=== PATIENT | male | born 1975 | race Caucasian/White ===

== ENCOUNTER 2016-10-28 01:16 | Observation (INO) | payer MEDICARE, OTHER ==
[2016-10-28] MEDS ORDERED: SODIUM CHLORIDE 0.9% 1,000 ML IV ONE (01:50)
--- NOTE | 2016-10-28 01:56 | ED ---
General Adult HPI - General Chief complaint: Altered Mental Status Stated complaint: altered mental status Time Seen by Provider: 10/28/16 01:29 Source: patient, EMS, RN notes reviewed Mode of arrival: EMS Limitations: altered mental status - History of Present Illness Initial comments: Patient is a pleasant 41-year-old male presenting to the emergency department with concerns regarding change in mental status. His was reported by the patient's girlfriend. Patient admits to drinking alcohol. Patient has no complaints. Patient states he does not feel confused. Patient denies any injury. Patient is difficult to understand. Denies drug use. - Related Data Previous Rx's Medication Instructions Recorded Atorvastatin [Lipitor] 20 mg PO HS #14 tab 01/24/16 Cyclobenzaprine [Flexeril] 10 mg PO TID #21 tab 01/24/16 cloNIDine HCL [Catapres] 0.1 mg PO TID #21 tab 01/24/16 Citalopram Hydrobromide [CeleXA] 20 mg PO AC-LUNCH #30 tab 08/06/16 Divalproex ER [Depakote ER] 1,500 mg PO HS #90 tab.er.24h 08/06/16 Haloperidol [Haldol] 10 mg PO BID #120 tab 08/06/16 Ibuprofen [Motrin] 600 mg PO TID PRN #0 tab 08/06/16 LORazepam [Ativan] 1 mg PO HS #14 tab 08/06/16 Nicotine 14Mg/24Hr Patch [Habitrol] 1 patch TRANSDERM DAILY #30 patch 08/06/16 traZODone HCL [Desyrel] 100 mg PO HS #30 tab 08/06/16 Allergies Allergy/AdvReac Type Severity Reaction Status Date / Time No Known Allergies Allergy Verified 08/04/16 02:23 Review of Systems ROS Statement: Those systems with pertinent positive or pertinent negative responses have been documented in the HPI. ROS Other: All systems not noted in ROS Statement are negative. Constitutional: Denies: fever Eyes: Denies: eye pain ENT: Denies: ear pain Respiratory: Denies: cough Cardiovascular: Denies: chest pain Endocrine: Denies: fatigue Gastrointestinal: Denies: abdominal pain Genitourinary: Denies: dysuria Musculoskeletal: Denies: back pain Skin: Denies: rash Neurological: Denies: headache Past Medical History Past Medical History: Hyperlipidemia, Hypertension History of Any Multi-Drug Resistant Organisms: None Reported Past Surgical History: No Surgical Hx Reported Past Anesthesia/Blood Transfusion Reactions: No Reported Reaction Past Psychological History: Anxiety, Bipolar, Depression, Panic Disorder Smoking Status: Current every day smoker Past Alcohol Use History: None Reported Additional Past Alcohol Use History / Comment(s): drinks only one can a beer per day Past Drug Use History: Marijuana Additional Drug Use History / Comment(s): Pt states he smokes marijuana daily - Past Family History Mother Family Medical History: Diabetes Mellitus General Exam Limitations: altered mental status, physical limitation General appearance: alert, in no apparent distress Head exam: Present: atraumatic, normocephalic Eye exam: Present: normal appearance, PERRL, other (Patient refuses to follow fingers for examination of extraocular muscles and nystatin less despite multiple attempts.) ENT exam: Present: normal oropharynx Neck exam: Present: normal inspection Respiratory exam: Present: normal lung sounds bilaterally Cardiovascular Exam: Present: regular rate, normal rhythm GI/Abdominal exam: Present: soft. Absent: tenderness Extremities exam: Present: normal inspection Neurological exam: Present: alert, CN II-XII intact. Absent: motor sensory deficit Expanded Patient oriented to: Present: person, place. Absent: time Motor strength exam: RUE: 5, LUE: 5, RLE: 5, LLE: 5 Psychiatric exam: Present: flat affect Skin exam: Absent: rash Course Vital Signs 10/28/16 01:24 Temperature 97 F L Pulse Rate 87 Respiratory 16 Rate Blood Pressure 205/102 Medical Decision Making - Medical Decision Making Patient reevaluated and is somewhat more alert. Patient does have more clear speech. Patient states he is not currently on benzodiazepines. Patient denies taking any drugs or medications that are not his. Case was discussed with practitioner motor coach tour operator, who will admit for Dr. Jessica, covering for hospital call. - Lab Data Result diagrams: 10/28/16 01:33 10/28/16 01:33 Lab Results 10/28/16 10/28/16 10/28/16 Range/Units 01:33 01:33 01:33 WBC 7.3 (3.8-10.6) k/uL RBC 4.19 L (4.30-5.90) m/uL Hgb 12.9 L (13.0-17.5) gm/dL Hct 38.2 L (39.0-53.0) % MCV 91.3 (80.0-100.0) fL MCH 30.8 (25.0-35.0) pg MCHC 33.7 (31.0-37.0) g/dL RDW 13.1 (11.5-15.5) % Plt Count 209 (150-450) k/uL Neutrophils % 60 % Lymphocytes % 28 % Monocytes % 6 % Eosinophils % 3 % Basophils % 0 % Neutrophils # 4.4 (1.3-7.7) k/uL Lymphocytes # 2.0 (1.0-4.8) k/uL Monocytes # 0.4 (0-1.0) k/uL Eosinophils # 0.2 (0-0.7) k/uL Basophils # 0.0 (0-0.2) k/uL PT (9.0-12.0) sec INR (<1.1) APTT (22.0-30.0) sec Sodium 136 L (137-145) mmol/L Potassium 4.5 (3.5-5.1) mmol/L Chloride 101 (98-107) mmol/L Carbon Dioxide 22 (22-30) mmol/L Anion Gap 13 mmol/L BUN 12 (9-20) mg/dL Creatinine 0.70 (0.66-1.25) mg/dL Est GFR (MDRD) Af Amer >60 (>60 ml/min/1.73 sqM) Est GFR (MDRD) Non-Af >60 (>60 ml/min/1.73 sqM) Glucose 94 (74-99) mg/dL POC Glucose (mg/dL) (75-99) mg/dL POC Glu Trading Specialist ID Calcium 10.2 (8.4-10.2) mg/dL Total Bilirubin 0.4 (0.2-1.3) mg/dL AST 23 (17-59) U/L ALT 35 (21-72) U/L Alkaline Phosphatase 58 (38-126) U/L Total Creatine Kinase 208 H (55-170) U/L CK-MB (CK-2) 0.8 (0.0-2.4) ng/mL CK-MB (CK-2) Rel Index 0.4 Troponin I <0.012 (0.000-0.034) ng/mL Total Protein 7.8 (6.3-8.2) g/dL Albumin 4.9 (3.5-5.0) g/dL Urine Color Urine Appearance (Clear) Urine pH (5.0-8.0) Ur Specific Vernon (1.001-1.035) Urine Protein (Negative) Urine Glucose (UA) (Negative) Urine Ketones (Negative) Urine Blood (Negative) Urine Nitrate (Negative) Urine Bilirubin (Negative) Urine Urobilinogen (<2.0) mg/dL Ur Leukocyte Esterase (Negative) Urine Opiates Screen (NotDetected) Ur Oxycodone Screen (NotDetected) Urine Methadone Screen (NotDetected) Ur Propoxyphene Screen (NotDetected) Ur Barbiturates Screen (NotDetected) Valproic Acid ug/mL U Tricyclic Antidepress (NotDetected) Ur Phencyclidine Scrn (NotDetected) Ur Amphetamines Screen (NotDetected) U Methamphetamines Scrn (NotDetected) U Benzodiazepines Scrn (NotDetected) Urine Cocaine Screen (NotDetected) U Marijuana (THC) Screen (NotDetected) Serum Alcohol <10 mg/dL 10/28/16 10/28/16 10/28/16 Range/Units 01:33 01:33 01:58 WBC (3.8-10.6) k/uL RBC (4.30-5.90) m/uL Hgb (13.0-17.5) gm/dL Hct (39.0-53.0) % MCV (80.0-100.0) fL MCH (25.0-35.0) pg MCHC (31.0-37.0) g/dL RDW (11.5-15.5) % Plt Count (150-450) k/uL Neutrophils % % Lymphocytes % % Monocytes % % Eosinophils % % Basophils % % Neutrophils # (1.3-7.7) k/uL Lymphocytes # (1.0-4.8) k/uL Monocytes # (0-1.0) k/uL Eosinophils # (0-0.7) k/uL Basophils # (0-0.2) k/uL PT 10.1 (9.0-12.0) sec INR 1.0 (<1.1) APTT 23.2 (22.0-30.0) sec Sodium (137-145) mmol/L Potassium (3.5-5.1) mmol/L Chloride (98-107) mmol/L Carbon Dioxide (22-30) mmol/L Anion Gap mmol/L BUN (9-20) mg/dL Creatinine (0.66-1.25) mg/dL Est GFR (MDRD) Af Amer (>60 ml/min/1.73 sqM) Est GFR (MDRD) Non-Af (>60 ml/min/1.73 sqM) Glucose (74-99) mg/dL POC Glucose (mg/dL) (75-99) mg/dL POC Glu Trading Specialist ID Calcium (8.4-10.2) mg/dL Total Bilirubin (0.2-1.3) mg/dL AST (17-59) U/L ALT (21-72) U/L Alkaline Phosphatase (38-126) U/L Total Creatine Kinase (55-170) U/L CK-MB (CK-2) (0.0-2.4) ng/mL CK-MB (CK-2) Rel Index Troponin I (0.000-0.034) ng/mL Total Protein (6.3-8.2) g/dL Albumin (3.5-5.0) g/dL Urine Color Urine Appearance (Clear) Urine pH (5.0-8.0) Ur Specific Vernon (1.001-1.035) Urine Protein (Negative) Urine Glucose (UA) (Negative) Urine Ketones (Negative) Urine Blood (Negative) Urine Nitrate (Negative) Urine Bilirubin (Negative) Urine Urobilinogen (<2.0) mg/dL Ur Leukocyte Esterase (Negative) Urine Opiates Screen Not Detected (NotDetected) Ur Oxycodone Screen Not Detected (NotDetected) Urine Methadone Screen Not Detected (NotDetected) Ur Propoxyphene Screen Not Detected (NotDetected) Ur Barbiturates Screen Not Detected (NotDetected) Valproic Acid 96.8 ug/mL U Tricyclic Antidepress Not Detected (NotDetected) Ur Phencyclidine Scrn Not Detected (NotDetected) Ur Amphetamines Screen Not Detected (NotDetected) U Methamphetamines Scrn Not Detected (NotDetected) U Benzodiazepines Scrn Detected H (NotDetected) Urine Cocaine Screen Not Detected (NotDetected) U Marijuana (THC) Screen Detected H (NotDetected) Serum Alcohol mg/dL 10/28/16 10/28/16 Range/Units 01:58 02:28 WBC (3.8-10.6) k/uL RBC (4.30-5.90) m/uL Hgb (13.0-17.5) gm/dL Hct (39.0-53.0) % MCV (80.0-100.0) fL MCH (25.0-35.0) pg MCHC (31.0-37.0) g/dL RDW (11.5-15.5) % Plt Count (150-450) k/uL Neutrophils % % Lymphocytes % % Monocytes % % Eosinophils % % Basophils % % Neutrophils # (1.3-7.7) k/uL Lymphocytes # (1.0-4.8) k/uL Monocytes # (0-1.0) k/uL Eosinophils # (0-0.7) k/uL Basophils # (0-0.2) k/uL PT (9.0-12.0) sec INR (<1.1) APTT (22.0-30.0) sec Sodium (137-145) mmol/L Potassium (3.5-5.1) mmol/L Chloride (98-107) mmol/L Carbon Dioxide (22-30) mmol/L Anion Gap mmol/L BUN (9-20) mg/dL Creatinine (0.66-1.25) mg/dL Est GFR (MDRD) Af Amer (>60 ml/min/1.73 sqM) Est GFR (MDRD) Non-Af (>60 ml/min/1.73 sqM) Glucose (74-99) mg/dL POC Glucose (mg/dL) 106 H (75-99) mg/dL POC Glu Trading Specialist ID Alicia Aviles A Calcium (8.4-10.2) mg/dL Total Bilirubin (0.2-1.3) mg/dL AST (17-59) U/L ALT (21-72) U/L Alkaline Phosphatase (38-126) U/L Total Creatine Kinase (55-170) U/L CK-MB (CK-2) (0.0-2.4) ng/mL CK-MB (CK-2) Rel Index Troponin I (0.000-0.034) ng/mL Total Protein (6.3-8.2) g/dL Albumin (3.5-5.0) g/dL Urine Color Light Yellow Urine Appearance Clear (Clear) Urine pH 7.5 (5.0-8.0) Ur Specific Vernon 1.005 (1.001-1.035) Urine Protein Negative (Negative) Urine Glucose (UA) Negative (Negative) Urine Ketones Negative (Negative) Urine Blood Negative (Negative) Urine Nitrate Negative (Negative) Urine Bilirubin Negative (Negative) Urine Urobilinogen <2.0 (<2.0) mg/dL Ur Leukocyte Esterase Negative (Negative) Urine Opiates Screen (NotDetected) Ur Oxycodone Screen (NotDetected) Urine Methadone Screen (NotDetected) Ur Propoxyphene Screen (NotDetected) Ur Barbiturates Screen (NotDetected) Valproic Acid ug/mL U Tricyclic Antidepress (NotDetected) Ur Phencyclidine Scrn (NotDetected) Ur Amphetamines Screen (NotDetected) U Methamphetamines Scrn (NotDetected) U Benzodiazepines Scrn (NotDetected) Urine Cocaine Screen (NotDetected) U Marijuana (THC) Screen (NotDetected) Serum Alcohol mg/dL - Radiology Data Radiology results: report reviewed (CT brain shows no acute abnormality), image reviewed (Chest x-ray shows possible mild pulmonary vascular congestion.) Disposition Clinical Impression: Altered mental status Disposition: ADMITTED IP TO THIS HOSP
[2016-10-28 02:08] LABS: Basophils % (A) 0 %; CH 31.9; CHCM 35.1; Eosinophils # (A) 0.2 k/uL (0-0.7); Eosinophils % (A) 3 %; HCT 38.2 % (39.0-53.0); HDW 2.37; HGB 12.9 gm/dL (13.0-17.5); Luc # (Auto) 0.13; Luc % (Auto) 2; Lymphocytes % (A) 28 %; MCH 30.8 pg (25.0-35.0); MCHC 33.7 g/dL (31.0-37.0); MCV 91.3 fL (80.0-100.0); Mean Platelet Volume 8.1; Monocytes # (A) 0.4 k/uL (0-1.0); Monocytes % (A) 6 %; Neutrophils # (A) 4.4 k/uL (1.3-7.7); Neutrophils % (A) 60 %; RBC 4.19 m/uL (4.30-5.90); RDW 13.1 % (11.5-15.5); WBC 7.3 k/uL (3.8-10.6); WBC (Perox) 7.28
[2016-10-28 02:09] LABS: Appearance,Urine Clear (Clear); Bilirubin,Urine Negative (Negative); Glucose,Urine (UA) Negative (Negative); Ketones,Urine Negative (Negative); Leukocyte Esterase,Urine Negative (Negative); Nitrite,Urine Negative (Negative); PH, Urine 7.5 (5.0-8.0); Protein,Urine Negative (Negative); Specific Gravity,Urine 1.005 (1.001-1.035); UA Billing (MACRO vs. MICRO) CHEM; Urobilinogen,Urine <2.0 mg/dL (<2.0)
[2016-10-28 02:18] LABS: ALT 35 U/L (21-72); AST 23 U/L (17-59); Alcohol <10 mg/dL; Alkaline Phosphatase 58 U/L (38-126); Anion Gap 13 mmol/L; Blood Urea Nitrogen 12 mg/dL (9-20); Calcium 10.2 mg/dL (8.4-10.2); Carbon Dioxide 22 mmol/L (22-30); Chloride 101 mmol/L (98-107); Glucose 94 mg/dL (74-99); Non-African American GFR(MDRD) >60 (>60 ml/min/1.73 sqM); Partial Thromboplastin Time 23.2 sec (22.0-30.0); Potassium 4.5 mmol/L (3.5-5.1); Prothrombin Time 10.1 sec (9.0-12.0); Sodium 136 mmol/L (137-145); Total Bilirubin 0.4 mg/dL (0.2-1.3); Total Protein 7.8 g/dL (6.3-8.2)
[2016-10-28 02:28] LABS: Creatine Kinase 208 U/L (55-170)
[2016-10-28 02:41] LABS: Creatine Kinase MB 0.8 ng/mL (0.0-2.4); Troponin I <0.012 ng/mL (0.000-0.034)
[2016-10-28 02:42] LABS: Glucose,Whole Blood 106 mg/dL (75-99)
--- NOTE | 2016-10-28 02:49 | CT ---
EXAMINATION TYPE: CT brain wo con DATE OF EXAM: 10/28/2016 2:18 AM COMPARISON: None. HISTORY: AMS CT DLP: 1116.00 mGycm Automated exposure control for dose reduction was used. FINDINGS: There is no acute intracranial hemorrhage, mass effect, or midline shift identified. The ventricles and sulci are within normal limits in size. The globes are intact. Mucosal thickening and opacificat ion is noted in the right maxillary sinus with chronic sinusitis changes. IMPRESSION: No acute intracranial hemorrhage, mass effect, or midline shift is seen. Sinusitis.
--- NOTE | 2016-10-28 03:00 | XR ---
EXAMINATION TYPE: XR chest 2V DATE OF EXAM: 10/28/2016 2:19 AM COMPARISON: 07/21/2013 HISTORY: Altered mental status TECHNIQUE: Frontal and lateral views of the chest are obtained. FINDINGS: There is suggestion of mild pulmonary vascular congestion. No focal pneumonia pneumothorax or pleural effusion is noted. Heart is not enlarged. The osseous structures are intact. IMPRESSION: 1. Mild pulmonary vascular congestion. 2. No focal pneumonia.
[2016-10-28] MEDS ORDERED: NALOXONE 0.4 MG/ML 1 ML VIAL IV PRN (03:29)
[2016-10-28] MEDS ORDERED: SODIUM CHLORIDE 0.9% 1,000 ML IV SCH (03:30)
[2016-10-28] MEDS ORDERED: cloNIDine 0.1 MG/24HR PATCH 1 PATCH PATCH TRANSDERM SCH (04:00)
[2016-10-28 04:53] VITALS: BMI 26.0
[2016-10-28] MEDS ORDERED: TAMSULOSIN 0.4 MG CAP.ER.24H PO STA (09:50)
[2016-10-28] MEDS ORDERED: CITALOPRAM HYDROBROMIDE 20 MG TAB PO SCH (12:30)
--- NOTE | 2016-10-28 13:35 | CONS ---
DATE OF CONSULTATION: 10/28/2016 REASON FOR CONSULTATION: Urinary retention. HISTORY: The patient is a 41-year-old male admitted through the emergency room early this morning for evaluation of a change in his level of alertness. A CT scan of the brain showed no acute changes. Since the patient was in the emergency room, he has gradually improved as far as his level of alertness. While he was in the emergency room, it was attempted to obtain a urinalysis on the patient, but the patient could not void. A bladder scan at approximately 3:15 in the morning showed nearly 600 mL A catheter was inserted at 3:45 and reportedly drained 1000 mL of clear urine. Urinalysis was relatively unremarkable. The patient's catheter has remained in place. The patient denies any previous history of urinary retention. He says that prior to coming to the hospital he was voiding nearly every 30 minutes during the day and 3 or 4 times at night, but he says that this pattern began several months ago. He has had periodic urge incontinence to the point that he would have to change his clothes. He says he sometimes strains to void and had sensations of incomplete bladder emptying. He has no history of urinary tract infection or gross hematuria. He says his bowels have been fairly regular and usually move every other day. Patient's past medical history is significant in regard to benign hypertension, hypercholesterolemia, anxiety, panic attacks and bipolar disorder. Medications prior to admission included Lipitor, Flexeril, Catapres, Celexa, Depakote, Haldol, Motrin, Ativan, Desyrel and Habitrol. The patient has no allergies and has never undergone a surgical procedure. He has no history of diabetes, rheumatic fever, tuberculosis or hepatitis. REVIEW OF SYSTEMS: No history of seizures, asthma, ulcers, or rectal bleeding. SOCIAL HISTORY: The patient is single. He smokes approximately 1 pack per day and has smoked for over 20 years. Physical exam reveals a 41-year-old male who is fairly alert and able to give a fairly reliable history. Afebrile. Blood pressure 157/72. HEENT: No supraclavicular or cervical adenopathy. No scleral icterus. CHEST: Breathing is unlabored. ABDOMEN: Soft. No hepatosplenomegaly. No suprapubic tenderness. GENITALIA: A urethral catheter is in place and is draining clear urine. Both testicles are descended. No hernias is present. RECTAL: Anal sphincter tone and perianal sensation are normal. Prostate is 1 to 2+ enlarged, smooth and benign in consistency. There is no evidence of fecal impaction. Laboratory evaluation on admission included a BUN of 12, creatinine 0.70. Urinalysis was unremarkable. IMPRESSION: 1. Urinary retention. Based on the patient's symptoms, he appears to have had some element of incomplete bladder emptying for several months prior to admission to the hospital. The cause of this is unclear, but at his age is most likely related to obstruction in the region of the prostate or bladder neck. Unfortunately, the patient had a large amount of urine present in his bladder at the time of catheter placement and it is possible that he has some element of detrusor decomposition either because of acute retention or chronic retention. 2. Benign hypertension. 3. Bipolar disorder. RECOMMENDATION: The patient will be started on tamsulosin 0.4 mg daily. His catheter can be removed in the morning, but he should be monitored with the bladder scan unit to ensure that he is voiding adequately. If his postvoid residuals are over 200 to 300 mL then either a longer period of catheter drainage intermittent catheterization may need to be considered. Thank you for allowing me to participate in the care of this patient. MICKEY
[2016-10-28 15:50] VITALS: BP 138/79; PULSE 91; RESP 18; TEMP 97.1
--- NOTE | 2016-10-28 19:29 | HP ---
H&P AND DISCHARGE SUMMARY DATE OF ADMISSION: Patient is a 41-year-old who came to the emergency department with altered mental status. Patient apparently was drinking alcohol, although his alcohol level is ( ). Patient has been on a lot of medications, including urine positive for benzodiazepines and marijuana. Patient denied any fevers or chills. All the workup is negative, including CT of the chest. Patient is alert and oriented x3. Patient was brought in by his . He says she brought him here mostly because he was not nice with her. Patient has urinary retention; has been having urination problems for some time, because of which Urology evaluated the patient. They are recommending Flomax and keep the Connolly catheter. Patient will follow up with Urology as an outpatient. Patient's workup here is negative. Patient's confusion is probably related to toxic encephalopathy from medications and alcohol. REVIEW OF SYSTEMS: CONSTITUTIONAL: No fever, no malaise, no fatigue. HEENT: No recent visual problems or hearing problems. Denied any sore throat. CARDIOVASCULAR: No chest pain, orthopnea, PND, no palpitations, no syncope. PULMONARY: No shortness of breath, no cough, no hemoptysis. GASTROINTESTINAL: No diarrhea, no nausea, no vomiting, no abdominal pain. Normoactive bowel sounds. NEUROLOGICAL: No headaches, no weakness, no numbness. HEMATOLOGICAL: Denies any bleeding or petechiae. GENITOURINARY: Denies any burning micturition, frequency, or urgency. MUSCULOSKELETAL/RHEUMATOLOGICAL: Denies any joint pain, swelling, or any muscle pain. ENDOCRINE: Denies any polyuria or polydipsia. The rest of the 14 point review of systems is negative. Home medications include: 1. Atorvastatin. 2. Cyclobenzaprine. 3. Clonidine. 4. Citalopram. 5. Divalproex. 6. Haldol. 7. Ibuprofen. 8. Lorazepam. 9. Nicotine. 10. Trazodone. ALLERGIES: NO KNOWN DRUG ALLERGIES. PAST MEDICAL HISTORY: 1. Hyperlipidemia. 2. Hypertension. 3. Anxiety. 4. Bipolar disorder. Patient is probably on Depakote for bipolar disorder. Patient does smoke daily. Drinks one can of beer per day, he says. Patient uses marijuana. FAMILY HISTORY: Mother had diabetes mellitus. PHYSICAL EXAMINATION: VITAL SIGNS: Temperature 96.4, pulse 74, respiratory rate 20. Blood pressure is 157/72. Saturating at 98% on room air. GENERAL: The patient is alert and oriented x3, not in any acute distress. Well developed, well nourished. HEENT: Pupils are round and equally reacting to light. EOMI. No scleral icterus. No conjunctival pallor. Normocephalic, atraumatic. No pharyngeal erythema. No thyromegaly. CARDIOVASCULAR: S1 and S2 present. No murmurs, rubs, or gallops. PULMONARY: Chest is clear to auscultation, no wheezing or crackles. ABDOMEN: Soft, nontender, nondistended, normoactive bowel sounds. No palpable organomegaly. MUSCULOSKELETAL: No joint swelling or deformity. EXTREMITIES: No cyanosis, clubbing, or pedal edema. NEUROLOGICAL: Gross neurological examination did not reveal any focal deficits. SKIN: No rashes. LABORATORY DATA: No significant abnormality was appreciated. ASSESSMENT AND PLAN: 1. Altered mental status secondary to toxic encephalopathy from above-mentioned reasons. Patient is doing clinically well and will be discharged today. I do not see any reason to do any further workup. CT of the head is negative. 2. Urinary retention. Management as mentioned above. 3. Hypertension, well controlled with his home medications. Patient will follow with his primary care doctor. 4. Bipolar disorder. 5. Hyperlipidemia. 6. Alcohol abuse, nicotine abuse and marijuana abuse. Counseling was provided regarding that. Patient will be discharged today. Patient's discharge diet is cardiac. Activity as tolerated. Follow up with Dr. Lopez in one week. Follow with Dr. Daljit Quintanilla on October 30 at 2 p.m. This dictation is both H&P and discharge summary.
[2016-10-28] MEDS ORDERED: ATORVASTATIN 20 MG TAB PO SCH (21:00)
[2016-10-28] MEDS ORDERED: DIVALPROEX ER 500 MG TAB.ER.24H PO SCH (21:00)
== END 2016-10-28 16:52 | disposition home or self-care (01) ==
LOC: EC 01:16 → 4MS4W 03:30
PROVIDERS: ADMIT Hospitalist; ATTEND Hospitalist
DX: G92 Toxic encephalopathy (principal); R33.9 Retention of urine, unspecified; N39.41 Urge incontinence; I10 Essential (primary) hypertension; F31.9 Bipolar disorder, unspecified; E78.5 Hyperlipidemia, unspecified; F10.10 Alcohol abuse, uncomplicated; F17.200 Nicotine dependence, unspecified, uncomplicated; F12.10 Cannabis abuse, uncomplicated; F41.9 Anxiety disorder, unspecified; F41.0 Panic disorder [episodic paroxysmal anxiety]; Z79.899 Other long term (current) drug therapy; Z83.3 Family history of diabetes mellitus
CPT/HCPCS: 51798; 36415; 93005; 80164; 83880; 80053; 82550; 82553; 84484; 85025; 85610; 85730; 81003; 80306; 80320; 71020; 70450; 99285; 96360; 96361; G0378

== ENCOUNTER 2017-02-21 18:33 | Emergency (ER) | payer MEDICARE, OTHER ==
--- NOTE | 2017-02-21 19:08 | ED ---
Psych HPI - General Chief Complaint: Psychiatric Symptoms Stated Complaint: mental health Time Seen by Provider: 02/21/17 18:44 Source: patient, RN notes reviewed, old records reviewed Mode of arrival: ambulatory - History of Present Illness Initial Comments: Is a 41-year-old male presents emergency Department with chief complaint of suicidal ideation. Patient reports a history of bipolar disorder managed with Seroquel, Depakote, clonidine and haloperidol. Patient reports that she has been significantly depressed for the past few days. Patient reports that he is losing his house and possibly losing his daughter he does not have a household. Patient states that he is living with his significant other. Patient reports that he was seen earlier today in [facility] and was discharged. Patient reports that they did have to call the police and the police brought him here. Patient feels like he needs to be admitted. He denies a specific plan states that he has had multiple times in the past cut himself. Patient states that he has been admitted 6 months ago. He denies any recent thoughts or auditory or visual hallucinations. Patient denies any recent drug or alcohol use. - Related Data Home Medications Medication Instructions Recorded Confirmed Haloperidol [Haldol] 10 mg PO HS 10/28/16 02/21/17 Albuterol Inhaler [Ventolin Hfa 2 puff INHALATION RT-QID PRN 02/21/17 02/21/17 Inhaler] Citalopram Hydrobromide [CeleXA] 30 mg PO DAILY 02/21/17 02/21/17 Divalproex ER [Depakote ER] 500 mg PO QAM 02/21/17 02/21/17 Ibuprofen [Motrin] 800 mg PO TID PRN 02/21/17 02/21/17 QUEtiapine FUMARATE [SEROquel XR] 150 mg PO W/SUPPER 02/21/17 02/21/17 QUEtiapine XR [SEROquel XR] 150 mg PO HS 02/21/17 02/21/17 cloNIDine HCL [Catapres] 0.1 mg PO QAM 02/21/17 02/21/17 cloNIDine HCL [Catapres] 0.2 mg PO HS 02/21/17 02/21/17 Previous Rx's Medication Instructions Recorded Atorvastatin [Lipitor] 20 mg PO HS #14 tab 01/24/16 Divalproex ER [Depakote ER] 1,500 mg PO HS #90 tab.er.24h 08/06/16 Allergies Allergy/AdvReac Type Severity Reaction Status Date / Time tramadol Allergy Severe Itching Verified 02/21/17 18:50 Review of Systems ROS Statement: Those systems with pertinent positive or pertinent negative responses have been documented in the HPI. ROS Other: All systems not noted in ROS Statement are negative. Past Medical History Past Medical History: Hyperlipidemia, Hypertension History of Any Multi-Drug Resistant Organisms: None Reported Past Surgical History: No Surgical Hx Reported Past Anesthesia/Blood Transfusion Reactions: No Reported Reaction Past Psychological History: Anxiety, Bipolar, Depression, Panic Disorder Smoking Status: Current every day smoker Past Alcohol Use History: None Reported Additional Past Alcohol Use History / Comment(s): drinks only one can a beer per day Past Drug Use History: Marijuana Additional Drug Use History / Comment(s): Pt states he smokes marijuana daily - Past Family History Mother Family Medical History: Diabetes Mellitus General Exam Limitations: no limitations General appearance: alert, in no apparent distress Head exam: Present: atraumatic, normocephalic, normal inspection Eye exam: Present: normal appearance, PERRL, EOMI. Absent: scleral icterus, conjunctival injection, periorbital swelling ENT exam: Present: normal exam, mucous membranes moist Neck exam: Present: normal inspection. Absent: tenderness, meningismus, lymphadenopathy Respiratory exam: Present: normal lung sounds bilaterally. Absent: respiratory distress, wheezes, rales, rhonchi, stridor Cardiovascular Exam: Present: regular rate, normal rhythm, normal heart sounds. Absent: systolic murmur, diastolic murmur, rubs, gallop, clicks GI/Abdominal exam: Present: soft, normal bowel sounds. Absent: distended, tenderness, guarding, rebound, rigid Extremities exam: Present: normal inspection, full ROM, normal capillary refill. Absent: tenderness, pedal edema, joint swelling, calf tenderness Back exam: Present: normal inspection Neurological exam: Present: alert, oriented X3, CN II-XII intact Psychiatric exam: Present: normal affect, normal mood, depressed (Reports that he is significantly depressed. Patient states that he is suicidal. Denies a specific plan.), suicidal ideation Skin exam: Present: warm, dry, intact, normal color. Absent: rash Course Vital Signs 02/21/17 02/21/17 18:38 21:48 Temperature 97.5 F L 97.0 F L Pulse Rate 67 89 Respiratory 20 18 Rate Blood Pressure 159/85 168/90 O2 Sat by Pulse 97 97 Oximetry Medical Decision Making - Medical Decision Making Is a 41-year-old male presents emergency Department with chief complaint of suicidal ideation. Patient reports a history of bipolar disorder managed with Seroquel, Depakote, clonidine and haloperidol. Patient reports that she has been significantly depressed for the past few days. Patient reports that he is losing his house and possibly losing his daughter he does not have a household. Patient states that he is living with his significant other. Patient reports that he was seen earlier today in [facility] and was discharged. Pt sees Dr. Camargo and a counselour from [facility], whom know about his problems. EPS evaluated the patient. They feel it is safe to discharge him. Patient recently safety contract. He will be evaluated tomorrow by the mobile crisis unit in his home. Patient be discharged at this time. - Lab Data Lab Results 02/21/17 Range/Units 21:00 Urine Opiates Screen Not Detected (NotDetected) Ur Oxycodone Screen Not Detected (NotDetected) Urine Methadone Screen Not Detected (NotDetected) Ur Propoxyphene Screen Not Detected (NotDetected) Ur Barbiturates Screen Not Detected (NotDetected) U Tricyclic Antidepress Not Detected (NotDetected) Ur Phencyclidine Scrn Not Detected (NotDetected) Ur Amphetamines Screen Not Detected (NotDetected) U Methamphetamines Scrn Not Detected (NotDetected) U Benzodiazepines Scrn Detected H (NotDetected) Urine Cocaine Screen Not Detected (NotDetected) U Marijuana (THC) Screen Detected H (NotDetected) Disposition Clinical Impression: Depression Disposition: HOME SELF-CARE Condition: Good Instructions: Depression (ED) Additional Instructions: Patient advised to follow up with the mobile crisis unit tomorrow that is coming to home. Return to the emergency department if any alarming signs or symptoms occur. Referrals: Jorge Lopez MD [Primary Care Provider] - 1-2 days Time of Disposition: 21:42
[2017-02-21 21:48] VITALS: BP 168/90; PULSE 89; RESP 18; TEMP 97
== END 2017-02-21 21:48 | disposition home or self-care (01) ==
LOC: EC 18:33
DX: F32.9 Major depressive disorder, single episode, unspecified (principal); R45.851 Suicidal ideations; F41.9 Anxiety disorder, unspecified; F41.0 Panic disorder [episodic paroxysmal anxiety]; F17.200 Nicotine dependence, unspecified, uncomplicated; Z79.899 Other long term (current) drug therapy; Z88.6 Allergy status to analgesic agent
CPT/HCPCS: 80306; 82075; 99284

== ENCOUNTER 2017-05-29 18:36 | Inpatient (IN) | payer MEDICARE, MEDICAID ==
--- NOTE | 2017-05-29 19:04 | ED ---
General Adult HPI <JiAgapito - Last Filed: 05/29/17 21:01> - General Source: patient, RN notes reviewed Mode of arrival: ambulatory Limitations: no limitations <Anna Howell - Last Filed: 05/30/17 00:08> - General Chief complaint: Psychiatric Symptoms Stated complaint: SUICIDAL Time Seen by Provider: 05/29/17 18:53 - History of Present Illness Initial comments: 41-year-old male presents to the emergency department with a chief complaint of suicidal ideation. Patient states he's had suicidal thoughts for the last few weeks or so. Patient states he saw a psychiatrist and he is currently on Celexa. Patient states it is not helping. Patient states he thinks he would cut himself. Patient states he's had thoughts of suicidal and homicidal thoughts the past but today it is just suicidal. Patient states that he has never actually tried to hurt himself before. Patient states that his psychiatrist with medications are not helping so he thought that he should be seen. Patient states he does want help and not stop symptoms from performing the act. Patient denies any recent fever, chills, shortness of breath, chest pain, back pain, abdominal pain, nausea vomiting, numbness or tingling, dysuria or hematuria, constipation or diarrhea, headaches or visual changes, or any other current symptoms. (Anna Howell) - Related Data Home Medications Medication Instructions Recorded Confirmed Haloperidol [Haldol] 10 mg PO HS 10/28/16 05/29/17 Albuterol Inhaler [Ventolin Hfa 2 puff INHALATION RT-QID PRN 02/21/17 05/29/17 Inhaler] Citalopram Hydrobromide [CeleXA] 30 mg PO DAILY 02/21/17 05/29/17 Divalproex ER [Depakote ER] 500 mg PO QAM 02/21/17 05/29/17 Ibuprofen [Motrin] 800 mg PO TID PRN 02/21/17 05/29/17 QUEtiapine FUMARATE [SEROquel XR] 150 mg PO W/SUPPER 02/21/17 05/29/17 QUEtiapine XR [SEROquel XR] 150 mg PO HS 02/21/17 05/29/17 cloNIDine HCL [Catapres] 0.1 mg PO QAM 02/21/17 05/29/17 cloNIDine HCL [Catapres] 0.2 mg PO HS 02/21/17 05/29/17 Previous Rx's Medication Instructions Recorded Atorvastatin [Lipitor] 20 mg PO HS #14 tab 01/24/16 Divalproex ER [Depakote ER] 1,500 mg PO HS #90 tab.er.24h 08/06/16 Allergies Allergy/AdvReac Type Severity Reaction Status Date / Time tramadol Allergy Severe Itching Verified 05/29/17 19:19 Review of Systems ROS Other: All systems not noted in ROS Statement are negative. <Agapito Workman - Last Filed: 05/29/17 21:01> ROS Other: All systems not noted in ROS Statement are negative. <Anna Howell - Last Filed: 05/30/17 00:08> ROS Statement: Those systems with pertinent positive or pertinent negative responses have been documented in the HPI. Past Medical History Past Medical History: Hyperlipidemia, Hypertension History of Any Multi-Drug Resistant Organisms: None Reported Past Surgical History: No Surgical Hx Reported Past Anesthesia/Blood Transfusion Reactions: No Reported Reaction Past Psychological History: Anxiety, Bipolar, Depression, Panic Disorder Smoking Status: Current every day smoker Past Alcohol Use History: Occasional Past Drug Use History: Marijuana - Past Family History Mother Family Medical History: Diabetes Mellitus <Anna Howell - Last Filed: 05/30/17 00:08> General Exam Limitations: no limitations General appearance: alert, in no apparent distress Head exam: Present: atraumatic, normocephalic, normal inspection ENT exam: Present: normal exam, mucous membranes moist Neck exam: Present: normal inspection. Absent: tenderness, meningismus, lymphadenopathy Respiratory exam: Present: normal lung sounds bilaterally. Absent: respiratory distress, wheezes, rales, rhonchi, stridor Cardiovascular Exam: Present: regular rate, normal rhythm, normal heart sounds. Absent: systolic murmur, diastolic murmur, rubs, gallop, clicks Neurological exam: Present: alert, oriented X3, CN II-XII intact Psychiatric exam: Present: depressed, suicidal ideation. Absent: homicidal ideation Skin exam: Present: warm, dry, intact, normal color. Absent: rash <Anna Howell - Last Filed: 05/30/17 00:08> Medical Decision Making <Agapito Workman - Last Filed: 05/29/17 21:01> - Lab Data Result diagrams: 05/29/17 21:10 05/29/17 21:10 <Anna Howell - Last Filed: 05/30/17 00:08> - Medical Decision Making Medical decision-making. This is a 41-year-old male with a past history of mental health issues. He is on multiple medications. He states last month lost custody of his daughter. He is depressed at this time. States he is suicidal and his plan would be to cut himself. He reportedly has cut himself in the past. She again admits to having those thoughts. Currently denying any medical problems. Efforts are being made to find a position for the patient for further evaluation in a psychiatric unit. I have completed a certificate for admission. Dr. Workman (Agapito Workman) 41-year-old male presents to the emergency department with a chief complaint of suicidal ideation. Patient does have a history of depression currently on Celexa. At this time the patient does not appear to be suffering from any acute medical emergencies. This time patient is cleared to be evaluated by psychiatry. Patient at this time will be transferred to a facility for continued care. (Anna Howell) - Lab Data Lab Results 05/29/17 05/29/17 05/29/17 Range/Units 19:03 20:57 21:10 WBC 12.0 H (3.8-10.6) k/uL RBC 4.44 (4.30-5.90) m/uL Hgb 14.1 (13.0-17.5) gm/dL Hct 39.6 (39.0-53.0) % MCV 89.3 (80.0-100.0) fL MCH 31.7 (25.0-35.0) pg MCHC 35.5 (31.0-37.0) g/dL RDW 13.3 (11.5-15.5) % Plt Count 247 (150-450) k/uL Neutrophils % 58 % Lymphocytes % 29 % Monocytes % 5 % Eosinophils % 6 % Basophils % 1 % Neutrophils # 7.0 (1.3-7.7) k/uL Lymphocytes # 3.5 (1.0-4.8) k/uL Monocytes # 0.6 (0-1.0) k/uL Eosinophils # 0.7 (0-0.7) k/uL Basophils # 0.1 (0-0.2) k/uL Sodium (137-145) mmol/L Potassium (3.5-5.1) mmol/L Chloride (98-107) mmol/L Carbon Dioxide (22-30) mmol/L Anion Gap mmol/L BUN (9-20) mg/dL Creatinine (0.66-1.25) mg/dL Est GFR (MDRD) Af Amer (>60 ml/min/1.73 sqM) Est GFR (MDRD) Non-Af (>60 ml/min/1.73 sqM) Glucose (74-99) mg/dL Calcium (8.4-10.2) mg/dL Total Bilirubin (0.2-1.3) mg/dL AST (17-59) U/L ALT (21-72) U/L Alkaline Phosphatase (38-126) U/L Total Protein (6.3-8.2) g/dL Albumin (3.5-5.0) g/dL Urine Color Light Yellow Urine Appearance Clear (Clear) Urine pH 7.5 (5.0-8.0) Ur Specific [place] 1.003 (1.001-1.035) Urine Protein Negative (Negative) Urine Glucose (UA) Negative (Negative) Urine Ketones Negative (Negative) Urine Blood Negative (Negative) Urine Nitrite Negative (Negative) Urine Bilirubin Negative (Negative) Urine Urobilinogen <2.0 (<2.0) mg/dL Ur Leukocyte Esterase Negative (Negative) Urine Opiates Screen Not Detected (NotDetected) Ur Oxycodone Screen Not Detected (NotDetected) Urine Methadone Screen Not Detected (NotDetected) Ur Propoxyphene Screen Not Detected (NotDetected) Ur Barbiturates Screen Not Detected (NotDetected) U Tricyclic Antidepress Not Detected (NotDetected) Ur Phencyclidine Scrn Not Detected (NotDetected) Ur Amphetamines Screen Not Detected (NotDetected) U Methamphetamines Scrn Not Detected (NotDetected) U Benzodiazepines Scrn Not Detected (NotDetected) Urine Cocaine Screen Not Detected (NotDetected) U Marijuana (THC) Screen Detected H (NotDetected) 05/29/17 Range/Units 21:10 WBC (3.8-10.6) k/uL RBC (4.30-5.90) m/uL Hgb (13.0-17.5) gm/dL Hct (39.0-53.0) % MCV (80.0-100.0) fL MCH (25.0-35.0) pg MCHC (31.0-37.0) g/dL RDW (11.5-15.5) % Plt Count (150-450) k/uL Neutrophils % % Lymphocytes % % Monocytes % % Eosinophils % % Basophils % % Neutrophils # (1.3-7.7) k/uL Lymphocytes # (1.0-4.8) k/uL Monocytes # (0-1.0) k/uL Eosinophils # (0-0.7) k/uL Basophils # (0-0.2) k/uL Sodium 135 L (137-145) mmol/L Potassium 4.0 (3.5-5.1) mmol/L Chloride 103 (98-107) mmol/L Carbon Dioxide 22 (22-30) mmol/L Anion Gap 10 mmol/L BUN 8 L (9-20) mg/dL Creatinine 0.75 (0.66-1.25) mg/dL Est GFR (MDRD) Af Amer >60 (>60 ml/min/1.73 sqM) Est GFR (MDRD) Non-Af >60 (>60 ml/min/1.73 sqM) Glucose 88 (74-99) mg/dL Calcium 9.7 (8.4-10.2) mg/dL Total Bilirubin 0.2 (0.2-1.3) mg/dL AST 18 (17-59) U/L ALT 23 (21-72) U/L Alkaline Phosphatase 51 (38-126) U/L Total Protein 6.8 (6.3-8.2) g/dL Albumin 4.3 (3.5-5.0) g/dL Urine Color Urine Appearance (Clear) Urine pH (5.0-8.0) Ur Specific [place] (1.001-1.035) Urine Protein (Negative) Urine Glucose (UA) (Negative) Urine Ketones (Negative) Urine Blood (Negative) Urine Nitrite (Negative) Urine Bilirubin (Negative) Urine Urobilinogen (<2.0) mg/dL Ur Leukocyte Esterase (Negative) Urine Opiates Screen (NotDetected) Ur Oxycodone Screen (NotDetected) Urine Methadone Screen (NotDetected) Ur Propoxyphene Screen (NotDetected) Ur Barbiturates Screen (NotDetected) U Tricyclic Antidepress (NotDetected) Ur Phencyclidine Scrn (NotDetected) Ur Amphetamines Screen (NotDetected) U Methamphetamines Scrn (NotDetected) U Benzodiazepines Scrn (NotDetected) Urine Cocaine Screen (NotDetected) U Marijuana (THC) Screen (NotDetected) Disposition <Agapito Workman - Last Filed: 05/29/17 21:01> <Anna Howell - Last Filed: 05/30/17 00:08> Clinical Impression: Suicidal ideation, Depression Disposition: TRANSFER TO PSYCH HOSP/UNIT Referrals: Jorge Lopez MD [Primary Care Provider] - 1-2 days
[2017-05-29 21:00] LABS: Appearance,Urine Clear (Clear); Bilirubin,Urine Negative (Negative); Glucose,Urine (UA) Negative (Negative); Ketones,Urine Negative (Negative); Leukocyte Esterase,Urine Negative (Negative); Nitrite,Urine Negative (Negative); PH, Urine 7.5 (5.0-8.0); Protein,Urine Negative (Negative); Specific Gravity,Urine 1.003 (1.001-1.035); UA Billing (MACRO vs. MICRO) CHEM; Urobilinogen,Urine <2.0 mg/dL (<2.0)
[2017-05-29 21:21] LABS: Basophils # (A) 0.1 k/uL (0-0.2); Basophils % (A) 1 %; CH 31.1; CHCM 34.9; Eosinophils # (A) 0.7 k/uL (0-0.7); Eosinophils % (A) 6 %; HCT 39.6 % (39.0-53.0); HDW 2.24; HGB 14.1 gm/dL (13.0-17.5); Luc # (Auto) 0.19; Luc % (Auto) 2; Lymphocytes # (A) 3.5 k/uL (1.0-4.8); Lymphocytes % (A) 29 %; MCH 31.7 pg (25.0-35.0); MCHC 35.5 g/dL (31.0-37.0); MCV 89.3 fL (80.0-100.0); Mean Platelet Volume 7.1; Monocytes # (A) 0.6 k/uL (0-1.0); Monocytes % (A) 5 %; Neutrophils % (A) 58 %; RBC 4.44 m/uL (4.30-5.90); RDW 13.3 % (11.5-15.5); WBC (Perox) 12.18
[2017-05-29 21:33] LABS: ALT 23 U/L (21-72); AST 18 U/L (17-59); Alkaline Phosphatase 51 U/L (38-126); Anion Gap 10 mmol/L; Blood Urea Nitrogen 8 mg/dL (9-20); Calcium 9.7 mg/dL (8.4-10.2); Carbon Dioxide 22 mmol/L (22-30); Chloride 103 mmol/L (98-107); Glucose 88 mg/dL (74-99); Non-African American GFR(MDRD) >60 (>60 ml/min/1.73 sqM); Sodium 135 mmol/L (137-145); Total Bilirubin 0.2 mg/dL (0.2-1.3); Total Protein 6.8 g/dL (6.3-8.2)
[2017-05-30] MEDS ORDERED: ALBUTEROL NEBULIZED 2.5 MG/3 ML INHALATION PRN (01:27)
[2017-05-30] MEDS: cloNIDine HCL 0.1 MG TAB PO SCH (09:02)
[2017-05-30] MEDS: CITALOPRAM HYDROBROMIDE 10 MG TAB PO SCH (09:02)
[2017-05-30] MEDS: DIVALPROEX ER 500 MG TAB.ER.24H PO SCH ×2 (09:02→21:50)
[2017-05-30] MEDS: ATORVASTATIN 20 MG TAB PO SCH (21:50)
[2017-05-30] MEDS: HALOPERIDOL 5 MG TAB PO SCH (21:50)
[2017-05-30] MEDS: cloNIDine HCL 0.2 MG TAB PO SCH (21:50)
[2017-05-31] MEDS: CITALOPRAM HYDROBROMIDE 10 MG TAB PO SCH (08:35)
[2017-05-31] MEDS: cloNIDine HCL 0.1 MG TAB PO SCH (08:36)
[2017-05-31] MEDS: DIVALPROEX ER 500 MG TAB.ER.24H PO SCH ×2 (08:36→22:03)
[2017-05-31] MEDS ORDERED: ZIPRASIDONE 20 MG VIAL IM PRN (19:59)
[2017-05-31] MEDS ORDERED: MAGNESIUM HYDROXIDE 2,400 MG/10 ML CUP PO PRN (19:59)
[2017-05-31] MEDS ORDERED: LORazepam 1 MG TAB PO PRN (19:59)
[2017-05-31] MEDS ORDERED: ACETAMINOPHEN TAB 325 MG TAB PO PRN (19:59)
[2017-05-31] MEDS: cloNIDine HCL 0.2 MG TAB PO SCH (22:02)
[2017-05-31] MEDS: HALOPERIDOL 5 MG TAB PO SCH (22:02)
[2017-05-31] MEDS: IBUPROFEN 800 MG TAB PO PRN (22:03)
[2017-05-31] MEDS: ATORVASTATIN 20 MG TAB PO SCH (22:26)
[2017-06-01 08:33] LABS: Basophils # (A) 0.1 k/uL (0-0.2); Basophils % (A) 1 %; CH 30.8; CHCM 33.9; Eosinophils # (A) 0.5 k/uL (0-0.7); Eosinophils % (A) 7 %; HCT 40.9 % (39.0-53.0); HDW 2.26; HGB 14.1 gm/dL (13.0-17.5); Luc # (Auto) 0.21; Luc % (Auto) 3; Lymphocytes % (A) 39 %; MCH 31.5 pg (25.0-35.0); MCHC 34.5 g/dL (31.0-37.0); MCV 91.3 fL (80.0-100.0); Mean Platelet Volume 7.1; Monocytes # (A) 0.4 k/uL (0-1.0); Monocytes % (A) 5 %; Neutrophils # (A) 3.5 k/uL (1.3-7.7); Neutrophils % (A) 46 %; RBC 4.48 m/uL (4.30-5.90); RDW 13.1 % (11.5-15.5); WBC 7.6 k/uL (3.8-10.6); WBC (Perox) 8.09
[2017-06-01 09:07] LABS: ALT 27 U/L (21-72); AST 16 U/L (17-59); Alkaline Phosphatase 43 U/L (38-126); Anion Gap 9 mmol/L; Blood Urea Nitrogen 17 mg/dL (9-20); Calcium 9.7 mg/dL (8.4-10.2); Carbon Dioxide 25 mmol/L (22-30); Chloride 97 mmol/L (98-107); Glucose 78 mg/dL (74-99); Non-African American GFR(MDRD) >60 (>60 ml/min/1.73 sqM); Potassium 5.2 mmol/L (3.5-5.1); Sodium 131 mmol/L (137-145); Total Bilirubin 0.3 mg/dL (0.2-1.3); Total Protein 6.6 g/dL (6.3-8.2)
[2017-06-01] MEDS: CITALOPRAM HYDROBROMIDE 10 MG TAB PO SCH (09:11)
[2017-06-01] MEDS: DIVALPROEX ER 500 MG TAB.ER.24H PO SCH (09:12)
[2017-06-01] MEDS: cloNIDine HCL 0.1 MG TAB PO SCH (09:12)
[2017-06-01 10:45] VITALS: RESP 18
--- NOTE | 2017-06-01 12:20 | P.CONS ---
History of Present Illness - Reason for Consult Consult date: 06/01/17 (Medical H&P) - History of Present Illness This a 41-year-old gentleman with bipolar disorder comes in to the hospital with suicidal ideation. Patient states that his primary complaint is due to his daughter been taken away from him. Patient apparently was noted to get slightly agitated Today patient is having any headaches, blurry vision, nausea, vomiting, chest pain, difficulty breathing, urinary urgency or frequency. Patient was seen in the emergency room medications were continued. Patient was noted to have a Depakote level greater than 100 Review of Systems All systems: negative (Noted in HPI) Past Medical History Past Medical History: Hyperlipidemia, Hypertension History of Any Multi-Drug Resistant Organisms: None Reported Past Surgical History: No Surgical Hx Reported Past Anesthesia/Blood Transfusion Reactions: No Reported Reaction Past Psychological History: Anxiety, Bipolar, Depression, Panic Disorder Smoking Status: Current every day smoker Past Alcohol Use History: Occasional Past Drug Use History: Marijuana - Past Family History Mother Family Medical History: Diabetes Mellitus Medications and Allergies Home Medications Medication Instructions Recorded Confirmed Type Haloperidol [Haldol] 10 mg PO HS 10/28/16 05/29/17 History Albuterol Inhaler [Ventolin Hfa 2 puff INHALATION RT-QID PRN 02/21/17 05/29/17 History Inhaler] Citalopram Hydrobromide [CeleXA] 30 mg PO DAILY 02/21/17 05/29/17 History Divalproex ER [Depakote ER] 500 mg PO QAM 02/21/17 05/29/17 History Ibuprofen [Motrin] 800 mg PO TID PRN 02/21/17 05/29/17 History QUEtiapine FUMARATE [SEROquel XR] 150 mg PO W/SUPPER 02/21/17 05/29/17 History QUEtiapine XR [SEROquel XR] 150 mg PO HS 02/21/17 05/29/17 History cloNIDine HCL [Catapres] 0.1 mg PO QAM 02/21/17 05/29/17 History cloNIDine HCL [Catapres] 0.2 mg PO HS 02/21/17 05/29/17 History Allergies Allergy/AdvReac Type Severity Reaction Status Date / Time tramadol Allergy Severe Itching Verified 05/29/17 19:19 Physical Exam Vitals: Vital Signs Temp Pulse Pulse Resp BP BP Pulse Ox 06/01/17 10:44 71 18 128/74 06/01/17 07:27 98.2 F 52 L 16 136/62 05/31/17 22:30 60 16 136/80 05/31/17 15:00 98.1 F 59 L 20 129/63 98 Physical exam Gen. appearance oriented 3 in no distress Neck is supple no JVD Lungs good air entry clear to auscultation no rhonchi or wheezing Heart S1-S2 heard regular rate and rhythm no murmurs appreciated Abdomen is soft nontender no organomegaly bowel sounds are intact Neurologically cranial nerves II-12 grossly intact no focal motor or sensory deficits noted is able to repeat 3 items after 5 minutes is able to follow two- step commands. Psychiatric flat affect denies having any suicidal or homicidal ideation at this time. Skin no abnormalities appreciated Results CBC & Chem 7: 06/01/17 08:01 06/01/17 08:01 Labs: Abnormal Lab Results - Last 24 Hours (Table) 06/01/17 Range/Units 08:01 Sodium 131 L (137-145) mmol/L Potassium 5.2 H (3.5-5.1) mmol/L Chloride 97 L (98-107) mmol/L AST 16 L (17-59) U/L Valproic Acid 104.5 H* ug/mL Assessment and Plan Plan: #1 bipolar disorder disorder with the depressive episode and suicidal ideation #2. History of tobacco use #3 mild hyperkalemia plan Thank you for the consultation patient is medically stable for further workup is necessary Apparently Depakote level rhythm 100 is recommended for treatment in psychiatric patient's W recommend recommend placing the patient on a low potassium diet we'll defer the the follow-up to a psychiatrist
[2017-06-01] MEDS ORDERED: LORazepam 0.5 MG TAB PO PRN (13:58)
[2017-06-01] MEDS ORDERED: DIVALPROEX ER 500 MG TAB.ER.24H PO SCH (21:00)
[2017-06-01] MEDS: ATORVASTATIN 20 MG TAB PO SCH (21:07)
[2017-06-01] MEDS: cloNIDine HCL 0.2 MG TAB PO SCH (21:07)
[2017-06-01] MEDS: HALOPERIDOL 5 MG TAB PO SCH (21:07)
--- NOTE | 2017-06-01 23:15 | HP ---
DATE OF SERVICE: 06/01/2017 IDENTIFYING DATA: The patient is a 41-year-old male. He resides with his girlfriend. He presented to the emergency room. CHIEF COMPLAINT: The patient was anxious and depressed. He had suicide thoughts. He had thoughts of cutting himself. He has a long history of psychiatric issues and depression. HISTORY OF PRESENTING ILLNESS: The patient notes that he is following through [facility]. He has had previous hospitalizations at this facility. His last admission was August 04, 2016. At that time he also presented with depression and suicidal thinking. He had 4 previous psychiatric admissions to this facility. He did have a previous admission under petition because he had threatened his live-in girlfriend, who then called police. He has been on a number of psychotropic medications, including Depakote, Celexa and Haldol, which he continues to be on currently. It is noted that today the patient told me he smoked marijuana occasionally, though in the August admission it was documented that he was smoking marijuana daily. The patient reports that he takes his medications consistently. He says that he has had increasing stress going back to March 17, when his daughter was removed by CPS. He has a 10-year- old son who is in foster care and at this time they also took the 7-year-old daughter because the patient and his girlfriend, who are both the biologic parents. apparently were not able to care for the child. The only thing the patient could tell me about this was that his daughter has medical and mental health needs that CPS indicated the parents were not able to keep up with. The patient notes that since then he has been increasingly depressed, he has poor sleep. He said he got restarted on Seroquel and has been sleeping better. He says that he does have on and off problems with hallucinations. He was vague about whether he has had post-traumatic issues and any PTSD symptoms. He gets anxiety. He was not too clear about whether or not he gets panic attacks. His current medications include Celexa 30 mg a day, Seroquel XR 150 mg at supper and 150 mg at bedtime, Depakote 500 mg in the morning, 1500 mg at bedtime, and Haldol 10 mg a day. He is also on clonidine 0.1 mg in the morning, 0.2 mg in the evening for blood pressure, and Lipitor. He also uses an inhaler p.r.n., though says he does not use it very frequently. He reports no significant use of alcohol. He had a Depakote level on admission of 104. Marijuana was present in urine. SUBSTANCE USE HISTORY: As above. PAST MEDICAL HISTORY: Patient reports hypertension, hyperlipidemia and asthma issues. For further medical history and review of systems, please refer to medical consultation. FAMILY AND SOCIAL HISTORY: The patient resides with his girlfriend. He says the two of them have been together for over 10 years. They have a 10-year-old son and 7-year-old daughter, both in foster care. Patient is on Social Security Disability for mental health issues. He says that he has been followed at [facility] for over 10 years and had been seeing Dr. Caban, though now was referred to Ms. Baron NP. He has a correctional counselor/case manager, Sarina Russo. MENTAL STATUS EXAM: Patient was somewhat unkempt in appearance. Eye contact was good. Psychomotor activity was a little slow. Speech was monotone. He answered questions with brief responses. His thoughts were clear. He did not say a lot. Many of his answers were vague, without much detail. His affect was blunted, his mood reserved. He seemed somewhat distressed. On cognitive exam he was oriented x3 and alert. He didn't make an effort to answer formal cognitive questions. It was noteworthy that he seemed to try to answer some questions, though then would hesitate and respond by "I don't know." Insight uncertain. Judgment impaired. Fund of knowledge and intellectual level below average. ASSESSMENT: This 41-year-old male is diagnosed with major depression. He apparently has complications of psychotic symptoms. On previous admissions he has been diagnosed with major depression, bipolar disorder, alcohol dependence, in remission, cannabis use and borderline intellectual functioning. He appears to have limited support, has a limited support system. Strengths include that he apparently has been consistent in followup with [facility]. He has maintained an ongoing relationship over a number of years with his girlfriend. He has an ability to function independently. Weakness includes parenting issues and likely developmental disability issues. DIAGNOSIS: 1. Major depression. 2. Rule out bipolar affective disorder. 3. Cannabis dependence. 4. Rule out alcohol dependence, in remission. 5. 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 6. Hypertension. 7. Hyperlipidemia. RECOMMENDATIONS: Patient will be admitted for comprehensive medical, psychiatric and psychosocial evaluation. We will make efforts to engage the patient in individual and group therapeutic activities. I will continue the patient on current psychotropic medications, including Celexa 30 mg a day, Depakote 500 mg in the morning, 1500 mg in the evening, Haldol 10 mg in the evening, and Seroquel, which will be switched to Seroquel XR 300 mg at supper. We will need input from [facility]. I will get medical records. We will focus on stabilization and discharge planning. LORIED
[2017-06-02] MEDS: cloNIDine HCL 0.1 MG TAB PO SCH (08:53)
[2017-06-02] MEDS: CITALOPRAM HYDROBROMIDE 10 MG TAB PO SCH (08:53)
[2017-06-02] MEDS: IBUPROFEN 800 MG TAB PO PRN (09:38)
[2017-06-02] MEDS: ALBUTEROL INHALER 60 PUFF/8 GM INHALER INHALATION PRN ×3 (10:01→21:27)
[2017-06-02] MEDS: NICOTINE 14MG/24HR PATCH TRANSDERM SCH (10:44)
[2017-06-02] MEDS ORDERED: FLUoxetine HCL 20 MG CAP PO SCH (10:45)
[2017-06-02] MEDS: cloNIDine HCL 0.2 MG TAB PO SCH (20:55)
[2017-06-02] MEDS: ATORVASTATIN 20 MG TAB PO SCH (20:55)
[2017-06-02] MEDS: HALOPERIDOL 5 MG TAB PO SCH (20:55)
[2017-06-03 06:36] VITALS: BP 139/82; PULSE 65; TEMP 97.7
[2017-06-03] MEDS ORDERED: FLUoxetine HCL 20 MG CAP PO SCH (09:00)
[2017-06-03] MEDS: NICOTINE 14MG/24HR PATCH TRANSDERM SCH (09:09)
[2017-06-03] MEDS: cloNIDine HCL 0.1 MG TAB PO SCH (09:10)
[2017-06-03] MEDS: ALBUTEROL INHALER 60 PUFF/8 GM INHALER INHALATION PRN ×2 (09:21→12:31)
[2017-06-03] MEDS: IBUPROFEN 800 MG TAB PO PRN (10:00)
--- NOTE | 2017-06-03 11:01 | PN ---
DATE OF SERVICE: 06/02/2017 CHIEF COMPLAINT: The patient was anxious and depressed. He had suicide thoughts. He had thoughts of cutting himself. He has a long history of psychiatric issues and depression. INTERVAL HISTORY: The patient has been doing fair. He had a quiet evening last night. He slept fairly well today. He has been up and about. He was able to talk some about his situation at home. He acknowledges that at times he has trouble controlling his anger and it is anger that gets him into trouble. He has ups and downs in his mood. It is not clear that anger issues clearly align with how his mood is. He has been diagnosed with a thought disorder. It is not clear he has had good response to medications. He had gone off his medications including Haldol. It is not exactly clear what his issues were with medications. He suggested he was off of Haldol for perhaps, one, two or three weeks. He says that usually he is very careful not to miss medications and if he does he does not miss them for very long. He suggested that he got back on his Haldol about two weeks ago after being seen at [facility]. He says he does not feel Celexa has helped him and notes that he has been on Celexa for a considerable period of time. I had been in contact with his subscriber Ms. Baron NP at [facility]. She had indicated that he had not been maximized on Seroquel thus the plan is to increase his Seroquel up to therapeutic antipsychotic dose. The dose has gone up to 600 mg a day. The patient today states that he agrees with that change and noted that last night he slept better on the medication. He did say that he would like to consider an alternative antidepressant and was in agreement to switch him to Prozac. He has not had change in his general health. He tolerates psychotropic medication. MENTAL STATUS: The patient gave fairly good eye contact. He was a little restless. Speech was clear. He answered questions with brief responses. He was not too spontaneous though he was somewhat interactive. His affect was a little constricted. Mood is was quiet. He did not appear to be distressed. ASSESSMENT: I will continue the current diagnosis and treatment plan. I will discontinue Celexa and start the patient on Prozac 40 mg a day given that he has already been initiated on this SSRI. We should be able to start him on a more assertive dose without difficulties. We will continue to taper him off Depakote tomorrow. He will go down to 500 mg a day. We will aim to discontinue altogether. We will continue Seroquel XR 600 mg at supper and Haldol 10 mg at bedtime along with Prozac 40 mg a day as his primary psychotropic medications. He is also on Clonidine which he understood was for blood pressure though, it is not clear if there was an indication for psychiatric concerns as well. I discussed having short stay for the patient. I will aim to discharge the patient by the end of the week. MICKEY
[2017-06-03] MEDS ORDERED: DIVALPROEX 500 MG TABLET.DR PO SCH (21:00)
== END 2017-06-03 14:57 | disposition home or self-care (01) | DRG 885 ==
LOC: EC 18:36 → 3MHU 05-31 15:01
PROVIDERS: ADMIT Psychiatry & Neurology Psychiatry; ATTEND Psychiatry & Neurology Psychiatry
DX: F31.9 Bipolar disorder, unspecified (principal); R45.851 Suicidal ideations; E87.5 Hyperkalemia; I10 Essential (primary) hypertension; E78.5 Hyperlipidemia, unspecified; F17.200 Nicotine dependence, unspecified, uncomplicated; F12.20 Cannabis dependence, uncomplicated; J45.909 Unspecified asthma, uncomplicated; F41.0 Panic disorder [episodic paroxysmal anxiety]; F70 Mild intellectual disabilities; F10.21 Alcohol dependence, in remission; Z79.899 Other long term (current) drug therapy; Z88.5 Allergy status to narcotic agent
CPT/HCPCS: 36415; 80053; 80164; 80165; 80306; 81003; 84443; 85025; 94640; 99284

== ENCOUNTER 2017-10-24 12:27 | Inpatient (IN) | payer MEDICARE, MEDICAID ==
[2017-10-24] MEDS ORDERED: ONDANSETRON 4 MG/2 ML VIAL IVP STA (12:52)
[2017-10-24] MEDS ORDERED: SODIUM CHLORIDE 0.9% 1,000 ML IV STA (12:52)
[2017-10-24] MEDS ORDERED: FAMOTIDINE 20 MG/2 ML VIAL IV STA (12:53)
--- NOTE | 2017-10-24 12:55 | ED ---
General Adult HPI - General Chief complaint: Recheck/Abnormal Lab/Rx Stated complaint: general weakness Time Seen by Provider: 10/24/17 12:41 Source: patient, EMS, RN notes reviewed Mode of arrival: EMS Limitations: no limitations - History of Present Illness Initial comments: Patient is a pleasant 42-year-old male presenting to the emergency department for fatigue and loss of appetite. Patient states symptoms have been for the past several days. Patient has mild discomfort of his upper abdomen. Patient did vomit one time. No diarrhea or constipation. Patient states he's been sleeping quite a bit. No fevers. No upper respiratory symptoms. Patient states he has been off his medications for a few weeks. Patient states his appointment with [facility] was canceled and they will not refill his medications. - Related Data Home Medications Medication Instructions Recorded Confirmed Albuterol Inhaler [Ventolin Hfa 2 puff INHALATION RT-QID PRN 02/21/17 10/24/17 Inhaler] Ibuprofen [Motrin] 800 mg PO TID PRN 02/21/17 10/24/17 cloNIDine HCL [Catapres] 0.1 mg PO QAM 02/21/17 10/24/17 cloNIDine HCL [Catapres] 0.2 mg PO HS 02/21/17 10/24/17 Baclofen [Lioresal] 20 mg PO TID PRN 10/24/17 10/24/17 Divalproex ER [Depakote ER] 1,000 mg PO DAILY 10/24/17 10/24/17 Previous Rx's Medication Instructions Recorded Atorvastatin [Lipitor] 20 mg PO HS #14 tab 01/24/16 FLUoxetine HCL [PROzac] 40 mg PO DAILY #60 cap 06/03/17 Haloperidol [Haldol] 10 mg PO HS #30 06/03/17 Allergies Allergy/AdvReac Type Severity Reaction Status Date / Time tramadol Allergy Severe Itching Verified 10/24/17 12:43 Review of Systems ROS Statement: Those systems with pertinent positive or pertinent negative responses have been documented in the HPI. ROS Other: All systems not noted in ROS Statement are negative. Constitutional: Denies: fever, chills Eyes: Denies: eye pain ENT: Denies: ear pain Respiratory: Denies: cough, dyspnea Cardiovascular: Denies: chest pain Endocrine: Reports: fatigue Gastrointestinal: Reports: abdominal pain, nausea, vomiting (1 time). Denies: diarrhea, constipation Genitourinary: Denies: dysuria Musculoskeletal: Denies: back pain Skin: Denies: rash Neurological: Denies: headache Past Medical History Past Medical History: Hyperlipidemia, Hypertension History of Any Multi-Drug Resistant Organisms: None Reported Past Surgical History: No Surgical Hx Reported Past Anesthesia/Blood Transfusion Reactions: No Reported Reaction Past Psychological History: Anxiety, Bipolar, Depression, Panic Disorder Smoking Status: Current every day smoker Past Alcohol Use History: Occasional Past Drug Use History: Marijuana - Past Family History Mother Family Medical History: Diabetes Mellitus General Exam Limitations: no limitations General appearance: alert, in no apparent distress Head exam: Present: atraumatic Eye exam: Present: normal appearance, PERRL ENT exam: Present: normal oropharynx Neck exam: Present: normal inspection Respiratory exam: Present: normal lung sounds bilaterally Cardiovascular Exam: Present: regular rate, normal rhythm Expanded Peripheral pulses: 2+: Dorsalis Pedis (R), Dorsalis Pedis (L) GI/Abdominal exam: Present: soft, tenderness (Mild epigastric tenderness to palpation), normal bowel sounds. Absent: distended, guarding, rebound, rigid, pulsatile mass Extremities exam: Present: normal inspection. Absent: pedal edema, calf tenderness Neurological exam: Present: alert Psychiatric exam: Present: normal affect, normal mood Skin exam: Present: normal color Course Vital Signs 10/24/17 10/24/17 12:35 13:40 Temperature 98.1 F Pulse Rate 60 60 Respiratory 18 18 Rate Blood Pressure 154/86 142/80 O2 Sat by Pulse 98 98 Oximetry - Reevaluation(s) Reevaluation #1: 10/24/17 14:41 Patient reevaluated and resting comfortably in bed. Patient again is concerned about his medications and not being able to get in to [facility]. Patient states he just wants to go to sleep and never wake up. Patient request mental health evaluation. 10/24/17 15:48 Patient was seen by mental health services. They state patient was becoming agitated. Patient does request medication 10/24/17 16:28 Patient was seen by mental health services who will admit. Positive clinical certificate completed. EKG Findings - EKG Comments: EKG Findings:: Sinus bradycardia 53. UT 150. QRS 80. QT 414. QTC 388. Normal axis. Normal QRS. No acute ST change. Medical Decision Making - Lab Data Result diagrams: 10/24/17 13:13 10/24/17 13:13 Lab Results 10/24/17 10/24/17 10/24/17 Range/Units 13:13 13:13 13:13 WBC (3.8-10.6) k/uL RBC (4.30-5.90) m/uL Hgb (13.0-17.5) gm/dL Hct (39.0-53.0) % MCV (80.0-100.0) fL MCH (25.0-35.0) pg MCHC (31.0-37.0) g/dL RDW (11.5-15.5) % Plt Count (150-450) k/uL Neutrophils % % Lymphocytes % % Monocytes % % Eosinophils % % Basophils % % Neutrophils # (1.3-7.7) k/uL Lymphocytes # (1.0-4.8) k/uL Monocytes # (0-1.0) k/uL Eosinophils # (0-0.7) k/uL Basophils # (0-0.2) k/uL PT 10.8 (9.0-12.0) sec INR 1.1 (<1.2) APTT 23.5 (22.0-30.0) sec Sodium 135 L (137-145) mmol/L Potassium 4.4 (3.5-5.1) mmol/L Chloride 101 (98-107) mmol/L Carbon Dioxide 20 L (22-30) mmol/L Anion Gap 14 mmol/L BUN 8 L (9-20) mg/dL Creatinine 0.80 (0.66-1.25) mg/dL Est GFR (MDRD) Af Amer >60 (>60 ml/min/1.73 sqM) Est GFR (MDRD) Non-Af >60 (>60 ml/min/1.73 sqM) Glucose 94 (74-99) mg/dL Calcium 10.3 H (8.4-10.2) mg/dL Total Bilirubin 0.5 (0.2-1.3) mg/dL AST 16 L (17-59) U/L ALT 26 (21-72) U/L Alkaline Phosphatase 61 (38-126) U/L Total Creatine Kinase 108 (55-170) U/L CK-MB (CK-2) <0.2 (0.0-2.4) ng/mL CK-MB (CK-2) Rel Index Troponin I <0.012 (0.000-0.034) ng/mL Total Protein 7.8 (6.3-8.2) g/dL Albumin 4.7 (3.5-5.0) g/dL Amylase 54 (30-110) U/L Lipase 34 (23-300) U/L Urine Color Urine Appearance (Clear) Urine pH (5.0-8.0) Ur Specific [place] (1.001-1.035) Urine Protein (Negative) Urine Glucose (UA) (Negative) Urine Ketones (Negative) Urine Blood (Negative) Urine Nitrite (Negative) Urine Bilirubin (Negative) Urine Urobilinogen (<2.0) mg/dL Ur Leukocyte Esterase (Negative) Urine Opiates Screen (NotDetected) Ur Oxycodone Screen (NotDetected) Urine Methadone Screen (NotDetected) Ur Propoxyphene Screen (NotDetected) Ur Barbiturates Screen (NotDetected) U Tricyclic Antidepress (NotDetected) Ur Phencyclidine Scrn (NotDetected) Ur Amphetamines Screen (NotDetected) U Methamphetamines Scrn (NotDetected) U Benzodiazepines Scrn (NotDetected) Urine Cocaine Screen (NotDetected) U Marijuana (THC) Screen (NotDetected) 10/24/17 10/24/17 10/24/17 Range/Units 13:13 13:13 13:13 WBC 11.0 H (3.8-10.6) k/uL RBC 4.73 (4.30-5.90) m/uL Hgb 14.0 (13.0-17.5) gm/dL Hct 43.6 (39.0-53.0) % MCV 92.2 (80.0-100.0) fL MCH 29.6 (25.0-35.0) pg MCHC 32.1 (31.0-37.0) g/dL RDW 14.4 (11.5-15.5) % Plt Count 255 (150-450) k/uL Neutrophils % 73 % Lymphocytes % 19 % Monocytes % 5 % Eosinophils % 2 % Basophils % 0 % Neutrophils # 8.0 H (1.3-7.7) k/uL Lymphocytes # 2.1 (1.0-4.8) k/uL Monocytes # 0.5 (0-1.0) k/uL Eosinophils # 0.2 (0-0.7) k/uL Basophils # 0.1 (0-0.2) k/uL PT (9.0-12.0) sec INR (<1.2) APTT (22.0-30.0) sec Sodium (137-145) mmol/L Potassium (3.5-5.1) mmol/L Chloride (98-107) mmol/L Carbon Dioxide (22-30) mmol/L Anion Gap mmol/L BUN (9-20) mg/dL Creatinine (0.66-1.25) mg/dL Est GFR (MDRD) Af Amer (>60 ml/min/1.73 sqM) Est GFR (MDRD) Non-Af (>60 ml/min/1.73 sqM) Glucose (74-99) mg/dL Calcium (8.4-10.2) mg/dL Total Bilirubin (0.2-1.3) mg/dL AST (17-59) U/L ALT (21-72) U/L Alkaline Phosphatase (38-126) U/L Total Creatine Kinase (55-170) U/L CK-MB (CK-2) (0.0-2.4) ng/mL CK-MB (CK-2) Rel Index Troponin I (0.000-0.034) ng/mL Total Protein (6.3-8.2) g/dL Albumin (3.5-5.0) g/dL Amylase (30-110) U/L Lipase (23-300) U/L Urine Color Yellow Urine Appearance Clear (Clear) Urine pH 6.5 (5.0-8.0) Ur Specific [place] 1.008 (1.001-1.035) Urine Protein Negative (Negative) Urine Glucose (UA) Negative (Negative) Urine Ketones Trace H (Negative) Urine Blood Negative (Negative) Urine Nitrite Negative (Negative) Urine Bilirubin Negative (Negative) Urine Urobilinogen <2.0 (<2.0) mg/dL Ur Leukocyte Esterase Negative (Negative) Urine Opiates Screen Not Detected (NotDetected) Ur Oxycodone Screen Not Detected (NotDetected) Urine Methadone Screen Not Detected (NotDetected) Ur Propoxyphene Screen Not Detected (NotDetected) Ur Barbiturates Screen Not Detected (NotDetected) U Tricyclic Antidepress Not Detected (NotDetected) Ur Phencyclidine Scrn Not Detected (NotDetected) Ur Amphetamines Screen Not Detected (NotDetected) U Methamphetamines Scrn Not Detected (NotDetected) U Benzodiazepines Scrn Not Detected (NotDetected) Urine Cocaine Screen Not Detected (NotDetected) U Marijuana (THC) Screen Detected H (NotDetected) - Radiology Data Radiology results: image reviewed (Abdominal x-ray shows no acute process.) Disposition Clinical Impression: Depression, Suicidal ideation Disposition: TRANSFER TO PSYCH HOSP/UNIT Decision Time: 16:28
[2017-10-24 13:24] LABS: Basophils # (A) 0.1 k/uL (0-0.2); Basophils % (A) 0 %; Eosinophils # (A) 0.2 k/uL (0-0.7); Eosinophils % (A) 2 %; HCT 43.6 % (39.0-53.0); Lymphocytes # (A) 2.1 k/uL (1.0-4.8); Lymphocytes % (A) 19 %; MCH 29.6 pg (25.0-35.0); MCHC 32.1 g/dL (31.0-37.0); MCV 92.2 fL (80.0-100.0); Mean Platelet Volume 7.8; Monocytes # (A) 0.5 k/uL (0-1.0); Monocytes % (A) 5 %; Neutrophils % (A) 73 %; Platelet Count 255 k/uL (150-450); RBC 4.73 m/uL (4.30-5.90); RDW 14.4 % (11.5-15.5)
[2017-10-24 13:34] LABS: ALT 26 U/L (21-72); AST 16 U/L (17-59); Albumin 4.7 g/dL (3.5-5.0); Alkaline Phosphatase 61 U/L (38-126); Amylase 54 U/L (30-110); Anion Gap 14 mmol/L; Blood Urea Nitrogen 8 mg/dL (9-20); Calcium 10.3 mg/dL (8.4-10.2); Carbon Dioxide 20 mmol/L (22-30); Chloride 101 mmol/L (98-107); Glucose 94 mg/dL (74-99); Lipase 34 U/L (23-300); Potassium 4.4 mmol/L (3.5-5.1); Sodium 135 mmol/L (137-145); Total Bilirubin 0.5 mg/dL (0.2-1.3); Total Protein 7.8 g/dL (6.3-8.2)
[2017-10-24 13:36] LABS: INR 1.1 (<1.2); Partial Thromboplastin Time 23.5 sec (22.0-30.0); Prothrombin Time 10.8 sec (9.0-12.0)
[2017-10-24 13:43] LABS: Appearance,Urine Clear (Clear); Bilirubin,Urine Negative (Negative); Blood,Urine Negative (Negative); Color,Urine Yellow; Glucose,Urine (UA) Negative (Negative); Ketones,Urine Trace (Negative); Leukocyte Esterase,Urine Negative (Negative); Nitrite,Urine Negative (Negative); PH, Urine 6.5 (5.0-8.0); Protein,Urine Negative (Negative); Specific Gravity,Urine 1.008 (1.001-1.035); Urobilinogen,Urine <2.0 mg/dL (<2.0)
--- NOTE | 2017-10-24 13:43 | XR ---
EXAMINATION TYPE: XR KUB , 2 VIEWS DATE OF EXAM ORDERED: 10/24/2017 HISTORY: abdominal pain. COMPARISON: None. FINDINGS: The lung bases are clear. The abdominal gas pattern is normal. There is no evidence of obstruction or free air. No unusual calc ifications are seen. IMPRESSION: NO ACUTE INTRA-ABDOMINAL ABNORMALITY.
[2017-10-24 13:44] LABS: Creatine Kinase 108 U/L (55-170)
[2017-10-24 13:56] LABS: Creatine Kinase MB <0.2 ng/mL (0.0-2.4); Troponin I <0.012 ng/mL (0.000-0.034)
[2017-10-24 15:24] LABS: Amphetamine Screen,Urine Not Detected (NotDetected); Barbiturate Screen,Urine Not Detected (NotDetected); Benzodiazepines Screen,Urine Not Detected (NotDetected); Cocaine Screen,Urine Not Detected (NotDetected); Methadone Screen, Urine Not Detected (NotDetected); Opiate Screen,Urine Not Detected (NotDetected); Oxycodone Screen, Urine Not Detected (NotDetected); Phencyclidine Screen,Urine Not Detected (NotDetected); Tricyclic Antidepressant,Urine Not Detected (NotDetected); Urn Cannabinoid Scrn Detected (NotDetected)
[2017-10-24] MEDS ORDERED: HALOPERIDOL LACTATE 5 MG/ML 1 ML VIAL IM STA (15:35)
[2017-10-24] MEDS ORDERED: ZIPRASIDONE 20 MG VIAL IM PRN (17:20)
[2017-10-24] MEDS ORDERED: MAGNESIUM HYDROXIDE 2,400 MG/10 ML CUP PO PRN (17:20)
[2017-10-24] MEDS ORDERED: MAG HYDROX/AL HYDROX/SIMETH 30 ML CUP PO PRN (17:20)
[2017-10-24] MEDS ORDERED: ALBUTEROL INHALER 60 PUFF/8 GM INHALER INHALATION PRN (17:33)
[2017-10-24] MEDS: ACETAMINOPHEN TAB 325 MG TAB PO PRN (17:37)
[2017-10-24] MEDS: LORazepam 1 MG TAB PO PRN (17:37)
[2017-10-24] MEDS: NICOTINE 14MG/24HR PATCH TRANSDERM SCH (17:37)
[2017-10-24 18:23] VITALS: BMI 24.4
[2017-10-24] MEDS: HALOPERIDOL 5 MG TAB PO SCH (20:44)
[2017-10-24] MEDS: ATORVASTATIN 20 MG TAB PO SCH (20:44)
[2017-10-24] MEDS: DIVALPROEX ER 500 MG TAB.ER.24H PO SCH (20:44)
[2017-10-24] MEDS: cloNIDine HCL 0.2 MG TAB PO SCH (20:44)
[2017-10-24] MEDS ORDERED: OLANZapine 5 MG TAB PO SCH (21:00)
[2017-10-25 08:44] LABS: Basophils % (A) 0 %; Eosinophils # (A) 0.3 k/uL (0-0.7); Eosinophils % (A) 5 %; HCT 47.9 % (39.0-53.0); HGB 15.2 gm/dL (13.0-17.5); Lymphocytes # (A) 2.7 k/uL (1.0-4.8); Lymphocytes % (A) 38 %; MCH 29.1 pg (25.0-35.0); MCHC 31.7 g/dL (31.0-37.0); Monocytes # (A) 0.4 k/uL (0-1.0); Monocytes % (A) 5 %; Neutrophils # (A) 3.4 k/uL (1.3-7.7); Neutrophils % (A) 49 %; Platelet Count 307 k/uL (150-450); RBC 5.21 m/uL (4.30-5.90); RDW 14.2 % (11.5-15.5)
[2017-10-25] MEDS: cloNIDine HCL 0.1 MG TAB PO SCH (08:45)
[2017-10-25] MEDS: NICOTINE 14MG/24HR PATCH TRANSDERM SCH (08:45)
[2017-10-25 09:09] LABS: ALT 22 U/L (21-72); AST 30 U/L (17-59); Albumin 4.8 g/dL (3.5-5.0); Alkaline Phosphatase 59 U/L (38-126); Anion Gap 13 mmol/L; Blood Urea Nitrogen 12 mg/dL (9-20); Calcium 10.9 mg/dL (8.4-10.2); Carbon Dioxide 27 mmol/L (22-30); Chloride 102 mmol/L (98-107); Cholesterol 177 mg/dL (<200); Glucose 98 mg/dL (74-99); HDL Cholesterol 35 mg/dL (40-60); LDL Cholesterol,Calculated 105 mg/dL (0-99); Sodium 142 mmol/L (137-145); Total Bilirubin 0.5 mg/dL (0.2-1.3); Total Protein 8.1 g/dL (6.3-8.2); Triglycerides 186 mg/dL (<150)
[2017-10-25 09:43] VITALS: RESP 16
[2017-10-25] MEDS ORDERED: WATER FOR INJECTION, STERILE 10 ML IV ONE (13:13)
[2017-10-25] MEDS: ACETAMINOPHEN TAB 325 MG TAB PO PRN (14:44)
[2017-10-25] MEDS: LORazepam 1 MG TAB PO PRN (14:46)
[2017-10-25 16:12] LABS: Hemoglobin A1C 5.6 % (4.0-6.0)
[2017-10-25] MEDS: DIVALPROEX ER 500 MG TAB.ER.24H PO SCH (20:46)
[2017-10-25] MEDS: HALOPERIDOL 5 MG TAB PO SCH (20:46)
[2017-10-25] MEDS: cloNIDine HCL 0.2 MG TAB PO SCH (20:46)
[2017-10-25] MEDS: ATORVASTATIN 20 MG TAB PO SCH (20:46)
[2017-10-25] MEDS ORDERED: OLANZapine 10 MG TAB PO SCH (21:00)
--- NOTE | 2017-10-25 22:30 | P.MDCNMH ---
History of Present Illness H&P Date: 10/25/17 Chief Complaint: Depression Patient is a 42-year-old male with known history of hypertension, nicotine addiction, depression/bipolar disorder was brought to the hospital with symptoms of loss of appetite and fatigue. Patient has been having loss of interest which has been present for the past Several days. Otherwise patient denied any chest pain or shortness of breath.Patient has mild discomfort of his upper abdomen. Patient did vomit one time. No diarrhea or constipation. Patient states he's been sleeping quite a bit. No fevers. No upper respiratory symptoms. Patient states he has been off his medications for a few weeks. Patient states his appointment with [facility] was canceled and they will not refill his medications. Review of Systems Constitutional: Patient denies any fever or chills . No generalized weakness or weight loss. Abdomen: Patient denied nausea vomiting and diarrhea and abdominal pain. Cardiovascular: Patient denies any chest pain or short of breath no palpitations. Respiratory: patient denied any cough is from production. No shortness of breath Neurologic: Patient denied any numbness or tingling headache. Musculoskeletal: Patient denies any complaints of joint swelling or deformity. Skin: Negative Psychiatric: Depressed Endocrine: No heat or cold intolerance. No recent weight gain. Genitourinary: No dysuria or hematuria. All other 14 point ROS negative except the above Past Medical History Past Medical History: Hyperlipidemia, Hypertension History of Any Multi-Drug Resistant Organisms: None Reported Past Surgical History: No Surgical Hx Reported Past Anesthesia/Blood Transfusion Reactions: No Reported Reaction Past Psychological History: Anxiety, Bipolar, Depression, Panic Disorder Smoking Status: Current every day smoker Past Alcohol Use History: Occasional Additional Past Alcohol Use History / Comment(s): drinks only one can a beer per day Past Drug Use History: Marijuana Additional Drug Use History / Comment(s): Pt states he smokes marijuana daily - Past Family History Mother Family Medical History: Diabetes Mellitus Medications and Allergies Home Medications Medication Instructions Recorded Confirmed Type Atorvastatin [Lipitor] 20 mg PO HS #14 tab 01/24/16 10/24/17 Rx Albuterol Inhaler [Ventolin Hfa 2 puff INHALATION RT-QID PRN 02/21/17 10/24/17 History Inhaler] Ibuprofen [Motrin] 800 mg PO TID PRN 02/21/17 10/24/17 History cloNIDine HCL [Catapres] 0.1 mg PO QAM 02/21/17 10/24/17 History cloNIDine HCL [Catapres] 0.2 mg PO HS 02/21/17 10/24/17 History FLUoxetine HCL [PROzac] 40 mg PO DAILY #60 cap 06/03/17 10/24/17 Rx Haloperidol [Haldol] 10 mg PO HS #30 06/03/17 10/24/17 Rx Baclofen [Lioresal] 20 mg PO TID PRN 10/24/17 10/24/17 History Divalproex ER [Depakote ER] 1,000 mg PO DAILY 10/24/17 10/24/17 History Allergies Allergy/AdvReac Type Severity Reaction Status Date / Time tramadol Allergy Severe Itching Verified 10/24/17 12:43 Physical Exam Vitals: Vital Signs Temp Pulse Resp BP Pulse Ox 10/25/17 20:47 98 16 123/78 98 10/25/17 08:40 101 H 16 176/110 10/25/17 02:22 97.8 F 54 L 18 139/60 Intake and Output 10/25/17 10/25/17 10/25/17 06:59 14:59 22:59 Other: Weight 68.7 kg Patient Weight 10/26/17 06:59 Weight 68.7 kg PHYSICAL EXAMINATION: Patient is lying in the bed comfortably, no acute distress, awake alert and oriented.. HEENT: Normocephalic. Neck is supple. Pupils reactive. Nostrils clear. Oral cavity is moist. Ears reveal no drainage. Neck reveals no JVD, carotid bruits, or thyromegaly. CHEST EXAMINATION: Trachea is central. Symmetrical expansion. Lung terry clear to auscultation and percussion. CARDIAC: Normal S1, S2 with no gallops. No murmurs ABDOMEN: Soft. Bowel sounds normal. No organomegaly. No abdominal bruits. Extremities: reveal no edema. No clubbing or cyanosis Neurologically awake, alert, oriented x3 with well-coordinated movements. No focal deficits noted Skin: No rash or skin lesions. Psychiatric: Cooperative. Nonsuicidal Musculoskeletal: No joint swelling or deformity. Normal range of motion. Cranial Nerve Examination - Cranial Nerves Cranial Nerve I- Olfactory: Intact Cranial Nerve II- Optic: Intact Cranial Nerve III- Oculomotor: Intact Cranial Nerve IV- Trochlear: Intact Cranial Nerve V- Trigeminal: Intact Cranial Nerve - Abducens: Intact Cranial Nerve VII- Facial: Intact Cranial Nerve VIII- Auditory: Intact Cranial Nerve IX- Glossopharyngeal: Intact Cranial Nerve X- Vagus: Intact Cranial Nerve XI- Accessory: Intact Cranial Nerve XII- Hypoglossal: Intact Results CBC & Chem 7: 10/25/17 08:18 10/25/17 08:18 Labs: Abnormal Lab Results - Last 24 Hours (Table) 10/25/17 Range/Units 08:18 Calcium 10.9 H (8.4-10.2) mg/dL Triglycerides 186 H (<150) mg/dL LDL Cholesterol, Calc 105 H (0-99) mg/dL HDL Cholesterol 35 L (40-60) mg/dL Assessment and Plan Assessment: Acute psychosis on admission Depression and bipolar disorder Hypertension controlled Nicotine addiction Marijuana use UDS positive Mild hypercalcemia Plan: Patient will be continued on antidepressants and bipolar disorder medications. Patient does take Catapres at home which has been ordered. Otherwise patient needs repeat BMP and follow-up calcium level. Patient was counseled for smoking and marijuana use. Further recommendations based on the clinical course. Thank you for your consult
--- NOTE | 2017-10-26 05:32 | HP ---
HISTORY AND PHYSICAL IDENTIFYING DATA: Patient is a 42-year-old male. He resides with his significant other. He was referred through the emergency room for admission. CHIEF COMPLAINT: The patient was depressed. He was angry and anxious. He described anxiety that he says he has when he gets manic. He has a long history of psychiatric issues and intellectual disability. HISTORY OF PRESENT ILLNESS: The patient had a previous admission at this facility 05/31/2017. I refer the reader to my admission note for details. It was noted that he had 4 previous psychiatric admissions. He had previous admissions under petition for threatening his live-in partner. He does have some ongoing use of marijuana, though specifics of that are not clear. There have been significant family issues including the child protective services taking the 2 children from the home. The patient himself does have conviction for 4th degree criminal sexual conduct. He was somewhat vague about his current situation. He said he was sleeping poorly. He said he has been under a lot of stress, though he could not really give details. He said he has been having increasing anxiety, though he was not able to say what things might set off anxiety for him. It is noteworthy that when he was discharged from the hospital in May in his followup appointment with Ms. Draper, she noted that he was doing fairly well overall. He had some complaints of anxiety that he thought might relate to Prozac and that it might be setting off some wanda. On the other hand, there was no documentation of any clear manic symptoms other than poor sleep. His Prozac was reduced. He was seen July 02. Overall it was thought that his mood was improved. He had a followup appointment in early July. He was requesting to get started on Zyprexa, which was started at 5 mg a day. He had indicated to Korey Draper that Zyprexa had been helpful to him in the past. At that point, he was on Zyprexa 5 mg a day, Prozac 20 mg a day and Depakote a 1000 mg a day. Again, on that note of Baron he seemed to be doing fairly well in his mood that was the last contact he had with Ms Draper. Patient is not able to give much information as to what may have changed from July until now where he is having more problems with anxiety. He continues to live with his significant other. He has a lot of distress over the fact that the 2 children have been taken out of the home. The best I was able to tell from what he presented was that he has lost formal custody of the children permanently. He was vague about any substance abuse issues but did suggest that he uses marijuana. He apparently had not been not taking medications consistently of late. He is admitted for further evaluation. SUBSTANCE USE HISTORY: As above. PAST MEDICAL HISTORY AND REVIEW OF SYSTEMS: As per medical consultation. FAMILY AND SOCIAL HISTORY: I refer the reader to my admission note of June 01 for details. MENTAL STATUS: Patient gave fair eye contact. He was restless. He answered some questions with brief responses. He had a somewhat angry manner though had difficulty explaining what the issues were. His affect was intense. His mood dysphoric. He was moderately distressed. It was difficult to say if there was thought disorder. On cognitive exam, he was oriented and alert. He did make an effort to answer formal cognitive questions. He has some degree of mild intellectual disability. PHYSICAL EXAM: As per medical consultation. ASSESSMENT: This is a 42-year-old male. He is diagnosed with major depression. He may have underlying bipolar disorder, though I have not been able to see documentation of any clear manic episodes in the past. He likely continues with substance use issues, namely marijuana, which likely aggravates his mood symptoms. Strengths include that he has been able to maintain a relationship with his significant other. Weakness includes some limited understanding of his mental health needs. DIAGNOSES: 1. Major depression, chronic and recurrent with acute exacerbation. 2. Rule out bipolar affective disorder. 3. Cannabis dependence and acute marijuana withdrawal. 4. Rule out alcohol dependence in remission. 5. 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 6. Hypertension. 7. Hyperlipidemia. RECOMMENDATIONS: The patient will be admitted for comprehensive medical psychiatric and psychosocial evaluation. We will engage the patient in individual and group therapeutic activities. I will continue his current psychotropic medications though will titrate up on Zyprexa. I will increase his Zyprexa to 10 mg twice a day. I will continue Haldol 10 mg a day, Depakote 1000 mg a day along with Catapres 0.1 mg in the morning, 0.2 mg in the evening. At this point, it is not clear whether the Catapres actually relates to blood pressure issues or does also have a psychiatric component to it. Will coordinate with Ms. Draper in [facility] for treatment and discharge planning. MMMONSTERL / IJN: [id number] /
[2017-10-26] MEDS: OLANZapine 10 MG TAB PO SCH ×2 (08:47→20:04)
[2017-10-26] MEDS: LORazepam 1 MG TAB PO PRN ×2 (08:47→16:39)
[2017-10-26] MEDS: cloNIDine HCL 0.1 MG TAB PO SCH (08:47)
[2017-10-26] MEDS: IBUPROFEN 800 MG TAB PO PRN (16:38)
[2017-10-26] MEDS: BACLOFEN 10 MG TAB PO PRN (17:11)
[2017-10-26] MEDS: ATORVASTATIN 20 MG TAB PO SCH (20:03)
[2017-10-26] MEDS: DIVALPROEX ER 500 MG TAB.ER.24H PO SCH (20:04)
[2017-10-26] MEDS: HALOPERIDOL 5 MG TAB PO SCH (20:05)
--- NOTE | 2017-10-26 20:12 | PN ---
PROGRESS NOTE DATE OF SERVICE: 10/25/2017 CHIEF COMPLAINT: The patient was depressed. He was angry and anxious. He described anxiety that he says he gets when he is becoming manic. He has a long history of psychiatric issues and intellectual disability. INTERVAL HISTORY: Patient has been doing fair. He had a quiet evening last night. He said he did not sleep too well last night. Today he has been up and about. He says his mood is down. He was vague about what issues seem to be bothering him. He said that he had not been seen at [facility] for several months because his appointments were canceled. He was vague about that, though apparently he had not been making appointments. He did not have much insight about the situation. He does come out in the day area. He does not interact much with others. He seemed to have a down mood. He did not have change in his general health. He tolerates his psychotropic medications. MENTAL STATUS: Patient gave fair eye contact. Psychomotor activity was slow. Speech was monotone. He answered questions with brief responses. His thoughts were clear, his affect flat, mood depressed. He was moderately distressed. ASSESSMENT: I will continue the current diagnosis and treatment plan. I reviewed [facility] medical records. I will titrate up on Zyprexa. The patient had been started on 5 mg a day in July, though the dose had not been increased as it had been anticipated. We will continue to focus on stabilization and discharge planning. CORI / AVILA: [id number] /
--- NOTE | 2017-10-26 20:15 | PN ---
CORI / IJN: [id number] / MTDD
--- NOTE | 2017-10-26 20:21 | PN ---
PROGRESS NOTE DATE OF SERVICE: 10/26/2017 CHIEF COMPLAINT: The patient was depressed. He was angry and anxious. He described anxiety that he says he gets when he becomes manic. He has a long history of psychiatric issues and intellectual disability. INTERVAL HISTORY: Patient has been doing fair. He had a quiet evening last night. He slept fairly well today. He has been up. He says he has a better mood today. He feels a little more even in his mood. He continues to be fairly withdrawn in his manner. He does come out in the day area. He does not interact too much with others. He has not been attending the groups. He has been cooperative with staff. He feels that the increase in Zyprexa has helped. He has not had change in his general health. He tolerates his psychotropic medications. MENTAL STATUS: The patient gave fair eye contact. Psychomotor activity was slowed. Speech was monotone. He answered questions with brief responses. His thoughts were clear, his affect blunted, his mood quiet. He did not appear to be significantly distressed. ASSESSMENT: I will continue the current diagnosis and treatment plan. I will continue psychotropic medications the same. The patient seems to be making some progress. We will coordinate with [facility] for follow-up planning. MMMONSTERL / IJN: [id number] /
[2017-10-26] MEDS: cloNIDine HCL 0.2 MG TAB PO SCH (21:50)
[2017-10-27] MEDS: cloNIDine HCL 0.1 MG TAB PO SCH (09:22)
[2017-10-27] MEDS: OLANZapine 10 MG TAB PO SCH ×2 (09:22→20:14)
[2017-10-27] MEDS: LORazepam 1 MG TAB PO PRN ×2 (09:22→15:46)
[2017-10-27] MEDS: IBUPROFEN 800 MG TAB PO PRN ×2 (11:05→15:46)
[2017-10-27] MEDS: BACLOFEN 10 MG TAB PO PRN ×2 (11:10→19:01)
--- NOTE | 2017-10-27 16:40 | PN ---
PROGRESS NOTE DATE OF SERVICE: 10/27/2017 CHIEF COMPLAINT: The patient was depressed. He was angry and anxious. He described anxiety that he says he gets when he becomes manic. He has a long history of psychiatric issues and intellectual disability. INTERVAL HISTORY: Patient has been doing fairly well. He had a quiet evening last night. He slept well. Today he has been up. He wanders about. He keeps to himself. He does not interact much with others. He has a calm quiet manner today. He says that he is feeling fairly good. He was able to talk about some discharge planning issues. He was comfortable with a discharge plan of returning home tomorrow. He has not had change in his general health. He tolerates his psychotropic medications. MENTAL STATUS: Patient gave fair eye contact. Psychomotor activity was slow. Speech was monotone. He answered questions with brief responses. His thoughts were clear, his affect blunted, his mood quiet. He did not appear to be distressed. ASSESSMENT: Will continue to engage the patient in individual and group therapeutic activities. I will continue psychotropic medications the same. We will plan to set up outpatient followup and discharge patient tomorrow. MMMONSTERL / AVILA: [id number] /
[2017-10-27] MEDS: ATORVASTATIN 20 MG TAB PO SCH (20:13)
[2017-10-27] MEDS: DIVALPROEX ER 500 MG TAB.ER.24H PO SCH (20:13)
[2017-10-27] MEDS: HALOPERIDOL 5 MG TAB PO SCH (20:14)
[2017-10-27] MEDS: cloNIDine HCL 0.2 MG TAB PO SCH (20:15)
[2017-10-28 07:05] VITALS: TEMP 97.8
[2017-10-28] MEDS: cloNIDine HCL 0.1 MG TAB PO SCH (08:41)
[2017-10-28] MEDS: OLANZapine 10 MG TAB PO SCH (08:41)
[2017-10-28 09:31] VITALS: BP 123/75; PULSE 103
[2017-10-28] MEDS: IBUPROFEN 800 MG TAB PO PRN (09:59)
[2017-10-28] MEDS: BACLOFEN 10 MG TAB PO PRN (09:59)
--- NOTE | 2017-10-28 11:14 | DS ---
DISCHARGE SUMMARY DATE OF SERVICE: 10/28/2017 DATE OF ADMISSION: 10/24/2017 DATE OF DISCHARGE: 10/28/2017 ADMISSION AND DISCHARGE DIAGNOSIS: 1. Major depression, chronic and recurrent with acute exacerbation. 2. Rule out bipolar affective disorder. 3. Cannabis dependence and acute marijuana withdrawal. 4. Rule out alcohol dependence, in remission. 5. 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 6. Hypertension. 7. Hyperlipidemia. HISTORY OF PRESENT ILLNESS: The patient is a 42-year-old male. He presented to the emergency room with depression, anger and anxiety. He says he was feeling anxiety that he gets when he becomes manic. He has a long history of psychiatric issues. He has had 4 previous psychiatric admissions. He has ongoing use of marijuana. There were significant family issues including that 2 children were removed from the home by CPS. My understanding is that he and his significant other recently may have lost custody, that seemed to be the main issue he was focused on as he discussed this issue quite a bit during the interview. He kept making references to having lost his children, ""for no reason." He is followed by Ms Draper at [facility]. He had a followup appointment with Ms. Draper in June from his June 01 admission. He had another appointment in July and at that time, he was started on Zyprexa 5 mg a day. After that he was not seen at [facility]. My understanding is that he may have just missed appointments, though he said that appointments were canceled. It is unclear to what extent he has been taking medications consistently over the last few months. He was not able to provide much information in regards to ongoing issues of his function or daily life. He was admitted for further evaluation. PAST MEDICAL HISTORY AND PHYSICAL EXAM: As per Dr. Collazo. MENTAL STATUS EXAM: Patient gave fair eye contact. He was restless. He answered questions with brief responses. He had a somewhat angry manner. His affect was intense. Mood dysphoric. He was moderately distressed. He seemed to be oriented and alert. He did make an effort to answer formal cognitive questions. COURSE OF HOSPITALIZATION: Patient was admitted for a comprehensive medical psychiatric and psychosocial evaluation. We made efforts to engage the patient in individual group and therapeutic activities. On admission, I continued his previous psychotropic medications including Haldol 10 mg a day and Depakote ER 1000 mg a day. I increased his Zyprexa to 10 mg twice a day. Early on in his hospitalization, the patient was fairly withdrawn. He continued to have an angry manner and again made frequent references to children being taken from the home. It is noteworthy that a [facility] note in early May indicated that there was CPS action at that time and that he had been making threats to staff at [facility]. It is not clear whether or not there was a final CPS decision that sometime during the fall or more recently. Patient was able to sleep fairly well at night as his hospitalization progressed. He had a gradual improvement overall. He had a calmer manner. He was cooperative. He did not attend any groups. He generally would walk slowly around the unit. He did not really interact with others. When asked how he was feeling, how his mood was and such, he generally reported all was okay. He seemed to have reduction in anxiety. He was in agreement with the discharge plans. CONDITION AT DISCHARGE: Patient was stable. Mood improved. He voiced no significant problems with anxiety or anger. He tolerated his medications. RECOMMENDATIONS AND FOLLOWUP: Patient is discharged to home. DISCHARGE MEDICATIONS: 1. Haldol 10 mg a day. 2. Depakote ER 1000 mg a day. 3. Zyprexa 10 mg twice a day. 4. Catapres 0.1 mg in the morning, 0.2 mg in the evening. 5. Baclofen 20 mg 3 times a day as needed. 6. Lipitor 20 mg a day. 7. Ventolin inhaler as p.r.n. Patient will be set up for followup appointments with [facility] and will be seen by Ms. Draper for medication followup. MMMONSTERL / KAREEMN: [id number] /
--- NOTE | 2017-12-13 17:20 | PN ---
PROGRESS NOTE DATE OF SERVICE: 12/13/2017. INTERVAL HISTORY: This 55-year-old gentleman who was admitted with infected left knee arthroplasty , underwent a stage II revision. The patient is slated to go to the [facility] at this time. No chest pain. No palpitation. The pain is being managed by Percocet 1-2 tablets q.4h p.r.n.no chest pain. No palpitations. No fever. EXAM: Alert and oriented times three. Pulse 90, blood pressure 130/74, respirations 14 , temperature 98 degrees, pulse ox 99% on room air. HEENT: Conjunctivae normal. Neck: No jugular venous distention. Cardiovascular: S1, S2. Respiratory: Breath sounds diminished in the bases. No rhonchi. No crackles. Abdomen is soft, nontender. Legs: Status post surgery. Central nervous system: No focal deficits. LABS: WBC 8.8, hemoglobin is 9.2, sodium 135. ASSESSMENT: 1. 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 2. History of essential hypertension. 3. History of chronic hepatitis C. 4. History of degenerative joint disease. 5. History of anxiety, depression, not otherwise specified. 6. History of anemia as expected. 7. Hyponatremia. 8. Obesity. 9. Chronic pain syndrome. 10.History of anxiety, depression. RECOMMENDATIONS AND DISCUSSION: Recommend to continue current medications, symptomatic treatment. Otherwise, I would recommend Percocet 1-2 tablets q.6h p.r.n. to limit daily amount of Tylenol. Otherwise continue the rest of the medications per orthopedic surgery. Further recommendations to follow. MMODL / IJN: [id number] / MTDD
== END 2017-10-28 11:55 | disposition home or self-care (01) | DRG 885 ==
LOC: EC 12:27 → 3MHU 16:24
PROVIDERS: ADMIT Psychiatry & Neurology Psychiatry; ATTEND Psychiatry & Neurology Psychiatry
DX: F33.9 Major depressive disorder, recurrent, unspecified (principal); R45.851 Suicidal ideations; F70 Mild intellectual disabilities; E78.5 Hyperlipidemia, unspecified; F31.9 Bipolar disorder, unspecified; F12.288 Cannabis dependence with other cannabis-induced disorder; F17.200 Nicotine dependence, unspecified, uncomplicated; F41.0 Panic disorder [episodic paroxysmal anxiety]; I10 Essential (primary) hypertension; F10.21 Alcohol dependence, in remission; Z79.899 Other long term (current) drug therapy; Z88.5 Allergy status to narcotic agent; Z91.83 Wandering in diseases classified elsewhere
CPT/HCPCS: 36415; 74018; 80053; 80061; 80306; 81003; 82150; 82550; 82553; 83036; 83690; 84443; 84484; 85025; 85610; 85730; 93005; 96361; 96372; 96374; 96375; 99285

== ENCOUNTER 2018-01-04 11:33 | Emergency (ER) | payer MEDICARE, OTHER ==
[2018-01-04] MEDS ORDERED: SODIUM CHLORIDE 0.9% 500 ML IV STA (11:59)
[2018-01-04 12:43] LABS: Basophils % (A) 0 %; Eosinophils # (A) 0.2 k/uL (0-0.7); Eosinophils % (A) 3 %; HCT 42.7 % (39.0-53.0); HGB 15.1 gm/dL (13.0-17.5); Lymphocytes % (A) 24 %; MCH 30.5 pg (25.0-35.0); MCHC 35.4 g/dL (31.0-37.0); MCV 86.1 fL (80.0-100.0); Mean Platelet Volume 7.5; Monocytes # (A) 0.4 k/uL (0-1.0); Monocytes % (A) 5 %; Neutrophils # (A) 5.8 k/uL (1.3-7.7); Neutrophils % (A) 67 %; Platelet Count 281 k/uL (150-450); RBC 4.96 m/uL (4.30-5.90); RDW 12.8 % (11.5-15.5); WBC 8.6 k/uL (3.8-10.6)
--- NOTE | 2018-01-04 12:57 | ED ---
General Adult HPI - General Chief complaint: Weakness Stated complaint: Abd Pain Time Seen by Provider: 01/04/18 11:52 Source: patient, family, RN notes reviewed, old records reviewed Mode of arrival: ambulatory Limitations: no limitations - History of Present Illness Initial comments: Chief complaint and history of present illness a 42-year-old male with a complaint of not feeling well, describes as weak cold off-and-on feeling hot. Ongoing for 4 days. Mild epigastric discomfort but no nausea no vomiting but slight decrease in appetite. Patient reports not taking his Zyprexa for over 7 days. Patient has similar complaints 2 months ago was admitted. That time he stopped taking his bipolar medications. He is denying being depressed or suicidal. - Related Data Home Medications Medication Instructions Recorded Confirmed Albuterol Inhaler [Ventolin Hfa 2 puff INHALATION RT-QID PRN 02/21/17 01/04/18 Inhaler] Ibuprofen [Motrin] 800 mg PO TID PRN 02/21/17 01/04/18 cloNIDine HCL [Catapres] 0.1 mg PO DAILY 02/21/17 01/04/18 Baclofen [Lioresal] 20 mg PO TID PRN 01/04/18 01/04/18 Divalproex ER [Depakote ER] 500 mg PO HS 01/04/18 01/04/18 Divalproex Sodium [Depakote ER] 250 mg PO HS 01/04/18 01/04/18 OLANZapine [ZyPREXA] 10 mg PO BID 01/04/18 01/04/18 cloNIDine HCL [Catapres] 0.2 mg PO HS 01/04/18 01/04/18 Previous Rx's Medication Instructions Recorded Atorvastatin [Lipitor] 20 mg PO HS #14 tab 01/24/16 FLUoxetine HCL [PROzac] 40 mg PO DAILY #60 cap 10/28/17 Haloperidol [Haldol] 10 mg PO HS #30 tab 10/28/17 Allergies Allergy/AdvReac Type Severity Reaction Status Date / Time tramadol Allergy Severe Itching Verified 01/04/18 11:49 Review of Systems ROS Statement: Those systems with pertinent positive or pertinent negative responses have been documented in the HPI. Review of systems. No headache or visual acuity changes denies sore throat. Denies chest pain or shortness of breath. He has mild mid abdominal discomfort. Slight decrease in appetite. No nausea no vomiting no change in bowel habits or urination. No rashes no flank pain. Denies any fevers. All systems are reviewed. Past medical problems bipolar disorder. Hyperlipidemia and hypertension. States he missed his blood pressure pills today. The patient's surgeries are none. Family history denies any cancers. The patient has ALLERGIES to tramadol which makes him itch. He smokes one half pack per day. Strongly encouraged to stop. More than 3 minutes was spent trying to convince him to stop smoking. Denies alcohol use. ROS Other: All systems not noted in ROS Statement are negative. Past Medical History Past Medical History: Hyperlipidemia, Hypertension History of Any Multi-Drug Resistant Organisms: None Reported Past Surgical History: No Surgical Hx Reported Past Anesthesia/Blood Transfusion Reactions: No Reported Reaction Past Psychological History: Anxiety, Bipolar, Depression, Panic Disorder Smoking Status: Current every day smoker Past Alcohol Use History: Occasional Past Drug Use History: Marijuana - Past Family History Mother Family Medical History: Diabetes Mellitus General Exam - General Exam Comments Initial Comments: General: The patient is awake and alert, here with a generalized complaint of feeling weak and not well. Mild decrease in appetite. Denying fever or significant pain. Mild supraumbilical discomfort. Vital signs temperature 99.0 pulse 62 respiratory rate 20 pulse ox 97% room air blood pressure 178/84 Eye: Pupils are equal, round and reactive to light, extra-ocular movements are intact ; there is normal conjunctiva bilaterally. No signs of icterus. Ears, nose, mouth and throat: There are moist mucous membranes and no oral lesions. Neck: The neck is supple, there is no tenderness, no anterior cervical lymphadenopathy. Cardiovascular: There is a regular rate and rhythm. No murmur, rub or gallop is appreciated. Respiratory: Lungs are clear to auscultation, respirations are non-labored, breath sounds are equal. No wheezes, stridor, rales, or rhonchi. Gastrointestinal: Soft, non-distended, non-tender abdomen without masses or organomegaly noted. There is no rebound or guarding present. No CVA tenderness. Bowel sounds are unremarkable. Denying nausea vomiting or diarrhea. Complains of mild discomfort. No pain with deep palpation. Back: There is no tenderness to palpation in the midline. There is no obvious deformity. No rashes noted. Musculoskeletal: Normal ROM, no tenderness, There is no pedal edema. There is no calf tenderness or swelling. Sensation intact. Pulses equal bilaterally 2+. Neurological: No neuro deficits Skin: Skin is warm and dry and no rashes or lesions are noted. Psychiatric: Cooperative, history of bipolar disorder. But denying depression or suicidal thoughts. Does not want with think he needs a psychiatric evaluation. Limitations: no limitations Course Vital Signs 01/04/18 01/04/18 11:37 13:58 Temperature 99 F Pulse Rate 62 59 L Respiratory 20 16 Rate Blood Pressure 178/84 149/68 O2 Sat by Pulse 97 94 L Oximetry Medical Decision Making - Medical Decision Making Medical decision making; is a 42-year-old male here with a complaint of feeling weak sometimes hot sometimes cold. Ongoing for days. Labs show white count of 8.6 hemoglobin 15 hematocrit of 42. Potassium 4.9 with a BUN of 11, creatinine 0.86 to GFR greater than 60. Glucose 100. Urine clean no signs of infection. Influenza AB reported to be negative. Chest x-ray is done and reviewed by radiologist his impression is there is no focal airspace opacity, pleural effusion, or pneumothorax seen. Cardiac silhouette size is within normal limits. Patient is rotated, there may be spinal curvature. The osseous structures are intact. Impression no acute cardiopulmonary process. Stable exam compared to prior 2010. As read by Dr. Chris Patient was given which should've been his morning dose for antihypertension, Catapres 0.2 mg by mouth in emergency room. Advised to lemon picker his prescription of Zyprexa which is waiting for him at the pharmacy. Advised follow-up with his family doctor. Increase his fluids take Tylenol for aches and pains. Return emergency room as needed - Lab Data Result diagrams: 01/04/18 12:20 01/04/18 12:20 Lab Results 01/04/18 01/04/18 01/04/18 Range/Units 12:20 12:20 12:20 WBC 8.6 (3.8-10.6) k/uL RBC 4.96 (4.30-5.90) m/uL Hgb 15.1 (13.0-17.5) gm/dL Hct 42.7 (39.0-53.0) % MCV 86.1 (80.0-100.0) fL MCH 30.5 (25.0-35.0) pg MCHC 35.4 (31.0-37.0) g/dL RDW 12.8 (11.5-15.5) % Plt Count 281 (150-450) k/uL Neutrophils % 67 % Lymphocytes % 24 % Monocytes % 5 % Eosinophils % 3 % Basophils % 0 % Neutrophils # 5.8 (1.3-7.7) k/uL Lymphocytes # 2.0 (1.0-4.8) k/uL Monocytes # 0.4 (0-1.0) k/uL Eosinophils # 0.2 (0-0.7) k/uL Basophils # 0.0 (0-0.2) k/uL Sodium 137 (137-145) mmol/L Potassium 4.9 (3.5-5.1) mmol/L Chloride 98 (98-107) mmol/L Carbon Dioxide 23 (22-30) mmol/L Anion Gap 16 mmol/L BUN 11 (9-20) mg/dL Creatinine 0.86 (0.66-1.25) mg/dL Est GFR (CKD-EPI)AfAm >90 (>60 ml/min/1.73 sqM) Est GFR (CKD-EPI)NonAf >90 (>60 ml/min/1.73 sqM) Glucose 100 H (74-99) mg/dL Calcium 10.6 H (8.4-10.2) mg/dL Magnesium 1.9 (1.6-2.3) mg/dL Total Bilirubin 0.9 (0.2-1.3) mg/dL AST 22 (17-59) U/L ALT 16 L (21-72) U/L Alkaline Phosphatase 87 (38-126) U/L Troponin I <0.012 (0.000-0.034) ng/mL Total Protein 8.6 H (6.3-8.2) g/dL Albumin 5.1 H (3.5-5.0) g/dL Urine Color Urine Appearance (Clear) Urine pH (5.0-8.0) Ur Specific [place] (1.001-1.035) Urine Protein (Negative) Urine Glucose (UA) (Negative) Urine Ketones (Negative) Urine Blood (Negative) Urine Nitrite (Negative) Urine Bilirubin (Negative) Urine Urobilinogen (<2.0) mg/dL Ur Leukocyte Esterase (Negative) Urine Opiates Screen (NotDetected) Ur Oxycodone Screen (NotDetected) Urine Methadone Screen (NotDetected) Ur Propoxyphene Screen (NotDetected) Ur Barbiturates Screen (NotDetected) U Tricyclic Antidepress (NotDetected) Ur Phencyclidine Scrn (NotDetected) Ur Amphetamines Screen (NotDetected) U Methamphetamines Scrn (NotDetected) U Benzodiazepines Scrn (NotDetected) Urine Cocaine Screen (NotDetected) U Marijuana (THC) Screen (NotDetected) 01/04/18 01/04/18 Range/Units 13:21 13:21 WBC (3.8-10.6) k/uL RBC (4.30-5.90) m/uL Hgb (13.0-17.5) gm/dL Hct (39.0-53.0) % MCV (80.0-100.0) fL MCH (25.0-35.0) pg MCHC (31.0-37.0) g/dL RDW (11.5-15.5) % Plt Count (150-450) k/uL Neutrophils % % Lymphocytes % % Monocytes % % Eosinophils % % Basophils % % Neutrophils # (1.3-7.7) k/uL Lymphocytes # (1.0-4.8) k/uL Monocytes # (0-1.0) k/uL Eosinophils # (0-0.7) k/uL Basophils # (0-0.2) k/uL Sodium (137-145) mmol/L Potassium (3.5-5.1) mmol/L Chloride (98-107) mmol/L Carbon Dioxide (22-30) mmol/L Anion Gap mmol/L BUN (9-20) mg/dL Creatinine (0.66-1.25) mg/dL Est GFR (CKD-EPI)AfAm (>60 ml/min/1.73 sqM) Est GFR (CKD-EPI)NonAf (>60 ml/min/1.73 sqM) Glucose (74-99) mg/dL Calcium (8.4-10.2) mg/dL Magnesium (1.6-2.3) mg/dL Total Bilirubin (0.2-1.3) mg/dL AST (17-59) U/L ALT (21-72) U/L Alkaline Phosphatase (38-126) U/L Troponin I (0.000-0.034) ng/mL Total Protein (6.3-8.2) g/dL Albumin (3.5-5.0) g/dL Urine Color Yellow Urine Appearance Clear (Clear) Urine pH 6.5 (5.0-8.0) Ur Specific [place] 1.010 (1.001-1.035) Urine Protein Negative (Negative) Urine Glucose (UA) Negative (Negative) Urine Ketones 1+ H (Negative) Urine Blood Negative (Negative) Urine Nitrite Negative (Negative) Urine Bilirubin Negative (Negative) Urine Urobilinogen 3.0 (<2.0) mg/dL Ur Leukocyte Esterase Negative (Negative) Urine Opiates Screen Not Detected (NotDetected) Ur Oxycodone Screen Not Detected (NotDetected) Urine Methadone Screen Not Detected (NotDetected) Ur Propoxyphene Screen Not Detected (NotDetected) Ur Barbiturates Screen Not Detected (NotDetected) U Tricyclic Antidepress Not Detected (NotDetected) Ur Phencyclidine Scrn Not Detected (NotDetected) Ur Amphetamines Screen Not Detected (NotDetected) U Methamphetamines Scrn Not Detected (NotDetected) U Benzodiazepines Scrn Not Detected (NotDetected) Urine Cocaine Screen Not Detected (NotDetected) U Marijuana (THC) Screen Detected H (NotDetected) Disposition Clinical Impression: Hypertension, Fatigue Disposition: HOME SELF-CARE Condition: Fair Instructions: Hypertension (ED), Fatigue (ED), Weakness (ED), Depression (ED) Additional Instructions: Increase fluids, take medications as directed by her family doctor. Return emergency room as needed. Referrals: Jorge Lopez MD [Primary Care Provider] - 1-2 days Time of Disposition: 15:02
[2018-01-04 13:07] LABS: ALT 16 U/L (21-72); AST 22 U/L (17-59); Albumin 5.1 g/dL (3.5-5.0); Alkaline Phosphatase 87 U/L (38-126); Anion Gap 16 mmol/L; Blood Urea Nitrogen 11 mg/dL (9-20); Calcium 10.6 mg/dL (8.4-10.2); Carbon Dioxide 23 mmol/L (22-30); Chloride 98 mmol/L (98-107); Glucose 100 mg/dL (74-99); Magnesium 1.9 mg/dL (1.6-2.3); Potassium 4.9 mmol/L (3.5-5.1); Sodium 137 mmol/L (137-145); Total Bilirubin 0.9 mg/dL (0.2-1.3); Total Protein 8.6 g/dL (6.3-8.2)
--- NOTE | 2018-01-04 13:26 | XR ---
EXAMINATION TYPE: XR chest 2V DATE OF EXAM: 01/04/2018 COMPARISON: Prior chest x-ray 10/28/2016 and 03/10/2011 HISTORY: Weakness, cough and congestion TECHNIQUE: Frontal and lateral views of the chest are obtained. FINDINGS: There is no focal air space opacity, pleural effusion, or pneumothorax seen. The cardiac silhouette size is within normal limits. Patient is rotated, there may be spinal curvature. The osse ous structures are intact. IMPRESSION: No acute cardiopulmonary process. Stable exam compared to prior 2010.
[2018-01-04 13:36] LABS: Appearance,Urine Clear (Clear); Bilirubin,Urine Negative (Negative); Blood,Urine Negative (Negative); Color,Urine Yellow; Glucose,Urine (UA) Negative (Negative); Ketones,Urine 1+ (Negative); Leukocyte Esterase,Urine Negative (Negative); Nitrite,Urine Negative (Negative); PH, Urine 6.5 (5.0-8.0); Protein,Urine Negative (Negative)
[2018-01-04 13:50] LABS: Amphetamine Screen,Urine Not Detected (NotDetected); Barbiturate Screen,Urine Not Detected (NotDetected); Benzodiazepines Screen,Urine Not Detected (NotDetected); Cocaine Screen,Urine Not Detected (NotDetected); Methadone Screen, Urine Not Detected (NotDetected); Opiate Screen,Urine Not Detected (NotDetected); Oxycodone Screen, Urine Not Detected (NotDetected); Phencyclidine Screen,Urine Not Detected (NotDetected); Tricyclic Antidepressant,Urine Not Detected (NotDetected); Urn Cannabinoid Scrn Detected (NotDetected)
[2018-01-04 13:59] VITALS: RESP 16
[2018-01-04] MEDS ORDERED: cloNIDine HCL 0.2 MG TAB PO STA (15:00)
[2018-01-04 15:06] VITALS: BP 142/70; PULSE 63; TEMP 98.9
== END 2018-01-04 15:11 | disposition home or self-care (01) ==
LOC: EC 11:33
DX: R53.83 Other fatigue (principal); I10 Essential (primary) hypertension; R10.13 Epigastric pain; R63.0 Anorexia; F31.9 Bipolar disorder, unspecified; F41.0 Panic disorder [episodic paroxysmal anxiety]; F17.200 Nicotine dependence, unspecified, uncomplicated; Z79.899 Other long term (current) drug therapy; Z88.6 Allergy status to analgesic agent
CPT/HCPCS: 36415; 71046; 80053; 80306; 81003; 83735; 84484; 85025; 87086; 87502; 99285

== ENCOUNTER 2018-11-20 16:06 | Emergency (ER) | payer MEDICARE, OTHER ==
[2018-11-20 16:20] VITALS: RESP 16; TEMP 98.3
[2018-11-20] MEDS ORDERED: FLUoxetine HCL 20 MG CAP PO STA (17:48)
--- NOTE | 2018-11-20 17:53 | ED ---
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 Patient initially told triage that he was experiencing flulike symptoms, however further history taking reveals that patient's primary reason for presentation is refill of zyprexa and prozac. Pt states that he missed an appointment approximately a month ago and has an appointment with Dr. Velasquez in 2 days. Pt reports that he has been out of his medications for approximately 2 weeks. Pt states that he has had some epigastric burning for approximately 2 weeks and some nausea, states that he has had this in the past and that it does not feel different. Pt denies any other complaints. Pt denies suicidal or homicidal ideation. Systemic: Pt denies fatigue, myalgia, fever/chills, rash. Pt denies weakness, night sweats, weight loss. Neuro: Pt denies headache, visual disturbances, syncope or pre-syncope. HEENT: Pt denies ocular discharge or irritation, otalgia, rhinorrhea, pharyngitis or notable lymphadenopathy. Cardiopulmonary: Pt denies chest pain, SOB, heart palpitations, dyspnea on exertion. Abdominal/GI: Pt denies abdominal pain. : Pt denies dysuria, burning w/ urination, frequency/urgency. Denies new onset urinary or bowel incontinence. MSK: Pt denies myalgia, loss of strength or function in extremities. Neuro: Pt denies new onset weakness, paresthesias. - Related Data Home Medications Medication Instructions Recorded Confirmed Albuterol Inhaler [Ventolin Hfa 2 puff INHALATION RT-QID PRN 02/21/17 01/04/18 Inhaler] Ibuprofen [Motrin] 800 mg PO TID PRN 02/21/17 01/04/18 cloNIDine HCL [Catapres] 0.1 mg PO DAILY 02/21/17 01/04/18 Baclofen [Lioresal] 20 mg PO TID PRN 01/04/18 01/04/18 Divalproex ER [Depakote ER] 500 mg PO HS 01/04/18 01/04/18 Divalproex Sodium [Depakote ER] 250 mg PO HS 01/04/18 01/04/18 OLANZapine [ZyPREXA] 10 mg PO BID 01/04/18 01/04/18 cloNIDine HCL [Catapres] 0.2 mg PO HS 01/04/18 01/04/18 Previous Rx's Medication Instructions Recorded Atorvastatin [Lipitor] 20 mg PO HS #14 tab 01/24/16 FLUoxetine HCL [PROzac] 40 mg PO DAILY #60 cap 10/28/17 Haloperidol [Haldol] 10 mg PO HS #30 tab 10/28/17 FLUoxetine HCL [PROzac] 40 mg PO DAILY 1 Days #1 cap 11/20/18 OLANZapine [ZyPREXA] 20 mg PO Q24HR 2 Days #2 tablet 11/20/18 Allergies Allergy/AdvReac Type Severity Reaction Status Date / Time tramadol Allergy Severe Itching Verified 11/20/18 16:20 Review of Systems ROS Statement: Those systems with pertinent positive or pertinent negative responses have been documented in the HPI. ROS Other: All systems not noted in ROS Statement are negative. Past Medical History Past Medical History: Hyperlipidemia, Hypertension History of Any Multi-Drug Resistant Organisms: None Reported Past Surgical History: No Surgical Hx Reported Past Anesthesia/Blood Transfusion Reactions: No Reported Reaction Past Psychological History: Anxiety, Bipolar, Depression, Panic Disorder Smoking Status: Current every day smoker Past Alcohol Use History: Occasional Past Drug Use History: Marijuana - Past Family History Mother Family Medical History: Diabetes Mellitus General Exam - General Exam Comments Initial Comments: Constitutional: NAD, AOX3, Pt has pleasant affect. HEENT: NC/AT, trachea midline, neck supple, no lymphadenopathy. Posterior pharynx non erythematous, without exudates. External ears appear normal, without discharge. Mucous membranes moist. Eyes PERRLA, EOM intact. There is no scleral icterus. No pallor noted. Cardiopulmonary: RRR, no murmurs, rubs or gallops, no JVD noted. Lungs CTAB in anterior and posterior terry. No peripheral edema. Abdominal exam: Abdomen soft and non-distended. Abdomen non-tender to palpation in all 4 quadrants. Bowel sounds active in LLQ. No hepatosplenomegaly. No ecchymosis Neuro: CN II-XII grossly intact. No nuchal rigidity. MSK: No posterior calf tenderness bilaterally, homans sign negative bilaterally. Posterior tibialis and radial pulse +2 bilaterally and equal. Sensation intact in upper and lower extremities. Full active ROM in upper and lower extremities, 5/5 stregnth. Limitations: no limitations Course Vital Signs 11/20/18 11/20/18 16:19 18:16 Temperature 98.3 F Pulse Rate 80 59 L Respiratory 16 16 Rate Blood Pressure 180/84 184/79 O2 Sat by Pulse 97 99 Oximetry Medical Decision Making - Medical Decision Making 43 y/o male pt presented today for medication refill of zyprexa and prozac for depression and bipolar disorder. Pt had secondary complaint of epigastric burning for approximately 2 weeks and some nausea, states that he has had this in the past and that it does not feel different. Offered patient workup for that complaint including blood work and imaging but patient declined. Pts pharmacy was contacted and confirmed dosing. Pt was administered prozac in ED, pt was rx zyprexa as he takes this 1hr before bed. Pt was rx 2 days of zyprexa and 1 day of prozac as he will take this tomorrow. Pt moderately hypertensive in ED, pt will take medication at home and monitor. Patient to follow up with Dr. Velasquez at scheduled appointment on 11/22. Pt to return to ED if new s/sx develop. Case discussed in depth with Dr. Larose. Pt denied any homicidal or suicidal ideation. Disposition Clinical Impression: Medication refill Disposition: HOME SELF-CARE Condition: Stable Instructions (If sedation given, give patient instructions): Medicine Refill ( ED) Additional Instructions: Patient to adhere to previously discussed treatment plan and will take medication(s) as directed. Patient to follow up with PCP in 1-2 days. Patient to return to ED if symptoms do not improve. Prescriptions: FLUoxetine HCL [PROzac] 40 mg PO DAILY 1 Days #1 cap OLANZapine [ZyPREXA] 20 mg PO Q24HR 2 Days #2 tablet Is patient prescribed a controlled substance at d/c from ED?: No Referrals: Jorge Lopez MD [Primary Care Provider] - 1-2 days Time of Disposition: 17:52
[2018-11-20] MEDS ORDERED: OLANZapine 10 MG TAB PO SCH (18:00)
[2018-11-20 18:17] VITALS: BP 184/79; PULSE 59
== END 2018-11-20 18:18 | disposition home or self-care (01) ==
LOC: EC 16:06
DX: Z76.0 Encounter for issue of repeat prescription (principal); I10 Essential (primary) hypertension; R11.0 Nausea; R19.8 Other specified symptoms and signs involving the digestive system and abdomen; F31.9 Bipolar disorder, unspecified; F17.200 Nicotine dependence, unspecified, uncomplicated; Z88.5 Allergy status to narcotic agent; Z79.899 Other long term (current) drug therapy; Z53.20 Procedure and treatment not carried out because of patient's decision for unspecified reasons
CPT/HCPCS: 99283

== ENCOUNTER → 2019-03-24 | Outpatient (CLI) | payer MEDICARE, OTHER ==
[2019-03-24 15:00] LABS: Basophils % (A) 0 %; Eosinophils # (A) 0.2 k/uL (0-0.7); Eosinophils % (A) 3 %; HCT 40.3 % (39.0-53.0); HGB 13.2 gm/dL (13.0-17.5); Lymphocytes # (A) 2.3 k/uL (1.0-4.8); Lymphocytes % (A) 36 %; MCH 29.9 pg (25.0-35.0); MCHC 32.9 g/dL (31.0-37.0); MCV 90.9 fL (80.0-100.0); Mean Platelet Volume 6.9; Monocytes # (A) 0.4 k/uL (0-1.0); Monocytes % (A) 6 %; Neutrophils # (A) 3.3 k/uL (1.3-7.7); Neutrophils % (A) 52 %; Platelet Count 296 k/uL (150-450); RBC 4.43 m/uL (4.30-5.90); RDW 13.3 % (11.5-15.5); WBC 6.3 k/uL (3.8-10.6)
[2019-03-24 18:06] LABS: African American GFR (CKD) 119.1 (60.0-200.0); Albumin 4.8 g/dL (3.80-4.90); Albumin/Globulin Ratio 2.4 (1.60-3.17); Anion Gap 4.1 mmol/L (4.00-12.00); BUN/Creat Ratio 6.67 Ratio (12.00-20.00); Calcium 9.9 mg/dL (8.7-10.3); Carbon Dioxide 25.9 mmol/L (21.6-31.8); Potassium 4.9 mmol/L (3.5-5.5); Total Bilirubin 0.3 mg/dL (0.2-1.2); Total Protein 6.8 g/dL (6.2-8.2)
[2019-03-24 18:07] LABS: Valproic Acid (Depakene) 37.5 ug/mL (50.0-100.0)
[2019-03-24 21:16] LABS: Hemoglobin A1C 5.7 % (4.0-6.0)
== END | disposition home or self-care (01) ==
LOC: LABWHC1 14:36
PROVIDERS: ATTEND Psychiatry & Neurology Psychiatry
DX: Z51.81 Encounter for therapeutic drug level monitoring (principal); Z79.899 Other long term (current) drug therapy; F31.5 Bipolar disorder, current episode depressed, severe, with psychotic features
CPT/HCPCS: 36415; 80053; 80164; 83036; 85025

== ENCOUNTER → 2019-03-25 | Outpatient (CLI) | payer MEDICARE, OTHER ==
[2019-03-25 16:05] LABS: LDL Cholesterol,Calculated 49.6 mg/dL (0.0-131.0); VLDL Calculation 37.4 mg/dL (5.00-40.00)
== END | disposition home or self-care (01) ==
LOC: LABWHC1 09:05
PROVIDERS: ATTEND Psychiatry & Neurology Psychiatry
DX: F31.5 Bipolar disorder, current episode depressed, severe, with psychotic features (principal); Z79.899 Other long term (current) drug therapy
CPT/HCPCS: 36415; 80061

== ENCOUNTER 2019-06-25 11:50 | Emergency (ER) | payer MEDICARE, OTHER ==
[2019-06-25 11:56] VITALS: BP 182/98; PULSE 61; RESP 18; TEMP 97.6
--- NOTE | 2019-06-25 12:03 | ED ---
Psych HPI - General Chief Complaint: Psychiatric Symptoms Stated Complaint: EPS eval Time Seen by Provider: 06/25/19 11:57 Source: patient, police Mode of arrival: ambulatory - History of Present Illness Initial Comments: 43-year-old male history of bipolar and hypertension presents today for chief complaint of "brought in by police because his girlfriend called the police on him", patient states that he has history of bipolar and that his current was seeing his medications of Zyprexa. He states the prescription was not him and called the police on him and brought him to emergency department for psychiatric evaluation. Patient denies any suicidal or homicidal ideation. Patient states he is angry to be here however he is cooperative. Patient has no other complaints. Patient states he did not take his blood pressure medication today of clonidine. Patient states that he feels agitated detail and is requesting Ativan. Patient denies any hallucinations. Patient has no complaints currently. Remaining review of system negative. Upon arrival patient is in no acute distress. - Related Data Home Medications Medication Instructions Recorded Confirmed Ibuprofen [Motrin] 800 mg PO TID PRN 02/21/17 06/25/19 cloNIDine HCL [Catapres] 0.1 mg PO DAILY 02/21/17 06/25/19 Divalproex ER [Depakote ER] 1,000 mg PO HS 01/04/18 06/25/19 cloNIDine HCL [Catapres] 0.2 mg PO HS 01/04/18 06/25/19 OLANZapine [ZyPREXA] 20 mg PO HS 06/25/19 06/25/19 Sertraline [Zoloft] 50 mg PO DAILY 06/25/19 06/25/19 Previous Rx's Medication Instructions Recorded Atorvastatin [Lipitor] 20 mg PO HS #14 tab 01/24/16 OLANZapine [ZyPREXA] 20 mg PO HS 7 Days #7 tablet 06/25/19 Allergies Allergy/AdvReac Type Severity Reaction Status Date / Time tramadol Allergy Severe Itching Verified 06/25/19 12:06 Review of Systems ROS Statement: Those systems with pertinent positive or pertinent negative responses have been documented in the HPI. ROS Other: All systems not noted in ROS Statement are negative. Past Medical History Past Medical History: Hyperlipidemia, Hypertension History of Any Multi-Drug Resistant Organisms: None Reported Past Surgical History: No Surgical Hx Reported Past Anesthesia/Blood Transfusion Reactions: No Reported Reaction Past Psychological History: Anxiety, Bipolar, Depression, Panic Disorder Smoking Status: Current every day smoker Past Alcohol Use History: Occasional Past Drug Use History: Marijuana - Past Family History Mother Family Medical History: Diabetes Mellitus General Exam - General Exam Comments Initial Comments: General: The patient is awake and alert, in no distress, and does not appear acutely ill. Eye: +3 mm pupils are equal, round and reactive to light, extra-ocular movements are intact. No nystagmus. There is normal conjunctiva bilaterally. No signs of icterus. Ears, nose, mouth and throat: There are moist mucous membranes and no oral lesions. Neck: The neck is supple, there is no tenderness or JVD. Cardiovascular: There is a regular rate and rhythm. No murmur, rub or gallop is appreciated. Respiratory: Lungs are clear to auscultation, respirations are non-labored, breath sounds are equal. No wheezes, stridor, rales, or rhonchi. Gastrointestinal: Soft, non-distended, non-tender abdomen without masses or organomegaly noted. There is no rebound or guarding present. Musculoskeletal: Normal ROM, no tenderness. Strength 5/5. Sensation intact. Radial pulses equal bilaterally 2+. Neurological: A&O x 3. CN II-XII intact grossly, There are no obvious motor or sensory deficits. Coordination appears grossly intact. Speech is normal. Skin: Skin is warm and dry and no rashes or lesions are noted. Psychiatric: Cooperative, slightly aggitated but easily calmed. Limitations: no limitations Course Vital Signs 06/25/19 11:53 Temperature 97.6 F Pulse Rate 61 Respiratory 18 Rate Blood Pressure 182/98 O2 Sat by Pulse 98 Oximetry Medical Decision Making - Medical Decision Making 43-year-old male presented for psychiatric evaluation. Patient states that he was brought in for not taking his medications patient states he does not have his Zyprexa prescription for bipolar. Patient has no suicidal or homicidal ideations. Patient is medical clear for repeat evaluation. EPS spoke with on-c all psychiatrist who recommended discharge home with a one-week prescription for Zyprexa and [facility]. Patient is agreeable with this care plan patient was discharged appearing well at this time and do not feel patient is a wrist to Society her himself. - Lab Data Lab Results 06/25/19 Range/Units 12:12 Urine Color Light Yellow Urine Appearance Clear (Clear) Urine pH 7.0 (5.0-8.0) Ur Specific [place] 1.003 (1.001-1.035) Urine Protein Negative (Negative) Urine Glucose (UA) Negative (Negative) Urine Ketones Negative (Negative) Urine Blood Negative (Negative) Urine Nitrite Negative (Negative) Urine Bilirubin Negative (Negative) Urine Urobilinogen <2.0 (<2.0) mg/dL Ur Leukocyte Esterase Negative (Negative) Urine Opiates Screen Not Detected (NotDetected) Ur Oxycodone Screen Not Detected (NotDetected) Urine Methadone Screen Not Detected (NotDetected) Ur Propoxyphene Screen Not Detected (NotDetected) Ur Barbiturates Screen Not Detected (NotDetected) U Tricyclic Antidepress Not Detected (NotDetected) Ur Phencyclidine Scrn Not Detected (NotDetected) Ur Amphetamines Screen Not Detected (NotDetected) U Methamphetamines Scrn Not Detected (NotDetected) U Benzodiazepines Scrn Not Detected (NotDetected) Urine Cocaine Screen Not Detected (NotDetected) U Marijuana (THC) Screen Detected H (NotDetected) Disposition Clinical Impression: Medication refill, Encounter for psychological evaluation Disposition: HOME SELF-CARE Condition: Good Instructions (If sedation given, give patient instructions): Medicine Refill (ED) Additional Instructions: Please use medication as discussed. Please follow-up with family doctor in the next 2 days, and [facility] as scheduled. Please return to emergency room if the symptoms increase or worsen or for any other concerns. Prescriptions: OLANZapine [ZyPREXA] 20 mg PO HS 7 Days #7 tablet Is patient prescribed a controlled substance at d/c from ED?: No Referrals: Jorge Lopez MD [Primary Care Provider] - 1-2 days Time of Disposition: 13:48
[2019-06-25] MEDS ORDERED: cefTRIAXone 250 MG VIAL IM STA (12:18)
[2019-06-25] MEDS ORDERED: AZITHROMYCIN 500 MG TAB PO STA (12:18)
[2019-06-25] MEDS ORDERED: LORazepam 2 MG/ML INJ IM STA (12:18)
[2019-06-25 12:22] LABS: Appearance,Urine Clear (Clear); Bilirubin,Urine Negative (Negative); Blood,Urine Negative (Negative); Color,Urine Light Yellow; Glucose,Urine (UA) Negative (Negative); Ketones,Urine Negative (Negative); Leukocyte Esterase,Urine Negative (Negative); Nitrite,Urine Negative (Negative); Protein,Urine Negative (Negative); Specific Gravity,Urine 1.003 (1.001-1.035); Urobilinogen,Urine <2.0 mg/dL (<2.0)
[2019-06-25 12:32] LABS: Amphetamine Screen,Urine Not Detected (NotDetected); Barbiturate Screen,Urine Not Detected (NotDetected); Benzodiazepines Screen,Urine Not Detected (NotDetected); Cocaine Screen,Urine Not Detected (NotDetected); Methadone Screen, Urine Not Detected (NotDetected); Opiate Screen,Urine Not Detected (NotDetected); Oxycodone Screen, Urine Not Detected (NotDetected); Phencyclidine Screen,Urine Not Detected (NotDetected); Tricyclic Antidepressant,Urine Not Detected (NotDetected); Urn Cannabinoid Scrn Detected (NotDetected)
== END 2019-06-25 14:15 | disposition home or self-care (01) ==
LOC: EC 11:50
DX: Z04.6 Encounter for general psychiatric examination, requested by authority (principal); Z76.0 Encounter for issue of repeat prescription; F41.9 Anxiety disorder, unspecified; F41.0 Panic disorder [episodic paroxysmal anxiety]; F31.9 Bipolar disorder, unspecified; I10 Essential (primary) hypertension; F17.200 Nicotine dependence, unspecified, uncomplicated; Z79.899 Other long term (current) drug therapy; Z88.6 Allergy status to analgesic agent
CPT/HCPCS: 82075; 81003; 80306; 99284; 96372 ×2; J2060; J0696

== ENCOUNTER 2020-04-29 10:22 | Inpatient (IN) | payer MEDICARE, MEDICAID ==
--- NOTE | 2020-04-29 11:25 | ED ---
Psych HPI - General Chief Complaint: Psychiatric Symptoms Stated Complaint: Mental Health Time Seen by Provider: 04/29/20 10:36 Source: patient Mode of arrival: ambulatory - History of Present Illness Initial Comments: Patient is a 44-year-old male presenting to the emergency department for psychiatric evaluation. Patient states he is on a number of psychiatric medications and feels like they're not working. He states he is having some suicidal thoughts today, no plan. He denies any homicidal thoughts although he says he is really upset with his girlfriend. Patient states he is not allowed to have contact with her but she allows him to still come over, sometimes she called the service superintendent on him. He admits to being a smoker, smoking marijuana, no other drug use. He denies taking alcohol today. He denies any pain today, denies any fever or chills. He has no further complaints at this time. Upon arrival to the ER, his vitals are stable. - Related Data Home Medications Medication Instructions Recorded Confirmed Ibuprofen [Motrin] 800 mg PO TID PRN 02/21/17 04/29/20 cloNIDine HCL [Catapres] 0.1 mg PO DAILY 02/21/17 04/29/20 cloNIDine HCL [Catapres] 0.2 mg PO HS 01/04/18 04/29/20 Sertraline [Zoloft] 50 mg PO DAILY 06/25/19 04/29/20 Haloperidol [Haldol] 10 mg PO DAILY 04/29/20 04/29/20 OLANZapine [ZyPREXA] 10 mg PO HS 04/29/20 04/29/20 tiZANidine HCL [Zanaflex] 4 mg PO TID 04/29/20 04/29/20 traZODone HCL 200 mg PO HS 04/29/20 04/29/20 Previous Rx's Medication Instructions Recorded Atorvastatin [Lipitor] 20 mg PO HS #14 tab 01/24/16 Allergies Allergy/AdvReac Type Severity Reaction Status Date / Time tramadol Allergy Severe Itching Verified 04/29/20 10:33 Review of Systems ROS Statement: Those systems with pertinent positive or pertinent negative responses have been documented in the HPI. ROS Other: All systems not noted in ROS Statement are negative. Past Medical History Past Medical History: Hyperlipidemia, Hypertension History of Any Multi-Drug Resistant Organisms: None Reported Past Surgical History: No Surgical Hx Reported Past Anesthesia/Blood Transfusion Reactions: No Reported Reaction Past Psychological History: Anxiety, Bipolar, Depression, Panic Disorder Smoking Status: Current every day smoker Past Alcohol Use History: Occasional Past Drug Use History: Marijuana - Past Family History Mother Family Medical History: Diabetes Mellitus General Exam - General Exam Comments Initial Comments: GENERAL: Patient is well-developed and well-nourished. Patient is nontoxic and in no acute distress. HEAD: Atraumatic, normocephalic. EYES: Pupils equal round and reactive to light, extraocular movements intact, sclera anicteric, conjunctiva are normal. Eyelids were unremarkable. ENT: TMs normal, nares patent, oropharynx clear without exudates. Moist mucous membranes. NECK: Normal range of motion, supple without lymphadenopathy or JVD. LUNGS: Unlabored respirations. Breath sounds clear to auscultation bilaterally and equal. No wheezes rales or rhonchi. HEART: Regular rate and rhythm without murmurs, rubs or gallops. ABDOMEN: Soft, nontender, normoactive bowel sounds. No guarding, no rebound. No masses appreciated. : Deferred MUSCULOSKELETAL: Normal extremities with adequate strength and normal range of motion, no pitting or edema. No clubbing or cyanosis. NEUROLOGICAL: Patient is alert and oriented x 3. Motor and sensory are also intact. Cranial nerves II through XII grossly intact. Normal speech, normal gait. Symmetrical smile. PSYCH: Normal mood, normal affect. SKIN: Warm, Dry, normal turgor, no rashes or lesions noted. Limitations: no limitations Course Vital Signs 04/29/20 10:28 Temperature 98.2 F Pulse Rate 72 Respiratory 18 Rate Blood Pressure 166/77 O2 Sat by Pulse 97 Oximetry Medical Decision Making - Medical Decision Making Patient is a 44-year-old male here for psychiatric evaluation. He admits to suicidal deviations, no plan,homicidal thoughts. Vitals are stable, exam is normal. Patient was evaluated by EPS. Patient will be admitted, he did sign himself in. - Lab Data Lab Results 04/29/20 Range/Units 10:58 Urine Opiates Screen Not Detected (NotDetected) Ur Oxycodone Screen Not Detected (NotDetected) Urine Methadone Screen Not Detected (NotDetected) Ur Propoxyphene Screen Not Detected (NotDetected) Ur Barbiturates Screen Not Detected (NotDetected) U Tricyclic Antidepress Not Detected (NotDetected) Ur Phencyclidine Scrn Not Detected (NotDetected) Ur Amphetamines Screen Not Detected (NotDetected) U Methamphetamines Scrn Not Detected (NotDetected) U Benzodiazepines Scrn Not Detected (NotDetected) Urine Cocaine Screen Not Detected (NotDetected) U Marijuana (THC) Screen Detected H (NotDetected) Disposition Clinical Impression: Suicidal ideation, Depression Disposition: TRANSFER TO PSYCH HOSP/UNIT Condition: Stable Is patient prescribed a controlled substance at d/c from ED?: No Referrals: Jorge Lopez MD [Primary Care Provider] - 1-2 days Decision Date: 04/29/20 Decision Time: 14:23
[2020-04-29 11:28] LABS: Amphetamine Screen,Urine Not Detected (NotDetected); Barbiturate Screen,Urine Not Detected (NotDetected); Benzodiazepines Screen,Urine Not Detected (NotDetected); Cocaine Screen,Urine Not Detected (NotDetected); Methadone Screen, Urine Not Detected (NotDetected); Opiate Screen,Urine Not Detected (NotDetected); Oxycodone Screen, Urine Not Detected (NotDetected); Phencyclidine Screen,Urine Not Detected (NotDetected); Tricyclic Antidepressant,Urine Not Detected (NotDetected); Urn Cannabinoid Scrn Detected (NotDetected)
[2020-04-29] MEDS ORDERED: ACETAMINOPHEN TAB 325 MG TAB PO PRN (20:06)
[2020-04-29] MEDS ORDERED: ZIPRASIDONE 20 MG VIAL IM PRN (20:06)
[2020-04-29] MEDS ORDERED: MAG HYDROX/AL HYDROX/SIMETH 30 ML CUP PO PRN (20:06)
[2020-04-29] MEDS ORDERED: MAGNESIUM HYDROXIDE 2,400 MG/10 ML CUP PO PRN (20:06)
[2020-04-29] MEDS ORDERED: LORazepam 2 MG/ML INJ IM PRN (20:09)
[2020-04-29] MEDS ORDERED: traZODone HCL 100 MG TAB PO SCH (21:00)
[2020-04-29] MEDS: NICOTINE 14MG/24HR PATCH TRANSDERM SCH (21:14)
[2020-04-29] MEDS: cloNIDine HCL 0.2 MG TAB PO SCH (21:15)
[2020-04-29] MEDS: ATORVASTATIN 20 MG TAB PO SCH (21:15)
[2020-04-29] MEDS: tiZANidine 4 MG TAB PO SCH (21:15)
[2020-04-29] MEDS: OLANZapine 10 MG TAB PO SCH (21:15)
[2020-04-30 06:05] LABS: Basophils % (A) 0 %; Eosinophils # (A) 0.2 k/uL (0-0.7); Eosinophils % (A) 3 %; HCT 42.7 % (39.0-53.0); HGB 14.5 gm/dL (13.0-17.5); Lymphocytes # (A) 2.2 k/uL (1.0-4.8); Lymphocytes % (A) 30 %; MCH 31.9 pg (25.0-35.0); MCHC 33.9 g/dL (31.0-37.0); Mean Platelet Volume 7.9; Monocytes # (A) 0.5 k/uL (0-1.0); Monocytes % (A) 6 %; Neutrophils # (A) 4.4 k/uL (1.3-7.7); Neutrophils % (A) 59 %; Platelet Count 279 k/uL (150-450); RBC 4.55 m/uL (4.30-5.90); RDW 13.3 % (11.5-15.5); WBC 7.4 k/uL (3.8-10.6)
[2020-04-30 06:16] LABS: ALT 22 U/L (4-49); AST 30 U/L (17-59); African American GFR (CKD) >90 (>60 ml/min/1.73 sqM); Albumin 4.8 g/dL (3.5-5.0); Alkaline Phosphatase 60 U/L (38-126); Anion Gap 7 mmol/L; Blood Urea Nitrogen 7 mg/dL (9-20); Calcium 10.1 mg/dL (8.4-10.2); Carbon Dioxide 26 mmol/L (22-30); Chloride 105 mmol/L (98-107); Cholesterol 131 mg/dL (<200); Glucose 111 mg/dL (74-99); HDL Cholesterol 60 mg/dL (40-60); LDL Cholesterol,Calculated 53 mg/dL (0-99); Non-African American GFR(CKD) >90 (>60 ml/min/1.73 sqM); Potassium 4.9 mmol/L (3.5-5.1); Sodium 138 mmol/L (137-145); Total Bilirubin 0.5 mg/dL (0.2-1.3); Total Protein 7.3 g/dL (6.3-8.2); Triglycerides 91 mg/dL (<150)
[2020-04-30] MEDS ORDERED: PNEUMOCOCCAL VACC-PNEUMOVAX 23 25 MCG/0.5 ML VIAL IM ONE (09:00)
[2020-04-30] MEDS ORDERED: SERTRALINE 50 MG TAB PO SCH (09:00)
[2020-04-30] MEDS: haloperidoL 5 MG TAB PO SCH (09:06)
[2020-04-30] MEDS: tiZANidine 4 MG TAB PO SCH ×3 (09:06→21:10)
[2020-04-30] MEDS: cloNIDine HCL 0.1 MG TAB PO SCH (09:06)
[2020-04-30] MEDS: IBUPROFEN 800 MG TAB PO PRN (09:08)
[2020-04-30] MEDS: LORazepam 1 MG TAB PO PRN ×2 (09:09→15:56)
[2020-04-30] MEDS: NICOTINE 14MG/24HR PATCH TRANSDERM SCH (09:23)
--- NOTE | 2020-04-30 11:48 | P.CONS ---
History of Present Illness - History of Present Illness This is a pleasant 44 years old male with past medical history of hypertension, hyperlipidemia, cigarette smoker, anxiety, bipolar and depression. Presents because of signs symptoms of depression and suicidal ideation, medical consult has been requested for medical management. Patient denies chest pain or dyspnea, no change in urine or bowel habits. He is tolerating diet well. No abdominal pain. No fever. He is hemodynamically stable, blood pressure on the high side 190/87 this morning Review of Systems CONSTITUTIONAL: No fever, no malaise, no fatigue. HEENT: No recent visual problems or hearing problems. Denied any sore throat. CARDIOVASCULAR: No orthopnea, PND, no palpitations, no syncope. PULMONARY: No shortness of breath, no cough, no hemoptysis. GASTROINTESTINAL: No diarrhea, no nausea, no vomiting, no abdominal pain. No rmoactive bowel sounds. NEUROLOGICAL: No headaches, no weakness, no numbness. HEMATOLOGICAL: Denies any bleeding or petechiae. GENITOURINARY: Denies any burning micturition, frequency, or urgency. MUSCULOSKELETAL/RHEUMATOLOGICAL: Denies any joint pain, swelling, or any muscle pain. ENDOCRINE: Denies any polyuria or polydipsia. Past Medical History Past Medical History: Hyperlipidemia, Hypertension History of Any Multi-Drug Resistant Organisms: None Reported Past Surgical History: No Surgical Hx Reported Past Anesthesia/Blood Transfusion Reactions: No Reported Reaction Smoking Status: Current every day smoker - Past Family History Mother Family Medical History: Diabetes Mellitus Medications and Allergies Home Medications Medication Instructions Recorded Confirmed Type Atorvastatin [Lipitor] 20 mg PO HS #14 tab 01/24/16 04/29/20 Rx Ibuprofen [Motrin] 800 mg PO TID PRN 02/21/17 04/29/20 History cloNIDine HCL [Catapres] 0.1 mg PO DAILY 02/21/17 04/29/20 History cloNIDine HCL [Catapres] 0.2 mg PO HS 01/04/18 04/29/20 History Sertraline [Zoloft] 50 mg PO DAILY 06/25/19 04/29/20 History Haloperidol [Haldol] 10 mg PO DAILY 04/29/20 04/29/20 History OLANZapine [ZyPREXA] 10 mg PO HS 04/29/20 04/29/20 History tiZANidine HCL [Zanaflex] 4 mg PO TID 04/29/20 04/29/20 History traZODone HCL 200 mg PO HS 04/29/20 04/29/20 History Allergies Allergy/AdvReac Type Severity Reaction Status Date / Time tramadol Allergy Severe Itching Verified 04/29/20 10:33 Physical Exam Vitals: Vital Signs Temp Pulse Pulse Resp BP BP Pulse Ox 04/30/20 05:57 97.6 F 80 17 190/87 98 04/29/20 20:46 97.3 F L 59 L 18 171/84 04/29/20 17:27 97.9 F 53 L 18 148/72 98 Intake and Output 04/29/20 04/30/20 04/30/20 22:59 06:59 14:59 Other: Weight 59.874 kg GENERAL: The patient is alert and oriented x3, not in any acute distress. Well developed, well nourished. HEENT: Pupils are round and equally reacting to light. EOMI. No scleral icterus. No conjunctival pallor. Normocephalic, atraumatic. No pharyngeal erythema. No thyromegaly. CARDIOVASCULAR: S1 and S2 present. No murmurs, rubs, or gallops. PULMONARY: Chest is clear to auscultation, no wheezing or crackles. ABDOMEN: Soft, nontender, nondistended, normoactive bowel sounds. No palpable organomegaly. MUSCULOSKELETAL: No joint swelling or deformity. EXTREMITIES: No cyanosis, clubbing, or pedal edema. NEUROLOGICAL: Gross neurological examination did not reveal any focal deficits. SKIN: No rashes. No petechiae Results CBC & Chem 7: 04/30/20 05:47 04/30/20 05:47 Labs: Abnormal Lab Results - Last 24 Hours (Table) 04/29/20 04/30/20 Range/Units 10:58 05:47 BUN 7 L (9-20) mg/dL Glucose 111 H (74-99) mg/dL U Marijuana (THC) Screen Detected H (NotDetected) Assessment and Plan Assessment: Depression, suicidal ideation and other sac illnesses, management as per psych team Hypertension Hyperlipidemia Nicotine dependence, patient is counseled he has nicotine patch as cystotomy DVT prophylaxis: Early mobilization We recommend patient follow up with his PCP in one week after discharge and he was instructed with the same Thank you for consulting us, we will see the patient on as needed basis, please feel free to contact us for any further question or clarification
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
[2020-04-30 13:25] VITALS: RESP 16
[2020-04-30 13:34] LABS: Hemoglobin A1C 5.1 % (4.0-6.0)
[2020-04-30] MEDS: amLODIPine 5 MG TAB PO SCH (14:01)
[2020-04-30] MEDS: OLANZapine 10 MG TAB PO SCH (21:10)
[2020-04-30] MEDS: traZODone HCL 100 MG TAB PO SCH (21:10)
[2020-04-30] MEDS: cloNIDine HCL 0.2 MG TAB PO SCH (21:10)
[2020-04-30] MEDS: ATORVASTATIN 20 MG TAB PO SCH (21:10)
[2020-05-01] MEDS: SERTRALINE 100 MG TAB PO SCH (08:00)
[2020-05-01] MEDS: amLODIPine 5 MG TAB PO SCH (08:00)
[2020-05-01] MEDS: haloperidoL 5 MG TAB PO SCH (08:00)
[2020-05-01] MEDS: cloNIDine HCL 0.1 MG TAB PO SCH (08:00)
[2020-05-01] MEDS: tiZANidine 4 MG TAB PO SCH ×3 (08:00→21:24)
[2020-05-01] MEDS: LORazepam 1 MG TAB PO PRN (12:19)
--- NOTE | 2020-05-01 12:23 | P.PN ---
Progress Note - Text Progress Note Date: 05/01/20 Interval History: Patient was seen in his room and was directable and agreeable to speak with wr iter in the office. patient continues to appear to have poor hygiene and grooming today and was wearing hospital gown. Patient did appear to be calmer and more cooperative with marketing writer. He claims that he is feeling better today and claimed to have slept better last night. He denies making any threats towards his girlfriend to any staff members. He claims that he does not seem interested with groups and has not gone to any. He feels that she would be able to be discharged to a friend's house if needed. Patient claims that his mood is gradually improving along with his anxiety. At this time patient denies any suicidal or homical ideations, intent or plan. Patient denies any auditory, visual hallucinations and denies any paranoia or delusions. Patient denies any side effects from the medications and has been compliant with meds. Mental Status Exam: General Appearance: Patient appears to be stated age is alert, directable, and attempts to cooperate, less irritable today. Patient appears to have poor hygiene and grooming. Behavior: Patient is seated without any agitated behavior.less irritable today Speech: Patient's speech is fluent and nonpressured. [place]. Mood/Affect: Patient reports their mood is depressed which is mildly improving, affect is congruent and constricted. Suicidality/Homicidality: Patient denies having any homicidal ideation intent or plan. Denies any suicidal ideations intent or plan Perceptions: Patient denies any visual hallucinations and denies any auditory hallucinations Though content/process: There is no evidence of any delusional thought content, logical. Focused on his medications. [place]. Memory and concentration: AOX3, grossly intact for the purposes of this session. Can spell "WORLD" backwards Judgment and insight: poor, improving mildly. Assessment Bipolar disorder, currently depressed Cannabis use disorder Nicotine dependence Plan: -Patient continues to meet criteria for inpatient psychiatric admission for symptom stabilization and safety. Patient has signed adult voluntary form and medication consent and was placed in patient's chart. -Medications: continue with Zoloft 100 mg daily for mood/anxiety, trazodone 300 mg daily at bedtime for insomnia/mood, Haldol 10 mg daily for psychosis, Zyprexa 10 mg nightly for mood stabilization/insomnia. -When necessary Ativan and Geodon for agitation/aggression. -NRT - nicotine patch -SW on board for discharge planning. Encouraged the patient to participate in milieu. SW will go through with duty to warn given patient supposedly threats on the unit towards his girlfriend prior to discharge. likely discharge in 1-2 days and will be discharged to a friend's house as patient is apparently on a no contact order with his girlfriend.
[2020-05-01] MEDS: ATORVASTATIN 20 MG TAB PO SCH (18:45)
[2020-05-01] MEDS: OLANZapine 10 MG TAB PO SCH (18:45)
[2020-05-01] MEDS: traZODone HCL 100 MG TAB PO SCH (18:46)
[2020-05-01] MEDS: cloNIDine HCL 0.2 MG TAB PO SCH (18:46)
[2020-05-02] MEDS: haloperidoL 5 MG TAB PO SCH (08:46)
[2020-05-02] MEDS: amLODIPine 5 MG TAB PO SCH (08:46)
[2020-05-02] MEDS: cloNIDine HCL 0.1 MG TAB PO SCH (08:46)
[2020-05-02] MEDS: SERTRALINE 100 MG TAB PO SCH (08:47)
[2020-05-02] MEDS: tiZANidine 4 MG TAB PO SCH ×3 (08:47→20:04)
[2020-05-02] MEDS: IBUPROFEN 800 MG TAB PO PRN (08:49)
--- NOTE | 2020-05-02 09:39 | P.PN ---
Progress Note - Text Progress Note Date: 05/02/20 Interval History: Patient was seen in his room laying down in his bed and was directable and agr eeable to speak with keno writer in the office. patient continues to appear to have poor hygiene and grooming today. He states that he was not able to take a shower yesterday as he believes that his clothes were "given away to somebody". Patient appeared to have mild improvement in his irritability today. He claims that his mood has been gradually improving. He states that he was able to sleep throughout the night. He continues to deny making threats towards his girlfriend and states that "I'm going to stay away from her and go to my friend's house". He claims that he does not seem interested with groups and has not gone to any. He states that his anxiety has been improving. At this time patient denies any suicidal or homical ideations, intent or plan. Patient denies any auditory, visual hallucinations and denies any paranoia or delusions. Patient denies any side effects from the medications and has been compliant with meds. Mental Status Exam: General Appearance: Patient appears to be stated age is alert, directable, and attempts to cooperate, less irritable today. Patient appears to have poor hygiene and grooming. Behavior: Patient is seated without any agitated behavior. less irritable Speech: Patient's speech is fluent and nonpressured. [place]. Mood/Affect: Patient reports their mood is mildly improving, affect is congruent and constricted. Suicidality/Homicidality: Patient denies having any homicidal ideation intent or plan. Denies any suicidal ideations intent or plan Perceptions: Patient denies any visual hallucinations and denies any auditory hallucinations Though content/process: There is no evidence of any delusional thought content, logical. [place]. Memory and concentration: AOX3, grossly intact for the purposes of this session. Can spell "WORLD" backwards Judgment and insight: improving mildly. Assessment Bipolar disorder, currently depressed Cannabis use disorder Nicotine dependence Plan: -Patient continues to meet criteria for inpatient psychiatric admission for symptom stabilization and safety. Patient has signed adult voluntary form and medication consent and was placed in patient's chart. -Medications: continue with Zoloft 100 mg daily for mood/anxiety, trazodone 300 mg daily at bedtime for insomnia/mood, Haldol 10 mg daily for psychosis, Zyprexa 10 mg nightly for mood stabilization/insomnia. -When necessary Ativan and Geodon for agitation/aggression. -NRT - nicotine patch -SW on board for discharge planning. Encouraged the patient to participate in milieu. SW will go through with duty to warn given patient supposedly threats on the unit towards his girlfriend prior to discharge. likely discharge tomorrow and will be discharged to a friend's house as patient is apparently on a no contact order with his girlfriend.
[2020-05-02] MEDS: OLANZapine 10 MG TAB PO SCH (20:04)
[2020-05-02] MEDS: ATORVASTATIN 20 MG TAB PO SCH (20:04)
[2020-05-02] MEDS: cloNIDine HCL 0.2 MG TAB PO SCH (20:04)
[2020-05-02] MEDS: traZODone HCL 100 MG TAB PO SCH (20:04)
[2020-05-03 07:53] VITALS: BP 143/85; PULSE 94; TEMP 97.8
[2020-05-03] MEDS: IBUPROFEN 800 MG TAB PO PRN (07:54)
[2020-05-03] MEDS: SERTRALINE 100 MG TAB PO SCH (07:56)
[2020-05-03] MEDS: cloNIDine HCL 0.1 MG TAB PO SCH (07:56)
[2020-05-03] MEDS: amLODIPine 5 MG TAB PO SCH (07:56)
[2020-05-03] MEDS: haloperidoL 5 MG TAB PO SCH (07:56)
[2020-05-03] MEDS: tiZANidine 4 MG TAB PO SCH (07:56)
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
== END 2020-05-03 13:45 | disposition home or self-care (01) | DRG 885 ==
LOC: EC 10:22 → 3MHU 20:01
PROVIDERS: ADMIT Psychiatry & Neurology Psychiatry; ATTEND Psychiatry & Neurology Psychiatry
DX: F31.30 Bipolar disorder, current episode depressed, mild or moderate severity, unspecified (principal); R45.851 Suicidal ideations; F29 Unspecified psychosis not due to a substance or known physiological condition; F12.10 Cannabis abuse, uncomplicated; F17.210 Nicotine dependence, cigarettes, uncomplicated; I10 Essential (primary) hypertension; E78.5 Hyperlipidemia, unspecified; F41.0 Panic disorder [episodic paroxysmal anxiety]; G47.00 Insomnia, unspecified; R45.87 Impulsiveness; Z71.6 Tobacco abuse counseling; Z79.899 Other long term (current) drug therapy; Z91.410 Personal history of adult physical and sexual abuse; Z88.8 Allergy status to other drugs, medicaments and biological substances; Z83.3 Family history of diabetes mellitus; Z81.8 Family history of other mental and behavioral disorders
CPT/HCPCS: 80053; 80061; 80306; 82075; 83036; 84443; 85025; 90732; 99285

== ENCOUNTER 2021-02-08 19:45 | Emergency (ER) | payer MEDICARE, OTHER ==
[2021-02-08] MEDS ORDERED: ALBUTEROL HFA INHALER INHALATION STA (20:08)
--- NOTE | 2021-02-08 20:13 | ED ---
SOB HPI - General Chief Complaint: Shortness of Breath Stated Complaint: SOB, chest pain Time Seen by Provider: 02/08/21 19:51 Source: patient Mode of arrival: ambulatory Limitations: no limitations - History of Present Illness Initial Comments: This is a 45-year-old male who is a smoker but no prior history of heart or lung disease who states he sec for about a week he had cough congestion fever chills or generalized weakness he's had diarrhea decreased oral intake. He also states he has some chest heaviness. Mild to moderate in severity. No other current complaints or modifying factors MD Complaint: shortness of breath, cough - Related Data Previous Rx's Medication Instructions Recorded Doxycycline [Vibramycin] 100 mg PO BID 1 Days #14 capsule 02/08/21 predniSONE [Deltasone] 20 mg PO BID #10 tab 02/08/21 Allergies Allergy/AdvReac Type Severity Reaction Status Date / Time tramadol Allergy Severe Itching Verified 02/08/21 20:05 Review of Systems ROS Statement: Those systems with pertinent positive or pertinent negative responses have been documented in the HPI. ROS Other: All systems not noted in ROS Statement are negative. Past Medical History Past Medical History: Hyperlipidemia, Hypertension History of Any Multi-Drug Resistant Organisms: None Reported Past Surgical History: No Surgical Hx Reported Past Anesthesia/Blood Transfusion Reactions: No Reported Reaction Past Psychological History: Anxiety, Bipolar, Depression, Panic Disorder Smoking Status: Current every day smoker Past Alcohol Use History: Occasional Past Drug Use History: Marijuana - Past Family History Mother Family Medical History: Diabetes Mellitus General Exam - General Exam Comments Initial Comments: This is a well-developed asthenic appearing male who is awake alert oriented times 3 male Limitations: no limitations General appearance: alert, anxious Head exam: Present: atraumatic, normocephalic, normal inspection Eye exam: Present: normal appearance, PERRL, EOMI. Absent: scleral icterus, conjunctival injection, periorbital swelling ENT exam: Present: mucous membranes dry Neck exam: Present: normal inspection, full ROM, other (Surgery or bruits). Absent: tenderness, meningismus, lymphadenopathy Respiratory exam: Present: decreased breath sounds. Absent: respiratory distress, wheezes, rales, rhonchi, stridor, chest wall tenderness Cardiovascular Exam: Present: regular rate, normal rhythm, normal heart sounds. Absent: systolic murmur, diastolic murmur, rubs, gallop, clicks GI/Abdominal exam: Present: soft, normal bowel sounds. Absent: distended, tenderness, guarding, rebound, rigid Extremities exam: Present: normal inspection, full ROM, normal capillary refill. Absent: tenderness, pedal edema, joint swelling, calf tenderness Back exam: Present: normal inspection Neurological exam: Present: alert, oriented X3, CN II-XII intact Psychiatric exam: Present: normal affect, normal mood Skin exam: Present: warm, dry, intact, normal color. Absent: rash Course Vital Signs 02/08/21 02/08/21 19:46 21:12 Temperature 97.8 F 99.0 F Pulse Rate 86 62 Respiratory 22 16 Rate Blood Pressure 209/97 169/78 O2 Sat by Pulse 96 97 Oximetry Medical Decision Making - Medical Decision Making Patient did get improvement after the inhaler. Presentation consistent with asthmatic bronchitis patient be discharged on appropriate medication - Lab Data Result diagrams: 02/08/21 20:13 02/08/21 20:13 Lab Results 02/08/21 02/08/21 02/08/21 Range/Units 20:07 20:13 20:13 WBC 9.0 (3.8-10.6) k/uL RBC 4.44 (4.30-5.90) m/uL Hgb 13.8 (13.0-17.5) gm/dL Hct 39.4 (39.0-53.0) % MCV 88.7 (80.0-100.0) fL MCH 31.0 (25.0-35.0) pg MCHC 34.9 (31.0-37.0) g/dL RDW 13.4 (11.5-15.5) % Plt Count 261 (150-450) k/uL MPV 7.8 Neutrophils % 62 % Lymphocytes % 29 % Monocytes % 5 % Eosinophils % 2 % Basophils % 1 % Neutrophils # 5.5 (1.3-7.7) k/uL Lymphocytes # 2.6 (1.0-4.8) k/uL Monocytes # 0.4 (0-1.0) k/uL Eosinophils # 0.2 (0-0.7) k/uL Basophils # 0.1 (0-0.2) k/uL PT 10.5 (9.0-12.0) sec INR 1.0 (<1.2) APTT 22.2 (22.0-30.0) sec D-Dimer 0.23 (<0.60) mg/L FEU Sodium (137-145) mmol/L Potassium (3.5-5.1) mmol/L Chloride (98-107) mmol/L Carbon Dioxide (22-30) mmol/L Anion Gap mmol/L BUN (9-20) mg/dL Creatinine (0.66-1.25) mg/dL Est GFR (CKD-EPI)AfAm (>60 ml/min/1.73 sqM) Est GFR (CKD-EPI)NonAf (>60 ml/min/1.73 sqM) Glucose (74-99) mg/dL Plasma Lactic Acid Javier (0.7-2.0) mmol/L Calcium (8.4-10.2) mg/dL Magnesium (1.6-2.3) mg/dL Total Bilirubin (0.2-1.3) mg/dL AST (17-59) U/L ALT (4-49) U/L Alkaline Phosphatase (38-126) U/L Creatine Kinase (55-170) U/L Troponin I (0.000-0.034) ng/mL NT-Pro-B Natriuret Pep pg/mL Total Protein (6.3-8.2) g/dL Albumin (3.5-5.0) g/dL Influenza Type A (PCR) Not Detected (Not Detectd) Influenza Type B (PCR) Not Detected (Not Detectd) RSV (PCR) Not Detected (Not Detectd) SARS-CoV-2 (PCR) Not Detected (Not Detectd) 02/08/21 02/08/21 02/08/21 Range/Units 20:13 20:13 20:13 WBC (3.8-10.6) k/uL RBC (4.30-5.90) m/uL Hgb (13.0-17.5) gm/dL Hct (39.0-53.0) % MCV (80.0-100.0) fL MCH (25.0-35.0) pg MCHC (31.0-37.0) g/dL RDW (11.5-15.5) % Plt Count (150-450) k/uL MPV Neutrophils % % Lymphocytes % % Monocytes % % Eosinophils % % Basophils % % Neutrophils # (1.3-7.7) k/uL Lymphocytes # (1.0-4.8) k/uL Monocytes # (0-1.0) k/uL Eosinophils # (0-0.7) k/uL Basophils # (0-0.2) k/uL PT (9.0-12.0) sec INR (<1.2) APTT (22.0-30.0) sec D-Dimer (<0.60) mg/L FEU Sodium 139 (137-145) mmol/L Potassium 3.9 (3.5-5.1) mmol/L Chloride 106 (98-107) mmol/L Carbon Dioxide 22 (22-30) mmol/L Anion Gap 11 mmol/L BUN 11 (9-20) mg/dL Creatinine 1.13 (0.66-1.25) mg/dL Est GFR (CKD-EPI)AfAm 89 (>60 ml/min/1.73 sqM) Est GFR (CKD-EPI)NonAf 77 (>60 ml/min/1.73 sqM) Glucose 102 H (74-99) mg/dL Plasma Lactic Acid Javier 0.9 (0.7-2.0) mmol/L Calcium 9.8 (8.4-10.2) mg/dL Magnesium 1.7 (1.6-2.3) mg/dL Total Bilirubin 0.5 (0.2-1.3) mg/dL AST 26 (17-59) U/L ALT 18 (4-49) U/L Alkaline Phosphatase 92 (38-126) U/L Creatine Kinase 163 (55-170) U/L Troponin I <0.012 (0.000-0.034) ng/mL NT-Pro-B Natriuret Pep pg/mL Total Protein 7.6 (6.3-8.2) g/dL Albumin 4.7 (3.5-5.0) g/dL Influenza Type A (PCR) (Not Detectd) Influenza Type B (PCR) (Not Detectd) RSV (PCR) (Not Detectd) SARS-CoV-2 (PCR) (Not Detectd) 02/08/21 Range/Units 20:13 WBC (3.8-10.6) k/uL RBC (4.30-5.90) m/uL Hgb (13.0-17.5) gm/dL Hct (39.0-53.0) % MCV (80.0-100.0) fL MCH (25.0-35.0) pg MCHC (31.0-37.0) g/dL RDW (11.5-15.5) % Plt Count (150-450) k/uL MPV Neutrophils % % Lymphocytes % % Monocytes % % Eosinophils % % Basophils % % Neutrophils # (1.3-7.7) k/uL Lymphocytes # (1.0-4.8) k/uL Monocytes # (0-1.0) k/uL Eosinophils # (0-0.7) k/uL Basophils # (0-0.2) k/uL PT (9.0-12.0) sec INR (<1.2) APTT (22.0-30.0) sec D-Dimer (<0.60) mg/L FEU Sodium (137-145) mmol/L Potassium (3.5-5.1) mmol/L Chloride (98-107) mmol/L Carbon Dioxide (22-30) mmol/L Anion Gap mmol/L BUN (9-20) mg/dL Creatinine (0.66-1.25) mg/dL Est GFR (CKD-EPI)AfAm (>60 ml/min/1.73 sqM) Est GFR (CKD-EPI)NonAf (>60 ml/min/1.73 sqM) Glucose (74-99) mg/dL Plasma Lactic Acid Javier (0.7-2.0) mmol/L Calcium (8.4-10.2) mg/dL Magnesium (1.6-2.3) mg/dL Total Bilirubin (0.2-1.3) mg/dL AST (17-59) U/L ALT (4-49) U/L Alkaline Phosphatase (38-126) U/L Creatine Kinase (55-170) U/L Troponin I (0.000-0.034) ng/mL NT-Pro-B Natriuret Pep 38 pg/mL Total Protein (6.3-8.2) g/dL Albumin (3.5-5.0) g/dL Influenza Type A (PCR) (Not Detectd) Influenza Type B (PCR) (Not Detectd) RSV (PCR) (Not Detectd) SARS-CoV-2 (PCR) (Not Detectd) - EKG Data -: EKG Interpreted by Me EKG shows normal: sinus rhythm, axis, intervals, QRS complexes, ST-T waves Rate: normal EKG Comments: Normal sinus rhythm 75. Interval 148 QRS duration 86 QT since QTC 386/4:[address]-T wave changes some artifact present - Radiology Data Radiology results: report reviewed, image reviewed (Imaging the report reviewed findings.) Disposition Clinical Impression: Asthmatic bronchitis, Acute bronchospasm Disposition: HOME SELF-CARE Condition: Good Instructions (If sedation given, give patient instructions): Bronchospasm (ED), Acute Bronchitis (ED) Prescriptions: predniSONE [Deltasone] 20 mg PO BID #10 tab Doxycycline [Vibramycin] 100 mg PO BID 1 Days #14 capsule Is patient prescribed a controlled substance at d/c from ED?: No Referrals: Jorge Lopez MD [Primary Care Provider] - 1-2 days
[2021-02-08 20:25] LABS: Basophils # (A) 0.1 k/uL (0-0.2); Basophils % (A) 1 %; Eosinophils # (A) 0.2 k/uL (0-0.7); Eosinophils % (A) 2 %; HCT 39.4 % (39.0-53.0); HGB 13.8 gm/dL (13.0-17.5); Lymphocytes # (A) 2.6 k/uL (1.0-4.8); Lymphocytes % (A) 29 %; MCHC 34.9 g/dL (31.0-37.0); MCV 88.7 fL (80.0-100.0); Mean Platelet Volume 7.8; Monocytes # (A) 0.4 k/uL (0-1.0); Monocytes % (A) 5 %; Neutrophils # (A) 5.5 k/uL (1.3-7.7); Neutrophils % (A) 62 %; Platelet Count 261 k/uL (150-450); RBC 4.44 m/uL (4.30-5.90); RDW 13.4 % (11.5-15.5)
[2021-02-08 20:34] LABS: Albumin 4.7 g/dL (3.5-5.0); Calcium 9.8 mg/dL (8.4-10.2); Magnesium 1.7 mg/dL (1.6-2.3); Potassium 3.9 mmol/L (3.5-5.1); Total Bilirubin 0.5 mg/dL (0.2-1.3); Total Protein 7.6 g/dL (6.3-8.2)
--- NOTE | 2021-02-08 20:42 | XR ---
EXAMINATION TYPE: XR chest 2V DATE OF EXAM: 02/08/2021 COMPARISON: 01/04/2018 HISTORY: Difficulty breathing TECHNIQUE: 3 views FINDINGS: Heart and mediastinum are normal. Lungs are clear. Diaphragm is normal. Bony thorax is inta ct. The pulmonary vascularity is normal. IMPRESSION: Normal chest. No change.
[2021-02-08 21:03] LABS: D-Dimer 0.23 mg/L FEU (<0.60); Partial Thromboplastin Time 22.2 sec (22.0-30.0); Prothrombin Time 10.5 sec (9.0-12.0)
[2021-02-08 21:13] VITALS: BP 169/78; PULSE 62; RESP 16; TEMP 99
[2021-02-08] MEDS ORDERED: predniSONE 50 MG TAB PO STA (21:51)
[2021-02-08] MEDS ORDERED: DOXYCYCLINE 100 MG CAP PO STA (21:51)
== END 2021-02-08 22:04 | disposition home or self-care (01) ==
LOC: EC 19:45
DX: J45.909 Unspecified asthma, uncomplicated (principal); E78.5 Hyperlipidemia, unspecified; F17.200 Nicotine dependence, unspecified, uncomplicated; I10 Essential (primary) hypertension; F32.9 Major depressive disorder, single episode, unspecified; F12.90 Cannabis use, unspecified, uncomplicated
CPT/HCPCS: 36415; 94640; 93005; 85379; 83880; 80053; 82550; 83605; 83735; 84484; 85025; 85610; 85730; 87636; 71046; 99285; J7512

== ENCOUNTER 2021-03-05 16:54 | Observation (INO) | payer MEDICARE, OTHER ==
[2021-03-05] MEDS ORDERED: ASPIRIN 81 MG PO STA (17:34)
[2021-03-05] MEDS ORDERED: NITROGLYCERIN SL TABS 0.4 MG TAB SUBLINGUAL STA (17:34)
--- NOTE | 2021-03-05 17:37 | ED ---
Chest Pain HPI - General Chief Complaint: Chest Pain Stated Complaint: Chest Pain/Diarrhea Time Seen by Provider: 03/05/21 17:11 Source: patient, RN notes reviewed Mode of arrival: ambulatory Limitations: no limitations - History of Present Illness Initial Comments: This is a 45-year-old male with no prior history of heart disease who presents with complaints of intermittent episodes retrosternal dull chest pain when after past week since he was diagnosed with bronchitis. He does get worse with movement with deep breathing and also with exertion 8/10 severity currently. He has had shortness of breath with it. He also additionally states he's had some diarrhea. Also unable sleep well. No other current complaints MD Complaint: chest pain - Related Data Previous Rx's Medication Instructions Recorded Doxycycline [Vibramycin] 100 mg PO BID 1 Days #14 capsule 02/08/21 predniSONE [Deltasone] 20 mg PO BID #10 tab 02/08/21 Allergies Allergy/AdvReac Type Severity Reaction Status Date / Time tramadol Allergy Severe Itching Verified 03/05/21 16:59 Review of Systems ROS Statement: Those systems with pertinent positive or pertinent negative responses have been documented in the HPI. ROS Other: All systems not noted in ROS Statement are negative. EKG Findings - EKG Results: EKG: interpreted by ERMD, sinus rhythm (No sinus rhythm of 73. Interval 138 QRS duration 86 QT since QTC 392/[address]-T wave changes) Past Medical History Past Medical History: Hyperlipidemia, Hypertension History of Any Multi-Drug Resistant Organisms: None Reported Past Surgical History: No Surgical Hx Reported Past Anesthesia/Blood Transfusion Reactions: No Reported Reaction Past Psychological History: Anxiety, Bipolar, Depression, Panic Disorder Smoking Status: Current every day smoker Past Alcohol Use History: Occasional Past Drug Use History: Marijuana - Past Family History Mother Family Medical History: Diabetes Mellitus General Exam - General Exam Comments Initial Comments: This is a well-developed well-nourished awake alert oriented 3 male Limitations: no limitations General appearance: alert, in no apparent distress Head exam: Present: atraumatic, normocephalic, normal inspection Eye exam: Present: normal appearance, PERRL, EOMI. Absent: scleral icterus, conjunctival injection, periorbital swelling ENT exam: Present: normal exam, mucous membranes moist Neck exam: Present: normal inspection. Absent: tenderness, meningismus, lymphadenopathy Respiratory exam: Present: normal lung sounds bilaterally. Absent: respiratory distress, wheezes, rales, rhonchi, stridor Cardiovascular Exam: Present: regular rate, normal rhythm, normal heart sounds. Absent: systolic murmur, diastolic murmur, rubs, gallop, clicks GI/Abdominal exam: Present: soft, normal bowel sounds. Absent: distended, tenderness, guarding, rebound, rigid Extremities exam: Present: normal inspection, full ROM, normal capillary refill. Absent: tenderness, pedal edema, joint swelling, calf tenderness Back exam: Present: normal inspection Neurological exam: Present: alert, oriented X3, CN II-XII intact Psychiatric exam: Present: normal affect, normal mood Skin exam: Present: warm, dry, intact, normal color. Absent: rash Course Vital Signs 03/05/21 16:59 Temperature 98.8 F Pulse Rate 74 Respiratory 18 Rate Blood Pressure 220/96 O2 Sat by Pulse 98 Oximetry - Reevaluation(s) Reevaluation #1: 03/05/21 19:15 Patient did get some relief in the pain after aspirin and nitroglycerin. Chest Pain MDM - MDM Imaging reviewed no acute findings. Discuss findings with the patient is presentation consistent with unstable angina and will be admitted case was discussed with Dr. Jessica. Critical Care Time Critical Care Time: Yes Total Critical Care Time: 31 Disposition Clinical Impression: Unstable angina pectoris, Chest pain Disposition: ADMITTED IP TO THIS HOSP Condition: Fair Referrals: Jorge Lopez MD [Primary Care Provider] - 1-2 days
[2021-03-05 17:42] LABS: Basophils % (A) 0 %; Eosinophils # (A) 0.2 k/uL (0-0.7); Eosinophils % (A) 1 %; HGB 15.2 gm/dL (13.0-17.5); Lymphocytes # (A) 3.2 k/uL (1.0-4.8); Lymphocytes % (A) 25 %; MCHC 34.4 g/dL (31.0-37.0); MCV 89.9 fL (80.0-100.0); Mean Platelet Volume 7.5; Monocytes # (A) 0.6 k/uL (0-1.0); Monocytes % (A) 4 %; Neutrophils # (A) 8.5 k/uL (1.3-7.7); Neutrophils % (A) 67 %; Platelet Count 296 k/uL (150-450); RDW 13.2 % (11.5-15.5); WBC 12.5 k/uL (3.8-10.6)
[2021-03-05 17:51] LABS: ALT 31 U/L (4-49); AST 26 U/L (17-59); African American GFR (CKD) >90 (>60 ml/min/1.73 sqM); Albumin 4.5 g/dL (3.5-5.0); Alkaline Phosphatase 87 U/L (38-126); Anion Gap 6 mmol/L; Blood Urea Nitrogen 15 mg/dL (9-20); Calcium 9.9 mg/dL (8.4-10.2); Carbon Dioxide 23 mmol/L (22-30); Chloride 106 mmol/L (98-107); Creatine Kinase 126 U/L (55-170); Glucose 102 mg/dL (74-99); Lipase 70 U/L (23-300); Non-African American GFR(CKD) >90 (>60 ml/min/1.73 sqM); Potassium 4.2 mmol/L (3.5-5.1); Sodium 135 mmol/L (137-145); Total Bilirubin 0.5 mg/dL (0.2-1.3); Total Protein 7.3 g/dL (6.3-8.2)
[2021-03-05 17:57] LABS: INR 0.9 (<1.2); Partial Thromboplastin Time 20.8 sec (22.0-30.0); Prothrombin Time 9.7 sec (9.0-12.0)
--- NOTE | 2021-03-05 18:40 | XR ---
EXAMINATION TYPE: XR chest 2V DATE OF EXAM: 03/05/2021 COMPARISON: 02/08/2021 HISTORY: Chest pain TECHNIQUE: 2 views FINDINGS: Heart and mediastinum are normal. Lungs are clear. Diaphragm is normal. Bony thorax is norm al. There are chest leads. IMPRESSION: Normal chest. No change.
[2021-03-05] MEDS ORDERED: NITROGLYCERIN SL TABS 0.4 MG TAB SUBLINGUAL PRN (19:16)
[2021-03-05] MEDS ORDERED: HEPARIN SODIUM 1,000 UN/ML (10ML VL) IV ONE (19:16)
[2021-03-05] MEDS ORDERED: HEPARIN SOD,PORK IN 0.45% NACL 25,000 UNIT in 0.45% NACL 1 250ML.BAG IV SCH (19:30)
[2021-03-05] MEDS ORDERED: SODIUM CHLORIDE 0.9% 1,000 ML IV SCH (19:30)
[2021-03-05] MEDS ORDERED: ALPRAZolam 0.25 MG TAB PO PRN (23:08)
[2021-03-05] MEDS ORDERED: hydrOXYzine pamoate 25 MG CAP PO SCH (23:30)
[2021-03-05] MEDS ORDERED: TEMAZEPAM 15 MG CAP PO PRN (23:30)
[2021-03-05] MEDS: NITROGLYCERIN OINT 1 INCH/GM PACKET TOPICAL SCH (23:44)
[2021-03-05] MEDS: cloNIDine HCL 0.1 MG TAB PO SCH (23:44)
[2021-03-06] MEDS ORDERED: HEPARIN SODIUM 1,000 UN/ML (10ML VL) IV PRN (02:55)
[2021-03-06] MEDS: NITROGLYCERIN OINT 1 INCH/GM PACKET TOPICAL SCH (06:06)
[2021-03-06] MEDS: cloNIDine HCL 0.1 MG TAB PO SCH (07:53)
[2021-03-06] MEDS ORDERED: FAMOTIDINE 20 MG/2 ML VIAL IV SCH (09:00)
[2021-03-06] MEDS ORDERED: ASPIRIN 325 MG TAB PO SCH (09:00)
[2021-03-06] MEDS ORDERED: LOSARTAN 50 MG TAB PO SCH (09:00)
[2021-03-06] MEDS ORDERED: SERTRALINE 100 MG TAB PO SCH (09:00)
[2021-03-06] MEDS ORDERED: DOXYCYCLINE 100 MG CAP PO SCH (09:00)
[2021-03-06] MEDS ORDERED: ATORVASTATIN 40 MG TAB PO SCH (10:00)
[2021-03-06 10:14] VITALS: RESP 18
[2021-03-06 12:08] VITALS: BP 164/94; PULSE 89; TEMP 99
[2021-03-06 12:21] LABS: Chol/HDL Ratio 6.45; LDL Cholesterol,Calculated 153.4 mg/dL (0.0-131.0); VLDL Calculation 53.6 mg/dL (5.00-40.00)
--- NOTE | 2021-03-06 13:55 | P.HPIM ---
History of Present Illness Patient was admitted for rule out of acute coronary syndromes although patient denied any chest pain to me. Patient is a 45-year-old male was recently seen in pulmonology clinic and the patient was diagnosed with bronchitis patient was having cough with the discolored sputum because of which patient was started on doxepin prednisone and the albuterol. Patient subsequently started having epigastric abdominal discomfort and nausea patient denied any shortness of breath patient denied any fever chills patient had diarrhea. Patient denied active any chest pain to me patient pain improved patient was given Pepcid. Patient continues to smoke Review of Systems REVIEW OF SYSTEMS: CONSTITUTIONAL: No fever, no malaise, no fatigue. HEENT: No recent visual problems or hearing problems. Denied any sore throat. CARDIOVASCULAR: No chest pain, orthopnea, PND, no palpitations, no syncope. PULMONARY: No shortness of breath, no cough, no hemoptysis. GASTROINTESTINAL: No diarrhea, no nausea, no vomiting,. NEUROLOGICAL: No headaches, no weakness, no numbness. HEMATOLOGICAL: Denies any bleeding or petechiae. GENITOURINARY: Denies any burning micturition, frequency, or urgency. MUSCULOSKELETAL/RHEUMATOLOGICAL: Denies any joint pain, swelling, or any muscle pain. ENDOCRINE: Denies any polyuria or polydipsia. The rest of the 14-point review of systems is negative. Past Medical History Past Medical History: Hyperlipidemia, Hypertension Additional Past Medical History / Comment(s): Recent bronchitis History of Any Multi-Drug Resistant Organisms: None Reported Past Surgical History: No Surgical Hx Reported Past Anesthesia/Blood Transfusion Reactions: Unable to Obtain Additional Past Anesthesia/Blood Transfusion Reaction / Comment(s): Pt has never had surgery. Smoking Status: Current every day smoker - Past Family History Father Family Medical History: Myocardial Infarction (NH) Additional Family Medical History / Comment(s): Father of a NH at the age of 41 yrs. Mother Family Medical History: Diabetes Mellitus Additional Family Medical History / Comment(s): Mother of old age. Medications and Allergies Home Medications Medication Instructions Recorded Confirmed Type Doxycycline [Vibramycin] 100 mg PO BID 1 Days #14 capsule 02/08/21 03/05/21 Rx Sertraline HCl [Zoloft] 100 mg PO DAILY 03/05/21 03/05/21 History hydrOXYzine pamoate [Vistaril] 25 mg PO HS 03/05/21 03/05/21 History predniSONE [Deltasone] See Taper PO DIRECTED 03/05/21 03/05/21 History Omeprazole [PriLOSEC] 40 mg PO PAULA #14 capsule. 03/06/21 Rx Allergies Allergy/AdvReac Type Severity Reaction Status Date / Time tramadol Allergy Severe Itching Verified 03/05/21 19:54 Physical Exam Vitals: Vital Signs Temp Pulse Resp BP Pulse Ox 03/06/21 12:09 99 F 89 18 164/94 98 03/06/21 12:00 99 F 89 18 164/94 98 03/06/21 10:12 73 18 182/102 96 03/06/21 08:49 64 16 164/93 94 L 03/06/21 07:54 81 20 191/106 98 03/06/21 06:07 60 18 180/103 97 03/06/21 02:17 68 18 186/98 98 03/05/21 23:47 81 18 189/105 97 03/05/21 19:48 74 16 191/96 97 03/05/21 16:59 98.8 F 74 18 220/96 98 Intake and Output 03/05/21 03/06/21 03/06/21 22:59 06:59 14:59 Intake Total 57.77 Balance 57.77 Intake: Intake, IV Titration 57.77 Amount Heparin Sod,Pork in 0.45% 57.77 NaCl 25,000 unit In 0.45 % NaCl 1 250ml.bag @ 12 UNITS/KG/HR 8.709 mls/hr IV .Q24H [facility] Rx#: [id number] Other: Weight 72.575 kg 72.575 kg PHYSICAL EXAMINATION: GENERAL: The patient is alert and oriented x3, not in any acute distress. Well developed, well nourished. HEENT: Pupils are round and equally reacting to light. EOMI. No scleral icterus. No conjunctival pallor. Normocephalic, atraumatic. No pharyngeal erythema. No thyromegaly. CARDIOVASCULAR: S1 and S2 present. No murmurs, rubs, or gallops. PULMONARY: Chest is clear to auscultation, no wheezing or crackles. ABDOMEN: Soft, nontender, nondistended, normoactive bowel sounds. No palpable organomegaly. MUSCULOSKELETAL: No joint swelling or deformity. EXTREMITIES: No cyanosis, clubbing, or pedal edema. NEUROLOGICAL: Gross neurological examination did not reveal any focal deficits. SKIN: No rashes. Results CBC & Chem 7: 03/05/21 17:33 03/05/21 17:33 Labs: Abnormal Lab Results - Last 24 Hours (Table) 03/05/21 03/05/21 03/05/21 Range/Units 17:33 17:33 17:33 WBC 12.5 H (3.8-10.6) k/uL Neutrophils # 8.5 H (1.3-7.7) k/uL APTT 20.8 L (22.0-30.0) sec Sodium 135 L (137-145) mmol/L Glucose 102 H (74-99) mg/dL Triglycerides (0.0-149.0) mg/dL Cholesterol (0-200) mg/dL LDL Cholesterol, Calc (0.0-131.0) mg/dL VLDL Cholesterol, Calc (5.00-40.00) mg/dL HDL Cholesterol (40.0-60.0) mg/dL 03/06/21 03/06/21 03/06/21 Range/Units 02:03 02:03 07:55 WBC (3.8-10.6) k/uL Neutrophils # (1.3-7.7) k/uL APTT 40.0 H 46.1 H (22.0-30.0) sec Sodium (137-145) mmol/L Glucose (74-99) mg/dL Triglycerides 268.0 H (0.0-149.0) mg/dL Cholesterol 245 H (0-200) mg/dL LDL Cholesterol, Calc 153.4 H (0.0-131.0) mg/dL VLDL Cholesterol, Calc 53.60 H (5.00-40.00) mg/dL HDL Cholesterol 38.0 L (40.0-60.0) mg/dL Thrombosis Risk Factor Assmnt - Choose All That Apply Any of the Below Risk Factors Present?: Yes Each Factor Represents 1 point: Age 41-60 years Other Risk Factors: No Other congenital or acquired thrombophilia - If yes, enter type in comment: No Thrombosis Risk Factor Assessment Total Risk Factor Score: 1 Thrombosis Risk Factor Assessment Level: Low Risk Assessment and Plan Plan: -Epigastric abdominal pain: Patient denied any chest pain to me although we'll rule out acute coronary syndromes, troponins are negative EKG showed sinus rhythm. Patient's symptomatology is consistent with esophagitis and gastritis secondary to doxycycline and prednisone. Patient was given option of staying here that until he is evaluated by cardiology is cardiology was consulted from ER although patient wanted to go home and see a v belt mold assembler and curer as an outpatient and patient will be discharged on Prilosec for 14 days. -Recent bronchitis patient will continue with his medications of doxepin and prednisone -Hypertension uncontrolled elevated blood pressure patient's Dilantin will be discontinued and patient will be started on losartan. Patient will be discharged today to follow up with PCP and cardiology as an outpatient
--- NOTE | 2021-03-06 13:56 | P.DS ---
Providers Date of admission: 03/05/21 19:16 Attending physician: Hermes Jsesica Consults: 03/05/21 19:16 Consult Physician Urgent Consulting Provider: Rocky Banks Consult Reason/Comments: Chest pain Do you want consulting provider notified?: Yes Primary care physician: Jessica Patel [facility] Course: Refer to my history of present illness for further details Patient Condition at Discharge: Fair Plan - Discharge Summary Discharge Rx Participant: No New Discharge Prescriptions: New Omeprazole [PriLOSEC] 40 mg PO AC-BRKFST #14 capsule. Losartan [Cozaar] 50 mg PO BID #30 tab Continue Doxycycline [Vibramycin] 100 mg PO BID 1 Days #14 capsule predniSONE [Deltasone] See Taper PO DIRECTED Sertraline HCl [Zoloft] 100 mg PO DAILY hydrOXYzine pamoate [Vistaril] 25 mg PO HS Discontinued cloNIDine HCL 0.1 mg PO TID Discharge Medication List Doxycycline [Vibramycin] 100 mg PO BID 1 Days #14 capsule 02/08/21 [Rx] Sertraline HCl [Zoloft] 100 mg PO DAILY 03/05/21 [History] hydrOXYzine pamoate [Vistaril] 25 mg PO HS 03/05/21 [History] predniSONE [Deltasone] See Taper PO DIRECTED 03/05/21 [History] Losartan [Cozaar] 50 mg PO BID #30 tab 03/06/21 [Rx] Omeprazole [PriLOSEC] 40 mg PO AC-BRKFST #14 capsule. 03/06/21 [Rx] Follow up Appointment(s)/Referral(s): Jose Alfredo Swartz MD [STAFF PHYSICIAN] - 2 Weeks Jorge Lopez MD [Primary Care Provider] - 3 Days Patient Instructions/Handouts: Chest Pain (ED), Costochondritis (ED) Discharge Disposition: HOME SELF-CARE
--- NOTE | 2021-03-06 14:18 | P.CRDCN ---
History of Present Illness History of present illness: HISTORY OF PRESENTING ILLNESS This is a pleasant 45-year-old male past medical history significant for hypertension, hyperlipidemia. Recent diagnosis of bronchitis. He does not follow with a decontaminator. We have been asked to see in consultation for chest pain. Patient is seen and examined in the emergency Department, no acute distress. He states about a week and half ago he was diagnosed with pericarditis. He's been having chest pain for 2-3 days. He does have some exertional shortness of breath for the past couple days. He feels as if his normal activities and even if he walked in the halls in the hospital that he would be able to do it due to his shortness of breath. This chest pain is midsternal, nonradiating, is slightly exertional. He denies any palpitations, lower extremity edema, fatigue, weakness, lightheadedness or syncope. He denies any symptoms of orthopnea or PND. He denies history of diabetes, [place], stroke, coronary artery disease. He does state that his primary care provider started him on clonidine 0.1mg TID for blood pressure. He sleeps with 1 pillow. He is a current every day smoker. He also does smoke marijuana. He does drink beers every day states less than 14 a week. DIAGNOSTICS EKG reveals EKG revealed normal sinus rhythm, heart rate 73, no significant STT wave abnormalities. No prior EKG to compare Chest xray no active cardiopulmonary process Laboratory reviewed, WBC 12.5, hemoglobin 15.2, platelets 296, sodium 135, potassium 4.2, serum creatinine 0.78, BUN 15, troponin negative 3, liver enzymes within normal limits, magnesium 2.0, COVID-19 negative REVIEW OF SYSTEMS At the time of my exam: CONSTITUTIONAL: Denies fever or chills. CARDIOVASCULAR: + chest pain, +shortness of breath,Denies orthopnea, PND or palpitations. RESPIRATORY: Denies cough. GASTROINTESTINAL: Denies abdominal pain, diarrhea, constipation, nausea or vomiting. MUSCULOSKELETAL: Denies myalgias. NEUROLOGIC: Denies numbness, tingling, headacbe or weakness. ENDOCRINE: Denies fatigue, weight change, polydipsia or polyurina. GENITOURINARY: Denies burning, hematuria or urgency with micturation. HEMATOLOGIC: Denies history of anemia or bleeding. PHYSICAL EXAMINATION Blood pressure 182/102 heart rate 73 afebrile and maintaining oxygen saturation 96% on room air CONSTITUTIONAL: No apparent distress. HEENT: Head is normocephalic. Pupils are equal, round. Sclerae anicteric. Mucous membranes of the mouth are moist. No JVD. No carotid bruit. CHEST EXAMINATION: Lungs are clear to auscultation. No chest wall tenderness is noted on palpation or with deep breathing. HEART EXAMINATION: Regular rate and rhythm. S1, S2 heard. No murmurs, gallops or rub. ABDOMEN: Soft, nontender. Positive bowel sounds. EXTREMITIES: 2+ peripheral pulses, no lower extremity edema and no calf tenderness. SKIN: intact NEUROLOGIC EXAMINATION: Patient is awake, alert and oriented x3. ASSESSMENT Chest pain, atypical acute coronary syndrome ruled out. No ischemic changes on EKG. Cardiac enzymes negative 3 Shortness of Breath Bronchitis Hyperlipidemia- not on a statin at home Hypertensive Urgency PLAN An acute coronary event has been ruled out with no EKG evidence of ischemia and negative cardiac enzymes. Discontinue heparin drip Recommend blood pressure control for this patient Will start losartan 50mg BID Discontinue clonidine Patient most likely will need echocardiogram and stress test, however, would do this inpatient vs outpatient once the patient's BP is better controlled Check Lipid panel and hemoglobin A1c Smoking cessation discussed and highly recommended. Further recommendations based on clinical course Nurse Practitioner note has been reviewed, I agree with a documented findings and plan of care. Patient was seen and examined. Past Medical History Past Medical History: Hyperlipidemia, Hypertension History of Any Multi-Drug Resistant Organisms: None Reported Past Surgical History: No Surgical Hx Reported Past Anesthesia/Blood Transfusion Reactions: No Reported Reaction Past Psychological History: Anxiety, Bipolar, Depression, Panic Disorder Smoking Status: Current every day smoker Past Alcohol Use History: Occasional Past Drug Use History: Marijuana - Past Family History Mother Family Medical History: Diabetes Mellitus Father Family Medical History: Myocardial Infarction (MN) Additional Family Medical History / Comment(s): Father of a MN at the age of 41 yrs. Medications and Allergies Home Medications Medication Instructions Recorded Confirmed Type Doxycycline [Vibramycin] 100 mg PO BID 1 Days #14 capsule 02/08/21 03/05/21 Rx Sertraline HCl [Zoloft] 100 mg PO DAILY 03/05/21 03/05/21 History hydrOXYzine pamoate [Vistaril] 25 mg PO HS 03/05/21 03/05/21 History predniSONE [Deltasone] See Taper PO DIRECTED 03/05/21 03/05/21 History Losartan [Cozaar] 50 mg PO BID #30 tab 03/06/21 Rx Omeprazole [PriLOSEC] 40 mg PO AC-BRKFST #14 capsule. 03/06/21 Rx Allergies Allergy/AdvReac Type Severity Reaction Status Date / Time tramadol Allergy Severe Itching Verified 03/05/21 19:54 Physical Exam Vitals: Vital Signs Temp Pulse Resp BP Pulse Ox 03/06/21 08:49 64 16 164/93 94 L 03/06/21 07:54 81 20 191/106 98 03/06/21 06:07 60 18 180/103 97 03/06/21 02:17 68 18 186/98 98 03/05/21 23:47 81 18 189/105 97 03/05/21 19:48 74 16 191/96 97 03/05/21 16:59 98.8 F 74 18 220/96 98 Intake and Output 03/05/21 03/06/21 03/06/21 22:59 06:59 14:59 Intake Total 57.77 Balance 57.77 Intake: Intake, IV Titration 57.77 Amount Heparin Sod,Pork in 0.45% 57.77 NaCl 25,000 unit In 0.45 % NaCl 1 250ml.bag @ 12 UNITS/KG/HR 8.709 mls/hr IV .Q24H [facility] Rx#: [id number] Other: Weight 72.575 kg Results 03/05/21 17:33 03/05/21 17:33 Cardiac Enzymes 03/05/21 03/05/21 03/05/21 Range/Units 17:33 17:33 20:22 AST 26 (17-59) U/L Troponin I <0.012 <0.012 (0.000-0.034) ng/mL 03/05/21 Range/Units 23:40 AST (17-59) U/L Troponin I <0.012 (0.000-0.034) ng/mL Coagulation 03/05/21 03/06/21 03/06/21 Range/Units 17:33 02:03 07:55 PT 9.7 (9.0-12.0) sec APTT 20.8 L 40.0 H 46.1 H (22.0-30.0) sec CBC 03/05/21 Range/Units 17:33 WBC 12.5 H (3.8-10.6) k/uL RBC 4.90 (4.30-5.90) m/uL Hgb 15.2 (13.0-17.5) gm/dL Hct 44.0 (39.0-53.0) % Plt Count 296 (150-450) k/uL Comprehensive Metabolic Panel 03/05/21 Range/Units 17:33 Sodium 135 L (137-145) mmol/L Potassium 4.2 (3.5-5.1) mmol/L Chloride 106 (98-107) mmol/L Carbon Dioxide 23 (22-30) mmol/L BUN 15 (9-20) mg/dL Creatinine 0.78 (0.66-1.25) mg/dL Glucose 102 H (74-99) mg/dL Calcium 9.9 (8.4-10.2) mg/dL AST 26 (17-59) U/L ALT 31 (4-49) U/L Alkaline Phosphatase 87 (38-126) U/L Total Protein 7.3 (6.3-8.2) g/dL Albumin 4.5 (3.5-5.0) g/dL Current Medications Generic Name Dose Route Start Last Admin Trade Name Freq PRN Reason Stop Dose Admin Alprazolam 0.25 mg 03/05/21 23:08 Alprazolam 0.25 Mg Tab PO BID PRN Anxiety Clonidine 0.1 mg 03/05/21 23:30 03/06/21 07:53 Clonidine Hcl 0.1 Mg Tab PO 0.1 mg TID [facility]ESSY Administration Doxycycline Monohydrate 100 mg 03/06/21 09:00 03/06/21 07:53 Doxycycline 100 Mg Cap PO 100 mg BID YESSY Administration Famotidine 20 mg 03/06/21 09:00 03/06/21 08:49 Famotidine 20 Mg/2 Ml Vial IV 20 mg Q12HR [facility] Administration Heparin Sodium (Porcine) 0 unit 03/06/21 02:55 03/06/21 03:10 Heparin Sodium 1,000 Un/Ml (10ml Vl) IV 1,814 unit PER PROTOCOL PRN Administration Low PTT Protocol Hydroxyzine Pamoate 25 mg 03/05/21 23:30 03/05/21 23:44 Hydroxyzine Pamoate 25 Mg Cap PO 25 mg HS YESSY Administration Sodium Chloride 1,000 mls @ 20 mls/hr 03/05/21 19:30 03/05/21 20:35 Saline 0.9% IV 20 mls/hr .Q24H [facility] Administration Losartan Potassium 50 mg 03/06/21 09:00 03/06/21 08:48 Losartan 50 Mg Tab PO 50 mg BID YESSY Administration Nitroglycerin 0.4 mg 03/05/21 19:16 Nitroglycerin Sl Tabs 0.4 Mg Tab SUBLINGUAL Q5M PRN Chest Pain Nitroglycerin 1 inch 03/06/21 00:00 03/06/21 06:06 Nitroglycerin Oint 1 Inch/Gm Packet TOPICAL 1 inch Q6HR [facility] Administration Sertraline HCl 100 mg 03/06/21 09:00 03/06/21 07:53 Sertraline 100 Mg Tab PO 100 mg DAILY [facility]ESS[facility] Administration Temazepam 15 mg 03/05/21 23:30 03/05/21 23:44 Temazepam 15 Mg Cap PO 15 mg HS PRN Administration Insomnia Intake and Output 03/05/21 03/06/21 03/06/21 22:59 06:59 14:59 Intake Total 57.77 Balance 57.77 Intake: Intake, IV Titration 57.77 Amount Heparin Sod,Pork in 0.45% 57.77 NaCl 25,000 unit In 0.45 % NaCl 1 250ml.bag @ 12 UNITS/KG/HR 8.709 mls/hr IV .Q24H [facility] Rx#: [id number] Other: Weight 72.575 kg 03/05/21 17:33 03/05/21 17:33
== END 2021-03-06 12:09 | disposition home or self-care (01) ==
LOC: EC 16:54 → 6NMEDSUR 19:16
PROVIDERS: ADMIT Hospitalist; ATTEND Hospitalist
DX: K20.90 Esophagitis, unspecified without bleeding (principal); K29.70 Gastritis, unspecified, without bleeding; T36.4X5A Adverse effect of tetracyclines, initial encounter; T38.0X5A Adverse effect of glucocorticoids and synthetic analogues, initial encounter; I16.0 Hypertensive urgency; I10 Essential (primary) hypertension; J40 Bronchitis, not specified as acute or chronic; E78.5 Hyperlipidemia, unspecified; Z20.822 Contact with and (suspected) exposure to COVID-19; F12.90 Cannabis use, unspecified, uncomplicated; F31.9 Bipolar disorder, unspecified; F41.0 Panic disorder [episodic paroxysmal anxiety]; F17.200 Nicotine dependence, unspecified, uncomplicated; Z79.899 Other long term (current) drug therapy; Z88.5 Allergy status to narcotic agent; Z82.49 Family history of ischemic heart disease and other diseases of the circulatory system; Z83.3 Family history of diabetes mellitus
CPT/HCPCS: 96365; 96366 ×2; 99291; 36415; 93005; 83880; 80061; 80053; 82550; 83690; 83735; 84484; 85025; 85610; 85730 ×2; 87635; 71046; G0378 ×2; J1644 ×3

== ENCOUNTER 2021-03-07 15:29 | Inpatient (IN) | payer MEDICARE, OTHER ==
--- NOTE | 2021-03-07 16:03 | ED ---
General Adult HPI - General Stated complaint: Chest Pain Time Seen by Provider: 03/07/21 15:33 - History of Present Illness Initial comments: Dictation was produced using [employer] dictation software. please excuse any grammatical, word or spelling errors. Chief Complaint: 45-year-old male presents to the emergency department for chest pain History of Present Illness: 45-year-old male he was just admitted to observation all days ago for chest pain. He was just discharged yesterday. Patient states he's been having chest symptoms for the last hour. States it is substernal and like an ache. Denies any radiation of symptoms to her shoulder and jaw. He does report associated diaphoresis. He states he is having mild symptoms cur rently. Patient was admitted to observation 2 days ago. He was in the hospital observation unit for one night. It sort of troponins and cardiology evaluation. He is discharged with blood pressure medications and plans to get outpatient cardiac stress test. Patient states that he was given an appointment in 2 weeks every states that he couldn't wait that long. Currently lives with a friend. The ROS documented in this emergency department record has been reviewed and confirmed by me. Those systems with pertinent positive or negative responses have been documented in the HPI. All other systems are other negative and/or noncontributory. PHYSICAL EXAM: General Impression: Alert and oriented x3, not in acute distress HEENT: Normocephalic atraumatic, extra-ocular movements intact, pupils equal and reactive to light bilaterally, mucous membranes moist. Cardiovascular: Heart regular rate and rhythm Chest: Able to complete full sentences, no retractions, no tachypnea Abdomen: abdomen soft, non-tender, non-distended, no organomegaly Musculoskeletal: Pulses present and equal in all extremities, no peripheral edema Motor: no focal deficits noted Neurological: CN II-XII grossly intact, no focal motor or sensory deficits noted Skin: Intact with no visualized rashes Psych: Normal affect and mood ED course: 45-year-old male presents to the emergency department for atypical chest pain with typical features. Laboratory evaluation obtained. Mild leukocytosis 12.2. Rest of CBC is within acceptable limits. Metabolic panel was within acceptable limits. Troponin is negative. Chest x-ray shows no acute processes. Patient is reevaluated at 5:15 PM. She still states that he does have some mild symptoms. Given that patient does not have any recent stress tests or cardiac cath there was still concern that patient has coronary artery disease and his presentation is concerning for acute coronary syndrome. Discussed disposition options. Patient preferred to be admitted for serial troponins and cartilage a consultation. Patient be admitted to [facility] hospitalist group. EKG interpretation: Ventricular rate 65, normal sinus rhythm, CO interval 146, QRS 80, QTC 409. No CO prolongation, no QTC prolongation, no ST or T-wave changes noted. T-wave inversion noted at lead 3. This appears to be new compared to EKG from 2 days ago. There does appear to be more of a hyperacuity to his T waves in leads V1 and V2. Overall this EKG is nonspecific. - Related Data Previous Rx's Medication Instructions Recorded Omeprazole [PriLOSEC] 40 mg PO AC-BRKFST #14 capsule. 03/06/21 RX: Losartan [Cozaar] 50 mg PO BID #30 tab 03/06/21 Allergies Allergy/AdvReac Type Severity Reaction Status Date / Time tramadol Allergy Severe Itching Verified 03/07/21 16:28 Review of Systems ROS Statement: Those systems with pertinent positive or pertinent negative responses have been documented in the HPI. ROS Other: All systems not noted in ROS Statement are negative. Past Medical History Past Medical History: Hyperlipidemia, Hypertension Additional Past Medical History / Comment(s): Recent bronchitis History of Any Multi-Drug Resistant Organisms: None Reported Past Surgical History: No Surgical Hx Reported Past Anesthesia/Blood Transfusion Reactions: No Reported Reaction Additional Past Anesthesia/Blood Transfusion Reaction / Comment(s): Pt has never had surgery. Past Psychological History: Anxiety, Bipolar, Depression, Panic Disorder Smoking Status: Current every day smoker Past Alcohol Use History: Occasional Past Drug Use History: Marijuana - Past Family History Father Family Medical History: Myocardial Infarction (MT) Additional Family Medical History / Comment(s): Father of a MT at the age of 41 yrs. Mother Family Medical History: Diabetes Mellitus Course Vital Signs 03/07/21 16:29 Pulse Rate 62 Respiratory 20 Rate Blood Pressure 184/95 O2 Sat by Pulse 97 Oximetry Medical Decision Making - Lab Data Result diagrams: 03/07/21 16:25 03/07/21 16:25 Lab Results 03/07/21 03/07/21 03/07/21 Range/Units 16:25 16:25 16:25 WBC 12.2 H (3.8-10.6) k/uL RBC 4.82 (4.30-5.90) m/uL Hgb 14.8 (13.0-17.5) gm/dL Hct 42.8 (39.0-53.0) % MCV 88.7 (80.0-100.0) fL MCH 30.7 (25.0-35.0) pg MCHC 34.6 (31.0-37.0) g/dL RDW 12.9 (11.5-15.5) % Plt Count 264 (150-450) k/uL MPV 7.5 Neutrophils % 76 % Lymphocytes % 18 % Monocytes % 4 % Eosinophils % 1 % Basophils % 0 % Neutrophils # 9.2 H (1.3-7.7) k/uL Lymphocytes # 2.2 (1.0-4.8) k/uL Monocytes # 0.5 (0-1.0) k/uL Eosinophils # 0.1 (0-0.7) k/uL Basophils # 0.0 (0-0.2) k/uL Sodium 136 L (137-145) mmol/L Potassium 4.1 (3.5-5.1) mmol/L Chloride 103 (98-107) mmol/L Carbon Dioxide 24 (22-30) mmol/L Anion Gap 9 mmol/L BUN 15 (9-20) mg/dL Creatinine 0.81 (0.66-1.25) mg/dL Est GFR (CKD-EPI)AfAm >90 (>60 ml/min/1.73 sqM) Est GFR (CKD-EPI)NonAf >90 (>60 ml/min/1.73 sqM) Glucose 113 H (74-99) mg/dL Calcium 9.8 (8.4-10.2) mg/dL Troponin I <0.012 (0.000-0.034) ng/mL Disposition Clinical Impression: Chest pain Disposition: ADMITTED IP TO THIS HOSP Condition: Fair Referrals: Jorge Lopez MD [Primary Care Provider] - 1-2 days
[2021-03-07 16:36] LABS: Basophils % (A) 0 %; Eosinophils # (A) 0.1 k/uL (0-0.7); Eosinophils % (A) 1 %; HCT 42.8 % (39.0-53.0); HGB 14.8 gm/dL (13.0-17.5); Lymphocytes # (A) 2.2 k/uL (1.0-4.8); Lymphocytes % (A) 18 %; MCH 30.7 pg (25.0-35.0); MCHC 34.6 g/dL (31.0-37.0); MCV 88.7 fL (80.0-100.0); Mean Platelet Volume 7.5; Monocytes # (A) 0.5 k/uL (0-1.0); Monocytes % (A) 4 %; Neutrophils # (A) 9.2 k/uL (1.3-7.7); Neutrophils % (A) 76 %; Platelet Count 264 k/uL (150-450); RBC 4.82 m/uL (4.30-5.90); RDW 12.9 % (11.5-15.5); WBC 12.2 k/uL (3.8-10.6)
[2021-03-07 16:53] LABS: African American GFR (CKD) >90 (>60 ml/min/1.73 sqM); Anion Gap 9 mmol/L; Blood Urea Nitrogen 15 mg/dL (9-20); Calcium 9.8 mg/dL (8.4-10.2); Carbon Dioxide 24 mmol/L (22-30); Chloride 103 mmol/L (98-107); Glucose 113 mg/dL (74-99); Non-African American GFR(CKD) >90 (>60 ml/min/1.73 sqM); Potassium 4.1 mmol/L (3.5-5.1); Sodium 136 mmol/L (137-145)
--- NOTE | 2021-03-07 17:14 | XR ---
EXAMINATION TYPE: XR chest 1V portable DATE OF EXAM: 03/07/2021 COMPARISON: 03/05/2021 HISTORY: Chest pain TECHNIQUE: Single view FINDINGS: Heart is normal. Lungs are clear of infiltrate. There is no heart failure. There are no hil ar masses. There are chest leads. Bony thorax is intact. IMPRESSION: No active cardiopulmonary disease. Normal heart. No change.
[2021-03-07] MEDS ORDERED: NALOXONE 0.4 MG/ML 1 ML VIAL IV PRN (17:16)
[2021-03-07] MEDS ORDERED: NITROGLYCERIN SL TABS 0.4 MG TAB SUBLINGUAL PRN (17:18)
[2021-03-07] MEDS ORDERED: ASPIRIN 81 MG PO STA (17:18)
--- NOTE | 2021-03-07 20:43 | HP ---
HISTORY AND PHYSICAL DATE OF SERVICE: 03/07/2021 CHIEF COMPLAINT: Chest pain. HISTORY OF PRESENT ILLNESS: This 45-year-old gentleman with a past medical history of hypertension, hyperlipidemia, history of anxiety, bipolar, depression, being followed by Dr. Lopez in the outpatient setting, was having chest pain. The patient was apparently recently admitted to [facility] and was discharged with a possible diagnosis of esophagitis and gastritis. Now the patient is complaining of pain in the lower part of the chest which is rather sharp in character, without much radiation. The patient was admitted for further evaluation. The patient's father had premature heart disease at the age of 41. There is no history of any fever, rigor or chills at this time. PAST MEDICAL HISTORY: History of hypertension, hyperlipidemia, history of recent bronchitis, anxiety, bipolar, depression. HOME MEDICATIONS: Home medications prior to admission include Prilosec and Cozaar. ALLERGIES: ULTRAM. FAMILY HISTORY: History of diabetes mellitus in the family. SOCIAL HISTORY: Alcohol. Occasional THC. Smoking. REVIEW OF SYSTEMS: ENT: No diminished hearing. No diminished vision. CARDIOVASCULAR SYSTEM: As mentioned earlier. RESPIRATORY SYSTEM: As mentioned earlier. GI: As mentioned earlier. : No dysuria or retention. NERVOUS SYSTEM: No numbness, weakness. ALLERGY/IMMUNOLOGY: No asthma, hayfever. MUSCULOSKELETAL: As mentioned earlier. HEMATOLOGY/ONCOLOGY: No history of anemia. ENDOCRINE: No history of diabetes, hypothyroidism. CONSTITUTIONAL: As mentioned earlier. DERMATOLOGY: Negative. RHEUMATOLOGY: Negative. PSYCHIATRY: As mentioned earlier. PHYSICAL EXAMINATION: Patient alert and oriented x3. Pulse 70, blood pressure 168/87, respiration 18, temperature 98.7, pulse ox 95% on room air. HEENT: Conjunctivae normal. NECK: No jugular venous distention. CARDIOVASCULAR SYSTEM: S1, S2 muffled. RESPIRATORY SYSTEM: Breath sounds diminished at the bases. No rhonchi. No crackles. ABDOMEN: Soft, non-tender. No mass palpable. LEGS: No edema. No swelling. NERVOUS SYSTEM: Higher functions as mentioned earlier. Moves all 4 limbs. No focal motor or sensory deficit. LYMPHATICS: No lymph node palpable in neck, axillae or groin. SKIN: No ulcer, rash, bleeding. JOINTS: No active deforming arthropathy. LABS: WBC 12.2, sodium 136. Troponins are negative. EKG, which I reviewed personally, showed some ST-T changes, normal sinus rhythm, nonspecific. The chest x-ray showed no active pulmonary change. ASSESSMENT: 1. Chest pain; possible unstable angina. 2. Hypertension. 3. Hyperlipidemia. 4. History of recent bronchitis. 5. Anxiety, bipolar depression, panic disorder. 6. History of continued ongoing nicotine dependence. 7. History of tetrahydrocannabinol. 8. FULL CODE. RECOMMENDATIONS AND DISCUSSION: In this 45-year-old gentleman who presented with multiple complex medical issues, we will monitor the patient closely, continue the current medications, continue symptomatic treatment. Rule out myocardial infarction. Acute coronary syndrome protocol. Otherwise, home medications will be continued. Smoking cessation. Cardiology will be consulted. Prognosis is guarded because of multiple complex medical issues. I would also recommend a 2D echo with Doppler if it has been done previously. Further recommendations to follow. A copy of this dictation is being forwarded to Dr. Lopez, who is the primary physician. MMMONSTERL / KAREEMN: [id number] / MTDD
[2021-03-07] MEDS: NICOTINE 14MG/24HR PATCH TRANSDERM SCH (21:17)
[2021-03-07] MEDS: SODIUM CHLORIDE 0.9% 1,000 ML IV SCH (21:17)
[2021-03-07] MEDS: LOSARTAN 50 MG TAB PO SCH (21:18)
[2021-03-07 21:51] LABS: Appearance,Urine Clear (Clear); Bilirubin,Urine Negative (Negative); Blood,Urine Negative (Negative); Color,Urine Yellow; Glucose,Urine (UA) Negative (Negative); Ketones,Urine 1+ (Negative); Leukocyte Esterase,Urine Negative (Negative); Nitrite,Urine Negative (Negative); Protein,Urine Trace (Negative); Urobilinogen,Urine <2.0 mg/dL (<2.0)
[2021-03-07] MEDS: TEMAZEPAM 15 MG CAP PO PRN (21:53)
[2021-03-07 22:02] LABS: Amphetamine Screen,Urine Not Detected (NotDetected); Barbiturate Screen,Urine Not Detected (NotDetected); Benzodiazepines Screen,Urine Detected (NotDetected); Cocaine Screen,Urine Not Detected (NotDetected); Methadone Screen, Urine Not Detected (NotDetected); Opiate Screen,Urine Not Detected (NotDetected); Oxycodone Screen, Urine Not Detected (NotDetected); Phencyclidine Screen,Urine Not Detected (NotDetected); Tricyclic Antidepressant,Urine Not Detected (NotDetected); Urn Cannabinoid Scrn Detected (NotDetected)
[2021-03-08] MEDS ORDERED: ONDANSETRON 4 MG/2 ML VIAL IVP PRN (02:09)
[2021-03-08] MEDS: ALPRAZolam 0.25 MG TAB PO PRN ×2 (02:22→18:21)
--- NOTE | 2021-03-08 06:51 | P.PN ---
Progress Note - Text Patient is readmitted with chest discomfort and very high blood pressures. He had been admitted to observation unit 2 days back for the identical clinical situation. He was seen by me and nurse practitioner Piedad on the previous admission We started him on antihypertensive therapy in the ER on the previous admission His blood pressure was extremely high ,his cardiac enzymes were normal on the previous admission Our plan was to observe him in the hospital and get his blood pressure controlled prior to discharge and then follow-up with cardiology in 2 weeks We did not recommend a discharge to home However he was discharged home and asked to follow-up with me in 2 weeks
[2021-03-08] MEDS: PANTOPRAZOLE 40 MG TABLET PO SCH (08:50)
[2021-03-08] MEDS: NICOTINE 14MG/24HR PATCH TRANSDERM SCH (08:50)
[2021-03-08] MEDS: LOSARTAN 50 MG TAB PO SCH (08:50)
[2021-03-08] MEDS ORDERED: ASPIRIN 325 MG TAB PO SCH (09:00)
[2021-03-08 10:06] LABS: African American GFR (CKD) 123.3 (60.0-200.0); Anion Gap 9.4 mmol/L (4.00-12.00); Carbon Dioxide 26.6 mmol/L (21.6-31.8); Chol/HDL Ratio 5.59; LDL Cholesterol,Calculated 144.8 mg/dL (0.0-131.0); Non-African American GFR(CKD) 106.4 (60.0-200.0); Potassium 5.3 mmol/L (3.5-5.5); VLDL Calculation 43.2 mg/dL (5.00-40.00)
[2021-03-08] MEDS ORDERED: LOSARTAN 50 MG TAB PO STA (10:16)
[2021-03-08] MEDS ORDERED: amLODIPine 5 MG TAB PO SCH (10:30)
--- NOTE | 2021-03-08 10:35 | ECHOF ---
Referral Reason:chest pain MEASUREMENTS -------- HEIGHT: 170.2 cm WEIGHT: 74.8 kg BP: 190/83 RVIDd: 2.0 cm (< 3.3) IVSd: 1.1 cm (0.6 - 1.1) LVIDd: 3.7 cm (3.9 - 5.3) LVPWd: 1.2 cm (0.6 - 1.1) IVSs: 1.7 cm LVIDs: 2.2 cm LVPWs: 2.0 cm LAESV Index (A-L): 18.78 ml/m Ao Diam: 3.0 cm (2.0 - 3.7) AV Cusp: 1.6 cm (1.5 - 2.6) LA Diam: 3.1 cm (2.7 - 3.8) MV EXCURSION: 19.089 mm (> 18.000) MV EF SLOPE: 85 mm/s (70 - 150) EPSS: 0.9 cm MV E Juan: 0.87 m/s MV DecT: 287 ms MV A Juan: 0.98 m/s MV E/A Ratio: 0.89 AV maxP.47 mmHg AV meanP.38 mmHg AR PHT: 354 ms RAP: 5.00 mmHg RVSP: 14.31 mmHg FINDINGS -------- This was a technically adequate study. The left ventricular size is normal. There is borderline concentric left ventricular hypertrophy. Overall left ventricular systolic function is normal with, an EF between 55 - 60 %. The diastolic filling pattern is normal for the age of the patient 9.43. The right ventricle is normal in size. The left atrial size is normal. Normal LA size by volume 22+/-6 ml/m2. The right atrial size is normal. There is moderate aortic regurgitation. There is mild aortic stenosis present. Peak/mean gradient across the Aortic Valve is 23.47mmHg / 10.38mmHg. AOV is possible Bicuspid. The mitral valve is normal. The mitral valve leaflets are mildly thickened. There is trace mitral regurgitation. The tricuspid valve appears structurally normal. Trace tricuspid regurgitation present. Right lin tricular systolic pressure is normal at < 35 mmHg. There is no pulmonic regurgitation present. The aortic root size is normal. Normal inferior vena cava with normal inspiratory collapse consistent with estimated right atrial pre ssure of 5 mmHg. There is no pericardial effusion. CONCLUSIONS -------- 1. The left ventricular size is normal. 2. There is borderline concentric left ventricular hypertrophy. 3. Overall left ventricular systolic function is normal with, an EF between 55 - 60 %. 4. The diastolic filling pattern is normal for the age of the patient 9.43 5. There is mild aortic stenosis present. 6. Peak/mean gradient across the Aortic Valve is 23.47mmHg / 10.38mmHg. 7. AOV is possible Bicuspid. 8. The mitral valve leaflets are mildly thickened. 9. There is trace mitral regurgitation. 10. Trace tricuspid regurgitation present. 11. There is no pericardial effusion. GIS SOFTWARE ENGINEER: Venita Barksdale RDCS
[2021-03-08] MEDS: SODIUM CHLORIDE 0.9% 1,000 ML IV SCH ×3 (11:45→21:02)
--- NOTE | 2021-03-08 12:28 | CT ---
EXAMINATION TYPE: CT angio thor/abd pel aorta DATE OF EXAM: 03/08/2021 COMPARISON: X-ray chest 03/07/2021 HISTORY: chest pain, r/o dissection CT DLP: 901.6 mGycm. Automated Exposure Control for Dose Reduction was Utilized. CONTRAST: CT scan of the thorax, abdomen and pelvis is performed without and with IV Contrast, patient injected with 100 mL of Isovue 370. Three-dimensional reconstructions performed on an alternate workstation FINDINGS: There is some motion on exam. LUNGS: The lungs are showing some minimal strand-like densities at the right lung base likely due to scarring, there is no concerning parenchymal mass or nodule identified. Emphysematous changes are pre sent especially at the upper lobes There is no pleural effusion or pneumothorax seen. The tracheobr onchial tree is patent. MEDIASTINUM: There are no greater than 1 cm hilar or mediastinal lymph nodes. No pericardial effusi on is seen. OTHER: Aorta shows normal caliber. Mild atheromatous changes are present. There are 3 super aortic br anch vessels. No evident dissection. The celiac axis, superior mesenteric artery, renal arteries and inferior mesenteric artery patent LIVER/GB: No significant abnormality is appreciated. PANCREAS: No significant abnormality is seen. SPLEEN: No significant abnormality is seen. ADRENALS: No significant abnormality is seen. KIDNEYS: No significant abnormality is seen. BOWEL: No significant abnormality is seen. GENITAL ORGANS: No gross abnormality seen. LYMPH NODES: No greater than 1cm abdominal or pelvic lymph nodes are appreciated. OSSEOUS STRUCTURES: No significant abnormality is seen. OTHER: No significant additional abnormality is seen. IMPRESSION: No dissection or aortic aneurysm within the limitations of the exam
--- NOTE | 2021-03-08 12:35 | PN ---
PROGRESS NOTE Mr. Payne was discharged from the ER yesterday. His blood pressure control was suboptimal. He came back with chest pain. Chest pain has resolved. He smokes regularly. Uses marijuana. Drinks alcohol. He is disabled and learning disability and does not work. His pain is resolved. Blood pressure is still elevated. I am recommending a combination of losartan 100 mg and amlodipine 5 mg and recheck his blood pressure. His heart rate is in the 60s. Therefore, we will defer beta carlos. Clinical examination suggests that he has a short systolic murmur at the base and a soft diastolic murmur. Echo reveals possibility of bicuspid valve. I am recommending a CT angiogram to assess for ascending aorta for any aneurysm or dissection. Once blood pressure control is optimized, maybe in the next 24 hours, we can discharge him. However, we will do a CT angio today. The patient will be hydrated prior to the CT angiogram. I have advised him regarding the importance of refraining from alcohol, caffeine and tobacco. I will also add 20 mg of atorvastatin daily for him. Discussed my thoughts in detail with the patient. I will see him again and make sure blood pressure control is optimized. He will be on losartan 100 mg, amlodipine 5 mg, atorvastatin 20 mg and we will do a CT angiogram today. Echocardiogram revealed good systolic function with possible bicuspid aortic valve with moderate aortic regurgitation and mildly elevated velocity across aortic valve. MMODL / IJN: [id number] /
[2021-03-08] MEDS ORDERED: cloNIDine HCL 0.2 MG TAB PO SCH (13:30)
[2021-03-08] MEDS ORDERED: IOPAMIDOL CONTRAST (ORAL USE) VIAL PO PRN (16:16)
--- NOTE | 2021-03-08 17:27 | PN ---
PROGRESS NOTE DATE OF SERVICE: 03/08/2021 This 45-year-old gentleman admitted with chest pain and accelerated hypertension. The patient being closely monitored at this time. Medications adjusted. No chest pain. No palpitations. Thoracic aortic CT scan did not show acute abnormality. PHYSICAL EXAMINATION: Alert and oriented times three. Pulse 62, blood pressure 180/80, respiration 18, temperature 98.7, pulse ox 97% on room air. HEENT: Conjunctivae normal. NECK: No JVD. CARDIOVASCULAR: S1, S2 muffled. RESPIRATORY: Breath sounds diminished at the bases. No rhonchi. No crackles. ABDOMEN: Soft. Nontender. Legs: No edema. No swelling. LABS: WBC 6.2. Otherwise cholesterol is noted. THC positive. ASSESSMENT: 1. Chest pain possible unstable angina. 2. Accelerated hypertension, hypertensive urgency. 3. Hyperlipidemia. 4. History of recent bronchitis. 5. Anxiety/bipolar depression, panic disorder. 6. History of continued ongoing nicotine dependence. 7. History of THC. 8. FULL CODE. 9. Increased WBC present on admission. 10.Mild hyponatremia, present on admission. RECOMMENDATIONS AND DISCUSSION: I recommend to continue current medications, management and symptomatic treatment. Otherwise, at this time, repeat labs. Adjust medications. Closely follow with Cardiology. Possible stress test as an outpatient. Myocardial infarction has been ruled out. The prognosis guarded. Initiate Lipitor. Further recommendations to follow. Discussed with the patient. CORI / AVILA: [id number] /
[2021-03-08] MEDS ORDERED: amLODIPine 5 MG TAB PO STA (18:14)
[2021-03-08 18:21] LABS: African American GFR (CKD) >90 (>60 ml/min/1.73 sqM); Anion Gap 7 mmol/L; Blood Urea Nitrogen 13 mg/dL (9-20); Calcium 9.8 mg/dL (8.4-10.2); Carbon Dioxide 25 mmol/L (22-30); Chloride 105 mmol/L (98-107); Glucose 124 mg/dL (74-99); Non-African American GFR(CKD) 87 (>60 ml/min/1.73 sqM); Potassium 4.2 mmol/L (3.5-5.1); Sodium 137 mmol/L (137-145)
[2021-03-08] MEDS: cloNIDine HCL 0.2 MG TAB PO SCH ×2 (18:21→21:02)
[2021-03-08] MEDS: ATORVASTATIN 20 MG TAB PO SCH (21:02)
[2021-03-09] MEDS: PANTOPRAZOLE 40 MG TABLET PO SCH (06:33)
[2021-03-09 08:12] LABS: Basophils % (A) 0 %; Eosinophils # (A) 0.1 k/uL (0-0.7); Eosinophils % (A) 1 %; HCT 41.8 % (39.0-53.0); HGB 13.8 gm/dL (13.0-17.5); Lymphocytes # (A) 2.7 k/uL (1.0-4.8); Lymphocytes % (A) 29 %; MCH 29.9 pg (25.0-35.0); MCHC 32.9 g/dL (31.0-37.0); MCV 90.6 fL (80.0-100.0); Mean Platelet Volume 7.8; Monocytes # (A) 0.4 k/uL (0-1.0); Monocytes % (A) 4 %; Neutrophils # (A) 5.9 k/uL (1.3-7.7); Neutrophils % (A) 63 %; Platelet Count 249 k/uL (150-450); RBC 4.61 m/uL (4.30-5.90); RDW 13.5 % (11.5-15.5); WBC 9.4 k/uL (3.8-10.6)
[2021-03-09 08:26] LABS: African American GFR (CKD) >90 (>60 ml/min/1.73 sqM); Anion Gap 6 mmol/L; Blood Urea Nitrogen 15 mg/dL (9-20); Calcium 9.6 mg/dL (8.4-10.2); Carbon Dioxide 26 mmol/L (22-30); Chloride 104 mmol/L (98-107); Glucose 101 mg/dL (74-99); Non-African American GFR(CKD) >90 (>60 ml/min/1.73 sqM); Potassium 5.2 mmol/L (3.5-5.1); Sodium 136 mmol/L (137-145)
[2021-03-09] MEDS ORDERED: LOSARTAN 50 MG TAB PO SCH (09:00)
[2021-03-09] MEDS ORDERED: cloNIDine HCL 0.1 MG TAB PO SCH (09:00)
[2021-03-09] MEDS: SODIUM CHLORIDE 0.9% 1,000 ML IV SCH (09:02)
[2021-03-09] MEDS: NICOTINE 14MG/24HR PATCH TRANSDERM SCH (09:07)
[2021-03-09] MEDS: ASPIRIN 81 MG PO SCH (09:12)
[2021-03-09] MEDS: amLODIPine 5 MG TAB PO SCH ×2 (09:12→20:20)
[2021-03-09] MEDS: VALSARTAN 160 MG TAB PO SCH ×2 (09:12→20:20)
--- NOTE | 2021-03-09 13:14 | P.PN ---
Subjective Progress Note Date: 03/09/21 The patient is a 45-year-old male with past medical history of uncontrolled hypertension, dyslipidemia, anxiety, depression, and bipolar disorder, who was admitted to the hospital for uncontrolled hypertension and chest discomfort. He was evaluated in the emergency room several days back, however was discharged prior to adequate blood pressure control. The patient was interviewed and examined lying comfortably in bed. He states he has experienced a patient of dizziness and lightheadedness with his current medication regimen. He denies any more chest pain or chest pressure, however he is only ambulated up to the bathroom. No dyspnea or orthopnea. Echocardiogram reveals EF of 55-60% with moderate aortic regurgitation and mild aortic stenosis. Possible bicuspid aortic valve CT of the chest shows no dissection or aortic aneurysm GENERAL: Well-appearing, well-nourished and in no acute distress. NECK: Supple without JVD or thyromegaly. LUNGS: Breath sounds clear to auscultation bilaterally. Respiration equal and unlabored. No wheezes, rales or rhonchi. HEART: Regular rate and rhythm without rubs or gallops. S1 and S2 heard. Soft systolic murmur EXTREMITIES: Normal range of motion, no edema. No clubbing or cyanosis. Peripheral pulses intact and strong. VITALS: Blood pressure 179/87, pulse rate 64, respiratory rate 16, temperature 98.5F, SpO2 96% TELEMETRY: Sinus rhythm without arrhythmias overnight LABS: WBC 9.4 and hemoglobin 13.8, platelet 249, sodium 136, potassium 5.2, BUN 15, creatinine 0.92, LDL 144, triglycerides 216, HDL 41 IMPRESSION: Uncontrolled hypertension Chest pain, likely secondary to uncontrolled hypertension, ACS workup unremarkable Possible bicuspid aortic valve with moderate regurgitation and mild stenosis Dyslipidemia, start statin therapy Current smoker Hyperkalemia, continue to monitor electrolytes daily PLAN: Switch to valsartan 160 mg twice daily Increase amlodipine to 5 mg twice daily Discontinue clonidine Start atorvastatin 20 mg daily Further recommendations based on clinical course The patient has been seen and evaluated. Plan of care has been reviewed and agreed upon by Dr Swartz. Objective - Vital Signs Vital signs: Vital Signs Temp 98.5 F 03/09/21 09:05 Pulse 64 03/09/21 11:34 Resp 15 03/09/21 11:34 BP 180/81 03/09/21 11:34 Pulse Ox 97 03/09/21 11:34 Intake & Output 03/08/21 03/09/21 03/09/21 18:59 06:59 18:59 Intake Total 720 960 220 Balance 720 960 220 Intake: Oral 720 960 220 Other: # Voids 3 3 - Labs CBC & Chem 7: 03/09/21 06:44 03/09/21 06:44 Labs: Abnormal Lab Results - Last 24 Hours (Table) 03/08/21 03/09/21 Range/Units 18:02 06:44 Sodium 136 L (137-145) mmol/L Potassium 5.2 H (3.5-5.1) mmol/L Glucose 124 H 101 H (74-99) mg/dL
[2021-03-09] MEDS: ALPRAZolam 0.25 MG TAB PO PRN (16:10)
[2021-03-09] MEDS: cloNIDine HCL 0.1 MG TAB PO SCH (16:54)
--- NOTE | 2021-03-09 17:56 | PN ---
PROGRESS NOTE DATE OF SERVICE: 03/09/2021 This 45-year-old gentleman admitted with chest pain also had elevated blood pressure. No chest pain. No palpitations. No fever. Thoracic aortic CT was normal. Medication being adjusted at this time. PHYSICAL EXAMINATION: Alert and oriented x3. Pulse 70, blood pressure 180/90, respiration 18, temperature 98.3, pulse ox 99% on room air. HEENT: Conjunctivae normal. Oral mucosa moist. NECK: No jugular venous distention. No lymph node enlargement. CARDIOVASCULAR: S1, S2, muffled. No S3, no S4, RESPIRATORY: Diminished breath sounds at the bases. No rhonchi, no crackles. ABDOMEN: Soft, nontender. NERVOUS SYSTEM: No focal deficits. LABS: Sodium 130, potassium 5.2. Other labs are noted. ASSESSMENT: 1. Chest pain, possible unstable angina. 2. Accelerated hypertension, hypertensive urgency. 3. Hyponatremia. 4. Mild hyperkalemia. 5. Hyperlipidemia. 6. History of recent bronchitis. 7. Anxiety, bipolar depression, panic disorder. 8. History of continued ongoing nicotine dependence. 9. History of THC. 10.Increased WBC, present on admission, improved. 11.FULL CODE. RECOMMENDATIONS AND DISCUSSION: Recommend to continue current medications, continue symptomatic treatment. Otherwise, repeat labs tomorrow. Recommend low-potassium diet if the hyperkalemia persists. Otherwise, follow closely with Cardiology and further recommendations to follow. MMODL / KAREEMN: [id number] /
[2021-03-09] MEDS: ATORVASTATIN 20 MG TAB PO SCH (20:20)
[2021-03-09] MEDS: TEMAZEPAM 15 MG CAP PO PRN (23:03)
[2021-03-10] MEDS: PANTOPRAZOLE 40 MG TABLET PO SCH (06:35)
[2021-03-10] MEDS: ALPRAZolam 0.25 MG TAB PO PRN ×2 (06:37→15:59)
[2021-03-10 08:23] LABS: African American GFR (CKD) >90 (>60 ml/min/1.73 sqM); Anion Gap 6 mmol/L; Blood Urea Nitrogen 16 mg/dL (9-20); Calcium 9.7 mg/dL (8.4-10.2); Carbon Dioxide 28 mmol/L (22-30); Chloride 104 mmol/L (98-107); Glucose 99 mg/dL (74-99); Non-African American GFR(CKD) >90 (>60 ml/min/1.73 sqM); Potassium 4.8 mmol/L (3.5-5.1); Sodium 138 mmol/L (137-145)
[2021-03-10] MEDS: amLODIPine 5 MG TAB PO SCH ×2 (09:26→20:10)
[2021-03-10] MEDS: VALSARTAN 160 MG TAB PO SCH ×2 (09:26→20:09)
[2021-03-10] MEDS: cloNIDine HCL 0.1 MG TAB PO SCH (09:26)
[2021-03-10] MEDS: ASPIRIN 81 MG PO SCH (09:26)
[2021-03-10] MEDS: NICOTINE 14MG/24HR PATCH TRANSDERM SCH (09:26)
--- NOTE | 2021-03-10 11:30 | P.PN ---
Subjective Progress Note Date: 03/10/21 The patient is a 45-year-old male with past medical history of uncontrolled hypertension, dyslipidemia, anxiety, depression, and bipolar disorder, who was admitted to the hospital for uncontrolled hypertension and chest discomfort. He was evaluated in the emergency room several days back, however was discharged prior to adequate blood pressure control. The patient was interviewed and examined lying comfortably in bed. He denies anymore dizziness. He denies any more chest pain or chest pressure. No dyspnea or orthopnea. He does state he is stressed and anxious. 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 His blood pressure subsequently dropped to 117 systolic this morning from 180's. Echocardiogram reveals EF of 55-60% with moderate aortic regurgitation and mild aortic stenosis. Possible bicuspid aortic valve CT of the chest shows no dissection or aortic aneurysm GENERAL: Well-appearing, well-nourished and in no acute distress. NECK: Supple without JVD or thyromegaly. LUNGS: Breath sounds clear to auscultation bilaterally. Respiration equal and unlabored. No wheezes, rales or rhonchi. HEART: Regular rate and rhythm without rubs or gallops. S1 and S2 heard. Soft systolic murmur EXTREMITIES: Normal range of motion, no edema. No clubbing or cyanosis. Peripheral pulses intact and strong. VITALS: Blood pressure 117/70, pulse rate 65, respiratory rate 16, temperature 97.6F, SpO2 96% on room air TELEMETRY: Sinus rhythm without arrhythmias overnight LABS: sodium 138, potassium 4.8, BUN 16, creatinine 0.97 IMPRESSION: Uncontrolled hypertension Rebound hypertension, secondary to clonidine withdrawal Chest pain, likely secondary to uncontrolled hypertension, ACS workup unremarkable Possible bicuspid aortic valve with moderate regurgitation and mild stenosis Dyslipidemia, start statin therapy Current smoker Hyperkalemia, improved Anxiety, defer to primary provider PLAN: Continue ARB and calcium channel carlos Discontinue clonidine and do not resume Further recommendations based on clinical course The patient has been seen and evaluated. Plan of care has been reviewed and agreed upon by Dr Sawrtz. Objective - Vital Signs Vital signs: Vital Signs Temp 97.6 F 03/10/21 05:04 Pulse 65 03/10/21 05:04 Resp 16 03/10/21 05:04 BP 117/70 03/10/21 05:04 Pulse Ox 96 03/10/21 05:04 Intake & Output 03/09/21 03/10/21 03/10/21 18:59 06:59 18:59 Intake Total 660 560 222 Balance 660 560 222 Intake: Oral 660 560 222 Other: # Voids 2 - Labs CBC & Chem 7: 03/09/21 06:44 03/10/21 07:19
--- NOTE | 2021-03-10 15:12 | PN ---
PROGRESS NOTE DATE OF SERVICE: 03/10/2021 This 45-year-old gentleman admitted with chest pain also had accelerated hypertension, hypertensive urgency. Patient is being closely monitored. Cardiology adjusted hypertensive medication. No chest pain. No palpitations. No fever. PHYSICAL EXAMINATION: Alert and oriented x3. Pulse 65, blood pressure 117/70, respirations 16, temperature 97.6, pulse ox 98% on room air. HEENT: Conjunctivae normal. Oral mucosa moist. NECK: No jugular venous distention. No lymph node enlargement. CARDIOVASCULAR: S1, S2, muffled. No S3, no S4, RESPIRATORY: Diminished breath sounds at the bases. No rhonchi, no crackles. ABDOMEN: Soft, nontender. LEGS: No edema, no swelling. NERVOUS SYSTEM: No focal deficits. LABS: CBC within normal limits. Sodium 130, potassium 4.8. Cholesterol is 229. ASSESSMENT: 1. Chest pain, possible unstable angina. 2. Accelerated hypertension and hypertensive urgency. 3. Hyponatremia. 4. Hyperlipidemia. 5. Mild hyperkalemia, improved. 6. History of recent bronchitis. 7. Anxiety, bipolar depression, panic disorder. 8. History of continued ongoing nicotine dependence. 9. History of THC. 10.Increased WBC, present on admission, improved. 11.FULL CODE. RECOMMENDATIONS AND DISCUSSION: I recommend to continue current medications, adjust medications. Stress test per Cardiology. Prognosis guarded because of multiple complex medical issues. Further recommendations to follow. MMODL / KAREEMN: [id number] /
[2021-03-10] MEDS: SERTRALINE 100 MG TAB PO SCH (15:57)
[2021-03-10] MEDS: TEMAZEPAM 15 MG CAP PO PRN (20:09)
[2021-03-10] MEDS: ATORVASTATIN 20 MG TAB PO SCH (20:10)
[2021-03-11] MEDS: ALPRAZolam 0.25 MG TAB PO PRN ×3 (03:29→22:33)
[2021-03-11] MEDS: PANTOPRAZOLE 40 MG TABLET PO SCH (06:23)
[2021-03-11] MEDS: NICOTINE 14MG/24HR PATCH TRANSDERM SCH (09:53)
[2021-03-11] MEDS: VALSARTAN 160 MG TAB PO SCH ×2 (09:54→22:34)
[2021-03-11] MEDS: SERTRALINE 100 MG TAB PO SCH (09:54)
[2021-03-11] MEDS: amLODIPine 5 MG TAB PO SCH ×2 (09:54→20:02)
[2021-03-11] MEDS: ASPIRIN 81 MG PO SCH (09:54)
--- NOTE | 2021-03-11 13:40 | P.PN ---
Subjective Progress Note Date: 03/11/21 HISTORY OF PRESENT ILLNESS: This 45-year-old male with past medical history of hypertension, hyperlipidemia, anxiety, depression, and bipolar disorder who was admitted to the hospital secondary to uncontrolled hypertension and chest discomfort. Patient examined this morning at the bedside. Patients blood pressure this morning at 4 AM was 157/90. Repeat blood pressure at 0800 was 180/85. However patient had not received his morning antihypertensives. Patient reports chest discomfort that is worse with deep inspiration and movement. Patient is complaining of urinary retention this morning and states he is unable to urinate. PHYSICAL EXAM: VITAL SIGNS: Reviewed. GENERAL: Well-developed in no acute distress. NECK: Supple. No JVD or thyromegaly LUNGS: Respirations even and unlabored. Lungs essentially clear to auscultation bilaterally. HEART: Regular rate and rhythm. S1 and S2 heard. Systolic murmur noted. EXTREMITIES: Normal range of motion. No clubbing or cyanosis. Peripheral pulses intact. No lower extremity edema ASSESSMENT: Uncontrolled hypertension Rebound hypertension, secondary to clonidine withdrawal Chest pain, likely secondary to uncontrolled hypertension, ACS workup unremarkable Possible bicuspid aortic valve with moderate regurgitation and mild stenosis Dyslipidemia, started on statin therapy Nicotine dependence Hyperkalemia, improved Anxiety PLAN: Continue current cardiac medications Continue to monitor blood pressure Further recommendations pending patient course Nurse practitioner note has been reviewed by physician. Signing provider agrees with the documented findings, assessment, and plan of care. Objective - Vital Signs Vital signs: Vital Signs Temp 98.7 F 03/11/21 08:00 Pulse 82 03/11/21 08:00 Resp 20 03/11/21 08:00 BP 180/85 03/11/21 08:00 Pulse Ox 92 L 03/11/21 08:00 Intake & Output 03/10/21 03/11/21 03/11/21 18:59 06:59 18:59 Intake Total 666 360 260 Output Total 120 Balance 666 240 260 Intake: Oral 666 360 260 Output: Urine 120 Other: # Voids 2 1 0 - Labs CBC & Chem 7: 03/09/21 06:44 03/10/21 07:19
[2021-03-11] MEDS ORDERED: SENNOSIDES 8.6 MG TAB PO PRN (13:48)
[2021-03-11] MEDS ORDERED: ACETAMINOPHEN TAB 325 MG TAB PO PRN (16:53)
--- NOTE | 2021-03-11 18:02 | PN ---
PROGRESS NOTE DATE OF SERVICE: 03/11/2021 This 45-year-old gentleman who was admitted with accelerated hypertension also had chest pain. Patient is also complaining of chest pain today. Cardiology following the patient closely. No fever, no cough. PHYSICAL EXAMINATION: Alert and oriented x3. Pulse 62, blood pressure 133/81, respirations 20, temperature 98.2, pulse ox 94% on room air. HEENT: Conjunctivae normal. Oral mucosa moist. NECK: No jugular venous distention. No lymph node enlargement. CARDIOVASCULAR: S1, S2, muffled. No S3, no S4, RESPIRATORY: Diminished breath sounds at the bases. A few scattered rhonchi. ABDOMEN: Soft. NERVOUS SYSTEM: No focal deficits. LABS: Sodium 130, potassium 4.8. ASSESSMENT: 1. Chest pain, possible unstable angina. 2. Accelerated hypertension with hypertensive urgency. 3. Hyponatremia. 4. Hyperlipidemia. 5. Mild hyperkalemia, improved. 6. History of recent bronchitis. 7. Anxiety, bipolar depression, panic disorder. 8. History of continued ongoing nicotine dependence. 9. History of THC. 10.Increased WBC present on admission, improved. 11.FULL CODE. RECOMMENDATIONS: Recommend to continue current management, continue symptomatic treatment. Otherwise, at this time continue the rest of the medications, beta blockers and antiplatelet agents. Follow up with Cardiology. Possible stress test. Guarded prognosis. Further recommendations to follow. MMODL / IJN: [id number] /
[2021-03-11] MEDS: ATORVASTATIN 20 MG TAB PO SCH (20:02)
[2021-03-11] MEDS: DOCUSATE 100 MG CAP PO SCH (20:02)
[2021-03-11] MEDS: TEMAZEPAM 15 MG CAP PO PRN (22:33)
[2021-03-12 06:15] VITALS: RESP 18
[2021-03-12] MEDS: PANTOPRAZOLE 40 MG TABLET PO SCH (06:50)
[2021-03-12 08:35] VITALS: BP 172/97; PULSE 70; TEMP 98
[2021-03-12] MEDS: NICOTINE 14MG/24HR PATCH TRANSDERM SCH (08:37)
[2021-03-12] MEDS: amLODIPine 5 MG TAB PO SCH (08:38)
[2021-03-12] MEDS: DOCUSATE 100 MG CAP PO SCH (08:38)
[2021-03-12] MEDS: ALPRAZolam 0.25 MG TAB PO PRN (08:38)
[2021-03-12] MEDS: SERTRALINE 100 MG TAB PO SCH (08:38)
[2021-03-12] MEDS: VALSARTAN 160 MG TAB PO SCH (08:38)
[2021-03-12] MEDS: ASPIRIN 81 MG PO SCH (08:38)
--- NOTE | 2021-03-12 11:46 | P.PN ---
Subjective Progress Note Date: 03/12/21 HISTORY OF PRESENT ILLNESS: This 45-year-old male with past medical history of hypertension, hyperlipidemia, anxiety, depression, and bipolar disorder who was admitted to the hospital secondary to uncontrolled hypertension and chest discomfort. Patient examined this morning at the bedside. Patients blood pressure this morning at 4 AM was 157/90. Repeat blood pressure at 0800 was 180/85. However patient had not received his morning antihypertensives. Patient reports chest discomfort that is worse with deep inspiration and movement. Patient is complaining of urinary retention this morning and states he is unable to urinate. 03/12/2021 Patient examined this morning the bedside. Patient denies any further episodes of chest pain or pressure. He denies shortness of breath. Blood pressure this morning 167/70. PHYSICAL EXAM: VITAL SIGNS: Reviewed. GENERAL: Well-developed in no acute distress. NECK: Supple. No JVD or thyromegaly LUNGS: Respirations even and unlabored. Lungs essentially clear to auscultation bilaterally. HEART: Regular rate and rhythm. S1 and S2 heard. Systolic murmur noted. EXTREMITIES: Normal range of motion. No clubbing or cyanosis. Peripheral pulses intact. No lower extremity edema ASSESSMENT: Uncontrolled hypertension Rebound hypertension, secondary to clonidine withdrawal Chest pain, likely secondary to uncontrolled hypertension, ACS workup unremarkable Possible bicuspid aortic valve with moderate regurgitation and mild stenosis Dyslipidemia, started on statin therapy Nicotine dependence Hyperkalemia, improved Anxiety PLAN: Continue current cardiac medications Continue to monitor blood pressure Add hydrochlorothiazide 25 mg daily Patient is stable for discharge home today. He is to follow up on an outpatient basis. Nurse practitioner note has been reviewed by physician. Signing provider agrees with the documented findings, assessment, and plan of care. Objective - Vital Signs Vital signs: Vital Signs Temp 98.0 F 03/12/21 08:00 Pulse 70 03/12/21 08:00 Resp 18 03/12/21 08:00 BP 172/97 03/12/21 08:00 Pulse Ox 97 03/12/21 08:00 Intake & Output 03/11/21 03/12/21 03/12/21 18:59 06:59 18:59 Intake Total 378 240 Balance 378 240 Weight 67.3 kg Intake: Oral 378 240 Other: Voiding Method Urinal Urinal # Voids 0 1 - Labs CBC & Chem 7: 03/09/21 06:44 03/10/21 07:19
--- NOTE | 2021-03-13 09:32 | DS ---
DISCHARGE SUMMARY DATE OF SERVICE: 03/12/2021 FINAL DIAGNOSES: 1. Chest pain, possible unstable angina. Myocardial function ruled out. 2. Accelerated hypertension, hypertensive urgency. 3. Hyponatremia. 4. Hyperlipidemia. 5. Mild hyperkalemia improved. 6. History of recent bronchitis. 7. Anxiety, bipolar depression, panic disorder. 8. History of continued ongoing nicotine dependence. 9. History of THC. 10.Increased WBC, present on admission, improved. 11.FULL CODE. DISCHARGE DISPOSITION: Patient will be discharged in stable condition with guarded prognosis. HISTORY OF PRESENT ILLNESS: This 45-year-old gentleman with past medical history of multiple medical problems was admitted with chest pain. Myocardial infarction ruled out. Blood pressure is controlled. Cardiology saw the patient and recommended outpatient stress test. The patient is being discharged in stable condition with guarded prognosis with the following advice and medications: On exam, vitals are stable. Cardiovascular S1, S2. Abdomen soft. Nervous system: No focal deficits. Please refer to Cardiology notes for further information. DISCHARGE ADVICE AND MEDICATIONS: 1. Diet is cardiac diet. 2. Activity limited until followup. 3. Follow up with Dr. Lopez 2-3 days. 4. Follow up with Cardiology as recommended. 5. Outpatient stress test per Cardiology. 6. Ecotrin 81 mg daily. 7. Diovan 320 mg p.o. daily. 8. Habitrol 14 daily. 9. Hydrochlorothiazide 25 mg p.o. daily. 10.Lipitor 20 mg q.h.s. 11.Nitro p.r.n. 12.Norvasc 10 mg p.o. daily. 13.Prilosec 40 mg daily. 14.Xanax 0.25 t.i.d. MMODL / IJN: [id number] /
== END 2021-03-12 13:16 | disposition home or self-care (01) | DRG 305 ==
LOC: EC 15:29 → 6NMEDSUR 17:17 → 3SCARD 03-08 17:52 → OBSVTOIN 03-11 07:34
PROVIDERS: ADMIT Hospitalist; ATTEND Hospitalist
DX: I16.0 Hypertensive urgency (principal); F31.30 Bipolar disorder, current episode depressed, mild or moderate severity, unspecified; E87.1 Hypo-osmolality and hyponatremia; I20.0 Unstable angina; E78.5 Hyperlipidemia, unspecified; I10 Essential (primary) hypertension; F41.0 Panic disorder [episodic paroxysmal anxiety]; I35.1 Nonrheumatic aortic (valve) insufficiency; F17.200 Nicotine dependence, unspecified, uncomplicated; E87.5 Hyperkalemia; F81.9 Developmental disorder of scholastic skills, unspecified; R33.9 Retention of urine, unspecified
CPT/HCPCS: 36415; 71045; 71275; 74174; 80048; 80061; 80306; 81003; 82150; 84484; 85025; 93005; 93306; 94760; 99285

== ENCOUNTER 2021-03-12 21:56 | Emergency (ER) | payer MEDICARE, OTHER ==
--- NOTE | 2021-03-12 22:39 | ED ---
Chest Pain HPI - General Chief Complaint: Chest Pain Stated Complaint: Chest Pain Time Seen by Provider: 03/12/21 22:10 Source: patient Mode of arrival: EMS Limitations: no limitations - Related Data Previous Rx's Medication Instructions Recorded Omeprazole [PriLOSEC] 40 mg PO AC-BRKFST #14 capsule. 03/06/21 Valsartan [Diovan] 320 mg PO DAILY #90 tab 03/10/21 amLODIPine [Norvasc] 10 mg PO DAILY #90 tablet 03/10/21 ALPRAZolam [Xanax] 0.25 mg PO TID PRN #8 tab 03/11/21 Aspirin 81 mg PO DAILY #30 chew 03/11/21 Atorvastatin [Lipitor] 20 mg PO HS #30 tab 03/11/21 Nicotine 14Mg/24Hr Patch [Habitrol] 1 patch TRANSDERM DAILY #30 patch 03/11/21 Nitroglycerin Sl Tabs [Nitrostat] 0.4 mg SUBLINGUAL Q5M PRN #20 tab 03/11/21 hydroCHLOROthiazide 25 mg PO DAILY #90 tablet 03/12/21 Allergies Allergy/AdvReac Type Severity Reaction Status Date / Time tramadol Allergy Severe Itching Verified 03/12/21 22:30 Review of Systems ROS Statement: Those systems with pertinent positive or pertinent negative responses have been documented in the HPI. ROS Other: All systems not noted in ROS Statement are negative. EKG Findings - EKG Comments: EKG Findings:: EKG is normal sinus rhythm 81 AK 138 QRS 84 QTc 434 Past Medical History Past Medical History: Chest Pain / Angina, Hyperlipidemia, Hypertension Additional Past Medical History / Comment(s): Recent bronchitis History of Any Multi-Drug Resistant Organisms: None Reported Past Surgical History: No Surgical Hx Reported Past Anesthesia/Blood Transfusion Reactions: No Reported Reaction Additional Past Anesthesia/Blood Transfusion Reaction / Comment(s): Pt has never had surgery. Past Psychological History: Anxiety, Bipolar, Depression, Panic Disorder Smoking Status: Current every day smoker Past Alcohol Use History: Occasional Past Drug Use History: Marijuana - Past Family History Father Family Medical History: Myocardial Infarction (MO) Additional Family Medical History / Comment(s): Father of a MO at the age of 41 yrs. Mother Family Medical History: Diabetes Mellitus General Exam Limitations: no limitations Course Vital Signs 03/12/21 22:16 Pulse Rate 68 Respiratory 18 Rate Blood Pressure 191/93 O2 Sat by Pulse 96 Oximetry Disposition Clinical Impression: Chest pain, Panic attack, Anxiety Disposition: HOME SELF-CARE Condition: Good Instructions (If sedation given, give patient instructions): Chest Pain (ED) Is patient prescribed a controlled substance at d/c from ED?: No Referrals: Jorge Lopez MD [Primary Care Provider] - 1-2 days
[2021-03-12] MEDS ORDERED: LORazepam 1 MG TAB PO STA (23:20)
[2021-03-12 23:28] VITALS: BP 168/82; PULSE 65; RESP 17; TEMP 98.3
== END 2021-03-12 23:28 | disposition home or self-care (01) ==
LOC: EC 21:56
DX: F41.0 Panic disorder [episodic paroxysmal anxiety] (principal); E78.5 Hyperlipidemia, unspecified; I10 Essential (primary) hypertension; F31.9 Bipolar disorder, unspecified; F17.200 Nicotine dependence, unspecified, uncomplicated; F12.90 Cannabis use, unspecified, uncomplicated; Z79.82 Long term (current) use of aspirin
CPT/HCPCS: 93005; 99285

== ENCOUNTER 2021-03-14 19:23 | Inpatient (IN) | payer MEDICARE, OTHER ==
--- NOTE | 2021-03-14 20:00 | ED ---
General Adult HPI - General Chief complaint: Chest Pain Stated complaint: possible overdose Time Seen by Provider: 03/14/21 19:58 Source: patient Mode of arrival: ambulatory Limitations: no limitations - History of Present Illness Initial comments: Patient presents to the ED stating that he developed central chest pain about an hour ago while at rest. Patient states that his symptoms began shortly after taking his first dose of BuSpar and Xanax. Patient states that he was recently prescribed these medications for anxiety. Patient denies having any other symptoms or complaints. Patient denies trauma or injury, fever or chills, headache, focal numbness/weakness/neuro deficit, radiation of his pain, neck/arm/jaw/back pain, pleuritic pain, dyspnea, cough or cold symptoms, palpitations, dizziness, nausea/vomiting/diaphoresis, abdominal pain, dysuria or urinary symptoms, leg or calf swelling or pain, or any other symptoms or complaints. - Related Data Home Medications Medication Instructions Recorded Confirmed Losartan Potassium 50 mg PO BID 03/14/21 03/14/21 Sertraline [Zoloft] 100 mg PO DAILY 03/14/21 03/14/21 busPIRone HCL [Buspar] See Taper PO DIRECTED 03/14/21 03/14/21 hydrOXYzine pamoate [hydrOXYzine 50 mg PO HS 03/14/21 03/14/21 PAMOATE] Previous Rx's Medication Instructions Recorded Omeprazole [PriLOSEC] 40 mg PO AC-BRKFST #14 capsule. 03/06/21 Valsartan [Diovan] 320 mg PO DAILY #90 tab 03/10/21 amLODIPine [Norvasc] 10 mg PO DAILY #90 tablet 03/10/21 ALPRAZolam [Xanax] 0.25 mg PO TID PRN #8 tab 03/11/21 Aspirin 81 mg PO DAILY #30 chew 03/11/21 Atorvastatin [Lipitor] 20 mg PO HS #30 tab 03/11/21 Nitroglycerin Sl Tabs [Nitrostat] 0.4 mg SUBLINGUAL Q5M PRN #20 tab 03/11/21 hydroCHLOROthiazide 25 mg PO DAILY #90 tablet 03/12/21 Allergies Allergy/AdvReac Type Severity Reaction Status Date / Time tramadol Allergy Severe Itching Verified 03/14/21 21:17 Review of Systems ROS Statement: Those systems with pertinent positive or pertinent negative responses have been documented in the HPI. ROS Other: All systems not noted in ROS Statement are negative. Past Medical History Past Medical History: Chest Pain / Angina, Hyperlipidemia, Hypertension Additional Past Medical History / Comment(s): Recent bronchitis History of Any Multi-Drug Resistant Organisms: None Reported Past Surgical History: No Surgical Hx Reported Past Anesthesia/Blood Transfusion Reactions: No Reported Reaction Additional Past Anesthesia/Blood Transfusion Reaction / Comment(s): Pt has never had surgery. Past Psychological History: Anxiety, Bipolar, Depression, Panic Disorder Smoking Status: Current every day smoker Past Alcohol Use History: Occasional Past Drug Use History: Marijuana - Past Family History Father Family Medical History: Myocardial Infarction (MD) Additional Family Medical History / Comment(s): Father of a MD at the age of 41 yrs. Mother Family Medical History: Diabetes Mellitus General Exam Limitations: no limitations General appearance: alert, in no apparent distress Head exam: Present: atraumatic, normocephalic Eye exam: Present: normal appearance, EOMI ENT exam: Present: mucous membranes moist Neck exam: Present: other (Trachea is in midline) Respiratory exam: Present: normal lung sounds bilaterally. Absent: respiratory distress, wheezes, rales, rhonchi, stridor, chest wall tenderness Cardiovascular Exam: Present: normal rhythm, tachycardia, normal heart sounds, other (Normal radial pulses bilaterally) GI/Abdominal exam: Present: soft. Absent: distended, tenderness, guarding Extremities exam: Present: other (Negative Homans sign bilaterally). Absent: tenderness, pedal edema, calf tenderness Neurological exam: Present: alert, oriented X3. Absent: motor sensory deficit Psychiatric exam: Present: normal affect, normal mood Skin exam: Present: warm, dry, intact, normal color Course Vital Signs 03/14/21 03/14/21 03/14/21 19:48 20:50 21:57 Temperature 98 F Pulse Rate 114 H 90 103 H Respiratory 20 18 18 Rate Blood Pressure 153/77 136/81 131/81 O2 Sat by Pulse 98 97 97 Oximetry - Reevaluation(s) Reevaluation #1: 03/14/21 22:10 Patient states that his pain has improved while in the ED, but he states that he still has mild chest discomfort. Patient denies development of any new symptoms while in the ED. Patient remains alert and breathing comfortably with a normal room air oxygen saturation. Patient is aware of his test results, and he agrees with heparin anticoagulation and hospital admission at this time. 03/14/21 22:19 Case, H&P, test results and ED management thus far were discussed with Dr. Ibarra (cardiology). He recommends calling him back of the patient's chest pain increases. He agrees with hospital admission with cardiology consultation. He has no further recommendations at this time. 03/14/21 22:23 Case, H&P, test results, ED management thus far and my discussion with Dr. Ibarra as above were discussed with Dr. Abrams. He accepts hospital admission. He has no further recommendations at this time. EKG Findings - EKG Comments: EKG Findings:: Sinus tachycardia, ventricular rate of 103 bpm, no ectopy, normal DE and QRS intervals, normal QT interval, normal axis, inferolateral ST and T- wave abnormality, lateral ST and T-wave abnormality appears new when compared to EKG from 03/12/2021 Medical Decision Making - Medical Decision Making Given the patient's EKG abnormalities/change and elevated troponin level, I jeremy pect that the patient's chest pain may be secondary to a non-ST elevation MD. Patient has no evidence of ST elevation on his EKG. Patient has been treated with oral aspirin, as well as IV heparin anticoagulation. Patient's d-dimer is negative. Patient states that his pain is improved while in the ED. Dr. Abrams has accepted hospital admission. Dr. Ibarra (cardiology) was consulted from the ED. - Lab Data Result diagrams: 03/14/21 20:28 03/14/21 20:28 Lab Results 03/14/21 03/14/21 03/14/21 Range/Units 20:28 20:28 20:28 WBC 10.5 (3.8-10.6) k/uL RBC 5.14 (4.30-5.90) m/uL Hgb 15.2 (13.0-17.5) gm/dL Hct 45.5 (39.0-53.0) % MCV 88.6 (80.0-100.0) fL MCH 29.6 (25.0-35.0) pg MCHC 33.5 (31.0-37.0) g/dL RDW 13.2 (11.5-15.5) % Plt Count 302 (150-450) k/uL MPV 8.6 Neutrophils % 54 % Lymphocytes % 35 % Monocytes % 6 % Eosinophils % 1 % Basophils % 1 % Neutrophils # 5.7 (1.3-7.7) k/uL Lymphocytes # 3.7 (1.0-4.8) k/uL Monocytes # 0.7 (0-1.0) k/uL Eosinophils # 0.1 (0-0.7) k/uL Basophils # 0.1 (0-0.2) k/uL PT 13.4 H (9.0-12.0) sec INR 1.3 H (<1.2) APTT 34.0 H (22.0-30.0) sec D-Dimer <0.17 (<0.60) mg/L FEU Sodium 133 L (137-145) mmol/L Potassium 4.1 (3.5-5.1) mmol/L Chloride 97 L (98-107) mmol/L Carbon Dioxide 24 (22-30) mmol/L Anion Gap 12 mmol/L BUN 5 L (9-20) mg/dL Creatinine 0.84 (0.66-1.25) mg/dL Est GFR (CKD-EPI)AfAm >90 (>60 ml/min/1.73 sqM) Est GFR (CKD-EPI)NonAf >90 (>60 ml/min/1.73 sqM) Glucose 122 H (74-99) mg/dL Calcium 10.6 H (8.4-10.2) mg/dL Magnesium 1.3 L (1.6-2.3) mg/dL Total Bilirubin 0.5 (0.2-1.3) mg/dL AST 40 (17-59) U/L ALT 36 (4-49) U/L Alkaline Phosphatase 87 (38-126) U/L Troponin I (0.000-0.034) ng/mL NT-Pro-B Natriuret Pep pg/mL Total Protein 7.9 (6.3-8.2) g/dL Albumin 5.0 (3.5-5.0) g/dL 03/14/21 03/14/21 Range/Units 20:28 20:28 WBC (3.8-10.6) k/uL RBC (4.30-5.90) m/uL Hgb (13.0-17.5) gm/dL Hct (39.0-53.0) % MCV (80.0-100.0) fL MCH (25.0-35.0) pg MCHC (31.0-37.0) g/dL RDW (11.5-15.5) % Plt Count (150-450) k/uL MPV Neutrophils % % Lymphocytes % % Monocytes % % Eosinophils % % Basophils % % Neutrophils # (1.3-7.7) k/uL Lymphocytes # (1.0-4.8) k/uL Monocytes # (0-1.0) k/uL Eosinophils # (0-0.7) k/uL Basophils # (0-0.2) k/uL PT (9.0-12.0) sec INR (<1.2) APTT (22.0-30.0) sec D-Dimer (<0.60) mg/L FEU Sodium (137-145) mmol/L Potassium (3.5-5.1) mmol/L Chloride (98-107) mmol/L Carbon Dioxide (22-30) mmol/L Anion Gap mmol/L BUN (9-20) mg/dL Creatinine (0.66-1.25) mg/dL Est GFR (CKD-EPI)AfAm (>60 ml/min/1.73 sqM) Est GFR (CKD-EPI)NonAf (>60 ml/min/1.73 sqM) Glucose (74-99) mg/dL Calcium (8.4-10.2) mg/dL Magnesium (1.6-2.3) mg/dL Total Bilirubin (0.2-1.3) mg/dL AST (17-59) U/L ALT (4-49) U/L Alkaline Phosphatase (38-126) U/L Troponin I 0.060 H* (0.000-0.034) ng/mL NT-Pro-B Natriuret Pep 38 pg/mL Total Protein (6.3-8.2) g/dL Albumin (3.5-5.0) g/dL - Radiology Data Radiology results: report reviewed (Chest x-ray: No active cardiopulmonary disease, normal heart, no change) Critical Care Time Critical Care Time: Yes Total Critical Care Time: 40 Disposition Clinical Impression: Chest pain, Hypomagnesemia, Elevated troponin Narrative: Suspected NSTEMI Disposition: ADMITTED IP TO THIS HOSP Condition: Stable Is patient prescribed a controlled substance at d/c from ED?: No Referrals: Jorge Lopez MD [Primary Care Provider] - 1-2 days Time of Disposition: 22:25
--- NOTE | 2021-03-14 20:36 | XR ---
EXAMINATION TYPE: XR chest 2V DATE OF EXAM: 03/14/2021 COMPARISON: 03/07/2021 HISTORY: Chest pain TECHNIQUE: 2 views FINDINGS: Heart and mediastinum are normal. Lungs are clear. Costophrenic angles are clear. There are chest leads. Bony thorax is intact. IMPRESSION: No active cardiopulmonary disease. Normal heart. No change.
[2021-03-14 20:59] LABS: Basophils # (A) 0.1 k/uL (0-0.2); Basophils % (A) 1 %; Eosinophils # (A) 0.1 k/uL (0-0.7); Eosinophils % (A) 1 %; HCT 45.5 % (39.0-53.0); HGB 15.2 gm/dL (13.0-17.5); Lymphocytes # (A) 3.7 k/uL (1.0-4.8); Lymphocytes % (A) 35 %; MCH 29.6 pg (25.0-35.0); MCHC 33.5 g/dL (31.0-37.0); MCV 88.6 fL (80.0-100.0); Mean Platelet Volume 8.6; Monocytes # (A) 0.7 k/uL (0-1.0); Monocytes % (A) 6 %; Neutrophils # (A) 5.7 k/uL (1.3-7.7); Neutrophils % (A) 54 %; Platelet Count 302 k/uL (150-450); RBC 5.14 m/uL (4.30-5.90); RDW 13.2 % (11.5-15.5); WBC 10.5 k/uL (3.8-10.6)
[2021-03-14 21:08] LABS: ALT 36 U/L (4-49); AST 40 U/L (17-59); African American GFR (CKD) >90 (>60 ml/min/1.73 sqM); Alkaline Phosphatase 87 U/L (38-126); Anion Gap 12 mmol/L; Blood Urea Nitrogen 5 mg/dL (9-20); Calcium 10.6 mg/dL (8.4-10.2); Carbon Dioxide 24 mmol/L (22-30); Chloride 97 mmol/L (98-107); Glucose 122 mg/dL (74-99); Magnesium 1.3 mg/dL (1.6-2.3); Non-African American GFR(CKD) >90 (>60 ml/min/1.73 sqM); Sodium 133 mmol/L (137-145); Total Bilirubin 0.5 mg/dL (0.2-1.3); Total Protein 7.9 g/dL (6.3-8.2)
[2021-03-14 21:12] LABS: Potassium 4.1 mmol/L (3.5-5.1)
[2021-03-14] MEDS ORDERED: MAGNESIUM SULFATE-D5W PMX 1 GM in DEXTROSE/WATER 1 100ML.BAG IVPB ONE (21:16)
[2021-03-14] MEDS ORDERED: ASPIRIN 81 MG PO STA (21:46)
[2021-03-14 21:48] LABS: D-Dimer <0.17 mg/L FEU (<0.60); INR 1.3 (<1.2); Prothrombin Time 13.4 sec (9.0-12.0)
[2021-03-14] MEDS ORDERED: HEPARIN SODIUM 1,000 UN/ML (10ML VL) IV ONE (22:00)
[2021-03-14] MEDS ORDERED: NITROGLYCERIN SL TABS 0.4 MG TAB SUBLINGUAL STA (22:03)
[2021-03-14] MEDS: HEPARIN SOD,PORK IN 0.45% NACL 25,000 UNIT in 0.45% NACL 1 250ML.BAG IV SCH (22:18)
[2021-03-14] MEDS ORDERED: Magnesium Replacement Protocol 1 EACH MISC MISCELLANE PRN ×2 (22:23→23:41)
[2021-03-14 22:53] LABS: Basophils # (A) 0.1 k/uL (0-0.2); Basophils % (A) 1 %; Eosinophils # (A) 0.2 k/uL (0-0.7); Eosinophils % (A) 2 %; HCT 44.6 % (39.0-53.0); HGB 15.3 gm/dL (13.0-17.5); Lymphocytes # (A) 3.8 k/uL (1.0-4.8); Lymphocytes % (A) 35 %; MCH 30.5 pg (25.0-35.0); MCHC 34.3 g/dL (31.0-37.0); MCV 88.9 fL (80.0-100.0); Mean Platelet Volume 8.3; Monocytes # (A) 0.7 k/uL (0-1.0); Monocytes % (A) 6 %; Neutrophils # (A) 6.1 k/uL (1.3-7.7); Neutrophils % (A) 55 %; Platelet Count 368 k/uL (150-450); RBC 5.02 m/uL (4.30-5.90); RDW 12.6 % (11.5-15.5); WBC 11.1 k/uL (3.8-10.6)
[2021-03-14] MEDS: SODIUM CHLORIDE 0.9% 1,000 ML IV SCH (23:11)
[2021-03-14 23:22] LABS: Prothrombin Time 10.6 sec (9.0-12.0)
[2021-03-14] MEDS ORDERED: Potassium Replacement Protocol 1 EACH MISC MISCELLANE PRN (23:41)
[2021-03-14 23:46] LABS: Partial Thromboplastin Time 112.4 sec (22.0-30.0)
[2021-03-15 00:04] LABS: Amphetamine Screen,Urine Not Detected (NotDetected); Barbiturate Screen,Urine Not Detected (NotDetected); Benzodiazepines Screen,Urine Detected (NotDetected); Cocaine Screen,Urine Not Detected (NotDetected); Methadone Screen, Urine Not Detected (NotDetected); Opiate Screen,Urine Not Detected (NotDetected); Oxycodone Screen, Urine Not Detected (NotDetected); Phencyclidine Screen,Urine Not Detected (NotDetected); Tricyclic Antidepressant,Urine Not Detected (NotDetected); Urn Cannabinoid Scrn Not Detected (NotDetected)
[2021-03-15 04:13] LABS: Basophils # (A) 0.1 k/uL (0-0.2); Basophils % (A) 1 %; Eosinophils # (A) 0.1 k/uL (0-0.7); Eosinophils % (A) 1 %; HCT 43.5 % (39.0-53.0); HGB 15.4 gm/dL (13.0-17.5); Lymphocytes # (A) 3.5 k/uL (1.0-4.8); Lymphocytes % (A) 39 %; MCH 31.4 pg (25.0-35.0); MCHC 35.3 g/dL (31.0-37.0); MCV 89.1 fL (80.0-100.0); Mean Platelet Volume 8.2; Monocytes # (A) 0.6 k/uL (0-1.0); Monocytes % (A) 7 %; Neutrophils # (A) 4.6 k/uL (1.3-7.7); Neutrophils % (A) 50 %; Platelet Count 311 k/uL (150-450); RBC 4.89 m/uL (4.30-5.90); RDW 12.6 % (11.5-15.5); WBC 9.2 k/uL (3.8-10.6)
[2021-03-15 04:28] LABS: INR 0.9 (<1.2); Partial Thromboplastin Time 30.1 sec (22.0-30.0); Prothrombin Time 10.2 sec (9.0-12.0)
[2021-03-15 04:29] LABS: ALT 33 U/L (4-49); AST 33 U/L (17-59); African American GFR (CKD) >90 (>60 ml/min/1.73 sqM); Albumin 4.7 g/dL (3.5-5.0); Alkaline Phosphatase 100 U/L (38-126); Anion Gap 10 mmol/L; Blood Urea Nitrogen 5 mg/dL (9-20); Calcium 10.4 mg/dL (8.4-10.2); Carbon Dioxide 24 mmol/L (22-30); Chloride 99 mmol/L (98-107); Glucose 110 mg/dL (74-99); Magnesium 1.9 mg/dL (1.6-2.3); Non-African American GFR(CKD) >90 (>60 ml/min/1.73 sqM); Potassium 4.1 mmol/L (3.5-5.1); Sodium 133 mmol/L (137-145); Total Bilirubin 0.4 mg/dL (0.2-1.3); Total Protein 7.1 g/dL (6.3-8.2)
[2021-03-15] MEDS ORDERED: HEPARIN SODIUM 1,000 UN/ML (10ML VL) IV PRN (06:00)
[2021-03-15] MEDS: HEPARIN SODIUM 1,000 UN/ML (10ML VL) IV PRN ×2 (06:43→14:23)
[2021-03-15 08:11] LABS: Basophils % (A) 1 %; Eosinophils # (A) 0.1 k/uL (0-0.7); Eosinophils % (A) 1 %; HCT 45.5 % (39.0-53.0); HGB 15.7 gm/dL (13.0-17.5); Lymphocytes # (A) 2.3 k/uL (1.0-4.8); Lymphocytes % (A) 30 %; MCH 30.8 pg (25.0-35.0); MCHC 34.5 g/dL (31.0-37.0); MCV 89.3 fL (80.0-100.0); Mean Platelet Volume 8.1; Monocytes # (A) 0.4 k/uL (0-1.0); Monocytes % (A) 6 %; Neutrophils # (A) 4.7 k/uL (1.3-7.7); Neutrophils % (A) 61 %; Platelet Count 328 k/uL (150-450); RBC 5.09 m/uL (4.30-5.90); RDW 12.6 % (11.5-15.5); WBC 7.6 k/uL (3.8-10.6)
[2021-03-15] MEDS ORDERED: amLODIPine 10 MG TAB PO SCH (09:00)
[2021-03-15] MEDS ORDERED: hydroCHLOROthiazide 25 MG TAB PO SCH (09:00)
[2021-03-15] MEDS: LOSARTAN 50 MG TAB PO SCH ×2 (09:44→21:19)
[2021-03-15] MEDS: SERTRALINE 100 MG TAB PO SCH (09:44)
[2021-03-15] MEDS: FAMOTIDINE 20 MG/2 ML VIAL IV SCH ×2 (09:47→21:19)
[2021-03-15] MEDS ORDERED: NITROGLYCERIN SL TABS 0.4 MG TAB SUBLINGUAL PRN ×2 (10:28→13:38)
[2021-03-15] MEDS ORDERED: SODIUM CHLORIDE 0.9% 1,000 ML in EMPTY BAG 1 BAG IV ONE (13:38)
[2021-03-15] MEDS ORDERED: ALPRAZolam 0.25 MG TAB PO PRN (13:38)
[2021-03-15] MEDS ORDERED: busPIRone HCl 5 MG TAB PO PRN (14:03)
[2021-03-15] MEDS ORDERED: TEMAZEPAM 15 MG CAP PO PRN (14:04)
[2021-03-15] MEDS: SODIUM CHLORIDE 0.9% 1,000 ML IV SCH (14:22)
--- NOTE | 2021-03-15 14:24 | CONS ---
CONSULTATION Mr. Payne is a 45-year-old male with known history of chronic tobacco use, prior history of alcohol intake which according to him he has not had any alcohol intake in about a month, history of hypertension, hyperlipidemia, who was recently in the hospital, discharged, went home and did not feel well, had some discomfort in the chest and came back. The discomfort is not always exertional pattern, is on and off. He denies any associated clear exertion in pattern to it. He has chronic dyspnea on exertion. He denies any dizziness or palpitation. No clear PND nor orthopnea. During his last hospitalization he underwent an echocardiogram that revealed a preserved left ventricular systolic function with questionable bicuspid aortic valve and trace mitral and tricuspid regurgitation. His coronary risk factors are remarkable for the history of smoking, history of hypertension and hyperlipidemia. MEDICATION: At the time of admission included aspirin, Lipitor 20 mg daily, potassium, Valsartan 320 mg daily, amlodipine 10 mg daily, buspirone, hydrochlorothiazide 25 mg daily. REVIEW OF SYSTEMS: RESPIRATORY SYSTEM: Had dyspnea on exertion, occasional cough, no wheezing. GI SYSTEM: No recent GI bleeding, no peptic ulcer disease. SYSTEM: No dysuria or hematuria. NERVOUS SYSTEM: No stroke or seizure. PHYSICAL EXAMINATION: A 45-year-old male, alert, oriented, no apparent distress. Blood pressure 128/79 with a heart rate in the 70s. HEAD: Normocephalic. EYES: Sclerae anicteric. NECK: Good upstroke, no bruit, no venous distention. LUNGS: Clear to auscultation with decreased air exchange bilaterally. No wheezes. HEART: Regular rate and rhythm S1, S2. No S3. No rub. ABDOMEN: Soft, nontender, positive bowel sounds, no organomegaly. EXTREMITIES: No edema. Intact pulses. LAB DATA: Lab data revealed a troponin of 0.055 and 0.046. Of note that during his last admission his troponin was 0.060. His BUN and creatinine 5 and 0.78, hemoglobin 15.7. His EKG shows a sinus mechanism, rate of 103, normal axis and intervals with nonspecific ST-T wave changes. His chest x-ray shows no acute infiltrate. IMPRESSION: 1. Symptoms of chest discomfort of unclear etiology in a patient with history of hypertension, chronic tobacco use. 2. History of smoking. 3. History of hypertension. 4. Hyperlipidemia. 5. History of bipolar disorder. 6. Questionable bicuspid aortic valve. RECOMMENDATION: In view of his recurrent symptoms and his readmission, I have recommended proceeding with coronary angiography to assess his status and guide his treatment. The rationale behind the procedures, its risks and the complications were discussed with the patient who is in full understanding and agreement. The patient will be tentatively scheduled to undergo the procedure tomorrow and depending on the results of testing, further recommendation will be made. Thank you for this consult. We will follow with you. MMODL / IJN: [id number] /
[2021-03-15] MEDS ORDERED: amLODIPine 5 MG TAB PO STA (14:42)
--- NOTE | 2021-03-15 14:55 | HP ---
HISTORY AND PHYSICAL DATE OF SERVICE: 03/15/2021 CHIEF COMPLAINT: Chest discomfort. HISTORY OF PRESENT ILLNESS: This 45-year-old gentleman with a past medical history of multiple medical problems including history of hypertension, hyperlipidemia, history of recent bronchitis, anxiety, bipolar depression, panic disorder, being followed by Dr. Lopez. Patient was recently admitted with chest pain. Myocardial infarction ruled out. Cardiology saw the patient. The patient also had hypertensive urgency during that time. Blood pressure was corrected and the patient went home. Currently the patient is complaining of severe chest pain which is heavy in character. prior to the admission. The patient was taking BuSpar and Xanax. The patient is complaining of some mild abdominal discomfort also. There is no history of fever, rigors. No headache, loss of consciousness, seizures. After admission, the EKG which I reviewed personally showed sinus tachycardia and ST-T changes and sodium was 133 and troponin was 0.055 and 0.046 indicating acute non starch treating assistant myocardial infarction. PAST MEDICAL HISTORY: History of hypertension, hyperlipidemia, history of recent bronchitis, anxiety, bipolar depression, panic disorder. HOME MEDICATIONS: 1. Hydrochlorothiazide 25 mg daily. 2. Hydroxyzine 50 mg q.h.s. 3. Buspar as before and p.r.n. 4. Norvasc 10 mg daily. 5. Diovan 320 mg daily. 6. Zoloft 100 mg daily. 7. Prilosec 40 mg daily. 8. Nitrostat 0.4 sublingually p.r.n. 9. Losartan 50 mg p.o. b.i.d. 10.Lipitor 80 mg q.h.s. 11.Aspirin 81 mg p.o. daily. 12.Xanax 0.5 t.i.d. p.r.n. ALLERGIES: ULTRAM. FAMILY HISTORY: History of diabetes in the family and father of myocardial infarction at age of 40 years. SOCIAL HISTORY: History of smoking, occasional alcohol and THC. REVIEW OF SYSTEMS: ENT No history of diminished hearing or vision. CARDIOVASCULAR As mentioned earlier. RESPIRATORY No cough, no hemoptysis. GI As mentioned earlier. No dysuria or hematuria. NERVOUS No numbness or weakness. ALLERGY/IMMUNOLOGY No asthma or hayfever. MUSCULOSKELETAL As mentioned earlier. HEMATOLOGY/ONCOLOGY Negative. ENDOCRINE No history of diabetes or hypothyroidism. CONSTITUTIONAL As mentioned earlier. DERMATOLOGY Negative. RHEUMATOLOGY Negative, PSYCHIATRY As mentioned earlier. PHYSICAL EXAMINATION: Alert and oriented x3. Pulse 96, blood pressure 150/84, respiration 18, temperature normal, pulse ox 98% on room air. NECK: No jugular venous distention. No lymph node enlargement. CARDIOVASCULAR: S1, S2, muffled. No S3, no S4, RESPIRATORY: Diminished breath sounds at the bases. No rhonchi, no crackles. ABDOMEN: Soft, mild diffuse discomfort. No guarding, no rigidity. No mass palpable. No ascites. Bowel sounds present. LEGS: No edema, no swelling. NERVOUS SYSTEM: Higher functions mentioned earlier. Moves all four limbs. No focal motor or sensory deficits. LYMPHATICS: No lymph node in neck or axilla. SKIN: No rash. JOINTS: No active deforming arthropathy. LABS: CBC within normal. Sodium 138, potassium 4.1, troponin 0.6. ASSESSMENT: 1. Chest pain, possible acute vrn-GL-vlllkqb-elevation myocardial infarction with troponin 0.052. 2. Hyponatremia. 3. History of hypertension. 4. History of hyperlipidemia. 5. History of recent hypertensive urgency. 6. History of recent bronchitis. 7. Anxiety, bipolar depression, panic disorder. 8. History of continued nicotine dependence. 9. History of THC. 10.FULL CODE. RECOMMENDATION: In this 45-year-old gentleman who presented with multiple complex medical issues, we will monitor the patient closely, continue the current management and symptomatic treatment. Otherwise, follow closely with cardiology, beta blockers, antiplatelet agents, possible cardiac cath. Prognosis guarded because of multiple complex medical issues. Further recommendations to follow. MMODL / IJN: [id number] /
[2021-03-15] MEDS: ALPRAZolam 0.5 MG TAB PO PRN (17:16)
[2021-03-15] MEDS: ATORVASTATIN 20 MG TAB PO SCH (21:20)
[2021-03-15] MEDS: hydrOXYzine pamoate 25 MG CAP PO SCH (21:20)
[2021-03-15] MEDS: METOPROLOL TARTRATE 25 MG TAB PO SCH (21:20)
[2021-03-16] MEDS: SODIUM CHLORIDE 0.9% 1,000 ML IV SCH ×2 (01:54→12:45)
[2021-03-16] MEDS: HEPARIN SOD,PORK IN 0.45% NACL 25,000 UNIT in 0.45% NACL 1 250ML.BAG IV SCH ×2 (01:56→01:58)
[2021-03-16] MEDS ORDERED: ATORVASTATIN 80 MG TAB PO ONE (05:00)
[2021-03-16] MEDS ORDERED: ASPIRIN 325 MG TAB PO ONE (05:00)
[2021-03-16] MEDS: PANTOPRAZOLE 40 MG TABLET PO SCH (06:21)
[2021-03-16] MEDS ORDERED: HEPARIN SODIUM,PORCINE 10,000 UNIT in SODIUM CHLORIDE 0.9% 1,000 ML IRRIGATION PRN (07:00)
[2021-03-16] MEDS ORDERED: HEPARIN SODIUM,PORCINE 2,500 UNIT in SODIUM CHLORIDE 0.9% 250 ML IRRIGATION PRN (07:00)
[2021-03-16 08:50] LABS: Basophils % (A) 0 %; Eosinophils # (A) 0.1 k/uL (0-0.7); Eosinophils % (A) 2 %; HCT 41.9 % (39.0-53.0); HGB 14.4 gm/dL (13.0-17.5); Lymphocytes # (A) 2.6 k/uL (1.0-4.8); Lymphocytes % (A) 35 %; MCH 30.9 pg (25.0-35.0); MCHC 34.4 g/dL (31.0-37.0); MCV 89.7 fL (80.0-100.0); Mean Platelet Volume 8.5; Monocytes # (A) 0.4 k/uL (0-1.0); Monocytes % (A) 6 %; Neutrophils # (A) 4.2 k/uL (1.3-7.7); Neutrophils % (A) 56 %; Platelet Count 290 k/uL (150-450); RBC 4.67 m/uL (4.30-5.90); RDW 12.6 % (11.5-15.5); WBC 7.5 k/uL (3.8-10.6)
[2021-03-16] MEDS ORDERED: VALSARTAN 160 MG TAB PO SCH (09:00)
[2021-03-16 09:10] LABS: African American GFR (CKD) >90 (>60 ml/min/1.73 sqM); Anion Gap 6 mmol/L; Blood Urea Nitrogen 7 mg/dL (9-20); Calcium 9.9 mg/dL (8.4-10.2); Carbon Dioxide 26 mmol/L (22-30); Chloride 101 mmol/L (98-107); Glucose 103 mg/dL (74-99); Non-African American GFR(CKD) >90 (>60 ml/min/1.73 sqM); Potassium 5.1 mmol/L (3.5-5.1); Sodium 133 mmol/L (137-145)
[2021-03-16] MEDS: METOPROLOL TARTRATE 25 MG TAB PO SCH ×2 (10:12→19:31)
[2021-03-16] MEDS: SERTRALINE 100 MG TAB PO SCH (10:12)
[2021-03-16] MEDS: LOSARTAN 50 MG TAB PO SCH ×2 (10:12→19:31)
[2021-03-16] MEDS: amLODIPine 5 MG TAB PO SCH (10:12)
[2021-03-16] MEDS: FAMOTIDINE 20 MG/2 ML VIAL IV SCH ×2 (10:13→19:30)
[2021-03-16] MEDS ORDERED: VERAPAMIL 2.5 MG/ML 2 ML AMP ONE (12:25)
[2021-03-16] MEDS ORDERED: LIDOCAINE 1% INJ 10MG/ML (20 ML MDV) ONE (12:26)
[2021-03-16 12:34] LABS: Glucose,Whole Blood 105 mg/dL (75-99)
[2021-03-16] MEDS ORDERED: IV FLUID CONTINUATION 1,000 ML IV ONE (12:48)
[2021-03-16] MEDS ORDERED: HEPARIN SODIUM 1,000 UN/ML (10ML VL) ONE (12:57)
[2021-03-16] MEDS ORDERED: fentaNYL (PF) 50 MCG/ML 2 ML AMP ONE (12:57)
[2021-03-16] MEDS ORDERED: fentaNYL (PF) 50 MCG/ML 2 ML AMP IVP ONE (13:30)
[2021-03-16] MEDS ORDERED: LIDOCAINE 1% INJ 10MG/ML (20 ML MDV) SQ ONE (13:31)
[2021-03-16] MEDS ORDERED: VERAPAMIL SYRINGE (5 MG/10 ML) INTRAARTER ONE (13:33)
[2021-03-16] MEDS ORDERED: HEPARIN SODIUM 1,000 UN/ML (10ML VL) IV ONE (13:36)
[2021-03-16] MEDS ORDERED: IOPAMIDOL-370 125ML BTL INJ ONE (13:45)
[2021-03-16] MEDS ORDERED: RX INFO: IV CONTRAST WAS GIVEN 1 EACH MISC MISCELLANE PRN (13:52)
[2021-03-16] MEDS ORDERED: SODIUM CHLORIDE 0.9% 1,000 ML IV SCH (14:00)
[2021-03-16] MEDS: ATORVASTATIN 20 MG TAB PO SCH (14:08)
[2021-03-16] MEDS: ALPRAZolam 0.5 MG TAB PO PRN ×2 (14:08→23:26)
--- NOTE | 2021-03-16 16:54 | CE ---
CARDIAC ELECTROPHYSIOLOGY REPORT Mr. Payne is a 45-year-old male with known history of hypertension, hyperlipidemia, and chronic tobacco use, who presented with symptoms of chest discomfort, dyspnea, and mild troponin elevation. He had no significant EKG changes but because of his symptoms and presentation, recommendation was made regarding cardiac catheterization. The procedure as well as the risks and the complications were discussed with the patient, who was in full understanding and agreement. PROCEDURE DETAILS: Patient was brought to denture laboratory technician in a fasting semi-sedated state, after receiving fentanyl and Benadryl and achieving moderate conscious sedated state, using Xylocaine anesthesia and Seldinger technique, a 6-Tuvaluan sheath was introduced in the right radial artery. Selective right and left coronary angiography performed using 5-Tuvaluan 3.5 bend right and left Stacy catheters. Multiple views of the coronary arteries including hemiaxial views were obtained. Following that, a 5-Tuvaluan tight pigtail catheter was introduced in the left ventricle and a 30-degree HUANG view of the left ventricle was obtained. Following that, catheter and sheath were removed. Hemostasis was obtained with deployment of a TR band. There was no immediate complication. Patient was returned to his room in stable condition. Of note, the patient received 3500 units of intravenous heparin as well as intra-arterial verapamil. FINDINGS: LEFT MAIN: This is a short size vessel, almost nonexistent, bifurcating into LAD and left circumflex. Left main coronary artery has no evidence of high-grade stenosis. LEFT ANTERIOR DESCENDING ARTERY: This is a large-sized vessel reaches towards the apex. Tapers down distally giving rise to a large proximal diagonal branch. The left anterior descending artery as well as branches have no evidence of obstructive coronary artery disease. LEFT CIRCUMFLEX: This is a large dominant vessel giving rise to a large proximal obtuse marginal branch distally bifurcating into PDA and posterolateral segment and branches. The left circumflex as well as branches have no evidence of obstructive coronary artery disease. RIGHT CORONARY ARTERY: The right coronary artery is a small size vessel that gives rise to a small PDA distally. The right coronary artery as well as branches have no evidence of obstructive coronary artery disease. LEFT VENTRICULOGRAM: Left ventriculogram was performed in 30-degree HUANG view and revealed normal left ventricular size and systolic function. Ejection fraction 60%. There was no significant mitral regurgitation. HEMODYNAMICS: There was no gradient across the aortic valve. The left end-diastolic pressure was 14 mmHg. CONCLUSION: 1. Normal coronary arteries. 2. Normal left ventricular size and systolic function. RECOMMENDATIONS: In view of findings and anatomy, I recommend continued medical therapy with aggressive coronary risk modifications that have been initiated. I see no evidence to suggest significant coronary artery disease. Those findings and recommendations were discussed with the patient who is in full understanding and agreement. MMODL / IJN: [id number] /
[2021-03-16] MEDS: hydrOXYzine pamoate 25 MG CAP PO SCH (19:31)
--- NOTE | 2021-03-16 20:51 | PN ---
PROGRESS NOTE DATE OF SERVICE: 03/16/2021 This 45-year-old gentleman who was admitted with chest pain had possible acute non-ST- segment-elevation myocardial infarction. Cardiology performed a cardiac cath which showed normal coronary arteries. No chest pain. No palpitations. No fever. PHYSICAL EXAMINATION: Alert and oriented x3. Pulse 68. Blood pressure 149/77, respiration 18, temperature 98.2, pulse ox 94% on room air. HEENT: Conjunctivae normal. NECK: No JVD. CARDIOVASCULAR: S1, S2 muffled. RESPIRATORY: Breath sounds diminished in the bases. No rhonchi. No crackles. ABDOMEN: Soft. Nontender. NERVOUS SYSTEM: No focal deficits. LABORATORY DATA: CBC within normal limits. ASSESSMENT: 1. Chest pain possible acute ztr-MV-scqkhbl-elevation myocardial infarction with troponin 0.052 status post cardiac catheterization, normal coronary arteries, possible coronary vasospasm. 2. Hyponatremia. 3. Hypertension. 4. Hyperlipidemia. 5. History of recent hypertensive urgency. 6. History of recent bronchitis. 7. Anxiety, bipolar depression, panic disorder. 8. History of continued nicotine dependence. 9. History of THC. 10.FULL CODE. RECOMMENDATIONS AND DISCUSSION: Recommend to continue current medications, management and symptomatic treatment. Continue the beta blockers. Continue with antiplatelet agents. Monitor blood pressure closely. Closely follow with Cardiology. Further recommendations to follow. MMODL / IJN: [id number] /
[2021-03-17 04:11] VITALS: RESP 16
[2021-03-17] MEDS: PANTOPRAZOLE 40 MG TABLET PO SCH (06:13)
[2021-03-17 08:16] VITALS: BP 154/89; PULSE 80; TEMP 98.4
[2021-03-17] MEDS: METOPROLOL TARTRATE 25 MG TAB PO SCH (08:16)
[2021-03-17] MEDS: amLODIPine 5 MG TAB PO SCH (08:16)
[2021-03-17] MEDS: SERTRALINE 100 MG TAB PO SCH (08:16)
[2021-03-17] MEDS: LOSARTAN 50 MG TAB PO SCH (08:16)
[2021-03-17] MEDS: FAMOTIDINE 20 MG/2 ML VIAL IV SCH (08:16)
[2021-03-17] MEDS ORDERED: ASPIRIN 81 MG PO SCH (09:00)
--- NOTE | 2021-03-17 11:52 | P.PN ---
Subjective Progress Note Date: 03/17/21 HISTORY OF PRESENT ILLNESS: 45-year-old male who underwent cardiac catheterization yesterday with Dr. Lucas revealing normal coronary arteries. Recent echocardiogram revealed ejection fraction 55-60%, possible bicuspid aortic valve, trace mitral regurgitation, and trace tricuspid regurgitation. Patient examined this morning at the bedside. He denies chest pain or pressure. He denies short of breath. He complains of generalized discomfort. Vital signs stable. PHYSICAL EXAM: VITAL SIGNS: Reviewed. GENERAL: Well-developed in no acute distress. NECK: Supple. No JVD or thyromegaly LUNGS: Respirations even and unlabored. Lungs diminished bilaterally, no rales or wheezes noted. HEART: Regular rate and rhythm. S1 and S2 heard. EXTREMITIES: Normal range of motion. No clubbing or cyanosis. Peripheral pulses intact. No lower extremity edema. Right radial cath site with pulse present. ASSESSMENT: Chest pain, status post cardiac cath revealing normal coronary arteries Hypertension Hyperlipidemia Nicotine dependence Bipolar disorder Possible bicuspid aortic valve PLAN: Continue current cardiac medications Smoking cessation encouraged Patient is stable for discharge home today from a cardiac standpoint. He is to follow up on an outpatient basis. We will sign off. Please reconsult if needed. Nurse practitioner note has been reviewed by physician. Signing provider agrees with the documented findings, assessment, and plan of care. Objective - Vital Signs Vital signs: Vital Signs Temp 98.4 F 03/17/21 07:42 Pulse 80 03/17/21 07:42 Resp 16 03/17/21 07:42 BP 154/89 03/17/21 07:42 Pulse Ox 96 03/17/21 07:42 Intake & Output 03/16/21 03/17/21 03/17/21 18:59 06:59 18:59 Intake Total 1673.718 630 910 Output Total 1250 1700 Balance 423.718 630 -790 Weight 67.4 kg Intake: IV 60 30 10 Invasive Line 1 10 30 10 Intake, IV Titration 113.718 Amount Heparin Sod,Pork in 0.45% 113.718 NaCl 25,000 unit In 0.45 % NaCl 1 250ml.bag @ 12 UNITS/KG/HR 9.253 mls/hr IV .Q24H YESSY Rx#: [id number] Oral 1500 600 900 Output: Urine 1250 1700 Other: Voiding Method Toilet # Voids 1 - Labs CBC & Chem 7: 03/16/21 08:07 03/16/21 08:07 Labs: Abnormal Lab Results - Last 24 Hours (Table) 03/16/21 Range/Units 12:30 POC Glucose (mg/dL) 105 H (75-99) mg/dL
[2021-03-17] MEDS: ALPRAZolam 0.5 MG TAB PO PRN (11:57)
--- NOTE | 2021-03-17 22:42 | DS ---
DISCHARGE SUMMARY FINAL DIAGNOSES: 1. Chest pain, possible acute bjv-OM-wjlmoot-elevation myocardial infarction with troponin 0.052 status post cardiac catheterization with normal coronary artery disease possible coronary vasospasms. 2. Hyponatremia. 3. Hypertension. 4. Hyperlipidemia. 5. History of recent hypertensive urgency. 6. History of recent bronchitis. 7. Anxiety/bipolar depression/panic disorder. 8. History of continued ongoing nicotine dependence. 9. History of THC. 10.Superficial thrombophlebitis right antecubital fossa. 11.FULL CODE. DISCHARGE DISPOSITION: The patient being discharged in stable condition. Guarded prognosis. Discharge cleared by Cardiology. HISTORY OF PRESENT ILLNESS: This 45-year-old gentleman with a past medical history of multiple medical problems was admitted with chest pain and acute non ST segment elevation myocardial infarction possibly. The patient underwent cardiac catheterization showed normal coronaries. Medications adjusted. Cardiology saw the patient. The patient being discharged in stable condition with guarded prognosis. On exam, vitals signs are stable. Cardiovascular S1, S2. Abdomen soft. Nervous system: No focal deficits. DISCHARGE INSTRUCTIONS: 1. Discharge diet is cardiac diet. 2. Activity limited until follow up. 3. Follow up with Dr. Lopez in 2-3 days. 4. Follow up with Cardiology as recommended. 5. BuSpar p.r.n. 6. Hydroxyzine 50 mg q.h.s. 7. Losartan 50 mg p.o. b.i.d. 8. Zoloft 100 mg p.o. daily. 9. Aspirin 81 mg daily. 10.Bactrim DS 1 p.o. b.i.d. for 3 days. 11.Diovan 320 mg p.o. daily. 12.Hydrochlorothiazide 25 mg p.o. daily. 13.Lipitor 20 mg q.h.s. 14.Lopressor 20 mg p.o. b.i.d. 15.Nitrostat p.r.n. 16.Norvasc 10 mg p.o. daily. 17.Prilosec 40 mg b.i.d. 18.Xanax 0.5 mg t.i.d. p.r.n. Once again, the patient will be discharged in stable condition with guarded prognosis. MMODL / IJN: [id number] /
== END 2021-03-17 16:47 | disposition home or self-care (01) | DRG 281 ==
LOC: EC 19:23 → 3SCARD 22:24
PROVIDERS: ADMIT Internal Medicine; ATTEND Internal Medicine
PROC: B2111ZZ Fluoroscopy of Multiple Coronary Arteries using Low Osmolar Contrast (ICD-10-PCS; 2021-03-16)
PROC: B2151ZZ Fluoroscopy of Left Heart using Low Osmolar Contrast (ICD-10-PCS; principal; 2021-03-16 13:00)
DX: I21.4 Non-ST elevation (NSTEMI) myocardial infarction (principal); F31.30 Bipolar disorder, current episode depressed, mild or moderate severity, unspecified; E87.1 Hypo-osmolality and hyponatremia; E83.42 Hypomagnesemia; I10 Essential (primary) hypertension; E78.5 Hyperlipidemia, unspecified; F41.0 Panic disorder [episodic paroxysmal anxiety]; Z79.82 Long term (current) use of aspirin; Z20.822 Contact with and (suspected) exposure to COVID-19; Z83.3 Family history of diabetes mellitus; Z82.49 Family history of ischemic heart disease and other diseases of the circulatory system; F17.200 Nicotine dependence, unspecified, uncomplicated; I25.10 Atherosclerotic heart disease of native coronary artery without angina pectoris; I80.9 Phlebitis and thrombophlebitis of unspecified site
CPT/HCPCS: 36415; 71046; 80048; 80053; 80306; 83735; 83880; 84484; 85025; 85379; 85610; 85730; 87635; 93005; 93458; 96365; 96375; 99291

== ENCOUNTER 2021-03-17 20:24 | Emergency (ER) | payer MEDICARE, OTHER ==
[2021-03-17] MEDS ORDERED: ASPIRIN 81 MG PO STA (20:42)
[2021-03-17] MEDS ORDERED: MAG HYDROX/AL HYDROX/SIMETH 30 ML, HYOSCYAMINE ELIXIR 10 ML, LIDOCAINE VISCOUS 2% 10 ML PO STA ×3 (20:52)
[2021-03-17 21:08] LABS: Basophils % (A) 0 %; Eosinophils # (A) 0.1 k/uL (0-0.7); Eosinophils % (A) 1 %; HCT 41.9 % (39.0-53.0); HGB 14.5 gm/dL (13.0-17.5); Lymphocytes # (A) 2.7 k/uL (1.0-4.8); Lymphocytes % (A) 27 %; MCH 30.4 pg (25.0-35.0); MCHC 34.6 g/dL (31.0-37.0); MCV 87.9 fL (80.0-100.0); Mean Platelet Volume 7.9; Monocytes # (A) 0.5 k/uL (0-1.0); Monocytes % (A) 5 %; Neutrophils # (A) 6.5 k/uL (1.3-7.7); Neutrophils % (A) 65 %; Platelet Count 296 k/uL (150-450); RBC 4.77 m/uL (4.30-5.90); RDW 12.4 % (11.5-15.5); WBC 9.9 k/uL (3.8-10.6)
[2021-03-17 21:16] LABS: ALT 35 U/L (4-49); AST 33 U/L (17-59); African American GFR (CKD) >90 (>60 ml/min/1.73 sqM); Albumin 4.7 g/dL (3.5-5.0); Alkaline Phosphatase 85 U/L (38-126); Anion Gap 10 mmol/L; Blood Urea Nitrogen 17 mg/dL (9-20); Calcium 10.2 mg/dL (8.4-10.2); Carbon Dioxide 23 mmol/L (22-30); Chloride 100 mmol/L (98-107); Glucose 111 mg/dL (74-99); Magnesium 1.3 mg/dL (1.6-2.3); Non-African American GFR(CKD) >90 (>60 ml/min/1.73 sqM); Sodium 133 mmol/L (137-145); Total Bilirubin 0.2 mg/dL (0.2-1.3); Total Protein 7.2 g/dL (6.3-8.2)
[2021-03-17 21:18] LABS: INR 0.9 (<1.2); Prothrombin Time 10.2 sec (9.0-12.0)
--- NOTE | 2021-03-17 21:32 | XR ---
EXAMINATION TYPE: XR chest 2V DATE OF EXAM: 03/17/2021 COMPARISON: 03/14/2021 HISTORY: Chest pain TECHNIQUE: 2 views FINDINGS: There is no heart failure nor confluent pneumonic infiltrate. Costophrenic angles are clear . Heart size is normal. There are chest leads. There are no hilar masses. IMPRESSION: No active cardiopulmonary disease. No change.
--- NOTE | 2021-03-17 21:37 | ED ---
Chest Pain HPI - General Chief Complaint: Chest Pain Stated Complaint: Chest Pain Time Seen by Provider: 03/17/21 20:31 Source: patient, EMS, RN notes reviewed Mode of arrival: EMS Limitations: no limitations - History of Present Illness Initial Comments: 45-year-old male presents emergency Department chief complaint of chest discomfort. Patient was just discharged for similar complaints. Patient had cardiac cath which revealed no acute processes. Patient states he still had chest discomfort when his discharge and cardiology cleared him. Patient states that he has a burning sensation, heartburn issues. Denies any shortness breath no headache or dizziness. Patient was given aspirin nitro by EMS with no changes symptoms. - Related Data Home Medications Medication Instructions Recorded Confirmed Losartan Potassium 50 mg PO BID 03/14/21 03/17/21 Sertraline [Zoloft] 100 mg PO DAILY 03/14/21 03/17/21 busPIRone HCL [Buspar] See Taper PO DIRECTED 03/14/21 03/17/21 hydrOXYzine pamoate [hydrOXYzine 50 mg PO HS 03/14/21 03/17/21 PAMOATE] Previous Rx's Medication Instructions Recorded Omeprazole [PriLOSEC] 40 mg PO AC-DADAKFST #14 capsule. 03/06/21 Valsartan [Diovan] 320 mg PO DAILY #90 tab 03/10/21 amLODIPine [Norvasc] 10 mg PO DAILY #90 tablet 03/10/21 ALPRAZolam [Xanax] 0.25 mg PO TID PRN #8 tab 03/11/21 Aspirin 81 mg PO DAILY #30 chew 03/11/21 Atorvastatin [Lipitor] 20 mg PO HS #30 tab 03/11/21 Nitroglycerin Sl Tabs [Nitrostat] 0.4 mg SUBLINGUAL Q5M PRN #20 tab 03/11/21 hydroCHLOROthiazide 25 mg PO DAILY #90 tablet 03/12/21 Metoprolol Tartrate [Lopressor] 25 mg PO BID #60 tab 03/17/21 Omeprazole [PriLOSEC] 40 mg PO DAILY #14 cap 03/17/21 Sulfamethox-Tmp 800-160Mg [Bactrim 1 tab PO DAILY #3 tab 03/17/21 DS 800-160 mg] Allergies Allergy/AdvReac Type Severity Reaction Status Date / Time tramadol Allergy Severe Itching Verified 03/17/21 23:24 Review of Systems ROS Statement: Those systems with pertinent positive or pertinent negative responses have been documented in the HPI. ROS Other: All systems not noted in ROS Statement are negative. EKG Findings - EKG Comments: EKG Findings:: EKG performed at 20:33 normal sinus rhythm rate of 92 ID 1:30 QRS 84 QT/QTC 350/432 Past Medical History Past Medical History: Chest Pain / Angina, Hyperlipidemia, Hypertension Additional Past Medical History / Comment(s): Recent bronchitis History of Any Multi-Drug Resistant Organisms: None Reported Past Surgical History: No Surgical Hx Reported Past Anesthesia/Blood Transfusion Reactions: No Reported Reaction Additional Past Anesthesia/Blood Transfusion Reaction / Comment(s): Pt has never had surgery. Past Psychological History: Anxiety, Bipolar, Depression, Panic Disorder Smoking Status: Former smoker Past Alcohol Use History: Occasional Past Drug Use History: Marijuana - Past Family History Father Family Medical History: Myocardial Infarction ([place]) Additional Family Medical History / Comment(s): Father of a [place] at the age of 41 yrs. Mother Family Medical History: Diabetes Mellitus General Exam Limitations: no limitations General appearance: alert, in no apparent distress Head exam: Present: atraumatic, normocephalic, normal inspection Eye exam: Present: normal appearance, PERRL, EOMI. Absent: scleral icterus, conjunctival injection, periorbital swelling ENT exam: Present: normal exam, normal oropharynx, mucous membranes moist Neck exam: Present: normal inspection, full ROM. Absent: tenderness, meningismus, lymphadenopathy Respiratory exam: Present: normal lung sounds bilaterally. Absent: respiratory distress, wheezes, rales, rhonchi, stridor Cardiovascular Exam: Present: regular rate, normal rhythm, normal heart sounds. Absent: systolic murmur, diastolic murmur, rubs, gallop, clicks GI/Abdominal exam: Present: soft, normal bowel sounds. Absent: distended, tenderness, guarding, rebound, rigid Neurological exam: Present: alert, oriented X3, CN II-XII intact Skin exam: Present: warm, dry, intact, normal color. 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 There is some question of infiltrate versus atelectasis patient has no cough or cold like symptoms felt to be related to atelectasis. Patient we discharged stable condition may have underlying reflux started on omeprazole follow-up with PCP. Disposition Clinical Impression: Atypical chest pain, GERD (gastroesophageal reflux disease) Disposition: HOME SELF-CARE Condition: Stable Instructions (If sedation given, give patient instructions): Chest Pain (ED) Additional Instructions: Please return to the Emergency Department if symptoms worsen or any other concerns. Prescriptions: Omeprazole [PriLOSEC] 40 mg PO DAILY #14 cap Is patient prescribed a controlled substance at d/c from ED?: No Referrals: Jorge Lopez MD [Primary Care Provider] - 1-2 days Time of Disposition: 23:39
--- NOTE | 2021-03-17 23:30 | CT ---
EXAMINATION TYPE: CT angio thor/abd pel aorta DATE OF EXAM: 03/17/2021 COMPARISON: 03/08/2021 HISTORY: chest pain CT DLP: 1036 mGycm Automated exposure control for dose reduction was used. CONTRAST: Performed with IV Contrast, patient injected with 100 mL of Isovue 370. Images obtained from the thoracic inlet to the diaphragm without contrast. Images obtained from the t horacic inlet to the floor the pelvis with IV contrast Isovue 100 mL. There are 3-D post processed im ages. There is some infiltrate and atelectasis at the lung bases bilaterally. Thoracic aorta is intact. The re is no aneurysm or dissection. There is no evidence of filling defect in the pulmonary arteries. Th ere is no mediastinal adenopathy. There are no hilar masses. There is 3.1 cm ascending aorta. The liver spleen stomach pancreas and gallbladder appear intact. The bile ducts are nondilated. There is no adrenal mass. Kidneys show satisfactory contrast opacification. There is no hydronephrosis. Th ere is no retroperitoneal adenopathy. Bladder distends smoothly. There is no inguinal hernia. There i s no free fluid in the pelvis. There is no evidence of pelvic mass. There is arterial flow in the celiac artery and superior mesenteric artery. There is arterial flow in both renal arteries and the iliac and femoral arteries. I see no evidence of hemodynamic stenosis. T here is no aneurysm or dissection. There is atheromatous changes in the iliac arteries. There is up t o 50% narrowing of the left and right external iliac arteries. There is no mesenteric edema. There is no ascites or free air. There is no bowel obstruction. There i s mild thoracic dextroscoliosis. There is no thoracic or lumbar compression fracture. Sternum is inta ct. The bony pelvis is intact. The ribs appear intact. IMPRESSION: Mild atherosclerotic plaque formation with up to 50% narrowing of the iliac arteries. No evidence of hemodynamic stenosis. No evidence of pulmonary embolism. No evidence of arterial dissection. There is increased infiltrate and atelectasis at the lung bases compared to old exam. No suspicious p ulmonary mass.
[2021-03-17 23:56] VITALS: BP 158/90; PULSE 76; RESP 16; TEMP 98
== END 2021-03-17 23:56 | disposition home or self-care (01) ==
LOC: EC 20:24
DX: K21.9 Gastro-esophageal reflux disease without esophagitis (principal); E78.5 Hyperlipidemia, unspecified; I10 Essential (primary) hypertension; F31.9 Bipolar disorder, unspecified; F41.9 Anxiety disorder, unspecified; Z79.82 Long term (current) use of aspirin; Z79.899 Other long term (current) drug therapy; Z87.891 Personal history of nicotine dependence; F12.90 Cannabis use, unspecified, uncomplicated
CPT/HCPCS: 36415; 71046; 71275; 74174; 80053; 83735; 84484; 85025; 85610; 85730; 93005; 99285

== ENCOUNTER 2021-03-18 18:36 | Emergency (ER) | payer MEDICARE, OTHER ==
[2021-03-18] MEDS ORDERED: LORazepam 2 MG/ML INJ IM STA (19:17)
--- NOTE | 2021-03-18 19:29 | ED ---
General Adult HPI - General Chief complaint: Anxiety Stated complaint: revisit - acid reflux Time Seen by Provider: 03/18/21 19:01 Source: patient Mode of arrival: ambulatory Limitations: no limitations - History of Present Illness Initial comments: 45 year-old male patient presents to the emergency department for evaluation of increased anxiety. Patient states that he was recently admitted to the hospital and diagnosed with a heart attack. He was started on several new medications. Patient states that he has been having a lot of anxiety related to this especially . States that his mind is running a mile a minute. He continues to have chest pain, acid reflux, and today was feeling hot and sweaty. States he does not have air conditioning and feels like it is 200 degrees outside. Patient states that he is unable to sleep due to the anxiety. They did start him on buspar when he was here. Did not take his home xanax. He also reports that his left him 4 months ago and his children were "taken away" which is contributing to his racing thoughts. Patient denies any recent rash, fever, chills, cough, shortness of breath, abdominal pain, nausea, vomiting, diarrhea, constipation, back pain, numbness, tingling, dizziness, weakness, hematuria, dysuria, urinary urgency, urinary frequency, headache, visual changes, or any other complaints. - Related Data Home Medications Medication Instructions Recorded Confirmed Losartan Potassium 50 mg PO BID 03/14/21 03/17/21 Sertraline [Zoloft] 100 mg PO DAILY 03/14/21 03/17/21 busPIRone HCL [Buspar] See Taper PO DIRECTED 03/14/21 03/17/21 hydrOXYzine pamoate [hydrOXYzine 50 mg PO HS 03/14/21 03/17/21 PAMOATE] Previous Rx's Medication Instructions Recorded Omeprazole [PriLOSEC] 40 mg PO ANKFST #14 capsule. 03/06/21 Valsartan [Diovan] 320 mg PO DAILY #90 tab 03/10/21 amLODIPine [Norvasc] 10 mg PO DAILY #90 tablet 03/10/21 ALPRAZolam [Xanax] 0.25 mg PO TID PRN #8 tab 03/11/21 Aspirin 81 mg PO DAILY #30 chew 03/11/21 Atorvastatin [Lipitor] 20 mg PO HS #30 tab 03/11/21 Nitroglycerin Sl Tabs [Nitrostat] 0.4 mg SUBLINGUAL Q5M PRN #20 tab 03/11/21 hydroCHLOROthiazide 25 mg PO DAILY #90 tablet 03/12/21 Metoprolol Tartrate [Lopressor] 25 mg PO BID #60 tab 03/17/21 Omeprazole [PriLOSEC] 40 mg PO DAILY #14 cap 03/17/21 Sulfamethox-Tmp 800-160Mg [Bactrim 1 tab PO DAILY #3 tab 03/17/21 DS 800-160 mg] Allergies Allergy/AdvReac Type Severity Reaction Status Date / Time tramadol Allergy Severe Itching Verified 03/18/21 18:57 Review of Systems ROS Statement: Those systems with pertinent positive or pertinent negative responses have been documented in the HPI. ROS Other: All systems not noted in ROS Statement are negative. Past Medical History Past Medical History: Coronary Artery Disease (CAD), Chest Pain / Angina, Hyperlipidemia, Hypertension Additional Past Medical History / Comment(s): Recent bronchitis History of Any Multi-Drug Resistant Organisms: None Reported Past Surgical History: No Surgical Hx Reported Past Anesthesia/Blood Transfusion Reactions: No Reported Reaction Additional Past Anesthesia/Blood Transfusion Reaction / Comment(s): Pt has never had surgery. Past Psychological History: Anxiety, Bipolar, Depression, Panic Disorder Smoking Status: Former smoker Past Alcohol Use History: Occasional Past Drug Use History: Marijuana - Past Family History Father Family Medical History: Myocardial Infarction ([place]) Additional Family Medical History / Comment(s): Father of a [place] at the age of 41 yrs. Mother Family Medical History: Diabetes Mellitus General Exam Limitations: no limitations General appearance: alert, in no apparent distress, anxious, other (Physical well-developed, well-nourished adult male patient in no acute distress. Vital signs upon presentation are temperature 98.1F, pulse 111, respirations 16, blood pressure 156/97, pulse ox 95% on room air) Eye exam: Present: normal appearance, PERRL, EOMI. Absent: scleral icterus, conjunctival injection, periorbital swelling Respiratory exam: Present: normal lung sounds bilaterally. Absent: respiratory distress, wheezes, rales, rhonchi, stridor Cardiovascular Exam: Present: regular rate, normal rhythm, normal heart sounds. Absent: systolic murmur, diastolic murmur, rubs, gallop, clicks GI/Abdominal exam: Present: soft, normal bowel sounds. Absent: distended, tenderness, guarding, rebound, rigid Neurological exam: Present: alert, oriented X3, CN II-XII intact Psychiatric exam: Present: normal affect, normal mood Skin exam: Present: warm, dry, intact, normal color. Absent: rash Course Vital Signs 03/18/21 18:54 Temperature 98.1 F Pulse Rate 111 H Respiratory 16 Rate Blood Pressure 156/97 O2 Sat by Pulse 95 Oximetry EKG Findings - EKG Comments: EKG Findings:: EKG obtained in 193 shows normal sinus rhythm. Ventricular rate is 81, ID interval 150, QRS duration 86, QT 372, QTc 432. Redemonstrated ST depression Lead III. Medical Decision Making - Medical Decision Making 45 year-old male patient presents for increased anxiety due to recent diagnosis of heart attack, his leaving him, and his children being taken away. He was recently admitted and clean cardiac catheterization, evaluation by cardiology, ED visit yesterday with negative aorta CT and lab workup. I discussed findings with the patient. Offered EPS evaluation, he declined. Denies any suicidal or ho micidal ideation. EKG showed no changes. He was given 2mg Ativan IM. Given food. Upon re-evaluation he is resting comfortably. States that he is feeling better and is comfortable being discharged. He is given resources for outpatient mental health follow up. Has an appointment with his PCP on 03/20/21. Return parameters were discussed in detail. He verbalizes understanding and agrees with this plan. Case discussed with my attending Dr. Pierce. Disposition Clinical Impression: Anxiety Disposition: HOME SELF-CARE Condition: Good Instructions (If sedation given, give patient instructions): Generalized Anxiety Disorder (ED), Anxiety (ED) Additional Instructions: Follow up with your primary care physician as you have planned, discuss your symptoms. Call for outpatient mental health help. Return to the emergency department for any new, worsening, or concerning symptoms Is patient prescribed a controlled substance at d/c from ED?: No Referrals: Jorge Lopez MD [Primary Care Provider] - 1-2 days Time of Disposition: 20:48
[2021-03-18] MEDS ORDERED: diphenhydrAMINE 50 MG/ML 1 ML VIAL IM STA (21:10)
[2021-03-18 21:43] VITALS: BP 152/81; PULSE 84; RESP 17; TEMP 98.2
== END 2021-03-18 21:43 | disposition home or self-care (01) ==
LOC: EC 18:36
DX: F41.9 Anxiety disorder, unspecified (principal); K21.9 Gastro-esophageal reflux disease without esophagitis; E78.5 Hyperlipidemia, unspecified; I10 Essential (primary) hypertension; I25.10 Atherosclerotic heart disease of native coronary artery without angina pectoris; I25.2 Old myocardial infarction; F31.9 Bipolar disorder, unspecified; F12.90 Cannabis use, unspecified, uncomplicated; Z87.891 Personal history of nicotine dependence; Z79.82 Long term (current) use of aspirin
CPT/HCPCS: 93005; 99283; 96372 ×2; J2060; J1200

== ENCOUNTER 2021-03-21 13:07 | Emergency (ER) | payer MEDICARE, OTHER ==
[2021-03-21 13:45] VITALS: PULSE 69; RESP 16; TEMP 97.9
[2021-03-21] MEDS: ALPRAZolam 0.5 MG TAB PO STA (15:49)
--- NOTE | 2021-03-21 15:49 | ED ---
General Adult HPI - General Chief complaint: Chest Pain Stated complaint: Panic Attack Time Seen by Provider: 03/21/21 15:16 Source: patient Mode of arrival: ambulatory Limitations: no limitations - History of Present Illness Initial comments: Dictation was produced using [employer] dictation software. please excuse any grammatical, word or spelling errors. Chief Complaint: 45-year-old male with past medical history of hyperlipidemia, hypertension. Presents emergency department for anxiety reaction. History of Present Illness: 45-year-old male he is here in emergency department to attempt to get a refill for his anxiolytic medication. Patient was recently admitted on multiple occasions for chest pain. He was admitted twice earlier this month for chest pain concerning for possible acute coronary syndrome. He is been discharged both times with no significant issues. Patient's believes that his chest pain history from anxiety. States that he has some chest pain substernal area. He was disappointed because he went to his PCPs office today to get a refill on his anxiolytic medications. He states that his PCP Dr. Huang refused to do so. He better come to the emergency department for possible refill. The ROS documented in this emergency department record has been reviewed and confirmed by me. Those systems with pertinent positive or negative responses have been documented in the HPI. All other systems are other negative and/or noncontributory. PHYSICAL EXAM: General Impression: Alert and oriented x3, not in acute distress HEENT: Normocephalic atraumatic, extra-ocular movements intact, pupils equal and reactive to light bilaterally, mucous membranes moist. Cardiovascular: Heart regular rate and rhythm Chest: Able to complete full sentences, no retractions, no tachypnea Abdomen: abdomen soft, non-tender, non-distended, no organomegaly Musculoskeletal: Pulses present and equal in all extremities, no peripheral edema Motor: no focal deficits noted Neurological: CN II-XII grossly intact, no focal motor or sensory deficits noted Skin: Intact with no visualized rashes Psych: Normal affect and mood ED course: 45-year-old male who was recently admitted twice for chest pain and discharged both times with no issues presents to the emergency department for request to refill his anxiolytic medications. Chart review shows that patient had his cardiac cath performed 5 days ago with normal coronary arteries. Vital signs upon arrival are within acceptable limits. EKGs benign. She is well-appearing at bedside. Patient is discharge. EKG interpretation: Ventricular rate 59, sinus bradycardia,. 152, QRS 90, QTC 419. No [place] prolongation, no QTC prolongation, no ST or T-wave changes noted. EKG compared to 03/18/2021 showing no changes. Overall, this EKG is unremarkable - Related Data Home Medications Medication Instructions Recorded Confirmed Losartan Potassium 50 mg PO BID 03/14/21 03/17/21 Sertraline [Zoloft] 100 mg PO DAILY 03/14/21 03/17/21 busPIRone HCL [Buspar] See Taper PO DIRECTED 03/14/21 03/17/21 hydrOXYzine pamoate [hydrOXYzine 50 mg PO HS 03/14/21 03/17/21 PAMOATE] Previous Rx's Medication Instructions Recorded Omeprazole [PriLOSEC] 40 mg PO AC-BRKFST #14 capsule. 03/06/21 Valsartan [Diovan] 320 mg PO DAILY #90 tab 03/10/21 amLODIPine [Norvasc] 10 mg PO DAILY #90 tablet 03/10/21 ALPRAZolam [Xanax] 0.25 mg PO TID PRN #8 tab 03/11/21 Aspirin 81 mg PO DAILY #30 chew 03/11/21 Atorvastatin [Lipitor] 20 mg PO HS #30 tab 03/11/21 Nitroglycerin Sl Tabs [Nitrostat] 0.4 mg SUBLINGUAL Q5M PRN #20 tab 03/11/21 hydroCHLOROthiazide 25 mg PO DAILY #90 tablet 03/12/21 Metoprolol Tartrate [Lopressor] 25 mg PO BID #60 tab 03/17/21 Omeprazole [PriLOSEC] 40 mg PO DAILY #14 cap 03/17/21 Sulfamethox-Tmp 800-160Mg [Bactrim 1 tab PO DAILY #3 tab 03/17/21 DS 800-160 mg] Allergies Allergy/AdvReac Type Severity Reaction Status Date / Time tramadol Allergy Severe Itching Verified 03/21/21 13:44 Review of Systems ROS Statement: Those systems with pertinent positive or pertinent negative responses have been documented in the HPI. ROS Other: All systems not noted in ROS Statement are negative. Past Medical History Past Medical History: Coronary Artery Disease (CAD), Chest Pain / Angina, Hyperlipidemia, Hypertension Additional Past Medical History / Comment(s): Recent bronchitis History of Any Multi-Drug Resistant Organisms: None Reported Past Surgical History: No Surgical Hx Reported Past Anesthesia/Blood Transfusion Reactions: No Reported Reaction Additional Past Anesthesia/Blood Transfusion Reaction / Comment(s): Pt has never had surgery. Past Psychological History: Anxiety, Bipolar, Depression, Panic Disorder Smoking Status: Former smoker Past Alcohol Use History: Occasional Past Drug Use History: None Reported - Past Family History Father Family Medical History: Myocardial Infarction ([place]) Additional Family Medical History / Comment(s): Father of a [place] at the age of 41 yrs. Mother Family Medical History: Diabetes Mellitus General Exam Limitations: no limitations Course Vital Signs 03/21/21 13:40 Temperature 97.9 F Pulse Rate 69 Respiratory 16 Rate O2 Sat by Pulse 95 Oximetry Disposition Clinical Impression: Benzodiazepine misuse Disposition: HOME SELF-CARE Condition: Good Instructions (If sedation given, give patient instructions): Anxiolysis in Adults (ED) Is patient prescribed a controlled substance at d/c from ED?: No Referrals: Jorge Lopez MD [Primary Care Provider] - 1-2 days
== END 2021-03-21 16:49 | disposition home or self-care (01) ==
LOC: EC 13:07
DX: F13.10 Sedative, hypnotic or anxiolytic abuse, uncomplicated (principal); E78.5 Hyperlipidemia, unspecified; F31.9 Bipolar disorder, unspecified; F41.1 Generalized anxiety disorder; I10 Essential (primary) hypertension; I25.10 Atherosclerotic heart disease of native coronary artery without angina pectoris; Z79.82 Long term (current) use of aspirin; Z87.891 Personal history of nicotine dependence
CPT/HCPCS: 93005; 99283

== ENCOUNTER 2021-05-20 18:43 | Emergency (ER) | payer MEDICARE, OTHER ==
[2021-05-20 18:52] VITALS: RESP 18
[2021-05-20] MEDS ORDERED: ASPIRIN 81 MG PO STA (18:59)
[2021-05-20] MEDS ORDERED: NITROGLYCERIN OINT 1 INCH/GM PACKET TOPICAL STA (18:59)
--- NOTE | 2021-05-20 19:04 | ED ---
General Adult HPI - General Chief complaint: Chest Pain Stated complaint: Chest Pain Time Seen by Provider: 05/20/21 18:50 Source: patient, RN notes reviewed, old records reviewed Mode of arrival: ambulatory Limitations: no limitations - History of Present Illness Initial comments: This is a 45-year-old male who comes to the emergency department complaining of chest pain and one episode of diarrhea. Patient states he's had a heart attack in March of this year he also states he has high blood pressure and smokes. Patient states last night he started having chest pain is been constant ever since. Patient describes it as a pressure he states he is a little bit shortness of breath. Patient denies any nausea vomiting. Patient denies any radiation of the pain. Patient states the pain is central but it's bilateral. Patient denies any diaphoretic episodes. Patient states he has some cramping abdominal pain is had one episode of diarrhea. Patient denies any fever chills or cough. Patient denies any swelling to the legs or calf tenderness. - Related Data Home Medications Medication Instructions Recorded Confirmed Losartan Potassium 50 mg PO BID 03/14/21 05/20/21 Sertraline [Zoloft] 100 mg PO DAILY 03/14/21 05/20/21 busPIRone HCL [Buspar] 7.5 mg PO TID 03/14/21 05/20/21 hydrOXYzine pamoate [hydrOXYzine 50 mg PO HS 03/14/21 05/20/21 PAMOATE] Baclofen [Lioresal] 20 mg PO TID 05/20/21 05/20/21 Carvedilol [Coreg] 6.25 mg PO BID 05/20/21 05/20/21 Citalopram Hydrobromide 20 mg PO DAILY 05/20/21 05/20/21 [Citalopram HBr] Ibuprofen [Motrin] 800 mg PO Q8H PRN 05/20/21 05/20/21 Nicotine [Nicotrol] 10 mg INHALATION Q4H PRN 05/20/21 05/20/21 OLANZapine 5 mg PO DAILY 05/20/21 05/20/21 Pantoprazole Sodium 40 mg PO DAILY 05/20/21 05/20/21 Varenicline Tartrate [Chantix 0.5 mg PO BID 05/20/21 05/20/21 Starter Pack] Previous Rx's Medication Instructions Recorded Valsartan [Diovan] 320 mg PO DAILY #90 tab 03/10/21 amLODIPine [Norvasc] 10 mg PO DAILY #90 tablet 03/10/21 Aspirin 81 mg PO DAILY #30 chew 03/11/21 Atorvastatin [Lipitor] 20 mg PO HS #30 tab 03/11/21 Nitroglycerin Sl Tabs [Nitrostat] 0.4 mg SUBLINGUAL Q5M PRN #20 tab 03/11/21 hydroCHLOROthiazide 25 mg PO DAILY #90 tablet 03/12/21 Metoprolol Tartrate [Lopressor] 25 mg PO BID #60 tab 03/17/21 Allergies Allergy/AdvReac Type Severity Reaction Status Date / Time tramadol Allergy Severe Itching Verified 05/20/21 20:42 Review of Systems ROS Statement: Those systems with pertinent positive or pertinent negative responses have been documented in the HPI. ROS Other: All systems not noted in ROS Statement are negative. Past Medical History Past Medical History: Coronary Artery Disease (CAD), Chest Pain / Angina, Hype rlipidemia, Hypertension, Myocardial Infarction ([place]) Additional Past Medical History / Comment(s): Recent bronchitis History of Any Multi-Drug Resistant Organisms: None Reported Past Surgical History: No Surgical Hx Reported, Heart Catheterization Past Anesthesia/Blood Transfusion Reactions: No Reported Reaction Additional Past Anesthesia/Blood Transfusion Reaction / Comment(s): Pt has never had surgery. Past Psychological History: Anxiety, Bipolar, Depression, Panic Disorder Smoking Status: Former smoker Past Drug Use History: None Reported - Past Family History Father Family Medical History: Myocardial Infarction ([place]) Additional Family Medical History / Comment(s): Father of a [place] at the age of 41 yrs. Mother Family Medical History: Diabetes Mellitus General Exam - General Exam Comments Initial Comments: GENERAL: Patient is well-developed and well-nourished. Patient is nontoxic and well- hydrated and is in mild distress. ENT: Neck is soft and supple. No significant lymphadenopathy is noted. Oropharynx is clear. Moist mucous membranes. Neck has full range of motion without eliciting any pain. EYES: The sclera were anicteric and conjunctiva were pink and moist. Extraocular movements were intact and pupils were equal round and reactive to light. Eyelids were unremarkable. PULMONARY: Unlabored respirations. Good breath sounds bilaterally. No audible rales rhonchi or wheezing was noted. CARDIOVASCULAR: There is a regular rate and rhythm without any murmurs gallops or rubs. ABDOMEN: Soft and nontender with normal bowel sounds. SKIN: Skin is clear with no lesions or rashes and otherwise unremarkable. NEUROLOGIC: Patient is alert and oriented x3. Cranial nerves II through XII are grossly intact. Motor and sensory are also intact. Normal speech, volume and content. Symmetrical smile. MUSCULOSKELETAL: Normal extremities with adequate strength and full range of motion. No lower extremity swelling or edema. No calf tenderness. LYMPHATICS: No significant lymphadenopathy is noted PSYCHIATRIC: Normal psychiatric evaluation. Limitations: no limitations Course Vital Signs 05/20/21 05/20/21 05/20/21 18:50 19:20 20:25 Temperature 98.4 F Pulse Rate 68 70 63 Respiratory 18 18 18 Rate Blood Pressure 179/91 175/81 150/77 O2 Sat by Pulse 98 97 98 Oximetry Medical Decision Making - Medical Decision Making EKG shows normal sinus rhythm at 74 bpm VT interval is 138 QRS is 80 QT interval 370 QTC is 410. Patient's EKG shows no ST segment elevation or depression. Chest x-ray shows no acute abnormality I went back and spoke with the patient I recommended that he stay patient states he had no symptoms while being in the emergency department patient states he was comfortable going home and following up with his primary medical care doctor. I reviewed the patient's old chart he did have a catheterization 2 months ago and had clean coronaries at this time. - Lab Data Result diagrams: 05/20/21 19:05/20/21 19: Lab Results 05/20/21 05/20/21 05/20/21 Range/Units 19: 19: 19:01 WBC 8.8 (3.8-10.6) k/uL RBC 4.33 (4.30-5.90) m/uL Hgb 13.1 (13.0-17.5) gm/dL Hct 39.4 (39.0-53.0) % MCV 90.9 (80.0-100.0) fL MCH 30.3 (25.0-35.0) pg MCHC 33.3 (31.0-37.0) g/dL RDW 13.6 (11.5-15.5) % Plt Count 340 (150-450) k/uL MPV 8.2 Neutrophils % 55 % Lymphocytes % 34 % Monocytes % 5 % Eosinophils % 3 % Basophils % 1 % Neutrophils # 4.8 (1.3-7.7) k/uL Lymphocytes # 2.9 (1.0-4.8) k/uL Monocytes # 0.4 (0-1.0) k/uL Eosinophils # 0.3 (0-0.7) k/uL Basophils # 0.1 (0-0.2) k/uL PT 10.6 (9.0-12.0) sec INR 1.0 (<1.2) APTT 22.3 (22.0-30.0) sec Sodium 136 L (137-145) mmol/L Potassium 4.0 (3.5-5.1) mmol/L Chloride 104 (98-107) mmol/L Carbon Dioxide 22 (22-30) mmol/L Anion Gap 10 mmol/L BUN 13 (9-20) mg/dL Creatinine 0.89 (0.66-1.25) mg/dL Est GFR (CKD-EPI)AfAm >90 (>60 ml/min/1.73 sqM) Est GFR (CKD-EPI)NonAf >90 (>60 ml/min/1.73 sqM) Glucose 96 (74-99) mg/dL Calcium 10.5 H (8.4-10.2) mg/dL Magnesium 1.4 L (1.6-2.3) mg/dL Total Bilirubin 0.3 (0.2-1.3) mg/dL AST 26 (17-59) U/L ALT 16 (4-49) U/L Alkaline Phosphatase 65 (38-126) U/L Troponin I (0.000-0.034) ng/mL Total Protein 7.4 (6.3-8.2) g/dL Albumin 4.7 (3.5-5.0) g/dL 05/20/21 Range/Units 19:01 WBC (3.8-10.6) k/uL RBC (4.30-5.90) m/uL Hgb (13.0-17.5) gm/dL Hct (39.0-53.0) % MCV (80.0-100.0) fL MCH (25.0-35.0) pg MCHC (31.0-37.0) g/dL RDW (11.5-15.5) % Plt Count (150-450) k/uL MPV Neutrophils % % Lymphocytes % % Monocytes % % Eosinophils % % Basophils % % Neutrophils # (1.3-7.7) k/uL Lymphocytes # (1.0-4.8) k/uL Monocytes # (0-1.0) k/uL Eosinophils # (0-0.7) k/uL Basophils # (0-0.2) k/uL PT (9.0-12.0) sec INR (<1.2) APTT (22.0-30.0) sec Sodium (137-145) mmol/L Potassium (3.5-5.1) mmol/L Chloride (98-107) mmol/L Carbon Dioxide (22-30) mmol/L Anion Gap mmol/L BUN (9-20) mg/dL Creatinine (0.66-1.25) mg/dL Est GFR (CKD-EPI)AfAm (>60 ml/min/1.73 sqM) Est GFR (CKD-EPI)NonAf (>60 ml/min/1.73 sqM) Glucose (74-99) mg/dL Calcium (8.4-10.2) mg/dL Magnesium (1.6-2.3) mg/dL Total Bilirubin (0.2-1.3) mg/dL AST (17-59) U/L ALT (4-49) U/L Alkaline Phosphatase (38-126) U/L Troponin I <0.012 (0.000-0.034) ng/mL Total Protein (6.3-8.2) g/dL Albumin (3.5-5.0) g/dL Disposition Clinical Impression: Chest pain, Diarrhea Disposition: HOME SELF-CARE Condition: Good Instructions (If sedation given, give patient instructions): Chest Pain (ED), Acute Diarrhea (ED) Is patient prescribed a controlled substance at d/c from ED?: No Referrals: Jorge Lopez MD [Primary Care Provider] - 1-2 days Time of Disposition: 21:32
[2021-05-20 20:04] LABS: Basophils # (A) 0.1 k/uL (0-0.2); Basophils % (A) 1 %; Eosinophils # (A) 0.3 k/uL (0-0.7); Eosinophils % (A) 3 %; HCT 39.4 % (39.0-53.0); HGB 13.1 gm/dL (13.0-17.5); Lymphocytes # (A) 2.9 k/uL (1.0-4.8); Lymphocytes % (A) 34 %; MCH 30.3 pg (25.0-35.0); MCHC 33.3 g/dL (31.0-37.0); MCV 90.9 fL (80.0-100.0); Mean Platelet Volume 8.2; Monocytes # (A) 0.4 k/uL (0-1.0); Monocytes % (A) 5 %; Neutrophils # (A) 4.8 k/uL (1.3-7.7); Neutrophils % (A) 55 %; Platelet Count 340 k/uL (150-450); RBC 4.33 m/uL (4.30-5.90); RDW 13.6 % (11.5-15.5); WBC 8.8 k/uL (3.8-10.6)
[2021-05-20 20:24] LABS: ALT 16 U/L (4-49); AST 26 U/L (17-59); African American GFR (CKD) >90 (>60 ml/min/1.73 sqM); Albumin 4.7 g/dL (3.5-5.0); Alkaline Phosphatase 65 U/L (38-126); Anion Gap 10 mmol/L; Blood Urea Nitrogen 13 mg/dL (9-20); Calcium 10.5 mg/dL (8.4-10.2); Carbon Dioxide 22 mmol/L (22-30); Chloride 104 mmol/L (98-107); Glucose 96 mg/dL (74-99); Magnesium 1.4 mg/dL (1.6-2.3); Non-African American GFR(CKD) >90 (>60 ml/min/1.73 sqM); Sodium 136 mmol/L (137-145); Total Bilirubin 0.3 mg/dL (0.2-1.3); Total Protein 7.4 g/dL (6.3-8.2)
[2021-05-20 20:26] LABS: Partial Thromboplastin Time 22.3 sec (22.0-30.0); Prothrombin Time 10.6 sec (9.0-12.0)
--- NOTE | 2021-05-20 20:45 | XR ---
EXAMINATION TYPE: XR chest 2V DATE OF EXAM: 05/20/2021 COMPARISON: 03/17/2021. HISTORY: Chest pain. TECHNIQUE: Frontal and lateral views of the chest are obtained. FINDINGS: There is no focal air space opacity, pleural effusion, or pneumothorax seen. The cardiac silhouette size is within normal limits. The osseous structures are intact. IMPRESSION: No acute cardiopulmonary process.
[2021-05-20] MEDS ORDERED: MAGNESIUM SULFATE-D5W PMX 1 GM in DEXTROSE/WATER 1 100ML.BAG IVPB ONE (21:09)
[2021-05-20 22:46] VITALS: BP 138/82; PULSE 99; TEMP 98.9
== END 2021-05-20 22:46 | disposition home or self-care (01) ==
LOC: EC 18:43
DX: R07.9 Chest pain, unspecified (principal); R19.7 Diarrhea, unspecified; I10 Essential (primary) hypertension; E78.5 Hyperlipidemia, unspecified; I25.10 Atherosclerotic heart disease of native coronary artery without angina pectoris; I25.2 Old myocardial infarction; F31.9 Bipolar disorder, unspecified; F41.9 Anxiety disorder, unspecified; Z87.891 Personal history of nicotine dependence; Z79.82 Long term (current) use of aspirin; Z79.899 Other long term (current) drug therapy; Z82.49 Family history of ischemic heart disease and other diseases of the circulatory system; Z83.3 Family history of diabetes mellitus
CPT/HCPCS: 36415; 93005; 80053; 83735; 84484; 85025; 85610; 85730; 71046; 96365; 99285; J3475

== ENCOUNTER 2021-08-03 19:51 | Observation (INO) | payer MEDICARE, OTHER ==
[2021-08-03] MEDS ORDERED: ONDANSETRON 4 MG/2 ML VIAL IVP STA (20:09)
[2021-08-03] MEDS ORDERED: ASPIRIN 81 MG PO STA (20:09)
[2021-08-03] MEDS ORDERED: SODIUM CHLORIDE 0.9% 1,000 ML IV STA (20:09)
[2021-08-03] MEDS ORDERED: diphenhydrAMINE 50 MG/ML 1 ML VIAL IVP STA (20:09)
[2021-08-03] MEDS ORDERED: MORPHINE SULFATE 4 MG/ML SYRINGE IV STA (20:09)
[2021-08-03] MEDS ORDERED: FAMOTIDINE 20 MG/2 ML VIAL IV STA (20:11)
--- NOTE | 2021-08-03 20:39 | ED ---
General Adult HPI - General Chief complaint: Chest Pain Stated complaint: Chest Pain Time Seen by Provider: 08/03/21 20:05 Source: patient, EMS, RN notes reviewed, old records reviewed Mode of arrival: EMS Limitations: no limitations - History of Present Illness Initial comments: Patient is a 45-year-old male with past medical history remarkable for chronic chest pain, prior MIs, hypertension, recent heart cath that showed no significant stenosis who presents to the emergency Department complaining of a 2 to three-day history of chest pain. He describes it as substernal in the inferior aspect of the sternum and epigastric region. He describes it as a sharp, achy pain. Does not radiate. Patient denies any shortness of breath. Denies any cough. Denies any fevers. Describes loss of appetite as well as nonbilious nonbloody emesis. Denies any diarrhea or constipation. Denies any urinary complaints. Denies any abdominal surgeries previously. His no headaches but does endorse a feeling of lightheadedness and feels like his head is heavy that resolves when he rests it. He skin pink this may be related to dehydration. He has no other acute complaints at this time. He was not vaccinated for COVID-19. Patient does have a history of chronic chest pain. - Related Data Home Medications Medication Instructions Recorded Confirmed Losartan Potassium 50 mg PO BID 03/14/21 05/20/21 Sertraline [Zoloft] 100 mg PO DAILY 03/14/21 05/20/21 busPIRone HCL [Buspar] 7.5 mg PO TID 03/14/21 05/20/21 hydrOXYzine pamoate [hydrOXYzine 50 mg PO HS 03/14/21 05/20/21 PAMOATE] Baclofen [Lioresal] 20 mg PO TID 05/20/21 05/20/21 Carvedilol [Coreg] 6.25 mg PO BID 05/20/21 05/20/21 Citalopram Hydrobromide 20 mg PO DAILY 05/20/21 05/20/21 [Citalopram HBr] Ibuprofen [Motrin] 800 mg PO Q8H PRN 05/20/21 05/20/21 Nicotine [Nicotrol] 10 mg INHALATION Q4H PRN 05/20/21 05/20/21 OLANZapine 5 mg PO DAILY 05/20/21 05/20/21 Pantoprazole Sodium 40 mg PO DAILY 05/20/21 05/20/21 Varenicline Tartrate [Chantix 0.5 mg PO BID 05/20/21 05/20/21 Starter Pack] Previous Rx's Medication Instructions Recorded Valsartan [Diovan] 320 mg PO DAILY #90 tab 03/10/21 amLODIPine [Norvasc] 10 mg PO DAILY #90 tablet 03/10/21 Aspirin 81 mg PO DAILY #30 chew 03/11/21 Atorvastatin [Lipitor] 20 mg PO HS #30 tab 03/11/21 Nitroglycerin Sl Tabs [Nitrostat] 0.4 mg SUBLINGUAL Q5M PRN #20 tab 03/11/21 hydroCHLOROthiazide 25 mg PO DAILY #90 tablet 03/12/21 Metoprolol Tartrate [Lopressor] 25 mg PO BID #60 tab 03/17/21 Allergies Allergy/AdvReac Type Severity Reaction Status Date / Time tramadol Allergy Severe Itching Verified 08/03/21 19:59 Review of Systems ROS Statement: Those systems with pertinent positive or pertinent negative responses have been documented in the HPI. Review of Systems: CONST: Denies fever EYES: Denies blurry vision ENT: Denies nasal congestion C/V: Endorses chest pain RESP: Denies shortness of breath GI: Denies abdominal pain : Denies dysuria SKIN: Denies rash. MSK: Denies joint pain. NEURO: Denies headache ROS Other: All systems not noted in ROS Statement are negative. Past Medical History Past Medical History: Coronary Artery Disease (CAD), Chest Pain / Angina, Hyperlipidemia, Hypertension, Myocardial Infarction ([place]) Additional Past Medical History / Comment(s): Recent bronchitis History of Any Multi-Drug Resistant Organisms: None Reported Past Surgical History: No Surgical Hx Reported, Heart Catheterization Past Anesthesia/Blood Transfusion Reactions: No Reported Reaction Additional Past Anesthesia/Blood Transfusion Reaction / Comment(s): Pt has never had surgery. Past Psychological History: Anxiety, Bipolar, Depression, Panic Disorder Smoking Status: Former smoker Past Drug Use History: None Reported - Past Family History Father Family Medical History: Myocardial Infarction ([place]) Additional Family Medical History / Comment(s): Father of a ID at the age of 41 yrs. Mother Family Medical History: Diabetes Mellitus General Exam - General Exam Comments Initial Comments: General: Appears in no acute distress. HEAD: Normal with no signs of head trauma. EYES: PERRLA, EOMI, conjunctiva normal, no discharge. ENT: Hearing grossly intact, normal oropharynx. RESPIRATORY: Clear breath sounds bilaterally. No wheezes, rales, or rhonchi. C/V: Regular rate and rhythm. S1 and S2 auscultated, no edema, peripheral pulses 2+ and intact throughout. Chest pain is somewhat reproducible on palpation over the inferior aspect of the sternum and mildly in the epigastric region of the abdomen. ABD: Abdomen soft, nondistended. Patient is mild tenderness to palpation epigastric region. No rebound tenderness. No peritoneal signs. No guarding. EXT: Normal range of motion, no obvious deformity SKIN: No rashes or lesions observed on exposed skin. NEURO: Alert and oriented 4. No focal sensory or strength deficits. Limitations: no limitations Course Vital Signs 08/03/21 08/03/21 19:55 20:52 Temperature 98.2 F Pulse Rate 80 62 Respiratory 18 18 Rate Blood Pressure 136/86 132/79 O2 Sat by Pulse 95 96 Oximetry Medical Decision Making - Medical Decision Making Is in the patient's presentation and physical exam, he is having epigastric abdominal pain as well as lower substernal chest pain. With his cardiac history we'll obtain a cardiac workup including troponin, EKG, chest x-ray. We will also obtain abdominal laboratory studies as well as a COVID-19 swab. He will be sent likely treated with 1 L fluid bolus, as well as IV Benadryl, Pepcid, morphine, Zofran. He will be given an aspirin. She will be connected to continuous cardiac monitoring while he is here in the department. Patient was in agreement this plan. Patient's EKG shows normal sinus rhythm without any signs of acute ischemic process.Patient's laboratory studies are remarkable for hyponatremia at 131, decreased bicarb of 18, an AK I with an elevated BUNs at 34 and creatinine 1.44. Creatinine is double his baseline which is clearly 0.7-0.8. Is mildly hypercalcemic at 10.6. Troponin is negative. Amylase and lipase are negative. Covid is negative. Remainder of his labs are unremarkable. Chest x-ray revealed no acute cardiopulmonary process.On reevaluation, patient seems improved, however states he is still nauseous. I explained to him that he appears to be dehydrated with an acute kidney injury. Due to the degree of this, I would recommend that we admit him to the hospital for IV fluids. He was in agreement this plan. I spoke with the admitting team under Dr. Collazo who accepted the patient. Patient was admitted to observation in stable condition. We will trend is troponins as well, however his pain is likely gastric in nature. - Lab Data Result diagrams: 08/03/21 20:39 08/03/21 20:39 Lab Results 08/03/21 08/03/21 08/03/21 Range/Units 20:30 20:39 20:39 WBC 7.5 (3.8-10.6) k/uL RBC 4.94 (4.30-5.90) m/uL Hgb 15.0 (13.0-17.5) gm/dL Hct 44.4 (39.0-53.0) % MCV 89.8 (80.0-100.0) fL MCH 30.3 (25.0-35.0) pg MCHC 33.8 (31.0-37.0) g/dL RDW 12.3 (11.5-15.5) % Plt Count 321 (150-450) k/uL MPV 7.6 Neutrophils % 66 % Lymphocytes % 25 % Monocytes % 4 % Eosinophils % 2 % Basophils % 1 % Neutrophils # 4.9 (1.3-7.7) k/uL Lymphocytes # 1.9 (1.0-4.8) k/uL Monocytes # 0.3 (0-1.0) k/uL Eosinophils # 0.2 (0-0.7) k/uL Basophils # 0.0 (0-0.2) k/uL PT 10.7 (9.0-12.0) sec INR 1.0 (<1.2) APTT 22.7 (22.0-30.0) sec Sodium (137-145) mmol/L Potassium (3.5-5.1) mmol/L Chloride (98-107) mmol/L Carbon Dioxide (22-30) mmol/L Anion Gap mmol/L BUN (9-20) mg/dL Creatinine (0.66-1.25) mg/dL Est GFR (CKD-EPI)AfAm (>60 ml/min/1.73 sqM) Est GFR (CKD-EPI)NonAf (>60 ml/min/1.73 sqM) Glucose (74-99) mg/dL Calcium (8.4-10.2) mg/dL Magnesium (1.6-2.3) mg/dL Total Bilirubin (0.2-1.3) mg/dL AST (17-59) U/L ALT (4-49) U/L Alkaline Phosphatase (38-126) U/L Troponin I (0.000-0.034) ng/mL Total Protein (6.3-8.2) g/dL Albumin (3.5-5.0) g/dL Amylase (30-110) U/L Lipase (23-300) U/L Coronavirus (PCR) Not Detected (Not Detectd) 08/03/21 08/03/21 Range/Units 20:39 20:39 WBC (3.8-10.6) k/uL RBC (4.30-5.90) m/uL Hgb (13.0-17.5) gm/dL Hct (39.0-53.0) % MCV (80.0-100.0) fL MCH (25.0-35.0) pg MCHC (31.0-37.0) g/dL RDW (11.5-15.5) % Plt Count (150-450) k/uL MPV Neutrophils % % Lymphocytes % % Monocytes % % Eosinophils % % Basophils % % Neutrophils # (1.3-7.7) k/uL Lymphocytes # (1.0-4.8) k/uL Monocytes # (0-1.0) k/uL Eosinophils # (0-0.7) k/uL Basophils # (0-0.2) k/uL PT (9.0-12.0) sec INR (<1.2) APTT (22.0-30.0) sec Sodium 131 L (137-145) mmol/L Potassium 3.8 (3.5-5.1) mmol/L Chloride 99 (98-107) mmol/L Carbon Dioxide 18 L (22-30) mmol/L Anion Gap 14 mmol/L BUN 34 H (9-20) mg/dL Creatinine 1.44 H (0.66-1.25) mg/dL Est GFR (CKD-EPI)AfAm 66 (>60 ml/min/1.73 sqM) Est GFR (CKD-EPI)NonAf 57 (>60 ml/min/1.73 sqM) Glucose 113 H (74-99) mg/dL Calcium 10.6 H (8.4-10.2) mg/dL Magnesium 1.6 (1.6-2.3) mg/dL Total Bilirubin 0.5 (0.2-1.3) mg/dL AST 30 (17-59) U/L ALT 20 (4-49) U/L Alkaline Phosphatase 70 (38-126) U/L Troponin I <0.012 (0.000-0.034) ng/mL Total Protein 8.3 H (6.3-8.2) g/dL Albumin 5.1 H (3.5-5.0) g/dL Amylase 62 (30-110) U/L Lipase 53 (23-300) U/L Coronavirus (PCR) (Not Detectd) - EKG Data -: EKG Interpreted by Me EKG Comments: 12-lead Electrocardiogram Interpretation Note EKG was reviewed and interpreted by myself. 12-lead ECG performed at 2015 is interpreted by me as revealing normal sinus rhythm at a rate of 69 beats per minute. [place] is normal. [place] interval is 164 ms, QRS duration is 92 ms, QTc is 405 ms.. There were no ST or T wave abnormalities to suggest myocardial ischemia or injury. R wave progression across the precordium was satisfactory. By my interpretation this EKG is non-diagnostic for acute ischemia. Disposition Clinical Impression: AUGUSTIN (acute kidney injury), Dehydration, Hyponatremia Disposition: ADMITTED IP TO THIS HOSP Condition: Stable Referrals: Jorge Lopez MD [Primary Care Provider] - 1-2 days
[2021-08-03 20:46] LABS: Basophils % (A) 1 %; Eosinophils # (A) 0.2 k/uL (0-0.7); Eosinophils % (A) 2 %; HCT 44.4 % (39.0-53.0); Lymphocytes # (A) 1.9 k/uL (1.0-4.8); Lymphocytes % (A) 25 %; MCH 30.3 pg (25.0-35.0); MCHC 33.8 g/dL (31.0-37.0); MCV 89.8 fL (80.0-100.0); Mean Platelet Volume 7.6; Monocytes # (A) 0.3 k/uL (0-1.0); Monocytes % (A) 4 %; Neutrophils # (A) 4.9 k/uL (1.3-7.7); Neutrophils % (A) 66 %; Platelet Count 321 k/uL (150-450); RBC 4.94 m/uL (4.30-5.90); RDW 12.3 % (11.5-15.5); WBC 7.5 k/uL (3.8-10.6)
[2021-08-03 20:58] LABS: Albumin 5.1 g/dL (3.5-5.0); Calcium 10.6 mg/dL (8.4-10.2); Magnesium 1.6 mg/dL (1.6-2.3); Potassium 3.8 mmol/L (3.5-5.1); Total Bilirubin 0.5 mg/dL (0.2-1.3); Total Protein 8.3 g/dL (6.3-8.2)
[2021-08-03 21:01] LABS: Partial Thromboplastin Time 22.7 sec (22.0-30.0); Prothrombin Time 10.7 sec (9.0-12.0)
--- NOTE | 2021-08-03 21:10 | XR ---
EXAMINATION TYPE: XR chest 2V DATE OF EXAM: 08/03/2021 COMPARISON: 05/20/2021 HISTORY: Chest pain TECHNIQUE: 2 views FINDINGS: Heart and mediastinum are normal. Lungs are clear. Diaphragm is normal. Bony thorax appears normal. IMPRESSION: Normal chest. No change.
[2021-08-03] MEDS ORDERED: LIDOCAINE VISCOUS 2% 15 ML CUP MUCOUS MEM ONE (21:14)
[2021-08-03] MEDS ORDERED: MORPHINE SULFATE 4 MG/ML SYRINGE IV PRN (21:28)
[2021-08-03] MEDS ORDERED: NALOXONE 0.4 MG/ML 1 ML VIAL IV PRN (21:28)
[2021-08-03] MEDS ORDERED: ONDANSETRON 4 MG/2 ML VIAL IVP PRN (21:28)
[2021-08-03] MEDS ORDERED: SODIUM CHLORIDE 0.9% 1,000 ML IV SCH (21:30)
[2021-08-04] MEDS: HEPARIN SODIUM,PORCINE/PF 5,000 UNIT/0.5 ML SYRINGE SQ SCH ×2 (03:01→09:30)
[2021-08-04 03:57] LABS: Basophils % (A) 0 %; Eosinophils # (A) 0.1 k/uL (0-0.7); Eosinophils % (A) 2 %; HCT 41.3 % (39.0-53.0); HGB 13.8 gm/dL (13.0-17.5); Lymphocytes % (A) 39 %; MCH 30.5 pg (25.0-35.0); MCHC 33.4 g/dL (31.0-37.0); MCV 91.2 fL (80.0-100.0); Mean Platelet Volume 7.9; Monocytes # (A) 0.4 k/uL (0-1.0); Monocytes % (A) 5 %; Neutrophils % (A) 52 %; Platelet Count 298 k/uL (150-450); RBC 4.53 m/uL (4.30-5.90); RDW 12.5 % (11.5-15.5); WBC 7.8 k/uL (3.8-10.6)
[2021-08-04 04:13] LABS: Calcium 10.2 mg/dL (8.4-10.2); Magnesium 1.6 mg/dL (1.6-2.3); Potassium 3.7 mmol/L (3.5-5.1)
[2021-08-04 07:59] VITALS: BP 121/82; PULSE 56; RESP 16; TEMP 98.1
[2021-08-04] MEDS ORDERED: BACLOFEN 10 MG TAB PO PRN (09:56)
[2021-08-04] MEDS ORDERED: NITROGLYCERIN SL TABS 0.4 MG TAB SUBLINGUAL PRN (09:56)
[2021-08-04] MEDS ORDERED: busPIRone HCl 5 MG TAB PO SCH (16:00)
--- NOTE | 2021-08-04 16:13 | P.HPIM ---
History of Present Illness 45-year-old male with known history of previous DE came in with compensative chest pain three-day history. But aspiration patient was comparing of specific pain patient was also concern about weakness in the left arm although upon neuro exam patient has 5/5 strength in the left upper extremity and reflexes are within normal limits. Patient is on multiple medications and is bit hypotensive and hyponatremic. Patient is also on diuretic therapy. Patient was comparing of lightheadedness. Patient has multiple nonspecific symptoms REVIEW OF SYSTEMS: CONSTITUTIONAL: No fever, no malaise, no fatigue. HEENT: No recent visual problems or hearing problems. Denied any sore throat. CARDIOVASCULAR:orthopnea, PND, no palpitations, no syncope. PULMONARY: No shortness of breath, no cough, no hemoptysis. GASTROINTESTINAL: No diarrhea, no nausea, no vomiting, no abdominal pain. NEUROLOGICAL: No headaches and as mentioned in HPI HEMATOLOGICAL: Denies any bleeding or petechiae. GENITOURINARY: Denies any burning micturition, frequency, or urgency. MUSCULOSKELETAL/RHEUMATOLOGICAL: Denies any joint pain, swelling, or any muscle pain. ENDOCRINE: Denies any polyuria or polydipsia. The rest of the 14-point review of systems is negative. PHYSICAL EXAMINATION: GENERAL: The patient is alert and oriented x3, not in any acute distress. Well developed, well nourished. HEENT: Pupils are round and equally reacting to light. EOMI. No scleral icterus. No conjunctival pallor. Normocephalic, atraumatic. No pharyngeal erythema. No thyromegaly. CARDIOVASCULAR: S1 and S2 present. No murmurs, rubs, or gallops. PULMONARY: Chest is clear to auscultation, no wheezing or crackles. ABDOMEN: Soft, nontender, nondistended, normoactive bowel sounds. No palpable organomegaly. MUSCULOSKELETAL: No joint swelling or deformity. EXTREMITIES: No cyanosis, clubbing, or pedal edema. NEUROLOGICAL: Gross neurological examination did not reveal any focal deficits. SKIN: No rashes. Assessment and plan -Hyponatremia: Secondary to diuretics patient was started on IV fluids hold off diuretics patient is hypotensive as well -Hypotension as per the documentation patient is on 2 angiotensin receptor blockers and to beta blockers patient is mildly sinus bradycardic as well will hold off on beta blockers other his medications because of above-mentioned patient was started on IV fluids -Chest pain: Atypical noncardiac troponins were negative EKG within normal limits -Hyperlipidemia -Hypertension presently is presently hypotensive -Coronary artery disease history -Specific pain pain is pretty nonspecific will obtain urine analysis DVT prophylaxis: Early ambulation Past Medical History Past Medical History: Coronary Artery Disease (CAD), Chest Pain / Angina, Hyperlipidemia, Hypertension, Myocardial Infarction ([place]) Additional Past Medical History / Comment(s): Recent bronchitis History of Any Multi-Drug Resistant Organisms: None Reported Past Surgical History: No Surgical Hx Reported, Heart Catheterization Past Anesthesia/Blood Transfusion Reactions: No Reported Reaction Additional Past Anesthesia/Blood Transfusion Reaction / Comment(s): Pt has never had surgery. Past Psychological History: Anxiety, Bipolar, Depression, Panic Disorder Smoking Status: Former smoker Past Drug Use History: None Reported - Past Family History Father Family Medical History: Myocardial Infarction ([place]) Additional Family Medical History / Comment(s): Father of a DE at the age of 41 yrs. Mother Family Medical History: Diabetes Mellitus Medications and Allergies Home Medications Medication Instructions Recorded Confirmed Type Valsartan [Diovan] 320 mg PO DAILY #90 tab 03/10/21 08/04/21 Rx amLODIPine [Norvasc] 10 mg PO DAILY #90 tablet 03/10/21 08/04/21 Rx Atorvastatin [Lipitor] 20 mg PO HS #30 tab 03/11/21 08/03/21 Rx Nitroglycerin Sl Tabs [Nitrostat] 0.4 mg SUBLINGUAL Q5M PRN #20 tab 03/11/21 08/03/21 Rx hydroCHLOROthiazide 25 mg PO DAILY #90 tablet 03/12/21 08/04/21 Rx Sertraline [Zoloft] 100 mg PO DAILY 03/14/21 08/03/21 History busPIRone HCL [Buspar] 7.5 mg PO TID 03/14/21 08/03/21 History hydrOXYzine pamoate [hydrOXYzine 50 mg PO HS 03/14/21 08/03/21 History PAMOATE] Baclofen [Lioresal] 20 mg PO TID PRN 05/20/21 08/03/21 History Carvedilol [Coreg] 6.25 mg PO BID 05/20/21 08/04/21 History Ibuprofen [Motrin] 800 mg PO Q8H PRN 05/20/21 08/03/21 History Pantoprazole Sodium 40 mg PO DAILY 05/20/21 08/03/21 History cloNIDine HCL 0.1 mg PO TID 08/03/21 08/04/21 History Allergies Allergy/AdvReac Type Severity Reaction Status Date / Time tramadol Allergy Severe Itching Verified 08/03/21 22:31 Physical Exam Vitals: Vital Signs Temp Pulse Resp BP Pulse Ox 08/04/21 07:56 98.1 F 56 L 16 121/82 97 08/04/21 05:30 64 13 102/60 96 08/04/21 04:00 54 L 21 103/75 93 L 08/04/21 01:00 56 L 13 106/83 92 L 08/03/21 22:30 59 L 20 113/71 95 08/03/21 22:00 58 L 19 118/63 96 08/03/21 21:30 58 L 16 128/75 95 08/03/21 21:10 57 L 18 128/75 95 08/03/21 20:52 62 18 132/79 96 08/03/21 19:55 98.2 F 80 18 136/86 95 Results CBC & Chem 7: 08/04/21 03:33 08/04/21 03:33 Labs: Abnormal Lab Results - Last 24 Hours (Table) 08/03/21 08/04/21 Range/Units 20:39 03:33 Sodium 131 L 134 L (137-145) mmol/L Carbon Dioxide 18 L (22-30) mmol/L BUN 34 H 25 H (9-20) mg/dL Creatinine 1.44 H (0.66-1.25) mg/dL Glucose 113 H 102 H (74-99) mg/dL Calcium 10.6 H (8.4-10.2) mg/dL Total Protein 8.3 H (6.3-8.2) g/dL Albumin 5.1 H (3.5-5.0) g/dL
[2021-08-04] MEDS ORDERED: ATORVASTATIN 20 MG TAB PO SCH (21:00)
[2021-08-04] MEDS ORDERED: METOPROLOL TARTRATE 25 MG TAB PO SCH (21:00)
[2021-08-05] MEDS ORDERED: SERTRALINE 100 MG TAB PO SCH (09:00)
[2021-08-05] MEDS ORDERED: OLANZapine 5 MG TAB PO SCH (09:00)
[2021-08-05] MEDS ORDERED: PANTOPRAZOLE SODIUM 40 MG GRANULE PKT PO SCH (09:00)
[2021-08-05] MEDS ORDERED: CITALOPRAM HYDROBROMIDE 20 MG TAB PO SCH (09:00)
== END 2021-08-04 15:40 | disposition left against medical advice (07) ==
LOC: EC 19:51 → 1SOBS 21:23 → 6NMEDSUR 22:43
PROVIDERS: ADMIT Internal Medicine; ATTEND Internal Medicine
DX: E87.1 Hypo-osmolality and hyponatremia (principal); T50.2X5A Adverse effect of carbonic-anhydrase inhibitors, benzothiadiazides and other diuretics, initial encounter; N17.9 Acute kidney failure, unspecified; E86.0 Dehydration; I95.9 Hypotension, unspecified; G89.29 Other chronic pain; R07.89 Other chest pain; I10 Essential (primary) hypertension; I25.10 Atherosclerotic heart disease of native coronary artery without angina pectoris; E78.5 Hyperlipidemia, unspecified; E83.52 Hypercalcemia; I25.2 Old myocardial infarction; R00.1 Bradycardia, unspecified; R10.13 Epigastric pain; F31.9 Bipolar disorder, unspecified; F41.0 Panic disorder [episodic paroxysmal anxiety]; F41.9 Anxiety disorder, unspecified; Z20.822 Contact with and (suspected) exposure to COVID-19; Z79.82 Long term (current) use of aspirin; Z79.899 Other long term (current) drug therapy; Z88.5 Allergy status to narcotic agent; Z98.890 Other specified postprocedural states; Z87.891 Personal history of nicotine dependence; Z87.09 Personal history of other diseases of the respiratory system; Z83.3 Family history of diabetes mellitus; Z82.49 Family history of ischemic heart disease and other diseases of the circulatory system
CPT/HCPCS: 96376; 96361 ×2; 96372; 96374; 96375; 99285; 36415; 93005; 80053; 80048; 82150; 83690; 83735 ×2; 84484 ×2; 85025 ×2; 85610; 85730; 87635; 71046; G0378 ×3; J2270 ×2; J1200; J2405; J1644

== ENCOUNTER 2021-08-04 22:29 | Emergency (ER) | payer MEDICARE, OTHER ==
[2021-08-04 23:25] VITALS: BP 175/90; PULSE 73; RESP 19; TEMP 98.1
[2021-08-05] MEDS ORDERED: SODIUM CHLORIDE 0.9% 1,000 ML IV STA (00:19)
[2021-08-05] MEDS ORDERED: HYDROmorphone 1 MG/ML 1 ML SYRINGE IVP STA (00:19)
[2021-08-05 01:00] LABS: Basophils % (A) 0 %; Eosinophils # (A) 0.1 k/uL (0-0.7); Eosinophils % (A) 1 %; HCT 39.5 % (39.0-53.0); HGB 13.6 gm/dL (13.0-17.5); Lymphocytes % (A) 17 %; MCH 30.7 pg (25.0-35.0); MCHC 34.4 g/dL (31.0-37.0); MCV 89.3 fL (80.0-100.0); Mean Platelet Volume 7.7; Monocytes # (A) 0.5 k/uL (0-1.0); Monocytes % (A) 4 %; Neutrophils # (A) 9.1 k/uL (1.3-7.7); Neutrophils % (A) 76 %; Platelet Count 290 k/uL (150-450); RBC 4.42 m/uL (4.30-5.90); RDW 12.3 % (11.5-15.5)
--- NOTE | 2021-08-05 01:21 | ED ---
Abdominal Pain HPI - General Chief Complaint: Abdominal Pain Stated Complaint: Revisit Abd Pain Time Seen by Provider: 08/05/21 00:12 Source: patient, RN notes reviewed Mode of arrival: ambulatory - History of Present Illness Initial Comments: Patient is a 45-year-old male that presents to emergency room complaining of abdominal pain. He notes that he was admitted to the hospital last night but left AMA in the morning. He came back complaining of the same pain. Stated that he might have a abdominal infection. He was informed that all his lab work came back within normal limits minus acute kidney injury and dehydration. Patient was resting comfortable and bed in no apparent distress or pain. He denied any pain on a scale 1-10. He denied chest pain shortness of breath headache nausea vomiting diarrhea constipation fever fatigue chills. - Related Data Home Medications Medication Instructions Recorded Confirmed Sertraline [Zoloft] 100 mg PO DAILY 03/14/21 08/03/21 busPIRone HCL [Buspar] 7.5 mg PO TID 03/14/21 08/03/21 hydrOXYzine pamoate [hydrOXYzine 50 mg PO HS 03/14/21 08/03/21 PAMOATE] Baclofen [Lioresal] 20 mg PO TID PRN 05/20/21 08/03/21 Carvedilol [Coreg] 6.25 mg PO BID 05/20/21 08/04/21 Ibuprofen [Motrin] 800 mg PO Q8H PRN 05/20/21 08/03/21 Pantoprazole Sodium 40 mg PO DAILY 05/20/21 08/03/21 cloNIDine HCL 0.1 mg PO TID 08/03/21 08/04/21 Previous Rx's Medication Instructions Recorded Valsartan [Diovan] 320 mg PO DAILY #90 tab 03/10/21 amLODIPine [Norvasc] 10 mg PO DAILY #90 tablet 03/10/21 Atorvastatin [Lipitor] 20 mg PO HS #30 tab 03/11/21 Nitroglycerin Sl Tabs [Nitrostat] 0.4 mg SUBLINGUAL Q5M PRN #20 tab 03/11/21 hydroCHLOROthiazide 25 mg PO DAILY #90 tablet 03/12/21 Allergies Allergy/AdvReac Type Severity Reaction Status Date / Time tramadol Allergy Severe Itching Verified 08/04/21 23:25 Review of Systems ROS Statement: Those systems with pertinent positive or pertinent negative responses have been documented in the HPI. ROS Other: All systems not noted in ROS Statement are negative. Past Medical History Past Medical History: Coronary Artery Disease (CAD), Chest Pain / Angina, Hyperlipidemia, Hypertension, Myocardial Infarction ([place]) Additional Past Medical History / Comment(s): Recent bronchitis History of Any Multi-Drug Resistant Organisms: None Reported Past Surgical History: No Surgical Hx Reported, Heart Catheterization Past Anesthesia/Blood Transfusion Reactions: No Reported Reaction Additional Past Anesthesia/Blood Transfusion Reaction / Comment(s): Pt has never had surgery. Past Psychological History: Anxiety, Bipolar, Depression, Panic Disorder Smoking Status: Former smoker Past Drug Use History: None Reported - Past Family History Father Family Medical History: Myocardial Infarction ([place]) Additional Family Medical History / Comment(s): Father of a [place] at the age of 41 yrs. Mother Family Medical History: Diabetes Mellitus General Exam General appearance: alert, in no apparent distress Head exam: Present: atraumatic, normocephalic, normal inspection Eye exam: Present: normal appearance, PERRL, EOMI. Absent: scleral icterus, conjunctival injection, periorbital swelling ENT exam: Present: normal exam, mucous membranes moist Neck exam: Present: normal inspection Respiratory exam: Present: normal lung sounds bilaterally. Absent: respiratory distress, wheezes, rales, rhonchi, stridor Cardiovascular Exam: Present: regular rate, normal rhythm, normal heart sounds. Absent: systolic murmur, diastolic murmur, rubs, gallop, clicks GI/Abdominal exam: Present: soft, normal bowel sounds. Absent: distended, tenderness, guarding, rebound, rigid Extremities exam: Present: normal inspection, full ROM, normal capillary refill. Absent: tenderness, pedal edema, joint swelling, calf tenderness Neurological exam: Present: alert, oriented X3 Psychiatric exam: Present: normal affect, normal mood Skin exam: Present: warm, dry, intact, normal color. Absent: rash Course Vital Signs 08/04/21 23:23 Temperature 98.1 F Pulse Rate 73 Respiratory 19 Rate Blood Pressure 175/90 O2 Sat by Pulse 97 Oximetry Medical Decision Making - Medical Decision Making 45-year-old male complaining of abdominal pain, left AMA from the hospital yesterday morning. Labs, 1 L normal saline ordered. 1 mg of Dilaudid ordered for pain. Labs unremarkable, kidney function is improved significantly. Labs: CBC White blood cells 12.0 rest unremarkable, CMP unremarkable. Case discussed with Dr. Gerardo, patient discharge home with follow-up primary care. - Lab Data Result diagrams: 08/05/21 00:26 08/05/21 00:26 Lab Results 08/05/21 08/05/21 Range/Units 00:26 00:26 WBC 12.0 H (3.8-10.6) k/uL RBC 4.42 (4.30-5.90) m/uL Hgb 13.6 (13.0-17.5) gm/dL Hct 39.5 (39.0-53.0) % MCV 89.3 (80.0-100.0) fL MCH 30.7 (25.0-35.0) pg MCHC 34.4 (31.0-37.0) g/dL RDW 12.3 (11.5-15.5) % Plt Count 290 (150-450) k/uL MPV 7.7 Neutrophils % 76 % Lymphocytes % 17 % Monocytes % 4 % Eosinophils % 1 % Basophils % 0 % Neutrophils # 9.1 H (1.3-7.7) k/uL Lymphocytes # 2.0 (1.0-4.8) k/uL Monocytes # 0.5 (0-1.0) k/uL Eosinophils # 0.1 (0-0.7) k/uL Basophils # 0.0 (0-0.2) k/uL Sodium 129 L (137-145) mmol/L Potassium 3.7 (3.5-5.1) mmol/L Chloride 98 (98-107) mmol/L Carbon Dioxide 20 L (22-30) mmol/L Anion Gap 11 mmol/L BUN 18 (9-20) mg/dL Creatinine 1.13 (0.66-1.25) mg/dL Est GFR (CKD-EPI)AfAm 89 (>60 ml/min/1.73 sqM) Est GFR (CKD-EPI)NonAf 77 (>60 ml/min/1.73 sqM) Glucose 106 H (74-99) mg/dL Calcium 10.3 H (8.4-10.2) mg/dL Total Bilirubin 0.4 (0.2-1.3) mg/dL AST 33 (17-59) U/L ALT 20 (4-49) U/L Alkaline Phosphatase 73 (38-126) U/L Total Protein 7.6 (6.3-8.2) g/dL Albumin 4.7 (3.5-5.0) g/dL Disposition Clinical Impression: Abdominal pain, Leukocytosis Disposition: HOME SELF-CARE Condition: Stable Instructions (If sedation given, give patient instructions): Abdominal Pain (ED) Additional Instructions: Please return to the Emergency Department if symptoms worsen or any other concerns. Follow-up with primary care 1-2 days. Take Tylenol and/or Motrin as needed for pain. Is patient prescribed a controlled substance at d/c from ED?: No Referrals: Jorge Lopez MD [Primary Care Provider] - 1-2 days Time of Disposition: 01:58
[2021-08-05 01:23] LABS: Albumin 4.7 g/dL (3.5-5.0); Calcium 10.3 mg/dL (8.4-10.2); Potassium 3.7 mmol/L (3.5-5.1); Total Bilirubin 0.4 mg/dL (0.2-1.3); Total Protein 7.6 g/dL (6.3-8.2)
[2021-08-05 02:43] LABS: Appearance,Urine Clear (Clear); Bilirubin,Urine Negative (Negative); Blood,Urine Negative (Negative); Color,Urine Yellow; Glucose,Urine (UA) Negative (Negative); Ketones,Urine Negative (Negative); Leukocyte Esterase,Urine Negative (Negative); Nitrite,Urine Negative (Negative); PH, Urine 5.5 (5.0-8.0); Protein,Urine Negative (Negative); Specific Gravity,Urine 1.014 (1.001-1.035); Urobilinogen,Urine <2.0 mg/dL (<2.0)
== END 2021-08-05 03:02 | disposition home or self-care (01) ==
LOC: EC 22:29
DX: R10.9 Unspecified abdominal pain (principal); D72.829 Elevated white blood cell count, unspecified; I25.10 Atherosclerotic heart disease of native coronary artery without angina pectoris; E78.5 Hyperlipidemia, unspecified; I10 Essential (primary) hypertension; I25.2 Old myocardial infarction; F41.9 Anxiety disorder, unspecified; F31.9 Bipolar disorder, unspecified; Z88.1 Allergy status to other antibiotic agents; Z87.891 Personal history of nicotine dependence
CPT/HCPCS: 99284; 96374; 96361 ×2; 36415; 80053; 85025; 81003; J1170

== ENCOUNTER 2021-08-17 21:17 | Emergency (ER) | payer MEDICARE, OTHER ==
[2021-08-17 21:26] VITALS: RESP 18
--- NOTE | 2021-08-17 21:44 | ED ---
Syncope HPI - General Chief Complaint: Dizziness Stated Complaint: Syncope Time Seen by Provider: 08/17/21 21:25 Source: patient, EMS Mode of arrival: EMS Limitations: no limitations - History of Present Illness Initial Comments: This patient is a 45-year-old man who presents to be evaluated for episode of lightheadedness and feeling faint. The patient reportedly started after he had eaten he had also started a new medication today starting on metoprolol. Patient states that last week a number of his antihypertensive medicines had been stopped. The patient denied having chest pain, dyspnea, palpitations, nausea or vomiting. MD Complaint: felt faint, almost passed out -: minutes(s) Prodromal Symptoms: lightheaded Injuries Sustained Associated with Event: None Current Symptoms: back to baseline Context: standing up Treatments Prior to Arrival: none - Related Data Home Medications Medication Instructions Recorded Confirmed busPIRone HCL [Buspar] 7.5 mg PO TID 03/14/21 08/17/21 hydrOXYzine pamoate [hydrOXYzine 50 mg PO HS 03/14/21 08/17/21 PAMOATE] Baclofen [Lioresal] 20 mg PO TID PRN 05/20/21 08/17/21 Pantoprazole Sodium 40 mg PO DAILY 05/20/21 08/17/21 Citalopram Hydrobromide [CeleXA] 20 mg PO DAILY 08/17/21 08/17/21 Loratadine [Claritin] 10 mg PO DAILY 08/17/21 08/17/21 Metoprolol Tartrate [Lopressor] 25 mg PO BID 08/17/21 08/17/21 Omeprazole 20 mg PO BID 08/17/21 08/17/21 Sucralfate [Carafate] 1 gm PO BID 08/17/21 08/17/21 Previous Rx's Medication Instructions Recorded Atorvastatin [Lipitor] 20 mg PO HS #30 tab 03/11/21 Nitroglycerin Sl Tabs [Nitrostat] 0.4 mg SUBLINGUAL Q5M PRN #20 tab 03/11/21 Allergies Allergy/AdvReac Type Severity Reaction Status Date / Time tramadol Allergy Severe Itching Verified 08/17/21 22:09 Review of Systems ROS Statement: Those systems with pertinent positive or pertinent negative responses have been documented in the HPI. ROS Other: All systems not noted in ROS Statement are negative. Constitutional: Denies: fever, chills, weakness Eyes: Denies: vision change Respiratory: Denies: cough, dyspnea Cardiovascular: Reports: syncope (Near-syncope). Denies: chest pain, palpitations, orthopnea, edema Gastrointestinal: Denies: abdominal pain, nausea, vomiting, diarrhea Genitourinary: Denies: dysuria, hematuria Musculoskeletal: Denies: back pain Skin: Denies: rash Neurological: Denies: headache, weakness, numbness Past Medical History Past Medical History: Coronary Artery Disease (CAD), Chest Pain / Angina, Hyperlipidemia, Hypertension, Myocardial Infarction ([place]) Additional Past Medical History / Comment(s): Recent bronchitis History of Any Multi-Drug Resistant Organisms: None Reported Past Surgical History: No Surgical Hx Reported, Heart Catheterization Past Anesthesia/Blood Transfusion Reactions: No Reported Reaction Additional Past Anesthesia/Blood Transfusion Reaction / Comment(s): Pt has never had surgery. Past Psychological History: Anxiety, Bipolar, Depression, Panic Disorder Smoking Status: Former smoker Past Alcohol Use History: None Reported Past Drug Use History: Marijuana - Past Family History Father Family Medical History: Myocardial Infarction ([place]) Additional Family Medical History / Comment(s): Father of a [place] at the age of 41 yrs. Mother Family Medical History: Diabetes Mellitus General Exam Limitations: no limitations General appearance: alert, in no apparent distress Head exam: Present: atraumatic, normocephalic Eye exam: Present: normal appearance. Absent: scleral icterus, conjunctival injection ENT exam: Present: normal oropharynx Neck exam: Present: normal inspection Respiratory exam: Present: normal lung sounds bilaterally. Absent: respiratory distress, wheezes, rales, rhonchi, stridor Cardiovascular Exam: Present: regular rate, normal rhythm, normal heart sounds. Absent: systolic murmur, diastolic murmur, rubs, gallop GI/Abdominal exam: Present: soft. Absent: distended, tenderness, guarding, rebound, rigid, mass Extremities exam: Present: normal inspection, normal capillary refill. Absent: pedal edema, calf tenderness Back exam: Present: normal inspection. Absent: CVA tenderness (R), CVA tenderness (L) Neurological exam: Present: alert Skin exam: Present: warm, dry, intact, normal color. Absent: rash Course Vital Signs 08/17/21 08/17/21 08/18/21 21:19 22:24 00:00 Temperature 98.0 F Pulse Rate 71 64 60 Respiratory 18 18 18 Rate Blood Pressure 170/98 174/93 155/85 O2 Sat by Pulse 97 97 97 Oximetry 08/18/21 00:50 Temperature Pulse Rate 57 L Respiratory 18 Rate Blood Pressure 143/86 O2 Sat by Pulse 97 Oximetry EKG Findings - EKG Results: EKG: interpreted by JAVI, RUBI, sinus rhythm (Rate 68 bpm), normal axis, normal QRS, normal ST/T, no acute changes Medical Decision Making - Lab Data Result diagrams: 08/17/21 22:02 08/17/21 22:02 Lab Results 08/17/21 08/17/21 08/17/21 Range/Units 22:02 22:02 22:02 WBC 10.6 (3.8-10.6) k/uL RBC 4.42 (4.30-5.90) m/uL Hgb 13.3 (13.0-17.5) gm/dL Hct 40.1 (39.0-53.0) % MCV 90.8 (80.0-100.0) fL MCH 30.1 (25.0-35.0) pg MCHC 33.2 (31.0-37.0) g/dL RDW 12.2 (11.5-15.5) % Plt Count 303 (150-450) k/uL MPV 8.4 Neutrophils % 56 % Lymphocytes % 34 % Monocytes % 5 % Eosinophils % 2 % Basophils % 0 % Neutrophils # 5.9 (1.3-7.7) k/uL Lymphocytes # 3.6 (1.0-4.8) k/uL Monocytes # 0.5 (0-1.0) k/uL Eosinophils # 0.2 (0-0.7) k/uL Basophils # 0.1 (0-0.2) k/uL PT 10.7 (9.0-12.0) sec INR 1.0 (<1.2) APTT 24.4 (22.0-30.0) sec Sodium (137-145) mmol/L Potassium (3.5-5.1) mmol/L Chloride (98-107) mmol/L Carbon Dioxide (22-30) mmol/L Anion Gap mmol/L BUN (9-20) mg/dL Creatinine (0.66-1.25) mg/dL Est GFR (CKD-EPI)AfAm (>60 ml/min/1.73 sqM) Est GFR (CKD-EPI)NonAf (>60 ml/min/1.73 sqM) Glucose (74-99) mg/dL Calcium (8.4-10.2) mg/dL Total Bilirubin (0.2-1.3) mg/dL AST (17-59) U/L ALT (4-49) U/L Alkaline Phosphatase (38-126) U/L Troponin I (0.000-0.034) ng/mL Total Protein (6.3-8.2) g/dL Albumin (3.5-5.0) g/dL Urine Color Light Yellow Urine Appearance Clear (Clear) Urine pH 7.0 (5.0-8.0) Ur Specific [place] 1.006 (1.001-1.035) Urine Protein Negative (Negative) Urine Glucose (UA) Negative (Negative) Urine Ketones Negative (Negative) Urine Blood Negative (Negative) Urine Nitrite Negative (Negative) Urine Bilirubin Negative (Negative) Urine Urobilinogen <2.0 (<2.0) mg/dL Ur Leukocyte Esterase Negative (Negative) Serum Alcohol mg/dL 08/17/21 08/17/21 Range/Units 22:02 22:02 WBC (3.8-10.6) k/uL RBC (4.30-5.90) m/uL Hgb (13.0-17.5) gm/dL Hct (39.0-53.0) % MCV (80.0-100.0) fL MCH (25.0-35.0) pg MCHC (31.0-37.0) g/dL RDW (11.5-15.5) % Plt Count (150-450) k/uL MPV Neutrophils % % Lymphocytes % % Monocytes % % Eosinophils % % Basophils % % Neutrophils # (1.3-7.7) k/uL Lymphocytes # (1.0-4.8) k/uL Monocytes # (0-1.0) k/uL Eosinophils # (0-0.7) k/uL Basophils # (0-0.2) k/uL PT (9.0-12.0) sec INR (<1.2) APTT (22.0-30.0) sec Sodium 132 L (137-145) mmol/L Potassium 4.1 (3.5-5.1) mmol/L Chloride 98 (98-107) mmol/L Carbon Dioxide 24 (22-30) mmol/L Anion Gap 10 mmol/L BUN 8 L (9-20) mg/dL Creatinine 0.75 (0.66-1.25) mg/dL Est GFR (CKD-EPI)AfAm >90 (>60 ml/min/1.73 sqM) Est GFR (CKD-EPI)NonAf >90 (>60 ml/min/1.73 sqM) Glucose 100 H (74-99) mg/dL Calcium 9.9 (8.4-10.2) mg/dL Total Bilirubin 0.2 (0.2-1.3) mg/dL AST 29 (17-59) U/L ALT 27 (4-49) U/L Alkaline Phosphatase 62 (38-126) U/L Troponin I <0.012 (0.000-0.034) ng/mL Total Protein 7.4 (6.3-8.2) g/dL Albumin 4.7 (3.5-5.0) g/dL Urine Color Urine Appearance (Clear) Urine pH (5.0-8.0) Ur Specific [place] (1.001-1.035) Urine Protein (Negative) Urine Glucose (UA) (Negative) Urine Ketones (Negative) Urine Blood (Negative) Urine Nitrite (Negative) Urine Bilirubin (Negative) Urine Urobilinogen (<2.0) mg/dL Ur Leukocyte Esterase (Negative) Serum Alcohol <10 mg/dL Disposition Clinical Impression: Syncope Disposition: HOME SELF-CARE Condition: Good Instructions (If sedation given, give patient instructions): Syncope (DC) Is patient prescribed a controlled substance at d/c from ED?: No Referrals: Jorge Lopez MD [Primary Care Provider] - 1-2 days
[2021-08-17] MEDS ORDERED: SODIUM CHLORIDE 0.9% 500 ML 500 ML IV STA (21:57)
[2021-08-17 22:15] LABS: Basophils # (A) 0.1 k/uL (0-0.2); Basophils % (A) 0 %; Eosinophils # (A) 0.2 k/uL (0-0.7); Eosinophils % (A) 2 %; HCT 40.1 % (39.0-53.0); HGB 13.3 gm/dL (13.0-17.5); Lymphocytes # (A) 3.6 k/uL (1.0-4.8); Lymphocytes % (A) 34 %; MCH 30.1 pg (25.0-35.0); MCHC 33.2 g/dL (31.0-37.0); MCV 90.8 fL (80.0-100.0); Mean Platelet Volume 8.4; Monocytes # (A) 0.5 k/uL (0-1.0); Monocytes % (A) 5 %; Neutrophils # (A) 5.9 k/uL (1.3-7.7); Neutrophils % (A) 56 %; Platelet Count 303 k/uL (150-450); RBC 4.42 m/uL (4.30-5.90); RDW 12.2 % (11.5-15.5); WBC 10.6 k/uL (3.8-10.6)
[2021-08-17 22:23] LABS: Partial Thromboplastin Time 24.4 sec (22.0-30.0); Prothrombin Time 10.7 sec (9.0-12.0)
--- NOTE | 2021-08-17 22:23 | XR ---
EXAMINATION TYPE: XR chest 2V DATE OF EXAM: 08/17/2021 COMPARISON: 08/03/2021 HISTORY: Syncope TECHNIQUE: FINDINGS: Heart and mediastinum are normal. Lungs are clear. Diaphragm is normal. Bony thorax is inta ct. IMPRESSION: Normal chest. No change.
[2021-08-17 22:43] LABS: ALT 27 U/L (4-49); AST 29 U/L (17-59); African American GFR (CKD) >90 (>60 ml/min/1.73 sqM); Albumin 4.7 g/dL (3.5-5.0); Alcohol <10 mg/dL; Alkaline Phosphatase 62 U/L (38-126); Anion Gap 10 mmol/L; Blood Urea Nitrogen 8 mg/dL (9-20); Calcium 9.9 mg/dL (8.4-10.2); Carbon Dioxide 24 mmol/L (22-30); Chloride 98 mmol/L (98-107); Glucose 100 mg/dL (74-99); Non-African American GFR(CKD) >90 (>60 ml/min/1.73 sqM); Potassium 4.1 mmol/L (3.5-5.1); Sodium 132 mmol/L (137-145); Total Bilirubin 0.2 mg/dL (0.2-1.3); Total Protein 7.4 g/dL (6.3-8.2)
[2021-08-17 22:52] LABS: Appearance,Urine Clear (Clear); Bilirubin,Urine Negative (Negative); Blood,Urine Negative (Negative); Color,Urine Light Yellow; Glucose,Urine (UA) Negative (Negative); Ketones,Urine Negative (Negative); Leukocyte Esterase,Urine Negative (Negative); Nitrite,Urine Negative (Negative); Protein,Urine Negative (Negative); Specific Gravity,Urine 1.006 (1.001-1.035); Urobilinogen,Urine <2.0 mg/dL (<2.0)
[2021-08-18] MEDS: METOPROLOL TARTRATE 25 MG TAB PO STA ×2 (00:52→01:07)
[2021-08-18 01:21] VITALS: BP 123/82; PULSE 58; TEMP 98.2
== END 2021-08-18 01:21 | disposition home or self-care (01) ==
LOC: EC 21:17
DX: R55 Syncope and collapse (principal); E78.5 Hyperlipidemia, unspecified; F31.9 Bipolar disorder, unspecified; I10 Essential (primary) hypertension; I25.10 Atherosclerotic heart disease of native coronary artery without angina pectoris; I25.2 Old myocardial infarction; F41.0 Panic disorder [episodic paroxysmal anxiety]; F12.90 Cannabis use, unspecified, uncomplicated; Z87.891 Personal history of nicotine dependence; Z79.899 Other long term (current) drug therapy
CPT/HCPCS: 36415; 93005; 80053; 84484; 85025; 85610; 85730; 81003; 71046; 99284; G0480; 80320

== ENCOUNTER 2021-08-19 18:11 | Inpatient (IN) | payer MEDICARE, OTHER ==
[2021-08-19 18:46] LABS: Basophils % (A) 1 %; Eosinophils # (A) 0.3 k/uL (0-0.7); Eosinophils % (A) 4 %; HCT 39.4 % (39.0-53.0); HGB 13.4 gm/dL (13.0-17.5); Lymphocytes # (A) 2.8 k/uL (1.0-4.8); Lymphocytes % (A) 38 %; MCHC 34.1 g/dL (31.0-37.0); MCV 88.1 fL (80.0-100.0); Mean Platelet Volume 7.4; Monocytes # (A) 0.4 k/uL (0-1.0); Monocytes % (A) 5 %; Neutrophils # (A) 3.9 k/uL (1.3-7.7); Neutrophils % (A) 52 %; Platelet Count 316 k/uL (150-450); RBC 4.47 m/uL (4.30-5.90); RDW 12.8 % (11.5-15.5); WBC 7.5 k/uL (3.8-10.6)
[2021-08-19 18:53] LABS: ALT 26 U/L (4-49); AST 30 U/L (17-59); African American GFR (CKD) >90 (>60 ml/min/1.73 sqM); Albumin 4.8 g/dL (3.5-5.0); Alkaline Phosphatase 66 U/L (38-126); Anion Gap 11 mmol/L; Blood Urea Nitrogen 5 mg/dL (9-20); Calcium 10.1 mg/dL (8.4-10.2); Carbon Dioxide 23 mmol/L (22-30); Chloride 100 mmol/L (98-107); Glucose 98 mg/dL (74-99); Magnesium 1.7 mg/dL (1.6-2.3); Non-African American GFR(CKD) >90 (>60 ml/min/1.73 sqM); Potassium 4.3 mmol/L (3.5-5.1); Sodium 134 mmol/L (137-145); Total Bilirubin 0.3 mg/dL (0.2-1.3); Total Protein 7.6 g/dL (6.3-8.2)
--- NOTE | 2021-08-19 18:59 | XR ---
EXAMINATION TYPE: XR chest 2V DATE OF EXAM: 08/19/2021 COMPARISON: 08/17/2021 HISTORY: Chest pain TECHNIQUE: 2 views FINDINGS: Heart and mediastinum are normal. Lungs are clear. Diaphragm is normal. Bony thorax is inta ct. IMPRESSION: Normal chest. No change.
[2021-08-19 19:02] LABS: INR 0.9 (<1.2); Partial Thromboplastin Time 23.3 sec (22.0-30.0); Prothrombin Time 9.9 sec (9.0-12.0)
--- NOTE | 2021-08-19 20:52 | ED ---
General Adult HPI - General Chief complaint: Chest Pain Stated complaint: chest tightness, abd pain Time Seen by Provider: 08/19/21 20:00 Source: patient, RN notes reviewed Mode of arrival: ambulatory Limitations: no limitations - History of Present Illness Initial comments: Patient is a pleasant 45-year-old male presenting to the emergency Department w ith complaints of chest discomfort. Onset of symptoms was weeks ago. Patient is a poor historian. Patient states he was recently at [facility] secondary to hyponatremia. Patient is also concerned that he could be dehydrated at this time. Patient has difficult time describing his chest discomfort. Patient is on his phone and has difficulty staying away from his phone to provide history. Patient is unclear if he has had previous stress test or heart catheterization. - Related Data Home Medications Medication Instructions Recorded Confirmed busPIRone HCL [Buspar] 7.5 mg PO TID 03/14/21 08/17/21 hydrOXYzine pamoate [hydrOXYzine 50 mg PO HS 03/14/21 08/17/21 PAMOATE] Baclofen [Lioresal] 20 mg PO TID PRN 05/20/21 08/17/21 Pantoprazole Sodium 40 mg PO DAILY 05/20/21 08/17/21 Citalopram Hydrobromide [CeleXA] 20 mg PO DAILY 08/17/21 08/17/21 Loratadine [Claritin] 10 mg PO DAILY 08/17/21 08/17/21 Metoprolol Tartrate [Lopressor] 25 mg PO BID 08/17/21 08/17/21 Omeprazole 20 mg PO BID 08/17/21 08/17/21 Sucralfate [Carafate] 1 gm PO BID 08/17/21 08/17/21 Previous Rx's Medication Instructions Recorded Atorvastatin [Lipitor] 20 mg PO HS #30 tab 03/11/21 Nitroglycerin Sl Tabs [Nitrostat] 0.4 mg SUBLINGUAL Q5M PRN #20 tab 03/11/21 Allergies Allergy/AdvReac Type Severity Reaction Status Date / Time tramadol Allergy Severe Itching Verified 08/19/21 18:17 Review of Systems ROS Statement: Those systems with pertinent positive or pertinent negative responses have been documented in the HPI. ROS Other: All systems not noted in ROS Statement are negative. Constitutional: Denies: fever Eyes: Denies: eye pain ENT: Denies: ear pain Respiratory: Denies: cough Cardiovascular: Reports: chest pain Endocrine: Denies: fatigue Gastrointestinal: Reports: abdominal pain Genitourinary: Denies: dysuria Musculoskeletal: Denies: back pain Skin: Denies: rash Neurological: Denies: weakness Past Medical History Past Medical History: Coronary Artery Disease (CAD), Chest Pain / Angina, H yperlipidemia, Hypertension, Myocardial Infarction ([place]) Additional Past Medical History / Comment(s): Recent bronchitis History of Any Multi-Drug Resistant Organisms: None Reported Past Surgical History: No Surgical Hx Reported, Heart Catheterization Past Anesthesia/Blood Transfusion Reactions: No Reported Reaction Additional Past Anesthesia/Blood Transfusion Reaction / Comment(s): Pt has never had surgery. Past Psychological History: Anxiety, Bipolar, Depression, Panic Disorder Smoking Status: Former smoker Past Alcohol Use History: None Reported Past Drug Use History: Marijuana - Past Family History Father Family Medical History: Myocardial Infarction ([place]) Additional Family Medical History / Comment(s): Father of a [place] at the age of 41 yrs. Mother Family Medical History: Diabetes Mellitus General Exam Limitations: no limitations General appearance: alert, in no apparent distress Head exam: Present: normocephalic Eye exam: Present: normal appearance Neck exam: Present: normal inspection Respiratory exam: Present: normal lung sounds bilaterally. Absent: chest wall tenderness Cardiovascular Exam: Present: regular rate, normal rhythm Expanded Peripheral pulses: 2+: Radial (R), Radial (L), Posterior Tibialis (R), Posterior Tibialis (L) GI/Abdominal exam: Present: soft, normal bowel sounds. Absent: distended, tenderness, guarding, rebound, rigid, pulsatile mass Extremities exam: Present: normal inspection. Absent: pedal edema, calf tenderness Neurological exam: Present: alert Psychiatric exam: Present: normal affect, normal mood Skin exam: Present: normal color Course Vital Signs 08/19/21 18:14 Temperature 98.1 F Pulse Rate 76 Respiratory 19 Rate Blood Pressure 162/78 O2 Sat by Pulse 98 Oximetry EKG Findings - EKG Comments: EKG Findings:: No sinus rhythm with a rate of 70. WA 146. QRS 80. QT 296. QTc 427. Normal axis. Normal QRS. No acute ST change. Medical Decision Making - Medical Decision Making Patient reevaluated and resting comfortably in bed. Patient updated on results and plan. Case discussed with practitioner [place], covering for Dr. Jessica, who admits for Dr. Lopez - Lab Data Result diagrams: 08/19/21 18:25 08/19/21 18:25 Lab Results 08/19/21 08/19/21 08/19/21 Range/Units 18:24 18:24 18:25 WBC 7.5 (3.8-10.6) k/uL RBC 4.47 (4.30-5.90) m/uL Hgb 13.4 (13.0-17.5) gm/dL Hct 39.4 (39.0-53.0) % MCV 88.1 (80.0-100.0) fL MCH 30.0 (25.0-35.0) pg MCHC 34.1 (31.0-37.0) g/dL RDW 12.8 (11.5-15.5) % Plt Count 316 (150-450) k/uL MPV 7.4 Neutrophils % 52 % Lymphocytes % 38 % Monocytes % 5 % Eosinophils % 4 % Basophils % 1 % Neutrophils # 3.9 (1.3-7.7) k/uL Lymphocytes # 2.8 (1.0-4.8) k/uL Monocytes # 0.4 (0-1.0) k/uL Eosinophils # 0.3 (0-0.7) k/uL Basophils # 0.0 (0-0.2) k/uL PT (9.0-12.0) sec INR (<1.2) APTT (22.0-30.0) sec D-Dimer 0.19 (<0.60) mg/L FEU Sodium (137-145) mmol/L Potassium (3.5-5.1) mmol/L Chloride (98-107) mmol/L Carbon Dioxide (22-30) mmol/L Anion Gap mmol/L BUN (9-20) mg/dL Creatinine (0.66-1.25) mg/dL Est GFR (CKD-EPI)AfAm (>60 ml/min/1.73 sqM) Est GFR (CKD-EPI)NonAf (>60 ml/min/1.73 sqM) Glucose (74-99) mg/dL Calcium (8.4-10.2) mg/dL Magnesium (1.6-2.3) mg/dL Total Bilirubin (0.2-1.3) mg/dL AST (17-59) U/L ALT (4-49) U/L Alkaline Phosphatase (38-126) U/L Troponin I (0.000-0.034) ng/mL Total Protein (6.3-8.2) g/dL Albumin (3.5-5.0) g/dL Lipase 116 (23-300) U/L 08/19/21 08/19/21 08/19/21 Range/Units 18:25 18:25 18:25 WBC (3.8-10.6) k/uL RBC (4.30-5.90) m/uL Hgb (13.0-17.5) gm/dL Hct (39.0-53.0) % MCV (80.0-100.0) fL MCH (25.0-35.0) pg MCHC (31.0-37.0) g/dL RDW (11.5-15.5) % Plt Count (150-450) k/uL MPV Neutrophils % % Lymphocytes % % Monocytes % % Eosinophils % % Basophils % % Neutrophils # (1.3-7.7) k/uL Lymphocytes # (1.0-4.8) k/uL Monocytes # (0-1.0) k/uL Eosinophils # (0-0.7) k/uL Basophils # (0-0.2) k/uL PT 9.9 (9.0-12.0) sec INR 0.9 (<1.2) APTT 23.3 (22.0-30.0) sec D-Dimer (<0.60) mg/L FEU Sodium 134 L (137-145) mmol/L Potassium 4.3 (3.5-5.1) mmol/L Chloride 100 (98-107) mmol/L Carbon Dioxide 23 (22-30) mmol/L Anion Gap 11 mmol/L BUN 5 L (9-20) mg/dL Creatinine 0.74 (0.66-1.25) mg/dL Est GFR (CKD-EPI)AfAm >90 (>60 ml/min/1.73 sqM) Est GFR (CKD-EPI)NonAf >90 (>60 ml/min/1.73 sqM) Glucose 98 (74-99) mg/dL Calcium 10.1 (8.4-10.2) mg/dL Magnesium 1.7 (1.6-2.3) mg/dL Total Bilirubin 0.3 (0.2-1.3) mg/dL AST 30 (17-59) U/L ALT 26 (4-49) U/L Alkaline Phosphatase 66 (38-126) U/L Troponin I <0.012 (0.000-0.034) ng/mL Total Protein 7.6 (6.3-8.2) g/dL Albumin 4.8 (3.5-5.0) g/dL Lipase (23-300) U/L - Radiology Data Radiology results: image reviewed (Chest x-ray shows no acute process) Disposition Clinical Impression: Chest pain Disposition: ADMITTED IP TO THIS HOSP Is patient prescribed a controlled substance at d/c from ED?: No Referrals: Jorge Lopez MD [Primary Care Provider] - 1-2 days Decision Time: 21:27
[2021-08-19] MEDS ORDERED: NITROGLYCERIN SL TABS 0.4 MG TAB SUBLINGUAL PRN (21:28)
[2021-08-19] MEDS ORDERED: ASPIRIN 81 MG PO STA (21:28)
[2021-08-19] MEDS: ACETAMINOPHEN TAB 325 MG TAB PO PRN (22:44)
[2021-08-20] MEDS: NITROGLYCERIN OINT 1 INCH/GM PACKET TOPICAL SCH ×2 (00:29→09:22)
[2021-08-20] MEDS ORDERED: ASPIRIN 325 MG TAB PO SCH (09:00)
[2021-08-20] MEDS: ACETAMINOPHEN TAB 325 MG TAB PO PRN (09:20)
[2021-08-20] MEDS: LOSARTAN 50 MG TAB PO SCH (09:21)
[2021-08-20] MEDS: hydroCHLOROthiazide 25 MG TAB PO SCH (09:21)
[2021-08-20 12:42] LABS: Chol/HDL Ratio 2.86 Ratio; Triglycerides 80.2 mg/dL (0.00-149.00); VLDL Calculation 16.04 mg/dL (5.00-40.00)
[2021-08-20] MEDS ORDERED: PANTOPRAZOLE 40 MG TABLET PO STA (12:42)
[2021-08-20] MEDS: HYDROcodone/APAP 5-325MG 1 EACH TAB PO PRN ×2 (13:14→19:46)
--- NOTE | 2021-08-20 14:04 | CONS ---
CONSULTATION Mr. Payne is a 45-year-old male with known history of smoking and history of hypertension, followed by Dr. Swartz, who presented with generalized pain. The discomfort is pain all over the body that has been going on for a while, and he has dyspnea on exertion. He denies any dizziness or palpitations. He denies any syncope. The patient has a prior admission with chest discomfort and underwent cardiac catheterization in March of this year. At that time he had no evidence of obstructive coronary artery disease, with preserved left ventricular size and systolic function. He denies any dizziness or palpitations. He denies any syncope. He denies any PND or orthopnea. Patient has a prior history of alcohol and tobacco use. MEDICATION: His medications at home included Lipitor 20 mg daily, buspirone, Carafate, Lopressor 25 mg twice a day, and Celexa. REVIEW OF SYSTEMS: RESPIRATORY SYSTEM: He had dyspnea on exertion. He has some cough. GI SYSTEM: No recent GI bleeding. No peptic ulcer disease. SYSTEM: No dysuria or hematuria. NERVOUS SYSTEM: No seizure or stroke. PHYSICAL EXAMINATION: Iogdu-hmptb-yukf-old male, alert, oriented, in no apparent distress. Blood pressure running in the 160s with a heart rate in the 60s. HEAD: Normocephalic. EYES: Sclerae anicteric. NECK: Good carotid upstroke. No bruit. No jugular venous distention. LUNGS: Decreased air exchange. No wheezes. HEART: Regular rate and rhythm. S1, S2. No S3. No rub or gallop. ABDOMEN: Soft, nontender. Positive bowel sounds. No organomegaly. EXTREMITIES: No edema. Intact distal pulses. LAB DATA: Troponin less than 0.012. BUN and creatinine 5 and 0.74. Potassium 4.3. Hemoglobin is 13.4. EKG revealed a sinus mechanism, normal axis and intervals. Normal electrocardiogram. IMPRESSION: 1. Chest discomfort, atypical for ischemic heart disease. 2. Chronic tobacco use. 3. Hypertension. RECOMMENDATIONS: From the cardiac standpoint, I will adjust his antihypertensive regimen. I have discussed with him the importance of smoking cessation. I see no indication for further cardiac workup at this time. Depending on his progress, further recommendations will be made. I will expect he should be able to be discharged home today and followed as an outpatient with Dr. Swartz. Thank you for this consult. Will follow with you. MMODL / IJN: [id number] /
[2021-08-20] MEDS ORDERED: BACLOFEN 10 MG TAB PO PRN (15:22)
[2021-08-20] MEDS ORDERED: LORazepam 0.5 MG TAB PO PRN (15:23)
[2021-08-20 16:14] LABS: Appearance,Urine Clear (Clear); Bilirubin,Urine Negative (Negative); Blood,Urine Negative (Negative); Color,Urine Light Yellow; Glucose,Urine (UA) Negative (Negative); Ketones,Urine Negative (Negative); Leukocyte Esterase,Urine Negative (Negative); Nitrite,Urine Negative (Negative); PH, Urine 7.5 (5.0-8.0); Protein,Urine Negative (Negative); Urobilinogen,Urine <2.0 mg/dL (<2.0)
[2021-08-20 16:23] LABS: Amphetamine Screen,Urine Not Detected (NotDetected); Barbiturate Screen,Urine Not Detected (NotDetected); Benzodiazepines Screen,Urine Not Detected (NotDetected); Cocaine Screen,Urine Not Detected (NotDetected); Methadone Screen, Urine Not Detected (NotDetected); Opiate Screen,Urine Not Detected (NotDetected); Oxycodone Screen, Urine Not Detected (NotDetected); Phencyclidine Screen,Urine Not Detected (NotDetected); Tricyclic Antidepressant,Urine Not Detected (NotDetected); Urn Cannabinoid Scrn Not Detected (NotDetected)
[2021-08-20] MEDS: busPIRone HCl 5 MG TAB PO SCH ×2 (16:32→19:48)
--- NOTE | 2021-08-20 17:22 | HP ---
HISTORY AND PHYSICAL DATE OF SERVICE: 08/20/2021. CHIEF COMPLAINTS: Chest pain and abdominal pain. HISTORY OF PRESENT ILLNESS: This 45-year-old gentleman with a past medical history of multiple medical problems, including CAD, chest pain, history of hypertension, hyperlipidemia, history of myocardial infarction, history of recent bronchitis, anxiety, bipolar, depression, panic disorder, being followed by Dr. Lopez in the outpatient setting, was complaining of diffuse abdominal pain radiating to the upper part of the chest and both arms also. The patient came to [facility] and was admitted for further evaluation and treatment. The pain has been ongoing for a week at least. The patient apparently was admitted to [facility] with hyponatremia as well. The patient also had some dehydration. The patient is being closely monitored at this time. Admission sodium was found to be 134. BUN is 5. Troponins are negative. The EKG showed nonspecific ST-T changes. The patient was admitted for further evaluation and treatment. There is no history of any fever, rigor or chills at this time. PAST MEDICAL HISTORY: History of CAD, chest pain, hypertension, hyperlipidemia, history of myocardial infarction, history of recent bronchitis, anxiety, bipolar, depression, panic disorder. HOME MEDICATIONS: Home medications include: 1. Olanzapine 5 mg p.o. daily. 2. Hydroxyzine 50 mg at bedtime. 3. BuSpar 7.5 mg p.o. t.i.d. 4. Carafate b.i.d. 5. Protonix 40 mg daily. 6. Nitrostat 0.4 sublingually p.r.n. 7. Lopressor 25 mg b.i.d. 8. Claritin 10 mg daily. 9. Celexa 20 mg p.o. daily. 10.Lioresal 20 mg t.i.d. p.r.n. 11.Lipitor mg at bedtime. ALLERGIES: ULTRAM. FAMILY HISTORY: History of diabetes mellitus in the family. SOCIAL HISTORY: History of smoking, THC. Occasional alcohol intake. REVIEW OF SYSTEMS: ENT: No diminished hearing. No diminished vision. CARDIOVASCULAR SYSTEM: As mentioned earlier. RESPIRATORY SYSTEM: As mentioned earlier. GI: As mentioned earlier. : No dysuria. NERVOUS SYSTEM: No numbness, weakness. ALLERGY/IMMUNOLOGY: No asthma or hay fever. MUSCULOSKELETAL: As mentioned earlier. HEMATOLOGY/ONCOLOGY: No history of anemia. ENDOCRINE: As mentioned earlier. CONSTITUTIONAL: As mentioned earlier. DERMATOLOGY: Negative. RHEUMATOLOGY: Negative. PSYCHIATRY: As mentioned earlier. PHYSICAL EXAMINATION: Patient alert and oriented x3. Pulse 63, blood pressure 159/75, respiration 18, temperature 97.9, pulse ox 97% on room air. HEENT: Conjunctivae normal. Oral mucosa moist. NECK: No jugular venous distention. No carotid bruit. No lymph node enlargement. CARDIOVASCULAR: S1, S2 muffled. RESPIRATION: Breath sounds diminished at the bases. A few scattered rhonchi. ABDOMEN: Soft. Mild diffuse discomfort on palpation. No guarding. No rigidity. No mass palpable. LEGS: No edema. No swelling. NERVOUS SYSTEM: Higher functions as mentioned earlier. Moves all 4 limbs. No focal motor or sensory deficit. LYMPHATICS: No lymph node palpable in neck, axillae or groin. SKIN: No ulcer, rash, bleeding. JOINTS: No active deforming arthropathy. LABS: CBC within normal limits. D-dimer is 0.19. Sodium 135. Other labs are noted. ASSESSMENT: 1. Chest pain for evaluation; possible unstable angina. 2. Abdominal pain for evaluation. 3. Hyponatremia. 4. Coronary artery disease. 5. History of chest pain, angina. 6. Hypertension. 7. Hyperlipidemia. 8. History of myocardial infarction. 9. History of recent bronchitis. 10.Anxiety, bipolar, depression, panic disorder. 11.History of nicotine dependence. 12.History of THC. 13.History of hypertensive urgency. RECOMMENDATIONS AND DISCUSSION: In this 45-year-old gentleman who presented with multiple complex medical issues, we will monitor the patient closely. Will rule out myocardial infarction. Closely follow with Cardiology. I would also recommend ultrasound of the abdomen and gallbladder. Symptomatic treatment. Will obtain drug screen as well. Review the medications. Prognosis guarded because of multiple complex medical issues. Further recommendations to follow. A copy of this dictation is being forwarded to Dr. Lopez, who is the primary physician. The patient had a cardiac catheterization earlier this year which showed normal coronary arteries with the possibility of coronary vasospasm being considered. MMODL / IJN: [id number] / MTDD
[2021-08-20] MEDS: ATORVASTATIN 20 MG TAB PO SCH (19:46)
[2021-08-20] MEDS: METOPROLOL TARTRATE 25 MG TAB PO SCH (19:47)
[2021-08-20] MEDS: hydrOXYzine pamoate 25 MG CAP PO SCH (19:47)
[2021-08-20] MEDS: SUCRALFATE 1 GM TAB PO SCH (19:48)
[2021-08-20] MEDS: MELATONIN 3 MG TABLET PO SCH (22:32)
--- NOTE | 2021-08-21 08:27 | US ---
EXAMINATION TYPE: US gallbladder DATE OF EXAM: 08/21/2021 COMPARISON: CT CLINICAL HISTORY: abdominal pain. mid abdominal pain x 4 days EXAM MEASUREMENTS: Liver Length: 14.2 cm Gallbladder Wall: 0.2 cm CBD: 0.3 cm Right Kidney: 10.4 x 5.0 x 4.3 cm Pancreas:only head was seen, mid and tail obscured by overlying bowel gas Liver: wnl Gallbladder: couple folds seen; large shadowing and mobile gallstone noted = 2.2 x 3.0 x 0.9cm Evidence for sonographic Mccall's sign: tender here with probe pressure CBD: wnl Right Kidney: No hydronephrosis or masses seen IMPRESSION: 1. Cholelithiasis. No suspicious changes to suggest acute cholecystitis
[2021-08-21] MEDS: PANTOPRAZOLE SODIUM 40 MG GRANULE PKT PO SCH (08:35)
[2021-08-21] MEDS: busPIRone HCl 5 MG TAB PO SCH ×3 (08:36→23:51)
[2021-08-21] MEDS: LOSARTAN 50 MG TAB PO SCH (08:36)
[2021-08-21] MEDS: LORATADINE 10 MG TAB PO SCH (08:37)
[2021-08-21] MEDS: OLANZapine 5 MG TAB PO SCH (08:37)
[2021-08-21] MEDS: METOPROLOL TARTRATE 25 MG TAB PO SCH ×2 (08:37→23:50)
[2021-08-21] MEDS: SUCRALFATE 1 GM TAB PO SCH ×2 (08:37→23:51)
[2021-08-21] MEDS: CITALOPRAM HYDROBROMIDE 20 MG TAB PO SCH (08:37)
[2021-08-21] MEDS: hydroCHLOROthiazide 25 MG TAB PO SCH (10:58)
--- NOTE | 2021-08-21 12:13 | P.GSCN ---
History of Present Illness Consult date: 08/21/21 History of present illness: CHIEF COMPLAINT: Chest pain and abdominal pain HISTORY OF PRESENT ILLNESS: This is a 45-year-old male who was initially admitted for chest pain and abdominal pain. Patient has been seen by cardiology who felt his chest pain was atypical and no further cardiac workup was needed. They did adjust antihypertensive medication. Patient now describes pain more in the abdomen. He does report right upper quadrant abdominal pain that has been intermittent for the past 2 weeks. He does report that the pain is worse after eating. He does reports that the pain radiates into his back sometimes. He denies any fever. Denies any nausea or vomiting. Patient had an abdominal ultrasound completed that showed cholelithiasis. Surgical consult placed for cholelithiasis. Patient states that his bowel movements have been normal. And occasionally he does have lower abdominal pain. PAST MEDICAL HISTORY: Hypertension, hyperlipidemia, anxiety, bipolar and depression PAST SURGICAL HISTORY: Heart catheterization in March 2021 MEDICATIONS: See list. ALLERGIES: See list. SOCIAL HISTORY: No illicit drug use. Nicotine dependence. Prior history of alcohol use. Reports that he quit drinking about 2 months ago. REVIEW OF SYSTEMS: CONSTITUTIONAL: Denies fever or chills. HEENT: Denies blurred vision, vision changes, or eye pain. Denies hemoptysis CARDIOVASCULAR: Denies chest pain or pressure. RESPIRATORY: No shortness of breath. GASTROINTESTINAL: See HPI for pertinent findings HEMATOLOGIC: Denies bleeding disorders. GENITOURINARY: Denies any blood in urine or increased urinary frequency. SKIN: Denies pruitis. Denies rash. PHYSICAL EXAM: VITAL SIGNS: Reviewed GENERAL: Well-developed in no acute distress. HEENT: No sclera icterus. Extraocular movements grossly intact. Moist buccal mucosa. Head is atraumatic, normocephalic. No nasal drainage. ABDOMEN: Soft. Nondistended. Mild right upper quadrant tenderness to pa lpation NEUROLOGIC: Alert and oriented. Cranial nerves II through XII grossly intact. LABORATORY DATA: WBC 7.5 Hgb 13.4 platelets 316 INR 0.9 sodium 134 potassium 4.3 BUN 5 creatinine 0.7 magnesium 1.7 Troponins negative 3 Drug screen negative IMAGING: Ultrasound cholelithiasis. No suspicious changes to suggest acute cholecystitis ASSESSMENT: 1. Right upper quadrant abdominal pain 2. Symptomatic cholelithiasis PLAN: -Patient scheduled for laparoscopic cholecystectomy today, 08/21/[address] Gonsalez -Keep patient nothing by mouth -Start IV fluids Thank you for this consultation Physician Configuration Management Specialist note has been reviewed by physician. Signing provider agrees with the documented findings, assessment, and plan of care. Past Medical History Past Medical History: Coronary Artery Disease (CAD), Chest Pain / Angina, Hyperlipidemia, Hypertension, Myocardial Infarction (MD) Additional Past Medical History / Comment(s): Recent bronchitis Last Myocardial Infarction Date:: 2020 History of Any Multi-Drug Resistant Organisms: None Reported Past Surgical History: No Surgical Hx Reported, Heart Catheterization Past Anesthesia/Blood Transfusion Reactions: No Reported Reaction Additional Past Anesthesia/Blood Transfusion Reaction / Comm: Pt has never had surgery. Past Psychological History: Anxiety, Bipolar, Depression, Panic Disorder Additional Psychological History / Comment(s): Pt resides with a friend. He is disabled. He uses no assistive device. He does not drive, he walks to [employer]. Smoking Status: Former smoker Past Alcohol Use History: None Reported Additional Past Alcohol Use History / Comment(s): Pt started smoking in 1984 and is a half a ppd smoker. Pt states he drinks beer but less than 14 beers in a week. Past Drug Use History: Marijuana Additional Drug Use History / Comment(s): Pt states he smokes marijuana every other day. - Past Family History Father Family Medical History: Myocardial Infarction (MD) Additional Family Medical History / Comment(s): Father of a MD at the age of 41 yrs. Mother Family Medical History: Diabetes Mellitus Medications and Allergies Home Medications Medication Instructions Recorded Confirmed Type Atorvastatin [Lipitor] 20 mg PO HS #30 tab 03/11/21 08/19/21 Rx Nitroglycerin Sl Tabs [Nitrostat] 0.4 mg SUBLINGUAL Q5M PRN #20 tab 03/11/21 08/19/21 Rx busPIRone HCL [Buspar] 7.5 mg PO TID 03/14/21 08/19/21 History hydrOXYzine pamoate [hydrOXYzine 50 mg PO HS 03/14/21 08/19/21 History PAMOATE] Baclofen [Lioresal] 20 mg PO TID PRN 05/20/21 08/19/21 History Pantoprazole Sodium 40 mg PO DAILY 05/20/21 08/19/21 History Citalopram Hydrobromide [CeleXA] 20 mg PO DAILY 08/17/21 08/19/21 History Loratadine [Claritin] 10 mg PO DAILY 08/17/21 08/19/21 History Metoprolol Tartrate [Lopressor] 25 mg PO BID 08/17/21 08/19/21 History Sucralfate [Carafate] 1 gm PO BID 08/17/21 08/19/21 History OLANZapine 5 mg PO DAILY 08/19/21 08/19/21 History Allergies Allergy/AdvReac Type Severity Reaction Status Date / Time tramadol Allergy Severe Itching Verified 08/19/21 21:30 Surgical - Exam Vital Signs Temp Pulse Resp BP Pulse Ox 98.1 F 76 19 162/78 98 08/19/21 18:14 08/19/21 18:14 08/19/21 18:14 08/19/21 18:14 08/19/21 18:14 Results - Labs 08/19/21 18:25 08/19/21 18:25 Diabetes panel 08/20/21 Range/Units 00:29 Triglycerides 80.20 (0.00-149.00) mg/dL HDL Cholesterol 42.00 (40.00-60.00) mg/dL
[2021-08-21] MEDS: FOLIC ACID 1 MG TAB PO SCH (12:43)
[2021-08-21] MEDS: MULTIVITAMINS, THERA 1 EACH TAB PO SCH (12:43)
[2021-08-21] MEDS: SODIUM CHLORIDE 0.9% 1,000 ML IV SCH ×2 (12:43→23:57)
[2021-08-21] MEDS: THIAMINE 100 MG TAB PO SCH (12:43)
[2021-08-21 13:17] LABS: Basophils % (A) 1 %; Eosinophils # (A) 0.3 k/uL (0-0.7); Eosinophils % (A) 4 %; HCT 42.4 % (39.0-53.0); HGB 13.7 gm/dL (13.0-17.5); Lymphocytes # (A) 2.3 k/uL (1.0-4.8); Lymphocytes % (A) 34 %; MCH 29.8 pg (25.0-35.0); MCHC 32.3 g/dL (31.0-37.0); Mean Platelet Volume 7.8; Monocytes # (A) 0.3 k/uL (0-1.0); Monocytes % (A) 5 %; Neutrophils # (A) 3.7 k/uL (1.3-7.7); Neutrophils % (A) 55 %; Platelet Count 299 k/uL (150-450); RBC 4.61 m/uL (4.30-5.90); RDW 12.3 % (11.5-15.5); WBC 6.8 k/uL (3.8-10.6)
[2021-08-21 13:33] LABS: ALT 26 U/L (4-49); AST 26 U/L (17-59); African American GFR (CKD) >90 (>60 ml/min/1.73 sqM); Albumin 4.6 g/dL (3.5-5.0); Albumin/Globulin Ratio 1.6; Alkaline Phosphatase 59 U/L (38-126); Anion Gap 11 mmol/L; Blood Urea Nitrogen 9 mg/dL (9-20); Calcium 10.3 mg/dL (8.4-10.2); Carbon Dioxide 24 mmol/L (22-30); Chloride 96 mmol/L (98-107); Globulin 2.8 g/dL; Glucose 95 mg/dL (74-99); Non-African American GFR(CKD) >90 (>60 ml/min/1.73 sqM); Potassium 4.9 mmol/L (3.5-5.1); Sodium 131 mmol/L (137-145); Total Bilirubin 0.4 mg/dL (0.2-1.3); Total Protein 7.4 g/dL (6.3-8.2)
--- NOTE | 2021-08-21 14:40 | P.PN ---
Subjective Progress Note Date: 08/21/21 This is a 45-year-old male who was recently admitted with diffuse abdominal pain radiating to the upper part of the chest along with both arms and being closely monitored. Patient was evaluated by cardiology. Patient continued with right upper quadrant abdominal pain an ultrasound of the gallbladder was showing evidence of cholelithiasis with no acute cholecystitis noted and general surgery was consulted. Patient will be nothing by mouth with possibility of cholecystectomy this afternoon with surgery. Patient is afebrile. Labs: White blood count is 6.8, hemoglobin is 13.7, platelets are 299, sodium is 131, potassium is 4.9, BUN is 9, creatinine is 0.82, calcium is 10.3, liver functions within normal limits, urinalysis was negative and drug screen was negative as well Review of systems: Constitutional: No reports of fatigue, fever, or chills Cardiovascular: reports of intermittent chest pain, denies palpitations Respiratory: No reports of shortness of breath or cough GI: No reports of nausea, vomiting, or diarrhea, reports abdominal pain : No reports of dysuria or retention Neurovascular: No reports of weakness or numbness All medications have been reviewed Active Medications Acetaminophen (Acetaminophen Tab 325 Mg Tab) 650 mg PO Q4HR PRN PRN Reason: Pain Last Admin: 08/20/21 09:20 Dose: 650 mg Documented by: Hydrocodone Bitart/Acetaminophen (Hydrocodone/Apap 5-325mg 1 Each Tab) 1 each PO Q6HR PRN PRN Reason: Pain Last Admin: 08/20/21 19:46 Dose: 1 each Documented by: Atorvastatin Calcium (Atorvastatin 20 Mg Tab) 20 mg PO HS [facility] Last Admin: 08/20/21 19:46 Dose: 20 mg Documented by: Baclofen (Baclofen 10 Mg Tab) 20 mg PO TID PRN PRN Reason: Muscle Spasm Buspirone HCl (Buspirone Hcl 5 Mg Tab) 7.5 mg PO TID [facility] Last Admin: 08/21/21 08:36 Dose: 7.5 mg Documented by: Citalopram Hydrobromide (Citalopram Hydrobromide 20 Mg Tab) 20 mg PO DAILY [facility] Last Admin: 08/21/21 08:37 Dose: 20 mg Documented by: Folic Acid (Folic Acid 1 Mg Tab) 1 mg PO DAILY@1200 [facility] Last Admin: 08/21/21 12:43 Dose: 1 mg Documented by: Hydrochlorothiazide (Hydrochlorothiazide 25 Mg Tab) 25 mg PO DAILY [facility] Last Admin: 08/21/21 10:58 Dose: 25 mg Documented by: Hydroxyzine Pamoate (Hydroxyzine Pamoate 25 Mg Cap) 50 mg PO HS [facility] Last Admin: 08/20/21 19:47 Dose: 50 mg Documented by: Sodium Chloride (Saline 0.9%) 1,000 mls @ 75 mls/hr IV .[id number] [facility] Last Admin: 08/21/21 12:43 Dose: 75 mls/hr Documented by: Loratadine (Loratadine 10 Mg Tab) 10 mg PO DAILY [facility] Last Admin: 08/21/21 08:37 Dose: 10 mg Documented by: Lorazepam (Lorazepam 0.5 Mg Tab) 0.5 mg PO Q8HR PRN PRN Reason: Anxiety Losartan Potassium (Losartan 50 Mg Tab) 50 mg PO DAILY [facility] Last Admin: 08/21/21 08:36 Dose: 50 mg Documented by: Melatonin (Melatonin 3 Mg Tablet) 6 mg PO [facility] Last Admin: 08/20/21 22:32 Dose: 6 mg Documented by: Metoprolol Tartrate (Metoprolol Tartrate 25 Mg Tab) 25 mg PO BID [facility] Last Admin: 08/21/21 08:37 Dose: 25 mg Documented by: Multivitamins (Multivitamins, Thera 1 Each Tab) 1 each PO DAILY@1200 [facility] Last Admin: 08/21/21 12:43 Dose: 1 each Documented by: Nitroglycerin (Nitroglycerin Sl Tabs 0.4 Mg Tab) 0.4 mg SUBLINGUAL Q5M PRN PRN Reason: Chest Pain Olanzapine (Olanzapine 5 Mg Tab) 5 mg PO DAILY [facility] Last Admin: 08/21/21 08:37 Dose: 5 mg Documented by: Pantoprazole Sodium (Pantoprazole Sodium 40 Mg Granule Pkt) 40 mg PO AC-BRKFST [facility] Last Admin: 08/21/21 08:35 Dose: 40 mg Documented by: Sodium Chloride (Sodium Chloride 0.9% Flush 10 Ml Syringe) 10 ml IV BID [facility] Last Admin: 08/21/21 08:38 Dose: 10 ml Documented by: Sucralfate (Sucralfate 1 Gm Tab) 1 gm PO BID [facility] Last Admin: 08/21/21 08:37 Dose: 1 gm Documented by: Thiamine HCl (Thiamine 100 Mg Tab) 100 mg PO DAILY@1200 [facility] Last Admin: 08/21/21 12:43 Dose: 100 mg Documented by: Physical exam: Gen: This is a 45-year-old male awake, alert and oriented 3, well-developed, well-nourished. Temp is 97.9F, pulse is 64, respirations are 18, blood pressure is 149/80, oxygen saturation is 93% on room air. HEENT: Head is atraumatic, normocephalic. Pupils equal, round. Sclerae is anicteric. NECK: Supple. No JVD. No lymphadenopathy. No thyromegaly. LUNGS: Diminished breath sounds bilaterally with no wheezing or rhonchi noted HEART: S1, S2 are muffled ABDOMEN: Soft. Right upper quadrant abdominal discomfort on palpation. Bowel sounds are present. No masses. EXTREMITIES: No pedal edema. No calf tenderness. NEUROLOGICAL: Patient is awake, alert and oriented x3. Cranial nerves 2 through 12 are grossly intact. Assessment: Chest pain for evaluation, possible unstable angina, ACS ruled out by cardiology Abdominal pain for evaluation Cholelithiasis noted on gallbladder ultrasound Hyponatremia Coronary artery disease History of chest pain, angina Hypertension Hyperlipidemia history of myocardial infarction history of recent bronchitis Anxiety, bipolar, depression, panic disorder History of nicotine dependence History of THC history of hypertensive urgency Plan: Recommend continue with current medications, management, and symptomatic treatment. Patient evaluated by cardiology. Patient continues with right upper quadrant abdominal discomfort and was evaluated by general surgery and ul trasound of the gallbladder shows cholelithiasis without any acute cholecystitis and is scheduled for laparoscopic cholecystectomy today with Dr. Gonsalez. Patient will be nothing by mouth and will await surgical report. Will repeat a.m. labs and continue to monitor closely. Further recommendations to follow based on the clinical course of the patient. Due to multiple complex medical issues, prognosis is guarded. Objective - Vital Signs Vital signs: Vital Signs Temp 97.9 F 08/21/21 07:00 Pulse 64 08/21/21 07:00 Resp 18 08/21/21 08:00 BP 149/80 08/21/21 07:00 Pulse Ox 93 L 08/21/21 07:00 Intake & Output 08/20/21 08/21/21 08/21/21 18:59 06:59 18:59 Intake Total 500 Balance 500 Weight 72.575 kg Intake: Oral 500 Other: Voiding Method Toilet Toilet # Voids 2 - Labs CBC & Chem 7: 08/21/21 12:37 08/21/21 12:37 Labs: Abnormal Lab Results - Last 24 Hours (Table) 08/21/21 Range/Units 12:37 Sodium 131 L (137-145) mmol/L Chloride 96 L (98-107) mmol/L Calcium 10.3 H (8.4-10.2) mg/dL
[2021-08-21] MEDS: MORPHINE SULFATE 2 MG/ML SYRINGE IVP PRN (14:45)
[2021-08-21] MEDS ORDERED: BUPIVACAIN-EPI 0.25%-1:200,000 30 ML VIAL SQ ONE (20:17)
[2021-08-21] MEDS ORDERED: LIDOCAINE 1% INJ 10MG/ML (20 ML MDV) ONE (21:00)
[2021-08-21] MEDS ORDERED: SUCCINYLCHOLINE CHLORIDE 100 MG/5 ML SYR IV ONE (21:00)
[2021-08-21] MEDS ORDERED: fentaNYL (PF) 50 MCG/ML 2 ML AMP ONE (21:00)
[2021-08-21] MEDS ORDERED: KETOROLAC 15 MG/ML 1 ML VIAL ONE (21:00)
[2021-08-21] MEDS ORDERED: MIDAZOLAM 2 MG/2 ML VIAL ONE (21:00)
[2021-08-21] MEDS ORDERED: SODIUM CHLORIDE 0.9% 100 ML BAG ONE (21:00)
[2021-08-21] MEDS ORDERED: PROPOFOL 10 MG/ML 20 ML VIAL IV ONE (21:00)
[2021-08-21] MEDS ORDERED: HEPARIN SODIUM,PORCINE 5,000 UNIT/ML 1 ML VIAL ONE (21:00)
[2021-08-21] MEDS ORDERED: LABETALOL 5 MG/ML VIAL MDV ONE (21:00)
[2021-08-21] MEDS ORDERED: ceFAZolin 1,000 MG VIAL ONE (21:00)
[2021-08-21] MEDS ORDERED: GLYCOPYRROLATE 0.2 MG/ML 2 ML VIAL ONE (21:00)
[2021-08-21] MEDS ORDERED: ROCURONIUM 10 MG/ML (5 ML VIAL) IV ONE (21:00)
[2021-08-21] MEDS ORDERED: NEOSTIGMINE 1 MG/ML 10 ML VIAL ONE (21:00)
[2021-08-21] MEDS ORDERED: SODIUM CHLORIDE 0.9% 1,000 ML IV ONE (21:06)
--- NOTE | 2021-08-21 21:35 | P.OP ---
Date of Procedure: 08/21/21 Preoperative Diagnosis: Cholecystitis Postoperative Diagnosis: Cholecystitis Cholelithiasis Procedure(s) Performed: Laparoscopic cholecystectomy Anesthesia: NICOLE Surgeon: Venkata Gonsalez Estimated Blood Loss (ml): 5 Pathology: other (Gallbladder) Condition: stable Disposition: PACU Description of Procedure: The patient was placed on the operating table. The patient received a general endotracheal tube anesthesia. The patients abdomen was prepped and draped in the usual sterile fashion. Through an infraumbilical stab incision, the fascia of the anterior abdominal wall was grasped with a pair of Kochers and then the Veress needle was placed in the peritoneal cavity. Position of the Veress needle was confirmed with positive drop test. The abdomen was then insufflated. After adequate insufflation, the 10 mm trocar was placed in the peritoneal cavity. Following this the laparoscope was placed in the peritoneal cavity. The patient was placed in the head-up, right side up position and then a 5 mm trocar was placed in the right lateral and right subcostal position under direct visualization. A 8 mm trocar was placed in the epigastric position. The gallbladder was grasped in the fundus and infundibulum. Traction on the gallbladder was placed in the lateral and the cephalad positions. The triangle of Calot was visualized.. The cystic duct was bluntly dissected until the union of the cystic duct and common bile duct was seen. A critical view of safety was achieved. The cystic duct was then divided and sealed with the Harmonic scissors. A PDS Endoloop was then placed throughout the cystic duct stump. The cystic artery divided and sealed with the Harmonic scissors. The gallbladder was then removed from the liver bed using Harmonic scissors. The gallbladder was then extracted through the epigastric port site. Operative field was checked for any bleeding spots and Harmonic scissors was used to coagulate the liver bed. The abdomen was irrigated. The trocars were removed. The skin was closed using interrupted 3-0 Vicryl suture. Dermabond dressing were applied. The patient tolerated the procedure well.
[2021-08-21] MEDS ORDERED: HYDROmorphone 1 MG/ML 1 ML SYRINGE IVP PRN (21:36)
[2021-08-21] MEDS ORDERED: LABETALOL SYRINGE 5 MG/ML IVP ONE (22:00)
[2021-08-21] MEDS ORDERED: HYDROmorphone 0.5 MG/0.5 ML SYRINGE IVP ONE (22:09)
[2021-08-21] MEDS ORDERED: hydrALAZINE HCL 20 MG/ML 1 ML VIAL ONE ×2 (22:12)
[2021-08-21] MEDS ORDERED: hydrALAZINE HCL 20 MG/ML 1 ML VIAL IVP ONE (22:14)
[2021-08-21] MEDS ORDERED: MORPHINE SULFATE 4 MG/ML SYRINGE ONE (22:30)
[2021-08-21] MEDS ORDERED: MORPHINE SULFATE 4 MG/ML SYRINGE IVP ONE (22:33)
[2021-08-21] MEDS ORDERED: LACTATED RINGERS 1,000 ML IV ONE ×2 (22:35)
[2021-08-21] MEDS: ATORVASTATIN 20 MG TAB PO SCH (23:50)
[2021-08-21] MEDS: MELATONIN 3 MG TABLET PO SCH (23:50)
[2021-08-21] MEDS: hydrOXYzine pamoate 25 MG CAP PO SCH (23:50)
[2021-08-22] MEDS: MORPHINE SULFATE 2 MG/ML SYRINGE IVP PRN ×2 (02:35→06:07)
[2021-08-22 02:53] VITALS: RESP 18
[2021-08-22 07:48] VITALS: PULSE 60; TEMP 97.8
[2021-08-22 08:46] VITALS: BP 171/79
[2021-08-22] MEDS ORDERED: TAMSULOSIN 0.4 MG CAP.ER.24H PO STA (08:55)
[2021-08-22] MEDS ORDERED: ENOXAPARIN 40 MG/0.4 ML SYRINGE SQ SCH (09:00)
[2021-08-22] MEDS: PANTOPRAZOLE SODIUM 40 MG GRANULE PKT PO SCH (09:06)
[2021-08-22] MEDS: hydroCHLOROthiazide 25 MG TAB PO SCH (09:07)
[2021-08-22] MEDS: CITALOPRAM HYDROBROMIDE 20 MG TAB PO SCH (09:07)
[2021-08-22] MEDS: SUCRALFATE 1 GM TAB PO SCH (09:07)
[2021-08-22] MEDS: METOPROLOL TARTRATE 25 MG TAB PO SCH (09:07)
[2021-08-22] MEDS: busPIRone HCl 5 MG TAB PO SCH (09:08)
[2021-08-22] MEDS: LOSARTAN 50 MG TAB PO SCH (09:08)
[2021-08-22] MEDS: LORATADINE 10 MG TAB PO SCH (09:08)
[2021-08-22] MEDS: OLANZapine 5 MG TAB PO SCH (09:08)
[2021-08-22] MEDS: SODIUM CHLORIDE 0.9% 1,000 ML IV SCH (10:44)
--- NOTE | 2021-08-22 12:29 | P.PN ---
Subjective Progress Note Date: 08/22/21 CHIEF COMPLAINT: Abdominal pain HISTORY OF PRESENT ILLNESS: Patient is status post laparoscopic cholecystectomy for cholecystitis with cholelithiasis. Patient reports improvement in his abdominal pain. Denies any nausea or vomiting. Tolerating diet. Having flatus. He is having urinary retention. He had 1100 mL of urine retained and required straight cath. Patient started on Flomax. Afebrile PHYSICAL EXAM: VITAL SIGNS: Reviewed. GENERAL: Well-developed in no acute distress. HEENT: No sclera icterus. Extraocular movements grossly intact. Moist buccal mucosa. Head is atraumatic, normocephalic. ABDOMEN: Soft. Nondistended. Incision sites clean dry and intact NEUROLOGIC: Alert and oriented. Cranial nerves II through XII grossly intact. ASSESSMENT: 1. Cholecystitis with cholelithiasis status post laparoscopic cholecystectomy 2. Urinary retention PLAN: -Patient can be discharged from surgical standpoint if he is able to urinate -Patient started on Flomax -Continue pain medication as needed -Continue regular diet -Encourage patient to ambulate Physician Middleware Administrator note has been reviewed by physician. Signing provider agrees with the documented findings, assessment, and plan of care. Objective - Vital Signs Vital signs: Vital Signs Temp 97.8 F 08/22/21 07:47 Pulse 60 08/22/21 07:47 Resp 18 08/22/21 08:00 BP 171/79 08/22/21 08:46 Pulse Ox 96 08/22/21 07:47 Intake & Output 08/21/21 08/22/21 08/22/21 18:59 06:59 18:59 Intake Total 650 625 800 Output Total 200 1100 Balance 450 625 -300 Weight 72.575 kg Intake: IV 150 625 Sodium Chloride 0.9% 1, 150 000 ml @ 75 mls/hr IV . [id number] Rx#:[id number] Oral 500 800 Output: Urine 200 1100 Straight 1100 Other: Voiding Method Toilet # Voids 2 0 - Labs CBC & Chem 7: 08/21/21 12:37 08/21/21 12:37 Labs: Abnormal Lab Results - Last 24 Hours (Table) 08/21/21 Range/Units 12:37 Sodium 131 L (137-145) mmol/L Chloride 96 L (98-107) mmol/L Calcium 10.3 H (8.4-10.2) mg/dL
[2021-08-22] MEDS: MULTIVITAMINS, THERA 1 EACH TAB PO SCH (12:45)
[2021-08-22] MEDS: FOLIC ACID 1 MG TAB PO SCH (12:45)
[2021-08-22] MEDS: THIAMINE 100 MG TAB PO SCH (12:45)
[2021-08-22] MEDS: HYDROcodone/APAP 5-325MG 1 EACH TAB PO PRN (12:58)
--- NOTE | 2021-08-23 04:06 | P.DS ---
Providers Date of admission: 08/21/21 12:18 Expected date of discharge: 08/22/21 Attending physician: Hermes Jessica Consults: 08/19/21 21:28 Consult Physician Urgent Consulting Provider: Mercedes Lucas Consult Reason/Comments: cp Do you want consulting provider notified?: Yes 08/21/21 10:50 Consult Physician Routine Consulting Provider: Venkata Gonsalez Consult Reason/Comments: Cholelithiasis Do you want consulting provider notified?: Yes Primary care physician: Jessica Patel Hospital Course: Final Diagnosis Chest pain for evaluation, possible unstable angina, ACS ruled out by cardiology Abdominal pain for evaluation Cholelithiasis noted on gallbladder ultrasound Hyponatremia Coronary artery disease History of chest pain, angina Hypertension Hyperlipidemia history of myocardial infarction history of recent bronchitis Anxiety, bipolar, depression, panic disorder History of nicotine dependence History of THC history of hypertensive urgency Discharge disposition Patient is being discharged in a stable condition with guarded prognosis to home. Patient will follow-up with Dr. Lopez in the outpatient setting upon discharge. Patient is to follow up with surgery Dr. Gonsalez in one week. Patient to continue with flomax. Total time taken is greater than 35 minutes. Hospital course This is a 45-year-old male who was recently admitted with diffuse abdominal pain radiating to the upper part of the chest along with both arms and being closely monitored. Patient was evaluated by cardiology. Patient continued with right upper quadrant abdominal pain an ultrasound of the gallbladder was showing evidence of cholelithiasis with no acute cholecystitis noted and general surgery was consulted. Patient will be nothing by mouth with possibility of cholecys tectomy this afternoon with surgery. Patient is afebrile. 08/22/2021 Patient seen this morning status post cholecystectomy and passing gas with no reported bowel movement as of yet. Patient was having some retention and required a one time straight cath. Patient did void and will continue on flomax. Encouraged fluids. Patient is status post cholecystectomy and will follow up with Dr. Gonsalez in one week. Currently no reports of chest pain, shortness of breath, or palpitations. Patient is afebrile. No reports of nausea or vomiting and patient is tolerating diet. Patient will be discharged home today. Guarded prognosis. GENERAL: The patient is alert and oriented x3, no acute distress, well developed, well nourished HEENT: Pupils are round and equally reacting to light. EOMI. No scleral icterus. No conjunctival pallor. CARDIOVASCULAR: S1 and S2 muffled PULMONARY: Clear to auscultation with no wheezing or rhonchi noted ABDOMEN: Soft, non-tender, non-distended, normoactive bowel sounds. No palpable organomegaly. surgical dressing are intact MUSCULOSKELETAL: No joint swelling or deformity. EXTREMITIES: No cyanosis, clubbing, or edema noted NEUROLOGICAL: Gross neurological examination did not reveal any focal deficits. SKIN: No rashes or lesions noted Please refer to medication reconciliation sheet for a list of medications. Patient Condition at Discharge: Stable Plan - Discharge Summary Discharge Rx Participant: No New Discharge Prescriptions: New Tamsulosin [Flomax] 0.4 mg PO PC-BRKFST 30 Days #30 capsule hydroCHLOROthiazide [Hydrodiuril] 25 mg PO DAILY 30 Days #30 tab Multivitamins, Thera [Multivitamin (formulary)] 1 each PO DAILY@1200 #30 tab HYDROcodone/APAP 5-325MG [Acton 5-325] 1 tab PO Q6HR PRN 3 Days #12 tab PRN Reason: Pain Losartan [Cozaar] 50 mg PO DAILY 30 Days #30 tab Folic Acid 1 mg PO DAILY@1200 #30 tab Acetaminophen Tab [Tylenol] 650 mg PO Q4HR PRN tab PRN Reason: Pain Thiamine [Vitamin B-1] 100 mg PO DAILY@1200 #30 tab Continue busPIRone HCL [Buspar] 7.5 mg PO TID hydrOXYzine pamoate [hydrOXYzine PAMOATE] 50 mg PO HS Baclofen [Lioresal] 20 mg PO TID PRN PRN Reason: Muscle Spasm Citalopram Hydrobromide [CeleXA] 20 mg PO DAILY Loratadine [Claritin] 10 mg PO DAILY Sucralfate [Carafate] 1 gm PO BID OLANZapine 5 mg PO DAILY Atorvastatin [Lipitor] 20 mg PO HS #30 tab Nitroglycerin Sl Tabs [Nitrostat] 0.4 mg SUBLINGUAL Q5M PRN #20 tab PRN Reason: Chest Pain Pantoprazole Sodium 40 mg PO DAILY Metoprolol Tartrate [Lopressor] 25 mg PO BID Discharge Medication List Atorvastatin [Lipitor] 20 mg PO HS #30 tab 03/11/21 [Rx] Nitroglycerin Sl Tabs [Nitrostat] 0.4 mg SUBLINGUAL Q5M PRN #20 tab 03/11/21 [Rx] busPIRone HCL [Buspar] 7.5 mg PO TID 03/14/21 [History] hydrOXYzine pamoate [hydrOXYzine PAMOATE] 50 mg PO HS 03/14/21 [History] Baclofen [Lioresal] 20 mg PO TID PRN 05/20/21 [History] Pantoprazole Sodium 40 mg PO DAILY 05/20/21 [History] Citalopram Hydrobromide [CeleXA] 20 mg PO DAILY 08/17/21 [History] Loratadine [Claritin] 10 mg PO DAILY 08/17/21 [History] Metoprolol Tartrate [Lopressor] 25 mg PO BID 08/17/21 [History] Sucralfate [Carafate] 1 gm PO BID 08/17/21 [History] OLANZapine 5 mg PO DAILY 08/19/21 [History] Acetaminophen Tab [Tylenol] 650 mg PO Q4HR PRN tab 08/22/21 [Rx] Folic Acid 1 mg PO DAILY@1200 #30 tab 08/22/21 [Rx] HYDROcodone/APAP 5-325MG [Acton 5-325] 1 tab PO Q6HR PRN 3 Days #12 tab 08/22/21 [Rx] Losartan [Cozaar] 50 mg PO DAILY 30 Days #30 tab 08/22/21 [Rx] Multivitamins, Thera [Multivitamin (formulary)] 1 each PO DAILY@1200 #30 tab 08/22/21 [Rx] Tamsulosin [Flomax] 0.4 mg PO PC-BRKFST 30 Days #30 capsule 08/22/21 [Rx] Thiamine [Vitamin B-1] 100 mg PO DAILY@1200 #30 tab 08/22/21 [Rx] hydroCHLOROthiazide [Hydrodiuril] 25 mg PO DAILY 30 Days #30 tab 08/22/21 [Rx] Follow up Appointment(s)/Referral(s): Jose Alfredo Swartz MD [STAFF PHYSICIAN] - 2 Weeks (Cardiology office will call you with appointment time) Jorge Lopez MD [Primary Care Provider] - 08/26/21 10:10 am Venkata Gonsalez MD [STAFF PHYSICIAN] - 09/02/21 2:45 pm Patient Instructions/Handouts: *Sur[facility] - Laparoscopic Cholecystectomy Discharge Instructions, *[facility] - ([facility]) Laparoscopic Cholecystectomy, How to Stop Smoking (DC), Low Fat Diet (DC) Activity/Diet/Wound Care/Special Instructions: No driving while taking [place] No lifting over 10 pounds You may shower. No soaking or tub baths for 2 weeks Very light activity until you are reevaluated at your follow up appointment with your surgeon Follow-up with primary care provider on discharge New taking medications as prescribed Encourage fluids Activity as tolerated and recommend following surgical recommendations status post cholecystectomy Continue current diet Discharge Disposition: HOME SELF-CARE
[2021-08-23] MEDS ORDERED: TAMSULOSIN 0.4 MG CAP.ER.24H PO SCH (08:30)
== END 2021-08-22 14:46 | disposition home or self-care (01) | DRG 418 ==
LOC: EC 18:11 → 1SOBS 21:28 → 6NMEDSUR 08-20 04:51 → OBSVTOIN 08-21 12:18
PROVIDERS: ADMIT Hospitalist; ATTEND Hospitalist
PROC: 0FT44ZZ Resection of Gallbladder, Percutaneous Endoscopic Approach (ICD-10-PCS; principal; 2021-08-21 12:55)
DX: K80.10 Calculus of gallbladder with chronic cholecystitis without obstruction (principal); E87.1 Hypo-osmolality and hyponatremia; E78.5 Hyperlipidemia, unspecified; E86.0 Dehydration; Z20.822 Contact with and (suspected) exposure to COVID-19; F12.90 Cannabis use, unspecified, uncomplicated; F17.200 Nicotine dependence, unspecified, uncomplicated; F31.9 Bipolar disorder, unspecified; F41.0 Panic disorder [episodic paroxysmal anxiety]; I10 Essential (primary) hypertension; I25.10 Atherosclerotic heart disease of native coronary artery without angina pectoris; I25.2 Old myocardial infarction; Z79.899 Other long term (current) drug therapy; Z82.49 Family history of ischemic heart disease and other diseases of the circulatory system; Z83.3 Family history of diabetes mellitus
CPT/HCPCS: 36415; 71046; 76705; 80053; 80061; 80306; 81003; 83690; 83735; 84484; 85025; 85379; 85610; 85730; 87635; 88304; 93005; 99285

== ENCOUNTER 2021-08-23 17:20 | Emergency (ER) | payer MEDICARE, OTHER ==
[2021-08-23 17:28] VITALS: TEMP 98.2
--- NOTE | 2021-08-23 18:11 | ED ---
General Adult HPI - General Chief complaint: Shortness of Breath Stated complaint: Post Op-EDGAR Time Seen by Provider: 08/23/21 17:34 Source: patient Mode of arrival: ambulatory Limitations: no limitations - History of Present Illness Initial comments: Dictation was produced using [employer] dictation software. please excuse any grammatical, word or spelling errors. Chief Complaint: 45-year-old male presents with myalgias, chest pain and abdominal pain History of Present Illness: Patient is a 45-year-old male he was admitted to the hospital recently. He was discharged just yesterday. 2 days ago patient had laparoscopic cystectomy. Patient states that since being discharged she is continued to have some abdominal pain. Patient states that he took the medication and his muscle relaxer medications and still continues to have sy mptoms of throat tingling, chest pain abdominal pain and myalgias. Patient is concerned that his symptoms are from medications that he was prescribed when he was discharged. Patient had surgery for symptomatically cholelithiasis according to chart review. The ROS documented in this emergency department record has been reviewed and confirmed by me. Those systems with pertinent positive or negative responses have been documented in the HPI. All other systems are other negative and/or noncontributory. PHYSICAL EXAM: General Impression: Alert and oriented x3, not in acute distress HEENT: Normocephalic atraumatic, extra-ocular movements intact, pupils equal and reactive to light bilaterally, mucous membranes moist. Cardiovascular: Heart regular rate and rhythm Chest: Able to complete full sentences, no retractions, no tachypnea Abdomen: abdomen soft, non-tender, non-distended, no organomegaly Musculoskeletal: Pulses present and equal in all extremities, no peripheral edema Motor: no focal deficits noted Neurological: CN II-XII grossly intact, no focal motor or sensory deficits noted Skin: Intact with no visualized rashes Psych: Normal affect and mood ED course: 45 Year-old well-appearing male presents emergency department for postoperative abdominal pain, diffuse myalgias and oral pharyngeal tingling. Vital signs upon arrival are within acceptable limits. Patient's well- appearing. Patient not showing any signs of respiratory distress. His oropharynx exam is normal. No changes in his voice. No hoarseness or stridor. Laboratory evaluation obtained. No leukocytosis. CBC metabolic panel is unremarkable. coronavirus is negative. Chest x-ray is nonacute. Computed tomography scan of the abdomen and pelvis shows. Patient reevaluated at the bedside at 8:35 PM found to be in stable medical condition. Patient will be discharged. EKG interpretation: Ventricular rate 81, normal sinus rhythm, FL interval 140, QRS 82, QTc 434. No FL prolongation, no QTC prolongation, no ST or T-wave changes noted. Overall, this EKG is unremarkable - Related Data Home Medications Medication Instructions Recorded Confirmed busPIRone HCL [Buspar] 7.5 mg PO TID 03/14/21 08/23/21 hydrOXYzine pamoate [hydrOXYzine 50 mg PO HS 03/14/21 08/23/21 PAMOATE] Baclofen [Lioresal] 20 mg PO BID PRN 05/20/21 08/23/21 Pantoprazole Sodium 40 mg PO DAILY 05/20/21 08/23/21 Citalopram Hydrobromide [CeleXA] 20 mg PO DAILY 08/17/21 08/23/21 Loratadine [Claritin] 10 mg PO DAILY 08/17/21 08/23/21 Metoprolol Tartrate [Lopressor] 25 mg PO BID 08/17/21 08/23/21 Sucralfate [Carafate] 1 gm PO BID 08/17/21 08/23/21 OLANZapine 5 mg PO DAILY 08/19/21 08/23/21 Multivitamins, Thera [Multivitamin 1 tab PO DAILY@1200 08/23/21 08/23/21 (formulary)] Nitroglycerin Sl Tabs [Nitrostat] 0.4 mg SL Q5M PRN 08/23/21 08/23/21 Previous Rx's Medication Instructions Recorded Atorvastatin [Lipitor] 20 mg PO HS #30 tab 03/11/21 Acetaminophen Tab [Tylenol] 650 mg PO Q4HR PRN tab 08/22/21 Folic Acid 1 mg PO DAILY@1200 #30 tab 08/22/21 HYDROcodone/APAP 5-325MG [[place] 1 tab PO Q6HR PRN 3 Days #12 tab 08/22/21 5-325] Losartan [Cozaar] 50 mg PO DAILY 30 Days #30 tab 08/22/21 Tamsulosin [Flomax] 0.4 mg PO PC-BRKFST 30 Days #30 11/12/21 capsule Thiamine [Vitamin B-1] 100 mg PO DAILY@1200 #30 tab 08/22/21 hydroCHLOROthiazide [Hydrodiuril] 25 mg PO DAILY 30 Days #30 tab 08/22/21 Allergies Allergy/AdvReac Type Severity Reaction Status Date / Time tramadol Allergy Severe Itching Verified 08/23/21 20:09 hydromorphone [From Dilaudid] AdvReac Confusion Verified 08/23/21 20:09 Review of Systems ROS Statement: Those systems with pertinent positive or pertinent negative responses have been documented in the HPI. ROS Other: All systems not noted in ROS Statement are negative. Past Medical History Past Medical History: Coronary Artery Disease (CAD), Chest Pain / Angina, Hyperlipidemia, Hypertension, Myocardial Infarction ([place]) Additional Past Medical History / Comment(s): Recent bronchitis Last Myocardial Infarction Date:: 2020 History of Any Multi-Drug Resistant Organisms: None Reported Past Surgical History: No Surgical Hx Reported, Cholecystectomy, Heart Catheterization Past Anesthesia/Blood Transfusion Reactions: No Reported Reaction Additional Past Anesthesia/Blood Transfusion Reaction / Comment(s): Pt has never had surgery. Past Psychological History: Anxiety, Bipolar, Depression, Panic Disorder Smoking Status: Former smoker Past Alcohol Use History: None Reported Past Drug Use History: Marijuana - Past Family History Father Family Medical History: Myocardial Infarction ([place]) Additional Family Medical History / Comment(s): Father of a [place] at the age of 41 yrs. Mother Family Medical History: Diabetes Mellitus General Exam Limitations: no limitations Course Vital Signs 08/23/21 08/23/21 17:25 20:17 Temperature 98.2 F Pulse Rate 87 67 Respiratory 19 20 Rate Blood Pressure 183/84 132/86 O2 Sat by Pulse 98 95 Oximetry Medical Decision Making - Lab Data Result diagrams: 08/23/21 18:19 08/23/21 18:19 Lab Results 08/23/21 08/23/21 08/23/21 Range/Units 18:19 18:19 19:41 WBC 8.8 (3.8-10.6) k/uL RBC 4.15 L (4.30-5.90) m/uL Hgb 12.8 L (13.0-17.5) gm/dL Hct 37.6 L (39.0-53.0) % MCV 90.5 (80.0-100.0) fL MCH 30.7 (25.0-35.0) pg MCHC 33.9 (31.0-37.0) g/dL RDW 12.2 (11.5-15.5) % Plt Count 256 (150-450) k/uL MPV 7.9 Neutrophils % 56 % Lymphocytes % 32 % Monocytes % 5 % Eosinophils % 3 % Basophils % 0 % Neutrophils # 4.9 (1.3-7.7) k/uL Lymphocytes # 2.9 (1.0-4.8) k/uL Monocytes # 0.4 (0-1.0) k/uL Eosinophils # 0.3 (0-0.7) k/uL Basophils # 0.0 (0-0.2) k/uL Sodium 134 L (137-145) mmol/L Potassium 4.3 (3.5-5.1) mmol/L Chloride 101 (98-107) mmol/L Carbon Dioxide 23 (22-30) mmol/L Anion Gap 10 mmol/L BUN 8 L (9-20) mg/dL Creatinine 0.71 (0.66-1.25) mg/dL Est GFR (CKD-EPI)AfAm >90 (>60 ml/min/1.73 sqM) Est GFR (CKD-EPI)NonAf >90 (>60 ml/min/1.73 sqM) Glucose 108 H (74-99) mg/dL Calcium 10.4 H (8.4-10.2) mg/dL Total Bilirubin 0.3 (0.2-1.3) mg/dL AST 46 (17-59) U/L ALT 31 (4-49) U/L Alkaline Phosphatase 72 (38-126) U/L Total Protein 7.5 (6.3-8.2) g/dL Albumin 4.7 (3.5-5.0) g/dL Lipase 87 (23-300) U/L Coronavirus (PCR) Not Detected (Not Detectd) Disposition Clinical Impression: Postoperative pain Disposition: HOME SELF-CARE Condition: Good Instructions (If sedation given, give patient instructions): Pain Management After Surgery (DC) Is patient prescribed a controlled substance at d/c from ED?: No Referrals: Jorge Lopez MD [Primary Care Provider] - 1-2 days
[2021-08-23 18:35] LABS: Basophils % (A) 0 %; Eosinophils # (A) 0.3 k/uL (0-0.7); Eosinophils % (A) 3 %; HCT 37.6 % (39.0-53.0); HGB 12.8 gm/dL (13.0-17.5); Lymphocytes # (A) 2.9 k/uL (1.0-4.8); Lymphocytes % (A) 32 %; MCH 30.7 pg (25.0-35.0); MCHC 33.9 g/dL (31.0-37.0); MCV 90.5 fL (80.0-100.0); Mean Platelet Volume 7.9; Monocytes # (A) 0.4 k/uL (0-1.0); Monocytes % (A) 5 %; Neutrophils # (A) 4.9 k/uL (1.3-7.7); Neutrophils % (A) 56 %; Platelet Count 256 k/uL (150-450); RBC 4.15 m/uL (4.30-5.90); RDW 12.2 % (11.5-15.5); WBC 8.8 k/uL (3.8-10.6)
[2021-08-23 18:44] LABS: ALT 31 U/L (4-49); AST 46 U/L (17-59); African American GFR (CKD) >90 (>60 ml/min/1.73 sqM); Albumin 4.7 g/dL (3.5-5.0); Alkaline Phosphatase 72 U/L (38-126); Anion Gap 10 mmol/L; Blood Urea Nitrogen 8 mg/dL (9-20); Calcium 10.4 mg/dL (8.4-10.2); Carbon Dioxide 23 mmol/L (22-30); Chloride 101 mmol/L (98-107); Glucose 108 mg/dL (74-99); Lipase 87 U/L (23-300); Non-African American GFR(CKD) >90 (>60 ml/min/1.73 sqM); Potassium 4.3 mmol/L (3.5-5.1); Sodium 134 mmol/L (137-145); Total Bilirubin 0.3 mg/dL (0.2-1.3); Total Protein 7.5 g/dL (6.3-8.2)
--- NOTE | 2021-08-23 18:48 | XR ---
EXAMINATION TYPE: XR chest 1V portable DATE OF EXAM: 08/23/2021 COMPARISON: 08/19/2021 HISTORY: Abdominal pain TECHNIQUE: Single view FINDINGS: Heart and mediastinum are normal. Lungs are clear of consolidation. There are no hilar mass es. There are chest leads. Costophrenic angles are clear. IMPRESSION: No active cardiopulmonary disease. Normal heart. No change.
--- NOTE | 2021-08-23 19:42 | CT ---
EXAMINATION TYPE: CT abdomen pelvis w con DATE OF EXAM: 08/23/2021 COMPARISON: 03/17/2021 HISTORY: Post Op Kemi pain. CT DLP: 771.5 mGycm Automated exposure control for dose reduction was used. CONTRAST: Performed with IV Contrast, patient injected with 100 mL of Isovue 300. Images obtained from the diaphragm to the floor the pelvis with IV contrast. There is some subsegmental atelectasis right lung base. There is no pleural effusion. Heart size is n ormal. There is some bullous emphysema in the anterior right middle lobe. There is no pericardial eff usion. Liver spleen stomach pancreas appear intact. There are clips from cholecystectomy. Bile ducts are non dilated. There is some free air in the anterior abdomen consistent with recent cholecystectomy. There is no adrenal mass. Kidneys show satisfactory contrast opacification. There is no hydronephrosi s. Ureters are not dilated. There is no retroperitoneal adenopathy. Bladder distends smoothly. There is no inguinal hernia. There is no free fluid in the pelvis. The lumbar vertebra have normal alignment. Posterior elements are intact. There is no compression fra cture. The bony pelvis is intact. Hip joints are intact. There is no mesenteric edema. There is no ascites. Appendix not definitely seen. There is no sign of thickened appendix. There is no evidence of a bowel obstruction. IMPRESSION: . Small pneumoperitoneum consistent with recent surgery. No fluid seen to suggest a bile leak. No bowel obstruction.
[2021-08-23 20:18] VITALS: BP 132/86; PULSE 67; RESP 20
== END 2021-08-23 20:54 | disposition home or self-care (01) ==
LOC: EC 17:20
DX: R10.9 Unspecified abdominal pain (principal); G89.18 Other acute postprocedural pain; I25.10 Atherosclerotic heart disease of native coronary artery without angina pectoris; E78.5 Hyperlipidemia, unspecified; I10 Essential (primary) hypertension; I25.2 Old myocardial infarction; F41.9 Anxiety disorder, unspecified; F31.9 Bipolar disorder, unspecified; F12.90 Cannabis use, unspecified, uncomplicated; Z88.1 Allergy status to other antibiotic agents; Z88.5 Allergy status to narcotic agent; Z90.49 Acquired absence of other specified parts of digestive tract; Z87.891 Personal history of nicotine dependence
CPT/HCPCS: 99285; 36415; 93005; 80053; 83690; 85025; 87635; 71045; 74177; Q9967

== ENCOUNTER 2021-09-01 20:02 | Inpatient (IN) | payer MEDICARE, OTHER ==
--- NOTE | 2021-09-02 00:02 | ED ---
General Adult HPI - General Chief complaint: Recheck/Abnormal Lab/Rx Stated complaint: Re-evaluation for surgery Time Seen by Provider: 09/01/21 23:38 Source: patient, family, EMS Mode of arrival: EMS Limitations: no limitations - History of Present Illness -: days(s) Quality: aching Consistency: constant Improves with: none Worsens with: none Associated Symptoms: denies other symptoms - Related Data Home Medications Medication Instructions Recorded Confirmed busPIRone HCL [Buspar] 7.5 mg PO TID 03/14/21 08/23/21 hydrOXYzine pamoate [hydrOXYzine 50 mg PO HS 03/14/21 08/23/21 PAMOATE] Baclofen [Lioresal] 20 mg PO BID PRN 05/20/21 08/23/21 Pantoprazole Sodium 40 mg PO DAILY 05/20/21 08/23/21 Citalopram Hydrobromide [CeleXA] 20 mg PO DAILY 08/17/21 08/23/21 Loratadine [Claritin] 10 mg PO DAILY 08/17/21 08/23/21 Metoprolol Tartrate [Lopressor] 25 mg PO BID 08/17/21 08/23/21 Sucralfate [Carafate] 1 gm PO BID 08/17/21 08/23/21 OLANZapine 5 mg PO DAILY 08/19/21 08/23/21 Multivitamins, Thera [Multivitamin 1 tab PO DAILY@1200 08/23/21 08/23/21 (formulary)] Nitroglycerin Sl Tabs [Nitrostat] 0.4 mg SL Q5M PRN 08/23/21 08/23/21 Previous Rx's Medication Instructions Recorded Atorvastatin [Lipitor] 20 mg PO HS #30 tab 03/11/21 Acetaminophen Tab [Tylenol] 650 mg PO Q4HR PRN tab 08/22/21 Folic Acid 1 mg PO DAILY@1200 #30 tab 08/22/21 HYDROcodone/APAP 5-325MG [[place] 1 tab PO Q6HR PRN 3 Days #12 tab 08/22/21 5-325] Losartan [Cozaar] 50 mg PO DAILY 30 Days #30 tab 08/22/21 Tamsulosin [Flomax] 0.4 mg PO PC-BRKFST 30 Days #30 08/22/21 capsule Thiamine [Vitamin B-1] 100 mg PO DAILY@1200 #30 tab 08/22/21 hydroCHLOROthiazide [Hydrodiuril] 25 mg PO DAILY 30 Days #30 tab 08/22/21 Allergies Allergy/AdvReac Type Severity Reaction Status Date / Time tramadol Allergy Severe Itching Verified 09/01/21 21:30 hydromorphone [From Dilaudid] AdvReac Confusion Verified 09/01/21 21:30 Review of Systems ROS Statement: Those systems with pertinent positive or pertinent negative responses have been documented in the HPI. ROS Other: All systems not noted in ROS Statement are negative. Constitutional: Denies: fever, chills, weakness Eyes: Denies: vision change Respiratory: Denies: cough, dyspnea Cardiovascular: Denies: chest pain, palpitations, edema, syncope Gastrointestinal: Reports: abdominal pain. Denies: vomiting, diarrhea, constipation Genitourinary: Denies: dysuria, hematuria, testicular pain Musculoskeletal: Denies: back pain Skin: Denies: rash Neurological: Denies: headache, weakness Past Medical History Past Medical History: Coronary Artery Disease (CAD), Chest Pain / Angina, Hyperlipidemia, Hypertension, Myocardial Infarction ([place]) Additional Past Medical History / Comment(s): Recent bronchitis Last Myocardial Infarction Date:: 2020 History of Any Multi-Drug Resistant Organisms: None Reported Past Surgical History: No Surgical Hx Reported, Cholecystectomy, Heart Catheterization Past Anesthesia/Blood Transfusion Reactions: No Reported Reaction Additional Past Anesthesia/Blood Transfusion Reaction / Comment(s): Pt has never had surgery. Past Psychological History: Anxiety, Bipolar, Depression, Panic Disorder Smoking Status: Former smoker Past Alcohol Use History: None Reported Past Drug Use History: Marijuana - Past Family History Father Family Medical History: Myocardial Infarction ([place]) Additional Family Medical History / Comment(s): Father of a [place] at the age of 41 yrs. Mother Family Medical History: Diabetes Mellitus General Exam Limitations: no limitations General appearance: alert, in no apparent distress Head exam: Present: atraumatic, normocephalic Eye exam: Present: normal appearance. Absent: scleral icterus, conjunctival injection Neck exam: Present: normal inspection, full ROM. Absent: tenderness Respiratory exam: Present: normal lung sounds bilaterally. Absent: respiratory distress, wheezes, rales, rhonchi, stridor Cardiovascular Exam: Present: regular rate, normal rhythm, normal heart sounds. Absent: systolic murmur, diastolic murmur, rubs, gallop GI/Abdominal exam: Present: soft. Absent: distended, tenderness, guarding, rebound, rigid, mass Extremities exam: Present: normal inspection, normal capillary refill. Absent: pedal edema, calf tenderness Back exam: Present: normal inspection. Absent: CVA tenderness (R), CVA tenderness (L) Neurological exam: Present: alert Skin exam: Present: warm, dry, intact, normal color. Absent: rash Course Vital Signs 09/01/21 09/02/21 21:27 03:57 Temperature 98 F Pulse Rate 63 61 Respiratory 22 17 Rate Blood Pressure 156/84 146/84 O2 Sat by Pulse 98 100 Oximetry Medical Decision Making - Lab Data Result diagrams: 09/02/21 00:27 09/02/21 00:27 Lab Results 09/02/21 09/02/21 Range/Units 00:27 00:27 WBC 8.0 (3.8-10.6) k/uL RBC 4.46 (4.30-5.90) m/uL Hgb 13.5 (13.0-17.5) gm/dL Hct 39.6 (39.0-53.0) % MCV 88.7 (80.0-100.0) fL MCH 30.2 (25.0-35.0) pg MCHC 34.1 (31.0-37.0) g/dL RDW 12.0 (11.5-15.5) % Plt Count 312 (150-450) k/uL MPV 7.5 Neutrophils % 53 % Lymphocytes % 32 % Monocytes % 8 % Eosinophils % 3 % Basophils % 1 % Neutrophils # 4.2 (1.3-7.7) k/uL Lymphocytes # 2.5 (1.0-4.8) k/uL Monocytes # 0.6 (0-1.0) k/uL Eosinophils # 0.3 (0-0.7) k/uL Basophils # 0.1 (0-0.2) k/uL Sodium 124 L (137-145) mmol/L Potassium 5.0 (3.5-5.1) mmol/L Chloride 90 L (98-107) mmol/L Carbon Dioxide 24 (22-30) mmol/L Anion Gap 10 mmol/L BUN 10 (9-20) mg/dL Creatinine 0.71 (0.66-1.25) mg/dL Est GFR (CKD-EPI)AfAm >90 (>60 ml/min/1.73 sqM) Est GFR (CKD-EPI)NonAf >90 (>60 ml/min/1.73 sqM) Glucose 101 H (74-99) mg/dL Calcium 9.9 (8.4-10.2) mg/dL Total Bilirubin 0.5 (0.2-1.3) mg/dL AST 43 (17-59) U/L ALT 33 (4-49) U/L Alkaline Phosphatase 77 (38-126) U/L Total Protein 7.6 (6.3-8.2) g/dL Albumin 4.6 (3.5-5.0) g/dL Disposition Clinical Impression: Hyponatremia Disposition: ADMITTED IP TO THIS HOSP Condition: Fair Is patient prescribed a controlled substance at d/c from ED?: No Referrals: Jorge Lopez MD [Primary Care Provider] - 1-2 days
[2021-09-02 00:56] LABS: Basophils # (A) 0.1 k/uL (0-0.2); Basophils % (A) 1 %; Eosinophils # (A) 0.3 k/uL (0-0.7); Eosinophils % (A) 3 %; HCT 39.6 % (39.0-53.0); HGB 13.5 gm/dL (13.0-17.5); Lymphocytes # (A) 2.5 k/uL (1.0-4.8); Lymphocytes % (A) 32 %; MCH 30.2 pg (25.0-35.0); MCHC 34.1 g/dL (31.0-37.0); MCV 88.7 fL (80.0-100.0); Mean Platelet Volume 7.5; Monocytes # (A) 0.6 k/uL (0-1.0); Monocytes % (A) 8 %; Neutrophils # (A) 4.2 k/uL (1.3-7.7); Neutrophils % (A) 53 %; Platelet Count 312 k/uL (150-450); RBC 4.46 m/uL (4.30-5.90)
[2021-09-02 01:02] LABS: ALT 33 U/L (4-49); AST 43 U/L (17-59); African American GFR (CKD) >90 (>60 ml/min/1.73 sqM); Albumin 4.6 g/dL (3.5-5.0); Alkaline Phosphatase 77 U/L (38-126); Anion Gap 10 mmol/L; Blood Urea Nitrogen 10 mg/dL (9-20); Calcium 9.9 mg/dL (8.4-10.2); Carbon Dioxide 24 mmol/L (22-30); Chloride 90 mmol/L (98-107); Glucose 101 mg/dL (74-99); Non-African American GFR(CKD) >90 (>60 ml/min/1.73 sqM); Sodium 124 mmol/L (137-145); Total Bilirubin 0.5 mg/dL (0.2-1.3); Total Protein 7.6 g/dL (6.3-8.2)
[2021-09-02] MEDS ORDERED: SODIUM CHLORIDE 0.9% 500 ML 500 ML IV STA (01:41)
[2021-09-02 03:57] VITALS: PULSE 61
[2021-09-02] MEDS ORDERED: HYDROcodone/APAP 5-325MG 1 EACH TAB PO STA ×2 (04:24)
[2021-09-02] MEDS ORDERED: ACETAMINOPHEN TAB 325 MG TAB PO PRN (04:26)
[2021-09-02] MEDS ORDERED: HYDROcodone/APAP 5-325MG 1 EACH TAB PO PRN (04:26)
[2021-09-02] MEDS ORDERED: NALOXONE 0.4 MG/ML 1 ML VIAL IV PRN (04:26)
[2021-09-02] MEDS ORDERED: SODIUM CHLORIDE 0.9% 1,000 ML IV SCH (04:30)
[2021-09-02] MEDS ORDERED: LORazepam 2 MG/ML INJ IV STA (05:13)
[2021-09-02 10:20] LABS: African American GFR (CKD) >90 (>60 ml/min/1.73 sqM); Anion Gap 9 mmol/L; Blood Urea Nitrogen 8 mg/dL (9-20); Calcium 8.5 mg/dL (8.4-10.2); Carbon Dioxide 21 mmol/L (22-30); Chloride 94 mmol/L (98-107); Glucose 97 mg/dL (74-99); Non-African American GFR(CKD) >90 (>60 ml/min/1.73 sqM); Sodium 124 mmol/L (137-145)
[2021-09-02 10:22] LABS: Potassium 4.3 mmol/L (3.5-5.1)
[2021-09-02] MEDS ORDERED: NITROGLYCERIN SL TABS 0.4 MG TAB SUBLINGUAL PRN (11:15)
[2021-09-02] MEDS ORDERED: BACLOFEN 10 MG TAB PO PRN (11:15)
[2021-09-02] MEDS ORDERED: THIAMINE 100 MG TAB PO SCH (12:00)
[2021-09-02] MEDS ORDERED: FOLIC ACID 1 MG TAB PO SCH (12:00)
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
[2021-09-02 13:17] VITALS: BP 151/82; RESP 18; TEMP 98.4
[2021-09-02] MEDS ORDERED: busPIRone HCl 5 MG TAB PO SCH (16:00)
[2021-09-02] MEDS ORDERED: PANTOPRAZOLE 40 MG TABLET PO SCH (17:30)
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
[2021-09-02] MEDS ORDERED: SUCRALFATE 1 GM TAB PO SCH (21:00)
[2021-09-02] MEDS ORDERED: METOPROLOL TARTRATE 25 MG TAB PO SCH (21:00)
[2021-09-02] MEDS ORDERED: ATORVASTATIN 20 MG TAB PO SCH (21:00)
[2021-09-03] MEDS ORDERED: TAMSULOSIN 0.4 MG CAP.ER.24H PO SCH (08:30)
[2021-09-03] MEDS ORDERED: LORATADINE 10 MG TAB PO SCH (09:00)
[2021-09-03] MEDS ORDERED: CITALOPRAM HYDROBROMIDE 20 MG TAB PO SCH (09:00)
[2021-09-03] MEDS ORDERED: LOSARTAN 50 MG TAB PO SCH (09:00)
== END 2021-09-02 13:00 | disposition home or self-care (01) | DRG 641 ==
LOC: EC 20:02 → 5NMEDONC 09-02 04:26
PROVIDERS: ADMIT Hospitalist; ATTEND Hospitalist
DX: E87.1 Hypo-osmolality and hyponatremia (principal); E78.00 Pure hypercholesterolemia, unspecified; F31.9 Bipolar disorder, unspecified; Z20.822 Contact with and (suspected) exposure to COVID-19; M79.18 Myalgia, other site; T50.2X5A Adverse effect of carbonic-anhydrase inhibitors, benzothiadiazides and other diuretics, initial encounter; I10 Essential (primary) hypertension; E78.5 Hyperlipidemia, unspecified; I25.10 Atherosclerotic heart disease of native coronary artery without angina pectoris; I25.2 Old myocardial infarction; F41.0 Panic disorder [episodic paroxysmal anxiety]; F10.10 Alcohol abuse, uncomplicated; F17.210 Nicotine dependence, cigarettes, uncomplicated; Z79.899 Other long term (current) drug therapy; Z90.49 Acquired absence of other specified parts of digestive tract; Z87.19 Personal history of other diseases of the digestive system; Z98.890 Other specified postprocedural states; Z88.5 Allergy status to narcotic agent; V10.4XXA Pedal cycle driver injured in collision with pedestrian or animal in traffic accident, initial encounter; Z82.49 Family history of ischemic heart disease and other diseases of the circulatory system; Z83.3 Family history of diabetes mellitus
CPT/HCPCS: 36415; 80048; 80053; 85025; 87635; 99285

== ENCOUNTER 2021-09-03 23:46 | Emergency (ER) | payer MEDICARE, OTHER ==
[2021-09-04 00:21] VITALS: BP 147/79; PULSE 66; RESP 20; TEMP 98.3
[2021-09-04] MEDS ORDERED: SODIUM CHLORIDE 0.9% 1,000 ML IV STA ×2 (02:06)
--- NOTE | 2021-09-04 02:11 | ED ---
Recheck HPI - General Chief Complaint: Recheck/Abnormal Lab/Rx Stated Complaint: Pain all over Time Seen by Provider: 09/04/21 00:58 Source: patient, RN notes reviewed, old records reviewed Mode of arrival: ambulatory Limitations: no limitations - History of Present Illness Initial Comments: 6 is a 38-year-old male who has multiple complaints complaints of chest pain severe chest pain epigastric pain abdominal pain rating to back to her pain he has normal head patient shaky difficult to tell story because is very tremoring possibly anxious could be pain related. Patient is diaphoretic currently. Patient complains of shortness of breath abdominal pain with nausea no vomiting. States that he has history of low sodium this patient feels a MD Complaint: abnormal lab (History of abnormal lab values), other (History of chronic pain) -: days(s) Returns Today for: Called Because of Abnormal Lab/Test, persistent/worsening pain related to initial visit Symptoms Since Prior Visit: worsening pain Context: other (Patient very anxious regarding chest pain and abdominal pain) Associated Symptoms: none Treatments Prior to Arrival: Given Pain Meds on - Related Data Home Medications Medication Instructions Recorded Confirmed busPIRone HCL [Buspar] 7.5 mg PO TID 03/14/21 09/02/21 hydrOXYzine pamoate [hydrOXYzine 50 mg PO HS 03/14/21 09/02/21 PAMOATE] Baclofen [Lioresal] 20 mg PO BID PRN 05/20/21 09/02/21 Citalopram Hydrobromide [CeleXA] 20 mg PO DAILY 08/17/21 09/02/21 Loratadine [Claritin] 10 mg PO DAILY 08/17/21 09/02/21 Metoprolol Tartrate [Lopressor] 25 mg PO BID 08/17/21 09/02/21 Sucralfate [Carafate] 1 gm PO BID 08/17/21 09/02/21 Multivitamins, Thera [Multivitamin 1 tab PO DAILY@1200 08/23/21 09/02/21 (formulary)] Nitroglycerin Sl Tabs [Nitrostat] 0.4 mg SL Q5M PRN 08/23/21 09/02/21 Omeprazole 20 mg PO BID 09/02/21 09/02/21 Previous Rx's Medication Instructions Recorded Atorvastatin [Lipitor] 20 mg PO HS #30 tab 03/11/21 Folic Acid 1 mg PO DAILY@1200 #30 tab 08/22/21 Losartan [Cozaar] 50 mg PO DAILY 30 Days #30 tab 08/22/21 Tamsulosin [Flomax] 0.4 mg PO PC-BRKFST 30 Days #30 08/22/21 capsule Thiamine [Vitamin B-1] 100 mg PO DAILY@1200 #30 tab 08/22/21 Acetaminophen Tab [Tylenol] 650 mg PO Q6HR PRN tab 09/02/21 Allergies Allergy/AdvReac Type Severity Reaction Status Date / Time tramadol Allergy Severe Itching Verified 09/04/21 00:21 hydromorphone [From Dilaudid] AdvReac Confusion Verified 09/04/21 00:21 Review of Systems ROS Statement: Those systems with pertinent positive or pertinent negative responses have been documented in the HPI. ROS Other: All systems not noted in ROS Statement are negative. Past Medical History Past Medical History: Coronary Artery Disease (CAD), Chest Pain / Angina, Hyperlipidemia, Hypertension, Myocardial Infarction (SC) Additional Past Medical History / Comment(s): Recent bronchitis Last Myocardial Infarction Date:: 2020 History of Any Multi-Drug Resistant Organisms: None Reported Past Surgical History: Cholecystectomy, Heart Catheterization Past Anesthesia/Blood Transfusion Reactions: No Reported Reaction Additional Past Anesthesia/Blood Transfusion Reaction / Comment(s): Pt has never had surgery. Past Psychological History: Anxiety, Bipolar, Depression, Panic Disorder Smoking Status: Former smoker Past Alcohol Use History: None Reported Past Drug Use History: Marijuana - Past Family History Father Family Medical History: Myocardial Infarction (SC) Additional Family Medical History / Comment(s): Father of a SC at the age of 41 yrs. Mother Family Medical History: Diabetes Mellitus General Exam Limitations: no limitations General appearance: alert, in no apparent distress, anxious Head exam: Present: atraumatic, normocephalic, normal inspection Eye exam: Present: normal appearance, PERRL, EOMI. Absent: scleral icterus, conjunctival injection, periorbital swelling ENT exam: Present: normal exam, mucous membranes moist Neck exam: Present: normal inspection. Absent: tenderness, meningismus, lymphadenopathy Respiratory exam: Present: normal lung sounds bilaterally. Absent: respiratory distress, wheezes, rales, rhonchi, stridor Cardiovascular Exam: Present: regular rate, normal rhythm, normal heart sounds. Absent: systolic murmur, diastolic murmur, rubs, gallop, clicks GI/Abdominal exam: Present: soft, normal bowel sounds. Absent: distended, tenderness, guarding, rebound, rigid Extremities exam: Present: normal inspection, full ROM, normal capillary refill. Absent: tenderness, pedal edema, joint swelling, calf tenderness Back exam: Present: normal inspection Neurological exam: Present: alert, oriented X3, CN II-XII intact Psychiatric exam: Present: normal affect, normal mood Skin exam: Present: warm, dry, intact, normal color. Absent: rash Course Vital Signs 09/04/21 00:17 Temperature 98.3 F Pulse Rate 66 Respiratory 20 Rate Blood Pressure 147/79 O2 Sat by Pulse 99 Oximetry - Reevaluation(s) Reevaluation #1: Medical record is reviewed Patient symptoms are improved here in the ER Patient informed results and questions answered Medical Decision Making - Medical Decision Making 46 male well-known facility for some anxiety mental health issues coming in for pain all over. Patient has adequate current pain control in no acute distress patient can be discharged home - Lab Data Result diagrams: 09/04/21 02:15 09/04/21 02:15 Lab Results 09/04/21 09/04/21 09/04/21 Range/Units 02:15 02:15 02:15 WBC 7.1 (3.8-10.6) k/uL RBC 4.26 L (4.30-5.90) m/uL Hgb 12.6 L (13.0-17.5) gm/dL Hct 37.6 L (39.0-53.0) % MCV 88.1 (80.0-100.0) fL MCH 29.6 (25.0-35.0) pg MCHC 33.5 (31.0-37.0) g/dL RDW 12.0 (11.5-15.5) % Plt Count 331 (150-450) k/uL MPV 7.2 Neutrophils % 53 % Lymphocytes % 34 % Monocytes % 5 % Eosinophils % 5 % Basophils % 1 % Neutrophils # 3.8 (1.3-7.7) k/uL Lymphocytes # 2.4 (1.0-4.8) k/uL Monocytes # 0.4 (0-1.0) k/uL Eosinophils # 0.3 (0-0.7) k/uL Basophils # 0.1 (0-0.2) k/uL PT 9.5 (9.0-12.0) sec INR 0.9 (<1.2) APTT 23.3 (22.0-30.0) sec Sodium (137-145) mmol/L Potassium (3.5-5.1) mmol/L Chloride (98-107) mmol/L Carbon Dioxide (22-30) mmol/L Anion Gap mmol/L BUN (9-20) mg/dL Creatinine (0.66-1.25) mg/dL Est GFR (CKD-EPI)AfAm (>60 ml/min/1.73 sqM) Est GFR (CKD-EPI)NonAf (>60 ml/min/1.73 sqM) Glucose (74-99) mg/dL Plasma Lactic Acid Javier (0.7-2.0) mmol/L Calcium (8.4-10.2) mg/dL Phosphorus (2.5-4.5) mg/dL Magnesium (1.6-2.3) mg/dL Total Bilirubin (0.2-1.3) mg/dL AST (17-59) U/L ALT (4-49) U/L Alkaline Phosphatase (38-126) U/L Troponin I (0.000-0.034) ng/mL NT-Pro-B Natriuret Pep pg/mL Total Protein (6.3-8.2) g/dL Albumin (3.5-5.0) g/dL Urine Color Light Yellow Urine Appearance Clear (Clear) Urine pH 8.0 (5.0-8.0) Ur Specific [place] 1.007 (1.001-1.035) Urine Protein Negative (Negative) Urine Glucose (UA) Negative (Negative) Urine Ketones Negative (Negative) Urine Blood Negative (Negative) Urine Nitrite Negative (Negative) Urine Bilirubin Negative (Negative) Urine Urobilinogen <2.0 (<2.0) mg/dL Ur Leukocyte Esterase Negative (Negative) Serum Alcohol mg/dL 09/04/21 09/04/21 09/04/21 Range/Units 02:15 02:15 02:15 WBC (3.8-10.6) k/uL RBC (4.30-5.90) m/uL Hgb (13.0-17.5) gm/dL Hct (39.0-53.0) % MCV (80.0-100.0) fL MCH (25.0-35.0) pg MCHC (31.0-37.0) g/dL RDW (11.5-15.5) % Plt Count (150-450) k/uL MPV Neutrophils % % Lymphocytes % % Monocytes % % Eosinophils % % Basophils % % Neutrophils # (1.3-7.7) k/uL Lymphocytes # (1.0-4.8) k/uL Monocytes # (0-1.0) k/uL Eosinophils # (0-0.7) k/uL Basophils # (0-0.2) k/uL PT (9.0-12.0) sec INR (<1.2) APTT (22.0-30.0) sec Sodium 128 L (137-145) mmol/L Potassium 4.9 (3.5-5.1) mmol/L Chloride 97 L (98-107) mmol/L Carbon Dioxide 22 (22-30) mmol/L Anion Gap 9 mmol/L BUN 6 L (9-20) mg/dL Creatinine 0.67 (0.66-1.25) mg/dL Est GFR (CKD-EPI)AfAm >90 (>60 ml/min/1.73 sqM) Est GFR (CKD-EPI)NonAf >90 (>60 ml/min/1.73 sqM) Glucose 101 H (74-99) mg/dL Plasma Lactic Acid Javier 1.0 (0.7-2.0) mmol/L Calcium 9.9 (8.4-10.2) mg/dL Phosphorus 3.9 (2.5-4.5) mg/dL Magnesium 1.7 (1.6-2.3) mg/dL Total Bilirubin 0.2 (0.2-1.3) mg/dL AST 33 (17-59) U/L ALT 28 (4-49) U/L Alkaline Phosphatase 76 (38-126) U/L Troponin I <0.012 (0.000-0.034) ng/mL NT-Pro-B Natriuret Pep pg/mL Total Protein 7.0 (6.3-8.2) g/dL Albumin 4.3 (3.5-5.0) g/dL Urine Color Urine Appearance (Clear) Urine pH (5.0-8.0) Ur Specific [place] (1.001-1.035) Urine Protein (Negative) Urine Glucose (UA) (Negative) Urine Ketones (Negative) Urine Blood (Negative) Urine Nitrite (Negative) Urine Bilirubin (Negative) Urine Urobilinogen (<2.0) mg/dL Ur Leukocyte Esterase (Negative) Serum Alcohol <10 mg/dL 09/04/21 Range/Units 02:15 WBC (3.8-10.6) k/uL RBC (4.30-5.90) m/uL Hgb (13.0-17.5) gm/dL Hct (39.0-53.0) % MCV (80.0-100.0) fL MCH (25.0-35.0) pg MCHC (31.0-37.0) g/dL RDW (11.5-15.5) % Plt Count (150-450) k/uL MPV Neutrophils % % Lymphocytes % % Monocytes % % Eosinophils % % Basophils % % Neutrophils # (1.3-7.7) k/uL Lymphocytes # (1.0-4.8) k/uL Monocytes # (0-1.0) k/uL Eosinophils # (0-0.7) k/uL Basophils # (0-0.2) k/uL PT (9.0-12.0) sec INR (<1.2) APTT (22.0-30.0) sec Sodium (137-145) mmol/L Potassium (3.5-5.1) mmol/L Chloride (98-107) mmol/L Carbon Dioxide (22-30) mmol/L Anion Gap mmol/L BUN (9-20) mg/dL Creatinine (0.66-1.25) mg/dL Est GFR (CKD-EPI)AfAm (>60 ml/min/1.73 sqM) Est GFR (CKD-EPI)NonAf (>60 ml/min/1.73 sqM) Glucose (74-99) mg/dL Plasma Lactic Acid Javier (0.7-2.0) mmol/L Calcium (8.4-10.2) mg/dL Phosphorus (2.5-4.5) mg/dL Magnesium (1.6-2.3) mg/dL Total Bilirubin (0.2-1.3) mg/dL AST (17-59) U/L ALT (4-49) U/L Alkaline Phosphatase (38-126) U/L Troponin I (0.000-0.034) ng/mL NT-Pro-B Natriuret Pep 83 pg/mL Total Protein (6.3-8.2) g/dL Albumin (3.5-5.0) g/dL Urine Color Urine Appearance (Clear) Urine pH (5.0-8.0) Ur Specific [place] (1.001-1.035) Urine Protein (Negative) Urine Glucose (UA) (Negative) Urine Ketones (Negative) Urine Blood (Negative) Urine Nitrite (Negative) Urine Bilirubin (Negative) Urine Urobilinogen (<2.0) mg/dL Ur Leukocyte Esterase (Negative) Serum Alcohol mg/dL - EKG Data -: EKG Interpreted by Me (EKG is sinus rhythm 65 ME 164 QRS 82 QTC 4:30) - Radiology Data Radiology results: report reviewed (CTA chest abdomen pelvis is negative for acute disease), image reviewed Disposition Clinical Impression: Abdominal pain, Weakness Disposition: HOME SELF-CARE Condition: Good Instructions (If sedation given, give patient instructions): Abdominal Pain (ED) Is patient prescribed a controlled substance at d/c from ED?: No Referrals: Jorge Lopez MD [Primary Care Provider] - 1-2 days
[2021-09-04 02:42] LABS: Basophils # (A) 0.1 k/uL (0-0.2); Basophils % (A) 1 %; Eosinophils # (A) 0.3 k/uL (0-0.7); Eosinophils % (A) 5 %; HCT 37.6 % (39.0-53.0); HGB 12.6 gm/dL (13.0-17.5); Lymphocytes # (A) 2.4 k/uL (1.0-4.8); Lymphocytes % (A) 34 %; MCH 29.6 pg (25.0-35.0); MCHC 33.5 g/dL (31.0-37.0); MCV 88.1 fL (80.0-100.0); Mean Platelet Volume 7.2; Monocytes # (A) 0.4 k/uL (0-1.0); Monocytes % (A) 5 %; Neutrophils # (A) 3.8 k/uL (1.3-7.7); Neutrophils % (A) 53 %; Platelet Count 331 k/uL (150-450); RBC 4.26 m/uL (4.30-5.90); WBC 7.1 k/uL (3.8-10.6)
[2021-09-04 02:47] LABS: Appearance,Urine Clear (Clear); Bilirubin,Urine Negative (Negative); Blood,Urine Negative (Negative); Color,Urine Light Yellow; Glucose,Urine (UA) Negative (Negative); Ketones,Urine Negative (Negative); Leukocyte Esterase,Urine Negative (Negative); Nitrite,Urine Negative (Negative); Protein,Urine Negative (Negative); Specific Gravity,Urine 1.007 (1.001-1.035); Urobilinogen,Urine <2.0 mg/dL (<2.0)
[2021-09-04 02:57] LABS: INR 0.9 (<1.2); Partial Thromboplastin Time 23.3 sec (22.0-30.0); Prothrombin Time 9.5 sec (9.0-12.0)
[2021-09-04 02:59] LABS: ALT 28 U/L (4-49); AST 33 U/L (17-59); African American GFR (CKD) >90 (>60 ml/min/1.73 sqM); Albumin 4.3 g/dL (3.5-5.0); Alcohol <10 mg/dL; Alkaline Phosphatase 76 U/L (38-126); Anion Gap 9 mmol/L; Blood Urea Nitrogen 6 mg/dL (9-20); Calcium 9.9 mg/dL (8.4-10.2); Carbon Dioxide 22 mmol/L (22-30); Chloride 97 mmol/L (98-107); Glucose 101 mg/dL (74-99); Magnesium 1.7 mg/dL (1.6-2.3); Non-African American GFR(CKD) >90 (>60 ml/min/1.73 sqM); Phosphorus 3.9 mg/dL (2.5-4.5); Potassium 4.9 mmol/L (3.5-5.1); Sodium 128 mmol/L (137-145); Total Bilirubin 0.2 mg/dL (0.2-1.3)
--- NOTE | 2021-09-04 03:10 | CT ---
EXAMINATION TYPE: CT angio chest DATE OF EXAM: 09/04/2021 COMPARISON: None HISTORY: pain CT DLP: 313.8 mGycm Automated exposure control for dose reduction was used. CONTRAST: Performed with IV Contrast, patient injected with 100 mL of Isovue 370. There are 3-D post processed images. There is some diffuse pulmonary emphysema. There is interstitial minimal infiltrate at the lung bases . There is no pleural effusion. Heart size is normal. There is no pericardial effusion. There is no m ediastinal adenopathy. There are no hilar masses. There is normal contrast opacification of the pulmonary arteries. There are no filling defects. The thoracic vertebra appear intact. There is no compression fracture. Sternum is intact. Upper abdom inal soft tissues are intact. IMPRESSION: No evidence of pulmonary embolism. Pulmonary emphysema. There is significant clearing of the basilar pulmonary infiltrates and atelectasis compared to 03/17/2021 exam.
--- NOTE | 2021-09-04 03:20 | CT ---
EXAMINATION TYPE: CT abdomen pelvis w con DATE OF EXAM: 09/04/2021 COMPARISON: 08/23/2021 HISTORY: pain CT DLP: 750.8 mGycm Automated exposure control for dose reduction was used. CONTRAST: Performed with IV Contrast, patient injected with 100 mL of Isovue 370. Images obtained from the diaphragm to the floor the pelvis with IV contrast. Lung bases are clear of consolidation. There is mild subsegmental atelectasis. There is no pleural effusion. Heart size is no rmal. There is no pericardial effusion. Liver spleen pancreas stomach appear intact. Gallbladder is absent. There is clips from cholecystecto my. There is no adrenal mass. Kidneys show satisfactory contrast opacification. There is no hydronephrosi s. There is no free fluid in the pelvis. There is retained fecal material in the rectum that measures 5.4 cm. Bladder distends smoothly. Delayed images show normal renal excretion. There is no mesenteric edema. There is no ascites or free air. There is no bowel obstruction. Appendi x is not seen. There is no sign of thickened appendix. There is some atherosclerotic vascular calcifi cation. The lumbar vertebra have normal spacing and alignment. Posterior elements are intact. Bony pelvis is intact. The hip joints are intact. IMPRESSION: Mild subsegmental atelectasis right lung base. No acute abnormality of the abdomen pelvis. No adverse change compared to old exam. There is clearing of the pneumoperitoneum compared to old exam.
== END 2021-09-04 04:14 | disposition home or self-care (01) ==
LOC: EC 23:46
DX: R53.1 Weakness (principal); R10.13 Epigastric pain; I10 Essential (primary) hypertension; E78.5 Hyperlipidemia, unspecified; I25.2 Old myocardial infarction; I25.10 Atherosclerotic heart disease of native coronary artery without angina pectoris; F31.9 Bipolar disorder, unspecified; F41.9 Anxiety disorder, unspecified; F12.90 Cannabis use, unspecified, uncomplicated; Z87.891 Personal history of nicotine dependence; Z79.899 Other long term (current) drug therapy
CPT/HCPCS: 36415; 83880; 80053; 83605; 83735; 84100; 84484; 85025; 85610; 85730; 81003; 71275; 74177; 99285; G0480; Q9967; 80320

== ENCOUNTER 2021-09-15 20:46 | Emergency (ER) | payer MEDICARE, OTHER ==
[2021-09-15 21:03] VITALS: BP 182/92; PULSE 62; RESP 18; TEMP 97.7
[2021-09-15] MEDS ORDERED: MORPHINE SULFATE 4 MG/ML SYRINGE IM STA (22:14)
--- NOTE | 2021-09-15 22:19 | ED ---
Weakness HPI - General Chief complaint: Back Pain/Injury Stated complaint: recheck Time Seen by Provider: 09/15/21 21:17 Source: EMS, RN notes reviewed, old records reviewed Mode of arrival: EMS Limitations: no limitations - History of Present Illness Initial comments: This is a 46-year-old male well-known to this ER. Patient also complains of recent foot injury. She has history of CAD high blood pressure high cholesterol no current chest pain. Patient states he is recent head injury and complaining of foot pain. Patient also admits taking pain medication, which did not help his pain sore throat and took marijuana and symptoms progressively worse. Patient admits to being very anxious and is complaining of pain in her pain and generalized body aches and pains MD Complaint: generalized weakness, lack of energy -: minutes(s) Location: generalized Severity: moderate Severity scale (1-10): 4 Quality: tingling, numbness Consistency: constant Worsens with: none Context: history of similar Associated Symptoms: confusion, headaches, loss of appetite, nausea/vomiting - Related Data Home Medications Medication Instructions Recorded Confirmed busPIRone HCL [Buspar] 7.5 mg PO TID 03/14/21 09/02/21 hydrOXYzine pamoate [hydrOXYzine 50 mg PO HS 03/14/21 09/02/21 PAMOATE] Baclofen [Lioresal] 20 mg PO BID PRN 05/20/21 09/02/21 Citalopram Hydrobromide [CeleXA] 20 mg PO DAILY 08/17/21 09/02/21 Loratadine [Claritin] 10 mg PO DAILY 08/17/21 09/02/21 Metoprolol Tartrate [Lopressor] 25 mg PO BID 08/17/21 09/02/21 Sucralfate [Carafate] 1 gm PO BID 08/17/21 09/02/21 Multivitamins, Thera [Multivitamin 1 tab PO DAILY@1200 08/23/21 09/02/21 (formulary)] Nitroglycerin Sl Tabs [Nitrostat] 0.4 mg SL Q5M PRN 08/23/21 09/02/21 Omeprazole 20 mg PO BID 09/02/21 09/02/21 Previous Rx's Medication Instructions Recorded Atorvastatin [Lipitor] 20 mg PO HS #30 tab 03/11/21 Folic Acid 1 mg PO DAILY@1200 #30 tab 08/22/21 Losartan [Cozaar] 50 mg PO DAILY 30 Days #30 tab 08/22/21 Tamsulosin [Flomax] 0.4 mg PO PC-BRKFST 30 Days #30 08/22/21 capsule Thiamine [Vitamin B-1] 100 mg PO DAILY@1200 #30 tab 08/22/21 Acetaminophen Tab [Tylenol] 650 mg PO Q6HR PRN tab 09/02/21 Allergies Allergy/AdvReac Type Severity Reaction Status Date / Time tramadol Allergy Severe Itching Verified 09/04/21 00:21 hydromorphone [From Dilaudid] AdvReac Confusion Verified 09/04/21 00:21 Review of Systems ROS Statement: Those systems with pertinent positive or pertinent negative responses have been documented in the HPI. ROS Other: All systems not noted in ROS Statement are negative. Past Medical History Past Medical History: Coronary Artery Disease (CAD), Chest Pain / Angina, Hyperlipidemia, Hypertension, Myocardial Infarction ([place]) Additional Past Medical History / Comment(s): Recent bronchitis Last Myocardial Infarction Date:: 2020 History of Any Multi-Drug Resistant Organisms: None Reported Past Surgical History: Cholecystectomy, Heart Catheterization Past Anesthesia/Blood Transfusion Reactions: No Reported Reaction Additional Past Anesthesia/Blood Transfusion Reaction / Comment(s): Pt has never had surgery. Past Psychological History: Anxiety, Bipolar, Depression, Panic Disorder Smoking Status: Former smoker Past Alcohol Use History: None Reported Past Drug Use History: Marijuana - Past Family History Father Family Medical History: Myocardial Infarction ([place]) Additional Family Medical History / Comment(s): Father of a [place] at the age of 41 yrs. Mother Family Medical History: Diabetes Mellitus General Exam Limitations: no limitations General appearance: alert, in no apparent distress Head exam: Present: atraumatic, normocephalic, normal inspection Eye exam: Present: normal appearance, PERRL, EOMI. Absent: scleral icterus, conjunctival injection, periorbital swelling ENT exam: Present: normal exam, mucous membranes moist Neck exam: Present: normal inspection. Absent: tenderness, meningismus, lymphadenopathy Respiratory exam: Present: normal lung sounds bilaterally. Absent: respiratory distress, wheezes, rales, rhonchi, stridor Cardiovascular Exam: Present: regular rate, normal rhythm, normal heart sounds. Absent: systolic murmur, diastolic murmur, rubs, gallop, clicks GI/Abdominal exam: Present: soft, normal bowel sounds. Absent: distended, tenderness, guarding, rebound, rigid Extremities exam: Present: normal inspection, full ROM, normal capillary refill. Absent: tenderness, pedal edema, joint swelling, calf tenderness Back exam: Present: normal inspection Neurological exam: Present: alert, oriented X3, CN II-XII intact Psychiatric exam: Present: normal affect, normal mood Skin exam: Present: warm, dry, intact, normal color. Absent: rash Course Vital Signs 09/15/21 20:51 Temperature 97.7 F Pulse Rate 62 Respiratory 18 Rate Blood Pressure 182/92 O2 Sat by Pulse 99 Oximetry - Reevaluation(s) Reevaluation #1: 09/15/21 22:17 Medical record is reviewed Reevaluation #2: 09/15/21 23:17 Patient has no current complaints Reevaluation #3: 09/15/21 23:17 Patient informed results, questions answered Medical Decision Making - Medical Decision Making 46 male to the ER with multiple complaints. Patient has normal foot x-ray. No evidence of trauma for the computed tomography scan. This time patient can be discharged Disposition Clinical Impression: Altered mental status, Marijuana use, Weakness, Postoperative pain, Left foot pain, Neuropathy Disposition: HOME SELF-CARE Condition: Fair Instructions (If sedation given, give patient instructions): Swollen Joint (ED), Arthralgia (ED) Is patient prescribed a controlled substance at d/c from ED?: No Referrals: None,Stated [Primary Care Provider] - 1-2 days
--- NOTE | 2021-09-15 22:35 | XR ---
EXAMINATION TYPE: XR foot complete RT DATE OF EXAM: 09/15/2021 COMPARISON: NONE HISTORY: Foot pain TECHNIQUE: 3 views FINDINGS: There is hallux varus mild deformity. Metatarsals appear intact. I see no fracture. There a re no erosions. The hindfoot is intact. IMPRESSION: Hallux varus deformity. This could relate to some ligamentous laxity. No fracture seen.
== END 2021-09-15 23:01 | disposition home or self-care (01) ==
LOC: EC 20:46
DX: R41.82 Altered mental status, unspecified (principal); F12.90 Cannabis use, unspecified, uncomplicated; R53.1 Weakness; M79.672 Pain in left foot; G89.18 Other acute postprocedural pain; G62.9 Polyneuropathy, unspecified; I25.10 Atherosclerotic heart disease of native coronary artery without angina pectoris; E78.5 Hyperlipidemia, unspecified; I10 Essential (primary) hypertension; I25.2 Old myocardial infarction; F31.9 Bipolar disorder, unspecified; F41.0 Panic disorder [episodic paroxysmal anxiety]; Z87.891 Personal history of nicotine dependence
CPT/HCPCS: 73630; 99283; 96372; J2270

== ENCOUNTER 2021-09-20 10:38 | Emergency (ER) | payer MEDICARE, OTHER ==
[2021-09-20 10:49] VITALS: BP 183/94; PULSE 63; RESP 20; TEMP 99.4
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
--- NOTE | 2021-09-20 11:43 | ED ---
Disposition Clinical Impression: Chronic pain Disposition: HOME SELF-CARE Condition: Stable Instructions (If sedation given, give patient instructions): Chronic Pain (ED) Additional Instructions: Please do follow-up with primary care physician in the next day or 2 as previously discussed. Please discuss with your primary care physician regarding treatment for fungal infection of toenails. Return for change in symptoms or other concerns. Is patient prescribed a controlled substance at d/c from ED?: No Referrals: Mercedes Benitez MD [REFERRING] - 1-2 days Time of Disposition: 11:43
== END 2021-09-20 11:55 | disposition home or self-care (01) ==
LOC: EC 10:38
DX: M79.10 Myalgia, unspecified site (principal); G89.29 Other chronic pain; I25.10 Atherosclerotic heart disease of native coronary artery without angina pectoris; E78.5 Hyperlipidemia, unspecified; I10 Essential (primary) hypertension; I25.2 Old myocardial infarction; F41.9 Anxiety disorder, unspecified; F31.9 Bipolar disorder, unspecified; F17.200 Nicotine dependence, unspecified, uncomplicated; F12.90 Cannabis use, unspecified, uncomplicated; Z88.1 Allergy status to other antibiotic agents; Z88.5 Allergy status to narcotic agent; Z90.49 Acquired absence of other specified parts of digestive tract
CPT/HCPCS: 99283

== ENCOUNTER 2021-09-21 13:36 | Emergency (ER) | payer MEDICARE, OTHER ==
[2021-09-21 13:45] VITALS: PULSE 64
[2021-09-21 13:49] VITALS: RESP 18; TEMP 97.8
[2021-09-21] MEDS ORDERED: NITROGLYCERIN OINT 1 INCH/GM PACKET TOPICAL STA (14:10)
[2021-09-21] MEDS ORDERED: ASPIRIN 81 MG PO STA (14:10)
--- NOTE | 2021-09-21 14:14 | ED ---
General Adult HPI - General Chief complaint: Chest Pain Stated complaint: Chronic pain Time Seen by Provider: 09/21/21 13:45 Source: patient, EMS, RN notes reviewed, old records reviewed Mode of arrival: EMS Limitations: no limitations - History of Present Illness Initial comments: Patient is a 46-year-old male presenting to the emergency Department with complaints of chronic chest discomfort. Patient is somewhat a poor historian. Patient claims he was here for this yesterday however his history is inconsistent. Patient states he has chest discomfort frequently similar to this. Patient states he has been having it daily for weeks or months. Upon further questioning, patient admits that he is actually been having symptoms for years, daily. Patient states no change in symptoms. Chart review reveals last heart catheterization 6 months ago without concern for stenosis or plaque buildup. Symptoms today started after smoking and drinking. - Related Data Home Medications Medication Instructions Recorded Confirmed busPIRone HCL [Buspar] 7.5 mg PO TID 03/14/21 09/02/21 hydrOXYzine pamoate [hydrOXYzine 50 mg PO HS 03/14/21 09/02/21 PAMOATE] Baclofen [Lioresal] 20 mg PO BID PRN 05/20/21 09/02/21 Citalopram Hydrobromide [CeleXA] 20 mg PO DAILY 08/17/21 09/02/21 Loratadine [Claritin] 10 mg PO DAILY 08/17/21 09/02/21 Metoprolol Tartrate [Lopressor] 25 mg PO BID 08/17/21 09/02/21 Sucralfate [Carafate] 1 gm PO BID 08/17/21 09/02/21 Multivitamins, Thera [Multivitamin 1 tab PO DAILY@1200 08/23/21 09/02/21 (formulary)] Nitroglycerin Sl Tabs [Nitrostat] 0.4 mg SL Q5M PRN 08/23/21 09/02/21 Omeprazole 20 mg PO BID 09/02/21 09/02/21 Previous Rx's Medication Instructions Recorded Atorvastatin [Lipitor] 20 mg PO HS #30 tab 03/11/21 Folic Acid 1 mg PO DAILY@1200 #30 tab 08/22/21 Losartan [Cozaar] 50 mg PO DAILY 30 Days #30 tab 08/22/21 Tamsulosin [Flomax] 0.4 mg PO PC-BRKFST 30 Days #30 08/22/21 capsule Thiamine [Vitamin B-1] 100 mg PO DAILY@1200 #30 tab 08/22/21 Acetaminophen Tab [Tylenol] 650 mg PO Q6HR PRN tab 09/02/21 Allergies Allergy/AdvReac Type Severity Reaction Status Date / Time tramadol Allergy Severe Itching Verified 09/20/21 10:44 hydromorphone [From Dilaudid] AdvReac Confusion Verified 09/20/21 10:44 Review of Systems ROS Statement: Those systems with pertinent positive or pertinent negative responses have been documented in the HPI. ROS Other: All systems not noted in ROS Statement are negative. Constitutional: Reports: other (Diffuse chronic pain). Denies: fever Eyes: Denies: eye pain ENT: Denies: ear pain Respiratory: Denies: cough Cardiovascular: Reports: as per HPI, chest pain Endocrine: Denies: fatigue Gastrointestinal: Denies: abdominal pain Genitourinary: Denies: dysuria Musculoskeletal: Denies: back pain Skin: Denies: rash Neurological: Denies: weakness Past Medical History Past Medical History: Coronary Artery Disease (CAD), Chest Pain / Angina, Hyperlipidemia, Hypertension, Myocardial Infarction ([place]) Additional Past Medical History / Comment(s): Recent bronchitis Last Myocardial Infarction Date:: 2020 History of Any Multi-Drug Resistant Organisms: None Reported Past Surgical History: Cholecystectomy, Heart Catheterization Past Anesthesia/Blood Transfusion Reactions: No Reported Reaction Additional Past Anesthesia/Blood Transfusion Reaction / Comment(s): Pt has never had surgery. Past Psychological History: Anxiety, Bipolar, Depression, Panic Disorder Smoking Status: Current every day smoker Past Alcohol Use History: None Reported Past Drug Use History: Marijuana - Past Family History Father Family Medical History: Myocardial Infarction ([place]) Additional Family Medical History / Comment(s): Father of a [place] at the age of 41 yrs. Mother Family Medical History: Diabetes Mellitus General Exam Limitations: no limitations General appearance: alert, in no apparent distress Head exam: Present: normocephalic Eye exam: Present: normal appearance ENT exam: Present: normal oropharynx Neck exam: Present: normal inspection Respiratory exam: Present: normal lung sounds bilaterally, chest wall tenderness Cardiovascular Exam: Present: regular rate, normal rhythm Expanded Peripheral pulses: 2+: Radial (R), Radial (L), Posterior Tibialis (R), Posterior Tibialis (L) GI/Abdominal exam: Present: soft. Absent: tenderness Extremities exam: Present: normal inspection. Absent: pedal edema, calf ten derness Neurological exam: Present: alert Psychiatric exam: Present: normal affect, normal mood Skin exam: Present: normal color Course Vital Signs 09/21/21 09/21/21 13:44 13:45 Temperature 97.8 F Pulse Rate 64 Pulse Rate [ 64 Right Pulse Oximetery] Respiratory 18 Rate Blood Pressure 167/89 O2 Sat by Pulse 96 Oximetry EKG Findings - EKG Comments: EKG Findings:: Normal sinus rhythm with a rate of 61. VA 148. QRS 88. QT 422. QTC 424. Normal axis. Normal QRS. No acute ST change. Medical Decision Making - Medical Decision Making Patient reevaluated and is sleeping resting comfortably in bed. After being awoken, Patient again states that his pain is chronic. Patient states his pain is actually diffusely through his whole body. Patient states his doctor does give him pain medications however he does not know what they are. Patient requests narcotic pain medications. Patient also requests medications for his nerves. - Lab Data Result diagrams: 09/21/21 15:03 09/21/21 15:03 Lab Results 09/21/21 09/21/21 09/21/21 Range/Units 15:03 15:03 15:03 WBC 7.2 (3.8-10.6) k/uL RBC 4.43 (4.30-5.90) m/uL Hgb 13.2 (13.0-17.5) gm/dL Hct 40.7 (39.0-53.0) % MCV 91.9 (80.0-100.0) fL MCH 29.8 (25.0-35.0) pg MCHC 32.4 (31.0-37.0) g/dL RDW 13.1 (11.5-15.5) % Plt Count 335 (150-450) k/uL MPV 7.4 Neutrophils % 65 % Lymphocytes % 27 % Monocytes % 5 % Eosinophils % 1 % Basophils % 0 % Neutrophils # 4.6 (1.3-7.7) k/uL Lymphocytes # 1.9 (1.0-4.8) k/uL Monocytes # 0.4 (0-1.0) k/uL Eosinophils # 0.0 (0-0.7) k/uL Basophils # 0.0 (0-0.2) k/uL PT 10.1 (9.0-12.0) sec INR 0.9 (<1.2) APTT 22.6 (22.0-30.0) sec D-Dimer 0.18 (<0.60) mg/L FEU Sodium 130 L (137-145) mmol/L Potassium 4.7 (3.5-5.1) mmol/L Chloride 96 L (98-107) mmol/L Carbon Dioxide 24 (22-30) mmol/L Anion Gap 10 mmol/L BUN 12 (9-20) mg/dL Creatinine 0.71 (0.66-1.25) mg/dL Est GFR (CKD-EPI)AfAm >90 (>60 ml/min/1.73 sqM) Est GFR (CKD-EPI)NonAf >90 (>60 ml/min/1.73 sqM) Glucose 89 (74-99) mg/dL Calcium 10.0 (8.4-10.2) mg/dL Magnesium 1.5 L (1.6-2.3) mg/dL Total Bilirubin 0.3 (0.2-1.3) mg/dL AST 34 (17-59) U/L ALT 41 (4-49) U/L Alkaline Phosphatase 67 (38-126) U/L Troponin I (0.000-0.034) ng/mL Total Protein 7.1 (6.3-8.2) g/dL Albumin 4.5 (3.5-5.0) g/dL 09/21/21 Range/Units 15:03 WBC (3.8-10.6) k/uL RBC (4.30-5.90) m/uL Hgb (13.0-17.5) gm/dL Hct (39.0-53.0) % MCV (80.0-100.0) fL MCH (25.0-35.0) pg MCHC (31.0-37.0) g/dL RDW (11.5-15.5) % Plt Count (150-450) k/uL MPV Neutrophils % % Lymphocytes % % Monocytes % % Eosinophils % % Basophils % % Neutrophils # (1.3-7.7) k/uL Lymphocytes # (1.0-4.8) k/uL Monocytes # (0-1.0) k/uL Eosinophils # (0-0.7) k/uL Basophils # (0-0.2) k/uL PT (9.0-12.0) sec INR (<1.2) APTT (22.0-30.0) sec D-Dimer (<0.60) mg/L FEU Sodium (137-145) mmol/L Potassium (3.5-5.1) mmol/L Chloride (98-107) mmol/L Carbon Dioxide (22-30) mmol/L Anion Gap mmol/L BUN (9-20) mg/dL Creatinine (0.66-1.25) mg/dL Est GFR (CKD-EPI)AfAm (>60 ml/min/1.73 sqM) Est GFR (CKD-EPI)NonAf (>60 ml/min/1.73 sqM) Glucose (74-99) mg/dL Calcium (8.4-10.2) mg/dL Magnesium (1.6-2.3) mg/dL Total Bilirubin (0.2-1.3) mg/dL AST (17-59) U/L ALT (4-49) U/L Alkaline Phosphatase (38-126) U/L Troponin I <0.012 (0.000-0.034) ng/mL Total Protein (6.3-8.2) g/dL Albumin (3.5-5.0) g/dL - Radiology Data Radiology results: image reviewed (Chest x-ray shows no acute process) Disposition Clinical Impression: Chronic pain Disposition: HOME SELF-CARE Condition: Stable Instructions (If sedation given, give patient instructions): Chronic Pain (ED), Chest Pain (ED) Additional Instructions: Please have your primary care physician manage your chronic pain. Please follow-up with primary care physician in the next day or 2 for recheck. Return for change in symptoms, worsening symptoms, chest discomfort difficulty breathing, or any other concerns. Is patient prescribed a controlled substance at d/c from ED?: No Referrals: Mercedes Benitez MD [REFERRING] - 1-2 days Time of Disposition: 16:05
[2021-09-21 15:31] LABS: Basophils % (A) 0 %; Eosinophils % (A) 1 %; HCT 40.7 % (39.0-53.0); HGB 13.2 gm/dL (13.0-17.5); Lymphocytes # (A) 1.9 k/uL (1.0-4.8); Lymphocytes % (A) 27 %; MCH 29.8 pg (25.0-35.0); MCHC 32.4 g/dL (31.0-37.0); MCV 91.9 fL (80.0-100.0); Mean Platelet Volume 7.4; Monocytes # (A) 0.4 k/uL (0-1.0); Monocytes % (A) 5 %; Neutrophils # (A) 4.6 k/uL (1.3-7.7); Neutrophils % (A) 65 %; Platelet Count 335 k/uL (150-450); RBC 4.43 m/uL (4.30-5.90); RDW 13.1 % (11.5-15.5); WBC 7.2 k/uL (3.8-10.6)
[2021-09-21 15:36] LABS: ALT 41 U/L (4-49); AST 34 U/L (17-59); African American GFR (CKD) >90 (>60 ml/min/1.73 sqM); Albumin 4.5 g/dL (3.5-5.0); Alkaline Phosphatase 67 U/L (38-126); Anion Gap 10 mmol/L; Blood Urea Nitrogen 12 mg/dL (9-20); Carbon Dioxide 24 mmol/L (22-30); Chloride 96 mmol/L (98-107); Glucose 89 mg/dL (74-99); Magnesium 1.5 mg/dL (1.6-2.3); Non-African American GFR(CKD) >90 (>60 ml/min/1.73 sqM); Potassium 4.7 mmol/L (3.5-5.1); Sodium 130 mmol/L (137-145); Total Bilirubin 0.3 mg/dL (0.2-1.3); Total Protein 7.1 g/dL (6.3-8.2)
[2021-09-21] MEDS ORDERED: MAGNESIUM OXIDE 400 MG TAB PO STA (15:40)
[2021-09-21] MEDS ORDERED: SODIUM CHLORIDE 0.9% 500 ML 500 ML IV STA (15:40)
--- NOTE | 2021-09-21 15:43 | XR ---
EXAMINATION TYPE: XR chest 2V DATE OF EXAM: 09/21/2021 COMPARISON: 08/23/2021 HISTORY: Chest pain TECHNIQUE: 2 views FINDINGS: Heart and mediastinum are normal. Lungs are clear. Diaphragm is normal. Bony thorax is inta ct. IMPRESSION: Normal chest. No change.
[2021-09-21 15:49] LABS: INR 0.9 (<1.2); Partial Thromboplastin Time 22.6 sec (22.0-30.0); Prothrombin Time 10.1 sec (9.0-12.0)
[2021-09-21 16:22] VITALS: BP 160/89
== END 2021-09-21 17:44 | disposition home or self-care (01) ==
LOC: EC 13:36
DX: R07.89 Other chest pain (principal); G89.29 Other chronic pain; I25.10 Atherosclerotic heart disease of native coronary artery without angina pectoris; E78.5 Hyperlipidemia, unspecified; I10 Essential (primary) hypertension; I25.2 Old myocardial infarction; F41.9 Anxiety disorder, unspecified; F31.9 Bipolar disorder, unspecified; F17.200 Nicotine dependence, unspecified, uncomplicated; F12.90 Cannabis use, unspecified, uncomplicated; Z88.1 Allergy status to other antibiotic agents; Z88.5 Allergy status to narcotic agent; Z90.49 Acquired absence of other specified parts of digestive tract
CPT/HCPCS: 36415; 71046; 80053; 83735; 84484; 85025; 85379; 85610; 85730; 93005; 96360; 99285

== ENCOUNTER 2021-10-02 08:16 | Emergency (ER) | payer MEDICARE, OTHER ==
[2021-10-02] MEDS ORDERED: MORPHINE SULFATE 4 MG/ML SYRINGE IV STA (08:27)
[2021-10-02] MEDS ORDERED: SODIUM CHLORIDE 0.9% 1,000 ML IV STA (08:27)
[2021-10-02 08:28] VITALS: RESP 18
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
[2021-10-02 08:44] LABS: Basophils % (A) 0 %; Eosinophils # (A) 0.2 k/uL (0-0.7); Eosinophils % (A) 2 %; HCT 38.9 % (39.0-53.0); HGB 12.8 gm/dL (13.0-17.5); Lymphocytes # (A) 2.2 k/uL (1.0-4.8); Lymphocytes % (A) 25 %; MCH 29.8 pg (25.0-35.0); MCHC 32.8 g/dL (31.0-37.0); MCV 90.8 fL (80.0-100.0); Monocytes # (A) 0.4 k/uL (0-1.0); Monocytes % (A) 4 %; Neutrophils # (A) 5.8 k/uL (1.3-7.7); Neutrophils % (A) 65 %; Platelet Count 341 k/uL (150-450); RBC 4.28 m/uL (4.30-5.90); WBC 8.8 k/uL (3.8-10.6)
[2021-10-02 08:56] LABS: INR 0.9 (<1.2); Prothrombin Time 9.5 sec (9.0-12.0)
[2021-10-02 08:58] LABS: ALT 55 U/L (4-49); AST 57 U/L (17-59); African American GFR (CKD) >90 (>60 ml/min/1.73 sqM); Albumin 4.3 g/dL (3.5-5.0); Alkaline Phosphatase 78 U/L (38-126); Amylase 73 U/L (30-110); Anion Gap 9 mmol/L; Blood Urea Nitrogen 13 mg/dL (9-20); Calcium 9.8 mg/dL (8.4-10.2); Carbon Dioxide 23 mmol/L (22-30); Chloride 97 mmol/L (98-107); Glucose 112 mg/dL (74-99); Lipase 82 U/L (23-300); Non-African American GFR(CKD) >90 (>60 ml/min/1.73 sqM); Potassium 4.9 mmol/L (3.5-5.1); Sodium 129 mmol/L (137-145); Total Bilirubin 0.4 mg/dL (0.2-1.3); Total Protein 7.3 g/dL (6.3-8.2)
[2021-10-02 09:33] LABS: Appearance,Urine Clear (Clear); Bilirubin,Urine Negative (Negative); Blood,Urine Negative (Negative); Color,Urine Light Yellow; Glucose,Urine (UA) Negative (Negative); Ketones,Urine Negative (Negative); Leukocyte Esterase,Urine Negative (Negative); Nitrite,Urine Negative (Negative); Protein,Urine Negative (Negative); Specific Gravity,Urine 1.008 (1.001-1.035); Urobilinogen,Urine <2.0 mg/dL (<2.0)
[2021-10-02 09:44] VITALS: TEMP 98.5
--- NOTE | 2021-10-02 10:08 | CT ---
EXAMINATION TYPE: CT abdomen pelvis w con DATE OF EXAM: 10/02/2021 COMPARISON: CT 09/04/2021 HISTORY: Generalized abdominal pain. CT DLP: 807.9 mGycm Automated exposure control for dose reduction was used. TECHNIQUE: Helical acquisition of images from the lung bases through the pelvis have been completed. CONTRAST: Performed without Oral Contrast and with IV Contrast, patient injected with 100 mL of Isovue 300. FINDINGS: LUNG BASES: No significant abnormality is appreciated. AORTA: No significant abnormality is appreciated. LIVER/GB: No significant interval change is appreciated. PANCREAS: No significant abnormality is seen. SPLEEN: No significant abnormality is seen. ADRENALS: No significant abnormality is seen. KIDNEYS: No significant abnormality is seen. REPRODUCTIVE ORGANS: No significant abnormality is seen BOWEL: Retained fecal debris present throughout the distribution of the colon. FREE AIR: No Free Air visible. ASCITES: None visible. PELVIC ADENOPATHY: None visualized. RETROPERITONEAL ADENOPATHY: No Retroperitoneal Adenopathy visible. URINARY BLADDER: No significant abnormality is seen. OSSEOUS STRUCTURES: Degenerative disc changes are present at the lumbosacral junction. IMPRESSION: CORRELATE FOR FECAL STASIS.
[2021-10-02 11:06] VITALS: BP 165/70; PULSE 65
== END 2021-10-02 11:00 | disposition home or self-care (01) ==
LOC: EC 08:16
DX: R10.9 Unspecified abdominal pain (principal); M79.2 Neuralgia and neuritis, unspecified; F17.200 Nicotine dependence, unspecified, uncomplicated; I10 Essential (primary) hypertension; I25.10 Atherosclerotic heart disease of native coronary artery without angina pectoris; Z90.49 Acquired absence of other specified parts of digestive tract; Z88.6 Allergy status to analgesic agent; Z88.5 Allergy status to narcotic agent; Z79.899 Other long term (current) drug therapy
CPT/HCPCS: 36415; 80053; 82150; 83690; 85025; 85610; 85730; 81003; 74177; 99284; 96374; 96361; J2270; Q9967

== ENCOUNTER 2021-10-31 20:27 | Emergency (ER) | payer MEDICARE, OTHER ==
[2021-10-31 20:36] VITALS: RESP 16; TEMP 97.8
[2021-10-31] MEDS ORDERED: PANTOPRAZOLE 40 MG/10 ML VIAL IVP STA (20:40)
[2021-10-31] MEDS ORDERED: SODIUM CHLORIDE 0.9% 1,000 ML IV STA (20:40)
--- NOTE | 2021-10-31 20:44 | ED ---
General Adult HPI - General Chief complaint: Abdominal Pain Stated complaint: Abdominal Time Seen by Provider: 10/31/21 20:30 Source: patient, RN notes reviewed Mode of arrival: EMS Limitations: no limitations - History of Present Illness Initial comments: Patient is a 46-year-old male presenting to the emergency department with abdominal discomfort. Patient originally reported to EMS that he had chest pain. Question regarding this and showing patient the chest area patient denies having chest discomfort. Patient amiss discomfort is in the abdomen. Onset of symptoms was 4 days ago. Discomfort has been steady. Patient admits to drinking alcohol recently. Patient denies vomiting or diaphoresis. Patient has inconsistent history. - Related Data Home Medications Medication Instructions Recorded Confirmed busPIRone HCL [Buspar] 7.5 mg PO TID 03/14/21 10/02/21 Citalopram Hydrobromide [CeleXA] 20 mg PO DAILY 08/17/21 10/02/21 Loratadine [Claritin] 10 mg PO DAILY 08/17/21 10/02/21 Metoprolol Tartrate [Lopressor] 25 mg PO BID 08/17/21 10/02/21 Sucralfate [Carafate] 1 gm PO BID 08/17/21 10/02/21 Nitroglycerin Sl Tabs [Nitrostat] 0.4 mg SL Q5M PRN 08/23/21 10/02/21 Albuterol Sulfate [Ventolin HFA] 2 puff INHALATION RT-QID PRN 10/02/21 10/02/21 Carvedilol [Coreg] 6.25 mg PO BID-W/MEALS 10/02/21 10/02/21 Cyclobenzaprine [Flexeril] 10 mg PO BID 10/02/21 10/02/21 Losartan [Cozaar] 50 mg PO BID 10/02/21 10/02/21 Naproxen 500 mg PO BID-W/MEALS 10/02/21 10/02/21 OLANZapine 5 mg PO DAILY 10/02/21 10/02/21 Omeprazole 40 mg PO DAILY 10/02/21 10/02/21 Tamsulosin [Flomax] 0.4 mg PO AC-BRKFST 10/02/21 10/02/21 traZODone HCL 25 - 50 mg PO HS 10/02/21 10/02/21 Previous Rx's Medication Instructions Recorded Atorvastatin [Lipitor] 20 mg PO HS #30 tab 03/11/21 Folic Acid 1 mg PO DAILY@1200 #30 tab 08/22/21 Thiamine [Vitamin B-1] 100 mg PO DAILY@1200 #30 tab 08/22/21 Gabapentin [Neurontin] 300 mg PO BID PRN 3 Days #6 cap 10/02/21 Allergies Allergy/AdvReac Type Severity Reaction Status Date / Time tramadol Allergy Severe Itching Verified 10/02/21 10:50 hydromorphone [From Dilaudid] AdvReac Confusion Verified 10/02/21 10:50 Review of Systems ROS Statement: Those systems with pertinent positive or pertinent negative responses have been documented in the HPI. ROS Other: All systems not noted in ROS Statement are negative. Constitutional: Denies: fever Eyes: Denies: eye pain ENT: Denies: ear pain Respiratory: Denies: dyspnea Cardiovascular: Reports: as per HPI. Denies: chest pain Endocrine: Denies: fatigue Gastrointestinal: Reports: as per HPI, abdominal pain. Denies: vomiting Genitourinary: Denies: dysuria Musculoskeletal: Denies: back pain Skin: Denies: rash Neurological: Denies: weakness Past Medical History Past Medical History: Coronary Artery Disease (CAD), Chest Pain / Angina, Hyperlipidemia, Hypertension, Myocardial Infarction ([place]) Additional Past Medical History / Comment(s): Recent bronchitis Last Myocardial Infarction Date:: 2020 History of Any Multi-Drug Resistant Organisms: None Reported Past Surgical History: Cholecystectomy, Heart Catheterization Past Anesthesia/Blood Transfusion Reactions: No Reported Reaction Additional Past Anesthesia/Blood Transfusion Reaction / Comment(s): Pt has never had surgery. Past Psychological History: Anxiety, Bipolar, Depression, Panic Disorder Smoking Status: Current every day smoker Past Alcohol Use History: None Reported Past Drug Use History: Marijuana - Past Family History Father Family Medical History: Myocardial Infarction ([place]) Additional Family Medical History / Comment(s): Father of a [place] at the age of 41 yrs. Mother Family Medical History: Diabetes Mellitus General Exam Limitations: no limitations General appearance: alert, in no apparent distress Head exam: Present: normocephalic Eye exam: Present: normal appearance Neck exam: Present: normal inspection Respiratory exam: Present: normal lung sounds bilaterally. Absent: chest wall tenderness Cardiovascular Exam: Present: regular rate, normal rhythm Expanded Peripheral pulses: 2+: Radial (R), Radial (L), Posterior Tibialis (R), Posterior Tibialis (L) GI/Abdominal exam: Present: soft, tenderness (Mild to moderate epigastric tenderness to palpation), normal bowel sounds. Absent: distended, guarding, rebound, rigid, pulsatile mass Extremities exam: Present: normal inspection. Absent: pedal edema, calf tenderness Neurological exam: Present: alert Psychiatric exam: Present: normal affect, normal mood Skin exam: Present: normal color Course Vital Signs 10/31/21 20:30 Temperature 97.8 F Pulse Rate 90 Respiratory 16 Rate Blood Pressure 186/91 O2 Sat by Pulse 98 Oximetry EKG Findings - EKG Comments: EKG Findings:: Normal sinus rhythm with a rate of 79. ID 140. QRS 76. QT 360. QTC 412. Normal axis. Normal QRS. No acute ST change. Medical Decision Making - Medical Decision Making Patient reevaluated and resting comfortably in bed. Patient states his abdomen is feeling better. Patient is requesting narcotic pain medications for his chronic neck pain. Patient is again told that he needs to get this through his primary care physician. - Lab Data Result diagrams: 10/31/21 20:40 10/31/21 20:40 Lab Results 10/31/21 10/31/21 10/31/21 Range/Units 20:40 20:40 20:40 WBC 11.0 H (3.8-10.6) k/uL RBC 4.00 L (4.30-5.90) m/uL Hgb 11.9 L (13.0-17.5) gm/dL Hct 35.6 L (39.0-53.0) % MCV 89.2 (80.0-100.0) fL MCH 29.7 (25.0-35.0) pg MCHC 33.4 (31.0-37.0) g/dL RDW 13.1 (11.5-15.5) % Plt Count 355 (150-450) k/uL MPV 7.6 Neutrophils % 59 % Lymphocytes % 33 % Monocytes % 5 % Eosinophils % 0 % Basophils % 0 % Neutrophils # 6.5 (1.3-7.7) k/uL Lymphocytes # 3.7 (1.0-4.8) k/uL Monocytes # 0.5 (0-1.0) k/uL Eosinophils # 0.0 (0-0.7) k/uL Basophils # 0.0 (0-0.2) k/uL PT 9.7 (9.0-12.0) sec INR 0.9 (<1.2) APTT 22.4 (22.0-30.0) sec Sodium 135 L (137-145) mmol/L Potassium 4.1 (3.5-5.1) mmol/L Chloride 101 (98-107) mmol/L Carbon Dioxide 24 (22-30) mmol/L Anion Gap 10 mmol/L BUN 11 (9-20) mg/dL Creatinine 0.78 (0.66-1.25) mg/dL Est GFR (CKD-EPI)AfAm >90 (>60 ml/min/1.73 sqM) Est GFR (CKD-EPI)NonAf >90 (>60 ml/min/1.73 sqM) Glucose 94 (74-99) mg/dL Calcium 9.8 (8.4-10.2) mg/dL Total Bilirubin 0.4 (0.2-1.3) mg/dL AST 33 (17-59) U/L ALT 33 (4-49) U/L Alkaline Phosphatase 105 (38-126) U/L Troponin I (0.000-0.034) ng/mL Total Protein 7.3 (6.3-8.2) g/dL Albumin 4.4 (3.5-5.0) g/dL Amylase 61 (30-110) U/L Lipase 88 (23-300) U/L Urine Opiates Screen (NotDetected) Ur Oxycodone Screen (NotDetected) Urine Methadone Screen (NotDetected) Ur Propoxyphene Screen (NotDetected) Ur Barbiturates Screen (NotDetected) U Tricyclic Antidepress (NotDetected) Ur Phencyclidine Scrn (NotDetected) Ur Amphetamines Screen (NotDetected) U Methamphetamines Scrn (NotDetected) U Benzodiazepines Scrn (NotDetected) Urine Cocaine Screen (NotDetected) U Marijuana (THC) Screen (NotDetected) Serum Alcohol <10 mg/dL 10/31/21 10/31/21 Range/Units 20:40 20:42 WBC (3.8-10.6) k/uL RBC (4.30-5.90) m/uL Hgb (13.0-17.5) gm/dL Hct (39.0-53.0) % MCV (80.0-100.0) fL MCH (25.0-35.0) pg MCHC (31.0-37.0) g/dL RDW (11.5-15.5) % Plt Count (150-450) k/uL MPV Neutrophils % % Lymphocytes % % Monocytes % % Eosinophils % % Basophils % % Neutrophils # (1.3-7.7) k/uL Lymphocytes # (1.0-4.8) k/uL Monocytes # (0-1.0) k/uL Eosinophils # (0-0.7) k/uL Basophils # (0-0.2) k/uL PT (9.0-12.0) sec INR (<1.2) APTT (22.0-30.0) sec Sodium (137-145) mmol/L Potassium (3.5-5.1) mmol/L Chloride (98-107) mmol/L Carbon Dioxide (22-30) mmol/L Anion Gap mmol/L BUN (9-20) mg/dL Creatinine (0.66-1.25) mg/dL Est GFR (CKD-EPI)AfAm (>60 ml/min/1.73 sqM) Est GFR (CKD-EPI)NonAf (>60 ml/min/1.73 sqM) Glucose (74-99) mg/dL Calcium (8.4-10.2) mg/dL Total Bilirubin (0.2-1.3) mg/dL AST (17-59) U/L ALT (4-49) U/L Alkaline Phosphatase (38-126) U/L Troponin I <0.012 (0.000-0.034) ng/mL Total Protein (6.3-8.2) g/dL Albumin (3.5-5.0) g/dL Amylase (30-110) U/L Lipase (23-300) U/L Urine Opiates Screen Not Detected (NotDetected) Ur Oxycodone Screen Not Detected (NotDetected) Urine Methadone Screen Not Detected (NotDetected) Ur Propoxyphene Screen Not Detected (NotDetected) Ur Barbiturates Screen Not Detected (NotDetected) U Tricyclic Antidepress Not Detected (NotDetected) Ur Phencyclidine Scrn Not Detected (NotDetected) Ur Amphetamines Screen Not Detected (NotDetected) U Methamphetamines Scrn Not Detected (NotDetected) U Benzodiazepines Scrn Not Detected (NotDetected) Urine Cocaine Screen Not Detected (NotDetected) U Marijuana (THC) Screen Detected H (NotDetected) Serum Alcohol mg/dL - Radiology Data Radiology results: report reviewed (Computed tomography scan of abdomen pelvis shows no acute process) Disposition Clinical Impression: Abdominal pain, Chronic pain Disposition: HOME SELF-CARE Condition: Stable Instructions (If sedation given, give patient instructions): Abdominal Pain (ED), Chronic Pain (ED) Additional Instructions: Please follow-up with primary care physician in the next day or 2 for recheck. Return for increased pain, chest pain, not telling fluids, worsening symptoms or any other concerns. Your chronic pain will need to be managed by your primary care physician. Is patient prescribed a controlled substance at d/c from ED?: No Referrals: Padilla Arias [Primary Care Provider] - 1-2 days Time of Disposition: 22:26
[2021-10-31 21:16] LABS: Basophils % (A) 0 %; Eosinophils % (A) 0 %; HCT 35.6 % (39.0-53.0); HGB 11.9 gm/dL (13.0-17.5); Lymphocytes # (A) 3.7 k/uL (1.0-4.8); Lymphocytes % (A) 33 %; MCH 29.7 pg (25.0-35.0); MCHC 33.4 g/dL (31.0-37.0); MCV 89.2 fL (80.0-100.0); Mean Platelet Volume 7.6; Monocytes # (A) 0.5 k/uL (0-1.0); Monocytes % (A) 5 %; Neutrophils # (A) 6.5 k/uL (1.3-7.7); Neutrophils % (A) 59 %; Platelet Count 355 k/uL (150-450); RDW 13.1 % (11.5-15.5)
[2021-10-31 21:25] LABS: ALT 33 U/L (4-49); AST 33 U/L (17-59); African American GFR (CKD) >90 (>60 ml/min/1.73 sqM); Albumin 4.4 g/dL (3.5-5.0); Alcohol <10 mg/dL; Alkaline Phosphatase 105 U/L (38-126); Amylase 61 U/L (30-110); Anion Gap 10 mmol/L; Blood Urea Nitrogen 11 mg/dL (9-20); Calcium 9.8 mg/dL (8.4-10.2); Carbon Dioxide 24 mmol/L (22-30); Chloride 101 mmol/L (98-107); Glucose 94 mg/dL (74-99); INR 0.9 (<1.2); Lipase 88 U/L (23-300); Non-African American GFR(CKD) >90 (>60 ml/min/1.73 sqM); Partial Thromboplastin Time 22.4 sec (22.0-30.0); Potassium 4.1 mmol/L (3.5-5.1); Prothrombin Time 9.7 sec (9.0-12.0); Sodium 135 mmol/L (137-145); Total Bilirubin 0.4 mg/dL (0.2-1.3); Total Protein 7.3 g/dL (6.3-8.2)
[2021-10-31 21:44] LABS: Amphetamine Screen,Urine Not Detected (NotDetected); Barbiturate Screen,Urine Not Detected (NotDetected); Benzodiazepines Screen,Urine Not Detected (NotDetected); Cocaine Screen,Urine Not Detected (NotDetected); Methadone Screen, Urine Not Detected (NotDetected); Opiate Screen,Urine Not Detected (NotDetected); Oxycodone Screen, Urine Not Detected (NotDetected); Phencyclidine Screen,Urine Not Detected (NotDetected); Tricyclic Antidepressant,Urine Not Detected (NotDetected); Urn Cannabinoid Scrn Detected (NotDetected)
--- NOTE | 2021-10-31 22:05 | CT ---
EXAMINATION TYPE: CT abdomen pelvis w con DATE OF EXAM: 10/31/2021 COMPARISON: 10/02/2021 HISTORY: Abdominal pain CT DLP: 820.7 mGycm Automated exposure control for dose reduction was used. CONTRAST: Performed with IV Contrast, patient injected with 100 mL of Isovue 300. Lung bases are clear. There is no pleural effusion. Heart size is normal. There is no pericardial eff usion. Liver spleen stomach pancreas appear intact. Bilateral external dilated. There are clips from cholecy stectomy. There is no adrenal mass. Kidneys show satisfactory contrast opacification. There is no hydronephrosi s. Ureters are nondilated. There is no retroperitoneal adenopathy. Bladder distends smoothly. There i s no internal hernia. There is no free fluid in the pelvis. Delayed images show normal renal excretion. There is no mesenteric edema. There is no ascites or free air. There is no bowel obstruction. Abdomin al aorta is atheromatous. Lumbar vertebrae have normal alignment. There is no compression fracture. B kevin pelvis is intact. The hip joints are intact. The appendix appears normal. IMPRESSION: Negative CT scan of the abdomen and pelvis. No adverse change compared to old exam.
[2021-10-31 23:11] VITALS: BP 112/93; PULSE 79
== END 2021-10-31 22:20 | disposition home or self-care (01) ==
LOC: EC 20:27
DX: R10.9 Unspecified abdominal pain (principal); G89.29 Other chronic pain; I25.10 Atherosclerotic heart disease of native coronary artery without angina pectoris; E78.5 Hyperlipidemia, unspecified; I10 Essential (primary) hypertension; I25.2 Old myocardial infarction; F41.9 Anxiety disorder, unspecified; F43.10 Post-traumatic stress disorder, unspecified; F31.9 Bipolar disorder, unspecified; F17.200 Nicotine dependence, unspecified, uncomplicated; F12.90 Cannabis use, unspecified, uncomplicated; Z79.899 Other long term (current) drug therapy
CPT/HCPCS: 36415; 93005; 80053; 82150; 83690; 84484; 85025; 85610; 85730; 80306; 74177; 99285; 96374; 96361; G0480; C9113; Q9967; 80320; 96375

== ENCOUNTER 2021-11-03 22:24 | Emergency (ER) | payer MEDICARE, OTHER ==
[2021-11-03 22:28] VITALS: BP 183/82; PULSE 75; RESP 16; TEMP 98.1
--- NOTE | 2021-11-04 01:09 | XR ---
EXAMINATION TYPE: XR KUB DATE OF EXAM: 11/04/2021 COMPARISON: 10/24/2017 HISTORY: Abdominal pain TECHNIQUE: 2 views upright FINDINGS: Lung bases are clear. There is no pleural effusion. Bowel gas pattern is normal. There is n o sign of intestinal obstruction or pneumoperitoneum. Fecal pattern is normal. There is no evidence o f a mass. IMPRESSION: Nonacute abdomen. No adverse change.
[2021-11-04 01:35] LABS: Basophils % (A) 0 %; Eosinophils # (A) 0.2 k/uL (0-0.7); Eosinophils % (A) 2 %; HCT 34.6 % (39.0-53.0); HGB 11.9 gm/dL (13.0-17.5); Lymphocytes # (A) 3.2 k/uL (1.0-4.8); Lymphocytes % (A) 29 %; MCH 30.6 pg (25.0-35.0); MCHC 34.2 g/dL (31.0-37.0); MCV 89.3 fL (80.0-100.0); Monocytes # (A) 0.6 k/uL (0-1.0); Monocytes % (A) 6 %; Neutrophils # (A) 6.8 k/uL (1.3-7.7); Neutrophils % (A) 62 %; Platelet Count 330 k/uL (150-450); RBC 3.88 m/uL (4.30-5.90); RDW 13.2 % (11.5-15.5)
[2021-11-04 01:48] LABS: ALT 29 U/L (4-49); AST 51 U/L (17-59); African American GFR (CKD) >90 (>60 ml/min/1.73 sqM); Albumin 4.6 g/dL (3.5-5.0); Alkaline Phosphatase 72 U/L (38-126); Amylase 60 U/L (30-110); Anion Gap 7 mmol/L; Blood Urea Nitrogen 8 mg/dL (9-20); C Reactive Protein <0.5 mg/dL (<1.0); Carbon Dioxide 24 mmol/L (22-30); Chloride 101 mmol/L (98-107); Glucose 83 mg/dL (74-99); Lipase 74 U/L (23-300); Non-African American GFR(CKD) >90 (>60 ml/min/1.73 sqM); Sodium 132 mmol/L (137-145); Total Protein 7.9 g/dL (6.3-8.2)
[2021-11-04 01:52] LABS: Appearance,Urine Clear (Clear); Bilirubin,Urine Negative (Negative); Blood,Urine Negative (Negative); Color,Urine Light Yellow; Glucose,Urine (UA) Negative (Negative); Ketones,Urine Negative (Negative); Leukocyte Esterase,Urine Negative (Negative); Nitrite,Urine Negative (Negative); PH, Urine 7.5 (5.0-8.0); Protein,Urine Negative (Negative); Specific Gravity,Urine 1.004 (1.001-1.035); Urobilinogen,Urine <2.0 mg/dL (<2.0)
[2021-11-04 01:56] LABS: Potassium 5.4 mmol/L (3.5-5.1)
[2021-11-04] MEDS ORDERED: HYDROcodone/APAP 5-325MG 1 EACH TAB PO STA (02:08)
--- NOTE | 2021-11-04 03:50 | ED ---
General Adult HPI - General Chief complaint: Abdominal Pain Stated complaint: Abd Pain Time Seen by Provider: 11/04/21 00:53 Source: patient, EMS Mode of arrival: EMS Limitations: no limitations - Related Data Home Medications Medication Instructions Recorded Confirmed busPIRone HCL [Buspar] 7.5 mg PO TID 03/14/21 10/02/21 Citalopram Hydrobromide [CeleXA] 20 mg PO DAILY 08/17/21 10/02/21 Loratadine [Claritin] 10 mg PO DAILY 08/17/21 10/02/21 Metoprolol Tartrate [Lopressor] 25 mg PO BID 08/17/21 10/02/21 Sucralfate [Carafate] 1 gm PO BID 08/17/21 10/02/21 Nitroglycerin Sl Tabs [Nitrostat] 0.4 mg SL Q5M PRN 08/23/21 10/02/21 Albuterol Sulfate [Ventolin HFA] 2 puff INHALATION RT-QID PRN 10/02/21 10/02/21 Carvedilol [Coreg] 6.25 mg PO BID-W/MEALS 10/02/21 10/02/21 Cyclobenzaprine [Flexeril] 10 mg PO BID 10/02/21 10/02/21 Losartan [Cozaar] 50 mg PO BID 10/02/21 10/02/21 Naproxen 500 mg PO BID-W/MEALS 10/02/21 10/02/21 OLANZapine 5 mg PO DAILY 10/02/21 10/02/21 Omeprazole 40 mg PO DAILY 10/02/21 10/02/21 Tamsulosin [Flomax] 0.4 mg PO AC-BRKFST 10/02/21 10/02/21 traZODone HCL 25 - 50 mg PO HS 10/02/21 10/02/21 Previous Rx's Medication Instructions Recorded Atorvastatin [Lipitor] 20 mg PO HS #30 tab 03/11/21 Folic Acid 1 mg PO DAILY@1200 #30 tab 08/22/21 Thiamine [Vitamin B-1] 100 mg PO DAILY@1200 #30 tab 08/22/21 Gabapentin [Neurontin] 300 mg PO BID PRN 3 Days #6 cap 10/02/21 Allergies Allergy/AdvReac Type Severity Reaction Status Date / Time tramadol Allergy Severe Itching Verified 10/02/21 10:50 hydromorphone [From Dilaudid] AdvReac Confusion Verified 10/02/21 10:50 Review of Systems ROS Statement: Those systems with pertinent positive or pertinent negative responses have been documented in the HPI. ROS Other: All systems not noted in ROS Statement are negative. Past Medical History Past Medical History: Coronary Artery Disease (CAD), Chest Pain / Angina, Hyperlipidemia, Hypertension, Myocardial Infarction ([place]) Additional Past Medical History / Comment(s): Recent bronchitis Last Myocardial Infarction Date:: 2020 History of Any Multi-Drug Resistant Organisms: None Reported Past Surgical History: Cholecystectomy, Heart Catheterization Past Anesthesia/Blood Transfusion Reactions: No Reported Reaction Additional Past Anesthesia/Blood Transfusion Reaction / Comment(s): Pt has never had surgery. Past Psychological History: Anxiety, Bipolar, Depression, Panic Disorder Smoking Status: Current every day smoker Past Alcohol Use History: None Reported Past Drug Use History: Marijuana - Past Family History Father Family Medical History: Myocardial Infarction ([place]) Additional Family Medical History / Comment(s): Father of a [place] at the age of 41 yrs. Mother Family Medical History: Diabetes Mellitus General Exam Limitations: no limitations Course Vital Signs 11/03/21 22:25 Temperature 98.1 F Pulse Rate 75 Respiratory 16 Rate Blood Pressure 183/82 O2 Sat by Pulse 94 L Oximetry Medical Decision Making - Lab Data Result diagrams: 11/04/21 01:22 11/04/21 01:22 Lab Results 11/04/21 11/04/21 11/04/21 Range/Units 01: 01:22 01:38 WBC 11.0 H (3.8-10.6) k/uL RBC 3.88 L (4.30-5.90) m/uL Hgb 11.9 L (13.0-17.5) gm/dL Hct 34.6 L (39.0-53.0) % MCV 89.3 (80.0-100.0) fL MCH 30.6 (25.0-35.0) pg MCHC 34.2 (31.0-37.0) g/dL RDW 13.2 (11.5-15.5) % Plt Count 330 (150-450) k/uL MPV 8.0 Neutrophils % 62 % Lymphocytes % 29 % Monocytes % 6 % Eosinophils % 2 % Basophils % 0 % Neutrophils # 6.8 (1.3-7.7) k/uL Lymphocytes # 3.2 (1.0-4.8) k/uL Monocytes # 0.6 (0-1.0) k/uL Eosinophils # 0.2 (0-0.7) k/uL Basophils # 0.0 (0-0.2) k/uL Sodium 132 L (137-145) mmol/L Potassium 5.4 H (3.5-5.1) mmol/L Chloride 101 (98-107) mmol/L Carbon Dioxide 24 (22-30) mmol/L Anion Gap 7 mmol/L BUN 8 L (9-20) mg/dL Creatinine 0.63 L (0.66-1.25) mg/dL Est GFR (CKD-EPI)AfAm >90 (>60 ml/min/1.73 sqM) Est GFR (CKD-EPI)NonAf >90 (>60 ml/min/1.73 sqM) Glucose 83 (74-99) mg/dL Calcium 10.0 (8.4-10.2) mg/dL Total Bilirubin 1.0 (0.2-1.3) mg/dL AST 51 (17-59) U/L ALT 29 (4-49) U/L Alkaline Phosphatase 72 (38-126) U/L C-Reactive Protein <0.5 (<1.0) mg/dL Total Protein 7.9 (6.3-8.2) g/dL Albumin 4.6 (3.5-5.0) g/dL Amylase 60 (30-110) U/L Lipase 74 (23-300) U/L Urine Color Light Yellow Urine Appearance Clear (Clear) Urine pH 7.5 (5.0-8.0) Ur Specific [place] 1.004 (1.001-1.035) Urine Protein Negative (Negative) Urine Glucose (UA) Negative (Negative) Urine Ketones Negative (Negative) Urine Blood Negative (Negative) Urine Nitrite Negative (Negative) Urine Bilirubin Negative (Negative) Urine Urobilinogen <2.0 (<2.0) mg/dL Ur Leukocyte Esterase Negative (Negative) Disposition Clinical Impression: Chronic pain Disposition: HOME SELF-CARE Condition: Good Instructions (If sedation given, give patient instructions): Chronic Neck Pain ([place]) Is patient prescribed a controlled substance at d/c from ED?: No Referrals: Padilla Arias [Primary Care Provider] - 1-2 days Mallory Dominguez MD [STAFF PHYSICIAN] - 1-2 days
== END 2021-11-04 04:23 | disposition home or self-care (01) ==
LOC: EC 22:24
DX: G89.29 Other chronic pain (principal); R10.9 Unspecified abdominal pain; I10 Essential (primary) hypertension; I25.2 Old myocardial infarction; I25.10 Atherosclerotic heart disease of native coronary artery without angina pectoris; E78.5 Hyperlipidemia, unspecified; F31.9 Bipolar disorder, unspecified; F41.9 Anxiety disorder, unspecified; F17.200 Nicotine dependence, unspecified, uncomplicated; F12.90 Cannabis use, unspecified, uncomplicated; Z79.1 Long term (current) use of non-steroidal anti-inflammatories (NSAID); Z79.51 Long term (current) use of inhaled steroids; Z79.899 Other long term (current) drug therapy
CPT/HCPCS: 36415; 74018; 80053; 81003; 82150; 83690; 84484; 85025; 86140; 99284

== ENCOUNTER 2021-11-18 16:55 | Emergency (ER) | payer MEDICARE, OTHER ==
[2021-11-18 17:42] VITALS: BP 183/79; PULSE 85; RESP 16
[2021-11-18] MEDS ORDERED: MORPHINE SULFATE 4 MG/ML SYRINGE IV STA (18:28)
[2021-11-18] MEDS ORDERED: SODIUM CHLORIDE 0.9% 500 ML 500 ML IV STA (18:28)
[2021-11-18] MEDS ORDERED: ONDANSETRON 4 MG/2 ML VIAL IVP STA (18:28)
--- NOTE | 2021-11-18 18:48 | ED ---
General Adult HPI - General Chief complaint: Abdominal Pain Stated complaint: abd pain Time Seen by Provider: 11/18/21 18:06 Source: patient Mode of arrival: ambulatory Limitations: no limitations - History of Present Illness Initial comments: This 46-year-old male with past medical history of coronary artery disease, hyperlipidemia, hypertension, [place] presents emergency Department with abdominal pain 2 days. Patient states 2 days ago he began having upper epigastric pain. Patient states he has also experienced some shortness of breath on exertion, dull headache for the past 2 days as well. Patient describes his pain as aching in his upper epigastric area and states it is worse with movement. Patient states he did try taking Motrin for the pain. Patient states this pain is 10/10. Patient denies any chest pain, change in bowel or bladder, change in appetite, dizziness, hemoptysis, vomiting. - Related Data Home Medications Medication Instructions Recorded Confirmed busPIRone HCL [Buspar] 7.5 mg PO TID 03/14/21 11/18/21 Loratadine [Claritin] 10 mg PO DAILY 08/17/21 11/18/21 Metoprolol Tartrate [Lopressor] 25 mg PO BID 08/17/21 11/18/21 Nitroglycerin Sl Tabs [Nitrostat] 0.4 mg SL Q5M PRN 08/23/21 11/18/21 Albuterol Sulfate [Ventolin HFA] 2 puff INHALATION RT-QID PRN 10/02/21 11/18/21 Carvedilol [Coreg] 6.25 mg PO BID-W/MEALS 10/02/21 11/18/21 Losartan [Cozaar] 50 mg PO DAILY 10/02/21 11/18/21 Naproxen 500 mg PO BID-W/MEALS PRN 10/02/21 11/18/21 OLANZapine 5 mg PO HS 10/02/21 11/18/21 Omeprazole 40 mg PO DAILY 10/02/21 11/18/21 Tamsulosin [Flomax] 0.8 mg PO HS 10/02/21 11/18/21 Atorvastatin Calcium [Lipitor] 10 mg PO HS 11/18/21 11/18/21 Baclofen [Lioresal] 20 mg PO BID PRN 11/18/21 11/18/21 Citalopram Hydrobromide [CeleXA] 40 mg PO DAILY 11/18/21 11/18/21 Gabapentin [Neurontin] 300 mg PO TID 11/18/21 11/18/21 Melatonin 10 mg PO HS 11/18/21 11/18/21 haloperidoL [Haldol] 10 mg PO DAILY 11/18/21 11/18/21 hydrOXYzine HCL [Atarax] 50 mg PO TID PRN 11/18/21 11/18/21 Previous Rx's Medication Instructions Recorded Folic Acid 1 mg PO DAILY@1200 #30 tab 08/22/21 Allergies Allergy/AdvReac Type Severity Reaction Status Date / Time tramadol Allergy Severe Itching Verified 11/18/21 17:43 hydromorphone [From Dilaudid] AdvReac Confusion Verified 11/18/21 17:43 Review of Systems ROS Statement: Those systems with pertinent positive or pertinent negative responses have been documented in the HPI. ROS Other: All systems not noted in ROS Statement are negative. Past Medical History Past Medical History: Coronary Artery Disease (CAD), Chest Pain / Angina, Hyperlipidemia, Hypertension, Myocardial Infarction ([place]) Additional Past Medical History / Comment(s): Recent bronchitis Last Myocardial Infarction Date:: 2020 History of Any Multi-Drug Resistant Organisms: None Reported Past Surgical History: Cholecystectomy, Heart Catheterization Past Anesthesia/Blood Transfusion Reactions: No Reported Reaction Additional Past Anesthesia/Blood Transfusion Reaction / Comment(s): Pt has never had surgery. Past Psychological History: Anxiety, Bipolar, Depression, Panic Disorder Smoking Status: Current every day smoker Past Alcohol Use History: None Reported Past Drug Use History: Marijuana - Past Family History Father Family Medical History: Myocardial Infarction ([place]) Additional Family Medical History / Comment(s): Father of a [place] at the age o f 41 yrs. Mother Family Medical History: Diabetes Mellitus General Exam Limitations: no limitations General appearance: alert, in no apparent distress Head exam: Present: atraumatic, normocephalic Eye exam: Present: PERRL, EOMI Pupils: Present: normal accommodation ENT exam: Present: mucous membranes moist Neck exam: Present: full ROM Respiratory exam: Present: normal lung sounds bilaterally. Absent: respiratory distress, wheezes, rales, rhonchi, stridor Cardiovascular Exam: Present: regular rate, normal rhythm, normal heart sounds. Absent: systolic murmur, diastolic murmur, rubs, gallop, clicks GI/Abdominal exam: Present: soft, tenderness (Mild epigastric tenderness to palpation), normal bowel sounds. Absent: distended, guarding, rebound, rigid Extremities exam: Present: full ROM. Absent: tenderness, calf tenderness Back exam: Present: full ROM. Absent: tenderness, CVA tenderness (R), CVA tenderness (L), paraspinal tenderness, vertebral tenderness Neurological exam: Present: alert, oriented X3, CN II-XII intact Psychiatric exam: Present: normal affect, normal mood Skin exam: Present: warm, dry, intact, normal color. Absent: rash Course Vital Signs 11/18/21 17:40 Pulse Rate 85 Respiratory 16 Rate Blood Pressure 183/79 O2 Sat by Pulse 98 Oximetry EKG Findings - EKG Comments: EKG Findings:: EKG impression: Sinus rhythm. Ventricular rate 63 bpm. MO interval 139. QRS duration 87. QT/QTc 380/387 Medical Decision Making - Medical Decision Making This 38-year-old male presents emergency Department with upper epigastric pain x2 days. Labs unremarkable. Chest x-ray unremarkable. EKG with flipped T waves in aVL, patient advised follow-up with cardiology, no flipped T waves in contiguous leads troponin negative. CT abdomen and pelvis without any acute abnormalities. After receiving pain medications and fluids, patient states he still just has some mild upper epigastric pain, however, it has decreased from when he first came in. GI cocktail was given and patient was to follow-up with primary care in next 24-48 hours. Strict return precautions were given. Patient verbally agreed to plan. Patient sent home in stable condition. Case discussed with my attending, . - Lab Data Result diagrams: 11/18/21 19:05 11/18/21 19:05 Lab Results 11/18/21 11/18/21 11/18/21 Range/Units 19:05 19:05 19:05 WBC 8.4 (3.8-10.6) k/uL RBC 4.29 L (4.30-5.90) m/uL Hgb 12.7 L (13.0-17.5) gm/dL Hct 38.6 L (39.0-53.0) % MCV 89.9 (80.0-100.0) fL MCH 29.6 (25.0-35.0) pg MCHC 32.9 (31.0-37.0) g/dL RDW 13.5 (11.5-15.5) % Plt Count 327 (150-450) k/uL MPV 7.3 Neutrophils % 66 % Lymphocytes % 24 % Monocytes % 4 % Eosinophils % 2 % Basophils % 1 % Neutrophils # 5.6 (1.3-7.7) k/uL Lymphocytes # 2.0 (1.0-4.8) k/uL Monocytes # 0.3 (0-1.0) k/uL Eosinophils # 0.2 (0-0.7) k/uL Basophils # 0.0 (0-0.2) k/uL PT 10.2 (9.0-12.0) sec INR 0.9 (<1.2) APTT 22.8 (22.0-30.0) sec Sodium 137 (137-145) mmol/L Potassium 4.5 (3.5-5.1) mmol/L Chloride 105 (98-107) mmol/L Carbon Dioxide 24 (22-30) mmol/L Anion Gap 8 mmol/L BUN 11 (9-20) mg/dL Creatinine 0.72 (0.66-1.25) mg/dL Est GFR (CKD-EPI)AfAm >90 (>60 ml/min/1.73 sqM) Est GFR (CKD-EPI)NonAf >90 (>60 ml/min/1.73 sqM) Glucose 95 (74-99) mg/dL Plasma Lactic Acid Javier (0.7-2.0) mmol/L Calcium 9.9 (8.4-10.2) mg/dL Total Bilirubin 0.4 (0.2-1.3) mg/dL AST 38 (17-59) U/L ALT 27 (4-49) U/L Alkaline Phosphatase 91 (38-126) U/L Troponin I (0.000-0.034) ng/mL Total Protein 7.3 (6.3-8.2) g/dL Albumin 4.4 (3.5-5.0) g/dL Amylase 60 (30-110) U/L Lipase 66 (23-300) U/L Urine Color Urine Appearance (Clear) Urine pH (5.0-8.0) Ur Specific [place] (1.001-1.035) Urine Protein (Negative) Urine Glucose (UA) (Negative) Urine Ketones (Negative) Urine Blood (Negative) Urine Nitrite (Negative) Urine Bilirubin (Negative) Urine Urobilinogen (<2.0) mg/dL Ur Leukocyte Esterase (Negative) 11/18/21 11/18/21 11/18/21 Range/Units 19:05 19:05 19:13 WBC (3.8-10.6) k/uL RBC (4.30-5.90) m/uL Hgb (13.0-17.5) gm/dL Hct (39.0-53.0) % MCV (80.0-100.0) fL MCH (25.0-35.0) pg MCHC (31.0-37.0) g/dL RDW (11.5-15.5) % Plt Count (150-450) k/uL MPV Neutrophils % % Lymphocytes % % Monocytes % % Eosinophils % % Basophils % % Neutrophils # (1.3-7.7) k/uL Lymphocytes # (1.0-4.8) k/uL Monocytes # (0-1.0) k/uL Eosinophils # (0-0.7) k/uL Basophils # (0-0.2) k/uL PT (9.0-12.0) sec INR (<1.2) APTT (22.0-30.0) sec Sodium (137-145) mmol/L Potassium (3.5-5.1) mmol/L Chloride (98-107) mmol/L Carbon Dioxide (22-30) mmol/L Anion Gap mmol/L BUN (9-20) mg/dL Creatinine (0.66-1.25) mg/dL Est GFR (CKD-EPI)AfAm (>60 ml/min/1.73 sqM) Est GFR (CKD-EPI)NonAf (>60 ml/min/1.73 sqM) Glucose (74-99) mg/dL Plasma Lactic Acid Javier 1.0 (0.7-2.0) mmol/L Calcium (8.4-10.2) mg/dL Total Bilirubin (0.2-1.3) mg/dL AST (17-59) U/L ALT (4-49) U/L Alkaline Phosphatase (38-126) U/L Troponin I <0.012 (0.000-0.034) ng/mL Total Protein (6.3-8.2) g/dL Albumin (3.5-5.0) g/dL Amylase (30-110) U/L Lipase (23-300) U/L Urine Color Yellow Urine Appearance Clear (Clear) Urine pH 7.0 (5.0-8.0) Ur Specific [place] 1.019 (1.001-1.035) Urine Protein Negative (Negative) Urine Glucose (UA) Negative (Negative) Urine Ketones Negative (Negative) Urine Blood Negative (Negative) Urine Nitrite Negative (Negative) Urine Bilirubin Negative (Negative) Urine Urobilinogen <2.0 (<2.0) mg/dL Ur Leukocyte Esterase Negative (Negative) Disposition Clinical Impression: Abdominal pain Disposition: HOME SELF-CARE Condition: Stable Instructions (If sedation given, give patient instructions): Abdominal Pain (ED) Additional Instructions: Please return to the emergency department any concerning, or worsening symptoms. Please follow up with cardiology and primary care in next 24-48 hours. Is patient prescribed a controlled substance at d/c from ED?: No Referrals: Padilla Arias [Primary Care Provider] - 1-2 days Time of Disposition: 20:35
[2021-11-18 19:15] LABS: Basophils % (A) 1 %; Eosinophils # (A) 0.2 k/uL (0-0.7); Eosinophils % (A) 2 %; HCT 38.6 % (39.0-53.0); HGB 12.7 gm/dL (13.0-17.5); Lymphocytes % (A) 24 %; MCH 29.6 pg (25.0-35.0); MCHC 32.9 g/dL (31.0-37.0); MCV 89.9 fL (80.0-100.0); Mean Platelet Volume 7.3; Monocytes # (A) 0.3 k/uL (0-1.0); Monocytes % (A) 4 %; Neutrophils # (A) 5.6 k/uL (1.3-7.7); Neutrophils % (A) 66 %; Platelet Count 327 k/uL (150-450); RBC 4.29 m/uL (4.30-5.90); RDW 13.5 % (11.5-15.5); WBC 8.4 k/uL (3.8-10.6)
[2021-11-18 19:24] LABS: ALT 27 U/L (4-49); AST 38 U/L (17-59); African American GFR (CKD) >90 (>60 ml/min/1.73 sqM); Albumin 4.4 g/dL (3.5-5.0); Alkaline Phosphatase 91 U/L (38-126); Amylase 60 U/L (30-110); Anion Gap 8 mmol/L; Blood Urea Nitrogen 11 mg/dL (9-20); Calcium 9.9 mg/dL (8.4-10.2); Carbon Dioxide 24 mmol/L (22-30); Chloride 105 mmol/L (98-107); Glucose 95 mg/dL (74-99); Lipase 66 U/L (23-300); Non-African American GFR(CKD) >90 (>60 ml/min/1.73 sqM); Potassium 4.5 mmol/L (3.5-5.1); Sodium 137 mmol/L (137-145); Total Bilirubin 0.4 mg/dL (0.2-1.3); Total Protein 7.3 g/dL (6.3-8.2)
[2021-11-18 19:25] LABS: INR 0.9 (<1.2); Partial Thromboplastin Time 22.8 sec (22.0-30.0); Prothrombin Time 10.2 sec (9.0-12.0)
[2021-11-18 19:25] LABS: Appearance,Urine Clear (Clear); Bilirubin,Urine Negative (Negative); Blood,Urine Negative (Negative); Color,Urine Yellow; Glucose,Urine (UA) Negative (Negative); Ketones,Urine Negative (Negative); Leukocyte Esterase,Urine Negative (Negative); Nitrite,Urine Negative (Negative); Protein,Urine Negative (Negative); Specific Gravity,Urine 1.019 (1.001-1.035); Urobilinogen,Urine <2.0 mg/dL (<2.0)
--- NOTE | 2021-11-18 19:52 | CT ---
EXAMINATION TYPE: CT abdomen pelvis w con CT DLP: 764.4 mGycm, Automated exposure control for dose reduction was used. DATE OF EXAM: 11/18/2021 7:32 PM COMPARISON: None.. CT abdomen pelvis most recent from . CLINICAL INDICATION:Male, 46 years old with history of abdominal pain; TECHNIQUE: Standard CT of the abdomen and pelvis following the administration of 100 cc of Isovue 3 00 IV contrast material. Coronal and sagittal reformats were performed. FINDINGS: LOWER CHEST: Unremarkable ABDOMEN LIVER: Unremarkable GALLBLADDER AND BILE DUCTS: The gallbladder is surgically absent. PANCREAS: Unremarkable. SPLEEN: Unremarkable. ADRENAL GLANDS: Unremarkable. KIDNEYS AND URETERS: No evidence of hydronephrosis or renal calculus. The ureters are unremarkable. PELVIS BLADDER: Unremarkable REPRODUCTIVE: Unremarkable. ABDOMEN & PELVIS STOMACH AND BOWEL: No evidence of bowel obstruction. PERITONEUM: No evidence of pneumoperitoneum or free fluid. VASCULATURE: Mild atherosclerotic calcifications are present throughout the abdominal aorta and its b ranches. MUSCULOSKELETAL: No acute osseous abnormalities LYMPH NODES: No gross evidence for lymphadenopathy. SOFT TISSUE/ABDOMINAL WALL: Unremarkable IMPRESSION: 1. No acute intra-abdominal process
--- NOTE | 2021-11-18 19:53 | XR ---
EXAMINATION TYPE: XR chest 2V DATE OF EXAM: 11/18/2021 7:22 PM COMPARISON:Chest radiographs from 09/21/2021 TECHNIQUE: Frontal and lateral views of the chest. CLINICAL INDICATION:Male, 46 years old with history of abdominal pain; FINDINGS: Lungs/Pleura: There is no evidence of pleural effusion, focal consolidation, or pneumothorax. Pulmonary vascularity: Unremarkable. Heart/mediastinum: Cardiomediastinal silhouette is unremarkable. Musculoskeletal: No acute osseous pathology. IMPRESSION: No acute cardiopulmonary disease/process.
[2021-11-18] MEDS ORDERED: MAG HYDROX/AL HYDROX/SIMETH 30 ML, HYOSCYAMINE ELIXIR 10 ML, LIDOCAINE VISCOUS 2% 10 ML PO STA ×3 (20:37)
== END 2021-11-18 21:13 | disposition home or self-care (01) ==
LOC: EC 16:55
DX: R10.13 Epigastric pain (principal); I25.10 Atherosclerotic heart disease of native coronary artery without angina pectoris; E78.5 Hyperlipidemia, unspecified; I10 Essential (primary) hypertension; I25.2 Old myocardial infarction; F41.9 Anxiety disorder, unspecified; F31.9 Bipolar disorder, unspecified; F17.200 Nicotine dependence, unspecified, uncomplicated; F12.90 Cannabis use, unspecified, uncomplicated; Z88.1 Allergy status to other antibiotic agents; Z88.5 Allergy status to narcotic agent; Z90.49 Acquired absence of other specified parts of digestive tract
CPT/HCPCS: 99285; 96374; 96375; 96361 ×2; 36415; 93005; 80053; 82150; 83605; 83690; 84484; 85025; 85610; 85730; 81003; 71046; 74177; J2270; J2405; Q9967

== ENCOUNTER 2021-11-25 11:41 | Emergency (ER) | payer MEDICARE, OTHER ==
[2021-11-25] MEDS ORDERED: MORPHINE SULFATE 4 MG/ML SYRINGE IV STA (12:27)
[2021-11-25] MEDS ORDERED: SODIUM CHLORIDE 0.9% 1,000 ML IV STA (12:27)
[2021-11-25] MEDS ORDERED: diphenhydrAMINE 50 MG/ML 1 ML VIAL IVP STA (12:27)
[2021-11-25] MEDS ORDERED: ASPIRIN 81 MG PO STA (12:27)
[2021-11-25] MEDS ORDERED: METOCLOPRAMIDE 5 MG/ML 2 ML VIAL IVP STA (12:27)
[2021-11-25] MEDS ORDERED: MAG HYDROX/AL HYDROX/SIMETH 30 ML CUP PO STA (12:28)
[2021-11-25] MEDS ORDERED: LIDOCAINE VISCOUS 2% 15 ML CUP MUCOUS MEM ONE (12:28)
[2021-11-25 12:45] LABS: Basophils % (A) 0 %; Eosinophils # (A) 0.1 k/uL (0-0.7); Eosinophils % (A) 2 %; HCT 39.1 % (39.0-53.0); HGB 13.1 gm/dL (13.0-17.5); Lymphocytes # (A) 1.9 k/uL (1.0-4.8); Lymphocytes % (A) 30 %; MCH 30.1 pg (25.0-35.0); MCHC 33.6 g/dL (31.0-37.0); MCV 89.7 fL (80.0-100.0); Mean Platelet Volume 7.6; Monocytes # (A) 0.4 k/uL (0-1.0); Monocytes % (A) 6 %; Neutrophils # (A) 3.9 k/uL (1.3-7.7); Neutrophils % (A) 60 %; Platelet Count 346 k/uL (150-450); RBC 4.36 m/uL (4.30-5.90); RDW 13.6 % (11.5-15.5); WBC 6.5 k/uL (3.8-10.6)
[2021-11-25 13:03] LABS: ALT 37 U/L (4-49); AST 39 U/L (17-59); African American GFR (CKD) >90 (>60 ml/min/1.73 sqM); Albumin 4.3 g/dL (3.5-5.0); Alkaline Phosphatase 93 U/L (38-126); Amylase 50 U/L (30-110); Anion Gap 10 mmol/L; Blood Urea Nitrogen 12 mg/dL (9-20); Calcium 9.7 mg/dL (8.4-10.2); Carbon Dioxide 21 mmol/L (22-30); Chloride 97 mmol/L (98-107); Glucose 108 mg/dL (74-99); Lipase 41 U/L (23-300); Magnesium 1.5 mg/dL (1.6-2.3); Non-African American GFR(CKD) >90 (>60 ml/min/1.73 sqM); Potassium 4.7 mmol/L (3.5-5.1); Sodium 128 mmol/L (137-145); Total Bilirubin 0.4 mg/dL (0.2-1.3); Total Protein 7.1 g/dL (6.3-8.2)
--- NOTE | 2021-11-25 13:03 | XR ---
EXAMINATION TYPE: XR chest 2V DATE OF EXAM: 11/25/2021 COMPARISON: Chest x-ray one week ago HISTORY: Chest pain today. TECHNIQUE: Frontal and lateral views of the chest are obtained. FINDINGS: Some hyperexpanded right lung redemonstrated. There is chronic parenchymal change without s uspicious focal air space opacity, pleural effusion, or pneumothorax seen. The cardiac silhouette si ze remains within normal limits. The osseous structures are intact. IMPRESSION: No acute cardiopulmonary process. No significant change from prior.
[2021-11-25] MEDS ORDERED: MAGNESIUM SULFATE-D5W PMX 1 GM in DEXTROSE/WATER 1 100ML.BAG IVPB ONE (13:05)
[2021-11-25 13:12] LABS: INR 0.9 (<1.2); Partial Thromboplastin Time 22.8 sec (22.0-30.0); Prothrombin Time 10.4 sec (9.0-12.0)
--- NOTE | 2021-11-25 13:15 | CT ---
EXAMINATION TYPE: CT abdomen pelvis w con DATE OF EXAM: 11/25/2021 INDICATION: mid abd pain CT DLP: 799.3 mGy.cm Automated Exposure Control for Dose Reduction was Utilized. TECHNIQUE AND CONTRAST: Multiplanar CT scan of the abdomen and pelvis is performed with IV Contrast, patient injected with 10 0 mL of Isovue 300. COMPARISON: CT dated 11/18/2021 FINDINGS: Unremarkable nondistended stomach, duodenum and small bowel. Significant fecal loading of the colon c onsistent with constipation. Scattered uncomplicated chronic diverticulosis. No evidence for acute di verticulitis. No definite hepatic focal lesion. Previous cholecystectomy. No intra or extrahepatic biliary tree dil atation. Unremarkable spleen, pancreas, adrenals and kidneys. Extensive aortoiliac atherosclerotic ca lcifications, more than expected for the patient's age. Unremarkable urinary bladder, prostate and seminal vesicles. Small fat-containing umbilical hernia. N o suspicious lymphadenopathy or sizable ascites. No aggressive bone lesion. IMPRESSION: Significant fecal loading of the colon, please correlate for constipation. Otherwise no definite acut e abdominal or pelvic abnormality identified. Extensive aortoiliac atherosclerotic calcifications without definite arterial occlusion, more than ex pected for the patient's age, for further workup.
[2021-11-25 13:59] LABS: Appearance,Urine Clear (Clear); Bilirubin,Urine Negative (Negative); Blood,Urine Negative (Negative); Color,Urine Yellow; Glucose,Urine (UA) Negative (Negative); Ketones,Urine Negative (Negative); Leukocyte Esterase,Urine Negative (Negative); Nitrite,Urine Negative (Negative); Protein,Urine Negative (Negative); Specific Gravity,Urine 1.018 (1.001-1.035); Urobilinogen,Urine <2.0 mg/dL (<2.0)
--- NOTE | 2021-11-25 14:00 | ED ---
General Adult HPI - General Chief complaint: Chest Pain Stated complaint: Chest Pain Time Seen by Provider: 11/25/21 12:14 Source: patient, RN notes reviewed, old records reviewed Mode of arrival: EMS Limitations: no limitations - History of Present Illness Initial comments: Patient is a 46-year-old male who presents emergency Department complaining of chronic abdominal pain. He has been in multiple times over the last week or so. I evaluated him last week. He is having his typical nonspecific abdominal pain that seems to be more isolated to the right side of his abdomen. This concern, as he states it is always there. Denies any nausea or vomiting. Denies any diarrhea. There is a shortness of breath but does endorse some chest discomfort as well as been there for multiple days. States is substernal, but is having difficult time describing what it feels like. States is chronic and not acute. States is from a past fall months ago. Denies any other acute complaints at this time. Presents as he states it does not seem to be improving. Patient was evaluated when he was placed in a room. - Related Data Home Medications Medication Instructions Recorded Confirmed busPIRone HCL [Buspar] 7.5 mg PO TID 03/14/21 11/25/21 Loratadine [Claritin] 10 mg PO DAILY 08/17/21 11/25/21 Metoprolol Tartrate [Lopressor] 25 mg PO BID 08/17/21 11/25/21 Nitroglycerin Sl Tabs [Nitrostat] 0.4 mg SL Q5M PRN 08/23/21 11/25/21 Albuterol Sulfate [Ventolin HFA] 2 puff INHALATION RT-QID PRN 10/02/21 11/25/21 Carvedilol [Coreg] 6.25 mg PO BID-W/MEALS 10/02/21 11/25/21 Losartan [Cozaar] 50 mg PO DAILY 10/02/21 11/25/21 Naproxen 500 mg PO BID-W/MEALS PRN 10/02/21 11/25/21 OLANZapine 5 mg PO HS 10/02/21 11/25/21 Omeprazole 40 mg PO DAILY 10/02/21 11/25/21 Tamsulosin [Flomax] 0.8 mg PO HS 10/02/21 11/25/21 Atorvastatin Calcium [Lipitor] 10 mg PO HS 11/18/21 11/25/21 Baclofen [Lioresal] 20 mg PO BID PRN 11/18/21 11/25/21 Citalopram Hydrobromide [CeleXA] 40 mg PO DAILY 11/18/21 11/25/21 Gabapentin [Neurontin] 300 mg PO TID 11/18/21 11/25/21 Melatonin 10 mg PO HS 11/18/21 11/25/21 haloperidoL [Haldol] 10 mg PO DAILY 11/18/21 11/25/21 hydrOXYzine HCL [Atarax] 50 mg PO TID PRN 11/18/21 11/25/21 Previous Rx's Medication Instructions Recorded Folic Acid 1 mg PO DAILY@1200 #30 tab 08/22/21 Famotidine [Pepcid] 20 mg PO DAILY 7 Days #7 tablet 11/21/21 Ondansetron Odt [Zofran Odt] 4 mg PO Q8HR PRN #10 tab 11/22/21 Docusate [Colace] 100 mg PO BID PRN 7 Days #14 11/25/21 capsule Polyethylene Glycol 3350 [Miralax] 17 gm PO DAILY #527 gm 11/25/21 Allergies Allergy/AdvReac Type Severity Reaction Status Date / Time tramadol Allergy Severe Itching Verified 11/25/21 14:05 hydromorphone [From Dilaudid] AdvReac Confusion Verified 11/25/21 14:05 Review of Systems ROS Statement: Those systems with pertinent positive or pertinent negative responses have been documented in the HPI. Review of Systems: CONST: Denies fever EYES: Denies blurry vision ENT: Denies nasal congestion C/V: Endorses chronic chest pain RESP: Denies shortness of breath GI: Endorses chronic abdominal pain : Denies dysuria SKIN: Denies rash. MSK: Denies joint pain. NEURO: Denies headache ROS Other: All systems not noted in ROS Statement are negative. Past Medical History Past Medical History: Coronary Artery Disease (CAD), Chest Pain / Angina, Hyperlipidemia, Hypertension, Myocardial Infarction (IA) Additional Past Medical History / Comment(s): Recent bronchitis Last Myocardial Infarction Date:: 2020 History of Any Multi-Drug Resistant Organisms: None Reported Past Surgical History: Cholecystectomy, Heart Catheterization Past Anesthesia/Blood Transfusion Reactions: No Reported Reaction Additional Past Anesthesia/Blood Transfusion Reaction / Comment(s): Pt has never had surgery. Past Psychological History: Anxiety, Bipolar, Depression, Panic Disorder Smoking Status: Current every day smoker Past Alcohol Use History: None Reported Past Drug Use History: Marijuana - Past Family History Father Family Medical History: Myocardial Infarction (IA) Additional Family Medical History / Comment(s): Father of a IA at the age of 41 yrs. Mother Family Medical History: Diabetes Mellitus General Exam - General Exam Comments Initial Comments: General: Appears in no acute distress. HEAD: Normal with no signs of head trauma. EYES: PERRLA, EOMI, conjunctiva normal, no discharge. ENT: Hearing grossly intact, normal oropharynx. RESPIRATORY: Clear breath sounds bilaterally. No wheezes, rales, or rhonchi. C/V: Regular rate and rhythm. S1 and S2 auscultated, no edema, peripheral pulses 2+ and intact throughout ABD: Abdomen is soft, nondistended. Patient is mildly tender to palpation mostly in the epigastric region. EXT: Normal range of motion, no obvious deformity SKIN: No rashes or lesions observed on exposed skin. NEURO: Alert and oriented 4. No focal deficits. Limitations: no limitations Course Vital Signs 11/25/21 11/25/21 11/25/21 12:18 13:28 15:10 Temperature 98.2 F 98.2 F 98.0 F Pulse Rate 68 68 62 Respiratory 18 18 16 Rate Blood Pressure 134/68 159/80 150/77 O2 Sat by Pulse 98 98 98 Oximetry Medical Decision Making - Medical Decision Making Based on the patient's presentation and physical exam, I do believe that he is having his chronic abdominal pain as well as chronic chest pain that he complains of, however this is his fourth or fifth visit within the last few weeks. We will obtain a slightly more extensive workup at this time. We will obtain CT abdomen and pelvis as well. He was in agreement this plan. He'll be provided with analgesia, IV fluids, as well as a GI cocktail. He'll be given an aspirin. EKG showed no signs of acute ischemia. No change from prior EKGs. Patient's chest x-ray revealed no acute cardio probably process. CT abdomen and pelvis revealed findings concerning for constipation, however no other acute process. Laboratory studies were remarkable for mild hyponatremia of 128, and patient is receiving IV fluids. Troponin is negative. Magnesium is low to 1.5 and will be replenished. Urinalysis within normal limits. Remainder the labs are unremarkable. I reviewed the patient's x-ray studies and imaging with him. I do believe it is safe for him to be discharged home, as his symptoms are chronic. He was in agreement this plan. He'll be provided with stool softeners for his constipation. I will also write him a prescription for MiraLAX. Patient was in agreement this plan. Pain is improved on discharge. I will provide the patient with a prescription for MiraLAX, stool softeners. I instructed the patient to follow up with their PCP in the next 3 days. I provided contact information for follow up with gastroenterology. I explained that the patient should return to the emergency department if they experience any worsening symptoms. [facility]rict [facility] The patient expressed understanding of these instructions. I answered all questions that the patient had. The patient was discharged home in good Condition with their prescriptions and follow up information. - Lab Data Result diagrams: 11/25/21 12:32 11/25/21 12:32 Lab Results 11/25/21 11/25/21 11/25/21 Range/Units 12:32 12:32 12:32 WBC 6.5 (3.8-10.6) k/uL RBC 4.36 (4.30-5.90) m/uL Hgb 13.1 (13.0-17.5) gm/dL Hct 39.1 (39.0-53.0) % MCV 89.7 (80.0-100.0) fL MCH 30.1 (25.0-35.0) pg MCHC 33.6 (31.0-37.0) g/dL RDW 13.6 (11.5-15.5) % Plt Count 346 (150-450) k/uL MPV 7.6 Neutrophils % 60 % Lymphocytes % 30 % Monocytes % 6 % Eosinophils % 2 % Basophils % 0 % Neutrophils # 3.9 (1.3-7.7) k/uL Lymphocytes # 1.9 (1.0-4.8) k/uL Monocytes # 0.4 (0-1.0) k/uL Eosinophils # 0.1 (0-0.7) k/uL Basophils # 0.0 (0-0.2) k/uL PT 10.4 (9.0-12.0) sec INR 0.9 (<1.2) APTT 22.8 (22.0-30.0) sec Sodium 128 L (137-145) mmol/L Potassium 4.7 (3.5-5.1) mmol/L Chloride 97 L (98-107) mmol/L Carbon Dioxide 21 L (22-30) mmol/L Anion Gap 10 mmol/L BUN 12 (9-20) mg/dL Creatinine 0.77 (0.66-1.25) mg/dL Est GFR (CKD-EPI)AfAm >90 (>60 ml/min/1.73 sqM) Est GFR (CKD-EPI)NonAf >90 (>60 ml/min/1.73 sqM) Glucose 108 H (74-99) mg/dL Calcium 9.7 (8.4-10.2) mg/dL Magnesium 1.5 L (1.6-2.3) mg/dL Total Bilirubin 0.4 (0.2-1.3) mg/dL AST 39 (17-59) U/L ALT 37 (4-49) U/L Alkaline Phosphatase 93 (38-126) U/L Troponin I (0.000-0.034) ng/mL Total Protein 7.1 (6.3-8.2) g/dL Albumin 4.3 (3.5-5.0) g/dL Amylase 50 (30-110) U/L Lipase 41 (23-300) U/L Urine Color Urine Appearance (Clear) Urine pH (5.0-8.0) Ur Specific [place] (1.001-1.035) Urine Protein (Negative) Urine Glucose (UA) (Negative) Urine Ketones (Negative) Urine Blood (Negative) Urine Nitrite (Negative) Urine Bilirubin (Negative) Urine Urobilinogen (<2.0) mg/dL Ur Leukocyte Esterase (Negative) 11/25/21 11/25/21 Range/Units 12:32 13:30 WBC (3.8-10.6) k/uL RBC (4.30-5.90) m/uL Hgb (13.0-17.5) gm/dL Hct (39.0-53.0) % MCV (80.0-100.0) fL MCH (25.0-35.0) pg MCHC (31.0-37.0) g/dL RDW (11.5-15.5) % Plt Count (150-450) k/uL MPV Neutrophils % % Lymphocytes % % Monocytes % % Eosinophils % % Basophils % % Neutrophils # (1.3-7.7) k/uL Lymphocytes # (1.0-4.8) k/uL Monocytes # (0-1.0) k/uL Eosinophils # (0-0.7) k/uL Basophils # (0-0.2) k/uL PT (9.0-12.0) sec INR (<1.2) APTT (22.0-30.0) sec Sodium (137-145) mmol/L Potassium (3.5-5.1) mmol/L Chloride (98-107) mmol/L Carbon Dioxide (22-30) mmol/L Anion Gap mmol/L BUN (9-20) mg/dL Creatinine (0.66-1.25) mg/dL Est GFR (CKD-EPI)AfAm (>60 ml/min/1.73 sqM) Est GFR (CKD-EPI)NonAf (>60 ml/min/1.73 sqM) Glucose (74-99) mg/dL Calcium (8.4-10.2) mg/dL Magnesium (1.6-2.3) mg/dL Total Bilirubin (0.2-1.3) mg/dL AST (17-59) U/L ALT (4-49) U/L Alkaline Phosphatase (38-126) U/L Troponin I <0.012 (0.000-0.034) ng/mL Total Protein (6.3-8.2) g/dL Albumin (3.5-5.0) g/dL Amylase (30-110) U/L Lipase (23-300) U/L Urine Color Yellow Urine Appearance Clear (Clear) Urine pH 7.0 (5.0-8.0) Ur Specific [place] 1.018 (1.001-1.035) Urine Protein Negative (Negative) Urine Glucose (UA) Negative (Negative) Urine Ketones Negative (Negative) Urine Blood Negative (Negative) Urine Nitrite Negative (Negative) Urine Bilirubin Negative (Negative) Urine Urobilinogen <2.0 (<2.0) mg/dL Ur Leukocyte Esterase Negative (Negative) - EKG Data -: EKG Interpreted by Me EKG Comments: 12-lead Electrocardiogram Interpretation Note EKG was reviewed and interpreted by myself. 12-lead ECG performed at 1210 is interpreted by me as revealing normal sinus rhythm at a rate of 72 beats per minute. [place] is normal. NV interval is 146 ms, QRS duration is 88 ms, QTc 391 ms. There were no ST or T wave abnormalities to suggest myocardial ischemia or injury. R wave progression across the precordium was satisfactory. By my interpretation this EKG is non-diagnostic for acute ischemia. EKG is unchanged from prior EKGs. Disposition Clinical Impression: Chronic abdominal pain, Chest pain of unknown etiology Disposition: HOME SELF-CARE Condition: Good Instructions (If sedation given, give patient instructions): Abdominal Pain (ED) Prescriptions: Docusate [Colace] 100 mg PO BID PRN 7 Days #14 capsule PRN Reason: Constipation Polyethylene Glycol 3350 [Miralax] 17 gm PO DAILY #527 gm Is patient prescribed a controlled substance at d/c from ED?: No Referrals: Padilla Arias [Primary Care Provider] - 1-2 days Heidi Banks MD [STAFF PHYSICIAN] - 1-2 days
[2021-11-25] MEDS ORDERED: DOCUSATE 100 MG CAP PO STA (14:10)
[2021-11-25 15:11] VITALS: BP 150/77; PULSE 62; RESP 16; TEMP 98
== END 2021-11-25 15:10 | disposition home or self-care (01) ==
LOC: EC 11:41
DX: G89.29 Other chronic pain (principal); R10.9 Unspecified abdominal pain; R07.89 Other chest pain; I25.10 Atherosclerotic heart disease of native coronary artery without angina pectoris; E78.5 Hyperlipidemia, unspecified; I10 Essential (primary) hypertension; I25.2 Old myocardial infarction; F31.9 Bipolar disorder, unspecified; F41.9 Anxiety disorder, unspecified; F17.200 Nicotine dependence, unspecified, uncomplicated; F12.90 Cannabis use, unspecified, uncomplicated; Z79.899 Other long term (current) drug therapy
CPT/HCPCS: 99285; 96365; 96375 ×3; 96361; 36415; 93005; 80053; 82150; 83690; 83735; 84484; 85025; 85610; 85730; 81003; 71046; 74177; J2270; J1200; J2765; J3475; Q9967

== ENCOUNTER 2021-11-27 06:46 | Emergency (ER) | payer MEDICARE, OTHER ==
[2021-11-27 06:53] VITALS: BP 174/99; PULSE 80; RESP 18; TEMP 98.7
[2021-11-27] MEDS ORDERED: SODIUM CHLORIDE 0.9% 1,000 ML IV STA (06:59)
[2021-11-27] MEDS ORDERED: ONDANSETRON 4 MG/2 ML VIAL IVP STA (06:59)
[2021-11-27] MEDS ORDERED: MORPHINE SULFATE 4 MG/ML SYRINGE IV STA (06:59)
--- NOTE | 2021-11-27 07:02 | ED ---
Abdominal Pain HPI - General Chief Complaint: Abdominal Pain Stated Complaint: Abdominal pain Time Seen by Provider: 11/27/21 06:53 Source: patient, EMS Mode of arrival: EMS - History of Present Illness Initial Comments: 46-year-old male patient presents to the emergency department today for evaluation of abdominal pain and chest pain. States this started about half an hour ago, woke him from sleep. He reports associated sweats and nausea. Denies any vomiting or diarrhea. Denies any hematuria or dysuria. States he attempted some decreased urination. Patient does come to the emergency department frequently for abdominal pain, states that he has been doing well for the last few days. Has had cholecystectomy in the past no other abdominal surgeries. Patient denies any recent rash, fever, chills, cough, shortness of breath, chest pain, back pain, numbness, tingling, dizziness, weakness, headache, visual changes, or any other complaints. - Related Data Home Medications Medication Instructions Recorded Confirmed busPIRone HCL [Buspar] 7.5 mg PO TID 03/14/21 11/27/21 Loratadine [Claritin] 10 mg PO DAILY 08/17/21 11/27/21 Metoprolol Tartrate [Lopressor] 25 mg PO BID 08/17/21 11/27/21 Nitroglycerin Sl Tabs [Nitrostat] 0.4 mg SL Q5M PRN 08/23/21 11/27/21 Albuterol Sulfate [Ventolin HFA] 2 puff INHALATION RT-QID PRN 10/02/21 11/27/21 Carvedilol [Coreg] 6.25 mg PO BID-W/MEALS 10/02/21 11/27/21 Losartan [Cozaar] 50 mg PO DAILY 10/02/21 11/27/21 Naproxen 500 mg PO BID-W/MEALS PRN 10/02/21 11/27/21 OLANZapine 5 mg PO HS 10/02/21 11/27/21 Omeprazole 40 mg PO DAILY 10/02/21 11/27/21 Tamsulosin [Flomax] 0.8 mg PO HS 10/02/21 11/27/21 Atorvastatin Calcium [Lipitor] 10 mg PO HS 11/18/21 11/27/21 Baclofen [Lioresal] 20 mg PO BID PRN 11/18/21 11/27/21 Citalopram Hydrobromide [CeleXA] 40 mg PO DAILY 11/18/21 11/27/21 Gabapentin [Neurontin] 300 mg PO TID 11/18/21 11/27/21 Melatonin 10 mg PO HS 11/18/21 11/27/21 haloperidoL [Haldol] 10 mg PO DAILY 11/18/21 11/27/21 hydrOXYzine HCL [Atarax] 50 mg PO TID PRN 11/18/21 11/27/21 Previous Rx's Medication Instructions Recorded Folic Acid 1 mg PO DAILY@1200 #30 tab 08/22/21 Famotidine [Pepcid] 20 mg PO DAILY 7 Days #7 tablet 11/21/21 Ondansetron Odt [Zofran Odt] 4 mg PO Q8HR PRN #10 tab 11/22/21 Docusate [Colace] 100 mg PO BID PRN 7 Days #14 11/25/21 capsule Polyethylene Glycol 3350 [Miralax] 17 gm PO DAILY #527 gm 11/25/21 Allergies Allergy/AdvReac Type Severity Reaction Status Date / Time tramadol Allergy Severe Itching Verified 11/27/21 07:55 hydromorphone [From Dilaudid] AdvReac Confusion Verified 11/27/21 07:55 Review of Systems ROS Statement: Those systems with pertinent positive or pertinent negative responses have been documented in the HPI. ROS Other: All systems not noted in ROS Statement are negative. Past Medical History Past Medical History: Coronary Artery Disease (CAD), Chest Pain / Angina, Hyperlipidemia, Hypertension, Myocardial Infarction (ID) Additional Past Medical History / Comment(s): Recent bronchitis Last Myocardial Infarction Date:: 2020 History of Any Multi-Drug Resistant Organisms: None Reported Past Surgical History: Cholecystectomy, Heart Catheterization Past Anesthesia/Blood Transfusion Reactions: No Reported Reaction Additional Past Anesthesia/Blood Transfusion Reaction / Comment(s): Pt has never had surgery. Past Psychological History: Anxiety, Bipolar, Depression, Panic Disorder Smoking Status: Current every day smoker Past Alcohol Use History: None Reported Past Drug Use History: Marijuana - Past Family History Father Family Medical History: Myocardial Infarction (ID) Additional Family Medical History / Comment(s): Father of a ID at the age of 41 yrs. Mother Family Medical History: Diabetes Mellitus General Exam General appearance: alert, in no apparent distress, other (This is a well- developed, well-nourished adult male in no acute distress.) ENT exam: Present: normal exam, normal oropharynx, mucous membranes moist Respiratory exam: Present: normal lung sounds bilaterally. Absent: respiratory distress, wheezes, rales, rhonchi, stridor Cardiovascular Exam: Present: regular rate, normal rhythm, normal heart sounds. Absent: systolic murmur, diastolic murmur, rubs, gallop, clicks GI/Abdominal exam: Present: soft, tenderness (Midepigastric, right lower quadrant), normal bowel sounds. Absent: distended, guarding, rebound, rigid Neurological exam: Present: alert, oriented X3, CN II-XII intact Psychiatric exam: Present: normal affect, normal mood Skin exam: Present: warm, dry, intact, normal color. Absent: rash Course Vital Signs 11/27/21 06:50 Temperature 98.7 F Pulse Rate 80 Respiratory 18 Rate Blood Pressure 174/99 O2 Sat by Pulse 98 Oximetry Medical Decision Making - Medical Decision Making 46-year-old male patient presents to the emergency department today for evalua tion of abdominal pain and chest pain that started about a half hour prior to arrival. Physical examination did reveal midepigastric and right lower quadrant tenderness. He is afebrile, vital signs. Labs reviewed and did reveal albumin low sodium. He'll be discharged follow up with the primary care physician and GI specialist as he has been having frequent abdominal pain similar to this. He verbalizes understanding and agrees with this plan. My attending is Dr. Preciado. - Lab Data Result diagrams: 11/27/21 07:10 11/27/21 07:10 Lab Results 11/27/21 11/27/21 11/27/21 Range/Units 07:10 07:10 07:10 WBC 7.9 (3.8-10.6) k/uL RBC 4.41 (4.30-5.90) m/uL Hgb 13.4 (13.0-17.5) gm/dL Hct 40.0 (39.0-53.0) % MCV 90.7 (80.0-100.0) fL MCH 30.5 (25.0-35.0) pg MCHC 33.6 (31.0-37.0) g/dL RDW 13.1 (11.5-15.5) % Plt Count 351 (150-450) k/uL MPV 7.9 Neutrophils % 65 % Lymphocytes % 24 % Monocytes % 5 % Eosinophils % 3 % Basophils % 1 % Neutrophils # 5.1 (1.3-7.7) k/uL Lymphocytes # 1.9 (1.0-4.8) k/uL Monocytes # 0.4 (0-1.0) k/uL Eosinophils # 0.3 (0-0.7) k/uL Basophils # 0.0 (0-0.2) k/uL Sodium 133 L (137-145) mmol/L Potassium 4.8 (3.5-5.1) mmol/L Chloride 105 (98-107) mmol/L Carbon Dioxide 23 (22-30) mmol/L Anion Gap 5 mmol/L BUN 8 L (9-20) mg/dL Creatinine 0.78 (0.66-1.25) mg/dL Est GFR (CKD-EPI)AfAm >90 (>60 ml/min/1.73 sqM) Est GFR (CKD-EPI)NonAf >90 (>60 ml/min/1.73 sqM) Glucose 95 (74-99) mg/dL Plasma Lactic Acid Javier (0.7-2.0) mmol/L Calcium 10.1 (8.4-10.2) mg/dL Total Bilirubin 0.4 (0.2-1.3) mg/dL AST 35 (17-59) U/L ALT 31 (4-49) U/L Alkaline Phosphatase 95 (38-126) U/L Troponin I (0.000-0.034) ng/mL Total Protein 7.4 (6.3-8.2) g/dL Albumin 4.3 (3.5-5.0) g/dL Lipase 45 (23-300) U/L Urine Color Light Yellow Urine Appearance Clear (Clear) Urine pH 7.0 (5.0-8.0) Ur Specific [place] 1.010 (1.001-1.035) Urine Protein Negative (Negative) Urine Glucose (UA) Negative (Negative) Urine Ketones Negative (Negative) Urine Blood Negative (Negative) Urine Nitrite Negative (Negative) Urine Bilirubin Negative (Negative) Urine Urobilinogen <2.0 (<2.0) mg/dL Ur Leukocyte Esterase Negative (Negative) 11/27/21 11/27/21 Range/Units 07:10 07:10 WBC (3.8-10.6) k/uL RBC (4.30-5.90) m/uL Hgb (13.0-17.5) gm/dL Hct (39.0-53.0) % MCV (80.0-100.0) fL MCH (25.0-35.0) pg MCHC (31.0-37.0) g/dL RDW (11.5-15.5) % Plt Count (150-450) k/uL MPV Neutrophils % % Lymphocytes % % Monocytes % % Eosinophils % % Basophils % % Neutrophils # (1.3-7.7) k/uL Lymphocytes # (1.0-4.8) k/uL Monocytes # (0-1.0) k/uL Eosinophils # (0-0.7) k/uL Basophils # (0-0.2) k/uL Sodium (137-145) mmol/L Potassium (3.5-5.1) mmol/L Chloride (98-107) mmol/L Carbon Dioxide (22-30) mmol/L Anion Gap mmol/L BUN (9-20) mg/dL Creatinine (0.66-1.25) mg/dL Est GFR (CKD-EPI)AfAm (>60 ml/min/1.73 sqM) Est GFR (CKD-EPI)NonAf (>60 ml/min/1.73 sqM) Glucose (74-99) mg/dL Plasma Lactic Acid Javier 1.1 (0.7-2.0) mmol/L Calcium (8.4-10.2) mg/dL Total Bilirubin (0.2-1.3) mg/dL AST (17-59) U/L ALT (4-49) U/L Alkaline Phosphatase (38-126) U/L Troponin I <0.012 (0.000-0.034) ng/mL Total Protein (6.3-8.2) g/dL Albumin (3.5-5.0) g/dL Lipase (23-300) U/L Urine Color Urine Appearance (Clear) Urine pH (5.0-8.0) Ur Specific [place] (1.001-1.035) Urine Protein (Negative) Urine Glucose (UA) (Negative) Urine Ketones (Negative) Urine Blood (Negative) Urine Nitrite (Negative) Urine Bilirubin (Negative) Urine Urobilinogen (<2.0) mg/dL Ur Leukocyte Esterase (Negative) - EKG Data -: EKG Interpreted by Me EKG Comments: EKG obtained at 0704 shows normal sinus rhythm with a ventricular rate of 67, WI interval 149, QR rastafarian 90, QT 395, QTC 411. No evidence of ST elevation or depression. - Radiology Data Radiology results: report reviewed, image reviewed 2 views of the chest are obtained. Report is reviewed in its entirety. Impression by Dr. Garcia shows correlate to exclude some right perihilar atelectasis versus subtle right perihilar interstitial infiltrates. Background COPD. Disposition Clinical Impression: Abdominal pain Disposition: HOME SELF-CARE Condition: Good Instructions (If sedation given, give patient instructions): Abdominal Pain (ED) Additional Instructions: Follow up with the primary care physician for recheck in 1-2 days. Return for any new, worsening, or concerning symptoms. Is patient prescribed a controlled substance at d/c from ED?: No Referrals: Padilla Arias [Primary Care Provider] - 1-2 days Heidi Banks MD [STAFF PHYSICIAN] - 1-2 days Time of Disposition: 08:00
[2021-11-27 07:20] LABS: Basophils % (A) 1 %; Eosinophils # (A) 0.3 k/uL (0-0.7); Eosinophils % (A) 3 %; HGB 13.4 gm/dL (13.0-17.5); Lymphocytes # (A) 1.9 k/uL (1.0-4.8); Lymphocytes % (A) 24 %; MCH 30.5 pg (25.0-35.0); MCHC 33.6 g/dL (31.0-37.0); MCV 90.7 fL (80.0-100.0); Mean Platelet Volume 7.9; Monocytes # (A) 0.4 k/uL (0-1.0); Monocytes % (A) 5 %; Neutrophils # (A) 5.1 k/uL (1.3-7.7); Neutrophils % (A) 65 %; Platelet Count 351 k/uL (150-450); RBC 4.41 m/uL (4.30-5.90); RDW 13.1 % (11.5-15.5); WBC 7.9 k/uL (3.8-10.6)
--- NOTE | 2021-11-27 07:21 | XR ---
EXAMINATION TYPE: XR chest 2V DATE OF EXAM: 11/27/2021 COMPARISON: 11/25/2021 HISTORY: 46-year-old male with abdominal pain and mid chest pain. TECHNIQUE: PA and lateral views FINDINGS: The heart is normal size. Aorta and pulmonary vasculature within normal limits. Mild hyperinflation. There is some mild increased interstitial density at the right suprahilar right infrahilar regions. N o pleural effusion. IMPRESSION: Correlate to exclude some right perihilar atelectasis versus subtle right perihilar interstitial infi ltrates. Background COPD.
[2021-11-27 07:25] LABS: Appearance,Urine Clear (Clear); Bilirubin,Urine Negative (Negative); Blood,Urine Negative (Negative); Color,Urine Light Yellow; Glucose,Urine (UA) Negative (Negative); Ketones,Urine Negative (Negative); Leukocyte Esterase,Urine Negative (Negative); Nitrite,Urine Negative (Negative); Protein,Urine Negative (Negative); Urobilinogen,Urine <2.0 mg/dL (<2.0)
[2021-11-27 07:30] LABS: ALT 31 U/L (4-49); AST 35 U/L (17-59); African American GFR (CKD) >90 (>60 ml/min/1.73 sqM); Albumin 4.3 g/dL (3.5-5.0); Alkaline Phosphatase 95 U/L (38-126); Anion Gap 5 mmol/L; Blood Urea Nitrogen 8 mg/dL (9-20); Calcium 10.1 mg/dL (8.4-10.2); Carbon Dioxide 23 mmol/L (22-30); Chloride 105 mmol/L (98-107); Glucose 95 mg/dL (74-99); Lipase 45 U/L (23-300); Non-African American GFR(CKD) >90 (>60 ml/min/1.73 sqM); Potassium 4.8 mmol/L (3.5-5.1); Sodium 133 mmol/L (137-145); Total Bilirubin 0.4 mg/dL (0.2-1.3); Total Protein 7.4 g/dL (6.3-8.2)
== END 2021-11-27 08:10 | disposition home or self-care (01) ==
LOC: EC 06:46
DX: R10.31 Right lower quadrant pain (principal); I25.10 Atherosclerotic heart disease of native coronary artery without angina pectoris; E78.5 Hyperlipidemia, unspecified; I10 Essential (primary) hypertension; I25.2 Old myocardial infarction; F41.9 Anxiety disorder, unspecified; F31.9 Bipolar disorder, unspecified; F17.200 Nicotine dependence, unspecified, uncomplicated; F12.90 Cannabis use, unspecified, uncomplicated; Z88.1 Allergy status to other antibiotic agents; Z88.5 Allergy status to narcotic agent; Z90.49 Acquired absence of other specified parts of digestive tract
CPT/HCPCS: 99285; 96374; 96375; 96361; 36415; 80053; 83605; 83690; 84484; 85025; 81003; 71046; J2270; J2405

== ENCOUNTER 2021-12-02 18:15 | Emergency (ER) | payer MEDICARE, OTHER ==
[2021-12-02 18:26] VITALS: BP 179/105; PULSE 86; RESP 18; TEMP 98.5
--- NOTE | 2021-12-02 18:59 | XR ---
EXAMINATION TYPE: XR KUB DATE OF EXAM: 12/02/2021 6:52 PM INDICATION: Patient age:Male; 46 years old; Reason for study: ab pain; COMPARISON: 11/30/2021 TECHNIQUE: One radiographic view of the abdomen was obtained. FINDINGS: The bowel gas pattern is nonspecific without dilated loops of small or large bowel. The os seous structures are intact. No abnormal calcifications are present. Fecal material and gas are demo nstrated throughout the colon and rectum. IMPRESSION: Nonspecific bowel gas pattern without radiographic evidence for acute process.
--- NOTE | 2021-12-02 19:29 | ED ---
General Adult HPI - General Chief complaint: Abdominal Pain Stated complaint: Abdominal Pain Time Seen by Provider: 12/02/21 18:19 Source: patient, RN notes reviewed, old records reviewed Mode of arrival: EMS Limitations: no limitations - History of Present Illness Initial comments: 46-year-old male presents for reevaluation of abdominal pain. Patient has had ongoing symptoms for several weeks. He's had multiple ER visits. He states that he believes he is constipated. He denies fever. He states the pain is in the middle of his abdomen. It does seem to come and go. He's had no vomiting. He states he had an bowel movement which she believes was normal just prior to arrival. - Related Data Home Medications Medication Instructions Recorded Confirmed busPIRone HCL [Buspar] 7.5 mg PO TID 03/14/21 12/02/21 Loratadine [Claritin] 10 mg PO DAILY 08/17/21 12/02/21 Metoprolol Tartrate [Lopressor] 25 mg PO BID 08/17/21 12/02/21 Nitroglycerin Sl Tabs [Nitrostat] 0.4 mg SL Q5M PRN 08/23/21 12/02/21 Albuterol Sulfate [Ventolin HFA] 2 puff INHALATION RT-QID PRN 10/02/21 12/02/21 Carvedilol [Coreg] 6.25 mg PO BID-W/MEALS 10/02/21 12/02/21 Losartan [Cozaar] 50 mg PO DAILY 10/02/21 12/02/21 Naproxen 500 mg PO BID-W/MEALS PRN 10/02/21 12/02/21 OLANZapine 5 mg PO HS 10/02/21 12/02/21 Omeprazole 40 mg PO DAILY 10/02/21 12/02/21 Tamsulosin [Flomax] 0.8 mg PO HS 10/02/21 12/02/21 Atorvastatin Calcium [Lipitor] 10 mg PO HS 11/18/21 12/02/21 Baclofen [Lioresal] 20 mg PO BID PRN 11/18/21 12/02/21 Citalopram Hydrobromide [CeleXA] 40 mg PO DAILY 11/18/21 12/02/21 Gabapentin [Neurontin] 300 mg PO TID 11/18/21 12/02/21 Melatonin 10 mg PO HS 11/18/21 12/02/21 haloperidoL [Haldol] 10 mg PO DAILY 11/18/21 12/02/21 hydrOXYzine HCL [Atarax] 50 mg PO TID PRN 11/18/21 12/02/21 Previous Rx's Medication Instructions Recorded Folic Acid 1 mg PO DAILY@1200 #30 tab 08/22/21 Ondansetron Odt [Zofran Odt] 4 mg PO Q8HR PRN #10 tab 11/22/21 Docusate [Colace] 100 mg PO BID PRN 7 Days #14 11/25/21 capsule Polyethylene Glycol 3350 [Miralax] 17 gm PO DAILY #527 gm 11/25/21 Famotidine [Pepcid] 20 mg PO BID #60 tablet 11/30/21 Pantoprazole [Protonix] 40 mg PO DAILY #30 tab 11/30/21 Allergies Allergy/AdvReac Type Severity Reaction Status Date / Time tramadol Allergy Severe Itching Verified 12/02/21 18:27 hydromorphone [From Dilaudid] AdvReac Confusion Verified 12/02/21 18:27 Review of Systems ROS Statement: Those systems with pertinent positive or pertinent negative responses have been documented in the HPI. ROS Other: All systems not noted in ROS Statement are negative. Past Medical History Past Medical History: Coronary Artery Disease (CAD), Chest Pain / Angina, Hyperlipidemia, Hypertension, Myocardial Infarction (PA) Additional Past Medical History / Comment(s): Recent bronchitis Last Myocardial Infarction Date:: 2020 History of Any Multi-Drug Resistant Organisms: None Reported Past Surgical History: Cholecystectomy, Heart Catheterization Past Anesthesia/Blood Transfusion Reactions: No Reported Reaction Additional Past Anesthesia/Blood Transfusion Reaction / Comment(s): Pt has never had surgery. Past Psychological History: Anxiety, Bipolar, Depression, Panic Disorder Smoking Status: Current every day smoker Past Alcohol Use History: None Reported Past Drug Use History: Marijuana - Past Family History Father Family Medical History: Myocardial Infarction (PA) Additional Family Medical History / Comment(s): Father of a PA at the age of 41 yrs. Mother Family Medical History: Diabetes Mellitus General Exam Limitations: no limitations General appearance: alert, appears intoxicated Head exam: Present: atraumatic, normocephalic Eye exam: Present: normal appearance, PERRL ENT exam: Present: normal exam Neck exam: Present: normal inspection. Absent: tenderness, meningismus Respiratory exam: Present: normal lung sounds bilaterally. Absent: respiratory distress, wheezes Cardiovascular Exam: Present: regular rate, normal rhythm GI/Abdominal exam: Present: soft. Absent: distended, tenderness, guarding, rebound, rigid Extremities exam: Present: normal inspection, normal capillary refill. Absent: pedal edema Neurological exam: Present: alert, oriented X3, CN II-XII intact. Absent: motor sensory deficit Psychiatric exam: Present: normal affect, normal mood Skin exam: Present: warm, dry, intact. Absent: cyanosis, diaphoretic Course Vital Signs 12/02/21 18:23 Temperature 98.5 F Pulse Rate 86 Respiratory 18 Rate Blood Pressure 179/105 O2 Sat by Pulse 99 Oximetry Medical Decision Making - Medical Decision Making 38-year-old male with presenting with abdominal pain. Nontender. Symptoms improved at the time my evaluation. X-ray negative for obstructive process. I did reevaluate the patient and he was dressed and eager for discharge. He states that he had no 0.0 with his primary care physician tomorrow. He should maintain this appointment. Given strict return parameters. Disposition Clinical Impression: Chronic abdominal pain Disposition: HOME SELF-CARE Condition: Fair Instructions (If sedation given, give patient instructions): Abdominal Pain (ED) Is patient prescribed a controlled substance at d/c from ED?: No Referrals: Padilla Arias [Primary Care Provider] - 1-2 days Time of Disposition: 21:01
== END 2021-12-02 21:03 | disposition home or self-care (01) ==
LOC: EC 18:15
DX: R10.9 Unspecified abdominal pain (principal); I25.10 Atherosclerotic heart disease of native coronary artery without angina pectoris; E78.5 Hyperlipidemia, unspecified; I10 Essential (primary) hypertension; I25.2 Old myocardial infarction; F41.9 Anxiety disorder, unspecified; F31.9 Bipolar disorder, unspecified; F17.200 Nicotine dependence, unspecified, uncomplicated; F12.90 Cannabis use, unspecified, uncomplicated; Z88.1 Allergy status to other antibiotic agents; Z88.5 Allergy status to narcotic agent; Z90.49 Acquired absence of other specified parts of digestive tract
CPT/HCPCS: 74018; 99284

== ENCOUNTER 2021-12-04 19:31 | Emergency (ER) | payer MEDICARE, OTHER ==
[2021-12-04 19:47] VITALS: BP 172/82; PULSE 72; RESP 18; TEMP 98.3
--- NOTE | 2021-12-04 20:22 | ED ---
General Adult HPI - General Chief complaint: Abdominal Pain Stated complaint: Abdominal Pain Time Seen by Provider: 12/04/21 19:45 Source: patient Mode of arrival: ambulatory Limitations: no limitations - History of Present Illness Initial comments: This 46-year-old male who is well-known to this facility presents emergency Department with generalized abdominal pain that began a few hours ago after eating a hot dog. Patient states "they usually give me morphine and it fixes my pain then I go home." Patient states his pain is all over his abdomen but more in his upper abdomen. Patient states this pain is 7/10 and is described as dull aching. Patient denies any radiation to his groin, back or chest. Patient denies any fever, nausea, vomiting, chest pain, change in bowel or bladder, headache, lightheadedness, shortness of breath, dizziness, change in vision, blurred vision. - Related Data Home Medications Medication Instructions Recorded Confirmed busPIRone HCL [Buspar] 7.5 mg PO TID 03/14/21 12/02/21 Loratadine [Claritin] 10 mg PO DAILY 08/17/21 12/02/21 Metoprolol Tartrate [Lopressor] 25 mg PO BID 08/17/21 12/02/21 Nitroglycerin Sl Tabs [Nitrostat] 0.4 mg SL Q5M PRN 08/23/21 12/02/21 Albuterol Sulfate [Ventolin HFA] 2 puff INHALATION RT-QID PRN 10/02/21 12/02/21 Carvedilol [Coreg] 6.25 mg PO BID-W/MEALS 10/02/21 12/02/21 Losartan [Cozaar] 50 mg PO DAILY 10/02/21 12/02/21 Naproxen 500 mg PO BID-W/MEALS PRN 10/02/21 12/02/21 OLANZapine 5 mg PO HS 10/02/21 12/02/21 Omeprazole 40 mg PO DAILY 10/02/21 12/02/21 Tamsulosin [Flomax] 0.8 mg PO HS 10/02/21 12/02/21 Atorvastatin Calcium [Lipitor] 10 mg PO HS 11/18/21 12/02/21 Baclofen [Lioresal] 20 mg PO BID PRN 11/18/21 12/02/21 Citalopram Hydrobromide [CeleXA] 40 mg PO DAILY 11/18/21 12/02/21 Gabapentin [Neurontin] 300 mg PO TID 11/18/21 12/02/21 Melatonin 10 mg PO HS 11/18/21 12/02/21 haloperidoL [Haldol] 10 mg PO DAILY 11/18/21 12/02/21 hydrOXYzine HCL [Atarax] 50 mg PO TID PRN 11/18/21 12/02/21 Previous Rx's Medication Instructions Recorded Folic Acid 1 mg PO DAILY@1200 #30 tab 08/22/21 Ondansetron Odt [Zofran Odt] 4 mg PO Q8HR PRN #10 tab 11/22/21 Docusate [Colace] 100 mg PO BID PRN 7 Days #14 11/25/21 capsule Polyethylene Glycol 3350 [Miralax] 17 gm PO DAILY #527 gm 11/25/21 Famotidine [Pepcid] 20 mg PO BID #60 tablet 11/30/21 Pantoprazole [Protonix] 40 mg PO DAILY #30 tab 11/30/21 Allergies Allergy/AdvReac Type Severity Reaction Status Date / Time tramadol Allergy Severe Itching Verified 12/02/21 18:27 hydromorphone [From Dilaudid] AdvReac Confusion Verified 12/02/21 18:27 Review of Systems ROS Statement: Those systems with pertinent positive or pertinent negative responses have been documented in the HPI. ROS Other: All systems not noted in ROS Statement are negative. Past Medical History Past Medical History: Coronary Artery Disease (CAD), Chest Pain / Angina, Hyperlipidemia, Hypertension, Myocardial Infarction (VT) Additional Past Medical History / Comment(s): Recent bronchitis Last Myocardial Infarction Date:: 2020 History of Any Multi-Drug Resistant Organisms: None Reported Past Surgical History: Cholecystectomy, Heart Catheterization Past Anesthesia/Blood Transfusion Reactions: No Reported Reaction Additional Past Anesthesia/Blood Transfusion Reaction / Comment(s): Pt has never had surgery. Past Psychological History: Anxiety, Bipolar, Depression, Panic Disorder Smoking Status: Current every day smoker Past Alcohol Use History: None Reported Past Drug Use History: Marijuana - Past Family History Father Family Medical History: Myocardial Infarction (VT) Additional Family Medical History / Comment(s): Father of a VT at the age of 41 yrs. Mother Family Medical History: Diabetes Mellitus General Exam Limitations: no limitations General appearance: alert, in no apparent distress Head exam: Present: atraumatic, normocephalic, normal inspection Eye exam: Present: normal appearance, PERRL, EOMI. Absent: scleral icterus, conjunctival injection, periorbital swelling ENT exam: Present: mucous membranes moist Neck exam: Present: full ROM Respiratory exam: Present: normal lung sounds bilaterally. Absent: respiratory distress, wheezes, rales, rhonchi, stridor Cardiovascular Exam: Present: regular rate, normal rhythm, normal heart sounds. Absent: systolic murmur, diastolic murmur, rubs, gallop, clicks GI/Abdominal exam: Present: soft, tenderness (Mild pain to all quadrants, worse this above bellybutton and upper epigastric region), normal bowel sounds. Absent: distended, guarding, rebound, rigid Extremities exam: Present: full ROM Back exam: Present: full ROM. Absent: CVA tenderness (R), CVA tenderness (L), paraspinal tenderness, vertebral tenderness Neurological exam: Present: alert, oriented X3, CN II-XII intact Psychiatric exam: Present: normal affect, normal mood Skin exam: Present: warm, dry, intact, normal color. Absent: rash Course Vital Signs 12/04/21 19:43 Temperature 98.3 F Pulse Rate 72 Respiratory 18 Rate Blood Pressure 172/82 O2 Sat by Pulse 100 Oximetry - Reevaluation(s) Reevaluation #1: 12/04/21 20:[address] Larose about this patient, I informed patient that he would not be getting any narcotic medication. Patient states "I am out of here then." I did inform patient that he should stay for labs, abdominal x-ray, EKG, however patient did refuse and stated he was going to leave. Patient did sign AMA form. Medical Decision Making - Medical Decision Making This 46-year-old male presents to the department with abdominal pain. After telling patient would not be getting narcotic medication patient stated "I'm just going to leave then." I did inform patient that he should stay to get labs, abdominal x-ray, EKG, however patient stated he was just going to leave. I did discuss in detail why patient should stay until workup is completed. Before patient left, I did inform him to return to the emergency department with any worse, concerning or new symptoms. I instructed that he should follow-up with her primary care provider in the next couple of days. Patient did sign AMA form. Case discussed with attending, Dr. Larose. Disposition Clinical Impression: Abdominal pain Disposition: Left Against Medical Advice Condition: Serious Instructions (If sedation given, give patient instructions): Abdominal Pain (ED) Is patient prescribed a controlled substance at d/c from ED?: No Referrals: Padilla Arias [Primary Care Provider] - 1-2 days Time of Disposition: 20:25
== END 2021-12-04 20:23 | disposition left against medical advice (07) ==
LOC: EC 19:31
DX: R10.84 Generalized abdominal pain (principal); I25.10 Atherosclerotic heart disease of native coronary artery without angina pectoris; E78.5 Hyperlipidemia, unspecified; I10 Essential (primary) hypertension; I25.2 Old myocardial infarction; F41.9 Anxiety disorder, unspecified; F31.9 Bipolar disorder, unspecified; F17.200 Nicotine dependence, unspecified, uncomplicated; F12.90 Cannabis use, unspecified, uncomplicated; Z88.1 Allergy status to other antibiotic agents; Z88.5 Allergy status to narcotic agent; Z90.49 Acquired absence of other specified parts of digestive tract
CPT/HCPCS: 99284

== ENCOUNTER → 2022-01-05 | Outpatient (CLI) | payer MEDICARE, OTHER ==
[2022-01-05 10:27] VITALS: BP 148/68; PULSE 64; RESP 18; TEMP 98.2
--- NOTE | 2022-01-05 10:47 | P.CON ---
Consult Note - . Consult date: 01/05/22 Assessment/Plan:: HISTORY OF PRESENT ILLNESS: 46 yr old male as a referral from Dr Arias presents today with lower back pain secondary to disc herniations, neuroforaminal stenoses, left L2 encroachment, L4 and L5 impingement and facet arthropathy for evaluation. Patient states his lower back pain is 7 out of 10 in intensity, dull, achy, throbbing without radiation of pain to the lower extremities. It escalates as high as 10 out of 10 with bending, twisting and lifting. Pain is relieved with medications (Neurontin from Dr. Bach), heat, physical therapy which was discontinued until he has neck surgery, home daily stretching regimen, use of a lumbar support brace, repositioning and rest. PMH: CAD, PA (2020), Angina, HTN, Hyperlipidemia, Bipolar disorder PSH: Cardiac Cath, Cholecystectomy SH: Admits to Tobacco use disorder. Hx of ETOH abuse. Cannabis use. FH: Father- PA/ at age 41. Mother- DM. All: See list Meds: See list REVIEW OF ORGAN SYSTEMS: CONSTITUTIONAL: No fevers or chills. No recent weight lo ss. HEENT: No visual acuity loss, eye pain, difficulties with hearing. No nosebleeds. No difficulty swallowing. RESPIRATORY: Denies any troubles with breathing or dyspnea on exertion. CARDIOVASCULAR: Denies any chest pain, palpitations, or recent heart attacks. GASTROINTESTINAL: Denies fatty food intolerance. Has change in bowel habits and gas bloat. GENITOURINARY: Denies any blood in urine. Has increased urinary frequency. NEUROLOGICAL: + numbness and tingling along the distal extremities. No seizure disorders or headaches. MUSCULOSKELETAL: + back pain SKIN: No skin cancer. No rash. PSYCHIATRIC: Denies current depression or suicidal thoughts. ENDOCRINE: Denies current thyroid disorders. Denies any blood sugar glucose intolerance. HEME/LYMPHATIC: Denies any lumps and bumps around the neck. History of deep venous thrombosis. ALLERGY/IMMUNOLOGY: No immunoglobulin therapy. No immune deficiencies. BREAST: Denies current breast lumps, pain or nipple discharge. Physical Examinations : Constitutional : Cooperative , not in acute distress . HEENT: Neck supple. No Lymphadenopathy. Normal thyroid size . Eyes no ptosis , no icterus, no photophobia . Hearing intact. Normal oropharynx. No Thrush. Respiratory : Chest clear to auscultations bilaterally. No wheezing. No rhonchi. Cardiovascular : Regular rate and rhythm , S1 / S2. No S3 . No S4. Gastrointestinal : Abdomen soft. No tenderness. Bowel sounds x 4. No organomegaly . Genitourinary : Deferred. Neurologic : Cranial nerve II to XII intact. No focal neurological deficits. Psychiatric : alert & oriented x 3. Matching mood & appropriate affect. Judgment & insight intact. Lymphatic No Lymphadenopathy. Musculoskeletal : Cervical Spine Motor strength in the deltoid and biceps: Normal right side. Normal Left side Motor strength biceps and the wrist extensors: Normal right side . Normal left side Motor strength in the triceps muscle: Normal right side. Normal left side Deep tendon reflexes: Normal at the biceps. Normal at Brachioradialis. Normal at triceps Cervical facet loading test: positive bilaterally Spurling test: positive bilaterally Neck distraction test: positive bilaterally Meet sign: positive bilaterally Lumbar spine Motor strength lower extremities ,thigh and legs 5/5 Right side , 5/5 Left side Deep tendon reflexes : Normal Knee Jerk. Normal Ankle Jerk Vertebral body tenderness over L4 Lumbar facet Loading Test: positive Right / positive Left Range of motion of the lumbar spine Flexion 30 degrees, extension 10 degrees Straight Leg Raise test: Left/ Right positive at 30 degree Andrew test: positive right / positive left. Severe tenderness over the Sacroiliac joint on the Right / Left sides Gaenslen test: positive bilaterally Seated flexion test: positive b ilaterally. Imaging: MRI of the lumbar spine without contrast from 12/19/21 reviewed. Assessment/ Plan : Recommendation of LESI L4-L5. Risks, benefits of procedure discussed and patient verbalized understanding. Denies aspirin or anti- coagulant use. Denies medical history of diabetes. All questions answered. I have spent greater than 50 minutes on patient care today. Dr Dominguez was available by phone for the evaluation of this patient. The time was used to review the medical records including relevant urine studies and Prescription history (MAPs), review of the available imaging, evaluation and examination of the patient, coordination of care with the medical staff and if applicable referring physicians, as well as creation of the medical record PQRS Measure Charge Sheet Mode of Arrival: Ambulatory - Pain Location Lower Back Non-Pharmacological Interventions: Heat, Home Exercise, Physical Therapy, Position/Reposition, Sitting, Stretching Pharmacological Interventions: Scheduled Medication PQRS Narrative: Smoking Status Current every day smoker Blood Pressure 148/68 Pain Intensity [Lower Back] 7 Scale Used Numeric (1 - 10) Hx Alcohol Use (MH) No Home Medications: Ambulatory Orders busPIRone HCL [Buspar] 7.5 mg PO TID 03/14/21 Loratadine [Claritin] 10 mg PO DAILY 08/17/21 Metoprolol Tartrate [Lopressor] 25 mg PO BID 08/17/21 Folic Acid 1 mg PO DAILY@1200 #30 tab 08/22/21 Nitroglycerin Sl Tabs [Nitrostat] 0.4 mg SL Q5M PRN 08/23/21 Albuterol Sulfate [Ventolin HFA] 2 puff INHALATION RT-QID PRN 10/02/21 Carvedilol [Coreg] 6.25 mg PO BID-W/MEALS 10/02/21 Losartan [Cozaar] 50 mg PO DAILY 10/02/21 Naproxen 500 mg PO BID-W/MEALS PRN 10/02/21 OLANZapine 5 mg PO HS 10/02/21 Omeprazole 40 mg PO DAILY 10/02/21 Tamsulosin [Flomax] 0.8 mg PO HS 10/02/21 Atorvastatin Calcium [Lipitor] 10 mg PO HS 11/18/21 Baclofen [Lioresal] 20 mg PO BID PRN 11/18/21 Citalopram Hydrobromide [CeleXA] 40 mg PO DAILY 11/18/21 Gabapentin [Neurontin] 300 mg PO TID 11/18/21 Melatonin 10 mg PO HS 11/18/21 haloperidoL [Haldol] 10 mg PO DAILY 11/18/21 hydrOXYzine HCL [Atarax] 50 mg PO TID PRN 11/18/21 Ondansetron Odt [Zofran Odt] 4 mg PO Q8HR PRN #10 tab 11/22/21 Docusate [Colace] 100 mg PO BID PRN 7 Days #14 capsule 11/25/21 Polyethylene Glycol 3350 [Miralax] 17 gm PO DAILY #527 gm 11/25/21 Famotidine [Pepcid] 20 mg PO BID #60 tablet 11/30/21 Pantoprazole [Protonix] 40 mg PO DAILY #30 tab 11/30/21
== END ==
LOC: PNWHC3 09:52
PROVIDERS: ATTEND Specialist
DX: M54.50 Low back pain, unspecified (principal); I25.10 Atherosclerotic heart disease of native coronary artery without angina pectoris; I25.2 Old myocardial infarction; I10 Essential (primary) hypertension; E78.5 Hyperlipidemia, unspecified; F31.9 Bipolar disorder, unspecified; F17.200 Nicotine dependence, unspecified, uncomplicated; Z79.899 Other long term (current) drug therapy; Z88.6 Allergy status to analgesic agent; Z88.5 Allergy status to narcotic agent
CPT/HCPCS: 99211

== ENCOUNTER 2022-02-26 11:53 | Day surgery (SDC) | payer MEDICARE, OTHER ==
[2022-02-04 09:14] VITALS: BMI 25.8
[2022-02-26] MEDS ORDERED: LACTATED RINGERS 1,000 ML IV SCH (12:38)
[2022-02-26] MEDS ORDERED: LIDOCAINE 1% (10MG/ML) FOR IV START INTRADERMA PRN (12:38)
[2022-02-26 12:51] VITALS: TEMP 97.3
[2022-02-26] MEDS ORDERED: MIDAZOLAM 2 MG/2 ML VIAL ONE (12:54)
[2022-02-26] MEDS ORDERED: methylPREDNISolone ACETATE 40 MG/ML 1 ML VIAL ONE (12:54)
[2022-02-26] MEDS ORDERED: fentaNYL (PF) 50 MCG/ML 2 ML AMP ONE (12:54)
[2022-02-26] MEDS ORDERED: IOPAMIDOL M200 10 ML VIAL ONE (12:54)
--- NOTE | 2022-02-26 13:11 | P.PCN ---
Date of Procedure: 02/26/22 Procedure(s) Performed: PREOPERATIVE DIAGNOSIS: 1- Lumbar Degenerative Disc Diseases 2-Lumbar spondylosis with Facet arthropathy without myelopathy POSTOPERATIVE DIAGNOSIS: Same as preop diagnosis. PROCEDURE 1. Lumbar epidural steroid injection under fluoroscopic guidance at the L4-5 level. (Fluoroscopy imaging was available in radiology department) 2. Lumbar epidurogram. ANESTHESIA: Local with 1% lidocaine 3 ml and , moderate sedation with intravenous Versed 2 mg ,and fentanyle 100 Mcg EBL: Minimal PROCEDURE INDICATION: The patient with low back pain and radiculitis symptoms unresponsive to conservative treatment. Fluoroscopy was used to optimize visualization of the needle placement and to maximize safety. PROCEDURE DESCRIPTION / TECHNIQUE: The patient was seen and identified in the preoperative area. Risks, benefits, complications including but not limited to infections ,bleeding ,allergic reaction to the medications ,nerve damage and not complete pain releife , and alternatives were discussed with the patient. The patient agreed to proceed with the procedure and signed the consent. IV was started, and vital signs were stable. Patient was taken to the OR and time out was completed. The patient was placed in the prone position on procedure table and a pillow was placed under the abdomen to reduce lumbar lordosis. The lumbosacral area was prepped and draped in the usual sterile fashion.ere closely monitored during the procedure. C onscious sedation was used during the procedure to decrease patients anxiety. Vital signs was monitered during the entire procedure. Using anterior-posterior fluoroscopy, the L4-5 interlaminar space was identified and the skin over this site was marked and then infiltrated with 1% lidocaine subcutaneously. Subsequently, a 18-gauge Tuohy epidural needle was inserted and advanced toward the epidural space using the ``Loss of resistance technique and guided by AP and lateral fluoroscopy. The correct needle position in the epidural space was verified with the injection of 2 mL of the water soluble contrast dye Isovue 200 contrast and observing an excellent epidurogram with the epidural spread of the dye, after negative aspiration for blood and CSF and in the absence of paresthesias. Again after negative aspiration, a 6 ml mixture containing 80 mg of Depo-medrol , and 2 ml of preservative free Normal Saline, and 2 ml of preservative free lidocaine 1% solution was injected and a washout of epidurogram was seen. Needle was withdrawn intact, skin was cleansed, and bandages were applied. COMPLICATIONS: None DISPOSITION / PLANS: The patient was placed in a supine position and transferred to the recovery area in a stable condition for observation. There was no evidence of lower extremity motor or sensory deficit after the procedure. Patient was discharged from the recovery room after meeting discharge criteria. Home discharge instructions were given to the patient by the staff. The patient was reexamined prior to discharge. The patient will schedule a follow up in the clinic in 2-4 weeks.
[2022-02-26] MEDS ORDERED: IV FLUID CONTINUATION 1,000 ML IV ONE (13:13)
[2022-02-26 13:31] VITALS: BP 130/74; PULSE 61; RESP 17
--- NOTE | 2022-02-26 19:50 | FL ---
EXAMINATION TYPE: FL guided pain mgmt statistic DATE OF EXAM: 02/26/2022 FLUOROSCOPY Fluoroscopy time of 1 seconds was used during lumbar vertebral injection. 1 image/s document/s the [facility].
== END 2022-02-26 13:42 | disposition home or self-care (01) ==
LOC: ORPAIN 11:53
PROVIDERS: ATTEND Specialist
DX: M51.36 Other intervertebral disc degeneration, lumbar region (principal); M47.26 Other spondylosis with radiculopathy, lumbar region; Z88.5 Allergy status to narcotic agent
CPT/HCPCS: 62323; J2250; J1030; J3010; Q9966; 99152

== ENCOUNTER 2022-04-02 12:46 | Day surgery (SDC) | payer MEDICARE, OTHER ==
[2022-04-02] MEDS ORDERED: LACTATED RINGERS 1,000 ML IV SCH (13:07)
[2022-04-02] MEDS ORDERED: LIDOCAINE 1% (10MG/ML) FOR IV START INTRADERMA PRN (13:07)
[2022-04-02 13:11] VITALS: TEMP 98.3
[2022-04-02] MEDS ORDERED: methylPREDNISolone ACETATE 80 MG/ML 1 ML VIAL ONE (13:33)
[2022-04-02] MEDS ORDERED: fentaNYL (PF) 50 MCG/ML 2 ML AMP ONE (13:33)
[2022-04-02] MEDS ORDERED: IOPAMIDOL M200 10 ML VIAL ONE (13:33)
[2022-04-02] MEDS ORDERED: MIDAZOLAM 2 MG/2 ML VIAL ONE (13:33)
--- NOTE | 2022-04-02 13:46 | P.PCN ---
Date of Procedure: 04/02/22 Procedure(s) Performed: PREOPERATIVE DIAGNOSIS: 1- Lumbar Degenerative Disc Diseases 2-Lumbar spondylosis with Facet arthropathy without myelopathy POSTOPERATIVE DIAGNOSIS: Same as preop diagnosis. PROCEDURE 1. Lumbar epidural steroid injection under fluoroscopic guidance at the L4-5 level. (Fluoroscopy imaging was available in radiology department) 2. Lumbar epidurogram. ANESTHESIA: Local with 1% lidocaine 3 ml and , moderate sedation with intravenous Versed 2 mg ,and fentanyle 100 Mcg EBL: Minimal PROCEDURE INDICATION: The patient with low back pain and radiculitis symptoms unresponsive to conservative treatment. Fluoroscopy was used to optimize visualization of the needle placement and to maximize safety. PROCEDURE DESCRIPTION / TECHNIQUE: The patient was seen and identified in the preoperative area. Risks, benefits, complications including but not limited to infections ,bleeding ,allergic reaction to the medications ,nerve damage and not complete pain releife , and alternatives were discussed with the patient. The patient agreed to proceed with the procedure and signed the consent. IV was started, and vital signs were stable. Patient was taken to the OR and time out was completed. The patient was placed in the prone position on procedure table and a pillow was placed under the abdomen to reduce lumbar lordosis. The lumbosacral area was prepped and draped in the usual sterile fashion.ere closely monitored during the procedure. Conscious sedation was used during the procedure to decrease patients anxiety. Vital signs was monitered during the entire procedure. Using anterior-posterior fluoroscopy, the L4-5 interlaminar space was identified and the skin over this site was marked and then infiltrated with 1% lidocaine subcutaneously. Subsequently, a 20-gauge Tuohy epidural needle was inserted and advanced toward the epidural space using the ``Loss of resistance technique and guided by AP and lateral fluoroscopy. The correct needle position in the epidural space was verified with the injection of 2 mL of the water soluble contrast dye Isovue 200 contrast and observing an excellent epidurogram with the epidural spread of the dye, after negative aspiration for blood and CSF and in the absence of paresthesias. Again after negative aspiration, a 6 ml mixture containing 80 mg of Depo-medrol , and 2 ml of preservative free Normal Saline, and 2 ml of preservative free lidocaine 1% solution was injected and a washout of epidurogram was seen. Needle was withdrawn intact, skin was cleansed, and bandages were applied. COMPLICATIONS: None DISPOSITION / PLANS: The patient was placed in a supine position and transferred to the recovery area in a stable condition for observation. There was no evidence of lower extremity motor or sensory deficit after the procedure. Patient was discharged from the recovery room after meeting discharge criteria. Home discharge instructions were given to the patient by the staff. The patient was reexamined prior to discharge. The patient will schedule a follow up in the clinic in 2-4 weeks.
[2022-04-02] MEDS ORDERED: IV FLUID CONTINUATION 850 ML IV ONE (13:51)
[2022-04-02 13:58] VITALS: RESP 16
--- NOTE | 2022-04-02 14:02 | FL ---
Fluoroscopy INDICATION: Pain FINDINGS: Fluoroscopy time: 1 seconds. Images obtained: 1. IMPRESSIONS: 1. Documentation of fluoroscopy.
[2022-04-02 14:04] VITALS: BP 154/70; PULSE 70
== END 2022-04-02 14:17 | disposition home or self-care (01) ==
LOC: ORPAIN 12:46
PROVIDERS: ATTEND Specialist
DX: M47.26 Other spondylosis with radiculopathy, lumbar region (principal); M51.16 Intervertebral disc disorders with radiculopathy, lumbar region; Z88.5 Allergy status to narcotic agent
CPT/HCPCS: 62323; J2250; J1040; J3010; Q9966

== ENCOUNTER → 2022-07-02 | Outpatient (CLI) | payer MEDICARE, OTHER ==
--- NOTE | 2022-07-02 16:33 | CT ---
EXAMINATION TYPE: CT chest wo con CT DLP: 499 mGycm, Automated exposure control for dose reduction was used. DATE OF EXAM: 07/02/2022 4:13 PM COMPARISON: CT of the chest with most recent on 09/04/2021. CLINICAL INDICATION:Male, 46 years old with history of J44.9 copd moderate; , COPD TECHNIQUE: Multiple axial images were obtained through the chest. Sagittal and coronal reformats were created for review. Contrast used: none. Oral contrast used: none. FINDINGS: LUNGS/ PLEURA: Moderate centrilobular emphysema changes. No evidence of focal consolidation, pneumoth orax or pleural effusion. No suspicious pulmonary nodules. AIRWAY: Patent and unremarkable. HEART: Size within normal limits. MEDIASTINUM: No gross evidence of adenopathy. VASCULATURE: No aortic aneurysm. Mild atherosclerosis of the arterial vasculature. MUSCULOSKELETAL: No acute osseous abnormalities, multilevel disc degeneration changes throughout the spine. SOFT TISSUES/LYMPH NODES: Unremarkable. LOWER NECK: No significant findings. UPPER ABDOMEN: No significant findings. IMPRESSION: 1. Moderate emphysema changes throughout the lungs. 2. No evidence for acute process.
== END | disposition home or self-care (01) ==
LOC: RADCTMAIN 15:29
PROVIDERS: ATTEND Family Medicine
DX: J43.9 Emphysema, unspecified (principal)
CPT/HCPCS: 71250

== ENCOUNTER 2022-12-28 21:36 | Emergency (ER) | payer MEDICARE ==
[2022-12-28 21:47] VITALS: RESP 16; TEMP 97.5
[2022-12-28] MEDS ORDERED: KETOROLAC 15 MG/ML 1 ML VIAL IVP STA (21:55)
--- NOTE | 2022-12-28 22:02 | ED ---
General Adult HPI - General Chief complaint: Abdominal Pain Stated complaint: Right Side Chest Pain Time Seen by Provider: 12/28/22 21:41 Source: patient, EMS Mode of arrival: EMS Limitations: no limitations - History of Present Illness Initial comments: This is a 47-year-old male with a past medical history including hypertension and hyperlipidemia presents emergency department via EMS for bilateral lower chest pain, upper bilateral abdominal pain. The patient stated "everybody is trying to mess with me and gives be going and now I had this pain." The patient stated that he has had this pain over the last 3 days but worsened after stressful situations at home. The patient stated that this pain is persistent and is focused across the bilateral lower ribs. The patient denied any radiation of the pain and denied any nausea or vomiting. The patient also denied any fevers, chills. The patient was resting in bed comfortably. - Related Data Home Medications Medication Instructions Recorded Confirmed Acetaminophen Tab [Tylenol Tab] 500 mg PO BID PRN 12/10/22 12/10/22 Albuterol Inhaler [Ventolin Hfa 1 - 2 puff INHALATION RT-Q6H PRN 12/10/22 12/10/22 Inhaler] Atorvastatin [Lipitor] 10 mg PO HS 12/10/22 12/10/22 Celecoxib [CeleBREX] 100 mg PO BID 12/10/22 12/10/22 Folic Acid 1 mg PO DAILY 12/10/22 12/10/22 Gabapentin 600 mg PO TID 12/10/22 12/10/22 HYDROcodone/APAP 7.5-325MG [[place] 1 tab PO BID PRN 12/10/22 12/10/22 7.5-325] Losartan Potassium 50 mg PO DAILY 12/10/22 12/10/22 Omeprazole 40 mg PO DAILY 12/10/22 12/10/22 Sucralfate [Carafate] 1 gm PO BID 12/10/22 12/10/22 Tamsulosin [Flomax] 0.8 mg PO HS 12/10/22 12/10/22 busPIRone HCL 15 mg PO TID 12/10/22 12/10/22 carvediloL [Coreg] 6.25 mg PO BID 12/10/22 12/10/22 hydrOXYzine HCL [Atarax] 50 mg PO DAILY PRN 12/10/22 12/10/22 tiZANidine [Zanaflex] 4 mg PO Q8HR PRN 12/10/22 12/10/22 Allergies Allergy/AdvReac Type Severity Reaction Status Date / Time tramadol Allergy Severe Itching Verified 12/10/22 17:11 hydromorphone [From Dilaudid] AdvReac Confusion Verified 12/10/22 17:11 Review of Systems ROS Statement: Those systems with pertinent positive or pertinent negative responses have been documented in the HPI. ROS Other: All systems not noted in ROS Statement are negative. Past Medical History Past Medical History: Coronary Artery Disease (CAD), Chest Pain / Angina, Hyperlipidemia, Hypertension, Myocardial Infarction (CT) Additional Past Medical History / Comment(s): Recent bronchitis Last Myocardial Infarction Date:: 2020 History of Any Multi-Drug Resistant Organisms: None Reported Past Surgical History: Cholecystectomy, Heart Catheterization Past Anesthesia/Blood Transfusion Reactions: No Reported Reaction Additional Past Anesthesia/Blood Transfusion Reaction / Comment(s): Pt has never had surgery. Past Psychological History: Anxiety, Bipolar, Depression, Panic Disorder Smoking Status: Current every day smoker Past Alcohol Use History: None Reported, Daily, Heavy Past Drug Use History: Marijuana - Past Family History Father Family Medical History: Myocardial Infarction (CT) Additional Family Medical History / Comment(s): Father of a CT at the age of 41 yrs. Mother Family Medical History: Diabetes Mellitus General Exam Limitations: no limitations General appearance: alert, in no apparent distress Head exam: Present: atraumatic, normocephalic, normal inspection Eye exam: Present: normal appearance, PERRL Pupils: Present: normal accommodation ENT exam: Present: normal exam, normal oropharynx, mucous membranes moist Neck exam: Present: normal inspection, full ROM Respiratory exam: Present: normal lung sounds bilaterally Cardiovascular Exam: Present: regular rate, normal rhythm, normal heart sounds GI/Abdominal exam: Present: soft, normal bowel sounds Extremities exam: Present: normal inspection, full ROM Back exam: Present: normal inspection, full ROM Neurological exam: Present: alert, oriented X3, CN II-XII intact Psychiatric exam: Present: normal affect, normal mood Skin exam: Present: warm, dry Course Vital Signs 12/28/22 12/28/22 21:41 23:25 Temperature 97.5 F L Pulse Rate 95 87 Respiratory 16 16 Rate Blood Pressure 177/102 148/94 O2 Sat by Pulse 99 95 Oximetry EKG Findings - EKG Comments: EKG Findings:: An EKG was obtained and was interpreted by myself showing a rate of 90, DC interval 140, QRS duration of 89 and QTC of 383. This EKG showed a normal sinus rhythm with no ST segment elevation or depression noted. Medical Decision Making - Medical Decision Making Was pt. sent in by a medical professional or institution (, [facility], CHAIN CARRIER, urgent care, hospital, or assisted...) When possible be specific @ -No Did you speak to anyone other than the patient for history (EMS, parent, family, police, friend...)? What history was obtained from this source @ -No Did you review nursing and triage notes (agree or disagree)? Why? @ -I reviewed and agree with nursing and triage notes Were old charts reviewed (outside hosp., previous admission, EMS record, old EKG, old radiological studies, urgent care reports/EKG's, assisted records)? Report findings @ -No old charts were reviewed Differential Diagnosis (chest pain, altered mental status, abdominal pain women, abdominal pain men, vaginal bleeding, weakness, fever, dyspnea, syncope, headache, dizziness, GI bleed, back pain, seizure, CVA, palpatations, mental health)? @ -Pancreatitis, gastroenteritis, abdominal muscle strain EKG interpreted by me (3pts min.). @ -As above X-rays interpreted by me (1pt min.). @ -Chest x-ray was obtained and was interpreted by myself showing no acute process. CT interpreted by me (1pt min.). @ -None done U/S interpreted by me (1pt. min.). @ -None done What testing was considered but not performed or refused? (CT, X-rays, U/S, labs)? Why? @ -None What meds were considered but not given or refused? Why? @ -None Did you discuss the management of the patient with other professionals (professionals i.e. [facility] Pratt, CHAIN CARRIER, lab, RT, psych nurse, social staff worker, drag sawyer, teacher, pharmaceutical officer, pillowcase maker)? Give summary @ -No Was smoking cessation discussed for >3mins.? @ -Yes Was critical care preformed (if so, how long)? @ -No Were there social determinants of health that impacted care today? How? (Homelessness, low income, unemployed, alcoholism, drug addiction, transportation, low edu. Level, literacy, decrease access to med. care, snf, rehab)? @ -No Was there de-escalation of care discussed even if they declined (Discuss DNR or withdrawal of care, Hospice)? DNR status @ -No What co-morbidities impacted this encounter? (DM, HTN, Smoking, COPD, CAD, Cancer, CVA, ARF, Chemo, Hep., AIDS, mental health diagnosis, sleep apnea, morbid obesity)? @ -Hypertension, hyperlipidemia Was patient admitted / discharged? Hospital course, mention meds given and route, prescriptions, significant lab abnormalities, going to OR and other pertinent info. @ -The patient was seen and evaluated in the emergency department. Physical exam, the patient was resting in bed without any acute distress. Vital signs were stable. All laboratory workup and workup was negative. The patient had vague symptoms and likely had abdominal pain, NOS. The patient also had improvement after Toradol was given. The patient was stable for discharge and was advised to follow-up with his primary care physician for further workup and evaluation. The patient was agreeable to this and all discretions were answered reportedly. The patient was discharged home in stable condition. Undiagnosed new problem with uncertain prognosis? @ -No Drug Therapy requiring intensive monitoring for toxicity (Heparin, Nitro, Insulin, Cardizem)? @ -No Were any procedures done? @ -No Diagnosis/symptom? @ -Abdominal pain, NOS Acute, or Chronic, or Acute on Chronic? @ -Acute Uncomplicated (without systemic symptoms) or Complicated (systemic symptoms)? @ -Uncomplicated Side effects of treatment? @ -No Exacerbation, Progression, or Severe Exacerbation? @ -No Poses a threat to life or bodily function? How? (Chest pain, USA, CT, pneumonia, PE, COPD, DKA, ARF, appy, cholecystitis, CVA, Diverticulitis, Homicidal, Suicidal, threat to staff... and all critical care pts) @ -No - Lab Data Result diagrams: 12/28/22 22:05 12/28/22 22:05 Lab Results 12/28/22 12/28/22 12/28/22 Range/Units 22:05 22:05 22:05 WBC 8.6 (3.8-10.6) k/uL RBC 4.89 (4.30-5.90) m/uL Hgb 14.2 (13.0-17.5) gm/dL Hct 42.7 (39.0-53.0) % MCV 87.3 (80.0-100.0) fL MCH 29.0 (25.0-35.0) pg MCHC 33.2 (31.0-37.0) g/dL RDW 13.0 (11.5-15.5) % Plt Count 270 (150-450) k/uL MPV 7.7 Neutrophils % 55 % Lymphocytes % 35 % Monocytes % 5 % Eosinophils % 2 % Basophils % 0 % Neutrophils # 4.7 (1.3-7.7) k/uL Lymphocytes # 3.1 (1.0-4.8) k/uL Monocytes # 0.4 (0-1.0) k/uL Eosinophils # 0.2 (0-0.7) k/uL Basophils # 0.0 (0-0.2) k/uL Sodium 134 L (137-145) mmol/L Potassium 4.4 (3.5-5.1) mmol/L Chloride 102 (98-107) mmol/L Carbon Dioxide 24 (22-30) mmol/L Anion Gap 8 mmol/L BUN 9 (9-20) mg/dL Creatinine 0.75 (0.66-1.25) mg/dL Est GFR (CKD-EPI)AfAm >90 (>60 ml/min/1.73 sqM) Est GFR (CKD-EPI)NonAf >90 (>60 ml/min/1.73 sqM) Glucose 89 (74-99) mg/dL Calcium 9.7 (8.4-10.2) mg/dL Magnesium 1.8 (1.6-2.3) mg/dL Total Bilirubin 0.6 (0.2-1.3) mg/dL AST 25 (17-59) U/L ALT 27 (4-49) U/L Alkaline Phosphatase 86 (38-126) U/L Troponin I 0.012 (0.000-0.034) ng/mL Total Protein 7.6 (6.3-8.2) g/dL Albumin 4.8 (3.5-5.0) g/dL Lipase 57 (23-300) U/L Disposition Clinical Impression: Abdominal pain Disposition: HOME SELF-CARE Condition: Stable Instructions (If sedation given, give patient instructions): Abdominal Pain (ED) Is patient prescribed a controlled substance at d/c from ED?: No Referrals: None,Stated [REFERRING] - 1-2 days Time of Disposition: 23:05
[2022-12-28 22:18] LABS: Basophils % (A) 0 %; Eosinophils # (A) 0.2 k/uL (0-0.7); Eosinophils % (A) 2 %; HCT 42.7 % (39.0-53.0); HGB 14.2 gm/dL (13.0-17.5); Lymphocytes # (A) 3.1 k/uL (1.0-4.8); Lymphocytes % (A) 35 %; MCHC 33.2 g/dL (31.0-37.0); MCV 87.3 fL (80.0-100.0); Mean Platelet Volume 7.7; Monocytes # (A) 0.4 k/uL (0-1.0); Monocytes % (A) 5 %; Neutrophils # (A) 4.7 k/uL (1.3-7.7); Neutrophils % (A) 55 %; Platelet Count 270 k/uL (150-450); RBC 4.89 m/uL (4.30-5.90); WBC 8.6 k/uL (3.8-10.6)
--- NOTE | 2022-12-28 22:39 | XR ---
EXAMINATION TYPE: XR chest 2V DATE OF EXAM: 12/28/2022 COMPARISON: 12/01/2022 HISTORY: Chest pain TECHNIQUE: FINDINGS: Heart and mediastinum are normal. Lungs are clear. Diaphragm is normal. Bony thorax appears normal. IMPRESSION: Normal chest. No change.
[2022-12-28 22:45] LABS: ALT 27 U/L (4-49); AST 25 U/L (17-59); African American GFR (CKD) >90 (>60 ml/min/1.73 sqM); Albumin 4.8 g/dL (3.5-5.0); Alkaline Phosphatase 86 U/L (38-126); Anion Gap 8 mmol/L; Blood Urea Nitrogen 9 mg/dL (9-20); Calcium 9.7 mg/dL (8.4-10.2); Carbon Dioxide 24 mmol/L (22-30); Chloride 102 mmol/L (98-107); Glucose 89 mg/dL (74-99); Lipase 57 U/L (23-300); Magnesium 1.8 mg/dL (1.6-2.3); Non-African American GFR(CKD) >90 (>60 ml/min/1.73 sqM); Potassium 4.4 mmol/L (3.5-5.1); Sodium 134 mmol/L (137-145); Total Bilirubin 0.6 mg/dL (0.2-1.3); Total Protein 7.6 g/dL (6.3-8.2)
[2022-12-28 23:46] VITALS: BP 148/94; PULSE 87
== END 2022-12-28 23:46 | disposition home or self-care (01) ==
LOC: EC 21:36
DX: R10.9 Unspecified abdominal pain (principal); I10 Essential (primary) hypertension; I25.10 Atherosclerotic heart disease of native coronary artery without angina pectoris; I25.2 Old myocardial infarction; F31.9 Bipolar disorder, unspecified; F41.9 Anxiety disorder, unspecified; E78.5 Hyperlipidemia, unspecified; F17.200 Nicotine dependence, unspecified, uncomplicated; Z90.49 Acquired absence of other specified parts of digestive tract; Z79.1 Long term (current) use of non-steroidal anti-inflammatories (NSAID); Z79.899 Other long term (current) drug therapy; Z88.5 Allergy status to narcotic agent; Z88.8 Allergy status to other drugs, medicaments and biological substances
CPT/HCPCS: 36415; 93005; 80053; 83690; 83735; 84484; 85025; 71046; 99284; 96374; J1885

== ENCOUNTER 2023-02-03 08:50 | Emergency (ER) | payer MEDICARE, OTHER ==
[2023-02-03 08:55] VITALS: TEMP 98.1
[2023-02-03] MEDS ORDERED: LORazepam 1 MG TAB PO STA ×2 (09:04→09:50)
--- NOTE | 2023-02-03 09:06 | ED ---
General Adult HPI - General Chief complaint: Psychiatric Symptoms Stated complaint: MENTAL HEALTH Time Seen by Provider: 02/03/23 08:56 Source: patient, RN notes reviewed, old records reviewed Mode of arrival: ambulatory Limitations: no limitations - History of Present Illness Initial comments: 47-year-old male presenting with insomnia, anxiety. Initially patient denies suicidal or homicidal ideation but throughout the initial evaluation he does indicate that if something doesn't change he might hurt someone. He denies alcohol. Denies illicit drugs. - Related Data Home Medications Medication Instructions Recorded Confirmed Acetaminophen Tab [Tylenol Tab] 500 mg PO BID PRN 12/10/22 02/03/23 Albuterol Inhaler [Ventolin Hfa 1 - 2 puff INHALATION RT-Q6H PRN 12/10/22 02/03/23 Inhaler] Celecoxib [CeleBREX] 100 mg PO BID 12/10/22 02/03/23 Folic Acid 1 mg PO DAILY 12/10/22 02/03/23 Gabapentin 600 mg PO TID 12/10/22 02/03/23 HYDROcodone/APAP 7.5-325MG [[place] 1 tab PO BID PRN 12/10/22 02/03/23 7.5-325] Omeprazole 40 mg PO DAILY 12/10/22 02/03/23 Sucralfate [Carafate] 1 gm PO BID 12/10/22 02/03/23 Tamsulosin [Flomax] 0.8 mg PO HS 12/10/22 02/03/23 busPIRone HCL 15 mg PO TID 12/10/22 02/03/23 carvediloL [Coreg] 6.25 mg PO BID 12/10/22 02/03/23 hydrOXYzine HCL [Atarax] 50 mg PO DAILY PRN 12/10/22 02/03/23 tiZANidine [Zanaflex] 4 mg PO Q8HR PRN 12/10/22 02/03/23 Atorvastatin [Lipitor] 40 mg PO HS 02/03/23 02/03/23 Losartan Potassium [Cozaar] 100 mg PO DAILY 02/03/23 02/03/23 amLODIPine [Norvasc] 5 mg PO DAILY 02/03/23 02/03/23 Previous Rx's Medication Instructions Recorded LORazepam [Ativan] 1 mg PO HS 3 Days #3 tab 02/03/23 Allergies Allergy/AdvReac Type Severity Reaction Status Date / Time tramadol Allergy Severe Itching Verified 02/03/23 10:13 hydromorphone [From Dilaudid] AdvReac Confusion Verified 02/03/23 10:13 Review of Systems ROS Statement: Those systems with pertinent positive or pertinent negative responses have been documented in the HPI. ROS Other: All systems not noted in ROS Statement are negative. Past Medical History Past Medical History: Coronary Artery Disease (CAD), Chest Pain / Angina, Hyperlipidemia, Hypertension, Myocardial Infarction ([place]) Additional Past Medical History / Comment(s): Recent bronchitis Last Myocardial Infarction Date:: 2020 History of Any Multi-Drug Resistant Organisms: None Reported Past Surgical History: Cholecystectomy, Heart Catheterization Past Anesthesia/Blood Transfusion Reactions: No Reported Reaction Additional Past Anesthesia/Blood Transfusion Reaction / Comment(s): Pt has never had surgery. Past Psychological History: Anxiety, Bipolar, Depression, Panic Disorder Smoking Status: Current every day smoker Past Alcohol Use History: None Reported, Daily, Heavy Past Drug Use History: Marijuana - Past Family History Father Family Medical History: Myocardial Infarction ([place]) Additional Family Medical History / Comment(s): Father of a [place] at the age of 41 yrs. Mother Family Medical History: Diabetes Mellitus General Exam Limitations: no limitations General appearance: alert, in no apparent distress Head exam: Present: atraumatic, normocephalic Eye exam: Present: normal appearance, PERRL ENT exam: Present: normal exam Neck exam: Present: normal inspection. Absent: tenderness, meningismus Respiratory exam: Present: normal lung sounds bilaterally. Absent: respiratory distress, wheezes Cardiovascular Exam: Present: regular rate GI/Abdominal exam: Present: soft. Absent: distended, tenderness, guarding Neurological exam: Present: alert, oriented X3, CN II-XII intact. Absent: motor sensory deficit Psychiatric exam: Present: agitated, anxious, other (States "he might hurt somebody") Skin exam: Present: warm, dry, intact Course Vital Signs 02/03/23 08:53 Temperature 98.1 F Pulse Rate 114 H Respiratory 20 Rate Blood Pressure 161/87 O2 Sat by Pulse 97 Oximetry - Reevaluation(s) Reevaluation #1: 02/03/23 09:05 Cleared for EPS. Medical Decision Making - Medical Decision Making Was pt. sent in by a medical professional or institution ([facility], SOCIAL SERVICE MANAGER, urgent care, hospital, or group home...) When possible be specific @ -No Did you speak to anyone other than the patient for history (EMS, parent, family, police, friend...)? What history was obtained from this source @ -No Did you review nursing and triage notes (agree or disagree)? Why? @ -I reviewed and agree with nursing and triage notes Were old charts reviewed (outside hosp., previous admission, EMS record, old EKG, old radiological studies, urgent care reports/EKG's, group home records)? Report findings @ -No old charts were reviewed Differential Diagnosis (chest pain, altered mental status, abdominal pain women, abdominal pain men, vaginal bleeding, weakness, fever, dyspnea, syncope, headache, dizziness, GI bleed, back pain, seizure, CVA, palpatations, mental health, musculoskeletal)? @ -Differential Mental Health Depression, anxiety, bipolar, psychosis, schizophrenia, borderline personality, situational depression, adjustment disorder, behavioral disorder, brain tumor, malingering, substance abuse, encephalopathy, medication reaction, dementia, hypothyroidism, degenerative neurologic disorder, lupus.... This is not meant to be all-inclusive list EKG interpreted by me (3pts min.). @ -As above X-rays interpreted by me (1pt min.). @ -None done CT interpreted by me (1pt min.). @ -None done U/S interpreted by me (1pt. min.). @ -None done What testing was considered but not performed or refused? (CT, X-rays, U/S, labs)? Why? @ -None What meds were considered but not given or refused? Why? @ -None Did you discuss the management of the patient with other professionals (professionals i.e. [facility] Pratt, SOCIAL SERVICE MANAGER, lab, RT, psych nurse, social professionals, director emergency department, teacher, bomb squad officer, family caseworker)? Give summary @ -EPS nurse Was smoking cessation discussed for >3mins.? @ -No Was critical care preformed (if so, how long)? @ -No Were there social determinants of health that impacted care today? How? (Homelessness, low income, unemployed, alcoholism, drug addiction, transportation, low edu. Level, literacy, decrease access to med. care, halfway, rehab)? @ -No Was there de-escalation of care discussed even if they declined (Discuss DNR or withdrawal of care, Hospice)? DNR status @ -No What co-morbidities impacted this encounter? (DM, HTN, Smoking, COPD, CAD, Cancer, CVA, ARF, Chemo, Hep., AIDS, mental health diagnosis, sleep apnea, morbid obesity)? @ -Depression and anxiety Was patient admitted / discharged? Hospital course, mention meds given and route, prescriptions, significant lab abnormalities, going to OR and other pertinent info. @ -47-year-old male presenting for mental health evaluation, patient has issues with anger and anxiety. He was medically cleared and evaluated by EPS and felt to be safe for discharge. He has an appointment with his primary care physician tomorrow. Undiagnosed new problem with uncertain prognosis? @ -No Drug Therapy requiring intensive monitoring for toxicity (Heparin, Nitro, Insulin, Cardizem)? @ -No Were any procedures done? @ -No Diagnosis/symptom? @Anxiety Acute, or Chronic, or Acute on Chronic? @Acute Uncomplicated (without systemic symptoms) or Complicated (systemic symptoms)? @Complicated - Lab Data Lab Results 02/03/23 Range/Units 09:57 Urine Opiates Screen Not Detected (NotDetected) Ur Oxycodone Screen Not Detected (NotDetected) Urine Methadone Screen Not Detected (NotDetected) Ur Propoxyphene Screen Not Detected (NotDetected) Ur Barbiturates Screen Not Detected (NotDetected) U Tricyclic Antidepress Not Detected (NotDetected) Ur Phencyclidine Scrn Not Detected (NotDetected) Ur Amphetamines Screen Not Detected (NotDetected) U Methamphetamines Scrn Not Detected (NotDetected) U Benzodiazepines Scrn Not Detected (NotDetected) Urine Cocaine Screen Not Detected (NotDetected) U Marijuana (THC) Screen Detected H (NotDetected) Disposition Clinical Impression: Depression, Acute anxiety Disposition: HOME SELF-CARE Condition: Fair Instructions (If sedation given, give patient instructions): Anxiety (ED) Additional Instructions: Please maintain her appointment with her primary care provider tomorrow Prescriptions: LORazepam [Ativan] 1 mg PO HS 3 Days #3 tab Is patient prescribed a controlled substance at d/c from ED?: No Referrals: None,Stated [REFERRING] - 1-2 days Time of Disposition: 11:56
[2023-02-03 11:01] LABS: Amphetamine Screen,Urine Not Detected (NotDetected); Barbiturate Screen,Urine Not Detected (NotDetected); Benzodiazepines Screen,Urine Not Detected (NotDetected); Cocaine Screen,Urine Not Detected (NotDetected); Methadone Screen, Urine Not Detected (NotDetected); Opiate Screen,Urine Not Detected (NotDetected); Oxycodone Screen, Urine Not Detected (NotDetected); Phencyclidine Screen,Urine Not Detected (NotDetected); Tricyclic Antidepressant,Urine Not Detected (NotDetected); Urn Cannabinoid Scrn Detected (NotDetected)
[2023-02-03 12:37] VITALS: BP 155/88; PULSE 110; RESP 18
== END 2023-02-03 12:38 | disposition home or self-care (01) ==
LOC: EC 08:50
DX: F41.9 Anxiety disorder, unspecified (principal); F31.9 Bipolar disorder, unspecified; I10 Essential (primary) hypertension; I25.10 Atherosclerotic heart disease of native coronary artery without angina pectoris; I25.2 Old myocardial infarction; E78.5 Hyperlipidemia, unspecified; F17.200 Nicotine dependence, unspecified, uncomplicated; F12.90 Cannabis use, unspecified, uncomplicated; Z79.1 Long term (current) use of non-steroidal anti-inflammatories (NSAID); Z79.899 Other long term (current) drug therapy; Z88.5 Allergy status to narcotic agent; Z88.8 Allergy status to other drugs, medicaments and biological substances; Z90.49 Acquired absence of other specified parts of digestive tract
CPT/HCPCS: 80306; 82075; 99284

== ENCOUNTER 2023-03-24 14:49 | Emergency (ER) | payer MEDICARE ==
[2023-03-24 15:25] LABS: Basophils % (A) 0 %; Eosinophils # (A) 0.1 k/uL (0-0.7); Eosinophils % (A) 1 %; HCT 44.8 % (39.0-53.0); Lymphocytes # (A) 2.1 k/uL (1.0-4.8); Lymphocytes % (A) 21 %; MCH 29.8 pg (25.0-35.0); MCHC 33.5 g/dL (31.0-37.0); MCV 88.9 fL (80.0-100.0); Mean Platelet Volume 7.5; Monocytes # (A) 0.4 k/uL (0-1.0); Monocytes % (A) 4 %; Neutrophils # (A) 7.4 k/uL (1.3-7.7); Neutrophils % (A) 73 %; Platelet Count 282 k/uL (150-450); RBC 5.03 m/uL (4.30-5.90); WBC 10.2 k/uL (3.8-10.6)
[2023-03-24 15:30] LABS: Appearance,Urine Clear (Clear); Bilirubin,Urine Negative (Negative); Blood,Urine Negative (Negative); Color,Urine Light Yellow; Glucose,Urine (UA) Negative (Negative); Ketones,Urine Negative (Negative); Leukocyte Esterase,Urine Negative (Negative); Nitrite,Urine Negative (Negative); Protein,Urine Negative (Negative); Specific Gravity,Urine 1.005 (1.001-1.035); Urobilinogen,Urine <2.0 mg/dL (<2.0)
[2023-03-24 15:37] LABS: Partial Thromboplastin Time 23.7 sec (22.0-30.0); Prothrombin Time 10.2 sec (9.0-12.0)
--- NOTE | 2023-03-24 15:42 | XR ---
EXAMINATION TYPE: XR chest 2V DATE OF EXAM: 03/24/2023 COMPARISON: 12/28/2022 INDICATION: Chest pain TECHNIQUE: Frontal and lateral views of the chest are obtained. FINDINGS: The heart size is normal. The pulmonary vasculature is normal. The lungs are clear. Good inspiratory effort is present. IMPRESSION: 1. No acute pulmonary process.
[2023-03-24 15:48] LABS: Amphetamine Screen,Urine Not Detected (NotDetected); Barbiturate Screen,Urine Not Detected (NotDetected); Benzodiazepines Screen,Urine Not Detected (NotDetected); Cocaine Screen,Urine Not Detected (NotDetected); Methadone Screen, Urine Not Detected (NotDetected); Opiate Screen,Urine Not Detected (NotDetected); Oxycodone Screen, Urine Not Detected (NotDetected); Phencyclidine Screen,Urine Not Detected (NotDetected); Tricyclic Antidepressant,Urine Not Detected (NotDetected); Urn Cannabinoid Scrn Detected (NotDetected)
[2023-03-24 15:48] LABS: ALT 27 U/L (4-49); AST 32 U/L (17-59); African American GFR (CKD) >90 (>60 ml/min/1.73 sqM); Albumin 5.3 g/dL (3.5-5.0); Alkaline Phosphatase 97 U/L (38-126); Anion Gap 15 mmol/L; Blood Urea Nitrogen 10 mg/dL (9-20); Calcium 10.2 mg/dL (8.4-10.2); Carbon Dioxide 19 mmol/L (22-30); Chloride 102 mmol/L (98-107); Glucose 102 mg/dL (74-99); Magnesium 1.7 mg/dL (1.6-2.3); Non-African American GFR(CKD) >90 (>60 ml/min/1.73 sqM); Sodium 136 mmol/L (137-145); Total Bilirubin 0.7 mg/dL (0.2-1.3); Total Protein 8.7 g/dL (6.3-8.2)
--- NOTE | 2023-03-24 17:34 | ED ---
Chest Pain HPI - General Chief Complaint: Chest Pain Stated Complaint: Chest pain Time Seen by Provider: 03/24/23 16:58 Source: patient Mode of arrival: ambulatory Limitations: no limitations - History of Present Illness Initial Comments: This patient is a 47-year-old man who presents with the complaint that he believes he is having withdrawal from [place]. Patient had been taking [place] 7.5 mg and how this was abruptly not renewed by his physician. The patient states she is having body aches particularly his chest wall seems tender. The patient has upset stomach, some diarrhea as well without blood or tarry stools. He is feeling anxious and not able to sleep. MD Complaint: chest pain -: days(s) Pain Location: left chest, right chest Pain Radiation: none Severity: moderate Quality: aching Consistency: constant Improves With: nothing Worsens With: palpation, movement Anginal Symptoms: nausea - Related Data Home Medications Medication Instructions Recorded Confirmed Acetaminophen Tab [Tylenol Tab] 500 mg PO BID PRN 12/10/22 02/03/23 Albuterol Inhaler [Ventolin Hfa 1 - 2 puff INHALATION RT-Q6H PRN 12/10/22 02/03/23 Inhaler] Celecoxib [CeleBREX] 100 mg PO BID 12/10/22 02/03/23 Folic Acid 1 mg PO DAILY 12/10/22 02/03/23 Gabapentin 600 mg PO TID 12/10/22 02/03/23 HYDROcodone/APAP 7.5-325MG [[place] 1 tab PO BID PRN 12/10/22 02/03/23 7.5-325] Omeprazole 40 mg PO DAILY 12/10/22 02/03/23 Sucralfate [Carafate] 1 gm PO BID 12/10/22 02/03/23 Tamsulosin [Flomax] 0.8 mg PO HS 12/10/22 02/03/23 busPIRone HCL 15 mg PO TID 12/10/22 02/03/23 carvediloL [Coreg] 6.25 mg PO BID 12/10/22 02/03/23 hydrOXYzine HCL [Atarax] 50 mg PO DAILY PRN 12/10/22 02/03/23 tiZANidine [Zanaflex] 4 mg PO Q8HR PRN 12/10/22 02/03/23 Atorvastatin [Lipitor] 40 mg PO HS 02/03/23 02/03/23 Losartan Potassium [Cozaar] 100 mg PO DAILY 02/03/23 02/03/23 amLODIPine [Norvasc] 5 mg PO DAILY 02/03/23 02/03/23 Previous Rx's Medication Instructions Recorded LORazepam [Ativan] 1 mg PO HS 3 Days #3 tab 02/03/23 LORazepam [Ativan] 1 mg PO TID 3 Days #9 tab 03/24/23 Promethazine [Phenergan] 25 mg PO Q6HR PRN #12 tablet 03/24/23 cloNIDine HCL [Catapres] 0.1 mg PO TID #9 tab 03/24/23 Allergies Allergy/AdvReac Type Severity Reaction Status Date / Time tramadol Allergy Severe Itching Verified 04/01/23 19:21 hydromorphone [From Dilaudid] AdvReac Confusion Verified 04/01/23 19:21 Review of Systems ROS Statement: Those systems with pertinent positive or pertinent negative responses have been documented in the HPI. ROS Other: All systems not noted in ROS Statement are negative. Constitutional: Reports: weakness. Denies: fever, chills Respiratory: Denies: cough, dyspnea Cardiovascular: Reports: as per HPI, chest pain. Denies: palpitations, dyspnea on exertion Gastrointestinal: Reports: abdominal pain, nausea, diarrhea. Denies: vomiting, constipation, melena, hematochezia Genitourinary: Denies: dysuria, hematuria Musculoskeletal: Denies: back pain Skin: Denies: rash Neurological: Reports: headache. Denies: weakness EKG Findings - EKG Results: EKG: interpreted by RUBI CALDWELL, sinus rhythm (Rate 83 bpm), normal axis, normal QRS, normal ST/T, no acute changes - CA, Pacemaker, Normal: Normal tracing: normal tracing Past Medical History Past Medical History: Coronary Artery Disease (CAD), Chest Pain / Angina, Hyperlipidemia, Hypertension, Myocardial Infarction (CA) Additional Past Medical History / Comment(s): Recent bronchitis Last Myocardial Infarction Date:: 2020 History of Any Multi-Drug Resistant Organisms: None Reported Past Surgical History: Cholecystectomy, Heart Catheterization Past Anesthesia/Blood Transfusion Reactions: No Reported Reaction Additional Past Anesthesia/Blood Transfusion Reaction / Comment(s): Pt has never had surgery. Past Psychological History: Anxiety, Bipolar, Depression, Panic Disorder Smoking Status: Current every day smoker Past Alcohol Use History: None Reported, Daily, Heavy Past Drug Use History: Marijuana - Past Family History Father Family Medical History: Myocardial Infarction (CA) Additional Family Medical History / Comment(s): Father of a CA at the age of 41 yrs. Mother Family Medical History: Diabetes Mellitus General Exam Limitations: no limitations General appearance: alert, in no apparent distress Head exam: Present: atraumatic, normocephalic Eye exam: Present: normal appearance. Absent: scleral icterus, conjunctival injection Neck exam: Present: normal inspection Respiratory exam: Present: normal lung sounds bilaterally, chest wall tenderness. Absent: respiratory distress, wheezes, rales, rhonchi, stridor Cardiovascular Exam: Present: regular rate, normal rhythm, normal heart sounds. Absent: systolic murmur, diastolic murmur, rubs, gallop GI/Abdominal exam: Present: soft. Absent: distended, tenderness, guarding, rebound, rigid, mass Extremities exam: Present: normal inspection, normal capillary refill. Absent: pedal edema, calf tenderness Back exam: Present: normal inspection. Absent: CVA tenderness (R), CVA tenderness (L) Neurological exam: Present: alert Skin exam: Present: warm, dry, intact, normal color. Absent: rash Course Vital Signs 03/24/23 03/24/23 14:57 18:03 Temperature 98 F 97.9 F Pulse Rate 93 108 H Respiratory 16 20 Rate Blood Pressure 136/68 186/101 O2 Sat by Pulse 95 97 Oximetry Chest Pain MDM - MDM This patient is a 47-year-old man who presents with a number symptoms insistent with opioid withdrawal. Discussed appropriate further care and follow-up with the patient and did prescribe some medications with the goal of symptomatic reli ef. Was pt. sent in by a medical professional or institution (, PA, [facility], urgent care, hospital, or penitentiary...) When possible be specific @ -[No] Did you speak to anyone other than the patient for history (EMS, parent, family, police, friend...)? What history was obtained from this source @ -[No] Did you review nursing and triage notes (agree or disagree)? Why? @ -[I reviewed and agree with nursing and triage notes] Were old charts reviewed (outside hosp., previous admission, EMS record, old EKG, old radiological studies, urgent care reports/EKG's, penitentiary records)? Report findings @ -[No old charts were reviewed] Differential Diagnosis (chest pain, altered mental status, abdominal pain women, abdominal pain men, vaginal bleeding, weakness, fever, dyspnea, syncope, headache, dizziness, GI bleed, back pain, seizure, CVA, palpatations, mental health, musculoskeletal)? @ -[Differential Abdominal Pain Men: Appendicitis, cholecystitis, diverticulosis, ischemic bowel, pancreatitis, he patitis, UTI, gastroenteritis, AAA, incarcerated hernia, bowel obstruction, constipation, inflammatory bowel, hepatitis, peptic ulcer disease, splenic infarction, perforated viscus, testicular torsion, this is not meant to be an all-inclusive list EKG interpreted by me (3pts min.). @ -[As above] X-rays interpreted by me (1pt min.). @ -[None done] CT interpreted by me (1pt min.). @ -[None done] U/S interpreted by me (1pt. min.). @ -[None done] What testing was considered but not performed or refused? (CT, X-rays, U/S, labs)? Why? @ -[None] What meds were considered but not given or refused? Why? @ -[None] Did you discuss the management of the patient with other professionals (professionals i.e. , PA, [facility], lab, RT, psych nurse, social service agency director, child and adolescent psychologist, teacher, space operations officer, pillowcase maker)? Give summary @ -[No] Was smoking cessation discussed for >3mins.? @ -[No] Was critical care preformed (if so, how long)? @ -[No] Were there social determinants of health that impacted care today? How? (Homelessness, low income, unemployed, alcoholism, drug addiction, transportation, low edu. Level, literacy, decrease access to med. care, alf, rehab)? @ -[No] Was there de-escalation of care discussed even if they declined (Discuss DNR or withdrawal of care, Hospice)? DNR status @ -[No] What co-morbidities impacted this encounter? (DM, HTN, Smoking, COPD, CAD, Cancer, CVA, ARF, Chemo, Hep., AIDS, mental health diagnosis, sleep apnea, morbid obesity)? @ -[None] Was patient admitted / discharged? Hospital course, mention meds given and route, prescriptions, significant lab abnormalities, going to OR and other pertinent info. @ -[Discharged with follow-up and return parameters Undiagnosed new problem with uncertain prognosis? @ -[No] Drug Therapy requiring intensive monitoring for toxicity (Heparin, Nitro, Insulin, Cardizem)? @ -[No] Were any procedures done? @ -[No] Diagnosis/symptom? @ -[Acute opioid withdrawal Acute, or Chronic, or Acute on Chronic? @ -[Acute Uncomplicated (without systemic symptoms) or Complicated (systemic symptoms)? @ -[Uncomplicated Side effects of treatment? @ -[No] Exacerbation, Progression, or Severe Exacerbation? @ -[No] Poses a threat to life or bodily function? How? (Chest pain, [place], CA, pneumonia, PE, COPD, DKA, ARF, appy, cholecystitis, CVA, Diverticulitis, Homicidal, Suicidal, threat to staff... and all critical care pts) @ -[No] Disposition Clinical Impression: Withdrawal from opioids Disposition: HOME SELF-CARE Condition: Good Instructions (If sedation given, give patient instructions): Opioid Withdrawal (ED) Prescriptions: LORazepam [Ativan] 1 mg PO TID 3 Days #9 tab cloNIDine HCL [Catapres] 0.1 mg PO TID #9 tab Promethazine [Phenergan] 25 mg PO Q6HR PRN #12 tablet PRN Reason: Vomiting Is patient prescribed a controlled substance at d/c from ED?: Yes When asked, does pt state using other controlled substances?: No If prescribed controlled substance>3 days was MAPS reviewed?: Prescribed <3 Days Referrals: Rishabh Mcdowell MD [Primary Care Provider] - 1-2 days
[2023-03-24] MEDS ORDERED: PROMETHAZINE 25 MG TAB PO STA (18:05)
[2023-03-24] MEDS ORDERED: LORazepam 1 MG TAB PO STA (18:05)
[2023-03-24] MEDS ORDERED: cloNIDine HCL 0.1 MG TAB PO STA (18:05)
[2023-03-24 18:07] VITALS: BP 186/101; PULSE 108; RESP 20; TEMP 97.9
== END 2023-03-24 18:15 | disposition home or self-care (01) ==
LOC: EC 14:49
DX: F11.23 Opioid dependence with withdrawal (principal); F31.9 Bipolar disorder, unspecified; F41.9 Anxiety disorder, unspecified; I10 Essential (primary) hypertension; I25.10 Atherosclerotic heart disease of native coronary artery without angina pectoris; I25.2 Old myocardial infarction; E78.5 Hyperlipidemia, unspecified; F12.90 Cannabis use, unspecified, uncomplicated; F17.200 Nicotine dependence, unspecified, uncomplicated; Z79.899 Other long term (current) drug therapy; Z88.5 Allergy status to narcotic agent; Z88.8 Allergy status to other drugs, medicaments and biological substances; Z90.49 Acquired absence of other specified parts of digestive tract
CPT/HCPCS: 36415; 71046; 80053; 80306; 81003; 83735; 84484; 85025; 85610; 85730; 93005; 99285

== ENCOUNTER 2023-04-01 01:30 | Emergency (ER) | payer MEDICARE ==
[2023-04-01 01:38] VITALS: BP 156/96; PULSE 114; RESP 18; TEMP 98.4
== END 2023-04-01 02:10 | disposition left against medical advice (07) ==
LOC: EC 01:30
DX: Z53.21 Procedure and treatment not carried out due to patient leaving prior to being seen by health care provider (principal); R07.89 Other chest pain
CPT/HCPCS: 93005; 99499

== ENCOUNTER 2023-04-01 18:09 | Emergency (ER) | payer MEDICARE ==
[2023-04-01 19:22] VITALS: BP 167/97; PULSE 102; RESP 20; TEMP 98.3
[2023-04-01] MEDS ORDERED: SODIUM CHLORIDE 0.9% 1,000 ML IV ONE (20:27)
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
[2023-04-01 22:40] LABS: Basophils % (A) 0 %; Eosinophils # (A) 0.2 k/uL (0-0.7); Eosinophils % (A) 2 %; HCT 39.7 % (39.0-53.0); HGB 13.4 gm/dL (13.0-17.5); Lymphocytes # (A) 2.2 k/uL (1.0-4.8); Lymphocytes % (A) 25 %; MCHC 33.7 g/dL (31.0-37.0); MCV 88.9 fL (80.0-100.0); Mean Platelet Volume 7.8; Monocytes # (A) 0.5 k/uL (0-1.0); Monocytes % (A) 6 %; Neutrophils # (A) 5.6 k/uL (1.3-7.7); Neutrophils % (A) 65 %; Platelet Count 265 k/uL (150-450); RBC 4.46 m/uL (4.30-5.90); WBC 8.6 k/uL (3.8-10.6)
[2023-04-01 22:53] LABS: ALT 26 U/L (4-49); AST 28 U/L (17-59); African American GFR (CKD) >90 (>60 ml/min/1.73 sqM); Albumin 4.9 g/dL (3.5-5.0); Alcohol <10 mg/dL; Alkaline Phosphatase 86 U/L (38-126); Anion Gap 12 mmol/L; Blood Urea Nitrogen 11 mg/dL (9-20); Carbon Dioxide 22 mmol/L (22-30); Chloride 104 mmol/L (98-107); Glucose 105 mg/dL (74-99); Magnesium 1.7 mg/dL (1.6-2.3); Non-African American GFR(CKD) >90 (>60 ml/min/1.73 sqM); Potassium 3.5 mmol/L (3.5-5.1); Sodium 138 mmol/L (137-145); Total Bilirubin 0.5 mg/dL (0.2-1.3)
[2023-04-01 22:58] LABS: Appearance,Urine Clear (Clear); Bilirubin,Urine Negative (Negative); Blood,Urine Negative (Negative); Color,Urine Yellow; Glucose,Urine (UA) Negative (Negative); Ketones,Urine Negative (Negative); Leukocyte Esterase,Urine Negative (Negative); Nitrite,Urine Negative (Negative); Protein,Urine Negative (Negative); Specific Gravity,Urine 1.016 (1.001-1.035)
[2023-04-01 23:14] LABS: Partial Thromboplastin Time 23.8 sec (22.0-30.0); Prothrombin Time 10.4 sec (9.0-12.0)
[2023-04-01 23:25] LABS: Amphetamine Screen,Urine Not Detected (NotDetected); Barbiturate Screen,Urine Not Detected (NotDetected); Benzodiazepines Screen,Urine Detected (NotDetected); Cocaine Screen,Urine Not Detected (NotDetected); Methadone Screen, Urine Not Detected (NotDetected); Opiate Screen,Urine Detected (NotDetected); Oxycodone Screen, Urine Not Detected (NotDetected); Phencyclidine Screen,Urine Not Detected (NotDetected); Tricyclic Antidepressant,Urine Not Detected (NotDetected); Urn Cannabinoid Scrn Detected (NotDetected)
== END 2023-04-02 | disposition home or self-care (01) ==
LOC: EC 18:09
DX: G47.00 Insomnia, unspecified (principal); F19.10 Other psychoactive substance abuse, uncomplicated; R33.9 Retention of urine, unspecified; I10 Essential (primary) hypertension; I25.10 Atherosclerotic heart disease of native coronary artery without angina pectoris; I25.2 Old myocardial infarction; J44.9 Chronic obstructive pulmonary disease, unspecified; E78.5 Hyperlipidemia, unspecified; F31.9 Bipolar disorder, unspecified; F41.9 Anxiety disorder, unspecified; F17.200 Nicotine dependence, unspecified, uncomplicated; F12.90 Cannabis use, unspecified, uncomplicated; Z88.5 Allergy status to narcotic agent; Z79.899 Other long term (current) drug therapy
CPT/HCPCS: 36415; 80053; 83735; 85025; 85610; 85730; 81003; 80306; 99285; 96360; G0480; 80320

== ENCOUNTER 2023-04-20 11:46 | Observation (INO) | payer MEDICARE, OTHER ==
[2023-04-20] MEDS ORDERED: ASPIRIN 81 MG PO STA (12:37)
[2023-04-20] MEDS ORDERED: NITROGLYCERIN OINT 1 INCH/GM PACKET TOPICAL STA (12:37)
--- NOTE | 2023-04-20 12:40 | ED ---
General Adult HPI - General Chief complaint: Recheck/Abnormal Lab/Rx Stated complaint: rx refill Time Seen by Provider: 04/20/23 12:10 Source: patient, RN notes reviewed, old records reviewed Mode of arrival: ambulatory Limitations: no limitations - History of Present Illness Initial comments: This is a 47-year-old male who is a very poor historian. Patient told me he is here because he wants his high blood pressure medicines refilled when I asked if he had any symptoms he completely denied. Patient denied chest pain or difficulty breathing shortness of breath however when I the nurse she stated that he told her that he was having chest pain radiated to his back and he also told the nurse that he had fallen recent bite. Patient was very upset when I asked about why the nurse of the chest pain and he BACK immediately that of course she's having chest pain because he didn't take his blood pressure meds this morning. Patient refuses to answer certain questions and so this is all the history I'm able to get at this time. Patient did describe the chest pain as tightness. Patient twice threatened to leave because he stated that no one cared about him. Patient also stated he was kicked out of his apartment he has none of his medications. - Related Data Home Medications Medication Instructions Recorded Confirmed Acetaminophen Tab [Tylenol Tab] 500 mg PO BID PRN 12/10/22 02/03/23 Albuterol Inhaler [Ventolin Hfa 1 - 2 puff INHALATION RT-Q6H PRN 12/10/22 02/03/23 Inhaler] Celecoxib [CeleBREX] 100 mg PO BID 12/10/22 02/03/23 Folic Acid 1 mg PO DAILY 12/10/22 02/03/23 Gabapentin 600 mg PO TID 12/10/22 02/03/23 HYDROcodone/APAP 7.5-325MG [[place] 1 tab PO BID PRN 12/10/22 02/03/23 7.5-325] Omeprazole 40 mg PO DAILY 12/10/22 02/03/23 Sucralfate [Carafate] 1 gm PO BID 12/10/22 02/03/23 Tamsulosin [Flomax] 0.8 mg PO HS 12/10/22 02/03/23 busPIRone HCL 15 mg PO TID 12/10/22 02/03/23 carvediloL [Coreg] 6.25 mg PO BID 12/10/22 02/03/23 hydrOXYzine HCL [Atarax] 50 mg PO DAILY PRN 12/10/22 02/03/23 tiZANidine [Zanaflex] 4 mg PO Q8HR PRN 12/10/22 02/03/23 Atorvastatin [Lipitor] 40 mg PO HS 02/03/23 02/03/23 Losartan Potassium [Cozaar] 100 mg PO DAILY 02/03/23 02/03/23 amLODIPine [Norvasc] 5 mg PO DAILY 02/03/23 02/03/23 Previous Rx's Medication Instructions Recorded LORazepam [Ativan] 1 mg PO HS 3 Days #3 tab 02/03/23 LORazepam [Ativan] 1 mg PO TID 3 Days #9 tab 03/24/23 Promethazine [Phenergan] 25 mg PO Q6HR PRN #12 tablet 03/24/23 cloNIDine HCL [Catapres] 0.1 mg PO TID #9 tab 03/24/23 Allergies Allergy/AdvReac Type Severity Reaction Status Date / Time tramadol Allergy Severe Itching Verified 04/20/23 12:01 hydromorphone [From Dilaudid] AdvReac Confusion Verified 04/20/23 12:01 Review of Systems ROS Statement: Those systems with pertinent positive or pertinent negative responses have been documented in the HPI. ROS Other: All systems not noted in ROS Statement are negative. Past Medical History Past Medical History: Coronary Artery Disease (CAD), Chest Pain / Angina, Hyperlipidemia, Hypertension, Myocardial Infarction ([place]) Additional Past Medical History / Comment(s): Recent bronchitis, states he had a withdrawl seizure Last Myocardial Infarction Date:: 2020 History of Any Multi-Drug Resistant Organisms: None Reported Past Surgical History: Cholecystectomy, Heart Catheterization Past Anesthesia/Blood Transfusion Reactions: No Reported Reaction Additional Past Anesthesia/Blood Transfusion Reaction / Comment(s): Pt has never had surgery. Past Psychological History: Anxiety, Bipolar, Depression, Panic Disorder Smoking Status: Current every day smoker Past Alcohol Use History: Daily, Heavy Past Drug Use History: Marijuana - Past Family History Father Family Medical History: Myocardial Infarction ([place]) Additional Family Medical History / Comment(s): Father of a [place] at the age of 41 yrs. Mother Family Medical History: Diabetes Mellitus General Exam - General Exam Comments Initial Comments: GENERAL: Patient is well-developed and well-nourished. Patient is nontoxic and well- hydrated and is in no acute distress. ENT: Neck is soft and supple. No significant lymphadenopathy is noted. Oropharynx is clear. Moist mucous membranes. Neck has full range of motion without eliciting any pain. EYES: The sclera were anicteric and conjunctiva were pink and moist. Extraocular movements were intact and pupils were equal round and reactive to light. Eyelids were unremarkable. PULMONARY: Unlabored respirations. Good breath sounds bilaterally. No audible rales rhonchi or wheezing was noted. CARDIOVASCULAR: There is a regular rate and rhythm without any murmurs gallops or rubs. ABDOMEN: Soft and nontender with normal bowel sounds. SKIN: Skin is clear with no lesions or rashes and otherwise unremarkable. NEUROLOGIC: Patient is alert and oriented x3. Cranial nerves II through XII are grossly in tact. Motor and sensory are also intact. Normal speech, volume and content. Symmetrical smile. MUSCULOSKELETAL: Normal extremities with adequate strength and full range of motion. LYMPHATICS: No significant lymphadenopathy is noted PSYCHIATRIC: Patient is very agitated and at times refused to answer the question are asking. Patient states we do care and we aren't treating just like the police did Limitations: no limitations Course Vital Signs 04/20/23 04/20/23 12:02 13:05 Temperature 99.7 F H Pulse Rate 103 H 78 Respiratory 20 20 Rate Blood Pressure 169/96 148/86 O2 Sat by Pulse 100 94 L Oximetry Medical Decision Making - Medical Decision Making EKG was interpreted by myself shows an atrial rhythm at 77 bpm TX interval 152 QRS is 86 QT interval 360 QTC is 391 per patient's EKG shows no ST segment elevation or depression. Was pt. sent in by a medical professional or institution (, PA, PHYSICAL ANTHROPOLOGIST, urgent care, hospital, or shelter...) When possible be specific @ -States his primary medical care doctor sent him in Did you speak to anyone other than the patient for history (EMS, parent, family, police, friend...)? What history was obtained from this source @ -[No] Did you review nursing and triage notes (agree or disagree)? Why? @ -[I reviewed and agree with nursing and triage notes] Were old charts reviewed (outside hosp., previous admission, EMS record, old EKG, old radiological studies, urgent care reports/EKG's, shelter records)? Report findings @ -[No old charts were reviewed] Differential Diagnosis (chest pain, altered mental status, abdominal pain women, abdominal pain men, vaginal bleeding, weakness, fever, dyspnea, syncope, heada becki, dizziness, GI bleed, back pain, seizure, CVA, palpatations, mental health, musculoskeletal)? @ -Differential Chest Pain: Stable Angina, Unstable Angina, STEMI, NSTEMI Aortic Dissection, Pneumothorax, Musculoskeletal, Esophageal Spasm GERD, Cholecystitis, Pancreatitis, Zoster, this is not meant to be an all-inclusive list. EKG interpreted by me (3pts min.). @ -[As above] X-rays interpreted by me (1pt min.). @ -Chest x-ray shows no acute abnormality CT interpreted by me (1pt min.). @ -[None done] U/S interpreted by me (1pt. min.). @ -[None done] What testing was considered but not performed or refused? (CT, X-rays, U/S, labs)? Why? @ -[None] What meds were considered but not given or refused? Why? @ -[None] Did you discuss the management of the patient with other professionals (professionals i.e. , PA, PHYSICAL ANTHROPOLOGIST, lab, RT, psych nurse, hospice social worker, pet care worker, teacher, sheriff officer, top case assembler)? Give summary @ -I spoke with Dr. Lee she agreed to admit the patient admitted the patient I wrote admitting orders Was smoking cessation discussed for >3mins.? @ -[No] Was critical care preformed (if so, how long)? @ -[No] Were there social determinants of health that impacted care today? How? (Homelessness, low income, unemployed, alcoholism, drug addiction, transportation, low edu. Level, literacy, decrease access to med. care, penitentiary, rehab)? @ -[No] Was there de-escalation of care discussed even if they declined (Discuss DNR or withdrawal of care, Hospice)? DNR status @ -[No] What co-morbidities impacted this encounter? (DM, HTN, Smoking, COPD, CAD, Cancer, CVA, ARF, Chemo, Hep., AIDS, mental health diagnosis, sleep apnea, morbid obesity)? @ -[None] Was patient admitted / discharged? Hospital course, mention meds given and route, prescriptions, significant lab abnormalities, going to OR and other pertinent info. @ -Patient complained of chest pain to the nurse initially and then it later to myself. Patient was not forthcoming with a lot of the history when you ask him questions he refused to answer but because of his mental health history I am admitting the patient to rule him out and have cardiology see him. Patient's lab work was initially normal as was chest x-ray. I spoke with Dr. Lee she agreed to admit the patient admitted the patient I wrote admitting was I will consult cardiology Undiagnosed new problem with uncertain prognosis? @ -[No] Drug Therapy requiring intensive monitoring for toxicity (Heparin, Nitro, Insulin, Cardizem)? @ -[No] Were any procedures done? @ -[No] Diagnosis/symptom? @ -Chest pain Acute, or Chronic, or Acute on Chronic? @ -Acute Uncomplicated (without systemic symptoms) or Complicated (systemic symptoms)? @ -Complicated Side effects of treatment? @ -[No] Exacerbation, Progression, or Severe Exacerbation? @ -[No] Poses a threat to life or bodily function? How? (Chest pain, [place], [place], pneumonia, PE, COPD, DKA, ARF, appy, cholecystitis, CVA, Diverticulitis, Homicidal, Suicidal, threat to staff... and all critical care pts) @ -Yes this could lead to an [place] which lead to poor perfusion and end organ dysfunction - Lab Data Result diagrams: 04/20/23 12:58 04/20/23 12:58 Lab Results 04/20/23 04/20/23 04/20/23 Range/Units 12:58 12:58 12:58 WBC 7.9 (3.8-10.6) k/uL RBC 3.99 L (4.30-5.90) m/uL Hgb 12.0 L (13.0-17.5) gm/dL Hct 36.1 L (39.0-53.0) % MCV 90.5 (80.0-100.0) fL MCH 30.1 (25.0-35.0) pg MCHC 33.2 (31.0-37.0) g/dL RDW 13.0 (11.5-15.5) % Plt Count 232 (150-450) k/uL MPV 7.8 Neutrophils % 69 % Lymphocytes % 22 % Monocytes % 5 % Eosinophils % 2 % Basophils % 0 % Neutrophils # 5.4 (1.3-7.7) k/uL Lymphocytes # 1.8 (1.0-4.8) k/uL Monocytes # 0.4 (0-1.0) k/uL Eosinophils # 0.1 (0-0.7) k/uL Basophils # 0.0 (0-0.2) k/uL PT 10.0 (9.0-12.0) sec INR 0.9 (<1.2) APTT 23.6 (22.0-30.0) sec Sodium 137 (137-145) mmol/L Potassium 3.6 (3.5-5.1) mmol/L Chloride 106 (98-107) mmol/L Carbon Dioxide 25 (22-30) mmol/L Anion Gap 6 mmol/L BUN 9 (9-20) mg/dL Creatinine 0.88 (0.66-1.25) mg/dL Est GFR (CKD-EPI)AfAm >90 (>60 ml/min/1.73 sqM) Est GFR (CKD-EPI)NonAf >90 (>60 ml/min/1.73 sqM) Glucose 94 (74-99) mg/dL Calcium 9.5 (8.4-10.2) mg/dL Magnesium 1.3 L (1.6-2.3) mg/dL Total Bilirubin 0.3 (0.2-1.3) mg/dL AST 27 (17-59) U/L ALT 20 (4-49) U/L Alkaline Phosphatase 82 (38-126) U/L Troponin I (0.000-0.034) ng/mL Total Protein 6.7 (6.3-8.2) g/dL Albumin 4.2 (3.5-5.0) g/dL 04/20/23 Range/Units 12:58 WBC (3.8-10.6) k/uL RBC (4.30-5.90) m/uL Hgb (13.0-17.5) gm/dL Hct (39.0-53.0) % MCV (80.0-100.0) fL MCH (25.0-35.0) pg MCHC (31.0-37.0) g/dL RDW (11.5-15.5) % Plt Count (150-450) k/uL MPV Neutrophils % % Lymphocytes % % Monocytes % % Eosinophils % % Basophils % % Neutrophils # (1.3-7.7) k/uL Lymphocytes # (1.0-4.8) k/uL Monocytes # (0-1.0) k/uL Eosinophils # (0-0.7) k/uL Basophils # (0-0.2) k/uL PT (9.0-12.0) sec INR (<1.2) APTT (22.0-30.0) sec Sodium (137-145) mmol/L Potassium (3.5-5.1) mmol/L Chloride (98-107) mmol/L Carbon Dioxide (22-30) mmol/L Anion Gap mmol/L BUN (9-20) mg/dL Creatinine (0.66-1.25) mg/dL Est GFR (CKD-EPI)AfAm (>60 ml/min/1.73 sqM) Est GFR (CKD-EPI)NonAf (>60 ml/min/1.73 sqM) Glucose (74-99) mg/dL Calcium (8.4-10.2) mg/dL Magnesium (1.6-2.3) mg/dL Total Bilirubin (0.2-1.3) mg/dL AST (17-59) U/L ALT (4-49) U/L Alkaline Phosphatase (38-126) U/L Troponin I <0.012 (0.000-0.034) ng/mL Total Protein (6.3-8.2) g/dL Albumin (3.5-5.0) g/dL Disposition Clinical Impression: Chest pain, Hypomagnesemia Disposition: ADMITTED IP TO THIS HOSP Referrals: Rishabh Mcdowell MD [Primary Care Provider] - 1-2 days Time of Disposition: 14:41
[2023-04-20 13:04] LABS: Basophils % (A) 0 %; Eosinophils # (A) 0.1 k/uL (0-0.7); Eosinophils % (A) 2 %; HCT 36.1 % (39.0-53.0); Lymphocytes # (A) 1.8 k/uL (1.0-4.8); Lymphocytes % (A) 22 %; MCH 30.1 pg (25.0-35.0); MCHC 33.2 g/dL (31.0-37.0); MCV 90.5 fL (80.0-100.0); Mean Platelet Volume 7.8; Monocytes # (A) 0.4 k/uL (0-1.0); Monocytes % (A) 5 %; Neutrophils # (A) 5.4 k/uL (1.3-7.7); Neutrophils % (A) 69 %; Platelet Count 232 k/uL (150-450); RBC 3.99 m/uL (4.30-5.90); WBC 7.9 k/uL (3.8-10.6)
[2023-04-20 13:19] LABS: INR 0.9 (<1.2); Partial Thromboplastin Time 23.6 sec (22.0-30.0)
[2023-04-20 13:34] LABS: ALT 20 U/L (4-49); AST 27 U/L (17-59); African American GFR (CKD) >90 (>60 ml/min/1.73 sqM); Albumin 4.2 g/dL (3.5-5.0); Alkaline Phosphatase 82 U/L (38-126); Anion Gap 6 mmol/L; Blood Urea Nitrogen 9 mg/dL (9-20); Calcium 9.5 mg/dL (8.4-10.2); Carbon Dioxide 25 mmol/L (22-30); Chloride 106 mmol/L (98-107); Glucose 94 mg/dL (74-99); Magnesium 1.3 mg/dL (1.6-2.3); Non-African American GFR(CKD) >90 (>60 ml/min/1.73 sqM); Potassium 3.6 mmol/L (3.5-5.1); Sodium 137 mmol/L (137-145); Total Bilirubin 0.3 mg/dL (0.2-1.3); Total Protein 6.7 g/dL (6.3-8.2)
--- NOTE | 2023-04-20 14:14 | XR ---
EXAMINATION TYPE: XR chest 2V DATE OF EXAM: 04/20/2023 COMPARISON: 03/24/2023 HISTORY: 47-year-old male with chest pain TECHNIQUE: PA and lateral views FINDINGS: Heart normal size. Aorta and pulmonary vasculature within normal limits. Mild hyperinflation. No cons olidation or pleural effusion. IMPRESSION: COPD. No acute process seen.
[2023-04-20] MEDS ORDERED: NITROGLYCERIN SL TABS 0.4 MG TAB SUBLINGUAL PRN (14:43)
[2023-04-20] MEDS: MAGNESIUM SULFATE-D5W PMX 1 GM in DEXTROSE/WATER 1 100ML.BAG IVPB SCH ×2 (14:59→17:11)
[2023-04-20] MEDS: NITROGLYCERIN OINT 1 INCH/GM PACKET TOPICAL SCH (17:10)
--- NOTE | 2023-04-20 17:29 | P.HPIM ---
History of Present Illness H&P Date: 04/20/23 History of Presenting Illness: Patient is a 47-year-old male with a past medical history of CAD with history of previous reported [place] in 2020, hypertension, hyperlipidemia, daily alcohol abuse with history of withdrawal seizures, nicotine dependence, anxiety, depression, bipolar disorder, and panic disorder. He presented to the emergency department with a chief complaint of chest pain. Patient also reports that he is on multiple medications and needs his medications refilled. Patient reports he was staying at a friend's house and was kicked out today without his medications. Patient only answering limited questions and then covering with blanket. He currently denies having any dizziness, lightheadedness, palpitations, abdominal pain, nausea, vomiting, or experiencing any numbness/tingling/weakness in his extremities. Patient reports he is still having chest pain rated 10 out of 10 to midsternal chest described as a tightness accompanied by shortness of breath. He underwent full evaluation in the emergency department. Vital signs reviewed. Upon arrival patient 169/96, heart rate 103, respiratory rate 20, temp 99.7F and SpO2 100% on room air. EKG was completed showing sinus rhythm at 77 bpm with T-wave inversion in leads 1 and aVL and no significan ST abnormalities showing no signs of acute ischemia upon personal review and interpretation. Chest x-ray completed, lungs appear hyperinflated and clear radiology report stating negative for acute cardiopulmonary process showing findings consistent with COPD. Labs completed and reviewed. CBC showing normocytic anemia with hemoglobin of 12.0. Coagulation profile normal findings. CMP unremarkable with the exception of low magnesium levels of 1.3. Troponin negative at less than 0.012. Patient was given magnesium sulfate 2 g IVPB in the emergency department along with aspirin 324 mg by mouth 1 dose and Nitro- Bid ointment. Discussed patient complaints, laboratory analysis, and imaging findings in detail with ED provider. Patient to be admitted under our services observation unit with consultation to cardiology. Review of systems: Pertinent positives and negatives as discussed in HPI, a complete review of systems was performed and all other systems are negative. Physical exam: Vital signs reviewed and stable. General: Nontoxic, no distress and appears stated age. Patient dity and disheveled appearance. Derm: Skin warm and dry, normal coloration for ethnicity. Head: Atraumatic, normocephalic and symmetric. Eyes: EOMs intact, no lid lag, and anicteric sclera Mouth: no lip lesions, mucus membranes moist Cardiovascular: regular rate and rhythm with normal S1S2, no murmur, positive posterior tibial pulses bilaterally, and cap refill < 2 seconds. Lungs: Respirations even, regular, and unlabored on room air. Lungs CTA bilaterally, no rhonchi, no rales, no wheezing, and no accessory muscle usage. Abdominal: soft, nontender to palpation, no guarding, no appreciable o rganomegaly Ext: ROM intact. No gross muscle atrophy, no edema, no contractures Neuro: Speech clear, face symmetrical and CN II-XII grossly intact with no noted focal neuro deficits Psych: Alert and oriented to person, place, time, and situation. Appropriate and pleasant affect. Assessment and Plan of Care: Chest pain, rule out acute coronary event Hypertension Hypomagnesemia -Vital signs reviewed. Upon arrival patient 169/96, heart rate 103, respiratory rate 20, temp 99.7F and SpO2 100% on room air. -EKG was completed showing sinus rhythm at 77 bpm with T-wave inversion in leads 1 and aVL and no significan ST abnormalities showing no signs of acute ischemia upon personal review and interpretation. -Chest x-ray completed, lungs appear hyperinflated and clear radiology report stating negative for acute cardiopulmonary process showing findings consistent with COPD. -Labs completed and reviewed. CBC showing normocytic anemia with hemoglobin of 12.0. Coagulation profile normal findings. CMP unremarkable with the exception of low magnesium levels of 1.3. Troponin negative at less than 0.012. -Patient was given magnesium sulfate 2 g IVPB in the emergency department along with aspirin 324 mg by mouth 1 dose and Nitro-Bid ointment. -Discussed patient complaints, laboratory analysis, and imaging findings in detail with ED provider. -Patient to be admitted under our services observation unit with telemetry. -Cardiology consult, appreciate further recommendations -Trend troponins -Cardiac diet, NPO at midnight -Lipid profile with a.m. labs. -Continue cardiac medication regimen consisting of aspirin 325 mg daily, amlodipine 10 mg daily, and carvedilol 6.25 mg twice daily Alcohol abuse impending withdrawal History of alcohol withdrawal seizures -Order placed for monitoring of CIWA scores and patient to be medicated with Ativan 0.5 mg every 4 hours as needed for CIWA score of 4-5, Ativan 1 mg every 4 hours for CIWA score of 6-7, Ativan 2 mg every 3 hours CIWA score of 8-9, and Ativan 2 mg every 2 hours forr CIWA score of 10 or greater. -Continuous IV hydration. -Thiamine 100 mg twice a day -Multivitamin daily -Folate 1 mg daily -Seizure, fall, aspiration, and elopement precautions in place. -Urine drug screen -Continued close monitoring of electrolytes and replace as needed. -Telemetry monitoring. Nicotine dependence -Recommend smoking cessation. Nicotine patch provided. Anxiety and depression with panic disorder Bipolar disorder Continue daily medication regimen with buspirone 15 mg 3 times daily, Prozac 20 mg daily, Neurontin 600 mg 3 times daily, and hydroxyzine 50 mg daily as needed for anxiety The patient is admitted with an anticipated less than 2 midnight stay for evaluation of chest pain CODE STATUS: Full code DVT prophylaxis: Heparin Discussed with: Patient, ED physician, and RN Anticipated discharge date: 24-[address]: Home Patient was seen independently by Nurse Practitioner. This document was prepared using [employer] dictation software. Please allow for errors in news intern while rare they do occur. I reviewed the documentation as provided by the FELICIA above, who is the original author of this note. I agree with the documented assessment and plan, with the following changes: none Past Medical History Past Medical History: Coronary Artery Disease (CAD), Chest Pain / Angina, Hyperlipidemia, Hypertension, Myocardial Infarction ([place]) Additional Past Medical History / Comment(s): Recent bronchitis, states he had a withdrawl seizure Last Myocardial Infarction Date:: 2020 History of Any Multi-Drug Resistant Organisms: None Reported Past Surgical History: Cholecystectomy, Heart Catheterization Past Anesthesia/Blood Transfusion Reactions: No Reported Reaction Additional Past Anesthesia/Blood Transfusion Reaction / Comment(s): Pt has never had surgery. Past Psychological History: Anxiety, Bipolar, Depression, Panic Disorder Smoking Status: Current every day smoker Past Alcohol Use History: Daily, Heavy Past Drug Use History: Marijuana - Past Family History Father Family Medical History: Myocardial Infarction ([place]) Additional Family Medical History / Comment(s): Father of a [place] at the age of 41 yrs. Mother Family Medical History: Diabetes Mellitus Medications and Allergies Home Medications Medication Instructions Recorded Confirmed Type Acetaminophen Tab [Tylenol Tab] 500 mg PO BID PRN 12/10/22 04/20/23 History Albuterol Inhaler [Ventolin Hfa 2 puff INHALATION RT-Q4H PRN 12/10/22 04/20/23 History Inhaler] Celecoxib [CeleBREX] 100 mg PO BID 12/10/22 04/20/23 History Folic Acid 1 mg PO DAILY 12/10/22 04/20/23 History Gabapentin 600 mg PO TID 12/10/22 04/20/23 History HYDROcodone/APAP 7.5-325MG [[place] 1 tab PO BID PRN 12/10/22 04/20/23 History 7.5-325] Omeprazole 40 mg PO DAILY 12/10/22 04/20/23 History Sucralfate [Carafate] 1 gm PO Q12H 12/10/22 04/20/23 History Tamsulosin [Flomax] 0.8 mg PO HS 12/10/22 04/20/23 History busPIRone HCL 15 mg PO TID 12/10/22 04/20/23 History carvediloL [Coreg] 6.25 mg PO BID-W/MEALS 12/10/22 04/20/23 History hydrOXYzine HCL [Atarax] 50 mg PO DAILY PRN 12/10/22 04/20/23 History Atorvastatin [Lipitor] 40 mg PO HS 02/03/23 04/20/23 History Losartan Potassium [Cozaar] 100 mg PO DAILY 02/03/23 04/20/23 History Cyclobenzaprine [Flexeril] 10 mg PO BID PRN 04/20/23 04/20/23 History Docusate [Colace] 100 mg PO BID 04/20/23 04/20/23 History FLUoxetine HCL [PROzac] 20 mg PO DAILY 04/20/23 04/20/23 History Fluticasone Propion/Salmeterol 2 puff INHALATION RT-BID 04/20/23 04/20/23 History [Advair Hfa 115-21 Mcg Inhaler] Nicotine 14Mg/24Hr Patch [Habitrol 1 patch TRANSDERM DAILY 04/20/23 04/20/23 History 14Mg/24Hr Patch] Nitroglycerin Sl Tabs [Nitrostat] 0.4 mg SL Q5M PRN 04/20/23 04/20/23 History amLODIPine [Norvasc] 10 mg PO DAILY 04/20/23 04/20/23 History Allergies Allergy/AdvReac Type Severity Reaction Status Date / Time tramadol Allergy Severe Itching Verified 04/20/23 15:44 hydromorphone [From Dilaudid] AdvReac Confusion Verified 04/20/23 15:44 Physical Exam Osteopathic Statement: *. No significant issues noted on an osteopathic structural exam other than those noted in the History and Physical/Consult. Vitals: Vital Signs Temp Pulse Resp BP Pulse Ox 04/20/23 14:58 87 18 135/63 97 04/20/23 13:05 78 20 148/86 94 L 04/20/23 12:02 99.7 F H 103 H 20 169/96 100 Intake and Output 04/20/23 04/20/23 04/20/23 06:59 14:59 22:59 Other: Weight 72.575 kg Results CBC & Chem 7: 04/21/23 05:54 04/21/23 05:54 Labs: Abnormal Lab Results - Last 24 Hours (Table) 04/20/23 04/20/23 Range/Units 12:58 12:58 RBC 3.99 L (4.30-5.90) m/uL Hgb 12.0 L (13.0-17.5) gm/dL Hct 36.1 L (39.0-53.0) % Magnesium 1.3 L (1.6-2.3) mg/dL
[2023-04-20] MEDS ORDERED: CYCLOBENZAPRINE 10 MG TAB PO PRN (17:58)
[2023-04-20] MEDS ORDERED: HYDROcodone/APAP 7.5-325MG 1 EACH TAB PO PRN (17:58)
[2023-04-20] MEDS ORDERED: hydrOXYzine HCL 25 MG TAB PO PRN (17:58)
[2023-04-20] MEDS ORDERED: LORazepam 1 MG TAB PO PRN ×4 (18:01)
[2023-04-20] MEDS ORDERED: LORazepam 0.5 MG TAB PO PRN (18:01)
[2023-04-20] MEDS: carvediloL 6.25 MG TAB PO SCH (18:21)
[2023-04-20] MEDS: NICOTINE 14MG/24HR PATCH TRANSDERM SCH (18:22)
[2023-04-20] MEDS ORDERED: GABAPENTIN 300 MG CAP ONE (20:14)
[2023-04-20] MEDS: busPIRone HCl 5 MG TAB PO SCH (20:16)
[2023-04-20] MEDS: DOCUSATE 100 MG CAP PO SCH (20:16)
[2023-04-20 20:23] LABS: Amphetamine Screen,Urine Not Detected (NotDetected); Barbiturate Screen,Urine Not Detected (NotDetected); Benzodiazepines Screen,Urine Not Detected (NotDetected); Cocaine Screen,Urine Not Detected (NotDetected); Methadone Screen, Urine Not Detected (NotDetected); Opiate Screen,Urine Detected (NotDetected); Oxycodone Screen, Urine Not Detected (NotDetected); Phencyclidine Screen,Urine Not Detected (NotDetected); Tricyclic Antidepressant,Urine Not Detected (NotDetected); Urn Cannabinoid Scrn Detected (NotDetected)
[2023-04-20] MEDS ORDERED: TAMSULOSIN 0.4 MG CAP.ER.24H PO SCH (21:00)
[2023-04-20] MEDS ORDERED: ATORVASTATIN 40 MG TAB PO SCH (21:00)
[2023-04-20] MEDS: GABAPENTIN 300 MG CAP PO SCH (22:52)
[2023-04-20] MEDS: SUCRALFATE 1 GM TAB PO SCH (22:54)
[2023-04-20] MEDS: HEPARIN SODIUM,PORCINE/PF 5,000 UNIT/0.5 ML SYRINGE SQ SCH (22:55)
[2023-04-20] MEDS: SYMBICORT 160-4.5 MCG INHALER INHALATION SCH (23:58)
[2023-04-21] MEDS: NITROGLYCERIN OINT 1 INCH/GM PACKET TOPICAL SCH ×4 (00:51→17:54)
[2023-04-21 04:04] VITALS: RESP 16
[2023-04-21] MEDS: carvediloL 6.25 MG TAB PO SCH ×2 (06:29→17:55)
[2023-04-21] MEDS ORDERED: PANTOPRAZOLE 40 MG TABLET PO SCH (07:30)
[2023-04-21] MEDS: SYMBICORT 160-4.5 MCG INHALER INHALATION SCH (08:05)
[2023-04-21] MEDS ORDERED: THIAMINE 100 MG TAB PO SCH (09:00)
[2023-04-21] MEDS ORDERED: FLUoxetine HCL 20 MG CAP PO SCH (09:00)
[2023-04-21] MEDS ORDERED: ASPIRIN 325 MG TAB PO SCH (09:00)
[2023-04-21] MEDS ORDERED: MELOXICAM 7.5 MG TAB PO SCH ×2 (09:00→14:00)
[2023-04-21] MEDS ORDERED: amLODIPine 10 MG TAB PO SCH (09:00)
[2023-04-21] MEDS ORDERED: FOLIC ACID 1 MG TAB PO SCH (09:00)
[2023-04-21] MEDS ORDERED: LOSARTAN 50 MG TAB PO SCH (09:00)
[2023-04-21] MEDS: SUCRALFATE 1 GM TAB PO SCH (09:21)
[2023-04-21] MEDS: GABAPENTIN 300 MG CAP PO SCH ×2 (09:21→16:18)
[2023-04-21] MEDS: DOCUSATE 100 MG CAP PO SCH (09:22)
[2023-04-21] MEDS: busPIRone HCl 5 MG TAB PO SCH ×2 (09:22→16:19)
[2023-04-21] MEDS: HEPARIN SODIUM,PORCINE/PF 5,000 UNIT/0.5 ML SYRINGE SQ SCH ×2 (09:22→16:20)
[2023-04-21 09:25] LABS: HCT 35.8 % (39.6-50.0); HGB 11.6 d/dL (12.0-15.0); MCH 29.4 pg (27.0-32.0); MCHC 32.4 d/dL (32.0-37.0); MCV 90.9 FL (80.0-97.0); Mean Platelet Volume 10.6 FL (9.5-12.2); NRBC Per 100 WBC 0 X 10*3/uL (0.00-0.01); Platelet Count 258 X 10*3/uL (140-440); RBC 3.94 X 10*6/uL (4.40-5.60); WBC 6.93 X 10*3/uL (4.50-10.00)
[2023-04-21 09:40] LABS: Blood Urea Nitrogen 11.7 mg/dL (9.0-27.0); Chloride 104 mmol/L (96-109); Chol/HDL Ratio 3.33 Ratio; Glucose 100 mg/dL (70-110); LDL Cholesterol,Calculated 58.2 mg/dL (0.0-131.0); Magnesium 2.1 mg/dL (1.5-2.4); Potassium 4.5 mmol/L (3.5-5.5); Sodium 140 mmol/L (135-145)
[2023-04-21 09:41] LABS: ALT 18 U/L (10-49); AST 18 U/L (14-35); Albumin 4.3 d/dL (3.8-4.9); Albumin/Globulin Ratio 2.05 Ratio (1.60-3.17); Alkaline Phosphatase 84 U/L (41-126); Calcium 9.5 mg/dL (8.7-10.3); Carbon Dioxide 23.9 mmol/L (21.6-31.8); Globulin 2.1 d/dL (1.6-3.3); Total Bilirubin <0.2 mg/dL (0.3-1.2); Total Protein 6.4 d/dL (6.2-8.2)
--- NOTE | 2023-04-21 09:59 | P.CRDCN ---
History of Present Illness Consult date: 04/21/23 Consult reason: chest pain History of present illness: History of present illness: This is a 47-year-old male previously seen in the office by Dr. Swartz with past medical history of hypertension, hyperlipidemia, tobacco use and dependence. He states that he is smoking after 3 packs per day and denies any use of alcohol or drug use. We have been asked to evaluate the patient for chest pain. Patient states that he has had this pain on and off for a long time. He was seen in the office in December and was scheduled for stress test in May. EKG sinus rhythm Chest x-ray: No acute process. COPD WBC 6.9, hemoglobin 11.6. Electrolytes normal. BUN 11, creatinine 1. Her troponin negative 3. Triglycerides 150, cholesterol 126, LDL 58, HDL 37. Magnesium 2.1 initially 1.3. Liver function tests are normal. Urine drug screen positive for opiates and marijuana. Home cardiac medications: Amlodipine 10 mg daily, atorvastatin 40 mg at bedtime, Coreg 6.25 mg twice daily, losartan 100 mg daily, Nitrostat as needed. Review Of Systems: At the time of my evaluation: Constitutional: No fever, no chills. No weakness, fatigue or lethargy. EENT: No headache. No dizziness. Lungs: No shortness of breath, cough, no sputum production. No wheezing. Cardiovascular: No chest pain, no lower extremity edema. No palpitations. No paroxysmal nocturnal dyspnea. No orthopnea. No lightheadedness or dizziness. No syncopal episodes. Abdominal: No abdominal pain. No nausea, vomiting. No diarrhea. No constipation. No bloody or tarry stools. Genitourinary: No dysuria.. No urinary retention. Musculoskeletal: No myalgias. No muscle weakness, no frequent falls. No back pain. No neck pain. Integumentary: No wounds. No rash. No unusual bruising. Neurologic: No aphasia. No facial droop. No change in mentation. No head injury. No headache. Physical examination: Gen: This is a 47-year-old male, resting in bed and appears to be in no acute distress VS: reviewed HEENT: Head is atraumatic, normocephalic. Pupils equal, round. Sclerae is anicteric. NECK: Supple. No JVD. . LUNGS: Clear to auscultation. No wheezes or rhonchi. No intercostal retractions. HEART: Regular rate and rhythm. No murmur. ABDOMEN: Soft No tenderness. EXTREMITIES: No pedal edema. No calf tenderness. NEUROLOGICAL: Patient is awake, alert and oriented x3. Assessment: Chest pain, acute coronary syndrome ruled out Hypertension Hyperlipidemia Tobacco use and dependence Plan: Resume patient's home cardiac medications Schedule patient for stress echo today Obtain 2-D echocardiogram and Doppler study to assess cardiac structure and function His stress echo and echocardiogram are unremarkable, patient is cleared for discharge from cardiology. Thank you kindly for this consultation. Nurse practitioner note has been reviewed, I agree with documented findings and plan of care. Patient was seen and examined. Past Medical History Past Medical History: Coronary Artery Disease (CAD), Chest Pain / Angina, Hyperlipidemia, Hypertension, Myocardial Infarction (MD) Additional Past Medical History / Comment(s): Recent bronchitis, states he had a withdrawl seizure Last Myocardial Infarction Date:: 2020 History of Any Multi-Drug Resistant Organisms: None Reported Past Surgical History: Cholecystectomy, Heart Catheterization Past Anesthesia/Blood Transfusion Reactions: No Reported Reaction Additional Past Anesthesia/Blood Transfusion Reaction / Comment(s): Pt has never had surgery. Past Psychological History: Anxiety, Bipolar, Depression, Panic Disorder Additional Psychological History / Comment(s): Pt resides with a friend. He is disabled. He uses no assistive device. He does not drive, he walks to appts. Smoking Status: Current every day smoker Past Alcohol Use History: Daily, Heavy Additional Past Alcohol Use History / Comment(s): Pt started smoking in 1984 and is a half a ppd smoker. Pt states he drinks beer but less than 14 beers in a week. Past Drug Use History: Marijuana Additional Drug Use History / Comment(s): Pt states he smokes marijuana every other day. - Past Family History Father Family Medical History: Myocardial Infarction (MD) Additional Family Medical History / Comment(s): Father of a MD at the age of 41 yrs. Mother Family Medical History: Diabetes Mellitus Medications and Allergies Home Medications Medication Instructions Recorded Confirmed Type Acetaminophen Tab [Tylenol Tab] 500 mg PO BID PRN 12/10/22 04/20/23 History Albuterol Inhaler [Ventolin Hfa 2 puff INHALATION RT-Q4H PRN 12/10/22 04/20/23 History Inhaler] Celecoxib [CeleBREX] 100 mg PO BID 12/10/22 04/20/23 History Folic Acid 1 mg PO DAILY 12/10/22 04/20/23 History Gabapentin 600 mg PO TID 12/10/22 04/20/23 History HYDROcodone/APAP 7.5-325MG [[place] 1 tab PO BID PRN 12/10/22 04/20/23 History 7.5-325] Omeprazole 40 mg PO DAILY 12/10/22 04/20/23 History Sucralfate [Carafate] 1 gm PO Q12H 12/10/22 04/20/23 History Tamsulosin [Flomax] 0.8 mg PO HS 12/10/22 04/20/23 History busPIRone HCL 15 mg PO TID 12/10/22 04/20/23 History carvediloL [Coreg] 6.25 mg PO BID-W/MEALS 12/10/22 04/20/23 History hydrOXYzine HCL [Atarax] 50 mg PO DAILY PRN 12/10/22 04/20/23 History Atorvastatin [Lipitor] 40 mg PO HS 02/03/23 04/20/23 History Losartan Potassium [Cozaar] 100 mg PO DAILY 02/03/23 04/20/23 History Cyclobenzaprine [Flexeril] 10 mg PO BID PRN 04/20/23 04/20/23 History Docusate [Colace] 100 mg PO BID 04/20/23 04/20/23 History FLUoxetine HCL [PROzac] 20 mg PO DAILY 04/20/23 04/20/23 History Fluticasone Propion/Salmeterol 2 puff INHALATION RT-BID 04/20/23 04/20/23 History [Advair Hfa 115-21 Mcg Inhaler] Nicotine 14Mg/24Hr Patch [Habitrol 1 patch TRANSDERM DAILY 04/20/23 04/20/23 History 14Mg/24Hr Patch] Nitroglycerin Sl Tabs [Nitrostat] 0.4 mg SL Q5M PRN 04/20/23 04/20/23 History amLODIPine [Norvasc] 10 mg PO DAILY 04/20/23 04/20/23 History Allergies Allergy/AdvReac Type Severity Reaction Status Date / Time tramadol Allergy Severe Itching Verified 04/20/23 15:44 hydromorphone [From Dilaudid] AdvReac Confusion Verified 04/20/23 15:44 Physical Exam Vitals: Vital Signs Temp Pulse Pulse Resp BP BP BP 04/21/23 08:05 04/21/23 07:40 97.5 F L 63 16 133/77 04/21/23 06:31 77 126/60 04/21/23 02:00 97.4 F L 68 16 135/75 04/20/23 22:55 64 18 04/20/23 21:33 98.2 F 64 16 161/88 04/20/23 19:44 81 18 154/92 04/20/23 18:17 93 20 163/89 04/20/23 14:58 87 18 135/63 04/20/23 13:05 78 20 148/86 04/20/23 12:02 99.7 F H 103 H 20 169/96 Pulse Ox 04/21/23 08:05 96 04/21/23 07:40 96 04/21/23 06:31 04/21/23 02:00 99 04/20/23 22:55 04/20/23 21:33 99 04/20/23 19:44 99 04/20/23 18:17 98 04/20/23 14:58 97 04/20/23 13:05 94 L 04/20/23 12:02 100 Intake and Output 04/20/23 04/21/23 04/21/23 22:59 06:59 14:59 Other: Voiding Method Toilet Urinal # Voids 1 1 Weight 72.575 kg Results 04/21/23 05:54 04/21/23 05:54 Cardiac Enzymes 04/20/23 04/20/23 04/20/23 Range/Units 12:58 12:58 16:04 AST 27 (17-59) U/L Troponin I <0.012 <0.012 (0.000-0.034) ng/mL 04/20/23 04/21/23 Range/Units 19:07 05:54 AST 18 (17-59) U/L Troponin I <0.012 (0.000-0.034) ng/mL Coagulation 04/20/23 Range/Units 12:58 PT 10.0 (9.0-12.0) sec APTT 23.6 (22.0-30.0) sec Lipids 04/21/23 Range/Units 05:54 Triglycerides 150.00 H (0.00-149.00) mg/dL Cholesterol 126.00 (0.00-200.00) mg/dL HDL Cholesterol 37.80 L (40.00-60.00) mg/dL Cholesterol/HDL Ratio 3.33 Ratio CBC 04/20/23 04/21/23 Range/Units 12:58 05:54 WBC 7.9 6.93 (3.8-10.6) k/uL RBC 3.99 L 3.94 L (4.30-5.90) m/uL Hgb 12.0 L 11.6 L (13.0-17.5) gm/dL Hct 36.1 L 35.8 L (39.0-53.0) % Plt Count 232 258 (150-450) k/uL Comprehensive Metabolic Panel 04/20/23 04/21/23 Range/Units 12:58 05:54 Sodium 137 140 (137-145) mmol/L Potassium 3.6 4.5 (3.5-5.1) mmol/L Chloride 106 104 (98-107) mmol/L Carbon Dioxide 25 23.9 (22-30) mmol/L BUN 9 11.7 (9-20) mg/dL Creatinine 0.88 1.0 (0.66-1.25) mg/dL Glucose 94 100 (74-99) mg/dL Calcium 9.5 9.5 (8.4-10.2) mg/dL AST 27 18 (17-59) U/L ALT 20 18 (4-49) U/L Alkaline Phosphatase 82 84 (38-126) U/L Total Protein 6.7 6.4 (6.3-8.2) g/dL Albumin 4.2 4.3 (3.5-5.0) g/dL Current Medications Generic Name Dose Route Start Last Admin Trade Name Freq PRN Reason Stop Dose Admin Hydrocodone Bitart/Acetaminophen 1 each 04/20/23 17:58 04/20/23 20:16 Hydrocodone/Apap 7.5-325mg 1 Each Tab PO 1 each BID PRN Administration Pain Albuterol Sulfate 2.5 mg 04/20/23 17:58 Albuterol Nebulized 2.5 Mg/3 Ml INHALATION RT-Q4H PRN Coigh & Wheezing Amlodipine Besylate 10 mg 04/21/23 09:00 04/21/23 09:21 Amlodipine 10 Mg Tab PO 10 mg DAILY YESSY Administration Aspirin 325 mg 04/21/23 09:00 04/21/23 09:21 Aspirin 325 Mg Tab PO 325 mg DAILY YESSY Administration Atorvastatin Calcium 40 mg 04/20/23 21:00 04/20/23 20:16 Atorvastatin 40 Mg Tab PO 40 mg HS YESSY Administration Budesonide/Formoterol Fumarate 2 puff 04/20/23 20:00 04/21/23 08:05 Symbicort 160-4.5 Mcg Inhaler INHALATION Not Given RT-BID YESSY Buspirone HCl 15 mg 04/20/23 22:00 04/21/23 09:22 Buspirone Hcl 5 Mg Tab PO 15 mg TID YESSY Administration Carvedilol 6.25 mg 04/20/23 18:00 04/21/23 06:29 Carvedilol 6.25 Mg Tab PO 6.25 mg BID-W/MEALS YESSY Administration Cyclobenzaprine HCl 10 mg 04/20/23 17:58 Cyclobenzaprine 10 Mg Tab PO BID PRN Muscle Spasm Docusate Sodium 100 mg 04/20/23 21:00 04/21/23 09:22 Docusate 100 Mg Cap PO 100 mg BID YESSY Administration Fluoxetine HCl 20 mg 04/21/23 09:00 04/21/23 09:21 Fluoxetine Hcl 20 Mg Cap PO 20 mg DAILY YESSY Administration Folic Acid 1 mg 04/21/23 09:00 04/21/23 09:21 Folic Acid 1 Mg Tab PO 1 mg DAILY YESSY Administration Gabapentin 600 mg 04/20/23 22:00 04/21/23 09:21 Gabapentin 300 Mg Cap PO 600 mg TID YESSY Administration Heparin Sodium (Porcine) 5,000 unit 04/21/23 00:00 04/21/23 09:22 Heparin Sodium,Porcine/Pf 5,000 Unit/0.5 Ml Syringe SQ 5,000 unit Q8HR YESSY Administration Hydroxyzine HCl 50 mg 04/20/23 17:58 Hydroxyzine Hcl 25 Mg Tab PO DAILY PRN Severe Anxiety Lorazepam 0.5 mg 04/20/23 18:01 Lorazepam 0.5 Mg Tab PO Q4HR PRN [place] 4 To 5 Lorazepam 1 mg 04/20/23 18:01 Lorazepam 1 Mg Tab PO Q4HR PRN [place] 6 To 7 Lorazepam 2 mg 04/20/23 18:01 Lorazepam 1 Mg Tab PO Q3HR PRN [place] 8 To 9 Lorazepam 1 mg 04/20/23 18:01 Lorazepam 1 Mg Tab PO Q1HR PRN Alcohol Withdrawal Lorazepam 2 mg 04/20/23 18:01 Lorazepam 1 Mg Tab PO Q2HR PRN [place] 10 or greater Losartan Potassium 100 mg 04/21/23 09:00 04/21/23 09:21 Losartan 50 Mg Tab PO 100 mg DAILY YESSY Administration Meloxicam 75 mg 04/21/23 09:00 Meloxicam 7.5 Mg Tab PO DAILY YESSY Nicotine 1 patch 04/20/23 18:00 04/20/23 18:22 Nicotine 14mg/24hr Patch TRANSDERM Not Given DAILY [facility] Nitroglycerin 0.4 mg 04/20/23 14:43 Nitroglycerin Sl Tabs 0.4 Mg Tab SUBLINGUAL Q5M PRN Chest Pain Nitroglycerin 1 inch 04/20/23 18:00 04/21/23 05:19 Nitroglycerin Oint 1 Inch/Gm Packet TOPICAL Not Given Q6HR YESSY Pantoprazole Sodium 40 mg 04/21/23 07:30 04/21/23 06:29 Pantoprazole 40 Mg Tablet PO 40 mg [id number] YESSY Administration Sucralfate 1 gm 04/20/23 21:00 04/21/23 09:21 Sucralfate 1 Gm Tab PO 1 gm Q12HR YESSY Administration Tamsulosin HCl 0.8 mg 04/20/23 21:00 04/20/23 22:54 Tamsulosin 0.4 Mg Cap.Er.24h PO 0.8 mg HS YESSY Administration Thiamine HCl 100 mg 04/21/23 09:00 04/21/23 09:21 Thiamine 100 Mg Tab PO 100 mg DAILY YESSY Administration Intake and Output 04/20/23 04/21/23 04/21/23 22:59 06:59 14:59 Other: Voiding Method Toilet Urinal # Voids 1 1 Weight 72.575 kg 04/21/23 05:54 04/21/23 05:54
[2023-04-21] MEDS ORDERED: DOBUTamine DRIP for NUC MED 500 MG in DEXTROSE/WATER 1 250ML.BAG IV PRN (12:17)
[2023-04-21] MEDS ORDERED: ATROPINE SULFATE 0.1 MG/ML 10ML SYRINGE ONE (12:35)
[2023-04-21] MEDS ORDERED: DOBUTamine DRIP for NUC MED 500 MG/250 ML BAG IV ONE (12:38)
[2023-04-21] MEDS: NICOTINE 14MG/24HR PATCH TRANSDERM SCH (13:29)
[2023-04-21] MEDS: ALBUTEROL NEBULIZED 2.5 MG/3 ML INHALATION PRN ×2 (15:33→15:34)
[2023-04-21 16:19] VITALS: BP 124/80; PULSE 66; TEMP 97.6
--- NOTE | 2023-04-21 16:19 | P.PN ---
Subjective Progress Note Date: 04/21/23 Hospital course: Patient is a 47-year-old male with a past medical history of CAD with history of previous reported [place] in 2020, hypertension, hyperlipidemia, daily alcohol abuse with history of withdrawal seizures, nicotine dependence, anxiety, depression, bipolar disorder, and panic disorder. He presented to the emergency department on 04/20/23 with a chief complaint of chest pain. Patient also reported that he is on multiple medications and needs his medications refilled because he was staying at a friend's house and was kicked out without his medications. He underwent full evaluation in the emergency department. Vital signs reviewed. Upon arrival patient 169/96, heart rate 103, respiratory rate 20, temp 99.7F and SpO2 100% on room air. EKG was completed showing sinus rhythm at 77 bpm with T-wave inversion in leads 1 and aVL and no significan ST abnormalities show ing no signs of acute ischemia upon personal review and interpretation. Chest x-ray completed, lungs appear hyperinflated and clear with radiology report stating negative for acute cardiopulmonary process showing findings consistent with COPD. Labs completed and reviewed. CBC showing normocytic anemia with hemoglobin of 12.0. Coagulation profile normal findings. CMP unremarkable with the exception of low magnesium levels of 1.3. Troponin negative at less than 0.012. Patient was given magnesium sulfate 2 g IVPB in the emergency department along with aspirin 324 mg by mouth 1 dose and Nitro-Bid ointment. Discussed patient complaints, laboratory analysis, and imaging findings in detail with ED provider. Patient to be admitted under our services observation unit with consultation to cardiology. Patient monitored overnight troponins all resulting negative at less than 0.0123 draws. Urine drug screen positive for opiates and marijuana. Lipid profile revealing elevated triglycerides of 115 and low HDL of 37. Cardiology evaluated the recommending echocardiogram be completed an ticipation for dobutamine stress echo test. Physical exam: Patient seen and fully evaluated at the bedside upon return from stress echo. Patient reports feeling "great". Patient reports calling [facility] for assistance with housing. Vital signs reviewed and stable. General: Nontoxic, no distress and appears stated age. Patient dity and disheveled appearance. Derm: Skin warm and dry, normal coloration for ethnicity. Head: Atraumatic, normocephalic and symmetric. Eyes: EOMs intact, no lid lag, and anicteric sclera Mouth: no lip lesions, mucus membranes moist Cardiovascular: regular rate and rhythm with normal S1S2, no murmur, positive posterior tibial pulses bilaterally, and cap refill < 2 seconds. Lungs: Respirations even, regular, and unlabored on room air. Lungs CTA bilaterally, no rhonchi, no rales, no wheezing, and no accessory muscle usage. Abdominal: soft, nontender to palpation, no guarding, no appreciable organomegaly Ext: ROM intact. No gross muscle atrophy, no edema, no contractures Neuro: Speech clear, face symmetrical and CN II-XII grossly intact with no noted focal neuro deficits Psych: Alert and oriented to person, place, time, and situation. Appropriate and pleasant affect. Assessment and Plan of Care: Angina, acute coronary event ruled out. Sinus tachycardia Hypertension Hypomagnesemia, resolved -Troponins trended overnight and all negative at less than 0.0123 draws. -Urine drug screen resulting positive for opiates and marijuana -Cardiology following, discussed plan of care with cardiac INFANT BABYSITTER. Patient to undergo dobutamine stress echo and if both echocardiogram and dobutamine stress echo are unremarkable patient may be discharged from cardiac standpoint. -Cardiac diet -Lipid profile showing elevated triglycerides of 115 and low HDL of 37. -Continue cardiac medication regimen consisting of aspirin 325 mg daily, amlodipine 10 mg daily, atorvastatin 40 mg nightly, and carvedilol 6.25 mg twice daily Alcohol abuse impending withdrawal History of alcohol withdrawal seizures -Continue monitoring of CIWA scores and patient to be medicated with Ativan 0.5 mg every 4 hours as needed for CIWA score of 4-5, Ativan 1 mg every 4 hours for CIWA score of 6-7, Ativan 2 mg every 3 hours CIWA score of 8-9, and Ativan 2 mg every 2 hours forr CIWA score of 10 or greater. Current CIWA score 2. -Continue Thiamine 100 mg twice a day, Multivitamin daily, and Folate 1 mg daily -Continue Seizure, fall, aspiration, and elopement precautions -Continued close monitoring of electrolytes and replace as needed. -Telemetry monitoring. Nicotine dependence -Recommend smoking cessation. Nicotine patch provided. Anxiety and depression with panic disorder Bipolar disorder Continue daily medication regimen with buspirone 15 mg 3 times daily, Prozac 20 mg daily, Neurontin 600 mg 3 times daily, and hydroxyzine 50 mg daily as needed for anxiety Data review: According vitals reviewed and stable with blood pressure 133/77, heart rate 63, respiratory rate 16, temp 97.5F and SpO2 of 96% on room air. Morning labs reviewed. CBC showing stable normocytic anemia with hemoglobin 11.6. BMP unremarkable. Liver profile unremarkable. Magnesium 2.1. Lipid p rofile showing elevated triglycerides of 150 and low HDL of 37.80. Urine drug screen resulting positive for opiates and marijuana. Imaging review: No new imaging available for review at this time we'll follow up on echocardiogram results as well as dobutamine stress echo results once available CODE STATUS: Full code DVT prophylaxis: Heparin Discussed with: Patient, cardiac INFANT BABYSITTER, and RN Anticipated discharge date: Within the next [address]: Home Patient was seen independently by Nurse Practitioner. This document was prepared using [employer] dictation software. Please allow for errors in per diem interpreter while rare they do occur. I reviewed the documentation as provided by the FELICIA above, who is the original author of this note. I agree with the documented assessment and plan, with the following changes: none Objective - Vital Signs Vital signs: Vital Signs Temp 97.5 F L 04/21/23 07:40 Pulse 63 04/21/23 07:40 Resp 16 04/21/23 07:40 BP 133/77 04/21/23 07:40 Pulse Ox 96 04/21/23 08:05 FiO2 Intake & Output 04/20/23 04/21/23 04/21/23 18:59 06:59 18:59 Weight 72.575 kg 72.575 kg Other: Voiding Method Toilet Urinal # Voids 1 - Labs CBC & Chem 7: 04/21/23 05:54 04/21/23 05:54 Labs: Abnormal Lab Results - Last 24 Hours (Table) 04/20/23 04/20/23 04/20/23 Range/Units 12:58 12:58 19:46 RBC 3.99 L (4.30-5.90) m/uL Hgb 12.0 L (13.0-17.5) gm/dL Hct 36.1 L (39.0-53.0) % Magnesium 1.3 L (1.6-2.3) mg/dL Urine Opiates Screen Detected H (NotDetected) U Marijuana (THC) Screen Detected H (NotDetected)
--- NOTE | 2023-04-21 17:15 | CA ---
Transthoracic Echo Report Name: Lukas Payne Age: 47 Gender: M : 1975 Exam Date: 04/21/2023 11:56 Exam Location: [place] [facility] Ht (in): 67 Wt (lb): 160 Ordering Physician: Daniella Al Attending/Referring Phys: [id number], Servando Bullet Casting Operator An Galvan [facility] Procedure CPT: Indications: LVF Cardiac Hx: Technical Quality: Fair Contrast 1: Total Dose (mL): Contrast 2: Total Dose (mL): MEASUREMENTS (Male / Female) Normal Values 2D ECHO LV Diastolic Diameter PLAX 5.1 cm 4.2 - 5.9 / 3.9 - 5.3 cm LV Systolic Diameter PLAX 4.0 cm IVS Diastolic Thickness 0.7 cm 0.6 - 1.0 / 0.6 - 0.9 cm LVPW Diastolic Thickness 0.9 cm 0.6 - 1.0 / 0.6 - 0.9 cm LV Relative Wall Thickness 0.3 LVOT Diameter 2.0 cm LV Diastolic Volume MOD BP 124.0 cm??? 67 - 155 / 56 - 104 cm??? LV Systolic Volume MOD BP 49.2 cm??? 22 - 58 / 19 - 49 cm??? LV Ejection Fraction MOD BP 60.3 % >= 55 % LV Cardiac Index MOD BP 2409.3 cm???/min???m??? LV Diastolic Volume MOD 4C 125.0 cm??? LV Systolic Volume MOD 4C 51.9 cm??? LV Ejection Fraction MOD 4C 58.5 % LV Cardiac Index MOD 4C 2357.4 cm???/min???m??? LV Diastolic Length 4C 9.3 cm LV Systolic Length 4C 7.5 cm LV Diastolic Volume MOD 2C 115.0 cm??? LV Systolic Volume MOD 2C 45.2 cm??? LV Ejection Fraction MOD 2C 60.7 % LV Cardiac Index MOD 2C 2248.4 cm???/min???m??? LV Diastolic Length 2C 8.7 cm LV Systolic Length 2C 7.8 cm LA Volume 47.7 cm??? 18 - 58 / 22 - 52 cm??? Ascending Aorta Diameter 3.0 cm M-MODE Aortic Root Diameter MM 2.3 cm LA Systolic Diameter MM 3.1 cm LA Ao Ratio MM 1.3 AV Cusp Separation MM 1.9 cm DOPPLER AV Peak Velocity 228.6 cm/s AV Peak Gradient 20.9 mmHg AV Mean Velocity 150.1 cm/s AV Mean Gradient 10.6 mmHg AV Velocity Time Integral 52.4 cm AI Peak Velocity 511.9 cm/s AI Peak Gradient 104.8 mmHg AI Pressure Half Time 530.4 ms LVOT Peak Velocity 118.2 cm/s LVOT Peak Gradient 5.6 mmHg LVOT Velocity Time Integral 25.3 cm LVOT Stroke Volume 76.6 cm??? LVOT Stroke Volume Index 41.6 ml/m??? LVOT Cardiac Index 2467.6 cm???/min???m??? AV Area Cont Eq vti 1.5 cm??? AV Area Cont Eq pk 1.6 cm??? MV Area PHT 3.1 cm??? Mitral E Point Velocity 105.8 cm/s Mitral A Point Velocity 94.0 cm/s Mitral E to A Ratio 1.1 MV Deceleration Time 246.0 ms LV E' Lateral Velocity 11.4 cm/s Mitral E to LV E' Lateral Ratio 9.3 LV E' Septal Velocity 9.7 cm/s Mitral E to LV E' Septal Ratio 11.0 TR Peak Velocity 229.5 cm/s TR Peak Gradient 21.1 mmHg Right Atrial Pressure 3.0 mmHg Pulmonary Artery Systolic Pressu 24.1 mmHg Right Ventricular Systolic Press 26.1 mmHg FINDINGS Left Ventricle Mildly increased left ventricular wall thickness. Mild left ventricular dilatation. Mildly reduced global left ventricular systolic function. Left ventricular ejection fraction is estimated at 45-50%. Right Ventricle Normal right ventricular size and function. Right Atrium Mild right atrial dilatation. Left Atrium Normal left atrial size. Mitral Valve Structurally normal mitral valve. Trace mitral regurgitation. Aortic Valve Trileaflet aortic valve. Aortic valve sclerosis. Moderate aortic regurgitation. Tricuspid Valve Structurally normal tricuspid valve. Trace tricuspid regurgitation. Pulmonic Valve Structurally normal pulmonic valve. No pulmonic regurgitation. Pericardium No pericardial effusion. Aorta Normal size aortic root and proximal ascending aorta. CONCLUSIONS Mild LV systolic dysfunction Moderate aortic regurgitation Previewed by: Ivan Mcdonald MD Dr. Suresh Tumma MD (Electronically Signed) Final Date: 21 April 2023 17:14
--- NOTE | 2023-04-21 17:17 | CA ---
Dobutamine Stress Echocardiogram Report Lukas Payne Age: 47 Gender: M : 1975 Exam Date: 04/21/2023 12:18 Exam Location: [place] [facility] Ordering Physician: Daniella Al Referring Physician: Servando CORREA Medical Care Manager: PORFIRIO, Technologist: Ht (in): 67 Wt (lb): 160 Procedure CPT: Indication: CP ICD-9 Codes: Rhythm: Patient History: Cardiac Medications: Medications in past 24 hours: Contrast: Total Dose (mL): Stress Results Protocol: Dobutamine Peak Dose (???g/kg/min): 40 Duration (min:sec): Atropine:(mg) 0.5 Target HR: 145 Double Product: [id number] Resting HR: 56 Resting BP: 167 / 77 Peak HR: 163 Peak BP: 194 / 84 Max Predicted HR: 171 95 % Max Predicted HR Stress Summary: NO SYMPTOMS BP Response: Reason for Termination: TARGET HR ACHIEVED Cardiac Symptoms: ECG Analysis Resting EKG: Normal sinus rhythm normal axis normal intervals Stress EKG: Patient was given intravenous dobutamine or a period of 14 minutes also received 0.5 mg of atropine achieving 85% of predicted maximum heart rate Arrhythmia: Echo Analysis Base Echo Analysis: Normal left ventricle a size wall motion systolic function with an ejection fraction of 50% Low Echo Anaylsis: Normal Peak Echo Analysis: Normal hyperdynamic response of all segments of myocardium noted Recovery Echo: Normal MEASUREMENTS (Male/Female) Normal Values CONCLUSIONS Negative dobutamine stress echo Dr. Rocky Banks MD (Electronically Signed) Final Date: 21 April 2023 17:16
--- NOTE | 2023-04-21 17:35 | P.DS ---
Providers Date of admission: 04/20/23 14:44 Expected date of discharge: 04/21/23 Attending physician: Elisa Lee DO Consults: 04/20/23 14:43 Consult Physician Urgent Consulting Provider: [facility] Consult Reason/Comments: Chest pain Do you want consulting provider notified?: Yes Primary care physician: Rishabh Mcdowell MD Hospital Course: Discharge Diagnosis: Angina, acute coronary event ruled out. Continue cardiac medication regimen consisting of aspirin 325 mg daily, amlodipine 10 mg daily, atorvastatin 40 mg nightly, and carvedilol 6.25 mg twice daily Sinus tachycardia, resolved Hypertension, stable on current medication regimen with blood pressure 124/80 and heart rate is 66 at time of discharge. Hypomagnesemia, resolved Alcohol abuse impending withdrawal, patient educated on the importance of cessation of alcohol use/abuse History of alcohol withdrawal seizures Nicotine dependence. Recommend smoking cessation. Nicotine patch provided. Bipolar disorder, Anxiety and depression with panic disorder. Continue daily medication regimen with buspirone 15 mg 3 times daily, Prozac 20 mg daily, Neurontin 600 mg 3 times daily, and hydroxyzine 50 mg daily as needed for anxiety Hospital Course: Patient is a 47-year-old male with a past medical history of CAD with history of previous reported OR in 2020, hypertension, hyperlipidemia, daily alcohol abuse with history of withdrawal seizures, nicotine dependence, anxiety, depression, bipolar disorder, and panic disorder. He presented to the emergency department on 04/20/23 with a chief complaint of chest pain. Patient also reported that he is on multiple medications and needs his medications refilled because he was staying at a friend's house and was kicked out without his medications. He underwent full evaluation in the emergency department. Vital signs reviewed. Upon arrival patient 169/96, heart rate 103, respiratory rate 20, temp 99.7F and SpO2 100% on room air. EKG was completed showing sinus rhythm at 77 bpm with T-wave inversion in leads 1 and aVL and no significan ST abnormalities s howing no signs of acute ischemia upon personal review and interpretation. Chest x-ray completed, lungs appear hyperinflated and clear with radiology report stating negative for acute cardiopulmonary process showing findings consistent with COPD. Labs completed and reviewed. CBC showing normocytic anemia with hemoglobin of 12.0. Coagulation profile normal findings. CMP unremarkable with the exception of low magnesium levels of 1.3. Troponin negative at less than 0.012. Patient was given magnesium sulfate 2 g IVPB in the emergency department along with aspirin 324 mg by mouth 1 dose and Nitro- Bid ointment. Discussed patient complaints, laboratory analysis, and imaging findings in detail with ED provider. Patient to be admitted under our services observation unit with consultation to cardiology. Patient monitored overnight troponins all resulting negative at less than 0.0123 draws. Urine drug screen positive for opiates and marijuana. Lipid profile revealing elevated trigly cerides of 115 and low HDL of 37. Cardiology evaluated the recommending echocardiogram be completed anticipation for dobutamine stress echo test. Echocardiogram completed revealing mildly impaired EF of 45-50% with moderate aortic regurgitation. Patient underwent dobutamine stress echo which was reported to be a negative dobutamine stress echo test. Edge Stripper clearing patient from cardiac standpoint for discharge. Medically, patient is stable for discharge. Patient will need to follow up outpatient with PCP and marketing production specialist. Physical exam: Vital signs reviewed and stable. General: Nontoxic, no distress and appears stated age. Patient dity and disheveled appearance. Derm: Skin warm and dry, normal coloration for ethnicity. Head: Atraumatic, normocephalic and symmetric. Eyes: EOMs intact, no lid lag, and anicteric sclera Mouth: no lip lesions, mucus membranes moist Cardiovascular: regular rate and rhythm with normal S1S2, no murmur, positive posterior tibial pulses bilaterally, and cap refill < 2 seconds. Lungs: Respirations even, regular, and unlabored on room air. Lungs CTA bilaterally, no rhonchi, no rales, no wheezing, and no accessory muscle usage. Abdominal: soft, nontender to palpation, no guarding, no appreciable organomegaly Ext: ROM intact. No gross muscle atrophy, no edema, no contractures Neuro: Speech clear, face symmetrical and CN II-XII grossly intact with no noted focal neuro deficits Psych: Alert and oriented to person, place, time, and situation. Appropriate and pleasant affect. A total of 32 minutes of time were spent preparing this complex discharge summary. Pt was discharged on 04/21/23 at 5:29 PM Patient was seen independently by Nurse Practitioner. This document was prepared using [employer] dictation software. Please allow for errors in theater technician while rare they do occur. I reviewed the documentation as provided by the FELICIA above, who is the original author of this note. I agree with the documented assessment and plan, with the following changes: none Patient Condition at Discharge: Stable Plan - Discharge Summary Discharge Rx Participant: Yes New Discharge Prescriptions: Continue Sucralfate [Carafate] 1 gm PO Q12H Omeprazole 40 mg PO DAILY carvediloL [Coreg] 6.25 mg PO BID-W/MEALS busPIRone HCL 15 mg PO TID Albuterol Inhaler [Ventolin Hfa Inhaler] 2 puff INHALATION RT-Q4H PRN PRN Reason: Coigh & Wheezing Acetaminophen Tab [Tylenol] 500 mg PO BID PRN PRN Reason: Pain Atorvastatin [Lipitor] 40 mg PO HS Nicotine 14Mg/24Hr Patch [Habitrol] 1 patch TRANSDERM DAILY Docusate [Colace] 100 mg PO BID amLODIPine [Norvasc] 10 mg PO DAILY FLUoxetine HCL [PROzac] 20 mg PO DAILY Tamsulosin [Flomax] 0.8 mg PO HS hydrOXYzine HCL [Atarax] 50 mg PO DAILY PRN PRN Reason: Severe Anxiety HYDROcodone/APAP 7.5-325MG [[place] 7.5-325] 1 tab PO BID PRN PRN Reason: Pain Gabapentin 600 mg PO TID Folic Acid 1 mg PO DAILY Celecoxib [CeleBREX] 100 mg PO BID Losartan Potassium [Cozaar] 100 mg PO DAILY Fluticasone Propion/Salmeterol [Advair Hfa 115-21 Mcg Inhaler] 2 puff INHALATION RT-BID Cyclobenzaprine [Flexeril] 10 mg PO BID PRN PRN Reason: Muscle Spasm Nitroglycerin Sl Tabs [Nitrostat] 0.4 mg SL Q5M PRN PRN Reason: Chest Pain Discharge Medication List Acetaminophen Tab [Tylenol] 500 mg PO BID PRN 12/10/22 [History] Albuterol Inhaler [Ventolin Hfa Inhaler] 2 puff INHALATION RT-Q4H PRN 12/10/22 [History] Celecoxib [CeleBREX] 100 mg PO BID 12/10/22 [History] Folic Acid 1 mg PO DAILY 12/10/22 [History] Gabapentin 600 mg PO TID 12/10/22 [History] HYDROcodone/APAP 7.5-325MG [[place] 7.5-325] 1 tab PO BID PRN 12/10/22 [History] Omeprazole 40 mg PO DAILY 12/10/22 [History] Sucralfate [Carafate] 1 gm PO Q12H 12/10/22 [History] Tamsulosin [Flomax] 0.8 mg PO HS 12/10/22 [History] busPIRone HCL 15 mg PO TID 12/10/22 [History] carvediloL [Coreg] 6.25 mg PO BID-W/MEALS 12/10/22 [History] hydrOXYzine HCL [Atarax] 50 mg PO DAILY PRN 12/10/22 [History] Atorvastatin [Lipitor] 40 mg PO HS 02/03/23 [History] Losartan Potassium [Cozaar] 100 mg PO DAILY 02/03/23 [History] Cyclobenzaprine [Flexeril] 10 mg PO BID PRN 04/20/23 [History] Docusate [Colace] 100 mg PO BID 04/20/23 [History] FLUoxetine HCL [PROzac] 20 mg PO DAILY 04/20/23 [History] Fluticasone Propion/Salmeterol [Advair Hfa 115-21 Mcg Inhaler] 2 puff INHALATION RT-BID 04/20/23 [History] Nicotine 14Mg/24Hr Patch [Habitrol] 1 patch TRANSDERM DAILY 04/20/23 [History] Nitroglycerin Sl Tabs [Nitrostat] 0.4 mg SL Q5M PRN 04/20/23 [History] amLODIPine [Norvasc] 10 mg PO DAILY 04/20/23 [History] Follow up Appointment(s)/Referral(s): Rishabh Mcdowell MD [Primary Care Provider] - 1-2 days Rocky Banks MD [STAFF PHYSICIAN] - 1 Week Patient Instructions/Handouts: Chest Pain (DC), At-Risk Alcohol Use (DC) Activity/Diet/Wound Care/Special Instructions: Activity: As tolerated. Take breaks as needed. Diet: Heart healthy and carb consistent diet. Avoid salts, or foods with hidden salts such as canned or boxed foods and frozen dinners. Extra salt makes your heart work harder and traps the fluid in your body for longer. Special Instructions: Take all of your medications as directed and remember to keep all of your doctor's appointments and follow-up as needed. Your Prescriptions were all sent by your PCP-Dr. Mcdowell on 04/12/23 to [facility]. You may cloth picker your prescription refills at this location. Thank you for allowing us to participate in your care, it was truly a pleasure having you for our patient!!! Discharge Disposition: HOME SELF-CARE
== END 2023-04-21 18:44 | disposition home or self-care (01) ==
LOC: SUPCPDRO 11:46 → EC 11:46 → 6NMEDSUR 14:44
PROVIDERS: ADMIT Internal Medicine; ATTEND Internal Medicine
DX: I25.119 Atherosclerotic heart disease of native coronary artery with unspecified angina pectoris (principal); R00.0 Tachycardia, unspecified; I10 Essential (primary) hypertension; E83.42 Hypomagnesemia; D64.9 Anemia, unspecified; J44.9 Chronic obstructive pulmonary disease, unspecified; F10.10 Alcohol abuse, uncomplicated; Z71.41 Alcohol abuse counseling and surveillance of alcoholic; R82.5 Elevated urine levels of drugs, medicaments and biological substances; Z71.6 Tobacco abuse counseling; F17.210 Nicotine dependence, cigarettes, uncomplicated; E78.5 Hyperlipidemia, unspecified; I25.2 Old myocardial infarction; F31.9 Bipolar disorder, unspecified; F41.0 Panic disorder [episodic paroxysmal anxiety]; Z82.49 Family history of ischemic heart disease and other diseases of the circulatory system; Z83.3 Family history of diabetes mellitus; Z87.898 Personal history of other specified conditions; Z90.49 Acquired absence of other specified parts of digestive tract; Z98.890 Other specified postprocedural states; Z79.51 Long term (current) use of inhaled steroids; Z79.82 Long term (current) use of aspirin; Z79.1 Long term (current) use of non-steroidal anti-inflammatories (NSAID); Z79.899 Other long term (current) drug therapy; Z88.5 Allergy status to narcotic agent
CPT/HCPCS: 96372 ×2; 99284; 36415; 94640; 94760; 93005; 93306; 93351; 80061; 80053 ×2; 83735 ×2; 84484; 85025; 85027; 85610; 85730; 80306; 71046; G0378 ×2; J1250; J0461; J3475; J1644 ×2; 96374; 96376

== ENCOUNTER → 2023-04-27 | Outpatient (CLI) | payer MEDICARE, OTHER ==
--- NOTE | 2023-04-27 15:15 | P.CNPUL ---
History of Present Illness Consult date: 04/27/23 Reason for consult: obstructive sleep apnea History of present illness: This is a 47-year-old male patient is having sleeping difficulties for 15 years. She states that he has chronic insomnia he cannot sit up his mind and go to sleep. He apparently has basically can sleep better. On other days, he cannot sleep more than 2 hours. The patient is currently unemployed. He is on SSI disability. He states that he has learning disability. 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 He smokes 5-6 joints of marijuana on a daily basis. He states that marijuana comes in down although it doesn't help him all the time to go to sleep. He used to drink alcohol the past and he is not drinking for now. He smokes tobacco. He has history of depression currently is on Prozac. He has chronic back pain in his mentation on Willis and Flexeril and gabapentin. He also reports history of snoring. He feels fatigued and tired throughout the day. He lives with a roommate. As such, were not sure if he has any witnessed apneas. He goes to bed between 10 and 11 PM and wakes up 6 AM in the morning. He has occasional panic attacks. He also has some restlessness in his lower extremities bilaterally. He has chronic problems with nocturia and symptoms of prostatism and currently the patient is taking tamsulosin 0.4 mg on a daily basis. No head trauma. No episodes of waking up in the middle of the night choking or gasping for air. No grinding of the teeth and the patient has poor dentures. No nocturnal heartburn. No sleep walking. No sleep talking. Review of Systems Constitutional: Reports fatigue Eyes: denies as per HPI, denies blurred vision, denies bulging eye, denies decreased vision, denies diplopia, denies discharge, denies dry eye, denies irritation, denies itching, denies pain, denies photophobia, denies loss of peripheral vision, denies loss of vision, denies tunnel vision/blind spots Ears: deny: decreased hearing, ear discharge, earache, tinnitus Ears, nose, mouth and throat: Reports as per HPI Breasts: absent: as per HPI, gynecomastia Cardiovascular: Reports as per HPI Respiratory: Reports as per HPI Gastrointestinal: Reports as per HPI Genitourinary: Reports as per HPI, Reports nocturia, Reports urinary frequency Musculoskeletal: Reports as per HPI, Reports low back pain Musculoskeletal: absent: ankle pain, ankle stiffness, ankle swelling Integumentary: Reports as per HPI Neurological: Reports as per HPI Psychiatric: Reports insomnia, Reports sleep disturbances Endocrine: Reports as per HPI, Reports fatigue Hematologic/Lymphatic: Reports as per HPI Allergic/Immunologic: Reports as per HPI Past Medical History Past Medical History: Coronary Artery Disease (CAD), Hyperlipidemia, Hype rtension, Myocardial Infarction ([place]) Additional Past Medical History / Comment(s): Recent bronchitis, states he had a withdrawl seizure Last Myocardial Infarction Date:: 2020 History of Any Multi-Drug Resistant Organisms: None Reported Past Surgical History: Cholecystectomy, Heart Catheterization Past Anesthesia/Blood Transfusion Reactions: No Reported Reaction Additional Past Anesthesia/Blood Transfusion Reaction / Comment(s): Pt has never had surgery. Past Psychological History: Anxiety, Bipolar, Depression, Panic Disorder Smoking Status: Current every day smoker Past Alcohol Use History: Daily, Heavy Past Drug Use History: Marijuana - Past Family History Father Family Medical History: Myocardial Infarction ([place]) Additional Family Medical History / Comment(s): Father of a [place] at the age of 41 yrs. Mother Family Medical History: Diabetes Mellitus Medications and Allergies Home Medications Medication Instructions Recorded Confirmed Type Acetaminophen Tab [Tylenol] 500 mg PO BID PRN 12/10/22 04/20/23 History Albuterol Inhaler [Ventolin Hfa 2 puff INHALATION RT-Q4H PRN 12/10/22 04/20/23 History Inhaler] Celecoxib [CeleBREX] 100 mg PO BID 12/10/22 04/20/23 History Folic Acid 1 mg PO DAILY 12/10/22 04/20/23 History Gabapentin 600 mg PO TID 12/10/22 04/20/23 History HYDROcodone/APAP 7.5-325MG [Willis 1 tab PO BID PRN 12/10/22 04/20/23 History 7.5-325] Omeprazole 40 mg PO DAILY 12/10/22 04/20/23 History Sucralfate [Carafate] 1 gm PO Q12H 12/10/22 04/20/23 History Tamsulosin [Flomax] 0.8 mg PO HS 12/10/22 04/20/23 History busPIRone HCL 15 mg PO TID 12/10/22 04/20/23 History carvediloL [Coreg] 6.25 mg PO BID-W/MEALS 12/10/22 04/20/23 History hydrOXYzine HCL [Atarax] 50 mg PO DAILY PRN 12/10/22 04/20/23 History Atorvastatin [Lipitor] 40 mg PO HS 02/03/23 04/20/23 History Losartan Potassium [Cozaar] 100 mg PO DAILY 02/03/23 04/20/23 History Cyclobenzaprine [Flexeril] 10 mg PO BID PRN 04/20/23 04/20/23 History Docusate [Colace] 100 mg PO BID 04/20/23 04/20/23 History FLUoxetine HCL [PROzac] 20 mg PO DAILY 04/20/23 04/20/23 History Fluticasone Propion/Salmeterol 2 puff INHALATION RT-BID 04/20/23 04/20/23 History [Advair Hfa 115-21 Mcg Inhaler] Nicotine 14Mg/24Hr Patch [Habitrol] 1 patch TRANSDERM DAILY 04/20/23 04/20/23 History Nitroglycerin Sl Tabs [Nitrostat] 0.4 mg SL Q5M PRN 04/20/23 04/20/23 History amLODIPine [Norvasc] 10 mg PO DAILY 04/20/23 04/20/23 History Allergies Allergy/AdvReac Type Severity Reaction Status Date / Time tramadol Allergy Severe Itching Verified 04/20/23 15:44 hydromorphone [From Dilaudid] AdvReac Confusion Verified 04/20/23 15:44 Physical Exam The patient appeared well nourished and normally developed. Vital signs as documented. Head exam is unremarkable. No scleral icterus or corneal arcus noted. Neck is without jugular venous distension, thyromegaly, or carotid bruits. Carotid upstrokes are brisk bilaterally. Lungs are clear to auscultation and percussion. Cardiac exam reveals the PMI to be normally sized and situated. Rhythm is regular. First and second heart sounds normal. No murmurs, rubs or gallops. Abdominal exam reveals normal bowel sounds, no masses, no organomegaly and no aortic enlargement. Extremities are nonedematous and both femoral and pedal pulses are normal.Examination of the skin revealed no evidence of significant rashes, suspicious appearing nevi or other concerning lesions.Neurologically, the patient is awake and alert and the patient does not have any focal neurological deficit. Cranial nerves are essentially intact. Assessment and Plan Plan: Chronic insomnia, likely psychophysiologic and possibly comorbid insomnia related to comorbidities and poor sleep hygiene measures. Underlying obstructive sleep apnea cannot be completely ruled out Chronic fatigue Loud snoring Chronic back pain and 10 on a combination of Willis and Flexeril and gabapentin Hypertension Chronic anxiety/depression maintained on Prozac Acid reflux History of coronary artery disease which is currently inactive and stable Chronic marijuana smoking Chronic tobacco smoke and Plan Discussed with the patient importance of maintaining good sleep hygiene measures Discussed with the patient maintaining regular sleep schedule Continue the combination of Willis Neurontin and Flexeril for chronic back pain and pain control Continue Prozac to be taken in the morning Start the patient on trazodone 100 mg at bedtime. The patient has taken this medication the past with good results in terms of sleep initiation and maintenance Proceed with screening polysomnogram to evaluate for any sleep breathing disorder We'll continue to follow
== END ==
LOC: 3 N SLEEP 14:17
PROVIDERS: ATTEND Internal Medicine Critical Care Medicine
DX: R06.83 Snoring (principal); R53.82 Chronic fatigue, unspecified; G89.29 Other chronic pain; I10 Essential (primary) hypertension; F41.9 Anxiety disorder, unspecified; F32.A Depression, unspecified; K21.9 Gastro-esophageal reflux disease without esophagitis; F17.200 Nicotine dependence, unspecified, uncomplicated; E78.5 Hyperlipidemia, unspecified; I25.2 Old myocardial infarction; I25.10 Atherosclerotic heart disease of native coronary artery without angina pectoris; F51.04 Psychophysiologic insomnia; J20.9 Acute bronchitis, unspecified; Z79.51 Long term (current) use of inhaled steroids; Z88.5 Allergy status to narcotic agent; Z88.8 Allergy status to other drugs, medicaments and biological substances
CPT/HCPCS: 99211

== ENCOUNTER 2023-05-21 02:33 | Emergency (ER) | payer MEDICARE, OTHER ==
[2023-05-21 02:44] VITALS: RESP 18; TEMP 98.3
[2023-05-21] MEDS ORDERED: HYDROcodone/APAP 7.5-325MG 1 EACH TAB PO ONE (02:56)
--- NOTE | 2023-05-21 03:23 | ED ---
General Adult HPI - General Chief complaint: Recheck/Abnormal Lab/Rx Stated complaint: withdrawal symptoms Time Seen by Provider: 05/21/23 02:45 Source: patient, RN notes reviewed, old records reviewed Mode of arrival: ambulatory Limitations: no limitations - History of Present Illness Initial comments: 47-year-old male who is presenting for medication refill. Patient states that he is out of his [place] that his roommate has told this medication. He also states that he is he does not currently have access to his other medications but that the police are working on obtaining these from his girlfriend's house. He states that he will have him in the morning. He denies any new physical complaint, states he just has his chronic pain. Chest pain or dyspnea. No abdominal pain. - Related Data Home Medications Medication Instructions Recorded Confirmed Acetaminophen Tab [Tylenol] 500 mg PO BID PRN 12/10/22 04/20/23 Albuterol Inhaler [Ventolin Hfa 2 puff INHALATION RT-Q4H PRN 12/10/22 04/20/23 Inhaler] Celecoxib [CeleBREX] 100 mg PO BID 12/10/22 04/20/23 Folic Acid 1 mg PO DAILY 12/10/22 04/20/23 Gabapentin 600 mg PO TID 12/10/22 04/20/23 HYDROcodone/APAP 7.5-325MG [[place] 1 tab PO BID PRN 12/10/22 04/20/23 7.5-325] Omeprazole 40 mg PO DAILY 12/10/22 04/20/23 Sucralfate [Carafate] 1 gm PO Q12H 12/10/22 04/20/23 Tamsulosin [Flomax] 0.8 mg PO HS 12/10/22 04/20/23 busPIRone HCL 15 mg PO TID 12/10/22 04/20/23 carvediloL [Coreg] 6.25 mg PO BID-W/MEALS 12/10/22 04/20/23 hydrOXYzine HCL [Atarax] 50 mg PO DAILY PRN 12/10/22 04/20/23 Atorvastatin [Lipitor] 40 mg PO HS 02/03/23 04/20/23 Losartan Potassium [Cozaar] 100 mg PO DAILY 02/03/23 04/20/23 Cyclobenzaprine [Flexeril] 10 mg PO BID PRN 04/20/23 04/20/23 Docusate [Colace] 100 mg PO BID 04/20/23 04/20/23 FLUoxetine HCL [PROzac] 20 mg PO DAILY 04/20/23 04/20/23 Fluticasone Propion/Salmeterol 2 puff INHALATION RT-BID 04/20/23 04/20/23 [Advair Hfa 115-21 Mcg Inhaler] Nicotine 14Mg/24Hr Patch [Habitrol] 1 patch TRANSDERM DAILY 04/20/23 04/20/23 Nitroglycerin Sl Tabs [Nitrostat] 0.4 mg SL Q5M PRN 04/20/23 04/20/23 amLODIPine [Norvasc] 10 mg PO DAILY 04/20/23 04/20/23 Allergies Allergy/AdvReac Type Severity Reaction Status Date / Time tramadol Allergy Severe Itching Verified 05/21/23 02:38 hydromorphone [From Dilaudid] AdvReac Confusion Verified 05/21/23 02:38 Review of Systems ROS Statement: Those systems with pertinent positive or pertinent negative responses have been documented in the HPI. ROS Other: All systems not noted in ROS Statement are negative. Past Medical History Past Medical History: Coronary Artery Disease (CAD), Hyperlipidemia, Hypertension, Myocardial Infarction ([place]) Additional Past Medical History / Comment(s): Recent bronchitis, states he had a withdrawl seizure Last Myocardial Infarction Date:: 2020 History of Any Multi-Drug Resistant Organisms: None Reported Past Surgical History: Cholecystectomy, Heart Catheterization Past Anesthesia/Blood Transfusion Reactions: No Reported Reaction Additional Past Anesthesia/Blood Transfusion Reaction / Comment(s): Pt has never had surgery. Past Psychological History: Anxiety, Bipolar, Depression, Panic Disorder Smoking Status: Current every day smoker Past Alcohol Use History: Daily, Heavy Past Drug Use History: Marijuana - Past Family History Father Family Medical History: Myocardial Infarction ([place]) Additional Family Medical History / Comment(s): Father of a [place] at the age of 41 yrs. Mother Family Medical History: Diabetes Mellitus General Exam Limitations: no limitations General appearance: alert, in no apparent distress Head exam: Present: atraumatic, normocephalic Eye exam: Present: normal appearance, PERRL ENT exam: Present: normal exam Neck exam: Present: normal inspection. Absent: tenderness, meningismus Respiratory exam: Present: normal lung sounds bilaterally. Absent: respiratory distress Cardiovascular Exam: Present: regular rate, normal rhythm GI/Abdominal exam: Present: soft. Absent: distended, tenderness Extremities exam: Present: normal inspection, normal capillary refill. Absent: pedal edema Neurological exam: Present: alert, oriented X3, CN II-XII intact. Absent: motor sensory deficit Psychiatric exam: Present: normal mood. Absent: homicidal ideation, suicidal ideation Skin exam: Present: warm, dry, intact. Absent: cyanosis, diaphoretic Course Vital Signs 05/21/23 05/21/23 02:38 03:00 Temperature 98.3 F Pulse Rate 75 78 Respiratory 18 18 Rate Blood Pressure 169/93 160/98 O2 Sat by Pulse 98 98 Oximetry - Reevaluation(s) Reevaluation #1: 05/21/23 03:20 Patient states that the pharmacy was told that he cannot fill his [place] until May 30. And patient also states he has an appointment with his quill machine operator in the morning. Medical Decision Making - Medical Decision Making Was pt. sent in by a medical professional or institution (, PA, SUPERVISOR PRODUCT INSPECTION, urgent care, hospital, or detention...) When possible be specific @ -No Did you speak to anyone other than the patient for history (EMS, parent, family, police, friend...)? What history was obtained from this source @ -No Did you review nursing and triage notes (agree or disagree)? Why? @ -I reviewed and agree with nursing and triage notes Were old charts reviewed (outside hosp., previous admission, EMS record, old EKG, old radiological studies, urgent care reports/EKG's, detention records)? Report findings @ -No old charts were reviewed Differential Diagnosis (chest pain, altered mental status, abdominal pain women, abdominal pain men, vaginal bleeding, weakness, fever, dyspnea, syncope, headache, dizziness, GI bleed, back pain, seizure, CVA, palpatations, mental health, musculoskeletal)? @ -Medication refill EKG interpreted by me (3pts min.). @ -As above X-rays interpreted by me (1pt min.). @ -None done CT interpreted by me (1pt min.). @ -None done U/S interpreted by me (1pt. min.). @ -None done What testing was considered but not performed or refused? (CT, X-rays, U/S, labs)? Why? @ -None What meds were considered but not given or refused? Why? @ -None Did you discuss the management of the patient with other professionals (professionals i.e. , PA, SUPERVISOR PRODUCT INSPECTION, lab, RT, psych nurse, healthcare social worker, rn assessment, teacher, disabilities services officer, case managers)? Give summary @ -No Was smoking cessation discussed for >3mins.? @ -No Was critical care preformed (if so, how long)? @ -No Were there social determinants of health that impacted care today? How? (Homelessness, low income, unemployed, alcoholism, drug addiction, transport ation, low edu. Level, literacy, decrease access to med. care, fci, rehab)? @ -No Was there de-escalation of care discussed even if they declined (Discuss DNR or withdrawal of care, Hospice)? DNR status @ -No What co-morbidities impacted this encounter? (DM, HTN, Smoking, COPD, CAD, Cancer, CVA, ARF, Chemo, Hep., AIDS, mental health diagnosis, sleep apnea, morbid obesity)? @ -[Hypertension, chronic pain Was patient admitted / discharged? Hospital course, mention meds given and rou te, prescriptions, significant lab abnormalities, going to OR and other pertinent info. @ -47-year-old male with request for refill of his [place]. Given that the pharmacy has instructed that the patient cannot receive a refill until the I did provide the patient with one [place] in the emergency department. He states that his other medications will be available to him in the morning. He states he has an appointment with quill machine operator as well. Patient is allowed to sleep in the emergency department for several hours and discharged in stable condition. Undiagnosed new problem with uncertain prognosis? @ -No Drug Therapy requiring intensive monitoring for toxicity (Heparin, Nitro, Insulin, Cardizem)? @ -No Were any procedures done? @ -No Diagnosis/symptom? @ -Medication refill Acute, or Chronic, or Acute on Chronic? @ -[Acute Uncomplicated (without systemic symptoms) or Complicated (systemic symptoms)? @ -default Side effects of treatment? @ -No Exacerbation, Progression, or Severe Exacerbation? @ -No Poses a threat to life or bodily function? How? (Chest pain, [place], [place], pneumonia, PE, COPD, DKA, ARF, appy, cholecystitis, CVA, Diverticulitis, Homicidal, Suicidal, threat to staff... and all critical care pts) @ -No Disposition Clinical Impression: Encounter for medication refill Disposition: HOME SELF-CARE Condition: Fair Instructions (If sedation given, give patient instructions): Medicine Refill (ED) Is patient prescribed a controlled substance at d/c from ED?: No Referrals: Rishabh Mcdowell MD [Primary Care Provider] - 1-2 days Time of Disposition: 06:00
[2023-05-21 03:51] VITALS: BP 165/96; PULSE 84
== END 2023-05-21 05:38 | disposition home or self-care (01) ==
LOC: EC 02:33
DX: Z76.0 Encounter for issue of repeat prescription (principal); I10 Essential (primary) hypertension; I25.10 Atherosclerotic heart disease of native coronary artery without angina pectoris; I25.2 Old myocardial infarction; E78.5 Hyperlipidemia, unspecified; F41.9 Anxiety disorder, unspecified; F31.9 Bipolar disorder, unspecified; F17.200 Nicotine dependence, unspecified, uncomplicated; F12.90 Cannabis use, unspecified, uncomplicated; Z79.899 Other long term (current) drug therapy; Z88.5 Allergy status to narcotic agent; Z88.8 Allergy status to other drugs, medicaments and biological substances
CPT/HCPCS: 99283

== ENCOUNTER 2023-05-31 08:18 | Inpatient (IN) | payer MEDICARE, MEDICAID ==
--- NOTE | 2023-05-31 09:02 | ED ---
General Adult HPI - General Chief complaint: Psychiatric Symptoms Stated complaint: mental health-petition Time Seen by Provider: 05/31/23 08:30 Source: police, RN notes reviewed, old records reviewed Mode of arrival: ambulatory Limitations: no limitations - History of Present Illness Initial comments: Patient is a 47-year-old male who presents emergency Department after being petitioned by police for homicidal statements and stating he was homicidal. He states he wants to hurt anyone who has wronged him.. Patient endorses the statements. Denies suicidal statements. Denies hallucinations. States he hasn't slept despite taking trazodone at home. Denies any other acute complaints at this time other than the homicidal thoughts. He is compliant and cooperative at this time. Presents for psychiatric evaluation. 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 - Related Data Home Medications Medication Instructions Recorded Confirmed Acetaminophen Tab [Tylenol] 500 mg PO BID PRN 12/10/22 05/31/23 Albuterol Inhaler [Ventolin Hfa 2 puff INHALATION RT-Q4H PRN 12/10/22 05/31/23 Inhaler] Celecoxib [CeleBREX] 100 mg PO BID 12/10/22 05/31/23 Folic Acid 1 mg PO DAILY 12/10/22 05/31/23 Gabapentin 600 mg PO TID 12/10/22 05/31/23 HYDROcodone/APAP 7.5-325MG [[place] 1 tab PO BID PRN 12/10/22 05/31/23 7.5-325] Omeprazole 40 mg PO DAILY 12/10/22 05/31/23 Sucralfate [Carafate] 1 gm PO Q12H 12/10/22 05/31/23 Tamsulosin [Flomax] 0.8 mg PO HS 12/10/22 05/31/23 busPIRone HCL 15 mg PO TID 12/10/22 05/31/23 carvediloL [Coreg] 6.25 mg PO BID-W/MEALS 12/10/22 05/31/23 hydrOXYzine HCL [Atarax] 50 mg PO DAILY PRN 12/10/22 05/31/23 Atorvastatin [Lipitor] 40 mg PO HS 02/03/23 05/31/23 Losartan Potassium [Cozaar] 100 mg PO DAILY 02/03/23 05/31/23 Cyclobenzaprine [Flexeril] 10 mg PO BID PRN 04/20/23 05/31/23 Docusate [Colace] 100 mg PO BID 04/20/23 05/31/23 FLUoxetine HCL [PROzac] 20 mg PO DAILY 04/20/23 05/31/23 Fluticasone Propion/Salmeterol 2 puff INHALATION RT-BID 04/20/23 05/31/23 [Advair Hfa 115-21 Mcg Inhaler] Nicotine 14Mg/24Hr Patch [Habitrol] 1 patch TRANSDERM DAILY 04/20/23 05/31/23 Nitroglycerin Sl Tabs [Nitrostat] 0.4 mg SL Q5M PRN 04/20/23 05/31/23 amLODIPine [Norvasc] 10 mg PO DAILY 04/20/23 05/31/23 traZODone HCL [Desyrel] 100 mg PO HS 05/31/23 05/31/23 Allergies Allergy/AdvReac Type Severity Reaction Status Date / Time tramadol Allergy Severe Itching Verified 05/31/23 08:29 morphine Allergy Unknown Verified 05/31/23 21:27 hydromorphone [From Dilaudid] AdvReac Confusion Verified 05/31/23 08:29 Review of Systems ROS Statement: Those systems with pertinent positive or pertinent negative responses have been documented in the HPI. Review of Systems: CONST: Denies fever EYES: Denies blurry vision ENT: Denies nasal congestion C/V: Denies Chest pain RESP: Denies shortness of breath GI: Denies abdominal pain : Denies dysuria SKIN: Denies rash. MSK: Denies joint pain. NEURO: Denies headache PSYCH: Denies suicidal ideations/plans/attempts. Denies visual or auditory hallucinations. He endorses homicidal ideations but denies plans or attempts. ROS Other: All systems not noted in ROS Statement are negative. Past Medical History Past Medical History: Coronary Artery Disease (CAD), Hyperlipidemia, Hypertension, Myocardial Infarction ([place]) Additional Past Medical History / Comment(s): Recent bronchitis, states he had a withdrawl seizure Last Myocardial Infarction Date:: 2020 History of Any Multi-Drug Resistant Organisms: None Reported Past Surgical History: Cholecystectomy, Heart Catheterization Past Anesthesia/Blood Transfusion Reactions: No Reported Reaction Additional Past Anesthesia/Blood Transfusion Reaction / Comment(s): Pt has never had surgery. Past Psychological History: Anxiety, Bipolar, Depression, Panic Disorder Smoking Status: Current every day smoker Past Alcohol Use History: Daily, Heavy Past Drug Use History: Marijuana - Past Family History Father Family Medical History: Myocardial Infarction ([place]) Additional Family Medical History / Comment(s): Father of a [place] at the age of 41 yrs. Mother Family Medical History: Diabetes Mellitus General Exam - General Exam Comments Initial Comments: General: Appears anxious but otherwise in no acute distress. HEAD: Normal with no signs of head trauma. EYES: PERRLA, EOMI, conjunctiva normal, no discharge. ENT: Hearing grossly intact, normal oropharynx. RESPIRATORY: Clear breath sounds bilaterally. No wheezes, rales, or rhonchi. C/V: Regular rate and rhythm. S1 and S2 auscultated, no edema, peripheral pulses 2+ and intact throughout ABD: Abd is soft, nontender, nondistended EXT: Normal range of motion, no obvious deformity SKIN: No rashes or lesions observed on exposed skin. NEURO: Alert and oriented 4. Limitations: no limitations Course Vital Signs 05/31/23 05/31/23 05/31/23 08:27 08:39 14:29 Temperature 98.4 F Pulse Rate 96 110 H 86 Pulse Rate [ Right] Respiratory 18 20 16 Rate Blood Pressure 150/95 140/90 145/86 Blood Pressure [Right Arm] O2 Sat by Pulse 97 98 98 Oximetry 05/31/23 05/31/23 05/31/23 16:00 17:47 20:11 Temperature 98 F 97.7 F Pulse Rate 76 76 Pulse Rate [ 85 Right] Respiratory 16 20 22 Rate Blood Pressure 175/86 175/86 Blood Pressure 168/79 [Right Arm] O2 Sat by Pulse 98 98 97 Oximetry Medical Decision Making - Medical Decision Making Was pt. sent in by a medical professional or institution ([employer], RN PALLIATIVE CARE, urgent care, hospital, or retirement...) When possible be specific @ -No Did you speak to anyone other than the patient for history (EMS, parent, family, police, friend...)? What history was obtained from this source @ -No Did you review nursing and triage notes (agree or disagree)? Why? @ -I reviewed and agree with nursing and triage notes Were old charts reviewed (outside hosp., previous admission, EMS record, old EKG, old radiological studies, urgent care reports/EKG's, retirement records)? Report findings @ -No old charts were reviewed Differential Diagnosis (chest pain, altered mental status, abdominal pain women, abdominal pain men, vaginal bleeding, weakness, fever, dyspnea, syncope, headache, dizziness, GI bleed, back pain, seizure, CVA, palpatations, mental health, musculoskeletal)? @ -Differential Mental Health Depression, anxiety, bipolar, psychosis, schizophrenia, borderline personality, situational depression, adjustment disorder, behavioral disorder, brain tumor, malingering, substance abuse, encephalopathy, medication reaction, dementia, hypothyroidism, degenerative neurologic disorder, lupus.... This is not meant to be all-inclusive list EKG interpreted by me (3pts min.). @ -None done X-rays interpreted by me (1pt min.). @ -None done CT interpreted by me (1pt min.). @ -None done U/S interpreted by me (1pt. min.). @ -None done What testing was considered but not performed or refused? (CT, X-rays, U/S, labs)? Why? @ -None What meds were considered but not given or refused? Why? @ -None Did you discuss the management of the patient with other professionals (professionals i.e. , PA, RN PALLIATIVE CARE, lab, RT, psych nurse, community mental health social worker, practice physician, teacher, chief accounting officer, piano case maker)? Give summary @ -EPS notified of the consult. EPS recommended inpatient admission and I completed clinical certificate at the request. Was smoking cessation discussed for >3mins.? @ -No Was critical care preformed (if so, how long)? @ -No Were there social determinants of health that impacted care today? How? (Homelessness, low income, unemployed, alcoholism, drug addiction, transportation, low edu. Level, literacy, decrease access to med. care, care home, rehab)? @ -No Was there de-escalation of care discussed even if they declined (Discuss DNR or withdrawal of care, Hospice)? DNR status @ -No What co-morbidities impacted this encounter? (DM, HTN, Smoking, COPD, CAD, Cancer, CVA, ARF, Chemo, Hep., AIDS, mental health diagnosis, sleep apnea, morb id obesity)? @ -None Was patient admitted / discharged? Hospital course, mention meds given and route, prescriptions, significant lab abnormalities, going to OR and other pertinent info. @ -Based on the patient's presentation and physical exam, he requires psychiatric evaluation. Patient was placed in green scrubs. Sitter was ordered. BAT is 0. Vital signs within acceptable limits. UDS is pending. At this time, patient is medically cleared for his evaluation by psychiatry. Disposition is pending psychiatric evaluation. EPS is notified of the consult.Patient's UDS is positive for opiates, benzos, marijuana. EPS evaluated the patient and determined that he does meet inpatient criteria. Clinical certificate was completed by myself. Patient will be admitted to inpatient psychiatry. Undiagnosed new problem with uncertain prognosis? @ -No Drug Therapy requiring intensive monitoring for toxicity (Heparin, Nitro, Insulin, Cardizem)? @ -No Were any procedures done? @ -No Diagnosis/symptom? @ -Encounter for psychiatric evaluation, petitioned, homicidal statements Acute, or Chronic, or Acute on Chronic? @ -Acute Uncomplicated (without systemic symptoms) or Complicated (systemic symptoms)? @ -Uncomplicated Side effects of treatment? @ -No Exacerbation, Progression, or Severe Exacerbation? @ -No Poses a threat to life or bodily function? How? (Chest pain, [place], [place], pneumonia, PE, COPD, DKA, ARF, appy, cholecystitis, CVA, Diverticulitis, Homicidal, Suicidal, threat to staff... and all critical care pts) @ -Yes - Lab Data Result diagrams: 06/01/23 11:16 06/01/23 11:16 Lab Results 05/31/23 05/31/23 05/31/23 Range/Units 08:39 08:39 15:18 Urine Color Yellow Urine Appearance Clear (Clear) Urine pH 6.0 (5.0-8.0) Ur Specific [place] 1.024 (1.001-1.035) Urine Protein 1+ H (Negative) Urine Glucose (UA) Negative (Negative) Urine Ketones 1+ H (Negative) Urine Blood Negative (Negative) Urine Nitrite Negative (Negative) Urine Bilirubin Negative (Negative) Urine Urobilinogen 2.0 (<2.0) mg/dL Ur Leukocyte Esterase Negative (Negative) Urine RBC 1 (0-5) /hpf Urine WBC 2 (0-5) /hpf Ur Squamous Epith Cells 1 (0-4) /hpf Hyaline Casts 39 H (0-2) /lpf Urine Mucus Rare H (None) /hpf Urine Opiates Screen Detected H (NotDetected) Ur Oxycodone Screen Not Detected (NotDetected) Urine Methadone Screen Not Detected (NotDetected) Ur Propoxyphene Screen Not Detected (NotDetected) Ur Barbiturates Screen Not Detected (NotDetected) U Tricyclic Antidepress Not Detected (NotDetected) Ur Phencyclidine Scrn Not Detected (NotDetected) Ur Amphetamines Screen Not Detected (NotDetected) U Methamphetamines Scrn Not Detected (NotDetected) U Benzodiazepines Scrn Detected H (NotDetected) Urine Cocaine Screen Not Detected (NotDetected) U Marijuana (THC) Screen Detected H (NotDetected) Influenza Type A (PCR) Not Detected (Not Detectd) Influenza Type B (PCR) Not Detected (Not Detectd) RSV (PCR) Not Detected (Not Detectd) SARS-CoV-2 (PCR) Not Detected (Not Detectd) Disposition Clinical Impression: Homicidal ideation, Encounter for psychiatric assessment Disposition: ADMITTED IP TO THIS HOSP Condition: Stable
[2023-05-31 09:18] LABS: Amphetamine Screen,Urine Not Detected (NotDetected); Barbiturate Screen,Urine Not Detected (NotDetected); Benzodiazepines Screen,Urine Detected (NotDetected); Cocaine Screen,Urine Not Detected (NotDetected); Methadone Screen, Urine Not Detected (NotDetected); Opiate Screen,Urine Detected (NotDetected); Oxycodone Screen, Urine Not Detected (NotDetected); Phencyclidine Screen,Urine Not Detected (NotDetected); Tricyclic Antidepressant,Urine Not Detected (NotDetected); Urn Cannabinoid Scrn Detected (NotDetected)
[2023-05-31] MEDS ORDERED: IBUPROFEN 600 MG TAB PO PRN (22:19)
[2023-05-31] MEDS ORDERED: ACETAMINOPHEN TAB 325 MG TAB PO PRN (22:19)
[2023-05-31] MEDS ORDERED: HALOPERIDOL LACTATE 5 MG/ML 1 ML VIAL IM PRN (22:19)
[2023-05-31] MEDS ORDERED: MAG HYDROX/AL HYDROX/SIMETH 30 ML CUP PO PRN (22:19)
[2023-05-31] MEDS ORDERED: MAGNESIUM HYDROXIDE 2,400 MG/30 ML CUP PO PRN (22:19)
[2023-05-31] MEDS ORDERED: haloperidoL 5 MG TAB PO PRN (22:19)
[2023-05-31] MEDS ORDERED: diphenhydrAMINE 25 MG CAP PO PRN (22:19)
[2023-05-31] MEDS ORDERED: LORazepam 1 MG TAB PO PRN (22:19)
[2023-05-31] MEDS ORDERED: LORazepam 2 MG/ML INJ IM PRN (22:19)
[2023-05-31] MEDS ORDERED: NITROGLYCERIN SL TABS 0.4 MG TAB SUBLINGUAL PRN (22:32)
[2023-06-01 02:28] LABS: Appearance,Urine Clear (Clear); Bilirubin,Urine Negative (Negative); Blood,Urine Negative (Negative); Glucose,Urine (UA) Negative (Negative); Hyaline Casts,Urine 39 /lpf (0-2); Ketones,Urine 1+ (Negative); Leukocyte Esterase,Urine Negative (Negative); Mucus,Urine Rare /hpf; Nitrite,Urine Negative (Negative); Protein,Urine 1+ (Negative); RBC,Urine 1 /hpf (0-5); Specific Gravity,Urine 1.024 (1.001-1.035); Squamous Epithelial Cell,Urine 1 /hpf (0-4); WBC,Urine 2 /hpf (0-5)
[2023-06-01 02:34] LABS: Color,Urine Yellow
[2023-06-01] MEDS: MELOXICAM 7.5 MG TAB PO SCH (07:55)
[2023-06-01] MEDS: DOCUSATE 100 MG CAP PO SCH ×2 (07:58→20:06)
[2023-06-01] MEDS: LOSARTAN 50 MG TAB PO SCH (07:58)
[2023-06-01] MEDS: amLODIPine 10 MG TAB PO SCH (07:58)
[2023-06-01] MEDS: PANTOPRAZOLE 40 MG TABLET PO SCH (07:58)
[2023-06-01] MEDS: carvediloL 6.25 MG TAB PO SCH ×2 (07:58→20:05)
[2023-06-01] MEDS: FOLIC ACID 1 MG TAB PO SCH (07:58)
[2023-06-01] MEDS: GABAPENTIN 300 MG CAP PO SCH ×3 (07:58→20:06)
[2023-06-01] MEDS: SUCRALFATE 1 GM TAB PO SCH ×2 (07:58→20:05)
[2023-06-01] MEDS: NICOTINE 14MG/24HR PATCH TRANSDERM SCH (10:17)
[2023-06-01 10:56] VITALS: BMI 21.8
[2023-06-01] MEDS: ALBUTEROL INHALER 60 PUFF/8 GM INHALER (MHU) INHALATION PRN ×3 (11:33→12:12)
[2023-06-01 11:50] LABS: Basophils % (A) 0 %; Eosinophils # (A) 0.1 k/uL (0-0.7); Eosinophils % (A) 2 %; HCT 38.8 % (39.0-53.0); HGB 12.7 gm/dL (13.0-17.5); Lymphocytes # (A) 1.7 k/uL (1.0-4.8); Lymphocytes % (A) 22 %; MCH 30.5 pg (25.0-35.0); MCHC 32.6 g/dL (31.0-37.0); MCV 93.6 fL (80.0-100.0); Mean Platelet Volume 8.3; Monocytes # (A) 0.4 k/uL (0-1.0); Monocytes % (A) 5 %; Neutrophils # (A) 5.1 k/uL (1.3-7.7); Neutrophils % (A) 69 %; Platelet Count 266 k/uL (150-450); RBC 4.15 m/uL (4.30-5.90); RDW 13.1 % (11.5-15.5); WBC 7.5 k/uL (3.8-10.6)
[2023-06-01 12:37] LABS: ALT 23 U/L (4-49); AST 33 U/L (17-59); African American GFR (CKD) >90 (>60 ml/min/1.73 sqM); Albumin 3.9 g/dL (3.5-5.0); Alkaline Phosphatase 64 U/L (38-126); Anion Gap 5 mmol/L; Bilirubin, Delta 0.3 mg/dL (0.0-0.2); Bilirubin,Unconjugated 0.3 mg/dL (0.0-1.1); Blood Urea Nitrogen 17 mg/dL (9-20); Calcium 9.6 mg/dL (8.4-10.2); Carbon Dioxide 26 mmol/L (22-30); Chloride 105 mmol/L (98-107); Glucose 95 mg/dL (74-99); Non-African American GFR(CKD) >90 (>60 ml/min/1.73 sqM); Potassium 4.8 mmol/L (3.5-5.1); Sodium 136 mmol/L (137-145); Total Bilirubin 0.6 mg/dL (0.2-1.3); Total Protein 6.6 g/dL (6.3-8.2)
[2023-06-01] MEDS ORDERED: QUEtiapine 50 MG TAB PO STA (12:39)
[2023-06-01] MEDS ORDERED: FLUoxetine HCL 10 MG CAP PO STA (12:40)
--- NOTE | 2023-06-01 13:15 | P.HP ---
Psychiatric H&P - . H&P Date: 06/01/23 History & Physical: Allergies Allergy/AdvReac Type Severity Reaction Status Date / Time tramadol Allergy Severe Itching Verified 05/31/23 08:29 morphine Allergy Unknown Verified 05/31/23 21:27 hydromorphone [From Dilaudid] AdvReac Confusion Verified 05/31/23 08:29 Vital Signs Temp 97.7 F 06/01/23 06:41 Pulse 80 06/01/23 06:41 Resp 18 06/01/23 06:41 BP 211/96 06/01/23 08:06 Pulse Ox 97 06/01/23 06:41 FiO2 Intake & Output 05/31/23 06/01/23 06/01/23 18:59 06:59 18:59 Weight 72.575 kg 63.3 kg 63.3 kg Laboratory Last Values WBC 7.5 k/uL (3.8-10.6) 06/01/23 11:16 RBC 4.15 m/uL (4.30-5.90) L 06/01/23 11:16 Hgb 12.7 gm/dL (13.0-17.5) L 06/01/23 11:16 Hct 38.8 % (39.0-53.0) L 06/01/23 11:16 MCV 93.6 fL (80.0-100.0) 06/01/23 11:16 MCH 30.5 pg (25.0-35.0) 06/01/23 11:16 MCHC 32.6 g/dL (31.0-37.0) 06/01/23 11:16 RDW 13.1 % (11.5-15.5) 06/01/23 11:16 Plt Count 266 k/uL (150-450) 06/01/23 11:16 MPV 8.3 06/01/23 11:16 Neutrophils % 69 % 06/01/23 11:16 Lymphocytes % 22 % 06/01/23 11:16 Monocytes % 5 % 06/01/23 11:16 Eosinophils % 2 % 06/01/23 11:16 Basophils % 0 % 06/01/23 11:16 Neutrophils # 5.1 k/uL (1.3-7.7) 06/01/23 11:16 Lymphocytes # 1.7 k/uL (1.0-4.8) 06/01/23 11:16 Monocytes # 0.4 k/uL (0-1.0) 06/01/23 11:16 Eosinophils # 0.1 k/uL (0-0.7) 06/01/23 11:16 Basophils # 0.0 k/uL (0-0.2) 06/01/23 11:16 Sodium 136 mmol/L (137-145) L 06/01/23 11:16 Potassium 4.8 mmol/L (3.5-5.1) 06/01/23 11:16 Chloride 105 mmol/L (98-107) 06/01/23 11:16 Carbon Dioxide 26 mmol/L (22-30) 06/01/23 11:16 Anion Gap 5 mmol/L 06/01/23 11:16 BUN 17 mg/dL (9-20) 06/01/23 11:16 Creatinine 0.92 mg/dL (0.66-1.25) 06/01/23 11:16 Est GFR (CKD-EPI)AfAm >90 (>60 ml/min/1.73 sqM) 06/01/23 11:16 Est GFR (CKD-EPI)NonAf >90 (>60 ml/min/1.73 sqM) 06/01/23 11:16 Glucose 95 mg/dL (74-99) 06/01/23 11:16 Calcium 9.6 mg/dL (8.4-10.2) 06/01/23 11:16 Total Bilirubin 0.6 mg/dL (0.2-1.3) 06/01/23 11:16 Conjugated Bilirubin 0.0 mg/dL (0.0-0.3) 06/01/23 11:16 Unconjugated Bilirubin 0.3 mg/dL (0.0-1.1) 06/01/23 11:16 Delta Bilirubin 0.3 mg/dL (0.0-0.2) H 06/01/23 11:16 AST 33 U/L (17-59) 06/01/23 11:16 ALT 23 U/L (4-49) 06/01/23 11:16 Alkaline Phosphatase 64 U/L (38-126) 06/01/23 11:16 Total Protein 6.6 g/dL (6.3-8.2) 06/01/23 11:16 Albumin 3.9 g/dL (3.5-5.0) 06/01/23 11:16 TSH 1.480 mIU/L (0.465-4.680) 06/01/23 11:16 Urine Color Yellow 05/31/23 08:39 Urine Appearance Clear (Clear) 05/31/23 08:39 Urine pH 6.0 (5.0-8.0) 05/31/23 08:39 Ur Specific [place] 1.024 (1.001-1.035) 05/31/23 08:39 Urine Protein 1+ (Negative) H 05/31/23 08:39 Urine Glucose (UA) Negative (Negative) 05/31/23 08:39 Urine Ketones 1+ (Negative) H 05/31/23 08:39 Urine Blood Negative (Negative) 05/31/23 08:39 Urine Nitrite Negative (Negative) 05/31/23 08:39 Urine Bilirubin Negative (Negative) 05/31/23 08:39 Urine Urobilinogen 2.0 mg/dL (<2.0) 05/31/23 08:39 Ur Leukocyte Esterase Negative (Negative) 05/31/23 08:39 Urine RBC 1 /hpf (0-5) 05/31/23 08:39 Urine WBC 2 /hpf (0-5) 05/31/23 08:39 Ur Squamous Epith Cells 1 /hpf (0-4) 05/31/23 08:39 Hyaline Casts 39 /lpf (0-2) H 05/31/23 08:39 Urine Mucus Rare /hpf (None) H 05/31/23 08:39 Urine Opiates Screen Detected (NotDetected) H 05/31/23 08:39 Ur Oxycodone Screen Not Detected (NotDetected) 05/31/23 08:39 Urine Methadone Screen Not Detected (NotDetected) 05/31/23 08:39 Ur Propoxyphene Screen Not Detected (NotDetected) 05/31/23 08:39 Ur Barbiturates Screen Not Detected (NotDetected) 05/31/23 08:39 U Tricyclic Antidepress Not Detected (NotDetected) 05/31/23 08:39 Ur Phencyclidine Scrn Not Detected (NotDetected) 05/31/23 08:39 Ur Amphetamines Screen Not Detected (NotDetected) 05/31/23 08:39 U Methamphetamines Scrn Not Detected (NotDetected) 05/31/23 08:39 U Benzodiazepines Scrn Detected (NotDetected) H 05/31/23 08:39 Urine Cocaine Screen Not Detected (NotDetected) 05/31/23 08:39 U Marijuana (THC) Screen Detected (NotDetected) H 05/31/23 08:39 Influenza Type A (PCR) Not Detected (Not Detectd) 05/31/23 15:18 Influenza Type B (PCR) Not Detected (Not Detectd) 05/31/23 15:18 RSV (PCR) Not Detected (Not Detectd) 05/31/23 15:18 SARS-CoV-2 (PCR) Not Detected (Not Detectd) 05/31/23 15:18 06/01/23 13:14 IDENTIFYING DATA: Patient is a single, unemployed 47 year old [place]uasian male with a significant history of Bipolar disorder who presents to our hospital on 05/31/2023 for homicidal ideation HPI: Patient presented to the hospital on 05/31/2023 under petition accompanied by [place] [employer] for verbalizing homicidal threats. As per petition, "Lukas stated he was homicidal to all the people who have done him wrong." He was also noted to be very tangential, grandiose, and pressured in the ED. He was subsequently admitted onto the psychiatric unit. Upon evaluation on the psychiatric unit, the patient reports that he has been awake for the last 3-5 days. He reports that he has these episodes where he is unable to sleep and has high energy. He also reports that he does act out of character during these episodes. He does report increased impulsivity, increased goal-directed activity, and grandiosity. Currently, the patient states that he was brought to the hospital because he was agitated and police became involved. He reports that he has an ex-girlfriend who is currently holding some of his belongings. He wishes to have his belongings return to him. He is vehemently denying any suicidal or homicidal ideation, intention, and/or plan. He is not reporting any auditory or visual hallucinations. He is not reporting any paranoia or other delusions. The patient reports that he has been open with [facility] however has been nonadherent with any outpatient treatment. He is fixated on his medication management, in particular the use of narcotics and benzodiazepines. He is agreeable to voluntary admission onto the psychiatric unit for further stabilization. PAST PSYCHIATRIC HISTORY: Patient has been intrusive diagnosis of bipolar disorder. Patient has been previously prescribed Haldol, Zyprexa, trazodone, BuSpar, and Celexa. He was last admitted onto our psychiatric unit in April 2020. Patient is nonadherent with outpatient follow up with [facility]. Patient denies any history of suicide attempts in the past. PMH: Past Medical History: Coronary Artery Disease (CAD), Hyperlipidemia, Hypertension, Myocardial Infarction ([place]) Additional Past Medical History / Comment(s): Recent bronchitis, states he had a withdrawl seizure Last Myocardial Infarction Date:: 2020 History of Any Multi-Drug Resistant Organisms: None Reported Past Surgical History: Cholecystectomy, Heart Catheterization Past Anesthesia/Blood Transfusion Reactions: No Reported Reaction Additional Past Anesthesia/Blood Transfusion Reaction / Comment(s): Pt has never had surgery. Past Psychological History: Anxiety, Bipolar, Depression, Panic Disorder ALLERGIES: Tramadol, morphine, hydromorphone CHEMICAL DEPENDENCY HISTORY: Smoking Status: Current every day smoker Past Alcohol Use History: Daily, Heavy Past Drug Use History: Marijuana FAMILY PSYCHIATRIC/SUBSTANCE USE HISTORY: The patient reports that he had a nephew commit suicide recently. He also reports family history of bipolar disorder. SOCIAL HISTORY: Patient is currently homeless however states that he has a few places where he can go upon discharge. He reports that his ex-girlfriend currently has some of his belongings. He reports that his 2 older children however he is not sure where they are as he has no custody over them. MENTAL STATUS EXAM: General Appearance: Patient appears to be stated age is alert, directable, and attempts to cooperate. Patient appears to have slightly disheveled hygiene and grooming. Unkempt hair and pathak. Behavior: Patient displays elevated psychomotor activity. Speech: Patient's speech is nonlinear, at times difficult to follow, and rapid. Interruptible, nonpressured, and spontaneous. Mood/Affect: Patient reports their mood is "feeling better." Affect is slightly expansive Suicidality/Homicidality: Patient is vehemently denying any suicidal or homicidal ideation, intention, and/or plan Perceptions: Patient denies any visual hallucinations and denies any auditory hallucinations Though content/process: Patient presents with a flight of ideas. Medication seeking. Memory and concentration: AOX3, grossly intact for the purposes of this session. Can spell "WORLD" backwards Judgment and insight: Fair STRENGTHS/WEAKNESSES: Strength is that the patient is resilient and resourceful. Weakness is that the patient has been chronically prescribed pain medication. INTELLECT: average IMPRESSIONS: Bipolar 2 disorder, hypomanic episode Opiate dependence PLAN: -Patient is admitted under involuntary but converted to voluntary status to MHU for stabilization of psychiatric symptoms and safety. Patient signed adult voluntary form and medication consent and is placed in patient's chart. -Medications : Will start patient on Seroquel 50 mg in the morning and 300 mg at bedtime for mood stabilization Prozac 30 mg by mouth daily for depression Continue gabapentin 600 mg by mouth 3 times a day Continue home medication of [place] -Vistaril and Haldol PRN for agitation/aggression -Patient was counselled on substance abuse and desired to cut back on use -Patient was informed of the risks, benefits and side effects of the medication and patient verbally consented to taking the medications. Patient signed med consent form and was placed in chart. -Internal Medicine consult to perform medical evaluation and physical. -NRT - nicotine patch -SW on board for discharge planning. Encourage patient to participate in groups to work on coping skills. 06/01/23 13:14
[2023-06-01] MEDS: SYMBICORT 160-4.5 MCG INHALER INHALATION SCH ×2 (13:20→20:09)
[2023-06-01] MEDS: HYDROcodone/APAP 7.5-325MG 1 EACH TAB PO PRN (13:37)
[2023-06-01] MEDS: CYCLOBENZAPRINE 10 MG TAB PO PRN (13:39)
[2023-06-01 15:48] LABS: Chol/HDL Ratio 2.71 Ratio; LDL Cholesterol,Calculated 63.4 mg/dL (0.0-131.0)
[2023-06-01] MEDS: BACITRACIN/POLYMYX 500-10,000 UNIT/GM OINT 14 GM TUBE TOPICAL SCH ×2 (17:35→20:11)
[2023-06-01] MEDS: TAMSULOSIN 0.4 MG CAP.ER.24H PO SCH (20:04)
[2023-06-01] MEDS: ATORVASTATIN 40 MG TAB PO SCH (20:05)
[2023-06-01] MEDS: QUEtiapine 100 MG TAB PO SCH (20:06)
--- NOTE | 2023-06-02 05:56 | P.MDCNMH ---
History of Present Illness H&P Date: 06/02/23 Chief Complaint: Medical evaluation 47-year-old male with coronary artery disease, hyperlipidemia, hypertension Patient coming in for evaluation after being petitioned by police for homicidal statements, in the ED he stated that he wanted to harm anyone who wronged him in the past he denies any suicidal ideation denies any hallucinations. The patient currently denies any medical concerns , denies any fever, chills, cough, sore throat, chest pain , trouble breathing , nausea , vomiting, abd pain , changes in urinary or bowel habits. Admits to tobacco smoking marijuana and occasional alcohol review of systems Pertinent positives as noted in HPI. All other systems were reviewed and are negative on exam Constitutional: No acute distress, conversant, pleasant Eyes: Anicteric sclerae, moist conjunctiva, Pupils equal round reactive to light Lungs: Clear to auscultation Clear to percussion Normal respiratory effort, no accessory muscle use Cardiovascular: Heart regular in rate and rhythm, No murmurs, gallops, or rubs No peripheral edema Abdominal: Soft Nontender, no guarding, rebound or rigidity Abdomen moving with respiration Normoactive bowel sounds Extremities: No digital cyanosis No clubbing Pedal pulses intact and symmetrical Radial pulses intact and symmetrical No calf tenderness Psychiatric: Alert and oriented to person, place and time Appropriate affect fair judgement Neuro Muscles Strength 5/5 in all 4 extremities Sensation to light touch grossly present throughout Past Medical History Past Medical History: Coronary Artery Disease (CAD), Hyperlipidemia, Hypertension, Myocardial Infarction ([place]) Additional Past Medical History / Comment(s): Recent bronchitis, states he had a withdrawl seizure Last Myocardial Infarction Date:: 2020 History of Any Multi-Drug Resistant Organisms: None Reported Past Surgical History: Cholecystectomy, Heart Catheterization Past Anesthesia/Blood Transfusion Reactions: No Reported Reaction Additional Past Anesthesia/Blood Transfusion Reaction / Comment(s): Pt has never had surgery. Past Psychological History: Anxiety, Bipolar, Depression, Panic Disorder Smoking Status: Current every day smoker Past Alcohol Use History: Daily, Heavy Past Drug Use History: Marijuana - Past Family History Father Family Medical History: Myocardial Infarction ([place]) Additional Family Medical History / Comment(s): Father of a [place] at the age of 41 yrs. Mother Family Medical History: Diabetes Mellitus Medications and Allergies Home Medications Medication Instructions Recorded Confirmed Type Acetaminophen Tab [Tylenol] 500 mg PO BID PRN 12/10/22 05/31/23 History Albuterol Inhaler [Ventolin Hfa 2 puff INHALATION RT-Q4H PRN 12/10/22 05/31/23 History Inhaler] Celecoxib [CeleBREX] 100 mg PO BID 12/10/22 05/31/23 History Folic Acid 1 mg PO DAILY 12/10/22 05/31/23 History Gabapentin 600 mg PO TID 12/10/22 05/31/23 History HYDROcodone/APAP 7.5-325MG [[place] 1 tab PO BID PRN 12/10/22 05/31/23 History 7.5-325] Omeprazole 40 mg PO DAILY 12/10/22 05/31/23 History Sucralfate [Carafate] 1 gm PO Q12H 12/10/22 05/31/23 History Tamsulosin [Flomax] 0.8 mg PO HS 12/10/22 05/31/23 History busPIRone HCL 15 mg PO TID 12/10/22 05/31/23 History carvediloL [Coreg] 6.25 mg PO BID-W/MEALS 12/10/22 05/31/23 History hydrOXYzine HCL [Atarax] 50 mg PO DAILY PRN 12/10/22 05/31/23 History Atorvastatin [Lipitor] 40 mg PO HS 02/03/23 05/31/23 History Losartan Potassium [Cozaar] 100 mg PO DAILY 02/03/23 05/31/23 History Cyclobenzaprine [Flexeril] 10 mg PO BID PRN 04/20/23 05/31/23 History Docusate [Colace] 100 mg PO BID 04/20/23 05/31/23 History FLUoxetine HCL [PROzac] 20 mg PO DAILY 04/20/23 05/31/23 History Fluticasone Propion/Salmeterol 2 puff INHALATION RT-BID 04/20/23 05/31/23 History [Advair Hfa 115-21 Mcg Inhaler] Nicotine 14Mg/24Hr Patch [Habitrol] 1 patch TRANSDERM DAILY 04/20/23 05/31/23 History Nitroglycerin Sl Tabs [Nitrostat] 0.4 mg SL Q5M PRN 04/20/23 05/31/23 History amLODIPine [Norvasc] 10 mg PO DAILY 04/20/23 05/31/23 History traZODone HCL [Desyrel] 100 mg PO HS 05/31/23 05/31/23 History Allergies Allergy/AdvReac Type Severity Reaction Status Date / Time tramadol Allergy Severe Itching Verified 05/31/23 08:29 morphine Allergy Unknown Verified 05/31/23 21:27 hydromorphone [From Dilaudid] AdvReac Confusion Verified 05/31/23 08:29 Physical Exam Vitals: Vital Signs Temp Pulse Resp BP Pulse Ox 06/01/23 21:59 54 L 107/54 06/01/23 21:14 71 96/54 06/01/23 20:13 71 17 132/62 96 06/01/23 08:06 211/96 06/01/23 06:41 97.7 F 80 18 132/89 97 Intake and Output 06/01/23 06/01/23 06/02/23 14:59 22:59 06:59 Other: Weight 63.3 kg Cranial Nerve Examination - Cranial Nerves Cranial Nerve II- Optic: Intact Cranial Nerve III- Oculomotor: Intact Cranial Nerve IV- Trochlear: Intact Cranial Nerve V- Trigeminal: Intact Cranial Nerve - Abducens: Intact Cranial Nerve VII- Facial: Intact Cranial Nerve VIII- Auditory: Intact Cranial Nerve IX- Glossopharyngeal: Intact Cranial Nerve X- Vagus: Intact Cranial Nerve XI- Accessory: Intact Cranial Nerve XII- Hypoglossal: Intact Results CBC & Chem 7: 06/01/23 11:16 06/01/23 11:16 Labs: Abnormal Lab Results - Last 24 Hours (Table) 06/01/23 06/01/23 Range/Units 11:16 11:16 RBC 4.15 L (4.30-5.90) m/uL Hgb 12.7 L (13.0-17.5) gm/dL Hct 38.8 L (39.0-53.0) % Sodium 136 L (137-145) mmol/L Delta Bilirubin 0.3 H (0.0-0.2) mg/dL Assessment and Plan Assessment: Anxiety and homicidal ideation Management per psych Chronic conditions Hypertension Coronary artery disease Continue with home medications amlodipine, Coreg, losartan Continue statin Blood work reviewed unremarkable Acute respiratory: Negative for Covid RSV and influenza Renal function unremarkable TSH unremarkable 1.4 Hemoglobin 12.7, white count 7.5 Lipid panel overall unremarkable LDL in the 60s Stable from medical standpoint Thank you for this consultation
[2023-06-02 06:58] VITALS: RESP 16
[2023-06-02] MEDS: DOCUSATE 100 MG CAP PO SCH ×2 (08:35→20:51)
[2023-06-02] MEDS: NICOTINE 14MG/24HR PATCH TRANSDERM SCH (08:35)
[2023-06-02] MEDS: MELOXICAM 7.5 MG TAB PO SCH (08:36)
[2023-06-02] MEDS: carvediloL 6.25 MG TAB PO SCH ×2 (08:36→18:22)
[2023-06-02] MEDS: SUCRALFATE 1 GM TAB PO SCH ×2 (08:36→18:22)
[2023-06-02] MEDS: QUEtiapine 25 MG TAB PO SCH (08:36)
[2023-06-02] MEDS: amLODIPine 10 MG TAB PO SCH (08:36)
[2023-06-02] MEDS: GABAPENTIN 300 MG CAP PO SCH ×3 (08:36→20:51)
[2023-06-02] MEDS: LOSARTAN 50 MG TAB PO SCH (08:36)
[2023-06-02] MEDS: FOLIC ACID 1 MG TAB PO SCH (08:37)
[2023-06-02] MEDS: PANTOPRAZOLE 40 MG TABLET PO SCH (08:37)
[2023-06-02] MEDS: FLUoxetine HCL 20 MG CAP PO SCH (08:37)
[2023-06-02] MEDS: HYDROcodone/APAP 7.5-325MG 1 EACH TAB PO PRN ×2 (08:39→19:00)
[2023-06-02] MEDS: SYMBICORT 160-4.5 MCG INHALER INHALATION SCH ×2 (08:58→21:15)
[2023-06-02] MEDS: BACITRACIN/POLYMYX 500-10,000 UNIT/GM OINT 14 GM TUBE TOPICAL SCH ×2 (08:58→20:51)
--- NOTE | 2023-06-02 11:23 | P.PN ---
Progress Note - Text Progress Note Date: 06/02/23 Interval History: Patient was seen wandering the hallways and was directable and agreeable to speak with comic book writer in the office. Currently, the patient is not reporting any suicidal or homicidal ideation, intention, and/or plan. He denies any auditory or visual hallucinations. He reports no paranoia or delusions. He reports that he is sleeping and eating well. He is alert and oriented in all spheres. He expresses a strong desire to receive his belongings from his ex-girlfriend. He has been adherent with his medication and is not reporting any significant side effects. Mental Status Exam: General Appearance: Patient appears to be stated age is alert, directable, and cooperative. Unkempt hair. Long hair. Behavior: Patient is calmly seated without any agitated behavior. Speech: Patient's speech is fluent and nonpressured. Mood/Affect: Mood is improving mildly, affect is congruent and euthymic. Suicidality/Homicidality: Patient denies any suicidal or homicidal ideation Perceptions: Patient denies any visual hallucinations and denies any auditory hallucinations Though content/process: There is no evidence of any delusional thought content and thought process is linear and goal-directed. Memory and concentration: AOX3, grossly intact for the purposes of this session Judgment and insight: Improving mildly Vital Signs Temp 98.1 F 06/02/23 06:43 Pulse 95 06/02/23 08:41 Resp 16 06/02/23 06:43 BP 121/87 06/02/23 08:41 Pulse Ox 96 06/01/23 20:13 FiO2 Intake & Output 06/01/23 06/02/23 06/02/23 18:59 06:59 18:59 Weight 63.3 kg Laboratory Results - Last 24 Hours 06/01/23 06/01/23 06/01/23 11:16 11:16 11:16 WBC 7.5 RBC 4.15 L Hgb 12.7 L Hct 38.8 L MCV 93.6 MCH 30.5 MCHC 32.6 RDW 13.1 Plt Count 266 MPV 8.3 Neutrophils % 69 Lymphocytes % 22 Monocytes % 5 Eosinophils % 2 Basophils % 0 Neutrophils # 5.1 Lymphocytes # 1.7 Monocytes # 0.4 Eosinophils # 0.1 Basophils # 0.0 Sodium 136 L Potassium 4.8 Chloride 105 Carbon Dioxide 26 Anion Gap 5 BUN 17 Creatinine 0.92 Est GFR (CKD-EPI)AfAm >90 Est GFR (CKD-EPI)NonAf >[address] Glu mg/dL 108 Hemoglobin A1c 5.4 Calcium 9.6 Total Bilirubin 0.6 Conjugated Bilirubin 0.0 Unconjugated Bilirubin 0.3 Delta Bilirubin 0.3 H AST 33 ALT 23 Alkaline Phosphatase 64 Total Protein 6.6 Albumin 3.9 Triglycerides 115.00 Cholesterol 137.00 LDL Cholesterol, Calc 63.4 VLDL Cholesterol, Calc 23.00 HDL Cholesterol 50.60 Cholesterol/HDL Ratio 2.71 TSH 1.480 Assessment Bipolar 2 disorder, hypomanic episode Opiate dependence Plan: -Patient continues to meet criteria for inpatient psychiatric admission for symptom stabilization and safety. Patient has signed adult voluntary form and medication consent and was placed in patient's chart. -Medications: Seroquel 75 mg in the morning and 300 mg at bedtime for mood stabilization Prozac 40 mg by mouth daily for depression -When necessary Vistaril and haldol for agitation/aggression. -NRT - nicotine patch -SW on board for discharge planning. Encouraged the patient to participate in milieu.
[2023-06-02] MEDS: hydrOXYzine pamoate 25 MG CAP PO PRN ×2 (11:40→20:56)
[2023-06-02] MEDS: TAMSULOSIN 0.4 MG CAP.ER.24H PO SCH (18:21)
[2023-06-02] MEDS: ATORVASTATIN 40 MG TAB PO SCH (20:50)
[2023-06-02] MEDS: QUEtiapine 100 MG TAB PO SCH (20:51)
[2023-06-03 06:58] VITALS: BP 149/87; PULSE 80; TEMP 97.1
[2023-06-03] MEDS: BACITRACIN/POLYMYX 500-10,000 UNIT/GM OINT 14 GM TUBE TOPICAL SCH (07:21)
[2023-06-03] MEDS: FOLIC ACID 1 MG TAB PO SCH (08:37)
[2023-06-03] MEDS: PANTOPRAZOLE 40 MG TABLET PO SCH (08:37)
[2023-06-03] MEDS: GABAPENTIN 300 MG CAP PO SCH (08:37)
[2023-06-03] MEDS: FLUoxetine HCL 20 MG CAP PO SCH (08:37)
[2023-06-03] MEDS: LOSARTAN 50 MG TAB PO SCH (08:38)
[2023-06-03] MEDS: carvediloL 6.25 MG TAB PO SCH (08:38)
[2023-06-03] MEDS: MELOXICAM 7.5 MG TAB PO SCH (08:38)
[2023-06-03] MEDS: amLODIPine 10 MG TAB PO SCH (08:38)
[2023-06-03] MEDS: DOCUSATE 100 MG CAP PO SCH (08:39)
[2023-06-03] MEDS: HYDROcodone/APAP 7.5-325MG 1 EACH TAB PO PRN (08:42)
[2023-06-03] MEDS: SUCRALFATE 1 GM TAB PO SCH (08:43)
[2023-06-03] MEDS: hydrOXYzine pamoate 25 MG CAP PO PRN (08:43)
[2023-06-03] MEDS: CYCLOBENZAPRINE 10 MG TAB PO PRN (08:44)
[2023-06-03] MEDS: QUEtiapine 25 MG TAB PO SCH (08:44)
[2023-06-03] MEDS: SYMBICORT 160-4.5 MCG INHALER INHALATION SCH (08:50)
[2023-06-03] MEDS: NICOTINE 14MG/24HR PATCH TRANSDERM SCH (09:11)
--- NOTE | 2023-06-03 11:21 | P.DS ---
Providers Date of admission: 05/31/23 19:51 Expected date of discharge: 06/03/23 Attending physician: Agapito Corey MD Consults: 06/01/23 08:50 Consult Physician Routine Consulting Provider: Leida Tipton Consult Reason/Comments: history and physical/medical management Do you want consulting provider notified?: Yes Primary care physician: Rishabh Mcdowell MD - Discharge Diagnosis(es) (1) Bipolar affective, mixed, severe Current Visit: Yes Status: Acute Priority: High (2) Opiate dependence Current Visit: Yes Status: Chronic Priority: Medium Hospital Course: Admission HPI: Patient is a single, unemployed 47 year old [place] male with a significant history of Bipolar disorder who presents to our hospital on 05/31/2023 for homicidal ideation Patient presented to the hospital on 05/31/2023 under petition accompanied by [place] [employer] for verbalizing homicidal threats. As per petition, "Lukas stated he was homicidal to all the people who have done him wrong." He was also noted to be very tangential, grandiose, and pressured in the ED. He was subsequently admitted onto the psychiatric unit. Upon evaluation on the psychiatric unit, the patient reports that he has been awake for the last 3-5 days. He reports that he has these episodes where he is unable to sleep and has high energy. He also reports that he does act out of character during these episodes. He does report increased impulsivity, increased goal-directed activity, and grandiosity. Currently, the patient states that he was brought to the hospital because he was agitated and police became involved. He reports that he has an ex-girlfriend who is currently holding some of his belongings. He wishes to have his belongings return to him. He is vehemently denying any suicidal or homicidal ideation, intention, and/or plan. He is not reporting any auditory or visual hallucinations. He is not reporting any paranoia or other delusions. The patient reports that he has been open with [facility] however has been nonadherent with any outpatient treatment. He is fixated on his medication management, in particular the use of narcotics and benzodiazepines. He is agreeable to voluntary admission onto the psychiatric unit for further stabilization. Patient has been intrusive diagnosis of bipolar disorder. Patient has been previously prescribed Haldol, Zyprexa, trazodone, BuSpar, and Celexa. He was last admitted onto our psychiatric unit in April 2020. Patient is nonadherent with outpatient follow up with [facility]. Patient denies any history of suicide attempts in the past. Hospital course: Upon admission to the unit patient was initially presenting as overtly manic, tangential, and grandiose. Patient was however directable and agreeable to comme nce treatment. Patient got along well with other patients on the unit and followed unit protocol. Patient was compliant with the medications and denied any side effects throughout hospital course. Patient was started on Seroquel for management of mood stabilization and psychosis. Prozac was continued in order to address his depression and anxiety. He was also continued on his home medication of gabapentin and Yreka. Patient spoke of his stressors and engaged in therapy both group and individual. Patient was also seen by medical team for history and physical exam. Over the course of the hospitalization, the patient displayed significant improvement in regards to his target symptoms of wanda and psychosis. He became more future and goal oriented and much more linear and logical in conversation. He developed better insight and judgment and was adherent with his medications and reported no significant side effects. He was sleeping and eating well. On the day of discharge, the patient is not reporting any suicidal or homicidal ideation, intention, and/or plan. He is not reporting any access to firearms or other weapons. He reports a strong desire to live for himself and for his family. He reports no auditory or visual hallucinations. He denies any paranoia or other delusions. The patient does have a significant history of substance use and narcotic dependence and was counseled at great length on abstaining from all substances including alcohol, marijuana, tobacco, and all illicit drugs. He reports no medical issues or concerns on the day of discharge and is denying any chest pain, shorts of breath, palpitations, akathisia, or tardive dyskinesia. He was also counseled on the safe prescribing practices regarding his narcotic medications. As the patient no longer met criteria for continued inpatient psychiatric hospitalization, he was subsequently discharged after appropriate safety planning. Mental status exam: General Appearance: Patient appears to be stated age is alert, pleasant, and cooperative. Patient is in no acute distress and has fair hygiene and grooming Behavior: Patient is calmly seated without any agitated behavior. Speech: Patient's speech is fluent and nonpressured. Mood/Affect: Patient reports their mood is "feeling pretty good", affect is congruent and euthymic to bright. Suicidality/Homicidality: Patient denies having any suicidal or homicidal ideation intent or plan. Perceptions: Patient denies any auditory or visual hallucinations. Though content/process: There is no evidence of any delusional thought content and thought process is linear and goal-directed. Patient is future oriented. Memory and concentration: AOX3, grossly intact for the purposes of this session. Can spell "WORLD" backwards correctly. Judgment and insight: Improved with guarded prognosis Impression: Bipolar 2 disorder, mixed episode Opiate dependence Plan: -Continue with discharge today as patient has improved and stabilized psychiatrically and is not currently an imminent threat to himself and/or others. Patient will remain at chronically elevated risk due to his uncertain housing situation and history of severe mental illness. -Continue medications: Seroquel 75 mg in the morning and 300 mg at bedtime for mood stabilization Prozac 40 mg by mouth daily for depression -Patient was counseled on the need for medication compliance and appropriate follow-up at mental health and also primary care for medical issues. Patient verbalized understanding and agreed. -Social work to arrange for and conduct family meeting to ensure safety upon discharge and answer any questions/concerns. Social work also to arrange for patients follow up appointments with [facility] for psychiatric care along with follow up with primary care provider. -Patient counseled on abstaining from recreational drugs and marijuana and alcohol. Was informed/educated on the adverse effects on their physical and mental health. Patient verbally agreed and understood]. -Patient was instructed to return to the hospital or seek immediate medical care if their psychiatric or medical symptoms do worsen or reoccur. -Psychoeducation and supportive therapy provided to patient. Risks and benefits of pharmacological treatment versus the risks and benefits of nontreatment weighed and discussed. Informed consent discussion held. Common side effects of psychotropics discussed such as, but not limited to headache, GI disturbance, sexual dysfunction, movement disorders, sedation, and orthostatic hypotension. Life threatening and blackbox warnings of prescribed medications also discussed. Potential risks of operating a vehicle or heavy machinery discussed with patient at length. Advised on importance of compliance and a reliable and responsible manner. Patient advised to review FDA consumer labeling of all medications prior to taking. Patient verbalized understanding of potential risks, and agrees with current treatment plan. Patient advised to medically contact physician/emergency personnel if any acute changes in condition occur. Vital Signs Temp 97.1 F L 06/03/23 06:32 Pulse 80 06/03/23 06:32 Resp 16 06/03/23 06:32 BP 149/87 06/03/23 06:32 Pulse Ox 96 06/01/23 20:13 FiO2 Laboratory Results WBC 7.5 k/uL (3.8-10.6) 06/01/23 11:16 RBC 4.15 m/uL (4.30-5.90) L 06/01/23 11:16 Hgb 12.7 gm/dL (13.0-17.5) L 06/01/23 11:16 Hct 38.8 % (39.0-53.0) L 06/01/23 11:16 MCV 93.6 fL (80.0-100.0) 06/01/23 11:16 MCH 30.5 pg (25.0-35.0) 06/01/23 11:16 MCHC 32.6 g/dL (31.0-37.0) 06/01/23 11:16 RDW 13.1 % (11.5-15.5) 06/01/23 11:16 Plt Count 266 k/uL (150-450) 06/01/23 11:16 MPV 8.3 06/01/23 11:16 Neutrophils % 69 % 06/01/23 11:16 Lymphocytes % 22 % 06/01/23 11:16 Monocytes % 5 % 06/01/23 11:16 Eosinophils % 2 % 06/01/23 11:16 Basophils % 0 % 06/01/23 11:16 Neutrophils # 5.1 k/uL (1.3-7.7) 06/01/23 11:16 Lymphocytes # 1.7 k/uL (1.0-4.8) 06/01/23 11:16 Monocytes # 0.4 k/uL (0-1.0) 06/01/23 11:16 Eosinophils # 0.1 k/uL (0-0.7) 06/01/23 11:16 Basophils # 0.0 k/uL (0-0.2) 06/01/23 11:16 Sodium 136 mmol/L (137-145) L 06/01/23 11:16 Potassium 4.8 mmol/L (3.5-5.1) 06/01/23 11:16 Chloride 105 mmol/L (98-107) 06/01/23 11:16 Carbon Dioxide 26 mmol/L (22-30) 06/01/23 11:16 Anion Gap 5 mmol/L 06/01/23 11:16 BUN 17 mg/dL (9-20) 06/01/23 11:16 Creatinine 0.92 mg/dL (0.66-1.25) 06/01/23 11:16 Est GFR (CKD-EPI)AfAm >90 (>60 ml/min/1.73 sqM) 06/01/23 11:16 Est GFR (CKD-EPI)NonAf >90 (>60 ml/min/1.73 sqM) 06/01/23 11:16 Glucose 95 mg/dL (74-99) 06/01/23 11:[address] Glu mg/dL 108 mg/dL 06/01/23 11:16 Hemoglobin A1c 5.4 % (<=6.0) 06/01/23 11:16 Calcium 9.6 mg/dL (8.4-10.2) 06/01/23 11:16 Total Bilirubin 0.6 mg/dL (0.2-1.3) 06/01/23 11:16 Conjugated Bilirubin 0.0 mg/dL (0.0-0.3) 06/01/23 11:16 Unconjugated Bilirubin 0.3 mg/dL (0.0-1.1) 06/01/23 11:16 Delta Bilirubin 0.3 mg/dL (0.0-0.2) H 06/01/23 11:16 AST 33 U/L (17-59) 06/01/23 11:16 ALT 23 U/L (4-49) 06/01/23 11:16 Alkaline Phosphatase 64 U/L (38-126) 06/01/23 11:16 Total Protein 6.6 g/dL (6.3-8.2) 06/01/23 11:16 Albumin 3.9 g/dL (3.5-5.0) 06/01/23 11:16 Triglycerides 115.00 mg/dL (0.00-149.00) 06/01/23 11:16 Cholesterol 137.00 mg/dL (0.00-200.00) 06/01/23 11:16 LDL Cholesterol, Calc 63.4 mg/dL (0.0-131.0) 06/01/23 11:16 VLDL Cholesterol, Calc 23.00 mg/dL (5.00-40.00) 06/01/23 11:16 HDL Cholesterol 50.60 mg/dL (40.00-60.00) 06/01/23 11:16 Cholesterol/HDL Ratio 2.71 Ratio 06/01/23 11:16 TSH 1.480 mIU/L (0.465-4.680) 06/01/23 11:16 Urine Color Yellow 05/31/23 08:39 Urine Appearance Clear (Clear) 05/31/23 08:39 Urine pH 6.0 (5.0-8.0) 05/31/23 08:39 Ur Specific [place] 1.024 (1.001-1.035) 05/31/23 08:39 Urine Protein 1+ (Negative) H 05/31/23 08:39 Urine Glucose (UA) Negative (Negative) 05/31/23 08:39 Urine Ketones 1+ (Negative) H 05/31/23 08:39 Urine Blood Negative (Negative) 05/31/23 08:39 Urine Nitrite Negative (Negative) 05/31/23 08:39 Urine Bilirubin Negative (Negative) 05/31/23 08:39 Urine Urobilinogen 2.0 mg/dL (<2.0) 05/31/23 08:39 Ur Leukocyte Esterase Negative (Negative) 05/31/23 08:39 Urine RBC 1 /hpf (0-5) 05/31/23 08:39 Urine WBC 2 /hpf (0-5) 05/31/23 08:39 Ur Squamous Epith Cells 1 /hpf (0-4) 05/31/23 08:39 Hyaline Casts 39 /lpf (0-2) H 05/31/23 08:39 Urine Mucus Rare /hpf (None) H 05/31/23 08:39 Urine Opiates Screen Detected (NotDetected) H 05/31/23 08:39 Ur Oxycodone Screen Not Detected (NotDetected) 05/31/23 08:39 Urine Methadone Screen Not Detected (NotDetected) 05/31/23 08:39 Ur Propoxyphene Screen Not Detected (NotDetected) 05/31/23 08:39 Ur Barbiturates Screen Not Detected (NotDetected) 05/31/23 08:39 U Tricyclic Antidepress Not Detected (NotDetected) 05/31/23 08:39 Ur Phencyclidine Scrn Not Detected (NotDetected) 05/31/23 08:39 Ur Amphetamines Screen Not Detected (NotDetected) 05/31/23 08:39 U Methamphetamines Scrn Not Detected (NotDetected) 05/31/23 08:39 U Benzodiazepines Scrn Detected (NotDetected) H 05/31/23 08:39 Urine Cocaine Screen Not Detected (NotDetected) 05/31/23 08:39 U Marijuana (THC) Screen Detected (NotDetected) H 05/31/23 08:39 Influenza Type A (PCR) Not Detected (Not Detectd) 05/31/23 15:18 Influenza Type B (PCR) Not Detected (Not Detectd) 05/31/23 15:18 RSV (PCR) Not Detected (Not Detectd) 05/31/23 15:18 SARS-CoV-2 (PCR) Not Detected (Not Detectd) 05/31/23 15:18 Allergies Allergy/AdvReac Type Severity Reaction Status Date / Time tramadol Allergy Severe Itching Verified 05/31/23 08:29 morphine Allergy Unknown Verified 05/31/23 21:27 hydromorphone [From Dilaudid] AdvReac Confusion Verified 05/31/23 08:29 Patient Condition at Discharge: Stable Plan - Discharge Summary Discharge Rx Participant: No New Discharge Prescriptions: New QUEtiapine [SEROquel] 75 mg PO DAILY 30 Days #90 tab FLUoxetine HCL [PROzac] 40 mg PO DAILY 30 Days #60 cap QUEtiapine [SEROquel] 300 mg PO HS 30 Days #90 tab Continue Sucralfate [Carafate] 1 gm PO Q12H Omeprazole 40 mg PO DAILY carvediloL [Coreg] 6.25 mg PO BID-W/MEALS Albuterol Inhaler [Ventolin Hfa Inhaler] 2 puff INHALATION RT-Q4H PRN PRN Reason: Coigh & Wheezing Acetaminophen Tab [Tylenol] 500 mg PO BID PRN PRN Reason: Pain Atorvastatin [Lipitor] 40 mg PO HS Nicotine 14Mg/24Hr Patch [Habitrol] 1 patch TRANSDERM DAILY Docusate [Colace] 100 mg PO BID amLODIPine [Norvasc] 10 mg PO DAILY Tamsulosin [Flomax] 0.8 mg PO HS HYDROcodone/APAP 7.5-325MG [Yreka 7.5-325] 1 tab PO BID PRN PRN Reason: Pain Gabapentin 600 mg PO TID Folic Acid 1 mg PO DAILY Celecoxib [CeleBREX] 100 mg PO BID Losartan Potassium [Cozaar] 100 mg PO DAILY Fluticasone Propion/Salmeterol [Advair Hfa 115-21 Mcg Inhaler] 2 puff INHALATION RT-BID Cyclobenzaprine [Flexeril] 10 mg PO BID PRN PRN Reason: Muscle Spasm Nitroglycerin Sl Tabs [Nitrostat] 0.4 mg SL Q5M PRN PRN Reason: Chest Pain Discontinued busPIRone HCL 15 mg PO TID FLUoxetine HCL [PROzac] 20 mg PO DAILY hydrOXYzine HCL [Atarax] 50 mg PO DAILY PRN PRN Reason: Severe Anxiety traZODone HCL [Desyrel] 100 mg PO HS Discharge Medication List Acetaminophen Tab [Tylenol] 500 mg PO BID PRN 12/10/22 [History] Albuterol Inhaler [Ventolin Hfa Inhaler] 2 puff INHALATION RT-Q4H PRN 12/10/22 [History] Celecoxib [CeleBREX] 100 mg PO BID 12/10/22 [History] Folic Acid 1 mg PO DAILY 12/10/22 [History] Gabapentin 600 mg PO TID 12/10/22 [History] HYDROcodone/APAP 7.5-325MG [Yreka 7.5-325] 1 tab PO BID PRN 12/10/22 [History] Omeprazole 40 mg PO DAILY 12/10/22 [History] Sucralfate [Carafate] 1 gm PO Q12H 12/10/22 [History] Tamsulosin [Flomax] 0.8 mg PO HS 12/10/22 [History] carvediloL [Coreg] 6.25 mg PO BID-W/MEALS 12/10/22 [History] Atorvastatin [Lipitor] 40 mg PO HS 02/03/23 [History] Losartan Potassium [Cozaar] 100 mg PO DAILY 02/03/23 [History] Cyclobenzaprine [Flexeril] 10 mg PO BID PRN 04/20/23 [History] Docusate [Colace] 100 mg PO BID 04/20/23 [History] Fluticasone Propion/Salmeterol [Advair Hfa 115-21 Mcg Inhaler] 2 puff INHALATION RT-BID 04/20/23 [History] Nicotine 14Mg/24Hr Patch [Habitrol] 1 patch TRANSDERM DAILY 04/20/23 [History] Nitroglycerin Sl Tabs [Nitrostat] 0.4 mg SL Q5M PRN 04/20/23 [History] amLODIPine [Norvasc] 10 mg PO DAILY 04/20/23 [History] FLUoxetine HCL [PROzac] 40 mg PO DAILY 30 Days #60 cap 06/03/23 [Rx] QUEtiapine [SEROquel] 75 mg PO DAILY 30 Days #90 tab 06/03/23 [Rx] QUEtiapine [SEROquel] 300 mg PO HS 30 Days #90 tab 06/03/23 [Rx] Follow up Appointment(s)/Referral(s): Rishabh Mcdowell MD [Primary Care Provider] - 1-2 days Patient Instructions/Handouts: How to Stop Smoking (DC), Bipolar Disorder (DC), Depression (DC) Activity/Diet/Wound Care/Special Instructions: Avoid the use of street drugs and alcohol. Take all medications as prescribed. When you are in need of refills on your medications, please contact your medical provider and/or outpatient psychiatrist/provider to have this done. Please go to your scheduled outpatient appointment for aftercare treatment. If symptoms return or become worse, call the crisis line at and/or go to the nearest emergency room for evaluation. National Suicide Hotline 646.
== END 2023-06-03 12:09 | disposition home or self-care (01) | DRG 885 ==
LOC: EC 08:18 → 3MHU 19:51
PROVIDERS: ADMIT Psychiatry & Neurology Psychiatry; ATTEND Psychiatry & Neurology Psychiatry
DX: F31.64 Bipolar disorder, current episode mixed, severe, with psychotic features (principal); R45.850 Homicidal ideations; F11.20 Opioid dependence, uncomplicated; Z20.822 Contact with and (suspected) exposure to COVID-19; E78.5 Hyperlipidemia, unspecified; I25.10 Atherosclerotic heart disease of native coronary artery without angina pectoris; I25.2 Old myocardial infarction; I10 Essential (primary) hypertension; F17.210 Nicotine dependence, cigarettes, uncomplicated; Z71.6 Tobacco abuse counseling; Z79.1 Long term (current) use of non-steroidal anti-inflammatories (NSAID); Z79.51 Long term (current) use of inhaled steroids; Z79.899 Other long term (current) drug therapy; F41.0 Panic disorder [episodic paroxysmal anxiety]
CPT/HCPCS: 80053; 80061; 80306; 81001; 82075; 82248; 83036; 84443; 85025; 87636; 99285

== ENCOUNTER 2023-06-09 15:48 | Emergency (ER) | payer MEDICARE, OTHER ==
[2023-06-09] MEDS ORDERED: FLUoxetine HCL 20 MG CAP PO STA (18:18)
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
[2023-06-09 18:54] VITALS: BP 110/74; PULSE 68; RESP 16; TEMP 98.9
== END 2023-06-09 19:31 | disposition home or self-care (01) ==
LOC: EC 15:48
DX: F39 Unspecified mood [affective] disorder (principal); I25.10 Atherosclerotic heart disease of native coronary artery without angina pectoris; E78.5 Hyperlipidemia, unspecified; I10 Essential (primary) hypertension; I25.2 Old myocardial infarction; F41.9 Anxiety disorder, unspecified; F31.9 Bipolar disorder, unspecified; F17.200 Nicotine dependence, unspecified, uncomplicated; F12.90 Cannabis use, unspecified, uncomplicated; Z79.899 Other long term (current) drug therapy; Z88.5 Allergy status to narcotic agent; Z88.6 Allergy status to analgesic agent; Z88.8 Allergy status to other drugs, medicaments and biological substances; Z90.49 Acquired absence of other specified parts of digestive tract
CPT/HCPCS: 82075; 99284

== ENCOUNTER 2023-06-13 00:43 | Inpatient (IN) | payer MEDICARE, MEDICAID ==
--- NOTE | 2023-06-13 01:57 | ED ---
Psych HPI - General Chief Complaint: Psychiatric Symptoms Stated Complaint: Mental Health Time Seen by Provider: 06/13/23 00:45 Source: patient, RN notes reviewed, old records reviewed Mode of arrival: EMS Limitations: no limitations - History of Present Illness Initial Comments: This is a 47-year-old male DF for evaluation today. Patient Dese for evaluation regards to psychiatric illness with known history of psychosis and psychiatric disease. Patient isn't allegedly making threats of homicidal ideation MD Complaint: suicidal ideation (Homicidal thoughts), altered mental status -: unknown Associated Psychiatric Symptoms: homicidal ideation, racing thoughts Quality: constant Improves With: none Worsens With: none Context: recent drug abuse, significant life stressor Treatments Prior to Arrival: placed on mental health hold - Related Data Home Medications Medication Instructions Recorded Confirmed Albuterol Inhaler [Ventolin Hfa 2 puff INHALATION RT-Q4H PRN 12/10/22 06/13/23 Inhaler] Celecoxib [CeleBREX] 100 mg PO BID 12/10/22 06/13/23 Folic Acid 1 mg PO DAILY 12/10/22 06/13/23 Gabapentin 600 mg PO TID 12/10/22 06/13/23 HYDROcodone/APAP 7.5-325MG [[place] 1 tab PO BID PRN 12/10/22 06/13/23 7.5-325] Sucralfate [Carafate] 1 gm PO Q12H 12/10/22 06/13/23 Tamsulosin [Flomax] 0.8 mg PO HS 12/10/22 06/13/23 carvediloL [Coreg] 6.25 mg PO BID-W/MEALS 12/10/22 06/13/23 Atorvastatin [Lipitor] 40 mg PO HS 02/03/23 06/13/23 Losartan Potassium [Cozaar] 100 mg PO DAILY 02/03/23 06/13/23 Cyclobenzaprine [Flexeril] 10 mg PO BID PRN 04/20/23 06/13/23 Nitroglycerin Sl Tabs [Nitrostat] 0.4 mg SL Q5M PRN 04/20/23 06/13/23 amLODIPine [Norvasc] 10 mg PO DAILY 04/20/23 06/13/23 Previous Rx's Medication Instructions Recorded Acetaminophen Tab [Tylenol] 500 mg PO BID PRN tab 06/18/23 DULoxetine HCL [Cymbalta] 60 mg PO DAILY 14 Days #14 cap 06/18/23 Docusate [Colace] 100 mg PO BID 15 Days #30 cap 06/18/23 Doxepin [SINEquan] 10 mg PO HS 14 Days #14 cap 06/18/23 Fluticasone Propion/Salmeterol 2 puff INHALATION RT-BID 1 Days #1 06/18/23 [Advair Hfa 115-21 Mcg Inhaler] each Ibuprofen [Motrin] 600 mg PO BID PRN tab 06/18/23 Nicotine 14Mg/24Hr Patch [Habitrol] 1 patch TRANSDERM DAILY 14 Days 06/18/23 #14 patch Omeprazole 40 mg PO DAILY 14 Days #14 cap 06/18/23 Paliperidone IM [Invega Sustenna] 156 mg IM ONCE #1 ml 06/18/23 Paliperidone Palmitate [Invega 117 mg IM QMONTHLY #1 each 06/18/23 Sustenna] hydrOXYzine pamoate [Vistaril] 25 mg PO DAILY PRN 14 Days #14 06/18/23 capsule Allergies Allergy/AdvReac Type Severity Reaction Status Date / Time tramadol Allergy Severe Itching Verified 06/13/23 11:48 morphine Allergy Unknown Verified 06/13/23 11:48 hydromorphone [From Dilaudid] AdvReac Confusion Verified 06/13/23 11:48 Review of Systems ROS Statement: Those systems with pertinent positive or pertinent negative responses have been documented in the HPI. ROS Other: All systems not noted in ROS Statement are negative. Past Medical History Past Medical History: Coronary Artery Disease (CAD), Hyperlipidemia, Hypertension, Myocardial Infarction ([place]) Additional Past Medical History / Comment(s): Recent bronchitis, states he had a withdrawl seizure Last Myocardial Infarction Date:: 2020 History of Any Multi-Drug Resistant Organisms: None Reported Past Surgical History: Cholecystectomy, Heart Catheterization Past Anesthesia/Blood Transfusion Reactions: No Reported Reaction Additional Past Anesthesia/Blood Transfusion Reaction / Comment(s): Pt has never had surgery. Past Psychological History: Anxiety, Bipolar, Depression, Panic Disorder Smoking Status: Current every day smoker Past Alcohol Use History: Daily, Heavy Past Drug Use History: Marijuana - Past Family History Father Family Medical History: Myocardial Infarction ([place]) Additional Family Medical History / Comment(s): Father of a [place] at the age of 41 yrs. Mother Family Medical History: Diabetes Mellitus General Exam Limitations: no limitations General appearance: alert, in no apparent distress Head exam: Present: atraumatic, normocephalic, normal inspection Eye exam: Present: normal appearance, PERRL, EOMI. Absent: scleral icterus, conjunctival injection, periorbital swelling ENT exam: Present: normal exam, mucous membranes moist Neck exam: Present: normal inspection. Absent: tenderness, meningismus, lymphadenopathy Respiratory exam: Present: normal lung sounds bilaterally. Absent: respiratory distress, wheezes, rales, rhonchi, stridor Cardiovascular Exam: Present: regular rate, normal rhythm, normal heart sounds. Absent: systolic murmur, diastolic murmur, rubs, gallop, clicks GI/Abdominal exam: Present: soft, normal bowel sounds. Absent: distended, tenderness, guarding, rebound, rigid Extremities exam: Present: normal inspection, full ROM, normal capillary refill. Absent: tenderness, pedal edema, joint swelling, calf tenderness Back exam: Present: normal inspection Neurological exam: Present: alert, oriented X3, CN II-XII intact Psychiatric exam: Present: normal affect, normal mood Skin exam: Present: warm, dry, intact, normal color. Absent: rash Course Vital Signs 06/13/23 06/13/23 06/13/23 01:03 05:00 11:58 Temperature 98.0 F Pulse Rate 100 84 Respiratory 20 17 18 Rate Blood Pressure 163/90 130/80 O2 Sat by Pulse 94 L 97 Oximetry - Reevaluation(s) Reevaluation #1: 06/13/23 02:16 Medical record is reviewed Reevaluation #2: Medical clear for psychiatric evaluation Medical Decision Making - Medical Decision Making 47 male be admitted for psychiatric evaluation and treatment seen and evaluated by psychiatry here in the emergency department - Lab Data Result diagrams: 06/14/23 12:10 06/14/23 12:10 Lab Results 06/13/23 Range/Units 10:57 Coronavirus (PCR) Not Detected (Not Detectd) Disposition Clinical Impression: Acute anxiety, Psychosis, Adjustment reaction of adult life, Altered mental status, Suicidal ideation, Bipolar disorder current episode depressed Disposition: TRANSFER TO PSYCH HOSP/UNIT Condition: Fair Is patient prescribed a controlled substance at d/c from ED?: No
[2023-06-13] MEDS ORDERED: LORazepam 2 MG/ML INJ IM STA (07:40)
[2023-06-13] MEDS ORDERED: LORazepam 2 MG/ML INJ IV STA (10:03)
[2023-06-13] MEDS ORDERED: MAGNESIUM HYDROXIDE 2,400 MG/30 ML CUP PO PRN (11:36)
[2023-06-13] MEDS ORDERED: IBUPROFEN 600 MG TAB PO PRN ×2 (11:36→12:13)
[2023-06-13] MEDS ORDERED: MAG HYDROX/AL HYDROX/SIMETH 30 ML CUP PO PRN (11:36)
[2023-06-13] MEDS ORDERED: LORazepam 2 MG/ML INJ IM PRN (11:36)
[2023-06-13] MEDS ORDERED: ACETAMINOPHEN TAB 325 MG TAB PO PRN (11:36)
[2023-06-13] MEDS ORDERED: OLANZapine 10 MG VIAL IM PRN (11:36)
[2023-06-13] MEDS ORDERED: haloperidoL 5 MG TAB PO PRN (11:36)
[2023-06-13] MEDS ORDERED: hydrOXYzine pamoate 25 MG CAP PO PRN (11:43)
[2023-06-13] MEDS ORDERED: ACETAMINOPHEN TAB 500 MG TAB PO PRN (11:43)
[2023-06-13] MEDS ORDERED: NITROGLYCERIN SL TABS 0.4 MG TAB SUBLINGUAL PRN (11:43)
[2023-06-13] MEDS ORDERED: ALBUTEROL INHALER 60 PUFF/8 GM INHALER (MHU) INHALATION PRN (11:43)
[2023-06-13] MEDS ORDERED: NICOTINE 21MG/24HR PATCH TRANSDERM SCH (11:45)
[2023-06-13] MEDS: amLODIPine 10 MG TAB PO SCH (13:51)
[2023-06-13] MEDS: SUCRALFATE 1 GM TAB PO SCH ×2 (13:51→19:39)
[2023-06-13] MEDS: PANTOPRAZOLE 40 MG TABLET PO SCH (13:51)
[2023-06-13] MEDS: LOSARTAN 50 MG TAB PO SCH (13:52)
[2023-06-13] MEDS: FLUoxetine HCL 20 MG CAP PO SCH (13:52)
[2023-06-13] MEDS: MELOXICAM 7.5 MG TAB PO SCH (13:52)
[2023-06-13] MEDS: DOCUSATE 100 MG CAP PO SCH ×2 (13:52→19:39)
[2023-06-13] MEDS: GABAPENTIN 300 MG CAP PO SCH ×3 (13:54→19:39)
[2023-06-13] MEDS: FOLIC ACID 1 MG TAB PO SCH (13:54)
[2023-06-13] MEDS: NICOTINE 14MG/24HR PATCH TRANSDERM SCH (13:54)
[2023-06-13] MEDS: QUEtiapine 25 MG TAB PO SCH (13:56)
[2023-06-13] MEDS: HYDROcodone/APAP 7.5-325MG 1 EACH TAB PO PRN ×2 (13:58→20:52)
[2023-06-13] MEDS: carvediloL 6.25 MG TAB PO SCH ×2 (14:00→16:21)
--- NOTE | 2023-06-13 16:23 | P.PN ---
Progress Note - Text Progress Note Date: 06/13/23 Discussed with nursing and patient is currently not appropriate for medical evaluation. He was agitated in the R and barger been medicated and is resting. They ask not to arouse the patient.
[2023-06-13] MEDS: ATORVASTATIN 40 MG TAB PO SCH (19:39)
[2023-06-13] MEDS: SYMBICORT 160-4.5 MCG INHALER (MHU) INHALATION SCH (19:40)
[2023-06-13] MEDS: TAMSULOSIN 0.4 MG CAP.ER.24H PO SCH (19:40)
[2023-06-13] MEDS: CYCLOBENZAPRINE 10 MG TAB PO PRN (20:52)
[2023-06-13] MEDS ORDERED: QUEtiapine 100 MG TAB PO SCH (21:00)
[2023-06-14] MEDS: DOCUSATE 100 MG CAP PO SCH ×2 (08:30→20:00)
[2023-06-14] MEDS: QUEtiapine 25 MG TAB PO SCH (08:30)
[2023-06-14] MEDS: amLODIPine 10 MG TAB PO SCH (08:30)
[2023-06-14] MEDS: GABAPENTIN 300 MG CAP PO SCH ×3 (08:30→20:00)
[2023-06-14] MEDS: SUCRALFATE 1 GM TAB PO SCH ×2 (08:30→19:59)
[2023-06-14] MEDS: FLUoxetine HCL 20 MG CAP PO SCH (08:30)
[2023-06-14] MEDS: LOSARTAN 50 MG TAB PO SCH (08:31)
[2023-06-14] MEDS: HYDROcodone/APAP 7.5-325MG 1 EACH TAB PO PRN ×2 (08:31→20:03)
[2023-06-14] MEDS: FOLIC ACID 1 MG TAB PO SCH (08:31)
[2023-06-14] MEDS: PANTOPRAZOLE 40 MG TABLET PO SCH (08:31)
[2023-06-14] MEDS: carvediloL 6.25 MG TAB PO SCH ×2 (08:31→17:24)
[2023-06-14] MEDS: SYMBICORT 160-4.5 MCG INHALER (MHU) INHALATION SCH ×2 (08:31→20:00)
[2023-06-14] MEDS: MELOXICAM 7.5 MG TAB PO SCH (08:40)
[2023-06-14] MEDS: NICOTINE 14MG/24HR PATCH TRANSDERM SCH (08:54)
--- NOTE | 2023-06-14 11:19 | P.HP ---
Psychiatric H&P - . H&P Date: 06/14/23 History & Physical: Allergies Allergy/AdvReac Type Severity Reaction Status Date / Time tramadol Allergy Severe Itching Verified 06/13/23 11:48 morphine Allergy Unknown Verified 06/13/23 11:48 hydromorphone [From Dilaudid] AdvReac Confusion Verified 06/13/23 11:48 Vital Signs Temp 98.1 F 06/14/23 05:29 Pulse 92 06/14/23 05:29 Resp 18 06/14/23 05:29 BP 103/74 06/14/23 05:29 Pulse Ox 98 06/14/23 05:29 FiO2 Laboratory Last Values Coronavirus (PCR) Not Detected (Not Detectd) 06/13/23 10:57 06/14/23 10:54 IDENTIFYING DATA: Patient is a single, unemployed 47 year old [place] male with a significant history of Bipolar disorder, currently homeless HPI: Patient presented to the hospital yesterday with altered mental status, making homicidal threats and suicidal ideations. Patient was petition and certificate was completed in the ER. Patient was just discharged from the mental health unit on 06/03 with a diagnosis of bipolar disorder and opiate dependence. Patient was agreeable to seen today by hand sign writer. Patient appeared to have poor hygiene and grooming, along pathak and long hair. He appeared to have very poor insight into his condition and need for treatment. He claims that he was down to his brother's house and claims that he didn't get along with his son and he told him to leave. He states that he left without his phone working in claims that he needed a ride. He claims that the elevated work platform operator came to pick him up as he was "just laying there". He states that he became pissed off and the elevated work platform operator brought him into the hospital. He was fairly concrete, illogical at times and argumentative. Very low frustration tolerance. He claims that he has mood swings and "gets mad easily". Claims that he has depression and anxiety as well. States that he is having homicidal thoughts however did not intend or mention a specific target. Denies any homicidal ideations. He is not reporting any auditory or visual hallucinations. The patient reports that he has been open with [facility] however has been nonadherent with any outpatient treatment. PAST PSYCHIATRIC HISTORY: Patient has been intrusive diagnosis of bipolar disorder. Patient has been previously prescribed Haldol, Zyprexa, trazodone, BuSpar, and Celexa and Seroquel. He was last admitted onto our psychiatric unit in late May 2023. Patient is nonadherent with outpatient follow up with [facility]. Patient denies any history of suicide attempts in the past. PMH: Past Medical History: Coronary Artery Disease (CAD), Hyperlipidemia, Hypertension, Myocardial Infarction ([place]) Additional Past Medical History / Comment(s): Recent bronchitis, states he had a withdrawl seizure Last Myocardial Infarction Date:: 2020 History of Any Multi-Drug Resistant Organisms: None Reported Past Surgical History: Cholecystectomy, Heart Catheterization Past Anesthesia/Blood Transfusion Reactions: No Reported Reaction Additional Past Anesthesia/Blood Transfusion Reaction / Comment(s): Pt has never had surgery. Past Psychological History: Anxiety, Bipolar, Depression, Panic Disorder ALLERGIES: Tramadol, morphine, hydromorphone CHEMICAL DEPENDENCY HISTORY: Smoking Status: Current every day smoker Past Alcohol Use History: Daily, Heavy Past Drug Use History: Marijuana FAMILY PSYCHIATRIC/SUBSTANCE USE HISTORY: The patient reports that he had a nephew commit suicide recently. He also reports family history of bipolar disorder. SOCIAL HISTORY: Patient is currently homeless however states that he has a few places where he can go upon discharge. He reports that his ex-girlfriend currently has some of his belongings. He reports that his 2 older children however he is not sure where they are as he has no custody over them. MENTAL STATUS EXAM: General Appearance: Patient appears to be short in stature, unkempt pathak and hair. stated age is alert, argumentative at times. Superficial. Patient appears to have slightly disheveled hygiene and grooming. Behavior: Patient displays elevated psychomotor activity. Argumentative. Irritable. Speech: Patient's speech is nonlinear, at times difficult to follow, and rapid. Interruptible, nonpressured, and spontaneous. Mood/Affect: Patient reports their mood is "the same" Affect is slightly expansive Suicidality/Homicidality: Patient is vehemently denying any suicidal intention, and/or plan. Patient omits a homicidal ideations, no target. Perceptions: Patient denies any visual hallucinations and denies any auditory hallucinations Though content/process: Patient presents with a flight of ideas. Medication seeking. Rationalizing, poor insight. Memory and concentration: AOX3, grossly intact for the purposes of this session. Can spell "WORLD" backwards Judgment and insight: Poor STRENGTHS/WEAKNESSES: Strength is that the patient is resilient and resourceful. Weakness is that the patient has very poor insight, impulsive. INTELLECT: average IMPRESSIONS: Bipolar disorder, mixed episode Cannabis use disorder Nicotine dependence PLAN: -Patient is admitted under involuntary but converted to involuntary status to MHU for stabilization of psychiatric symptoms and safety. Patient not signed adult voluntary form and medication consent and is placed in patient's chart. -Medications : Discontinue Seroquel and will replace with paliperidone 3 mg by mouth twice a day for mood stabilization/psychosis. Discontinue Prozac. Start Cymbalta 30 mg daily for mood/anxiety. Continue home medication of [place] -Vistaril and Zyprexa PRN for agitation/aggression -Patient was counselled on substance abuse and desired to cut back on use -Patient was informed of the risks, benefits and side effects of the medication -Internal Medicine consult to perform medical evaluation and physical. -NRT - nicotine patch - on board for discharge planning. Encourage patient to participate in groups to work on coping skills. Will await deferral and court hearing date. 06/14/23 11:12
[2023-06-14] MEDS: PALIPERIDONE 3 MG TAB.ER.24 PO SCH ×2 (11:47→19:59)
[2023-06-14] MEDS: DULoxetine HCL 30 MG CAPSULE.DR PO SCH (11:47)
[2023-06-14 12:59] LABS: Basophils % (A) 0 %; Eosinophils # (A) 0.2 k/uL (0-0.7); Eosinophils % (A) 2 %; HCT 39.1 % (39.0-53.0); HGB 12.4 gm/dL (13.0-17.5); Lymphocytes # (A) 1.7 k/uL (1.0-4.8); Lymphocytes % (A) 17 %; MCH 30.1 pg (25.0-35.0); MCHC 31.7 g/dL (31.0-37.0); MCV 95.1 fL (80.0-100.0); Mean Platelet Volume 8.5; Monocytes # (A) 0.5 k/uL (0-1.0); Monocytes % (A) 4 %; Neutrophils # (A) 7.9 k/uL (1.3-7.7); Neutrophils % (A) 75 %; Platelet Count 265 k/uL (150-450); RBC 4.11 m/uL (4.30-5.90); RDW 12.6 % (11.5-15.5); WBC 10.5 k/uL (3.8-10.6)
[2023-06-14 13:20] LABS: ALT 21 U/L (4-49); AST 39 U/L (17-59); African American GFR (CKD) >90 (>60 ml/min/1.73 sqM); Albumin 4.3 g/dL (3.5-5.0); Alkaline Phosphatase 63 U/L (38-126); Anion Gap 5 mmol/L; Bilirubin, Delta 0.2 mg/dL (0.0-0.2); Bilirubin,Unconjugated 0.3 mg/dL (0.0-1.1); Blood Urea Nitrogen 14 mg/dL (9-20); Calcium 9.8 mg/dL (8.4-10.2); Carbon Dioxide 24 mmol/L (22-30); Chloride 104 mmol/L (98-107); Glucose 90 mg/dL (74-99); Non-African American GFR(CKD) >90 (>60 ml/min/1.73 sqM); Potassium 5.1 mmol/L (3.5-5.1); Sodium 133 mmol/L (137-145); Total Bilirubin 0.5 mg/dL (0.2-1.3); Total Protein 6.8 g/dL (6.3-8.2)
[2023-06-14] MEDS: LORazepam 1 MG TAB PO PRN (15:23)
[2023-06-14] MEDS: ATORVASTATIN 40 MG TAB PO SCH (19:59)
[2023-06-14] MEDS: TAMSULOSIN 0.4 MG CAP.ER.24H PO SCH (20:00)
[2023-06-15] MEDS: LORazepam 1 MG TAB PO PRN (00:45)
[2023-06-15] MEDS: hydrOXYzine HCL 25 MG TAB PO PRN (03:06)
[2023-06-15] MEDS: NICOTINE 14MG/24HR PATCH TRANSDERM SCH (08:45)
[2023-06-15] MEDS: BACITRACIN OINT 1 EACH PACKET TOPICAL PRN ×2 (08:50→17:49)
[2023-06-15] MEDS: SYMBICORT 160-4.5 MCG INHALER (MHU) INHALATION SCH ×2 (08:51→20:09)
[2023-06-15] MEDS: GABAPENTIN 300 MG CAP PO SCH ×3 (08:51→21:37)
[2023-06-15] MEDS: PALIPERIDONE 3 MG TAB.ER.24 PO SCH ×2 (08:51→20:09)
[2023-06-15] MEDS: amLODIPine 10 MG TAB PO SCH (08:51)
[2023-06-15] MEDS: PANTOPRAZOLE 40 MG TABLET PO SCH (08:51)
[2023-06-15] MEDS: DOCUSATE 100 MG CAP PO SCH ×2 (08:51→20:09)
[2023-06-15] MEDS: carvediloL 6.25 MG TAB PO SCH ×2 (08:51→17:38)
[2023-06-15] MEDS: SUCRALFATE 1 GM TAB PO SCH ×2 (08:51→20:09)
[2023-06-15] MEDS: LOSARTAN 50 MG TAB PO SCH (08:51)
[2023-06-15] MEDS: MELOXICAM 7.5 MG TAB PO SCH (08:52)
[2023-06-15] MEDS: FOLIC ACID 1 MG TAB PO SCH (08:52)
[2023-06-15] MEDS: DULoxetine HCL 30 MG CAPSULE.DR PO SCH ×2 (08:52→20:09)
[2023-06-15] MEDS: HYDROcodone/APAP 7.5-325MG 1 EACH TAB PO PRN ×2 (08:54→20:08)
[2023-06-15] MEDS ORDERED: LORazepam 1 MG TAB PO PRN (09:48)
--- NOTE | 2023-06-15 09:53 | P.PN ---
Progress Note - Text Progress Note Date: 06/15/23 Interval History: Patient was seen [wandering the hallways] and was directable and agreeable to speak with commercial insurance underwriter in the office. Patient appears to have mild improvement in his hygiene and grooming today. He states that he has a "attitude problem" and states that he got "pissed off" yesterday at the staff. He was fairly vague about this however was fairly focused on his medications. He states that the Ativan to help some. He claims that he also trouble sleeping last night and was pacing the hallways. He states that trazodone and Remeron don't help however was agreeable to try doxepin for tonight. He continues to have irritability and rambling at times, thought processes but more clear today. At this time patient denies any suicidal or homical ideations, intent or plan. Patient denies any auditory, visual hallucinations and denies any paranoia or delusions. Patient denies any side effects from the medications and has been compliant with meds. Mental Status Exam: General Appearance: Patient appears to be short in stature, unkempt pathak and hair. stated age is alert, argumentative at times. Superficial. Patient appears to have slightly disheveled hygiene and grooming. Behavior: Patient displays elevated psychomotor activity. less Argumentative. Irritable. Speech: Patient's speech is nonlinear, at times difficult to follow, and rapid, improving. nonpressured, and spontaneous. Mood/Affect: Patient reports their mood is "not good" Affect is slightly expansive Suicidality/Homicidality: Patient is denying any suicidal or homicidal intention, and/or plan. Perceptions: Patient denies any visual hallucinations and denies any auditory hallucinations Though content/process: Patient presents with a flight of ideas. Medication seeking. Rationalizing, poor insight. Memory and concentration: AOX3, grossly intact for the purposes of this session Judgment and insight: Poor, improving mildly IMPRESSIONS: Bipolar disorder, mixed episode Cannabis use disorder Nicotine dependence PLAN: -Patient is admitted under involuntary but converted to involuntary status to MHU for stabilization of psychiatric symptoms and safety. Patient not signed adult voluntary form and medication consent and is placed in patient's chart. -Medications : continue paliperidone 3 mg by mouth twice a day for mood stabilization/psychosis. increase Cymbalta 30 mg BID for mood/anxiety. added doxepin 10 mg qhs for sleep Continue home medication of [place] and neurontin -Vistaril and Zyprexa PRN for agitation/aggression -NRT - nicotine patch -SW on board for discharge planning. Encourage patient to participate in groups to work on coping skills. Will await deferral and court hearing date.
[2023-06-15] MEDS: CYCLOBENZAPRINE 10 MG TAB PO PRN (10:22)
[2023-06-15] MEDS: ATORVASTATIN 40 MG TAB PO SCH (20:09)
[2023-06-15] MEDS: DOXEPIN 10 MG CAP PO SCH (20:09)
[2023-06-15] MEDS: TAMSULOSIN 0.4 MG CAP.ER.24H PO SCH (20:09)
[2023-06-16] MEDS: SYMBICORT 160-4.5 MCG INHALER (MHU) INHALATION SCH ×2 (07:42→20:50)
[2023-06-16] MEDS: SUCRALFATE 1 GM TAB PO SCH ×2 (07:46→20:49)
[2023-06-16] MEDS: PANTOPRAZOLE 40 MG TABLET PO SCH (07:46)
[2023-06-16] MEDS: GABAPENTIN 300 MG CAP PO SCH ×3 (07:47→20:49)
[2023-06-16] MEDS: DULoxetine HCL 30 MG CAPSULE.DR PO SCH ×2 (07:47→20:49)
[2023-06-16] MEDS: DOCUSATE 100 MG CAP PO SCH ×2 (07:47→20:49)
[2023-06-16] MEDS: FOLIC ACID 1 MG TAB PO SCH (07:47)
[2023-06-16] MEDS: PALIPERIDONE 3 MG TAB.ER.24 PO SCH ×2 (07:48→20:49)
[2023-06-16] MEDS: MELOXICAM 7.5 MG TAB PO SCH (07:48)
[2023-06-16] MEDS: amLODIPine 10 MG TAB PO SCH (07:49)
[2023-06-16] MEDS: HYDROcodone/APAP 7.5-325MG 1 EACH TAB PO PRN ×2 (07:49→20:49)
[2023-06-16] MEDS: carvediloL 6.25 MG TAB PO SCH ×2 (07:49→18:26)
[2023-06-16] MEDS: LOSARTAN 50 MG TAB PO SCH (07:50)
[2023-06-16] MEDS: NICOTINE 14MG/24HR PATCH TRANSDERM SCH (08:00)
[2023-06-16] MEDS: CYCLOBENZAPRINE 10 MG TAB PO PRN (08:48)
--- NOTE | 2023-06-16 11:38 | P.PN ---
Progress Note - Text Progress Note Date: 06/16/23 Interval History: Patient was seen [wandering the hallways] and was directable and agreeable to speak with com writer in the office. Patient appears to have mild improvement in his hygiene and grooming today. Patient was claiming that his mood and anxiety even improving. He claims that his attitude is more "stable". He states that he likes the medications that he is on at this time. We spoke about compliance on medications the patient was agreeable to take the long-acting injection today. He states that he was able to sleep better with the doxepin last night. He continues to have irritability and rambling at times, was fairly focused on discharge however his thought processes but more clear today. He needs to display fairly limited/poor insight and judgment. At this time patient denies any suicidal or homical ideations, intent or plan. Patient denies any auditory, visual hallucinations and denies any paranoia or delusions. Patient denies any side effects from the medications and has been compliant with meds. Mental Status Exam: General Appearance: Patient appears to be short in stature, unkempt pathak and hair. stated age is alert, argumentative at times. Superficial. Patient appears to have slightly disheveled hygiene and grooming. Behavior: Patient displays elevated psychomotor activity. less Argumentative. His irritable today. Speech: Patient's speech is nonlinear, at times difficult to follow, and rapid, improving. nonpressured, and spontaneous. Mood/Affect: Patient reports their mood is "better" Affect is congruent Suicidality/Homicidality: Patient is denying any suicidal or homicidal intention, and/or plan. Perceptions: Patient denies any visual hallucinations and denies any auditory hallucinations Though content/process: Patient presents with a flight of ideas. Just on discharge. Rationalizing, poor insight. Memory and concentration: AOX3, grossly intact for the purposes of this session Judgment and insight: Chronically Poor, improving mildly IMPRESSIONS: Bipolar disorder, mixed episode Cannabis use disorder Nicotine dependence PLAN: -Patient is admitted under involuntary but converted to involuntary status to MHU for stabilization of psychiatric symptoms and safety. Patient not signed adult voluntary form and medication consent and is placed in patient's chart. -Medications : continue paliperidone 3 mg by mouth twice a day for mood stabilization/psychosis. will give invega sustenna 234 mg IM today. Cymbalta 30 mg BID for mood/anxiety. doxepin 10 mg qhs for sleep Continue home medication of [place] and neurontin -Vistaril and Zyprexa PRN for agitation/aggression -NRT - nicotine patch -SW on board for discharge planning. Encourage patient to participate in groups to work on coping skills. patient signed deferral with laundry laborer. likely discharge on wednesday after patient is transitioned onto [facility] and has a place to go
[2023-06-16] MEDS ORDERED: PALIPERIDONE IM 234 MG/1.5 ML SYG IM ONE (18:00)
[2023-06-16] MEDS: BACITRACIN OINT 1 EACH PACKET TOPICAL PRN (18:31)
[2023-06-16] MEDS: TAMSULOSIN 0.4 MG CAP.ER.24H PO SCH (20:49)
[2023-06-16] MEDS: ATORVASTATIN 40 MG TAB PO SCH (20:49)
[2023-06-16] MEDS: DOXEPIN 10 MG CAP PO SCH (20:50)
[2023-06-17] MEDS: hydrOXYzine HCL 25 MG TAB PO PRN (00:13)
[2023-06-17 07:09] VITALS: RESP 16; TEMP 98.2
[2023-06-17] MEDS: HYDROcodone/APAP 7.5-325MG 1 EACH TAB PO PRN ×2 (08:29→21:18)
[2023-06-17] MEDS: GABAPENTIN 300 MG CAP PO SCH ×3 (08:29→23:44)
[2023-06-17] MEDS: LOSARTAN 50 MG TAB PO SCH (08:30)
[2023-06-17] MEDS: PALIPERIDONE 3 MG TAB.ER.24 PO SCH (08:30)
[2023-06-17] MEDS: amLODIPine 10 MG TAB PO SCH (08:30)
[2023-06-17] MEDS: SUCRALFATE 1 GM TAB PO SCH ×2 (08:30→23:44)
[2023-06-17] MEDS: DOCUSATE 100 MG CAP PO SCH ×2 (08:30→23:43)
[2023-06-17] MEDS: carvediloL 6.25 MG TAB PO SCH ×2 (08:30→18:15)
[2023-06-17] MEDS: DULoxetine HCL 30 MG CAPSULE.DR PO SCH ×2 (08:31→23:43)
[2023-06-17] MEDS: FOLIC ACID 1 MG TAB PO SCH (08:31)
[2023-06-17] MEDS: PANTOPRAZOLE 40 MG TABLET PO SCH (08:31)
[2023-06-17] MEDS: MELOXICAM 7.5 MG TAB PO SCH (08:31)
[2023-06-17] MEDS: NICOTINE 14MG/24HR PATCH TRANSDERM SCH (08:31)
[2023-06-17] MEDS: SYMBICORT 160-4.5 MCG INHALER (MHU) INHALATION SCH ×2 (08:31→21:16)
[2023-06-17] MEDS: BACITRACIN OINT 1 EACH PACKET TOPICAL PRN ×3 (08:32→21:19)
--- NOTE | 2023-06-17 11:06 | P.PN ---
Progress Note - Text Progress Note Date: 06/17/23 Interval History: Patient was seen [wandering the hallways] and was directable and agreeable to speak with singer songwriter in the office. Patient claims that he is doing better today in terms of his mood. Patient appears to have mild improvement in his hygiene and grooming today. I'm that he tolerated the long-acting injection yesterday fairly well. He states that he was able to sleep better with the doxepin last night wants to remain on the same medication. These be fairly focused on discharge, He continues to display limited/poor insight and judgment, improving mildly. At this time patient denies any suicidal or homical ideations, intent or plan. Patient denies any auditory, visual hallucinations and denies any paranoia or delusions. Patient denies any side effects from the medications and has been compliant with meds. Mental Status Exam: General Appearance: Patient appears to be short in stature, unkempt pathak and hair. stated age is alert, argumentative at times. Superficial. Patient appears to have slightly disheveled hygiene and grooming. Behavior: Patient displays elevated psychomotor activity. Not irritable today. More directable. Speech: Patient's speech is nonlinear, concrete. Mood/Affect: Patient reports their mood is "better" Affect is congruent and constricted Suicidality/Homicidality: Patient is denying any suicidal or homicidal intention, and/or plan. Perceptions: Patient denies any visual hallucinations and denies any auditory hallucinations Though content/process: Goal oriented. Focused on on discharge. Memory and concentration: AOX3, grossly intact for the purposes of this session Judgment and insight: Chronically Poor, improving mildly IMPRESSIONS: Bipolar disorder, mixed episode Cannabis use disorder Nicotine dependence PLAN: -Patient is admitted under involuntary but converted to involuntary status to MHU for stabilization of psychiatric symptoms and safety. Patient not signed adult voluntary form and medication consent and is placed in patient's chart. -Medications : Decrease paliperidone 3 mg daily at bedtime for mood stabi lization/psychosis, to be titrated off. Given invega sustenna 234 mg IM on 06/16, next dose of 156 mg IM will be due on 06/23 and maintenance dose will be due of 117 mg IM on 07/14. Cymbalta 30 mg BID for mood/anxiety. doxepin 10 mg qhs for sleep Continue home medication of [place] and neurontin -Vistaril and Zyprexa PRN for agitation/aggression -NRT - nicotine patch -SW on board for discharge planning. Encourage patient to participate in groups to work on coping skills. patient signed deferral with litigation attorney associate. likely discharge tomorrow
[2023-06-17] MEDS: DOXEPIN 10 MG CAP PO SCH (20:51)
[2023-06-17] MEDS ORDERED: PALIPERIDONE 3 MG TAB.ER.24 PO SCH (21:00)
[2023-06-17] MEDS: ATORVASTATIN 40 MG TAB PO SCH (23:43)
[2023-06-17] MEDS: TAMSULOSIN 0.4 MG CAP.ER.24H PO SCH (23:44)
[2023-06-18] MEDS: hydrOXYzine HCL 25 MG TAB PO PRN (01:11)
[2023-06-18] MEDS: MELOXICAM 7.5 MG TAB PO SCH (07:49)
[2023-06-18] MEDS: PANTOPRAZOLE 40 MG TABLET PO SCH (07:49)
[2023-06-18] MEDS: LOSARTAN 50 MG TAB PO SCH (07:50)
[2023-06-18] MEDS: SUCRALFATE 1 GM TAB PO SCH (07:50)
[2023-06-18] MEDS: carvediloL 6.25 MG TAB PO SCH (07:50)
[2023-06-18] MEDS: FOLIC ACID 1 MG TAB PO SCH (07:50)
[2023-06-18] MEDS: amLODIPine 10 MG TAB PO SCH (07:50)
[2023-06-18] MEDS: DOCUSATE 100 MG CAP PO SCH (07:50)
[2023-06-18] MEDS: DULoxetine HCL 30 MG CAPSULE.DR PO SCH (07:50)
[2023-06-18] MEDS: NICOTINE 14MG/24HR PATCH TRANSDERM SCH (07:51)
[2023-06-18] MEDS: SYMBICORT 160-4.5 MCG INHALER (MHU) INHALATION SCH (07:51)
[2023-06-18] MEDS: HYDROcodone/APAP 7.5-325MG 1 EACH TAB PO PRN (07:55)
[2023-06-18 07:59] VITALS: BP 128/80; PULSE 77
[2023-06-18] MEDS: GABAPENTIN 300 MG CAP PO SCH (08:43)
[2023-06-18] MEDS ORDERED: PALIPERIDONE 3 MG TAB.ER.24 PO ONE (09:50)
--- NOTE | 2023-06-18 10:23 | P.DS ---
Providers Date of admission: 06/13/23 11:34 Expected date of discharge: 06/18/23 Attending physician: Broderick Mendiola MD Consults: 06/13/23 11:36 Consult Physician Routine Consulting Provider: Leida Tipton Consult Reason/Comments: history and physical Do you want consulting provider notified?: Yes Primary care physician: Stated None - Discharge Diagnosis(es) (1) Bipolar disorder, current episode mixed Current Visit: Yes Status: Acute Priority: High (2) Cannabis use disorder Current Visit: Yes Status: Acute Priority: High (3) Nicotine dependence Current Visit: Yes Status: Acute Priority: Low Hospital Course: Admission HPI: Admission note was completed by conventional mortgage underwriter "Patient is a single, unemployed 47 year old [place]uasian male with a significant history of Bipolar disorder, currently homeless. Patient presented to the hospital yesterday with altered mental status, making homicidal threats and suicidal ideations. Patient was petition and certificate was completed in the ER. Patient was just discharged from the mental health unit on 06/03 with a diagnosis of bipolar disorder and opiate dependence. Patient was agreeable to seen today by conventional mortgage underwriter. Patient appeared to have poor hygiene and grooming, along pathak and long hair. He appeared to have very poor insight into his condition and need for treatment. He claims that he was down to his brother's house and claims that he didn't get along with his son and he told him to leave. He states that he left without his phone working in claims that he needed a ride. He claims that the criminal justice instructor came to pick him up as he was "just laying there". He states that he became pissed off and the criminal justice instructor brought him into the hospital. He was fairly concrete, illogical at times and argumentative. Very low frustration tolerance. He claims that he has mood swings and "gets mad easily". Claims that he has depression and anxiety as well. States that he is having homicidal thoughts however did not intend or mention a specific target. Denies any homicidal ideations. He is not reporting any auditory or visual hallucinations. The patient reports that he has been open with [facility] however has been nonadherent with any outpatient treatment. " Hospital course: Upon admission to the unit patient was admitted involuntarily on a petition and certificate and a second certificate was completed and faxed with the courts. Patient ended up signing a deferral with the mergers and acquisitions attorney and agreeing to treatment. Patient got along well with other patients on the unit and followed unit protocol. Patient was compliant with the medications and denied any side effects throughout hospital course. Patient was started on paliperidone by mouth up to 3 mg twice a day for mood stabilization/agitation, patient was given Invega Sustenna 234 mg loading dose IM on 06/16, next dose to be due on 06/23 of 156 mg IM. Maintenance to dose will be due on 07/14 of 117 mg IM. Cymbalta 30 mg twice a day for mood/anxiety, doxepin 10 mg daily at bedtime for sleep/mood. Patient spoke of his stressors and engaged in therapy both group and individual. Patient was also seen by medical team for history and physical exam. Throughout the course of the hospitalization patient gradually improved with regards to mood, anxiety, mood lability/agitation, sleep and returned back to their baseline level of functioning. On the day of discharge patient denied any suicidal or homicidal ideations intent or plan denied any auditory or visual hallucinations. Patient endorsed wanting to live for his health and future. The patient denied any access to guns or weapons. Patient denied any paranoia and did not endorse any delusions. Patient does have a significant history of substance abuse and was counseled on abstaining from all substances including alcohol and marijuana. Patient was offered however declined inpatient substance- abuse rehab. Patient elected to do outpatient substance use treatment program through [facility]. Patient was also counseled on the medications and need for regular compliance and was encouraged to follow-up with their outpatient appointment for mental health and also for primary care. Mental status exam: General Appearance: Patient appears to be thin, short in stature, long hair and appeared, stated age is alert, pleasant, and cooperative. Patient is in no acute distress and has improved hygiene and grooming Behavior: Patient is calmly seated without any agitated behavior. Speech: Patient's speech is fluent and nonpressured. Mood/Affect: Patient reports their mood is "better", affect is congruent and euthymic. Suicidality/Homicidality: Patient denies having any suicidal or homicidal ideation intent or plan. Perceptions: Patient denies any auditory or visual hallucinations. Though content/process: There is no evidence of any delusional thought content and thought process is linear and goal-directed. more future oriented Memory and concentration: AOX3, grossly intact for the purposes of this session. Can spell "WORLD" backwards correctly. Judgment and insight: chronically poor, however has improved with guarded prognosis Impression: Bipolar disorder, mixed episode Cannabis use disorder Nicotine dependence] Plan: -Continue with discharge today as patient has improved and stabilized psychiatrically and is not currently an imminent threat to [himself] and/or others. [Patient will remain at chronically elevated risk for harm to self and/or others due to his impulsivity and polysubstance abuse.] -Continue medications: Discontinue by mouth paliperidone, patient was transitioned onto Invega Sustenna given loading dose of 234 mg IM on 06/16, next dose will be given as an outpatient of 156 mg IM on 06/21, maintenance dose will be due on 07/14 of 117 mg IM. Cymbalta 60 mg by mouth daily for mood/anxiety/pain, doxepin 10 mg daily at bedtime for sleep/mood. -Patient was counseled on the need for medication compliance and appropriate follow-up at mental health and also primary care for medical issues. Patient verbalized understanding and agreed. -Social work to [arrange for and conduct family meeting to ensure safety upon discharge and answer any questions/concerns.] Social work also to arrange for patients follow up appointments [with [facility]] for psychiatric care along with follow up with primary care provider. -Patient counseled on abstaining from recreational drugs and marijuana and alcohol. Was informed/educated on the adverse effects on their physical and mental health. [Patient verbally agreed and understood]. [Patient was offered substance abuse treatment however declined at this time.] -Patient was instructed to return to the hospital or seek immediate medical care if their psychiatric or medical symptoms do worsen or reoccur. Allergies Allergy/AdvReac Type Severity Reaction Status Date / Time tramadol Allergy Severe Itching Verified 06/13/23 11:48 morphine Allergy Unknown Verified 06/13/23 11:48 hydromorphone [From Dilaudid] AdvReac Confusion Verified 06/13/23 11:48 Laboratory Results WBC 10.5 k/uL (3.8-10.6) 06/14/23 12:10 RBC 4.11 m/uL (4.30-5.90) L 06/14/23 12:10 Hgb 12.4 gm/dL (13.0-17.5) L 06/14/23 12:10 Hct 39.1 % (39.0-53.0) 06/14/23 12:10 MCV 95.1 fL (80.0-100.0) 06/14/23 12:10 MCH 30.1 pg (25.0-35.0) 06/14/23 12:10 MCHC 31.7 g/dL (31.0-37.0) 06/14/23 12:10 RDW 12.6 % (11.5-15.5) 06/14/23 12:10 Plt Count 265 k/uL (150-450) 06/14/23 12:10 MPV 8.5 06/14/23 12:10 Neutrophils % 75 % 06/14/23 12:10 Lymphocytes % 17 % 06/14/23 12:10 Monocytes % 4 % 06/14/23 12:10 Eosinophils % 2 % 06/14/23 12:10 Basophils % 0 % 06/14/23 12:10 Neutrophils # 7.9 k/uL (1.3-7.7) H 06/14/23 12:10 Lymphocytes # 1.7 k/uL (1.0-4.8) 06/14/23 12:10 Monocytes # 0.5 k/uL (0-1.0) 06/14/23 12:10 Eosinophils # 0.2 k/uL (0-0.7) 06/14/23 12:10 Basophils # 0.0 k/uL (0-0.2) 06/14/23 12:10 Sodium 133 mmol/L (137-145) L 06/14/23 12:10 Potassium 5.1 mmol/L (3.5-5.1) 06/14/23 12:10 Chloride 104 mmol/L (98-107) 06/14/23 12:10 Carbon Dioxide 24 mmol/L (22-30) 06/14/23 12:10 Anion Gap 5 mmol/L 06/14/23 12:10 BUN 14 mg/dL (9-20) 06/14/23 12:10 Creatinine 0.82 mg/dL (0.66-1.25) 06/14/23 12:10 Est GFR (CKD-EPI)AfAm >90 (>60 ml/min/1.73 sqM) 06/14/23 12:10 Est GFR (CKD-EPI)NonAf >90 (>60 ml/min/1.73 sqM) 06/14/23 12:10 Glucose 90 mg/dL (74-99) 06/14/23 12:10 Calcium 9.8 mg/dL (8.4-10.2) 06/14/23 12:10 Total Bilirubin 0.5 mg/dL (0.2-1.3) 06/14/23 12:10 Conjugated Bilirubin 0.0 mg/dL (0.0-0.3) 06/14/23 12:10 Unconjugated Bilirubin 0.3 mg/dL (0.0-1.1) 06/14/23 12:10 Delta Bilirubin 0.2 mg/dL (0.0-0.2) 06/14/23 12:10 AST 39 U/L (17-59) 06/14/23 12:10 ALT 21 U/L (4-49) 06/14/23 12:10 Alkaline Phosphatase 63 U/L (38-126) 06/14/23 12:10 Total Protein 6.8 g/dL (6.3-8.2) 06/14/23 12:10 Albumin 4.3 g/dL (3.5-5.0) 06/14/23 12:10 TSH 1.520 mIU/L (0.465-4.680) 06/14/23 12:10 Coronavirus (PCR) Not Detected (Not Detectd) 06/13/23 10:57 Vital Signs Temp 98.2 F 06/17/23 06:52 Pulse 77 06/18/23 07:58 Resp 16 06/17/23 06:52 BP 128/80 06/18/23 07:58 Pulse Ox 98 06/15/23 00:46 FiO2 Patient Condition at Discharge: Stable Plan - Discharge Summary New Discharge Prescriptions: New Doxepin [SINEquan] 10 mg PO HS 14 Days #14 cap Acetaminophen Tab [Tylenol] 500 mg PO BID PRN tab PRN Reason: Pain DULoxetine HCL [Cymbalta] 60 mg PO DAILY 14 Days #14 cap Paliperidone IM [Invega Sustenna] 156 mg IM ONCE #1 ml Paliperidone Palmitate [Invega Sustenna] 117 mg IM QMONTHLY #1 each Ibuprofen [Motrin] 600 mg PO BID PRN tab PRN Reason: MODERATE PAIN 4-6 Continue Sucralfate [Carafate] 1 gm PO Q12H carvediloL [Coreg] 6.25 mg PO BID-W/MEALS Albuterol Inhaler [Ventolin Hfa Inhaler] 2 puff INHALATION RT-Q4H PRN PRN Reason: Coigh & Wheezing Atorvastatin [Lipitor] 40 mg PO HS amLODIPine [Norvasc] 10 mg PO DAILY Fluticasone Propion/Salmeterol [Advair Hfa 115-21 Mcg Inhaler] 2 puff INHALATION RT-BID 1 Days #1 each Docusate [Colace] 100 mg PO BID 15 Days #30 cap Nicotine 14Mg/24Hr Patch [Habitrol] 1 patch TRANSDERM DAILY 14 Days #14 patch Tamsulosin [Flomax] 0.8 mg PO HS HYDROcodone/APAP 7.5-325MG [[place] 7.5-325] 1 tab PO BID PRN PRN Reason: Pain Gabapentin 600 mg PO TID Folic Acid 1 mg PO DAILY Celecoxib [CeleBREX] 100 mg PO BID Losartan Potassium [Cozaar] 100 mg PO DAILY Cyclobenzaprine [Flexeril] 10 mg PO BID PRN PRN Reason: Muscle Spasm Nitroglycerin Sl Tabs [Nitrostat] 0.4 mg SL Q5M PRN PRN Reason: Chest Pain Omeprazole 40 mg PO DAILY 14 Days #14 cap Changed hydrOXYzine pamoate [Vistaril] 25 mg PO DAILY PRN 14 Days #14 capsule PRN Reason: Anxiety Discontinued Acetaminophen Tab [Tylenol] 500 mg PO BID PRN PRN Reason: Pain QUEtiapine [SEROquel] 75 mg PO DAILY 30 Days #90 tab FLUoxetine HCL [PROzac] 40 mg PO DAILY 30 Days #60 cap QUEtiapine [SEROquel] 300 mg PO HS 30 Days #90 tab Discharge Medication List Albuterol Inhaler [Ventolin Hfa Inhaler] 2 puff INHALATION RT-Q4H PRN 12/10/22 [History] Celecoxib [CeleBREX] 100 mg PO BID 12/10/22 [History] Folic Acid 1 mg PO DAILY 12/10/22 [History] Gabapentin 600 mg PO TID 12/10/22 [History] HYDROcodone/APAP 7.5-325MG [[place] 7.5-325] 1 tab PO BID PRN 12/10/22 [History] Sucralfate [Carafate] 1 gm PO Q12H 12/10/22 [History] Tamsulosin [Flomax] 0.8 mg PO HS 12/10/22 [History] carvediloL [Coreg] 6.25 mg PO BID-W/MEALS 12/10/22 [History] Atorvastatin [Lipitor] 40 mg PO HS 02/03/23 [History] Losartan Potassium [Cozaar] 100 mg PO DAILY 02/03/23 [History] Cyclobenzaprine [Flexeril] 10 mg PO BID PRN 04/20/23 [History] Nitroglycerin Sl Tabs [Nitrostat] 0.4 mg SL Q5M PRN 04/20/23 [History] amLODIPine [Norvasc] 10 mg PO DAILY 04/20/23 [History] Acetaminophen Tab [Tylenol] 500 mg PO BID PRN tab 06/18/23 [Rx] DULoxetine HCL [Cymbalta] 60 mg PO DAILY 14 Days #14 cap 06/18/23 [Rx] Docusate [Colace] 100 mg PO BID 15 Days #30 cap 06/18/23 [Rx] Doxepin [SINEquan] 10 mg PO HS 14 Days #14 cap 06/18/23 [Rx] Fluticasone Propion/Salmeterol [Advair Hfa 115-21 Mcg Inhaler] 2 puff INHALATION RT-BID 1 Days #1 each 06/18/23 [Rx] Ibuprofen [Motrin] 600 mg PO BID PRN tab 06/18/23 [Rx] Nicotine 14Mg/24Hr Patch [Habitrol] 1 patch TRANSDERM DAILY 14 Days #14 patch 06/18/23 [Rx] Omeprazole 40 mg PO DAILY 14 Days #14 cap 06/18/23 [Rx] Paliperidone IM [Invega Sustenna] 156 mg IM ONCE #1 ml 06/18/23 [Rx] Paliperidone Palmitate [Invega Sustenna] 117 mg IM QMONTHLY #1 each 06/18/23 [Rx] hydrOXYzine pamoate [Vistaril] 25 mg PO DAILY PRN 14 Days #14 capsule 06/18/23 [Rx] Follow up Appointment(s)/Referral(s): [facility] [Outside] - 06/18/23 8:00 am (06/18/2023 8:00AM - 9:00AM JONATHAN BARRERA 06/21/2023 1:00PM - 2:00PM MAXIMO TRINH ) Jose Alfredo Swartz MD [STAFF PHYSICIAN] - 06/23/23 11:45 am None,Stated [Primary Care Provider] - 1-2 days Activity/Diet/Wound Care/Special Instructions: Avoid the use of street drugs and alcohol. Take all medications as prescribed. When you are in need of refills on your medications, please contact your medical provider and/or outpatient psychiatrist/provider to have this done. Please go to your scheduled outpatient appointment for aftercare treatment. If symptoms return or become worse, call the crisis line at and/or go to the nearest emergency room for evaluation. National Suicide Hotline 122. Discharge Disposition: OTHER INSTITUTION NOT DEFINED
== END 2023-06-18 11:47 | disposition home or self-care (01) | DRG 885 ==
LOC: EC 00:43 → 3MHU 11:34
PROVIDERS: ADMIT Psychiatry & Neurology Psychiatry; ATTEND Psychiatry & Neurology Psychiatry
DX: F31.60 Bipolar disorder, current episode mixed, unspecified (principal); R45.851 Suicidal ideations; F11.20 Opioid dependence, uncomplicated; F12.10 Cannabis abuse, uncomplicated; R45.850 Homicidal ideations; F41.0 Panic disorder [episodic paroxysmal anxiety]; E78.5 Hyperlipidemia, unspecified; I25.10 Atherosclerotic heart disease of native coronary artery without angina pectoris; I10 Essential (primary) hypertension; I25.2 Old myocardial infarction; F17.200 Nicotine dependence, unspecified, uncomplicated; Z71.6 Tobacco abuse counseling; Z79.1 Long term (current) use of non-steroidal anti-inflammatories (NSAID); Z79.51 Long term (current) use of inhaled steroids; Z79.899 Other long term (current) drug therapy; Z56.0 Unemployment, unspecified; Z59.00 Homelessness unspecified; Z88.5 Allergy status to narcotic agent; Z71.51 Drug abuse counseling and surveillance of drug abuser; Z71.41 Alcohol abuse counseling and surveillance of alcoholic
CPT/HCPCS: 80053; 82075; 82248; 84443; 85025; 87635; 96372; 99285; 99291

== ENCOUNTER 2023-07-30 06:36 | Emergency (ER) | payer MEDICARE, OTHER ==
--- NOTE | 2023-07-30 06:41 | ED ---
Psych HPI - General Stated Complaint: Mental Health Time Seen by Provider: 07/30/23 06:41 Source: RN notes reviewed - History of Present Illness Initial Comments: Patient is 47-year-old male who presents the emergency department for homicidal ideation. States the police told him to leave his ex-girlfriend's house with all this stuff in it and now he has thoughts of harming his ex girlfriend. He denies suicidal ideation. Does admit to hearing voices. No visual hallucinations. Denies alcohol and drug use. - Related Data Home Medications Medication Instructions Recorded Confirmed Albuterol Inhaler [Ventolin Hfa 2 puff INHALATION RT-Q4H PRN 12/10/22 06/13/23 Inhaler] Celecoxib [CeleBREX] 100 mg PO BID 12/10/22 06/13/23 Folic Acid 1 mg PO DAILY 12/10/22 06/13/23 Gabapentin 600 mg PO TID 12/10/22 06/13/23 HYDROcodone/APAP 7.5-325MG [Claude 1 tab PO BID PRN 12/10/22 06/13/23 7.5-325] Sucralfate [Carafate] 1 gm PO Q12H 12/10/22 06/13/23 Tamsulosin [Flomax] 0.8 mg PO HS 12/10/22 06/13/23 carvediloL [Coreg] 6.25 mg PO BID-W/MEALS 12/10/22 06/13/23 Atorvastatin [Lipitor] 40 mg PO HS 02/03/23 06/13/23 Losartan Potassium [Cozaar] 100 mg PO DAILY 02/03/23 06/13/23 Cyclobenzaprine [Flexeril] 10 mg PO BID PRN 04/20/23 06/13/23 Nitroglycerin Sl Tabs [Nitrostat] 0.4 mg SL Q5M PRN 04/20/23 06/13/23 amLODIPine [Norvasc] 10 mg PO DAILY 04/20/23 06/13/23 Previous Rx's Medication Instructions Recorded Acetaminophen Tab [Tylenol] 500 mg PO BID PRN tab 06/18/23 DULoxetine HCL [Cymbalta] 60 mg PO DAILY 14 Days #14 cap 06/18/23 Docusate [Colace] 100 mg PO BID 15 Days #30 cap 06/18/23 Doxepin [SINEquan] 10 mg PO HS 14 Days #14 cap 06/18/23 Fluticasone Propion/Salmeterol 2 puff INHALATION RT-BID 1 Days #1 06/18/23 [Advair Hfa 115-21 Mcg Inhaler] each Ibuprofen [Motrin] 600 mg PO BID PRN tab 06/18/23 Nicotine 14Mg/24Hr Patch [Habitrol] 1 patch TRANSDERM DAILY 14 Days 06/18/23 #14 patch Omeprazole 40 mg PO DAILY 14 Days #14 cap 06/18/23 Paliperidone IM [Invega Sustenna] 156 mg IM ONCE #1 ml 06/18/23 Paliperidone Palmitate [Invega 117 mg IM QMONTHLY #1 each 06/18/23 Sustenna] hydrOXYzine pamoate [Vistaril] 25 mg PO DAILY PRN 14 Days #14 06/18/23 capsule Allergies Allergy/AdvReac Type Severity Reaction Status Date / Time tramadol Allergy Severe Itching Verified 07/30/23 12:37 morphine Allergy Unknown Verified 07/30/23 12:37 hydromorphone [From Dilaudid] AdvReac Confusion Verified 07/30/23 12:37 Review of Systems ROS Statement: Those systems with pertinent positive or pertinent negative responses have been documented in the HPI. ROS Other: All systems not noted in ROS Statement are negative. Past Medical History Past Medical History: Coronary Artery Disease (CAD), Hyperlipidemia, Hypertension, Myocardial Infarction (ME) Additional Past Medical History / Comment(s): Recent bronchitis, states he had a withdrawl seizure Last Myocardial Infarction Date:: 2020 History of Any Multi-Drug Resistant Organisms: None Reported Past Surgical History: Cholecystectomy, Heart Catheterization Past Anesthesia/Blood Transfusion Reactions: No Reported Reaction Additional Past Anesthesia/Blood Transfusion Reaction / Comment(s): Pt has never had surgery. Past Psychological History: Anxiety, Bipolar, Depression, Panic Disorder Smoking Status: Current every day smoker Past Alcohol Use History: Daily, Heavy Past Drug Use History: Marijuana - Past Family History Father Family Medical History: Myocardial Infarction (ME) Additional Family Medical History / Comment(s): Father of a ME at the age of 41 yrs. Mother Family Medical History: Diabetes Mellitus General Exam - General Exam Comments Initial Comments: Visual Physical Exam Vital signs reviewed General: Well-appearing, nontoxic, no acute distress. Head: Normocephalic, atraumatic Eyes: PERRLA, EOMI ENT: Airway patent Chest: Nonlabored breathing Skin: No visual rash, normal skin tone Neuro: Alert and oriented 3 Musculoskeletal: No gross abnormalities General appearance: alert, in no apparent distress Head exam: Present: atraumatic, normocephalic, normal inspection Eye exam: Present: normal appearance, PERRL, EOMI. Absent: scleral icterus, conjunctival injection, periorbital swelling Respiratory exam: Present: normal lung sounds bilaterally. Absent: respiratory distress, wheezes, rales, rhonchi, stridor Cardiovascular Exam: Present: regular rate, normal rhythm, normal heart sounds. Absent: systolic murmur, diastolic murmur, rubs, gallop, clicks Neurological exam: Present: alert Psychiatric exam: Present: normal affect, normal mood Skin exam: Present: warm, dry, intact, normal color. Absent: rash Course Vital Signs 07/30/23 07/30/23 06:42 08:47 Temperature 98.1 F 98.6 F Pulse Rate 113 H 66 Respiratory 18 18 Rate Blood Pressure 145/85 136/73 O2 Sat by Pulse 98 96 Oximetry Medical Decision Making - Medical Decision Making I performed the QuickNote portion of this chart - Tawanna Jeff PA-C Was pt. sent in by a medical professional or institution ([facility], [employer] SUPERVISOR, urgent care, hospital, or fci...) When possible be specific @ -No Did you speak to anyone other than the patient for history (EMS, parent, family, police, friend...)? What history was obtained from this source @ -No Did you review nursing and triage notes (agree or disagree)? Why? @ -I reviewed and agree with nursing and triage notes Were old charts reviewed (outside hosp., previous admission, EMS record, old EKG, old radiological studies, urgent care reports/EKG's, fci records)? Report findings @ -No old charts were reviewed Differential Diagnosis (chest pain, altered mental status, abdominal pain women, abdominal pain men, vaginal bleeding, weakness, fever, dyspnea, syncope, headache, dizziness, GI bleed, back pain, seizure, CVA, palpatations, mental health)? @ -Differential Mental Health Depression, anxiety, bipolar, psychosis, schizophrenia, borderline personality, situational depression, adjustment disorder, behavioral disorder, brain tumor, malingering, substance abuse, encephalopathy, medication reaction, dementia, hypothyroidism, degenerative neurologic disorder, lupus.... This is not meant to be all-inclusive list EKG interpreted by me (3pts min.). @ -As above X-rays interpreted by me (1pt min.). @ -None done CT interpreted by me (1pt min.). @ -None done U/S interpreted by me (1pt. min.). @ -None done What testing was considered but not performed or refused? (CT, X-rays, U/S, labs)? Why? @ -None What meds were considered but not given or refused? Why? @ -None Did you discuss the management of the patient with other professionals (professionals i.e. , PA, [employer] TIME SALES SUPERVISOR, lab, RT, psych nurse, social services analyst, tension worker, teacher, personnel officer, nurse case management)? Give summary @ -No Was smoking cessation discussed for >3mins.? @ -No Was critical care preformed (if so, how long)? @ -No Were there social determinants of health that impacted care today? How? (Homelessness, low income, unemployed, alcoholism, drug addiction, transportation, low edu. Level, literacy, decrease access to med. care, assisted, rehab)? @ -No Was there de-escalation of care discussed even if they declined (Discuss DNR or withdrawal of care, Hospice)? DNR status @ -No What co-morbidities impacted this encounter? (DM, HTN, Smoking, COPD, CAD, Cancer, CVA, ARF, Chemo, Hep., AIDS, mental health diagnosis, sleep apnea, morbid obesity)? @ -None Was patient admitted / discharged? Hospital course, mention meds given and route, prescriptions, significant lab abnormalities, going to OR and other pertinent info. @ -47-year-old presenting for psychiatric evaluation. Further evaluation with laboratory studies and imaging is not indicated at this time. Alcohol breathalyzer 0. Patient is cleared for EPS Patient evaluated by EPS and deemed stable for discharge. Patient was given 1 dose of ativan for anxiety he follows with [facility] and will schedule an appointment for follow up Undiagnosed new problem with uncertain prognosis? @ -No Drug Therapy requiring intensive monitoring for toxicity (Heparin, Nitro, Insulin, Cardizem)? @ -No Were any procedures done? @ -No Diagnosis/symptom? @ -Homicidal ideation Acute, or Chronic, or Acute on Chronic? @ -Acute Uncomplicated (without systemic symptoms) or Complicated (systemic symptoms)? @ -Uncomplicated Side effects of treatment? @ -No Exacerbation, Progression, or Severe Exacerbation? @ -No Poses a threat to life or bodily function? How? (Chest pain, USA, ME, pneumonia, PE, COPD, DKA, ARF, appy, cholecystitis, CVA, Diverticulitis, Homicidal, Suicidal, threat to staff... and all critical care pts) @ -No Dr. Preciado is my attending Disposition Clinical Impression: Homicidal ideation Disposition: HOME SELF-CARE Condition: Good Instructions (If sedation given, give patient instructions): Anxiety (ED) Additional Instructions: Follow up with [facility]. Return to the ED if you experience new, concerning, or worsening symptoms. Is patient prescribed a controlled substance at d/c from ED?: No Referrals: None,Stated [Primary Care Provider] - 1-2 days
[2023-07-30 06:48] VITALS: RESP 18
[2023-07-30 09:57] VITALS: BP 136/73; PULSE 66; TEMP 98.6
[2023-07-30] MEDS ORDERED: LORazepam 1 MG TAB PO STA (12:46)
[2023-07-30 20:53] LABS: Urine Alcohol Negative (Negative); Urine Barbiturate Negative (Negative); Urine Cocaine Negative (Negative); Urine Methadone Negative (Negative); Urine Opiates Negative (Negative); Urine Phencyclidine Negative (Negative)
== END 2023-07-30 13:07 | disposition home or self-care (01) ==
LOC: EC 06:36
DX: R45.850 Homicidal ideations (principal); I10 Essential (primary) hypertension; I25.2 Old myocardial infarction; I25.10 Atherosclerotic heart disease of native coronary artery without angina pectoris; E78.5 Hyperlipidemia, unspecified; F31.9 Bipolar disorder, unspecified; F41.9 Anxiety disorder, unspecified; F17.200 Nicotine dependence, unspecified, uncomplicated; F12.90 Cannabis use, unspecified, uncomplicated; Z79.899 Other long term (current) drug therapy; Z88.5 Allergy status to narcotic agent; Z90.49 Acquired absence of other specified parts of digestive tract
CPT/HCPCS: 80306; 82075; 99285

== ENCOUNTER 2024-01-22 19:25 | Emergency (ER) | payer MEDICARE, MEDICAID ==
--- NOTE | 2024-01-22 19:56 | ED ---
Altered Mental Status HPI - General Chief Complaint: Alcohol Stated Complaint: ETOH Time Seen by Provider: 01/22/24 19:29 Source: EMS, RN notes reviewed, old records reviewed Mode of arrival: EMS Limitations: no limitations - History of Present Illness Initial Comments: This is a 48-year-old male to the ER for evaluation today. Patient presents today for evaluation of altered mental status and likely intoxication. Patient is well-known to this emergency department for substance issues MD Complaint: altered mental status, confusion, decreased responsiveness, intoxication -: unknown Severity: severe Consistency of Symptoms: getting worse, constant Context: alcohol abuse, drug abuse Associated Symptoms: nausea/vomiting, weakness - Related Data Home Medications Medication Instructions Recorded Confirmed Albuterol Inhaler [Ventolin Hfa 2 puff INHALATION RT-Q4H PRN 12/10/22 06/13/23 Inhaler] Celecoxib [CeleBREX] 100 mg PO BID 12/10/22 06/13/23 Folic Acid 1 mg PO DAILY 12/10/22 06/13/23 Gabapentin 600 mg PO TID 12/10/22 06/13/23 HYDROcodone/APAP 7.5-325MG [Bellamy 1 tab PO BID PRN 12/10/22 06/13/23 7.5-325] Sucralfate [Carafate] 1 gm PO Q12H 12/10/22 06/13/23 Tamsulosin [Flomax] 0.8 mg PO HS 12/10/22 06/13/23 carvediloL [Coreg] 6.25 mg PO BID-W/MEALS 12/10/22 06/13/23 Atorvastatin [Lipitor] 40 mg PO HS 02/03/23 06/13/23 Losartan Potassium [Cozaar] 100 mg PO DAILY 02/03/23 06/13/23 Cyclobenzaprine [Flexeril] 10 mg PO BID PRN 04/20/23 06/13/23 Nitroglycerin Sl Tabs [Nitrostat] 0.4 mg SL Q5M PRN 04/20/23 06/13/23 amLODIPine [Norvasc] 10 mg PO DAILY 04/20/23 06/13/23 Previous Rx's Medication Instructions Recorded Acetaminophen Tab [Tylenol] 500 mg PO BID PRN tab 06/18/23 DULoxetine HCL [Cymbalta] 60 mg PO DAILY 14 Days #14 cap 06/18/23 Docusate [Colace] 100 mg PO BID 15 Days #30 cap 06/18/23 Doxepin [SINEquan] 10 mg PO HS 14 Days #14 cap 06/18/23 Fluticasone Propion/Salmeterol 2 puff INHALATION RT-BID 1 Days #1 06/18/23 [Advair Hfa 115-21 Mcg Inhaler] each Ibuprofen [Motrin] 600 mg PO BID PRN tab 06/18/23 Nicotine 14Mg/24Hr Patch [Habitrol] 1 patch TRANSDERM DAILY 14 Days 06/18/23 #14 patch Omeprazole 40 mg PO DAILY 14 Days #14 cap 06/18/23 Paliperidone IM [Invega Sustenna] 156 mg IM ONCE #1 ml 06/18/23 Paliperidone Palmitate [Invega 117 mg IM QMONTHLY #1 each 06/18/23 Sustenna] hydrOXYzine pamoate [Vistaril] 25 mg PO DAILY PRN 14 Days #14 06/18/23 capsule Allergies Allergy/AdvReac Type Severity Reaction Status Date / Time tramadol Allergy Severe Itching Verified 07/30/23 12:37 morphine Allergy Unknown Verified 07/30/23 12:37 hydromorphone [From Dilaudid] AdvReac Confusion Verified 07/30/23 12:37 Review of Systems ROS Statement: Those systems with pertinent positive or pertinent negative responses have been documented in the HPI. ROS Other: All systems not noted in ROS Statement are negative. Past Medical History Past Medical History: Coronary Artery Disease (CAD), Hyperlipidemia, Hypertension, Myocardial Infarction (ME) Additional Past Medical History / Comment(s): Recent bronchitis, states he had a withdrawl seizure Last Myocardial Infarction Date:: 2020 History of Any Multi-Drug Resistant Organisms: None Reported Past Surgical History: Cholecystectomy, Heart Catheterization Past Anesthesia/Blood Transfusion Reactions: No Reported Reaction Additional Past Anesthesia/Blood Transfusion Reaction / Comment(s): Pt has never had surgery. Past Psychological History: Anxiety, Bipolar, Depression, Panic Disorder Smoking Status: Current every day smoker Past Alcohol Use History: Daily, Heavy Past Drug Use History: Marijuana - Past Family History Father Family Medical History: Myocardial Infarction (ME) Additional Family Medical History / Comment(s): Father of a ME at the age of 41 yrs. Mother Family Medical History: Diabetes Mellitus General Exam Limitations: no limitations General appearance: alert, in no apparent distress Head exam: Present: atraumatic, normocephalic, normal inspection Eye exam: Present: normal appearance, PERRL, EOMI. Absent: scleral icterus, conjunctival injection, periorbital swelling ENT exam: Present: normal exam, mucous membranes moist Neck exam: Present: normal inspection. Absent: tenderness, meningismus, lymphadenopathy Respiratory exam: Present: normal lung sounds bilaterally. Absent: respiratory distress, wheezes, rales, rhonchi, stridor Cardiovascular Exam: Present: regular rate, normal rhythm, normal heart sounds. Absent: systolic murmur, diastolic murmur, rubs, gallop, clicks GI/Abdominal exam: Present: soft, normal bowel sounds. Absent: distended, tenderness, guarding, rebound, rigid Extremities exam: Present: normal inspection, full ROM, normal capillary refill. Absent: tenderness, pedal edema, joint swelling, calf tenderness Back exam: Present: normal inspection Neurological exam: Present: alert, oriented X3, CN II-XII intact Psychiatric exam: Present: normal affect, normal mood Skin exam: Present: warm, dry, intact, normal color. Absent: rash Course Vital Signs 01/22/24 01/22/24 01/22/24 19:32 19:40 21:05 Temperature 98.2 F Pulse Rate 79 100 95 Respiratory 18 22 18 Rate Blood Pressure 136/78 141/98 133/89 O2 Sat by Pulse 96 95 96 Oximetry 01/22/24 01/22/24 01/23/24 22:33 23:22 00:07 Temperature 98.0 F Pulse Rate 95 80 73 Respiratory 18 16 16 Rate Blood Pressure 133/89 128/82 96/63 O2 Sat by Pulse 96 97 95 Oximetry 01/23/24 01/23/24 01/23/24 02:05 04:52 09:01 Temperature 97.9 F Pulse Rate 76 63 78 Respiratory 16 18 18 Rate Blood Pressure 109/65 133/67 134/78 O2 Sat by Pulse 95 98 Oximetry - Reevaluation(s) Reevaluation #1: Records reviewed Reevaluation #2: Patient's symptoms are improved Patient is able to ambulate and think clearly here in the emergency department Reevaluation #3: Patient informed of results and questions answered Patient continues to be awake and alert here in the ER and prefers discharge Reevaluation #4: Was pt. sent in by a medical professional or institution (, [facility], [employer]ERTER, urgent care, hospital, or group home...) When possible be specific @ -no Did you speak to anyone other than the patient for history (EMS, parent, family, police, friend...)? What history was obtained from this source @ -no Did you review nursing and triage notes (agree or disagree)? Why? @ -agree Are old charts reviewed (outside hosp., previous admission, EMS record, old EKG, old radiological studies, urgent care reports/EKG's, group home records)? Report findings @ -yes Differential Diagnosis (chest pain, altered mental status, abdominal pain women, abdominal pain men, vaginal bleeding, weakness, fever, dyspnea, syncope, headache, dizziness, GI bleed, back pain, seizure, CVA, palpatations, mental health, musculoskeletal)? @ -prior EKG interpreted by me (3pts min.). @ -yes X-rays interpreted by me (1pt min.). @ -no CT interpreted by me (1pt min.). @ -no U/S interpreted by me (1pt. min.). @ -no What testing was considered but not performed or refused? (CT, X-rays, U/S, l abs)? Why? @ -none What meds were considered but not given or refused? Why? @ -none Did you discuss the management of the patient with other professionals (professionals i.e. [facility]att, G[employer] INSERTER, lab, RT, psych nurse, social contact worker, mortgage manager, teacher, small business banking officer, bilingual case manager)? Give summary @ -no Was smoking cessation discussed for >3mins.? @ -no Was critical care preformed (if so, how long)? @ -no Were there social determinants of health that impacted care today? How? (Homelessness, low income, unemployed, alcoholism, drug addiction, transportation, low edu. Level, literacy, decrease access to med. care, usp, rehab)? @ -none Was there de-escalation of care discussed even if they declined (Discuss DNR or withdrawal of care, Hospice)? DNR status @ -no What co-morbidities impacted this encounter? (DM, HTN, Smoking, COPD, CAD, Cancer, CVA, ARF, Chemo, Hep., AIDS, mental health diagnosis, sleep apnea, morbid obesity)? @ -none Was patient admitted / discharged? Hospital course, mention meds given and route, prescriptions, significant lab abnormalities, going to OR and other pertinent info. @ - 48 male well-known to the ER today for evaluation of alcohol intoxication. Patient is acutely sober and can be discharged home Discharge Undiagnosed new problem with uncertain prognosis? @ -no Drug Therapy requiring intensive monitoring for toxicity (Heparin, Nitro, Insulin, Cardizem)? @ -no Were any procedures done? @ -no Diagnosis/symptom? @ -Altered mental state with alcohol intoxication Acute, or Chronic, or Acute on Chronic? @ -Acute Uncomplicated (without systemic symptoms) or Complicated (systemic symptoms)? @ -Complicated Side effects of treatment? @ -no Exacerbation, Progression, or Severe Exacerbation? @ -exacerbation Poses a threat to life or bodily function? How? (Chest pain, USA, ME, pneumonia, PE, COPD, DKA, ARF, appy, cholecystitis, CVA, Diverticulitis, Homicidal, Suicidal, threat to staff... and all critical care pts) @ -yes with significant intoxication Medical Decision Making - Medical Decision Making 48 male well-known to the ER today for evaluation of alcohol intoxication. Patient is acutely sober and can be discharged home - Lab Data Result diagrams: 01/22/24 20:42 01/22/24 21:20 Lab Results 01/22/24 01/22/24 01/22/24 Range/Units 20:42 20:42 20:42 WBC 7.3 (3.8-10.6) k/uL RBC 4.26 L (4.30-5.90) m/uL Hgb 12.9 L (13.0-17.5) gm/dL Hct 39.1 (39.0-53.0) % MCV 91.7 (80.0-100.0) fL MCH 30.3 (25.0-35.0) pg MCHC 33.1 (31.0-37.0) g/dL RDW 13.0 (11.5-15.5) % Plt Count 212 (150-450) k/uL MPV 8.2 Neutrophils % 50 % Lymphocytes % 38 % Monocytes % 4 % Eosinophils % 5 % Basophils % 1 % Neutrophils # 3.6 (1.3-7.7) k/uL Lymphocytes # 2.8 (1.0-4.8) k/uL Monocytes # 0.3 (0-1.0) k/uL Eosinophils # 0.4 (0-0.7) k/uL Basophils # 0.1 (0-0.2) k/uL Sodium (137-145) mmol/L Potassium (3.5-5.1) mmol/L Chloride (98-107) mmol/L Carbon Dioxide (22-30) mmol/L Anion Gap mmol/L BUN (9-20) mg/dL Creatinine (0.66-1.25) mg/dL Est GFR (CKD-EPI)AfAm (>60 ml/min/1.73 sqM) Est GFR (CKD-EPI)NonAf (>60 ml/min/1.73 sqM) Glucose (74-99) mg/dL Calcium (8.4-10.2) mg/dL Phosphorus (2.5-4.5) mg/dL Magnesium (1.6-2.3) mg/dL Total Bilirubin (0.2-1.3) mg/dL AST (17-59) U/L ALT (4-49) U/L Alkaline Phosphatase (38-126) U/L Total Protein (6.3-8.2) g/dL Albumin (3.5-5.0) g/dL Lipase (23-300) U/L Urine Color Colorless Urine Appearance Clear (Clear) Urine pH 6.5 (5.0-8.0) Ur Specific [place] 1.003 (1.001-1.035) Urine Protein Negative (Negative) Urine Glucose (UA) Negative (Negative) Urine Ketones Negative (Negative) Urine Blood Negative (Negative) Urine Nitrite Negative (Negative) Urine Bilirubin Negative (Negative) Urine Urobilinogen <2.0 (<2.0) mg/dL Ur Leukocyte Esterase Negative (Negative) Salicylates mg/dL Urine Opiates Screen Not Detected (NotDetected) Ur Oxycodone Screen Not Detected (NotDetected) Urine Methadone Screen Not Detected (NotDetected) Acetaminophen ug/mL Ur Barbiturates Screen Not Detected (NotDetected) U Tricyclic Antidepress Not Detected (NotDetected) Ur Phencyclidine Scrn Not Detected (NotDetected) Ur Amphetamines Screen Not Detected (NotDetected) U Methamphetamines Scrn Not Detected (NotDetected) U Benzodiazepines Scrn Not Detected (NotDetected) Urine Cocaine Screen Not Detected (NotDetected) U Marijuana (THC) Screen Detected H (NotDetected) Serum Alcohol mg/dL 01/22/24 Range/Units 21:20 WBC (3.8-10.6) k/uL RBC (4.30-5.90) m/uL Hgb (13.0-17.5) gm/dL Hct (39.0-53.0) % MCV (80.0-100.0) fL MCH (25.0-35.0) pg MCHC (31.0-37.0) g/dL RDW (11.5-15.5) % Plt Count (150-450) k/uL MPV Neutrophils % % Lymphocytes % % Monocytes % % Eosinophils % % Basophils % % Neutrophils # (1.3-7.7) k/uL Lymphocytes # (1.0-4.8) k/uL Monocytes # (0-1.0) k/uL Eosinophils # (0-0.7) k/uL Basophils # (0-0.2) k/uL Sodium 132 L (137-145) mmol/L Potassium 3.8 (3.5-5.1) mmol/L Chloride 100 (98-107) mmol/L Carbon Dioxide 23 (22-30) mmol/L Anion Gap 9 mmol/L BUN 7 L (9-20) mg/dL Creatinine 0.68 (0.66-1.25) mg/dL Est GFR (CKD-EPI)AfAm >90 (>60 ml/min/1.73 sqM) Est GFR (CKD-EPI)NonAf >90 (>60 ml/min/1.73 sqM) Glucose 81 (74-99) mg/dL Calcium 8.9 (8.4-10.2) mg/dL Phosphorus 4.2 (2.5-4.5) mg/dL Magnesium 1.8 (1.6-2.3) mg/dL Total Bilirubin 0.3 (0.2-1.3) mg/dL AST 23 (17-59) U/L ALT 13 (4-49) U/L Alkaline Phosphatase 57 (38-126) U/L Total Protein 6.7 (6.3-8.2) g/dL Albumin 4.1 (3.5-5.0) g/dL Lipase 55 (23-300) U/L Urine Color Urine Appearance (Clear) Urine pH (5.0-8.0) Ur Specific [place] (1.001-1.035) Urine Protein (Negative) Urine Glucose (UA) (Negative) Urine Ketones (Negative) Urine Blood (Negative) Urine Nitrite (Negative) Urine Bilirubin (Negative) Urine Urobilinogen (<2.0) mg/dL Ur Leukocyte Esterase (Negative) Salicylates <1.0 mg/dL Urine Opiates Screen (NotDetected) Ur Oxycodone Screen (NotDetected) Urine Methadone Screen (NotDetected) Acetaminophen <10.0 ug/mL Ur Barbiturates Screen (NotDetected) U Tricyclic Antidepress (NotDetected) Ur Phencyclidine Scrn (NotDetected) Ur Amphetamines Screen (NotDetected) U Methamphetamines Scrn (NotDetected) U Benzodiazepines Scrn (NotDetected) Urine Cocaine Screen (NotDetected) U Marijuana (THC) Screen (NotDetected) Serum Alcohol 203 H* mg/dL - EKG Data -: EKG Interpreted by Me (EKG sinus 71 MS 176 QRS 91 QTc 389) Disposition Clinical Impression: Alcoholic intoxication Disposition: HOME SELF-CARE Condition: Good Instructions (If sedation given, give patient instructions): Alcohol Intoxication (ED) Is patient prescribed a controlled substance at d/c from ED?: No Referrals: Rishabh Mcdowell MD [Primary Care Provider] - 1-2 days
[2024-01-22] MEDS ORDERED: LORazepam 0.5 MG TAB PO PRN (20:16)
[2024-01-22] MEDS ORDERED: LORazepam 1 MG TAB PO PRN ×3 (20:16)
[2024-01-22] MEDS ORDERED: LORazepam 2 MG/ML INJ IV PRN ×3 (20:16)
[2024-01-22 20:55] LABS: Basophils # (A) 0.1 k/uL (0-0.2); Basophils % (A) 1 %; Eosinophils # (A) 0.4 k/uL (0-0.7); Eosinophils % (A) 5 %; HCT 39.1 % (39.0-53.0); HGB 12.9 gm/dL (13.0-17.5); Lymphocytes # (A) 2.8 k/uL (1.0-4.8); Lymphocytes % (A) 38 %; MCH 30.3 pg (25.0-35.0); MCHC 33.1 g/dL (31.0-37.0); MCV 91.7 fL (80.0-100.0); Mean Platelet Volume 8.2; Monocytes # (A) 0.3 k/uL (0-1.0); Monocytes % (A) 4 %; Neutrophils # (A) 3.6 k/uL (1.3-7.7); Neutrophils % (A) 50 %; Platelet Count 212 k/uL (150-450); RBC 4.26 m/uL (4.30-5.90); WBC 7.3 k/uL (3.8-10.6)
[2024-01-22 20:57] LABS: Appearance,Urine Clear (Clear); Bilirubin,Urine Negative (Negative); Blood,Urine Negative (Negative); Color,Urine Colorless; Glucose,Urine (UA) Negative (Negative); Ketones,Urine Negative (Negative); Leukocyte Esterase,Urine Negative (Negative); Nitrite,Urine Negative (Negative); PH, Urine 6.5 (5.0-8.0); Protein,Urine Negative (Negative); Specific Gravity,Urine 1.003 (1.001-1.035); Urobilinogen,Urine <2.0 mg/dL (<2.0)
[2024-01-22] MEDS: SODIUM CHLORIDE 0.9% 1,000 ML IV STA ×2 (21:00→21:03)
[2024-01-22] MEDS: THIAMINE 100 MG/ML 2 ML VIAL IM STA (21:02)
[2024-01-22 21:08] LABS: Amphetamine Screen,Urine Not Detected (NotDetected); Barbiturate Screen,Urine Not Detected (NotDetected); Benzodiazepines Screen,Urine Not Detected (NotDetected); Cocaine Screen,Urine Not Detected (NotDetected); Methadone Screen, Urine Not Detected (NotDetected); Opiate Screen,Urine Not Detected (NotDetected); Oxycodone Screen, Urine Not Detected (NotDetected); Phencyclidine Screen,Urine Not Detected (NotDetected); Tricyclic Antidepressant,Urine Not Detected (NotDetected); Urn Cannabinoid Scrn Detected (NotDetected)
[2024-01-22 22:07] LABS: ALT 13 U/L (4-49); AST 23 U/L (17-59); Acetaminophen <10.0 ug/mL; African American GFR (CKD) >90 (>60 ml/min/1.73 sqM); Albumin 4.1 g/dL (3.5-5.0); Alkaline Phosphatase 57 U/L (38-126); Anion Gap 9 mmol/L; Blood Urea Nitrogen 7 mg/dL (9-20); Calcium 8.9 mg/dL (8.4-10.2); Carbon Dioxide 23 mmol/L (22-30); Chloride 100 mmol/L (98-107); Glucose 81 mg/dL (74-99); Lipase 55 U/L (23-300); Magnesium 1.8 mg/dL (1.6-2.3); Non-African American GFR(CKD) >90 (>60 ml/min/1.73 sqM); Phosphorus 4.2 mg/dL (2.5-4.5); Potassium 3.8 mmol/L (3.5-5.1); Salicylate <1.0 mg/dL; Sodium 132 mmol/L (137-145); Total Bilirubin 0.3 mg/dL (0.2-1.3); Total Protein 6.7 g/dL (6.3-8.2)
[2024-01-22 22:43] LABS: Alcohol 203 mg/dL
[2024-01-23 05:13] VITALS: RESP 18
[2024-01-23] MEDS ORDERED: THIAMINE 100 MG TAB PO SCH (09:00)
[2024-01-23 09:23] VITALS: BP 134/78; PULSE 78; TEMP 97.9
== END 2024-01-23 09:03 | disposition home or self-care (01) ==
LOC: EC 19:25
DX: F10.129 Alcohol abuse with intoxication, unspecified (principal); F17.200 Nicotine dependence, unspecified, uncomplicated; F12.90 Cannabis use, unspecified, uncomplicated; Y90.7 Blood alcohol level of 200-239 mg/100 ml; Z88.5 Allergy status to narcotic agent; Z88.8 Allergy status to other drugs, medicaments and biological substances
CPT/HCPCS: 36415; 93005; 80053; 83690; 83735; 84100; 85025; 81003; 80306; 80143; 80179; 96360; 96361; 96372; 99285; G0480; J3411; 80320

== ENCOUNTER 2024-04-10 22:59 | Emergency (ER) | payer MEDICARE, OTHER ==
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
[2024-04-11 00:01] LABS: Basophils # (A) 0.1 k/uL (0-0.2); Basophils % (A) 1 %; Eosinophils # (A) 0.3 k/uL (0-0.7); Eosinophils % (A) 4 %; HCT 38.2 % (39.0-53.0); HGB 12.6 gm/dL (13.0-17.5); Lymphocytes # (A) 2.4 k/uL (1.0-4.8); Lymphocytes % (A) 32 %; MCH 30.8 pg (25.0-35.0); MCHC 33.1 g/dL (31.0-37.0); Mean Platelet Volume 7.2; Monocytes # (A) 0.4 k/uL (0-1.0); Monocytes % (A) 5 %; Neutrophils # (A) 4.1 k/uL (1.3-7.7); Neutrophils % (A) 56 %; Platelet Count 228 k/uL (150-450); RBC 4.11 m/uL (4.30-5.90); RDW 13.1 % (11.5-15.5); WBC 7.3 k/uL (3.8-10.6)
[2024-04-11 00:08] LABS: ALT 16 U/L (4-49); AST 28 U/L (17-59); African American GFR (CKD) >90 (>60 ml/min/1.73 sqM); Albumin 4.5 g/dL (3.5-5.0); Alkaline Phosphatase 55 U/L (38-126); Anion Gap 9 mmol/L; Blood Urea Nitrogen 5 mg/dL (9-20); Calcium 9.1 mg/dL (8.4-10.2); Carbon Dioxide 20 mmol/L (22-30); Chloride 98 mmol/L (98-107); Glucose 100 mg/dL (74-99); Magnesium 1.6 mg/dL (1.6-2.3); Non-African American GFR(CKD) >90 (>60 ml/min/1.73 sqM); Potassium 3.5 mmol/L (3.5-5.1); Sodium 127 mmol/L (137-145); Total Bilirubin 0.5 mg/dL (0.2-1.3); Total Protein 6.8 g/dL (6.3-8.2)
[2024-04-11 00:18] LABS: INR 0.9 (<1.2); Partial Thromboplastin Time 24.9 sec (22.0-30.0); Prothrombin Time 10.4 sec (10.0-12.5)
--- NOTE | 2024-04-11 00:29 | XR ---
EXAMINATION TYPE: XR pelvis AP view DATE OF EXAM: 04/11/2024 CLINICAL HISTORY: Fall TECHNIQUE: A single AP view of the pelvis is obtained. COMPARISON: CT abdomen and pelvis November 25, 2021 FINDINGS: Slightly suboptimal due to lucency from overlying bowel gas There is no acute. Displaced fr acture evident in the pelvis. The hip and sacroiliac joints appear symmetric and are thought within normal limits. Pubic symphysis is intact. Overlying clothing or blanket material is present. IMPRESSION: There is no acute displaced fracture in the pelvis.
--- NOTE | 2024-04-11 00:30 | XR ---
EXAMINATION TYPE: XR chest 1V portable DATE OF EXAM: 04/11/2024 COMPARISON: Chest x-ray April 20, 2023 HISTORY: Fall TECHNIQUE: Single frontal view of the chest is obtained. FINDINGS: There is no focal air space opacity, pleural effusion, or pneumothorax seen. The cardiac silhouette size is stable and within normal limits. The osseous structures are intact. IMPRESSION: No acute cardiopulmonary process.
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
[2024-04-11 00:42] LABS: Alcohol 251 mg/dL
[2024-04-11] MEDS: SODIUM CHLORIDE 0.9% 1,000 ML IV STA (01:58)
[2024-04-11 05:48] VITALS: BP 130/71; PULSE 91; RESP 18; TEMP 97.5
[2024-04-11] MEDS: ACETAMINOPHEN TAB 500 MG TAB PO STA (05:56)
== END 2024-04-11 06:05 | disposition home or self-care (01) ==
LOC: EC 22:59
DX: S00.83XA Contusion of other part of head, initial encounter (principal); F10.129 Alcohol abuse with intoxication, unspecified; F17.200 Nicotine dependence, unspecified, uncomplicated; Y90.8 Blood alcohol level of 240 mg/100 ml or more; Z88.5 Allergy status to narcotic agent; V18.4XXA Pedal cycle driver injured in noncollision transport accident in traffic accident, initial encounter; Y92.410 Unspecified street and highway as the place of occurrence of the external cause
CPT/HCPCS: 36415; 93005; 80053; 83735; 85025; 85610; 85730; 72170; 71045; 72125; 70450; 99285; 96360; G0480; 80320